=== PATIENT | female | born 1935 | race Caucasian/White ===

== ENCOUNTER 2017-08-10 22:37 | Inpatient (IN) | payer MEDICARE, SELFPAY ==
[2017-08-10 22:39] VITALS: BP 173/148; PULSE 69; RESP 14; TEMP 36.8; O2SAT 83; BMI 35.5
--- NOTE | 2017-08-10 22:48 | EKG12_ITS ---
Test Reason : Blood Pressure : / mmHG Vent. Rate : 069 BPM Atrial Rate : 077 BPM P-R Int : 000 ms QRS Dur : 122 ms QT Int : 424 ms P-R-T Axes : 000 -12 098 degrees QTc Int : 454 ms Atrial fibrillation Right bundle branch block Abnormal ECG Confirmed by LINDY STOVALL, JENNIFER ([id number]), editor publications STEFANIA WILDER ([id number]) on 08/12/2017 2:13:15 PM Referred By: NEIL Confirmed By:JENNIFER ISRAEL MD
--- NOTE | 2017-08-10 23:00 | RAD_ITS ---
STUDY: X-RAY CHEST REASON FOR EXAM: Female, 82 years old. Hypoxia TECHNIQUE: PA and lateral COMPARISON: None. FINDINGS: Moderate to severe pulmonary edema demonstrated with small bilateral effusions. Heart is enlarged. Normal mediastinum and damian. Normal visualized pulmonary arteries. Tortuous diffusely calcified aortic arch and descending thoracic aorta. Postop change status post median sternotomy and CABG. Spine demonstrates spondylosis and multilevel chronic compression deformities. Normal visualized ribs, clavicles, and shoulders. There is no demonstrated abnormality of the visualized soft tissue structures of the upper abdomen. RAD/Chest PA and Lateral IMPRESSION: Moderate to severe congestive failure with small bilateral effusions Electronically Signed: Curt Rowe MD at 23:23 EDT , Service support ,
[2017-08-10 23:05] LABS: Absolute Lymphocyte Count 1.39 X10^3/ul (0.83-4.51); Basophil# 0.02 X10^3/uL; Basophil% 0.2 % (0-1); Eosinophil# 0.08 X10^3/uL; Eosinophils% 0.8 % (0-5); Hematocrit 33.2 % (37-47); Hemoglobin 9.5 g/dl (12.0-15.0); Lymphocyte # 1.39 X10^3/ul (4.0); Lymphocyte % 13.5 % (19-41); Mean Corp Hgb Conc 28.6 g/gl (32-36); Mean Corpuscular Hgb 27.5 pg (27.0-32.0); Mean Platelet Vol. 11.2 fl (6.2-12.0); Monocyte# 0.75 X10^3/uL; Monocyte% 7.3 % (0-10); Neutrophil # 8.03 X10^3/uL (2.7-7.7); Platelet Count 229 K/mm3 (150-450); RBC Distribution Width CV 18.7 % (11.6-14.6); RBC Distribution Width SD 61.9 fl (35.1-43.9); Red Blood Count 3.46 M/mm3 (4.2-5.4); White Blood Count 10.3 K/mm3 (4.4-11.0)
[2017-08-10 23:07] LABS: POSITIVE COUNT NO; POSITIVE DIFFERENTIAL NO; POSITIVE MORPHOLOGY NO
[2017-08-10 23:12] LABS: International Normalized Ratio 1.8; Prothrombin Time (Protime)PT. 21.1 SECONDS (11.7-14.9)
[2017-08-10 23:16] LABS: Anion Gap 7 (5-15); BUN 26 mg/dL (7-18); BUN/Creat Ratio 17.1 RATIO (10-20); Calcium,Total 8.9 mg/dL (8.5-10.1); Chloride 116 mmol/L (98-107); Creatinine, Serum 1.52 mg/dL (0.55-1.02); EST Glomerular Filtration Rate 35 mL/min (>60); Est Glom Filt Rate - Afr Amer 42 mL/min (>60); Estimated Creatinine Clearance 25.07 ml/min; Glucose 170 mg/dL (74-106); Potassium 4.7 mmol/L (3.5-5.1); Sodium Level 148 mmol/L (136-145)
[2017-08-10 23:32] VITALS: BP 168/74; PULSE 66
[2017-08-10] MEDS: Nitroglycerin Infusion 250 ML 3 MG IV (23:32)
[2017-08-10] MEDS: Furosemide 100 MG/10 ML Vial 80 MG IV (23:32)
--- NOTE | 2017-08-10 23:32 | ED.DCSUM_ITS ---
- ER Visit Summary Date of Service: 08/10/17 Chief Complaint: Acute shortness of breath History of Present Illness: The patient is a 82 F who was brought to the ER because of shortness of breath started 6 hours ago. Steward/Stewardess Second was concerned because she was breathing rapidly and was labored. Patient is not a good informant. Her major complaint is shortness of breath. There is a history of coronary disease, CHF, COPD, hypertension hyperlipidemia. She does have history of peptic ulcer disease and atrial fibrillation. She is on Coumadin. She denies fever, chills night sweats. Denies weight gain or weight loss. Denies change in vision, blurred vision or double vision. She denies any ENT symptoms. She denies palpitations or chest discomfort. Respiratory is positive for dyspnea, dyspnea on exertion orthopnea. She also complains of edema of her lower extremities. She states her right leg is always slightly larger than left. She denies any abdominal pain, nausea vomiting diarrhea. She denies any urologic symptoms. Denies myalgias arthralgias. She denies bruising easily. She does have history of angioedema secondary to lisinopril. Physical Examination: Vital signs are marked for an elevated blood pressure. She is hypoxic with a pulse ox 83% on room air. Her breathing is labored. HEENT is remarkable poor dentition. Lungs reveal rales throughout. Heart is regular. Unable to appreciate murmur secondary to respiratory sounds. Abdomen soft nontender. She does have bilateral pitting edema 2-3+. There is hepatojugular reflux. She is alert and oriented. Test Results: EKG reveals a sinus rhythm with a right bundle branch block. Chest x-ray reveals a borderline cardiomegaly and pulmonary edema. Sternotomy wires noted. CBC is marked for H&H 9.5 and 33.2. Electro panels marked first sodium 148 chloride of 116. BUN is 26 with a 21.52. Glucose elevated 170. INR subtherapeutic 1.8. Troponin is 0.04. BNP is pending. Emergency Department Course and Treatment: Since patient hypoxic she was placed on oxygen. In light of chest x-ray findings BiPAP was ordered. She also was administered 80 mg of Lasix IV push and nitro glycerin drip for preload reduction. Workup was undertaken to rule out cardiac versus pulmonary etiology of her symptoms. Treatment Plan: BiPAP, diuresis and admission to stepdown unit for acute exacerbation of CHF/pulmonary edema Disposition: Admit PCU stepdown Impression: 1. Respiratory failure with hypoxia 2. Pulmonary edema 3. Anemia unknown etiology 4. Hypernatremia 5. End-stage renal disease 6. Subtherapeutic INR This note was generated with [employer] dictation software. It may contain incorrect words, spelling, and punctuation that were not noted in review of the chart prior to signing ED Disposition - Plan for ED Patient: Chief Complaint: Shortness of Breath Referrals: Eliot Loja MD [Primary Care Provider] -
--- NOTE | 2017-08-10 23:34 | ED.RN ---
son called and gave phone call if having questions [phone]
[2017-08-10 23:38] LABS: BNP,B-Type NATRIURETIC PEPTIDE 1166.1 pg/mL (0-100)
--- NOTE | 2017-08-10 23:46 | NURSING ---
SPOKE WITH CONCHITA AND UPDATED HER THAT PT WAS TO BE ADMITTED TO PCU ON BIPAP, CONCHITA STATED IF THERE WERE ANY QUESTIONS OR CONCERNS TO CALL HER AT [phone].
--- NOTE | 2017-08-10 23:51 | HP.PCM_ITS ---
Problem List (1) Acute on chronic combined systolic and diastolic heart failure Status: Acute (2) COPD exacerbation Status: Acute (3) Afib Status: Acute (4) Gastric ulcer Status: Chronic (5) Colon polyps Status: Chronic (6) CHF (congestive heart failure) Status: Acute (7) CAD (coronary artery disease) Status: Acute (8) Chest pain Status: Acute (9) Diabetes Status: Chronic (10) Dizziness Status: Chronic (11) Fall Status: Acute (12) SOB (shortness of breath) Status: Acute (13) Chronic coronary artery disease Status: Chronic History of Present Illness Date of Admission: 08/10/17 Chief Complaint: Shortness of breath for today, for about 6 hours prior to arrival The patient is a 82 year old F with history of chronic combined systolic and diastolic heart failure as per last echo in 08/2014, coronary artery status post CABG about 10 years ago came to ER with acute onset of shortness of breath for about 6 hours prior to arrival. Patient denies chest pain. Patient has history of COPD, hypertension and paroxysmal A. fib and on Coumadin. She denies fever, chills, sore throat or URI. In ED, she was put on BiPAP because of acute hypoxic respiratory failure along with tachypnea. Chest x-ray shows pulmonary edema. ER physician Dr. Lerner started on IV nitroglycerin drip. [] Past Medical History Past Medical History (Chronic Problems): Chronic Problems Gastric ulcer (Chronic) Colon polyps (Chronic) Diabetes (Chronic) Dizziness (Chronic) Chronic coronary artery disease (Chronic) Allergies LEANDER Inhibitors Allergy (Verified 07/17/16 16:14) Unknown Home Medications: Ambulatory Orders Medication Instructions Recorded Atorvastatin Calcium [Lipitor] 40 mg PO QHS 04/19/17 Calcium Carbonate/Vitamin D3 1 each PO BID 04/19/17 [Calcium 500-Vit D3 600 Tablet] Furosemide [Lasix] 40 mg PO DAILY 04/19/17 Hydralazine HCl 50 mg PO 4X/DAY 04/19/17 Insulin Detemir [Levemir] 30 unit SQ BID 04/19/17 Isosorbide Mononitrate [Imdur] 30 mg PO DAILY 04/19/17 Metformin HCl [Metformin HCl ER] 1,000 mg PO DAILY 04/19/17 Metoprolol Tartrate [Lopressor 50 mg PO BID 01/06/18 (Beta Rah)] Mirtazapine [Remeron] 15 mg PO QHS 04/19/17 Multivitamin [Daily Multiple 1 each PO DAILY 04/19/17 Vitamin] Omeprazole 40 mg PO DAILY 04/19/17 Warfarin [Coumadin ([facility])] 6 mg PO SUMOWEFRSA 04/19/17 Spironolactone 12.5 mg PO DAILY 08/10/17 Warfarin [Coumadin ([facility])] 3 mg PO TUTH 08/10/17 Surgical History: - - appendectemy, cholecystectemy, tonsil and adenoids, cabg - she cannot having any stents Smoking Status: Never smoker - *Family History Maternal History Items: No pertinent history Review of Systems Constitutional: Denies: Chills, Fever, Weight Change HEENT: Denies: Head Aches, Sinus Congestion, Sinus Drainage Cardiovascular: Reports: Edema. Denies: Chest Pain, Palpitations Respiratory: Reports: Shortness of Breath, Shortness of breath upon exertion. Denies: Cough, Shortness of breath at rest, Sputum production Gastrointestinal: Denies: Abdominal Pain, Nausea, Vomiting Genitourinary: Denies: Dysuria Musculoskeletal: Reports: Joint Pain. Denies: Joint Tenderness Skin: Denies: Rash, Wounds Neurological: Denies: Numbness, Tingling, Focal weakness Psychiatric: Denies: Anxiety, Depression, Homicidal Ideations, Suicidal Ideations Hematologic/ Lymphatic: Denies: Easy Bruising, Easy Bleeding VTE Information - Inpt Only VTE Present on Admission: No VTE Mechan Device Prophylaxis: Knee High DARLEEN Hose VTE Pharm Prophylaxis ordered?: Yes Patient Problems: Active and Suspected Problems Acute on chronic combined systolic and diastolic heart failure (Acute) COPD exacerbation (Acute) - Physical Exam General: Alert, Oriented x3, Cooperative HEENT: Atraumatic, PERRLA, EOMI, Normocephalic Neck: Supple, No JVD - Not able to assess adequately because of short neck and patient also on BiPAP, Negative Carotid Bruits Lungs: Diminished, Rhonchi, Tachypneic, Using Accessory Muscles, Wheezes, - - On BiPAP Cardiovascular: Normal S1, Normal S2, Irregular Rate, Murmur Abdomen: Bowel Sounds Present, Soft, Non Tender, Non-Distended Extremities: Capillary Refill Less than 3 Seconds, Edema Skin: No rashes, No breakdown Musculoskeletal: No Tenderness to Palpation of Joints or Extremities, Arthritic Changes Neurological: Cranial nerves II-XII grossly intact Psych/Mental Status: Normal Affect, Appropriate Vital Signs Temp Pulse Resp BP Pulse Ox 98.3 F 66 14 168/74 H 83 08/10/17 22:39 08/10/17 23:32 08/10/17 22:39 08/10/17 23:32 08/10/17 22:39 Oxygen Flow Rate (L/min) 2 Oxygen Delivery Method Nasal Cannula Weight: 207 lb 0.225 oz Body Mass Index (BMI) 35.5 Finger Stick Blood Glucose 65 Laboratory Tests Past 24 Hrs 08/10/17 08/10/17 08/10/17 22:44 22:44 22:44 WBC 10.3 RBC 3.46 L Hgb 9.5 L Hct 33.2 L MCV 96.0 MCH 27.5 MCHC 28.6 L RDW 18.7 H RDW Differential 61.9 H Plt Count 229 MPV 11.2 Immature Gran % (Auto) 0.200 Neut % (Auto) 78.0 H Lymph % (Auto) 13.5 L Roberts % (Auto) 7.3 Eos % (Auto) 0.8 Baso % (Auto) 0.2 Absolute Neuts (auto) 8.0 H Absolute Lymphs (auto) 1.39 Total Counted Not Reportable PT INR Sodium 148 H Potassium 4.7 Chloride 116 H Carbon Dioxide 25.0 Anion Gap 7 BUN 26 H Creatinine 1.52 H Estim Creat Clear Calc 25.07 Est GFR (MDRD) Af Amer 42 L Est GFR (MDRD) Non-Af 35 L BUN/Creatinine Ratio 17.1 Glucose 170 H Calcium 8.9 Troponin I 0.04 B-Natriuretic Peptide 1166.1 H 08/10/17 22:44 WBC RBC Hgb Hct MCV MCH MCHC RDW RDW Differential Plt Count MPV Immature Gran % (Auto) Neut % (Auto) Lymph % (Auto) Roberts % (Auto) Eos % (Auto) Baso % (Auto) Absolute Neuts (auto) Absolute Lymphs (auto) Total Counted PT 21.1 H INR 1.8 Sodium Potassium Chloride Carbon Dioxide Anion Gap BUN Creatinine Estim Creat Clear Calc Est GFR (MDRD) Af Amer Est GFR (MDRD) Non-Af BUN/Creatinine Ratio Glucose Calcium Troponin I B-Natriuretic Peptide Assessment/Plan Active and Suspected Problems Acute on chronic combined systolic and diastolic heart failure (Acute) COPD exacerbation (Acute) The patient is a 82 year old F with history of chronic combined systolic and diastolic heart failure as per last echo in 08/2014, coronary artery status post CABG about 10 years ago came to ER with acute onset of shortness of breath for about 6 hours prior to arrival. Patient denies chest pain. Patient has history of COPD, hypertension and paroxysmal A. fib and on Coumadin. She denies fever, chills, sore throat or URI. In ED, she was put on BiPAP because of acute hypoxic respiratory failure along with tachypnea. Chest x-ray shows pulmonary edema. ER physician Dr. Lerner started on IV nitroglycerin drip. ABG shows A. fib with RBBB at 69 bpm. Previous EKG in August 2015 was normal sinus rhythm and prior to that in 2014 was A. fib. 1. Acute hypoxic respiratory failure most probably secondary to pulmonary edema : Currently patient is on BiPAP. Patient is admitted on stepdown unit. ABG ordered. Titrate the BiPAP accordingly. 2. Acute on chronic systolic and diastolic combined heart failure with pulmonary edema with history of coronary artery disease history of ischemic cardiomyopathy: Patient started on IV Lasix. He got Lasix 80 mg in ER. Patient does not have any chest pain/pressure. First troponin negative. Discontinue nitro drip and started on nitroglycerin 2% ointment every 6 hourly. Patient on heart failure is in including metoprolol, hydralazine, nitrate, aspirin. Cardiology consult. 2D echo ordered. Cycle cardiac enzymes. 3. COPD with mild bronchitis: Started on bronchodilator [id number], IV Solu-Medrol, incentive spirometry, oxygen therapy and Mucinex. 4. Other chronic comorbidities include coronary artery disease post CABG, history of gastric ulcer, paroxysmal A. fib on Coumadin: DVT prophylaxis: INR is 1.8. Coumadin resumed. Watch INR. As the patient has history of gastric ulcer does not want to be aggressive anticoagulation. Code Visit Inpatient E&M: 76962 Init Hosp L3
[2017-08-10 23:55] VITALS: PULSE 62; RESP 12; RESP 26; O2SAT 98
[2017-08-10 23:56] VITALS: BP 183/73; PULSE 61; RESP 22; O2SAT 97
[2017-08-11] VITALS (25 sets, daily range): BP systolic 115–167; BP diastolic 38–88; PULSE 40–79; RESP 16–22; TEMP 36.6–37; O2SAT 92–98; BMI 33.7
[2017-08-11 02:36] LABS: Magnesium 1.8 mg/dL (1.6-2.6)
[2017-08-11] MEDS: Nitroglycerin Oint 1 INCH PACKET 2 INCH TRANSDERM. ×3 (03:40→17:16)
[2017-08-11] MEDS: 0.9% NaCl Peripheral Flush Adult/Peds IV (05:23)
--- NOTE | 2017-08-11 05:55 | ECHOD_ITS ---
Reason For Study: CHF Procedure This was a 2D Doppler, Color Flow transthoracic echocardiogram. Exam performed portable in patient room. Left Ventricle Normal LV size. Severe concentric left ventricular hypertrophy. Left ventricular systolic function is lower limits of normal. The estimated ejection fraction is 50 %. Mild segmental systolic dysfunction (see wall motion). Unable to assess diastolic dysfunction. [place] : Akinetic. Lateral [place] : Hypokinetic. Mid-anteroseptal : Hypokinetic. The rest of the wall segments are normal. Right Ventricle Normal RV size. Normal systolic function. Atria The left atrium is mildly enlarged. Normal right atrium. Mitral Valve Mild diffuse mitral valve thickening. Tricuspid Valve Normal tricuspid valve. Mild to moderate (1-2+) tricuspid valve insufficiency. Pulmonary artery systolic pressure is 46 mmHg. Mild pulmonary hypertension. Aortic Valve Trisinus/trileaflet aortic valve. Mild focal aortic valve calcification. Pulmonic Valve Normal pulmonic valve. Great Vessels Calcified aortic root. The pulmonary artery is normal size. Normal inferior vena cava. Pericardium/Pleural No pericardial effusion. MMode/2D Measurements & Calculations LVIDd: 5.3 cm IVSd: 1.8 cm Ao root diam: 3.1 cm LVIDs: 3.7 cm LVPWd: 1.7 cm RVDd: 3.6 cm FS: 30.3 % LAV(MOD-bp): 62.7 ml EDV(MOD-sp4): 100.4 ml SV(MOD-sp4): 50.9 ml LAV(MOD-bp) Indexed: 32.4 ml/m2 ESV(MOD-sp4): 49.4 ml LAV(MOD-sp2): 56.7 ml EF(MOD-sp4): 50.8 % LAV(MOD-sp4): 67.7 ml LA A4 area: 21.1 cm2 RA A4 area: 16.0 cm2 Doppler Measurements & Calculations MV E max luisa: 133.5 cm/sec Ao V2 max: 151.3 cm/sec LV V1 max: 78.5 cm/sec Ao max P.2 mmHg LV V1 max P.5 mmHg PA V2 max: 106.3 cm/sec TR max luisa: 310.1 cm/sec TR max P.6 mmHg Interpretation Summary Normal LV size. Severe concentric left ventricular hypertrophy. The estimated ejection fraction is 50 %. Mild segmental systolic dysfunction (see wall motion). Unable to assess diastolic dysfunction. Pulmonary artery systolic pressure is 46 mmHg. Mild pulmonary hypertension. Compared to prior study, there is no significant change. Ordering Physician: Ariel Mckeon Referring Physician: JAYCE TELLO Performed By: Luann Lunsford RDCS
[2017-08-11] MEDS: Ipratropium/Albuterol Sulfate 3 ML AMPUL.NEB INHALATION ×3 (06:38→18:58)
[2017-08-11 06:44] LABS: Absolute Lymphocyte Count 1.02 X10^3/ul (0.83-4.51); Absolute Neutrophil Count 6.9 X10^3/uL (2.0-7.7); Basophil# 0.02 X10^3/uL; Basophil% 0.2 % (0-1); Eosinophil# 0.09 X10^3/uL; Hematocrit 32.1 % (37-47); Hemoglobin 9.1 g/dl (12.0-15.0); Lymphocyte # 1.02 X10^3/ul (4.0); Lymphocyte % 11.8 % (19-41); Mean Corp Hgb Conc 28.3 g/gl (32-36); Mean Corpuscular Volume 95.3 fL (81-99); Mean Platelet Vol. 11.3 fl (6.2-12.0); Monocyte# 0.62 X10^3/uL; Monocyte% 7.2 % (0-10); Neutrophil # 6.86 X10^3/uL (2.7-7.7); Neutrophil % 79.6 % (47-70); POSITIVE COUNT NO; POSITIVE DIFFERENTIAL NO; POSITIVE MORPHOLOGY NO; Platelet Count 225 K/mm3 (150-450); RBC Distribution Width CV 18.4 % (11.6-14.6); RBC Distribution Width SD 61.1 fl (35.1-43.9); Red Blood Count 3.37 M/mm3 (4.2-5.4); White Blood Count 8.6 K/mm3 (4.4-11.0)
[2017-08-11 06:53] LABS: Anion Gap 5 (5-15); BUN 22 mg/dL (7-18); BUN/Creat Ratio 15.3 RATIO (10-20); Calcium,Total 8.6 mg/dL (8.5-10.1); Chloride 114 mmol/L (98-107); Cholesterol 70 mg/dL (200); Creatinine, Serum 1.44 mg/dL (0.55-1.02); EST Glomerular Filtration Rate 37 mL/min (>60); Est Glom Filt Rate - Afr Amer 45 mL/min (>60); Estimated Creatinine Clearance 26.46 ml/min; Glucose 72 mg/dL (74-106); High Density Lipoprotein 29 mg/dL; Potassium 4.1 mmol/L (3.5-5.1); Sodium Level 148 mmol/L (136-145); Thyroid Stim Hormone (TSH) 0.97 uIU/mL (0.358-3.74); Triglycerides 102 mg/dL; Very Low Density Lipoprotein 20 mg/dL (5-40)
--- NOTE | 2017-08-11 08:01 | CON.PCM_ITS ---
Reason for Consult Date of Consultation: 08/11/17 Reason for Consultation: Shortness of breath. History of Present Illness: The patient is a 82 year old F who presented to the emergency room complaining of shortness of breath as well as pedal edema. She does have a history of paroxysmal atrial fibrillation obstructive lung disease and coronary artery disease status post carotid bypass surgery. She has been following up with Dr. Bladimir Lemon in the office but says that her clinical condition has been getting worse and so she presented to the emergency room where she was evaluated and she was noted to be in clinical heart failure. In addition she was also noted to be in atrial fibrillation and she had an elevated natriuretic peptide level. Due to the above she was treated with intravenous Lasix and subsequently intravenous nitroglycerin and then she was admitted to the telemetry care unit. Cardiology was called for further evaluation and management. [] Past Medical History Allergies/Adverse Reactions: Allergies LEANDER Inhibitors Allergy (Verified 07/17/16 16:14) Unknown Home Medications: Ambulatory Orders Medication Instructions Recorded Atorvastatin Calcium [Lipitor] 40 mg PO QHS 04/19/17 Calcium Carbonate/Vitamin D3 1 each PO BID 04/19/17 [Calcium 500-Vit D3 600 Tablet] Furosemide [Lasix] 40 mg PO DAILY 04/19/17 Hydralazine HCl 50 mg PO 4X/DAY 04/19/17 Insulin Detemir [Levemir] 30 unit SQ BID 04/19/17 Isosorbide Mononitrate [Imdur] 30 mg PO DAILY 04/19/17 Metformin HCl [Metformin HCl ER] 1,000 mg PO DAILY 04/19/17 Metoprolol Tartrate [Lopressor 50 mg PO BID 04/19/17 (Beta Rah)] Mirtazapine [Remeron] 15 mg PO QHS 04/19/17 Multivitamin [Daily Multiple 1 each PO DAILY 04/19/17 Vitamin] Omeprazole 40 mg PO DAILY 04/19/17 Warfarin [Coumadin ([facility])] 6 mg PO SUMOWEFRSA 04/19/17 Spironolactone 12.5 mg PO DAILY 08/10/17 Warfarin [Coumadin ([facility])] 3 mg PO TUTH 08/10/17 Past Medical History (Chronic Problems): Chronic Problems Gastric ulcer (Chronic) Colon polyps (Chronic) Diabetes (Chronic) Dizziness (Chronic) Chronic coronary artery disease (Chronic) Surgical History: coronary bypass surgery, - - appendectemy, cholecystectemy, tonsil and adenoids, cabg - she cannot having any stents - *Family History Maternal History Items: No pertinent history Smoking Status: Never smoker Alcohol: None Drugs: None Review of Systems - Review of Systems General: Denies: Fever, Night Sweats, Fatigue Cardiovascular: Reports: Shortness of Breath, Shortness of Breath at Rest, Shortness of Breath with Exertion. Denies: Chest Discomfort, Orthopnea, PND, Peripheral Edema, Palpitations, Lightheadedness, Dizziness, Near Syncope, Syncope Respiratory: Denies: Cough, Sputum Production, Hemoptysis Gastrointestinal: Denies: Hematemesis, Hematochezia, Melena Genitourinary: Denies: Dysuria, Hematuria Skin: Denies: Rash Subjectve: Patient seen and evaluated. Appears to be breathing much better this morning. Objective: Vital Signs Temp Pulse Resp BP Pulse Ox 98.1 F 64 20 H 153/67 H 98 08/11/17 04:00 08/11/17 07:40 08/11/17 04:00 08/11/17 04:00 08/11/17 04:00 Oxygen Flow Rate (L/min) 2 Oxygen Delivery Method Nasal Cannula Weight: 196 lb 6.91 oz Body Mass Index (BMI) 33.7 Intake and Output for Last 24 Hours 08/09/17 08/10/17 08/11/17 23:59 23:59 23:59 Intake Total 13.7 / 13.7 Output Total 1800 / 1800 Balance -1786.3 / -1786.3 General: Awake, Alert, Oriented x 3 HEENT: PERRL, EOMI, Sclera Non Icteric Neck: Supple, Good ROM, No Lymph Node Enlargement Lungs: Clear to auscultation Cardiovascular: Irregular Rhythm, Normal S1, Normal S2, No Murmurs, No Rubs, No Gallops Vascular: No Carotid Bruits, Normal Femoral Pulses, Normal Radial Pulses, Normal Dorsalis Pedal Pulse, Normal Posterior Tibial Pulses Abdomen: Bowel Sounds Present, Soft, Non Tender, No HSM, No Organomegaly Extremities: No Cyanosis, No Clubbing, No edema, Trace LLE Edema Neurological: No Focal Motor or Sensory Deficit Psych/Mental Status: Appropriate 08/11/17 02:59: Troponin I 0.03 08/11/17 06:20: WBC 8.6, RBC 3.37 L, Hgb 9.1 L, Hct 32.1 L, MCV 95.3, MCH 27.0, MCHC 28.3 L, RDW 18.4 H, RDW Differential 61.1 H, Plt Count 225, MPV 11.3, Immature Gran % (Auto) 0.200, Neut % (Auto) 79.6 H, Lymph % (Auto) 11.8 L, [place] % (Auto) 7.2, Eos % (Auto) 1.0, Baso % (Auto) 0.2, Absolute Neuts (auto) 6.9, Total Counted Not Reportable 08/11/17 06:20: Sodium 148 H, Potassium 4.1, Chloride 114 H, Carbon Dioxide 29.0 , Anion Gap 5, BUN 22 H, Creatinine 1.44 H, Est GFR (MDRD) Af Amer 45 L, Est GFR (MDRD) Non-Af 37 L, BUN/Creatinine Ratio 15.3, Glucose 72 L, Calcium 8.6, Troponin I 0.04, Triglycerides 102, Cholesterol 70, LDL Cholesterol 21, VLDL Cholesterol 20, HDL Cholesterol 29 L Rhythm: EKG: Atrial fibrillation with a controlled ventricular response rate and right bundle branch block Assessment/Plan 1. Congestive heart failure-acute diastolic She presents with shortness of breath pedal edema and has x-ray findings suggestive of congestive heart failure the etiology of the above is unclear at this time but likely secondary to atrial fibrillation which appears to be paroxysmal and new at this time. My recommendation today will be to reevaluate her left ventricular ejection fraction with the echocardiogram and to continue her beta-rah as well as continue the diuretics which have been instituted. She appears to have diuresed quite a bit and is feeling much better. Depending on the findings further recommendations will be made. 2. Coronary artery disease. Patient has evidence of known coronary artery disease but has not had any angina at this time there are no EKG changes and troponin levels are not significantly abnormal . We will continue to monitor the above on the medical therapy and see how she does. 3. Hypertension. Patient has known history of hypertension and at this particular time her blood pressure is fairly well-controlled so we will continue medical therapy with no major changes. Depending on the findings further recommendations will then be made. 4. Paroxysmal atrial fibrillation. Patient has evidence of paroxysmal atrial fibrillation and will remain anticoagulated for now. An echocardiogram will be reevaluated to assess her left ventricular systolic function. Depending on the findings further recommendations will be made. She appears to be asymptomatic with regard to the above though however. Thank you for allowing me to participate in the care of your patient. Please don't hesitate to call if any issues arise
[2017-08-11] MEDS: hydrALAZINE 50 MG Tablet PO ×3 (10:25→21:48)
[2017-08-11] MEDS: Pantoprazole Sodium 40 MG Tablet PO (10:25)
[2017-08-11 10:26] LABS: Bedside Glucose 160 mg/dL (70-110)
[2017-08-11] MEDS: Metoprolol Tartrate 25 MG Tablet 12.5 MG PO ×2 (10:27→21:48)
[2017-08-11] MEDS: guaiFENesin 1,200 MG Tablet 1200 MG PO ×2 (10:28→21:48)
[2017-08-11] MEDS: Polyethylene Glycol 3350 17 GM PACKET PO (10:30)
[2017-08-11] MEDS: Azithromycin 250 MG Tablet 500 MG PO (10:34)
--- NOTE | 2017-08-11 11:09 | RAD_ITS ---
STUDY: X-RAY CHEST REASON FOR EXAM: Female, 82 years old. Fever and cough TECHNIQUE: PA and lateral views of the chest. COMPARISON: Yesterday FINDINGS: EKG leads overlie the chest Lungs are expanded with persistent superimposed interstitial edema and small bilateral pleural effusions. Findings are again consistent with CHF, and there has been little significant interval change since the previous study. Previous CABG with stable cardiomegaly. Normal mediastinum and damian. Normal visualized pulmonary arteries. Normal visualized aortic arch and descending thoracic aorta. There are diffuse degenerative changes of the visualized thoracic spine. There is degenerative osteoarthritis of the bilateral shoulders. There is no demonstrated abnormality of the visualized soft tissue structures of the upper abdomen. RAD/Chest PA and Lateral IMPRESSION: No interval change Electronically Signed: Marito Molina MD at 11:36 EDT , Service support ,
--- NOTE | 2017-08-11 11:26 | CASEMGMT ---
Face to Face with patient for initial transition planning/care coordination assessment. RN LOC introduced self and role at [facility], pt voices understanding and consents to assessment at this time. Pt is lying in bed in no distress at this time. Pt is A/O x3 at this time and answers most questions appropriately at this time. Care providers, pharmacy, and demographics verified. See attached link. Pt voices no further concerns/needs at this time. Advised pt to ask for CM if any further questions/concerns/needs arise, voices understanding. PLAN: Home w/ resumption of aides/day care. [place] JANETT MONTERROSO
--- NOTE | 2017-08-11 14:11 | PCM.PN.HOSP ---
Patient Problems: Active and Suspected Problems Acute on chronic combined systolic and diastolic heart failure (Acute) Acute respiratory failure with hypoxia (Acute) Subjective: Breathing better. No chest pain. Vitals/I&O's: Vital Signs Temp Pulse Resp BP Pulse Ox 36.7 C 71 20 H 115/38 L 96 08/11/17 12:00 08/11/17 12:00 08/11/17 12:00 08/11/17 13:11 08/11/17 12:00 Oxygen Flow Rate (L/min) 4 Oxygen Delivery Method Room Air Weight: 89.1 kg Body Mass Index (BMI) 33.7 Intake and Output for Last 24 Hours 08/09/17 08/10/17 08/11/17 23:59 23:59 23:59 Intake Total 618.8 / 618.8 Output Total 3100 / 3100 Balance -2481.2 / -2481.2 General: Alert, Cooperative, No apparent distress HEENT: Atraumatic, Normocephalic Neck: No JVD, Thyroid Normal Size and Texture Lungs: Clear to auscultation - anteriorly, Normal air movement, No rhonchi, No wheeze Cardiovascular: Regular rate, Regular Rhythm, Normal S1, Normal S2, No murmurs Abdomen: Bowel Sounds Present, Soft, Non Tender, Non-Distended, No Hepato-splenomegaly Extremities: No edema, No Calf Tenderness Skin: No rashes, No breakdown Musculoskeletal: No Tenderness to Palpation of Joints or Extremities, No Muscle Wasting Psych/Mental Status: Normal Affect, Appropriate Microbiology Past 72 Hours 08/11/17 03:25 Mucosa - Nose Influenza Types A,B Direct FA (SIXTO) - Final Laboratory Results 08/11/17 02:59: Troponin I 0.03 08/11/17 06:20: WBC 8.6, RBC 3.37 L, Hgb 9.1 L, Hct 32.1 L, MCV 95.3, MCH 27.0, MCHC 28.3 L, RDW 18.4 H, RDW Differential 61.1 H, Plt Count 225, MPV 11.3, Immature Gran % (Auto) 0.200, Neut % (Auto) 79.6 H, Lymph % (Auto) 11.8 L, [place] % (Auto) 7.2, Eos % (Auto) 1.0, Baso % (Auto) 0.2, Absolute Neuts (auto) 6.9, Absolute Lymphs (auto) 1.02, Total Counted Not Reportable 08/11/17 06:20: Sodium 148 H, Potassium 4.1, Chloride 114 H, Carbon Dioxide 29.0, Anion Gap 5, BUN 22 H, Creatinine 1.44 H, Estim Creat Clear Calc 26.46, Est GFR (MDRD) Af Amer 45 L, Est GFR (MDRD) Non-Af 37 L, BUN/Creatinine Ratio 15.3, Glucose 72 L, Calcium 8.6, Troponin I 0.04, Triglycerides 102, Cholesterol 70, LDL Cholesterol 21, VLDL Cholesterol 20, HDL Cholesterol 29 L, TSH 0.97 08/11/17 10:21: POC Glucose 160 H 08/11/17 12:30: Troponin I 0.03 Current Medications Acetaminophen (Tylenol) 650 mg PO Q6H PRN PRN PRN Reason: Mild Pain (scale 0-3)/T>100.7 Al Hydroxide/Mg Hydroxide (Mylanta Ii) 30 ml PO Q6H PRN PRN PRN Reason: Gastric Burning Albuterol Sulfate (Ventolin Aerosols) 2.5 mg INHALATION Q2H PRN PRN PRN Reason: SHORTNESS OF BREATH Albuterol/Ipratropium (Duoneb) 3 ml INHALATION Q4HWA.RT REPLACED BY [facility] Last Admin: 08/11/17 11:10 Dose: Not Given Atorvastatin Calcium (Lipitor) 40 mg PO QHS REPLACED BY [facility] Azithromycin (Zithromax) 500 mg PO DAILY REPLACED BY [facility] Stop: 08/13/17 10:01 Last Admin: 08/11/17 10:34 Dose: 500 mg Bisacodyl (Dulcolax) 10 mg RECTAL DAILY PRN PRN PRN Reason: Constipation Docusate Sodium (Colace) 200 mg PO BID PRN PRN PRN Reason: Constipation Guaifenesin (Mucinex) 1,200 mg PO BID REPLACED BY [facility] Last Admin: 08/11/17 10:28 Dose: 1,200 mg Hydralazine HCl (Apresoline) 50 mg PO 4X/DAY REPLACED BY [facility] Last Admin: 08/11/17 10:25 Dose: 50 mg Furosemide 500 mg/ (Miscellaneous Information) 50 mls @ 1 mls/hr CONT INF .Q50H REPLACED BY [facility] PRN Reason: 10 MG/HR Last Admin: 08/11/17 03:34 Dose: 1 mls/hr Insulin Detemir (Levemir (Bkc)) 30 units SC BID REPLACED BY [facility] Last Admin: 08/11/17 10:23 Dose: 30 u Methylprednisolone (Solu-Medrol) 40 mg IV Q8 REPLACED BY [facility] Last Admin: 08/11/17 05:23 Dose: 40 mg Metoprolol Tartrate (Lopressor (Beta Rah)) 12.5 mg PO BID REPLACED BY [facility] Last Admin: 08/11/17 10:27 Dose: 12.5 mg Mirtazapine (Remeron) 15 mg PO QHS REPLACED BY [facility] Morphine Sulfate () 1 - 2 mg IV Q4H PRN PRN PRN Reason: SEVERE PAIN (6-10/10) Nitroglycerin (Nitrobid) 2 inch TRANSDERM. Q6 REPLACED BY [facility] Last Admin: 08/11/17 13:11 Dose: 2 inch Nutritional Formula (Lactose Free) (Glucerna Shake) 120 ml PO TIDCM REPLACED BY [facility] Ondansetron HCl (Zofran) 4 mg IV Q8H PRN PRN PRN Reason: Nausea Oxycodone HCl (Oxyir) 5 mg PO Q4H PRN PRN PRN Reason: Moderate Pain (pain scale 4-5) Pantoprazole Sodium (Protonix) 40 mg PO DAILY REPLACED BY [facility] Last Admin: 08/11/17 10:25 Dose: 40 mg Polyethylene Glycol (Miralax) 17 gm PO DAILY REPLACED BY [facility] Last Admin: 08/11/17 10:30 Dose: 17 gm Sodium Chloride () 5 - 30 ml IV UD PRN PRN Reason: SALINE FLUSH Last Admin: 08/11/17 05:23 Dose: 30 ml Warfarin Sodium (Coumadin (Pbkc)) 3 mg PO TuTh@1700 REPLACED BY [facility] Warfarin Sodium (Coumadin (Pbkc)) 6 mg PO SuMoWeFrSa@1700 REPLACED BY [facility] Medical Necessity - Tobacco Use Smoking Status: Never smoker Assessment/Plan Active and Suspected Problems Acute on chronic combined systolic and diastolic heart failure (Acute) Acute respiratory failure with hypoxia (Acute) 1. acute HFpEF EF 50%. complicated by mild pulm HTN improved weight down to 89.1, from 93.9kg change lasix to bolus from gtt (40 BID) No ACEi nor ARB, given CKD. Instead, continue hydralazine and Imdur 2. acute hypoxic respiratory failure secondary to #1 doubt COPD exacerbation and pneumonia DC steroids and abx. 3. CKD 3 stable avoid nephrotoxic agents 4. pAfib on coumadin metoprolol tartrate 5. DVT proph: on coumadin 6. DM2 fair control continue levemir and SSI stop metformin in light of CHF Code Visit Inpatient E&M: 88990 Subs Hosp L2
--- NOTE | 2017-08-11 14:19 | PN_ITS ---
Patient Problems: Active and Suspected Problems Acute on chronic combined systolic and diastolic heart failure (Acute) Acute respiratory failure with hypoxia (Acute) Subjective: Breathing better. No chest pain. Vitals/I&O's: Vital Signs Temp Pulse Resp BP Pulse Ox 36.7 C 71 20 H 115/38 L 96 08/11/17 12:00 08/11/17 12:00 08/11/17 12:00 08/11/17 13:11 08/11/17 12:00 Oxygen Flow Rate (L/min) 4 Oxygen Delivery Method Room Air Weight: 89.1 kg Body Mass Index (BMI) 33.7 Intake and Output for Last 24 Hours 08/09/17 08/10/17 08/11/17 23:59 23:59 23:59 Intake Total 618.8 / 618.8 Output Total 3100 / 3100 Balance -2481.2 / -2481.2 General: Alert, Cooperative, No apparent distress HEENT: Atraumatic, Normocephalic Neck: No JVD, Thyroid Normal Size and Texture Lungs: Clear to auscultation - anteriorly, Normal air movement, No rhonchi, No wheeze Cardiovascular: Regular rate, Regular Rhythm, Normal S1, Normal S2, No murmurs Abdomen: Bowel Sounds Present, Soft, Non Tender, Non-Distended, No Hepato- splenomegaly Extremities: No edema, No Calf Tenderness Skin: No rashes, No breakdown Musculoskeletal: No Tenderness to Palpation of Joints or Extremities, No Muscle Wasting Psych/Mental Status: Normal Affect, Appropriate Microbiology Past 72 Hours 08/11/17 03:25 Mucosa - Nose Influenza Types A,B Direct FA (SIXTO) - Final Laboratory Results 08/11/17 02:59: Troponin I 0.03 08/11/17 06:20: WBC 8.6, RBC 3.37 L, Hgb 9.1 L, Hct 32.1 L, MCV 95.3, MCH 27.0, MCHC 28.3 L, RDW 18.4 H, RDW Differential 61.1 H, Plt Count 225, MPV 11.3, Immature Gran % (Auto) 0.200, Neut % (Auto) 79.6 H, Lymph % (Auto) 11.8 L, [place] % (Auto) 7.2, Eos % (Auto) 1.0, Baso % (Auto) 0.2, Absolute Neuts (auto) 6.9, Absolute Lymphs (auto) 1.02, Total Counted Not Reportable 08/11/17 06:20: Sodium 148 H, Potassium 4.1, Chloride 114 H, Carbon Dioxide 29.0 , Anion Gap 5, BUN 22 H, Creatinine 1.44 H, Estim Creat Clear Calc 26.46, Est GFR (MDRD) Af Amer 45 L, Est GFR (MDRD) Non-Af 37 L, BUN/Creatinine Ratio 15.3, Glucose 72 L, Calcium 8.6, Troponin I 0.04, Triglycerides 102, Cholesterol 70, LDL Cholesterol 21, VLDL Cholesterol 20, HDL Cholesterol 29 L, TSH 0.97 08/11/17 10:21: POC Glucose 160 H 08/11/17 12:30: Troponin I 0.03 Current Medications Acetaminophen (Tylenol) 650 mg PO Q6H PRN PRN PRN Reason: Mild Pain (scale 0-3)/T>100.7 Al Hydroxide/Mg Hydroxide (Mylanta Ii) 30 ml PO Q6H PRN PRN PRN Reason: Gastric Burning Albuterol Sulfate (Ventolin Aerosols) 2.5 mg INHALATION Q2H PRN PRN PRN Reason: SHORTNESS OF BREATH Albuterol/Ipratropium (Duoneb) 3 ml INHALATION Q4HWA.RT [facility] Last Admin: 08/11/17 11:10 Dose: Not Given Atorvastatin Calcium (Lipitor) 40 mg PO QHS [facility] Azithromycin (Zithromax) 500 mg PO DAILY [facility] Stop: 08/13/17 10:01 Last Admin: 08/11/17 10:34 Dose: 500 mg Bisacodyl (Dulcolax) 10 mg RECTAL DAILY PRN PRN PRN Reason: Constipation Docusate Sodium (Colace) 200 mg PO BID PRN PRN PRN Reason: Constipation Guaifenesin (Mucinex) 1,200 mg PO BID [facility] Last Admin: 08/11/17 10:28 Dose: 1,200 mg Hydralazine HCl (Apresoline) 50 mg PO 4X/DAY [facility] Last Admin: 08/11/17 10:25 Dose: 50 mg Furosemide 500 mg/ (Miscellaneous Information) 50 mls @ 1 mls/hr CONT INF .Q50H [facility] PRN Reason: 10 MG/HR Last Admin: 08/11/17 03:34 Dose: 1 mls/hr Insulin Detemir (Levemir (Bkc)) 30 units SC BID [facility] Last Admin: 08/11/17 10:23 Dose: 30 u Methylprednisolone (Solu-Medrol) 40 mg IV Q8 [facility] Last Admin: 08/11/17 05:23 Dose: 40 mg Metoprolol Tartrate (Lopressor (Beta Rah)) 12.5 mg PO BID [facility] Last Admin: 08/11/17 10:27 Dose: 12.5 mg Mirtazapine (Remeron) 15 mg PO QHS [facility] Morphine Sulfate () 1 - 2 mg IV Q4H PRN PRN PRN Reason: SEVERE PAIN (6-10/10) Nitroglycerin (Nitrobid) 2 inch TRANSDERM. Q6 [facility] Last Admin: 08/11/17 13:11 Dose: 2 inch Nutritional Formula (Lactose Free) (Glucerna Shake) 120 ml PO TIDCM [facility] Ondansetron HCl (Zofran) 4 mg IV Q8H PRN PRN PRN Reason: Nausea Oxycodone HCl (Oxyir) 5 mg PO Q4H PRN PRN PRN Reason: Moderate Pain (pain scale 4-5) Pantoprazole Sodium (Protonix) 40 mg PO DAILY [facility] Last Admin: 08/11/17 10:25 Dose: 40 mg Polyethylene Glycol (Miralax) 17 gm PO DAILY [facility] Last Admin: 08/11/17 10:30 Dose: 17 gm Sodium Chloride () 5 - 30 ml IV UD PRN PRN Reason: SALINE FLUSH Last Admin: 08/11/17 05:23 Dose: 30 ml Warfarin Sodium (Coumadin (Pbkc)) 3 mg PO TuTh@1700 [facility] Warfarin Sodium (Coumadin (Pbkc)) 6 mg PO SuMoWeFrSa@1700 [facility] Medical Necessity - Tobacco Use Smoking Status: Never smoker Assessment/Plan Active and Suspected Problems Acute on chronic combined systolic and diastolic heart failure (Acute) Acute respiratory failure with hypoxia (Acute) 1. acute HFpEF * EF 50%. * complicated by mild pulm HTN * improved * weight down to 89.1, from 93.9kg * change lasix to bolus from gtt (40 BID) * No ACEi nor ARB, given CKD. Instead, continue hydralazine and Imdur 2. acute hypoxic respiratory failure * secondary to #1 * doubt COPD exacerbation and pneumonia * DC steroids and abx. 3. CKD 3 * stable * avoid nephrotoxic agents 4. pAfib * on coumadin * metoprolol tartrate 5. DVT proph: on coumadin 6. DM2 * fair control * continue levemir and SSI * stop metformin in light of CHF Code Visit Inpatient E&M: 77433 Subs Hosp L2
--- NOTE | 2017-08-11 14:28 | CASEMGMT ---
Social Work Received referral from RN LOC that pt is currently receiving Passport services. Passport [employer]iller Hand is Samaria Phillips ([phone]). Phone call placed to Samaria and BROCK left informing of pt admission and plan to return home upon d/c. SEDA will continue to follow as needed. SAVANAH Lockwood
[2017-08-11 16:10] LABS: Bedside Glucose 286 mg/dL (70-110)
[2017-08-11] MEDS: Glucerna Shake 120 ML LIQUID PO (17:11)
[2017-08-11] MEDS: Furosemide 40 MG/4 ML Vial IV (17:16)
[2017-08-11] MEDS: Atorvastatin Calcium 40 MG Tablet PO (21:48)
[2017-08-11] MEDS: Mirtazapine 15 MG Tablet PO (21:49)
[2017-08-11 23:55] LABS: Bedside Glucose 188 mg/dL (70-110)
[2017-08-12] VITALS (28 sets, daily range): BP systolic 108–153; BP diastolic 45–60; PULSE 55–105; RESP 16–28; TEMP 36.3–36.9; O2SAT 92–99
[2017-08-12] MEDS: Nitroglycerin Oint 1 INCH PACKET 2 INCH TRANSDERM. ×2 (00:42→05:54)
[2017-08-12 05:57] LABS: International Normalized Ratio 2.6; Prothrombin Time (Protime)PT. 27.7 SECONDS (11.7-14.9)
[2017-08-12 06:13] LABS: Anion Gap 3 (5-15); BUN 30 mg/dL (7-18); BUN/Creat Ratio 18.3 RATIO (10-20); Calcium,Total 8.3 mg/dL (8.5-10.1); Chloride 112 mmol/L (98-107); Creatinine, Serum 1.64 mg/dL (0.55-1.02); EST Glomerular Filtration Rate 32 mL/min (>60); Est Glom Filt Rate - Afr Amer 39 mL/min (>60); Estimated Creatinine Clearance 23.23 ml/min; Glucose 152 mg/dL (74-106); Potassium 4.6 mmol/L (3.5-5.1); Sodium Level 148 mmol/L (136-145)
[2017-08-12] MEDS: Nystatin Powder 15gm Bottle 1 APPLIC TOPICAL ×3 (06:50→23:10)
--- NOTE | 2017-08-12 06:52 | PN.CARD_ITS ---
Subjectve: Patient seen and evaluated and appears to be breathing much better today Objective: Vital Signs Temp Pulse Resp BP Pulse Ox 98.5 F 74 18 108/60 94 08/12/17 05:53 08/12/17 05:54 08/12/17 05:53 08/12/17 05:54 08/12/17 05:53 Oxygen Flow Rate (L/min) 4 Oxygen Delivery Method Nasal Cannula Weight: 196 lb 6.91 oz Body Mass Index (BMI) 33.7 Intake and Output for Last 24 Hours 08/10/17 08/11/17 08/12/17 23:59 23:59 23:59 Intake Total 1198.8 / 1198.8 Output Total 4150 / 4150 200 / 200 Balance -2951.2 / -2951.2 -200 / -200 General: Awake, Alert, Oriented x 3 HEENT: PERRL, EOMI, Sclera Non Icteric Neck: Supple, Good ROM, No Lymph Node Enlargement Lungs: Clear to auscultation Cardiovascular: Irregular Rhythm, Normal S1, Normal S2, No Murmurs, No Rubs, No Gallops Vascular: No Carotid Bruits, Normal Femoral Pulses, Normal Radial Pulses, Normal Dorsalis Pedal Pulse, Normal Posterior Tibial Pulses Abdomen: Bowel Sounds Present, Soft, Non Tender, No HSM, No Organomegaly Extremities: No Cyanosis, No Clubbing, No edema Neurological: No Focal Motor or Sensory Deficit 08/11/17 06:20: Sodium 148 H, Potassium 4.1, Chloride 114 H, Carbon Dioxide 29.0 , Anion Gap 5, BUN 22 H, Creatinine 1.44 H, Est GFR (MDRD) Af Amer 45 L, Est GFR (MDRD) Non-Af 37 L, BUN/Creatinine Ratio 15.3, Glucose 72 L, Calcium 8.6, Troponin I 0.04, Triglycerides 102, Cholesterol 70, LDL Cholesterol 21, VLDL Cholesterol 20, HDL Cholesterol 29 L 08/11/17 12:30: Troponin I 0.03 08/12/17 05:05: Sodium 148 H, Potassium 4.6, Chloride 112 H, Carbon Dioxide 33.0 H, Anion Gap 3 L, BUN 30 H, Creatinine 1.64 H, Est GFR (MDRD) Af Amer 39 L , Est GFR (MDRD) Non-Af 32 L, BUN/Creatinine Ratio 18.3, Glucose 152 H, Calcium 8.3 L 08/12/17 05:05: PT 27.7 H, INR 2.6 Rhythm: EKG: ECHO: Stress Test: Cardiac Cath: PCI: CT Surgery: Holter monitor: EPS: PPM: CXR: Chest CT Scan: Medical Necessity - Tobacco Use Smoking Status: Never smoker Assessment/Plan 1. Congestive heart failure-acute diastolic She presents with shortness of breath pedal edema and has x-ray findings suggestive of congestive heart failure the etiology of the above is unclear at this time but likely secondary to atrial fibrillation which appears to be paroxysmal and new at this time. Ejection fraction by echocardiographic evaluation yesterday appeared to be low normal with segmental wall motion abnormalities. This appears to be unchanged from the previous echocardiogram.. My recommendation would be to continue her on the twice a day oral Lasix. At this time I do not think that we need to pursue further evaluation. 2. Coronary artery disease. Patient has evidence of known coronary artery disease but has not had any angina at this time there are no EKG changes and troponin levels are not significantly abnormal . We will continue to monitor the above on the medical therapy and see how she does. 3. Hypertension. Patient has known history of hypertension and at this particular time her blood pressure is fairly well-controlled so we will continue medical therapy with no major changes. Depending on the findings further recommendations will then be made. 4. Paroxysmal atrial fibrillation. Patient has evidence of paroxysmal atrial fibrillation and will remain anticoagulated for now. The cardiogram demonstrated overall low normal left ventricular systolic function. She appears to be asymptomatic with regard to the above though however. Thank you for allowing me to participate in the care of your patient. Please don't hesitate to call if any issues arise
[2017-08-12] MEDS: Ipratropium/Albuterol Sulfate 3 ML AMPUL.NEB INHALATION ×4 (06:56→18:52)
[2017-08-12 07:00] LABS: Bedside Glucose 167 mg/dL (70-110)
[2017-08-12] MEDS: Glucerna Shake 120 ML LIQUID PO ×3 (08:00→16:45)
[2017-08-12] MEDS: 0.9% NaCl Peripheral Flush Adult/Peds IV (10:24)
[2017-08-12] MEDS: Metoprolol Tartrate 25 MG Tablet 12.5 MG PO ×2 (10:25→23:09)
[2017-08-12] MEDS: Pantoprazole Sodium 40 MG Tablet PO (10:25)
[2017-08-12] MEDS: hydrALAZINE 50 MG Tablet PO ×4 (10:27→23:08)
[2017-08-12] MEDS: guaiFENesin 1,200 MG Tablet 1200 MG PO ×2 (10:27→23:10)
[2017-08-12] MEDS: Furosemide 40 MG/4 ML Vial IV (10:44)
[2017-08-12 11:21] LABS: Bedside Glucose 319 mg/dL (70-110)
--- NOTE | 2017-08-12 12:01 | PN_ITS ---
Patient Problems: Active and Suspected Problems Acute respiratory failure with hypoxia (Acute) Acute on chronic combined systolic and diastolic heart failure (Acute) Subjective: Breathing better. Weaned down to 1 liter/NC. Vitals/I&O's: Vital Signs Temp Pulse Resp BP Pulse Ox 36.3 C L 77 16 151/54 H 92 08/12/17 09:48 08/12/17 10:39 08/12/17 10:39 08/12/17 09:48 08/12/17 10:39 Oxygen Flow Rate (L/min) 2 Oxygen Delivery Method Nasal Cannula Weight: 89.1 kg Body Mass Index (BMI) 33.7 Intake and Output for Last 24 Hours 08/10/17 08/11/17 08/12/17 23:59 23:59 23:59 Intake Total 1198.8 / 1198.8 Output Total 4150 / 4150 200 / 200 Balance -2951.2 / -2951.2 -200 / -200 General: Alert, Cooperative, No apparent distress HEENT: Atraumatic, Normocephalic Neck: No JVD, Thyroid Normal Size and Texture Lungs: Clear to auscultation, Normal air movement, No rhonchi, No wheeze Cardiovascular: Regular rate, Regular Rhythm, Normal S1, Normal S2 Abdomen: Bowel Sounds Present, Soft, Non Tender, Non-Distended, No Hepato- splenomegaly Psych/Mental Status: Normal Affect, Appropriate Microbiology Past 72 Hours 08/11/17 03:25 Mucosa - Nose Influenza Types A,B Direct FA (SIXTO) - Final Laboratory Results 08/11/17 12:30: Troponin I 0.03 08/11/17 16:04: POC Glucose 286 H 08/11/17 21:43: POC Glucose 188 H 08/12/17 05:05: Sodium 148 H, Potassium 4.6, Chloride 112 H, Carbon Dioxide 33.0 H, Anion Gap 3 L, BUN 30 H, Creatinine 1.64 H, Estim Creat Clear Calc 23.23 , Est GFR (MDRD) Af Amer 39 L, Est GFR (MDRD) Non-Af 32 L, BUN/Creatinine Ratio 18.3, Glucose 152 H, Calcium 8.3 L 08/12/17 05:05: PT 27.7 H, INR 2.6 08/12/17 06:48: POC Glucose 167 H 08/12/17 11:08: POC Glucose 319 H Current Medications Acetaminophen (Tylenol) 650 mg PO Q6H PRN PRN PRN Reason: Mild Pain (scale 0-3)/T>100.7 Al Hydroxide/Mg Hydroxide (Mylanta Ii) 30 ml PO Q6H PRN PRN PRN Reason: Gastric Burning Albuterol Sulfate (Ventolin Aerosols) 2.5 mg INHALATION Q2H PRN PRN PRN Reason: SHORTNESS OF BREATH Albuterol/Ipratropium (Duoneb) 3 ml INHALATION Q4HWA.RT [facility] Last Admin: 08/12/17 10:39 Dose: 3 ml Atorvastatin Calcium (Lipitor) 40 mg PO QHS [facility] Last Admin: 08/11/17 21:48 Dose: 40 mg Bisacodyl (Dulcolax) 10 mg RECTAL DAILY PRN PRN PRN Reason: Constipation Dextrose (D50w Syringe) 0 gm IV X1 PRN; Protocol PRN Reason: Hypoglycemia Docusate Sodium (Colace) 200 mg PO BID PRN PRN PRN Reason: Constipation Furosemide (Lasix) 40 mg IV BID@1000,1800 [facility] Last Admin: 08/12/17 10:44 Dose: 40 mg Glucagon () 1 mg IM .X1 PRN PRN Reason: Hypoglycemia Guaifenesin (Mucinex) 1,200 mg PO BID [facility] Last Admin: 08/12/17 10:27 Dose: 1,200 mg Hydralazine HCl (Apresoline) 50 mg PO 4X/DAY [facility] Last Admin: 08/12/17 10:27 Dose: 50 mg Insulin Aspart (Novolog Flexpen (Bkc)) 0 units SC TIDAC [facility] PRN Reason: Protocol Last Admin: 08/12/17 11:13 Dose: 5 u Insulin Detemir (Levemir (Bkc)) 30 units SC BID [facility] Last Admin: 08/12/17 10:26 Dose: 30 u Metoprolol Tartrate (Lopressor (Beta Rah)) 12.5 mg PO BID [facility] Last Admin: 08/12/17 10:25 Dose: 12.5 mg Mirtazapine (Remeron) 15 mg PO QHS [facility] Last Admin: 08/11/17 21:49 Dose: 15 mg Morphine Sulfate () 1 - 2 mg IV Q4H PRN PRN PRN Reason: SEVERE PAIN (6-10/10) Nutritional Formula (Lactose Free) (Glucerna Shake) 120 ml PO TIDCM [facility] Last Admin: 08/12/17 11:16 Dose: 120 ml Nystatin (Mycostatin Powder) 1 applic TOPICAL BID [facility] PRN Reason: Protocol Last Admin: 08/12/17 10:29 Dose: 1 applic Ondansetron HCl (Zofran) 4 mg IV Q8H PRN PRN PRN Reason: Nausea Oxycodone HCl (Oxyir) 5 mg PO Q4H PRN PRN PRN Reason: Moderate Pain (pain scale 4-5) Pantoprazole Sodium (Protonix) 40 mg PO DAILY [facility] Last Admin: 08/12/17 10:25 Dose: 40 mg Polyethylene Glycol (Miralax) 17 gm PO DAILY [facility] Last Admin: 08/11/17 10:30 Dose: 17 gm Sodium Chloride () 5 - 30 ml IV UD PRN PRN Reason: SALINE FLUSH Last Admin: 08/12/17 10:24 Dose: 10 ml Warfarin Sodium (Coumadin (Pbkc)) 3 mg PO TuTh@1700 [facility] Warfarin Sodium (Coumadin (Pbkc)) 6 mg PO SuMoWeFrSa@1700 [facility] Last Admin: 08/11/17 17:18 Dose: 6 mg Medical Necessity - Tobacco Use Smoking Status: Never smoker Assessment/Plan Active and Suspected Problems Acute respiratory failure with hypoxia (Acute) Acute on chronic combined systolic and diastolic heart failure (Acute) 1. acute HFpEF * EF 50%. * complicated by mild pulm HTN * improved * weight down to 89.1, from 93.9kg * change lasix to oral (40 BID) * No ACEi nor ARB, given CKD. Instead, continue hydralazine and Imdur 2. acute hypoxic respiratory failure * secondary to #1 * doubt COPD exacerbation and pneumonia * DC steroids and abx. 3. CKD 3 * stable * avoid nephrotoxic agents 4. pAfib * on coumadin * metoprolol tartrate 5. DVT proph: on coumadin 6. DM2 * fair control * continue levemir and SSI * stop metformin in light of CHF Code Visit Inpatient E&M: 03867 Subs Hosp L2
--- NOTE | 2017-08-12 13:32 | CASEMGMT ---
SEDA spoke with patient and her granddaughter, Razia, and the plan is home with resumption of Passport services. Razia was a little upset and confused as she said she spoke with patient's RN and she told her patient is going to a [facility]. SEDA told her this is not accurate as that is a decision SEDA , LOC, patient and family make. She thanked SEDA for the clarification. Plan: Home with resumption of Passport services. Nikki LEDESMA MSW
[2017-08-12] MEDS: Polyethylene Glycol 3350 17 GM PACKET PO (13:50)
[2017-08-12 15:40] LABS: Bedside Glucose 158 mg/dL (70-110)
[2017-08-12] MEDS: Furosemide 40 MG Tablet PO (17:52)
[2017-08-12] MEDS: oxyCODONE 5 MG Tablet PO (19:55)
[2017-08-12] MEDS: Albuterol 2.5 MG/3 ML VIAL.NEB. INHALATION (20:57)
[2017-08-12 21:50] LABS: Magnesium 1.8 mg/dL (1.6-2.6)
[2017-08-12] MEDS: Atorvastatin Calcium 40 MG Tablet PO (23:09)
[2017-08-12] MEDS: Mirtazapine 15 MG Tablet PO (23:10)
[2017-08-12 23:26] LABS: Bedside Glucose 220 mg/dL (70-110)
[2017-08-13] VITALS (13 sets, daily range): BP systolic 138–143; BP diastolic 49–69; PULSE 66–94; RESP 17–20; TEMP 36.2–37.2; O2SAT 87–95
--- NOTE | 2017-08-13 00:42 | CPS ---
pt refused bipap
[2017-08-13 06:04] LABS: International Normalized Ratio 3.1
[2017-08-13 06:23] LABS: Anion Gap 6 (5-15); BUN 35 mg/dL (7-18); BUN/Creat Ratio 24.3 RATIO (10-20); Calcium,Total 8.5 mg/dL (8.5-10.1); Chloride 110 mmol/L (98-107); Creatinine, Serum 1.44 mg/dL (0.55-1.02); EST Glomerular Filtration Rate 37 mL/min (>60); Est Glom Filt Rate - Afr Amer 45 mL/min (>60); Estimated Creatinine Clearance 26.46 ml/min; Glucose 149 mg/dL (74-106); Potassium 4.9 mmol/L (3.5-5.1); Sodium Level 145 mmol/L (136-145)
[2017-08-13] MEDS: Ipratropium/Albuterol Sulfate 3 ML AMPUL.NEB INHALATION ×2 (06:50→10:51)
[2017-08-13 06:56] LABS: Bedside Glucose 139 mg/dL (70-110)
[2017-08-13] MEDS: Glucerna Shake 120 ML LIQUID PO ×3 (09:32→16:10)
[2017-08-13] MEDS: Pantoprazole Sodium 40 MG Tablet PO (09:33)
[2017-08-13] MEDS: hydrALAZINE 50 MG Tablet PO ×3 (09:33→16:10)
[2017-08-13] MEDS: Furosemide 40 MG Tablet PO ×2 (09:33→16:10)
[2017-08-13] MEDS: Nystatin Powder 15gm Bottle 1 APPLIC TOPICAL (09:34)
[2017-08-13] MEDS: Polyethylene Glycol 3350 17 GM PACKET PO (09:34)
[2017-08-13] MEDS: Metoprolol Tartrate 25 MG Tablet 12.5 MG PO (09:35)
[2017-08-13] MEDS: guaiFENesin 1,200 MG Tablet 1200 MG PO (09:35)
[2017-08-13] MEDS: Acetaminophen 325 MG Tablet 650 MG PO (09:53)
--- NOTE | 2017-08-13 11:29 | CASEMGMT ---
Addendum entered by Haritha Lassiter 08/13/17 13:13: SW asked RN to call granddaughter when pt is ready for discharge. ANNY Laguerre, RESISTOR TESTING MACHINE OPERATOR Original Note: Pt is ready for discharge today, SW called granddaughter Razia, she just asked that someone call her when pt is ready to be discharged so she can be home. SEDA called Samaria Phillips, pt's Passport worker, to let her know pt is going home today, she is on vacation, spoke to the covering special education case manager and let Jazmin know--she will restart pt's services. SW will call granddaughter or ask RN to call granddaughter once pt is fully ready for discharge. ANNY Laguerre, RESISTOR TESTING MACHINE OPERATOR
[2017-08-13 11:45] LABS: Bedside Glucose 273 mg/dL (70-110)
--- NOTE | 2017-08-13 12:38 | PCM.PN.HOSP ---
Patient Problems: Active and Suspected Problems Acute on chronic combined systolic and diastolic heart failure (Acute) Subjective: Feeling good. Breathing well, with oxygen. Vitals/I&O's: Vital Signs Temp Pulse Resp BP Pulse Ox 36.6 C 66 18 143/67 H 90 08/13/17 09:30 08/13/17 10:51 08/13/17 10:51 08/13/17 09:35 08/13/17 11:42 Oxygen Flow Rate (L/min) [ 2 AMBULATION with Oxygen] Oxygen Flow Rate (L/min) 2 Oxygen Delivery Method Nasal Cannula Weight: 87 kg Body Mass Index (BMI) 33.7 Intake and Output for Last 24 Hours 08/11/17 08/12/17 08/13/17 23:59 23:59 23:59 Intake Total 1198.8 / 1198.8 850 / 850 Output Total 4150 / 4150 1200 / 1200 Balance -2951.2 / -2951.2 -350 / -350 General: Alert, Cooperative, No apparent distress HEENT: Atraumatic, Normocephalic Neck: No Nodes, Thyroid Normal Size and Texture Lungs: Clear to auscultation, Normal air movement, No rhonchi, No wheeze Cardiovascular: Regular rate, Regular Rhythm, Normal S1, Normal S2, No murmurs Abdomen: Bowel Sounds Present, Soft, Non Tender, Non-Distended, No Hepato-splenomegaly Extremities: No edema, No Calf Tenderness Psych/Mental Status: Normal Affect, Appropriate Microbiology Past 72 Hours 08/11/17 03:25 Mucosa - Nose Influenza Types A,B Direct FA ([facility]) - Final Laboratory Results 08/12/17 05:05: Magnesium 1.8 08/12/17 15:36: POC Glucose 158 H 08/12/17 23:00: POC Glucose 220 H 08/13/17 05:10: PT 32.0 H, INR 3.1 08/13/17 05:10: Sodium 145, Potassium 4.9, Chloride 110 H, Carbon Dioxide 29.0, Anion Gap 6, BUN 35 H, Creatinine 1.44 H, Estim Creat Clear Calc 26.46, Est GFR (MDRD) Af Amer 45 L, Est GFR (MDRD) Non-Af 37 L, BUN/Creatinine Ratio 24.3 H, Glucose 149 H, Calcium 8.5 08/13/17 06:51: POC Glucose 139 H 08/13/17 11:35: POC Glucose 273 H Current Medications Acetaminophen (Tylenol) 650 mg PO Q6H PRN PRN PRN Reason: Mild Pain (scale 0-3)/T>100.7 Last Admin: 08/13/17 09:53 Dose: 650 mg Al Hydroxide/Mg Hydroxide (Mylanta Ii) 30 ml PO Q6H PRN PRN PRN Reason: Gastric Burning Albuterol Sulfate (Ventolin Aerosols) 2.5 mg INHALATION Q2H PRN PRN PRN Reason: SHORTNESS OF BREATH Last Admin: 08/12/17 20:57 Dose: 2.5 mg Albuterol/Ipratropium (Duoneb) 3 ml INHALATION Q4HWA.RT [facility] Last Admin: 08/13/17 10:51 Dose: 3 ml Atorvastatin Calcium (Lipitor) 40 mg PO QHS [facility] Last Admin: 08/12/17 23:09 Dose: 40 mg Bisacodyl (Dulcolax) 10 mg RECTAL DAILY PRN PRN PRN Reason: Constipation Dextrose (D50w Syringe) 0 gm IV X1 PRN; Protocol PRN Reason: Hypoglycemia Docusate Sodium (Colace) 200 mg PO BID PRN PRN PRN Reason: Constipation Furosemide (Lasix) 40 mg PO BID@1000,1800 [facility] Last Admin: 08/13/17 09:33 Dose: 40 mg Glucagon () 1 mg IM .X1 PRN PRN Reason: Hypoglycemia Guaifenesin (Mucinex) 1,200 mg PO BID [facility] Last Admin: 08/13/17 09:35 Dose: 1,200 mg Hydralazine HCl (Apresoline) 50 mg PO 4X/DAY [facility] Last Admin: 08/13/17 09:33 Dose: 50 mg Insulin Aspart (Novolog Flexpen (Bkc)) 0 units SC TIDAC [facility] PRN Reason: Protocol Last Admin: 08/13/17 11:38 Dose: 4 u Insulin Detemir (Levemir (Bkc)) 30 units SC BID [facility] Last Admin: 08/13/17 09:37 Dose: 30 u Metoprolol Tartrate (Lopressor (Beta Rah)) 12.5 mg PO BID [facility] Last Admin: 08/13/17 09:35 Dose: 12.5 mg Mirtazapine (Remeron) 15 mg PO QHS [facility] Last Admin: 08/12/17 23:10 Dose: 15 mg Morphine Sulfate () 1 - 2 mg IV Q4H PRN PRN PRN Reason: SEVERE PAIN (6-10/10) Nutritional Formula (Lactose Free) (Glucerna Shake) 120 ml PO TIDCM [facility] Last Admin: 08/13/17 11:41 Dose: 120 ml Nystatin (Mycostatin Powder) 1 applic TOPICAL BID K[facility] PRN Reason: Protocol Last Admin: 08/13/17 09:34 Dose: 1 applic Ondansetron HCl (Zofran) 4 mg IV Q8H PRN PRN PRN Reason: Nausea Oxycodone HCl (Oxyir) 5 mg PO Q4H PRN PRN PRN Reason: Moderate Pain (pain scale 4-5) Last Admin: 08/12/17 19:55 Dose: 5 mg Pantoprazole Sodium (Protonix) 40 mg PO DAILY [facility] Last Admin: 08/13/17 09:33 Dose: 40 mg Polyethylene Glycol (Miralax) 17 gm PO DAILY [facility] Last Admin: 08/13/17 09:34 Dose: 17 gm Sodium Chloride () 5 - 30 ml IV UD PRN PRN Reason: SALINE FLUSH Last Admin: 08/12/17 10:24 Dose: 10 ml Warfarin Sodium (Coumadin (Pbkc)) 3 mg PO TuTh@1700 [facility] Last Admin: 08/12/17 16:46 Dose: 3 mg Warfarin Sodium (Coumadin (Pbkc)) 6 mg PO SuMoWeFrSa@1700 [facility] Last Admin: 08/11/17 17:18 Dose: 6 mg Medical Necessity - Tobacco Use Smoking Status: Never smoker Assessment/Plan Active and Suspected Problems Acute on chronic combined systolic and diastolic heart failure (Acute) 1. acute HFpEF EF 50%. complicated by mild pulm HTN improved weight down to 89.1, from 93.9kg change lasix to oral (40 BID) No ACEi nor ARB, given CKD. Instead, continue hydralazine and Imdur 2. acute hypoxic respiratory failure secondary to #1 doubt COPD exacerbation and pneumonia DC steroids and abx. 3. CKD 3 stable avoid nephrotoxic agents 4. pAfib on coumadin metoprolol tartrate 5. DVT proph: on coumadin 6. DM2 fair control continue levemir and SSI stop metformin in light of CHF 7. Disposition: Home with HHC. Will require oxygen at home as pt dropped to 87% on room air with ambulation (90% at rest).
--- NOTE | 2017-08-13 12:41 | PN_ITS ---
Patient Problems: Active and Suspected Problems Acute on chronic combined systolic and diastolic heart failure (Acute) Subjective: Feeling good. Breathing well, with oxygen. Vitals/I&O's: Vital Signs Temp Pulse Resp BP Pulse Ox 36.6 C 66 18 143/67 H 90 08/13/17 09:30 08/13/17 10:51 08/13/17 10:51 08/13/17 09:35 08/13/17 11:42 Oxygen Flow Rate (L/min) [ 2 AMBULATION with Oxygen] Oxygen Flow Rate (L/min) 2 Oxygen Delivery Method Nasal Cannula Weight: 87 kg Body Mass Index (BMI) 33.7 Intake and Output for Last 24 Hours 08/11/17 08/12/17 08/13/17 23:59 23:59 23:59 Intake Total 1198.8 / 1198.8 850 / 850 Output Total 4150 / 4150 1200 / 1200 Balance -2951.2 / -2951.2 -350 / -350 General: Alert, Cooperative, No apparent distress HEENT: Atraumatic, Normocephalic Neck: No Nodes, Thyroid Normal Size and Texture Lungs: Clear to auscultation, Normal air movement, No rhonchi, No wheeze Cardiovascular: Regular rate, Regular Rhythm, Normal S1, Normal S2, No murmurs Abdomen: Bowel Sounds Present, Soft, Non Tender, Non-Distended, No Hepato- splenomegaly Extremities: No edema, No Calf Tenderness Psych/Mental Status: Normal Affect, Appropriate Microbiology Past 72 Hours 08/11/17 03:25 Mucosa - Nose Influenza Types A,B Direct FA ([facility]) - Final Laboratory Results 08/12/17 05:05: Magnesium 1.8 08/12/17 15:36: POC Glucose 158 H 08/12/17 23:00: POC Glucose 220 H 08/13/17 05:10: PT 32.0 H, INR 3.1 08/13/17 05:10: Sodium 145, Potassium 4.9, Chloride 110 H, Carbon Dioxide 29.0, Anion Gap 6, BUN 35 H, Creatinine 1.44 H, Estim Creat Clear Calc 26.46, Est GFR (MDRD) Af Amer 45 L, Est GFR (MDRD) Non-Af 37 L, BUN/Creatinine Ratio 24.3 H, Glucose 149 H, Calcium 8.5 08/13/17 06:51: POC Glucose 139 H 08/13/17 11:35: POC Glucose 273 H Current Medications Acetaminophen (Tylenol) 650 mg PO Q6H PRN PRN PRN Reason: Mild Pain (scale 0-3)/T>100.7 Last Admin: 08/13/17 09:53 Dose: 650 mg Al Hydroxide/Mg Hydroxide (Mylanta Ii) 30 ml PO Q6H PRN PRN PRN Reason: Gastric Burning Albuterol Sulfate (Ventolin Aerosols) 2.5 mg INHALATION Q2H PRN PRN PRN Reason: SHORTNESS OF BREATH Last Admin: 08/12/17 20:57 Dose: 2.5 mg Albuterol/Ipratropium (Duoneb) 3 ml INHALATION Q4HWA.RT [facility] Last Admin: 08/13/17 10:51 Dose: 3 ml Atorvastatin Calcium (Lipitor) 40 mg PO QHS [facility] Last Admin: 08/12/17 23:09 Dose: 40 mg Bisacodyl (Dulcolax) 10 mg RECTAL DAILY PRN PRN PRN Reason: Constipation Dextrose (D50w Syringe) 0 gm IV X1 PRN; Protocol PRN Reason: Hypoglycemia Docusate Sodium (Colace) 200 mg PO BID PRN PRN PRN Reason: Constipation Furosemide (Lasix) 40 mg PO BID@1000,1800 [facility] Last Admin: 08/13/17 09:33 Dose: 40 mg Glucagon () 1 mg IM .X1 PRN PRN Reason: Hypoglycemia Guaifenesin (Mucinex) 1,200 mg PO BID [facility] Last Admin: 08/13/17 09:35 Dose: 1,200 mg Hydralazine HCl (Apresoline) 50 mg PO 4X/DAY [facility] Last Admin: 08/13/17 09:33 Dose: 50 mg Insulin Aspart (Novolog Flexpen (Bkc)) 0 units SC TIDAC [facility] PRN Reason: Protocol Last Admin: 08/13/17 11:38 Dose: 4 u Insulin Detemir (Levemir (Bkc)) 30 units SC BID [facility] Last Admin: 08/13/17 09:37 Dose: 30 u Metoprolol Tartrate (Lopressor (Beta Rah)) 12.5 mg PO BID [facility] Last Admin: 08/13/17 09:35 Dose: 12.5 mg Mirtazapine (Remeron) 15 mg PO QHS [facility] Last Admin: 08/12/17 23:10 Dose: 15 mg Morphine Sulfate () 1 - 2 mg IV Q4H PRN PRN PRN Reason: SEVERE PAIN (6-10) Nutritional Formula (Lactose Free) (Glucerna Shake) 120 ml PO TIDCM [facility] Last Admin: 08/13/17 11:41 Dose: 120 ml Nystatin (Mycostatin Powder) 1 applic TOPICAL BID [facility] PRN Reason: Protocol Last Admin: 08/13/17 09:34 Dose: 1 applic Ondansetron HCl (Zofran) 4 mg IV Q8H PRN PRN PRN Reason: Nausea Oxycodone HCl (Oxyir) 5 mg PO Q4H PRN PRN PRN Reason: Moderate Pain (pain scale 4-5) Last Admin: 08/12/17 19:55 Dose: 5 mg Pantoprazole Sodium (Protonix) 40 mg PO DAILY [facility] Last Admin: 08/13/17 09:33 Dose: 40 mg Polyethylene Glycol (Miralax) 17 gm PO DAILY [facility] Last Admin: 08/13/17 09:34 Dose: 17 gm Sodium Chloride () 5 - 30 ml IV UD PRN PRN Reason: SALINE FLUSH Last Admin: 08/12/17 10:24 Dose: 10 ml Warfarin Sodium (Coumadin (Pbkc)) 3 mg PO TuTh@1700 [facility] Last Admin: 08/12/17 16:46 Dose: 3 mg Warfarin Sodium (Coumadin (Pbkc)) 6 mg PO SuMoWeFrSa@1700 [facility] Last Admin: 08/11/17 17:18 Dose: 6 mg Medical Necessity - Tobacco Use Smoking Status: Never smoker Assessment/Plan Active and Suspected Problems Acute on chronic combined systolic and diastolic heart failure (Acute) 1. acute HFpEF * EF 50%. * complicated by mild pulm HTN * improved * weight down to 89.1, from 93.9kg * change lasix to oral (40 BID) * No ACEi nor ARB, given CKD. Instead, continue hydralazine and Imdur 2. acute hypoxic respiratory failure * secondary to #1 * doubt COPD exacerbation and pneumonia * DC steroids and abx. 3. CKD 3 * stable * avoid nephrotoxic agents 4. pAfib * on coumadin * metoprolol tartrate 5. DVT proph: on coumadin 6. DM2 * fair control * continue levemir and SSI * stop metformin in light of CHF 7. Disposition: Home with HHC. Will require oxygen at home as pt dropped to 87% on room air with ambulation (90% at rest).
--- NOTE | 2017-08-13 12:50 | PCM.DC ---
- Discharge Diagnoses Current Active Problems: Current Active and Chronic Problems Acute on chronic combined systolic and diastolic heart failure (Acute) You will use the following diet at home:: Calorie/Carbohydrate Controlled (specify 1200, 1400, etc) - 1800, Cardiac Your food should be the consistency of: Regular Your liquids should be the consistency of: Regular/Thin Discharge Activity: Return to Normal Activity Weight Bearing Status: Weight bearing as tolerated Call your doctor if you observe: Fever of 101 or Higher, Shortness of breath, Chest pain Allergies/Adverse Reactions: Allergies LEANDER Inhibitors Allergy (Verified 07/17/16 16:14) Unknown Medications to take at Discharge Atorvastatin Calcium [Lipitor] 40 mg PO QHS 04/19/17 Calcium Carbonate/Vitamin D3 [Calcium 500-Vit D3 600 Tablet] 1 each PO BID 04/19/17 Hydralazine HCl 50 mg PO 4X/DAY 04/19/17 Insulin Detemir [Levemir] 30 unit SQ BID 04/19/17 Isosorbide Mononitrate [Imdur] 30 mg PO DAILY 04/19/17 Mirtazapine [Remeron] 15 mg PO QHS 04/19/17 Multivitamin [Daily Multiple Vitamin] 1 each PO DAILY 04/19/17 Omeprazole 40 mg PO DAILY 04/19/17 Warfarin [Coumadin] 6 mg PO SUMOWEFRSA 04/19/17 Warfarin [Coumadin] 3 mg PO TUTH 08/10/17 Acetaminophen [Tylenol Tablet] 650 mg PO Q6H PRN PRN tablet 08/13/17 Furosemide [Lasix] 40 mg PO BID@1000,1800 #60 tab 08/13/17 Metoprolol Tartrate [Lopressor (beta joan)] 12.5 mg PO BID #60 tab 08/13/17 The following prescriptions were given: Furosemide [Lasix] 40 mg PO BID@1000,1800 #60 tab Metoprolol Tartrate [Lopressor (beta joan)] 12.5 mg PO BID #60 tab Primary Care Physician: Eliot Loja MD [Primary Care Provider] - Within 2 Weeks Please Follow Up With: Ángel Michelle MD When: 2-4 weeks Proposed Discharge Date: 08/13/17
--- NOTE | 2017-08-13 12:54 | PCM.DC.SUM ---
Discharge Date and Diagnosis - Problem List Patient Problems: Active and Suspected Problems Acute on chronic combined systolic and diastolic heart failure (Acute) Date of Admission: 08/10/17 Date of Discharge: 08/13/17 - Primary Discharge Diagnosis Active and Suspected Problems Acute on chronic combined systolic and diastolic heart failure (Acute) - Secondary Discharge Diagnosis Chronic Problems Gastric ulcer (Chronic) Colon polyps (Chronic) Diabetes (Chronic) Dizziness (Chronic) Chronic coronary artery disease (Chronic) Hospital Course and Treatment Imaging Results: Clinical Impression(s) from Imaging Studies Chest X-Ray 08/10/17 23:00 IMPRESSION: Moderate to severe congestive failure with small bilateral effusions Electronically Signed: Curt Rowe MD at 23:23 EDT , Service support , Chest X-Ray 08/11/17 11:09 IMPRESSION: No interval change Electronically Signed: Marito Molina MD at 11:36 EDT , Service support , Operations: None Procedures: 2-D Echocardiogram Summary of Care Provided: The patient is a 82 year old F Polo with shortness of breath. Patient was found to be in CHF with x-ray consistent with CHF as well as an elevated BNP. Patient was started on strip and did improve diuresis. The following day, patient was transitioned over to bolus Lasix. Patient continued to improve. On the first is that the patient's creatinine was going up so the Lasix then changed over to oral Lasix and patient has continued to improve. Patient did have some hypoxic respiratory failure when she arrived due to the heart failure and was put temporarily on the BiPAP. Patient essentially improved. Patient was ambulating did drop to 87% on room air so therefore will require home oxygen upon discharge. 1. acute HFpEF EF 50%. complicated by mild pulm HTN improved weight down to 89.1, from 93.9kg change lasix to oral (40 BID) No ACEi nor ARB, given CKD. Instead, continue hydralazine and Imdur 2. acute hypoxic respiratory failure secondary to #1 doubt COPD exacerbation and pneumonia DC steroids and abx. 3. CKD 3 stable avoid nephrotoxic agents 4. pAfib on coumadin metoprolol tartrate 5. DVT proph: on coumadin 6. DM2 fair control continue levemir and SSI stop metformin in light of CHF 7. Disposition: Home with [facility]. Will require oxygen at home as pt dropped to 87% on room air with ambulation (90% at rest).[] Discharge Diet: Low fat/ Low Cholesterol - 1800 kcal/day, 6 Cup Fluid Restriction, 2000 mg Sodium Diet Discharge Activity: Return to Normal Activity Weight Bearing Status: Weight bearing as tolerated Call your doctor if you observe: Fever of 101 or Higher, Shortness of breath, Chest pain Home Medications: Medications to take at Discharge Atorvastatin Calcium [Lipitor] 40 mg PO QHS 04/19/17 Calcium Carbonate/Vitamin D3 [Calcium 500-Vit D3 600 Tablet] 1 each PO BID 04/19/17 Hydralazine HCl 50 mg PO 4X/DAY 04/19/17 Insulin Detemir [Levemir] 30 unit SQ BID 04/19/17 Isosorbide Mononitrate [Imdur] 30 mg PO DAILY 04/19/17 Mirtazapine [Remeron] 15 mg PO QHS 04/19/17 Multivitamin [Daily Multiple Vitamin] 1 each PO DAILY 04/19/17 Omeprazole 40 mg PO DAILY 04/19/17 Warfarin [Coumadin] 6 mg PO SUMOWEFRSA 04/19/17 Warfarin [Coumadin] 3 mg PO TUTH 08/10/17 Acetaminophen [Tylenol Tablet] 650 mg PO Q6H PRN PRN tablet 08/13/17 Furosemide [Lasix] 40 mg PO BID@1000,1800 #60 tab 08/13/17 Metoprolol Tartrate [Lopressor (beta joan)] 12.5 mg PO BID #60 tab 08/13/17 Following Prescrptions Were Given to Patient: Furosemide [Lasix] 40 mg PO BID@1000,1800 #60 tab Metoprolol Tartrate [Lopressor (beta joan)] 12.5 mg PO BID #60 tab Primary Care Physician: Eliot Loja MD [Primary Care Provider] - Within 2 Weeks Please Follow Up With: Ángel Michelle MD When: 2-4 weeks Disposition: Home with Home Health Minutes spent on discharge:: 32 Patient Condition:: Fair Medical Necessity - Tobacco Use Smoking Status: Never smoker Meaningful Use Info Meaningful Use Diagnoses (Choose all that apply): CHF - CHF LEANDER/ARB ordered at discharge?: No Reason LEANDER/ARB not ordered?: Worsening renal disease Documented LVEF (%): 50 Code Visit Inpatient E&M: [id number] Disch Hosp
--- NOTE | 2017-08-13 12:57 | DS.PCM_ITS ---
Discharge Date and Diagnosis - Problem List Patient Problems: Active and Suspected Problems Acute on chronic combined systolic and diastolic heart failure (Acute) Date of Admission: 08/10/17 Date of Discharge: 08/13/17 - Primary Discharge Diagnosis Active and Suspected Problems Acute on chronic combined systolic and diastolic heart failure (Acute) - Secondary Discharge Diagnosis Chronic Problems Gastric ulcer (Chronic) Colon polyps (Chronic) Diabetes (Chronic) Dizziness (Chronic) Chronic coronary artery disease (Chronic) Hospital Course and Treatment Imaging Results: Clinical Impression(s) from Imaging Studies Chest X-Ray 08/10/17 23:00 IMPRESSION: Moderate to severe congestive failure with small bilateral effusions Electronically Signed: Curt Rowe MD at 23:23 EDT , Service support , Chest X-Ray 08/11/17 11:09 IMPRESSION: No interval change Electronically Signed: Marito Molina MD at 11:36 EDT , Service support , Operations: None Procedures: 2-D Echocardiogram Summary of Care Provided: The patient is a 82 year old F [place] with shortness of breath. Patient was found to be in CHF with x-ray consistent with CHF as well as an elevated BNP. Patient was started on strip and did improve diuresis. The following day, patient was transitioned over to bolus Lasix. Patient continued to improve. On the first is that the patient's creatinine was going up so the Lasix then changed over to oral Lasix and patient has continued to improve. Patient did have some hypoxic respiratory failure when she arrived due to the heart failure and was put temporarily on the BiPAP. Patient essentially improved. Patient was ambulating did drop to 87% on room air so therefore will require home oxygen upon discharge. 1. acute HFpEF * EF 50%. * complicated by mild pulm HTN * improved * weight down to 89.1, from 93.9kg * change lasix to oral (40 BID) * No ACEi nor ARB, given CKD. Instead, continue hydralazine and Imdur 2. acute hypoxic respiratory failure * secondary to #1 * doubt COPD exacerbation and pneumonia * DC steroids and abx. 3. CKD 3 * stable * avoid nephrotoxic agents 4. pAfib * on coumadin * metoprolol tartrate 5. DVT proph: on coumadin 6. DM2 * fair control * continue levemir and SSI * stop metformin in light of CHF 7. Disposition: Home with [facility]. Will require oxygen at home as pt dropped to 87% on room air with ambulation (90% at rest).[] Discharge Diet: Low fat/ Low Cholesterol - 1800 kcal/day, 6 Cup Fluid Restriction, 2000 mg Sodium Diet Discharge Activity: Return to Normal Activity Weight Bearing Status: Weight bearing as tolerated Call your doctor if you observe: Fever of 101 or Higher, Shortness of breath, Chest pain Home Medications: Medications to take at Discharge Atorvastatin Calcium [Lipitor] 40 mg PO QHS 04/19/17 Calcium Carbonate/Vitamin D3 [Calcium 500-Vit D3 600 Tablet] 1 each PO BID 04/19 Hydralazine HCl 50 mg PO 4X/DAY 04/19/17 Insulin Detemir [Levemir] 30 unit SQ BID 04/19/17 Isosorbide Mononitrate [Imdur] 30 mg PO DAILY 04/19/17 Mirtazapine [Remeron] 15 mg PO QHS 04/19/17 Multivitamin [Daily Multiple Vitamin] 1 each PO DAILY 04/19/17 Omeprazole 40 mg PO DAILY 04/19/17 Warfarin [Coumadin] 6 mg PO SUMOWEFRSA 04/19/17 Warfarin [Coumadin] 3 mg PO TUTH 08/10/17 Acetaminophen [Tylenol Tablet] 650 mg PO Q6H PRN PRN tablet 08/13/17 Furosemide [Lasix] 40 mg PO BID@1000,1800 #60 tab 08/13/17 Metoprolol Tartrate [Lopressor (beta joan)] 12.5 mg PO BID #60 tab 08/13/17 Following Prescrptions Were Given to Patient: Furosemide [Lasix] 40 mg PO BID@1000,1800 #60 tab Metoprolol Tartrate [Lopressor (beta joan)] 12.5 mg PO BID #60 tab Primary Care Physician: Eliot Loja MD [Primary Care Provider] - Within 2 Weeks Please Follow Up With: Ángel Michelle MD When: 2-4 weeks Disposition: Home with Home Health Minutes spent on discharge:: 32 Patient Condition:: Fair Medical Necessity - Tobacco Use Smoking Status: Never smoker Meaningful Use Info Meaningful Use Diagnoses (Choose all that apply): CHF - CHF LEANDER/ARB ordered at discharge?: No Reason LEANDER/ARB not ordered?: Worsening renal disease Documented LVEF (%): 50 Code Visit Inpatient E&M: [id number] Disch Hosp
--- NOTE | 2017-08-13 14:12 | CASEMGMT ---
Addendum entered by Kay Montalvo 08/13/17 15:10: [facility] states they did receive fax at this time. Awaiting delivery of tank for pt to be discharged. Granddaughter did state to this RN CM that [facility] would pick pt up when ready for discharge. Evy ROWLAND aware at this time. Ronel ROWLAND CM Original Note: Per Evy RN, pt qualifies for home oxygen at this time. This RN CM placed call to pt's granddaughter, Razia, to see if she has a preference on DME. Per Razia, she would like [facility] at this time. Referral faxed to [facility] at this time. Call to [facility] to verify fax received at this time and per [facility], they have not received fax yet but will call this RN CM if not received momentarily. Ronel ROWLAND CM
--- NOTE | 2017-08-13 15:36 | CASEMGMT ---
[facility] called [facility] and they can transport patient home. They are available until 530. She said if it is after 530 staff can call [facility] and she will transport patient home. transport home if before 530 [facility] [phone] if after 530 call [facility]- [phone] Nikki LEDESMA MSW
--- NOTE | 2017-08-13 15:54 | NURSING ---
SPOKE WITH Uri [facility], CALLED [facility] [phone] WILL TRANSPORT AT [phone]
[2017-08-13 16:06] LABS: Bedside Glucose 124 mg/dL (70-110)
--- NOTE | 2017-08-13 17:13 | NURSING ---
TRANSPORT HERE TO TAKE PATIENT BELONGINGS SENT HOME O2 SENT [facility] WILL MMET HER AT HER HOME
--- NOTE | 2017-08-15 15:47 | CASEMGMT ---
JANETT MONTERROSO Discharge F/U Phone Call Pt's contact number is her granddaughter's who cares for her but her granddaughter is currently on vacation. This JANETT MONTERROSO will attempt to reach her on Friday, August 18 once she has returned to f/u regarding pt. [place] JANETT MONTERROSO
== END 2017-08-13 17:09 | disposition home health service (06) | DRG 291 ==
LOC: ED 23:18 → PCU 08-11 00:21
PROVIDERS: Hospitalist; Admitting Provider Internal Medicine; Emergency Provider Emergency Medicine; Family Provider Internal Medicine; PCP Internal Medicine
DX: I13.0 Hypertensive heart and chronic kidney disease with heart failure and stage 1 through stage 4 chronic kidney disease, or unspecified chronic kidney disease (principal); I50.43 Acute on chronic combined systolic (congestive) and diastolic (congestive) heart failure; J96.01 Acute respiratory failure with hypoxia; E87.0 Hyperosmolality and hypernatremia; E11.22 Type 2 diabetes mellitus with diabetic chronic kidney disease; N18.3 Chronic kidney disease, stage 3 (moderate); Z79.4 Long term (current) use of insulin; I48.0 Paroxysmal atrial fibrillation; D64.9 Anemia, unspecified; I25.10 Atherosclerotic heart disease of native coronary artery without angina pectoris; E78.5 Hyperlipidemia, unspecified; E66.9 Obesity, unspecified; Z68.35 Body mass index [BMI] 35.0-35.9, adult; J44.9 Chronic obstructive pulmonary disease, unspecified; Z95.1 Presence of aortocoronary bypass graft; I25.5 Ischemic cardiomyopathy; Z87.11 Personal history of peptic ulcer disease; Z79.899 Other long term (current) drug therapy; I27.20 Pulmonary hypertension, unspecified; Z79.01 Long term (current) use of anticoagulants
CPT/HCPCS: 36415; 71046; 80048; 80061; 82962; 83735; 83880; 84443; 84484; 85025; 85610; 87804; 93005; 93306; 94002; 94640; 94667; 94668; 94762; 97162; 97165; 97530; 97535; 97802; 99285; A4216; J1940

== ENCOUNTER 2017-09-22 23:22 | Inpatient (IN) | payer MEDICARE, SELFPAY ==
[2017-09-22 23:24] VITALS: BP 172/68; PULSE 68; RESP 12; TEMP 36.8; O2SAT 85; BMI 35.2
[2017-09-22 23:25] VITALS: O2SAT 96
[2017-09-22 23:28] VITALS: O2SAT 97
[2017-09-23] VITALS (23 sets, daily range): BP systolic 111–180; BP diastolic 37–75; PULSE 39–94; RESP 18–27; TEMP 36.3–37.3; O2SAT 92–98; BMI 34.2
--- NOTE | 2017-09-23 00:19 | RAD_ITS ---
STUDY: X-RAY CHEST REASON FOR EXAM: Female, 82 years old. SOB TECHNIQUE: Frontal and lateral views of the chest. COMPARISON: 08/11/2017 FINDINGS: Median sternotomy wires. Bibasilar and bilateral perihilar alveolar disease. There is no demonstrated pleural abnormality. Stable large cardiac silhouette. Normal mediastinum and damian. Normal visualized pulmonary arteries. There is atherosclerotic calcification of the aortic arch with tortuosity. There are diffuse degenerative changes of the visualized thoracic spine. Normal visualized ribs, clavicles, and shoulders. There is no demonstrated abnormality of the visualized soft tissue structures of the upper abdomen. RAD/Chest PA and Lateral IMPRESSION: Bibasilar and bilateral perihilar alveolar disease. Electronically Signed: Noah Pickens MD at 1:51 EDT Tel , Service support ,
--- NOTE | 2017-09-23 00:19 | EKG12_ITS ---
Test Reason : SOB Blood Pressure : / mmHG Vent. Rate : 071 BPM Atrial Rate : 059 BPM P-R Int : 000 ms QRS Dur : 124 ms QT Int : 418 ms P-R-T Axes : 000 -02 174 degrees QTc Int : 454 ms Atrial fibrillation Right bundle branch block Abnormal ECG Confirmed by LINDY STOVALL, JENNIFER ([id number]), manager editorial STEFANIA WILDER ([id number]) on 09/24/2017 5:19:23 PM Referred By: DR TREJO Confirmed By:JENNIFER ISRAEL MD
[2017-09-23 00:35] LABS: Absolute Lymphocyte Count 0.69 X10^3/ul (0.83-4.51); Absolute Neutrophil Count 7.8 X10^3/uL (2.0-7.7); Basophil# 0.02 X10^3/uL; Basophil% 0.2 % (0-1); Eosinophil# 0.07 X10^3/uL; Eosinophils% 0.8 % (0-5); Hematocrit 28.1 % (37-47); Hemoglobin 7.8 g/dl (12.0-15.0); Lymphocyte # 0.69 X10^3/ul (4.0); Lymphocyte % 7.5 % (19-41); Mean Corp Hgb Conc 27.8 g/gl (32-36); Mean Corpuscular Hgb 25.2 pg (27.0-32.0); Mean Corpuscular Volume 90.6 fL (81-99); Mean Platelet Vol. 10.4 fl (6.2-12.0); Monocyte# 0.54 X10^3/uL; Monocyte% 5.9 % (0-10); Neutrophil # 7.81 X10^3/uL (2.7-7.7); Neutrophil % 85.5 % (47-70); Platelet Count 212 K/mm3 (150-450); RBC Distribution Width CV 19.7 % (11.6-14.6); RBC Distribution Width SD 65.3 fl (35.1-43.9); White Blood Count 9.1 K/mm3 (4.4-11.0)
[2017-09-23 00:41] LABS: Differential Indicated SCAN CRITERIA MET; POSITIVE COUNT NO; POSITIVE DIFFERENTIAL NO; POSITIVE MORPHOLOGY YES
[2017-09-23 00:49] LABS: Anion Gap 3 (5-15); BUN 32 mg/dL (7-18); BUN/Creat Ratio 21.8 RATIO (10-20); Calcium,Total 8.6 mg/dL (8.5-10.1); Chloride 112 mmol/L (98-107); Creatinine, Serum 1.47 mg/dL (0.55-1.02); EST Glomerular Filtration Rate 36 mL/min (>60); Est Glom Filt Rate - Afr Amer 44 mL/min (>60); Glucose 193 mg/dL (74-106); Potassium 4.3 mmol/L (3.5-5.1); Sodium Level 146 mmol/L (136-145)
[2017-09-23 00:53] LABS: Anisocytosis 3+; Differential Comment SCANNED
--- NOTE | 2017-09-23 01:50 | ED.VISSUMM ---
- ER Visit Summary Date of Service: 09/23/17 Chief Complaint: Shortness of breath History of Present Illness: The patient is a 82 F who is not a good informant presents with shortness of breath. She denies chest pain. She does complain of orthopnea pedal edema. She denies PND. She denies any history of PE or DVT. She denies any GI symptoms. She denies black or maroon stool. She does report history of irregular heartbeat. Review of systems remarkable for dyspnea, nonproductive cough, orthopnea. She also complains of chronic back pain. She reports generalized weakness and bruising easily. Review of prior records indicate she is on Coumadin will obtain a PT/INR. Physical Examination: Patient is tachypnic. She is not hypoxic on 2 L of oxygen. Blood pressure elevated 157/75. HEENT exam is marked poor dentition. Heart is irregularly irregular. She has minimal air movement unable to determine she has rales wheezing. Abdomen soft nontender. There is evidence of pedal edema. He is alert oriented. She has a nonfocal neurologic exam. Test Results: EKG reveals atrial fibrillation with a right bundle branch block and rate of 71. Chest x-ray reveals cardiomegaly and significant CHF/pulmonary edema. Hemoglobin 7.8 and 28.1. Sodium is elevated 146 and chloride is 112. BUN and [place] are elevated. Creatinine is 1.47, which is baseline. Glucose elevated 193. Troponin is indeterminate, 0.098. Believe the elevated troponin secondary to CHF. Emergency Department Course and Treatment: IV was established. Workup was undertaken to determine etiology of her dyspnea IE pulmonary versus cardiac. Also need to consider anemia since she appears pale. Treatment Plan: Lasix IV push and hospitalist was called for admission Disposition: PCU Impression: 1. Acute dyspnea secondary to acute exacerbation CHF/pulmonary edema 2. Elevated troponin rule out cardiac ischemia 3. Anemia unknown cause 4. Chronic renal insufficiency 5. History of coronary disease 6. History of COPD 7. Hyperglycemia in diabetic patient 8. History of gastric ulcer This note was generated with buildabrand dictation software. It may contain incorrect words, spelling, and punctuation that were not noted in review of the chart prior to signing ED Disposition - Plan for ED Patient: Chief Complaint: Shortness of Breath Referrals: Eliot Loja MD [Primary Care Provider] -
--- NOTE | 2017-09-23 02:01 | PCM.HP.STD ---
Problem List (1) Acute respiratory failure with hypoxia Status: Acute (2) Afib Status: Chronic (3) CHF (congestive heart failure) Status: Chronic (4) CAD (coronary artery disease) Status: Chronic (5) Diabetes Status: Chronic History of Present Illness Date of Admission: 09/23/17 Chief Complaint: SHORTNESS OF BREATH The patient is a 82 year old female patient with a past medical history of CHF and COPD presents to the ER with acute shortness of breath. She was not exerting herself this evening yet had difficulty in breathing. She was admitted for 3 days in early August for a similar episode. Her CBC shows anemia but white blood cell count is within normal limits. Her Troponin is elevated and BNP is pending at this time. She has increased her respiratory rate to 27 and is requiring 5 liters of oxygen via nasal cannula to maintain her SPO2 above 90%. She does feel some relief since she has arrived. Chest x-ray shows bilateral alveolar disease. She will be admitted to PCU for further management including diuresis and respiratory management. Past Medical History Past Medical History (Chronic Problems): Chronic Problems (Last Updated 08/20/17 @ 16:19 by Kate Temple) Afib (Chronic) Gastric ulcer (Chronic) Colon polyps (Chronic) CHF (congestive heart failure) (Chronic) CAD (coronary artery disease) (Chronic) Diabetes (Chronic) Dizziness (Chronic) Chronic coronary artery disease (Chronic) Medical History: Medical History (Last Updated 08/20/17 @ 16:19 by Kate Temple) Colon polyps (Chronic) CHF (congestive heart failure) (Chronic) I50.9 CAD (coronary artery disease) (Chronic) I25.10 Chronic coronary artery disease (Chronic) I25.10 Allergies LEANDER Inhibitors Allergy (Verified 09/22/17 23:22) Unknown Home Medications: Ambulatory Orders Medication Instructions Recorded Atorvastatin Calcium [Lipitor] 40 mg PO QHS 04/19/17 Calcium Carbonate/Vitamin D3 1 each PO BID 04/19/17 [Calcium 500-Vit D3 600 Tablet] Hydralazine HCl 50 mg PO 4X/DAY 04/19/17 Insulin Detemir [Levemir] 30 unit SQ BID 04/19/17 Isosorbide Mononitrate [Imdur] 30 mg PO DAILY 04/19/17 Mirtazapine [Remeron] 15 mg PO QHS 04/19/17 Multivitamin [Daily Multiple 1 each PO DAILY 04/19/17 Vitamin] Omeprazole 40 mg PO DAILY 04/19/17 Warfarin [Coumadin] 6 mg PO SUMOWEFRSA 04/19/17 Warfarin [Coumadin] 3 mg PO TUTH 08/10/17 Acetaminophen [Tylenol Tablet] 650 mg PO Q6H PRN PRN tablet 08/13/17 Furosemide [Lasix] 40 mg PO BID@1000,1800 #60 tab 08/13/17 Metoprolol Tartrate [Lopressor 12.5 mg PO BID #60 tab 08/13/17 (beta joan)] Surgical History: coronary bypass surgery, - - appendectemy, cholecystectemy, tonsil and adenoids, cabg - she cannot having any stents Smoking Status: Never smoker - *Family History Maternal History Items: No pertinent history Review of Systems Constitutional: Reports: Weakness. Denies: Chills, Fever, Weight Change HEENT: Denies: Head Aches, Sinus Congestion, Sinus Drainage Cardiovascular: Denies: Chest Pain, Palpitations Respiratory: Reports: Shortness of breath at rest. Denies: Cough, Sputum production Gastrointestinal: Denies: Abdominal Pain, Nausea, Vomiting Genitourinary: Denies: Dysuria Musculoskeletal: Denies: Joint Pain, Joint Tenderness Skin: Denies: Rash, Wounds Neurological: Denies: Numbness, Tingling, Focal weakness Psychiatric: Denies: Anxiety, Depression, Homicidal Ideations, Suicidal Ideations Hematologic/ Lymphatic: Denies: Easy Bruising, Easy Bleeding VTE Information - Inpt Only VTE Present on Admission: No VTE Mechan Device Prophylaxis: None VTE Pharm Prophylaxis ordered?: Yes - Physical Exam General: Alert, Oriented x3, Cooperative HEENT: Atraumatic, Normocephalic Neck: Supple Lungs: No rhonchi, No wheeze, No rales, Diminished, Tachypneic Cardiovascular: Normal S1, Normal S2, No murmurs, Irregular Rate Abdomen: Bowel Sounds Present, Soft, Non Tender, Obese Extremities: Edema - 1+ bilat lower ext Skin: No rashes Musculoskeletal: No Tenderness to Palpation of Joints or Extremities Neurological: Neuro grossly intact Psych/Mental Status: Normal Affect, Appropriate Vital Signs Temp Pulse Resp BP Pulse Ox 98.2 F 64 27 H 157/75 H 97 09/22/17 23:24 09/23/17 01:42 09/23/17 01:42 09/23/17 01:42 09/23/17 01:42 Oxygen Flow Rate (L/min) 5 Oxygen Delivery Method Nasal Cannula Weight: 205 lb 4.006 oz Body Mass Index (BMI) 35.2 Finger Stick Blood Glucose 65 Laboratory Tests Past 24 Hrs 09/23/17 09/23/17 09/23/17 00:25 00:25 00:25 WBC 9.1 RBC 3.10 L Hgb 7.8 L Hct 28.1 L MCV 90.6 MCH 25.2 L MCHC 27.8 L RDW 19.7 H RDW Differential 65.3 H Plt Count 212 MPV 10.4 Immature Gran % (Auto) 0.100 Neut % (Auto) 85.5 H Lymph % (Auto) 7.5 L [place] % (Auto) 5.9 Eos % (Auto) 0.8 Baso % (Auto) 0.2 Absolute Neuts (auto) 7.8 H Absolute Lymphs (auto) 0.69 L Total Counted Not Reportable Differential Comment SCANNED Anisocytosis 3+ Sodium 146 H Potassium 4.3 Chloride 112 H Carbon Dioxide 31.0 Anion Gap 3 L BUN 32 H Creatinine 1.47 H Est GFR (MDRD) Af Amer 44 L Est GFR (MDRD) Non-Af 36 L BUN/Creatinine Ratio 21.8 H Glucose 193 H Calcium 8.6 Troponin I 0.098 H B-Natriuretic Peptide Pending Assessment/Plan All Active Problems (Last Updated 08/20/17 @ 16:19 by Kate Temple) Acute respiratory failure with hypoxia (Acute) Acute on chronic combined systolic and diastolic heart failure (Acute) COPD exacerbation (Acute) Chest pain (Acute) Fall (Acute) SOB (shortness of breath) (Acute) Chronic Problems (Last Updated 08/20/17 @ 16:19 by Kate Temple) Gastric ulcer (Chronic) Colon polyps (Chronic) CHF (congestive heart failure) (Chronic) CAD (coronary artery disease) (Chronic) Diabetes (Chronic) Dizziness (Chronic) Chronic coronary artery disease (Chronic) Plan - admit to PCU - cycle cardiac enzymes - solumedrol 40mg iv q 8hrs - levaquin 500mg IV q day - duoneb inh q 4hrs prn - continue oxygen per protocol - continue routine home medications for stable medical conditions - diuresis with lasix - consider BIPAp if respiratory status digresses - LMWH for DVT prophylaxis Code Visit Inpatient E&M: [id number] Init Hosp L3
--- NOTE | 2017-09-23 02:11 | DT_ITS ---
This patient was seen during an EMR downtime September 15, 2017 - September 22, 2017. This patient may have a combination of paper and electronic documentation or all paper documentation. All documentation is viewable within the e-chart portion of [facility] for each patient visit.
[2017-09-23] MEDS: Furosemide 40 MG/4 ML Vial IV ×2 (02:20→17:26)
[2017-09-23 04:01] LABS: International Normalized Ratio 2.3; Prothrombin Time (Protime)PT. 25.2 SECONDS (11.7-14.9)
[2017-09-23 04:29] LABS: BNP,B-Type NATRIURETIC PEPTIDE 1018.6 pg/mL (0-100)
[2017-09-23] MEDS: 0.9% NaCl Peripheral Flush Adult/Peds IV ×3 (06:23→17:26)
[2017-09-23 06:37] LABS: Absolute Lymphocyte Count 0.85 X10^3/ul (0.83-4.51); Absolute Neutrophil Count 5.8 X10^3/uL (2.0-7.7); Basophil# 0.02 X10^3/uL; Basophil% 0.3 % (0-1); Eosinophil# 0.09 X10^3/uL; Eosinophils% 1.2 % (0-5); Hematocrit 28.6 % (37-47); Hemoglobin 7.8 g/dl (12.0-15.0); Lymphocyte # 0.85 X10^3/ul (4.0); Lymphocyte % 11.6 % (19-41); Mean Corp Hgb Conc 27.3 g/gl (32-36); Mean Corpuscular Hgb 25.5 pg (27.0-32.0); Mean Corpuscular Volume 93.5 fL (81-99); Monocyte# 0.53 X10^3/uL; Monocyte% 7.2 % (0-10); Neutrophil # 5.84 X10^3/uL (2.7-7.7); Neutrophil % 79.4 % (47-70); Platelet Count 216 K/mm3 (150-450); RBC Distribution Width CV 19.6 % (11.6-14.6); RBC Distribution Width SD 64.8 fl (35.1-43.9); Red Blood Count 3.06 M/mm3 (4.2-5.4); White Blood Count 7.4 K/mm3 (4.4-11.0)
--- NOTE | 2017-09-23 06:49 | NURSING ---
spoke with granddaughter Razia who is the POA. gave her an update on patient.
[2017-09-23 06:54] LABS: POSITIVE COUNT NO; POSITIVE DIFFERENTIAL NO; POSITIVE MORPHOLOGY NO
[2017-09-23 07:00] LABS: Bedside Glucose 119 mg/dL (70-110)
[2017-09-23 07:00] LABS: ALB/GLOB Ratio 0.6 RATIO (0.9-2.4); AST(SGOT) 26 U/L (15-37); Alanine Aminotransfer ALT/SGPT 24 U/L (13-56); Albumin, Serum 2.8 g/dL (3.2-5.0); Alkaline Phosphatase 88 U/L (45-117); Anion Gap 4 (5-15); BUN 29 mg/dL (7-18); Calcium,Total 8.3 mg/dL (8.5-10.1); Chloride 112 mmol/L (98-107); Creatinine, Serum 1.38 mg/dL (0.55-1.02); EST Glomerular Filtration Rate 39 mL/min (>60); Est Glom Filt Rate - Afr Amer 47 mL/min (>60); Estimated Creatinine Clearance 27.61 ml/min; Globulin 4.5 g/dL (2.2-4.2); Glucose 112 mg/dL (74-106); Potassium 4.1 mmol/L (3.5-5.1); Protein, Total 7.3 g/dL (6.4-8.2); Sodium Level 147 mmol/L (136-145)
[2017-09-23 07:49] LABS: BNP,B-Type NATRIURETIC PEPTIDE 965.2 pg/mL (0-100)
--- NOTE | 2017-09-23 08:22 | RAD_ITS ---
STUDY: X-RAY CHEST REASON FOR EXAM: Female, 82 years old. Shortness of breath TECHNIQUE: AP and lateral views of the chest. COMPARISON: 09/23/2017 FINDINGS: Cardiac monitoring leads overlie the chest. There is continued bilateral alveolar opacities. Differential considerations include pulmonary edema and multifocal pneumonia. A small left pleural effusion cannot be excluded. There is moderate cardiac enlargement. Sternal wires are present. There is interruption of the superior most sternal wires. Normal mediastinum and damian. Normal visualized pulmonary arteries. Normal visualized aortic arch and descending thoracic aorta. Normal visualized thoracic spine. Normal visualized ribs, clavicles, and shoulders. There is no demonstrated abnormality of the visualized soft tissue structures of the upper abdomen. RAD/Chest PA and Lateral IMPRESSION: Findings are suggestive of pulmonary edema or multifocal pneumonia. Electronically Signed: Mateo Bledsoe DO at 9:16 EDT Tel , Service support ,
[2017-09-23] MEDS: Calcium Carb/Vitamin D 1 TABLET Tablet PO ×2 (09:11→17:27)
[2017-09-23] MEDS: Metoprolol Tartrate 25 MG Tablet 12.5 MG PO ×2 (09:11→21:08)
[2017-09-23] MEDS: hydrALAZINE 50 MG Tablet PO ×4 (09:11→21:09)
[2017-09-23] MEDS: Multivitamins,Therapeutic Tablet 1 TABLET PO (09:11)
[2017-09-23] MEDS: Pantoprazole Sodium 40 MG Tablet PO (09:11)
[2017-09-23] MEDS: Furosemide 40 MG Tablet PO (09:11)
[2017-09-23] MEDS: Enoxaparin 30 MG/0.3 ML Syringe SC (09:11)
[2017-09-23] MEDS: Isosorbide Mononitrate 30 MG Tablet PO (09:11)
[2017-09-23] MEDS: Nystatin Powder 15gm Bottle 1 APPLIC TOPICAL ×2 (09:13→21:09)
--- NOTE | 2017-09-23 10:38 | CASEMGMT ---
Patient familiar to this SW from past admission. SW spoke with patient and her granddaughter. Patient continues to go to [facility] M,W, and F. She has aides 2 hours a day 2 times a week from [facility]. Her Passport Yard Stocker is Samaria Phillips [phone]. Plan: Return home at d/c with resumption of Passport services. Nikki LEDESMA MSW
--- NOTE | 2017-09-23 16:07 | PCM.HOSP.N ---
Hospitalist Note The patient was seen and examined today. 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 On exam Lungs: Air entry diminished. Bilateral crepitations and rhonchi present Heart S1-S2 status post CABG. Extremities: Pedal edema present Patient is on Lasix, hydralazine, isosorbide mononitrate, metoprolol bronchodilator and Solu-Medrol. Patient feels improvement. Laboratory Results 09/23/17 00:25: WBC 9.1, RBC 3.10 L, Hgb 7.8 L, Hct 28.1 L, MCV 90.6, MCH 25.2 L, MCHC 27.8 L, RDW 19.7 H, RDW Differential 65.3 H, Plt Count 212, MPV 10.4, Immature Gran % (Auto) 0.100, Neut % (Auto) 85.5 H, Lymph % (Auto) 7.5 L, [place] % (Auto) 5.9, Eos % (Auto) 0.8, Baso % (Auto) 0.2, Absolute Neuts (auto) 7.8 H, Absolute Lymphs (auto) 0.69 L, Total Counted Not Reportable, Differential Comment SCANNED, Anisocytosis 3+ 09/23/17 00:25: Sodium 146 H, Potassium 4.3, Chloride 112 H, Carbon Dioxide 31.0, Anion Gap 3 L, BUN 32 H, Creatinine 1.47 H, Est GFR (MDRD) Af Amer 44 L, Est GFR (MDRD) Non-Af 36 L, BUN/Creatinine Ratio 21.8 H, Glucose 193 H, Calcium 8.6, Troponin I 0.098 H 09/23/17 00:25: B-Natriuretic Peptide 911.0 H 09/23/17 03:30: B-Natriuretic Peptide 1018.6 H 09/23/17 03:30: Troponin I 0.249 H 09/23/17 03:30: PT 25.2 H, INR 2.3, APTT 33.0 09/23/17 06:05: WBC 7.4, RBC 3.06 L, Hgb 7.8 L, Hct 28.6 L, MCV 93.5, MCH 25.5 L, MCHC 27.3 L, RDW 19.6 H, RDW Differential 64.8 H, Plt Count 216, MPV 11.0, Immature Gran % (Auto) 0.300, Neut % (Auto) 79.4 H, Lymph % (Auto) 11.6 L, [place] % (Auto) 7.2, Eos % (Auto) 1.2, Baso % (Auto) 0.3, Absolute Neuts (auto) 5.8, Absolute Lymphs (auto) 0.85, Total Counted Not Reportable 09/23/17 06:05: Sodium 147 H, Potassium 4.1, Chloride 112 H, Carbon Dioxide 31.0, Anion Gap 4 L, BUN 29 H, Creatinine 1.38 H, Estim Creat Clear Calc 27.61, Est GFR (MDRD) Af Amer 47 L, Est GFR (MDRD) Non-Af 39 L, BUN/Creatinine Ratio 21.0 H, Glucose 112 H, Calcium 8.3 L, Total Bilirubin 0.90, AST 26, ALT 24, Alkaline Phosphatase 88, Total Protein 7.3, Albumin 2.8 L, Globulin 4.5 H, Albumin/Globulin Ratio 0.6 L 09/23/17 06:05: B-Natriuretic Peptide 965.2 H 09/23/17 06:05: Troponin I 0.311 H 09/23/17 06:54: POC Glucose 119 H Clinical Impression(s) from Imaging Studies Chest X-Ray 09/23/17 00:19 IMPRESSION: Bibasilar and bilateral perihilar alveolar disease. Electronically Signed: Noah Pickens MD at 1:51 EDT Tel , Service support , Chest X-Ray 09/23/17 08:22 IMPRESSION: Findings are suggestive of pulmonary edema or multifocal pneumonia.
--- NOTE | 2017-09-23 16:17 | CCHN_ITS ---
Hospitalist Note The patient was seen and examined today. 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 On exam Lungs: Air entry diminished. Bilateral crepitations and rhonchi present Heart S1-S2 status post CABG. Extremities: Pedal edema present Patient is on Lasix, hydralazine, isosorbide mononitrate, metoprolol bronchodilator and Solu-Medrol. Patient feels improvement. Laboratory Results 09/23/17 00:25: WBC 9.1, RBC 3.10 L, Hgb 7.8 L, Hct 28.1 L, MCV 90.6, MCH 25.2 L , MCHC 27.8 L, RDW 19.7 H, RDW Differential 65.3 H, Plt Count 212, MPV 10.4, Immature Gran % (Auto) 0.100, Neut % (Auto) 85.5 H, Lymph % (Auto) 7.5 L, [place] % (Auto) 5.9, Eos % (Auto) 0.8, Baso % (Auto) 0.2, Absolute Neuts (auto) 7.8 H, Absolute Lymphs (auto) 0.69 L, Total Counted Not Reportable, Differential Comment SCANNED, Anisocytosis 3+ 09/23/17 00:25: Sodium 146 H, Potassium 4.3, Chloride 112 H, Carbon Dioxide 31.0 , Anion Gap 3 L, BUN 32 H, Creatinine 1.47 H, Est GFR (MDRD) Af Amer 44 L, Est GFR (MDRD) Non-Af 36 L, BUN/Creatinine Ratio 21.8 H, Glucose 193 H, Calcium 8.6 , Troponin I 0.098 H 09/23/17 00:25: B-Natriuretic Peptide 911.0 H 09/23/17 03:30: B-Natriuretic Peptide 1018.6 H 09/23/17 03:30: Troponin I 0.249 H 09/23/17 03:30: PT 25.2 H, INR 2.3, APTT 33.0 09/23/17 06:05: WBC 7.4, RBC 3.06 L, Hgb 7.8 L, Hct 28.6 L, MCV 93.5, MCH 25.5 L , MCHC 27.3 L, RDW 19.6 H, RDW Differential 64.8 H, Plt Count 216, MPV 11.0, Immature Gran % (Auto) 0.300, Neut % (Auto) 79.4 H, Lymph % (Auto) 11.6 L, [place] % (Auto) 7.2, Eos % (Auto) 1.2, Baso % (Auto) 0.3, Absolute Neuts (auto) 5.8, Absolute Lymphs (auto) 0.85, Total Counted Not Reportable 09/23/17 06:05: Sodium 147 H, Potassium 4.1, Chloride 112 H, Carbon Dioxide 31.0 , Anion Gap 4 L, BUN 29 H, Creatinine 1.38 H, Estim Creat Clear Calc 27.61, Est GFR (MDRD) Af Amer 47 L, Est GFR (MDRD) Non-Af 39 L, BUN/Creatinine Ratio 21.0 H , Glucose 112 H, Calcium 8.3 L, Total Bilirubin 0.90, AST 26, ALT 24, Alkaline Phosphatase 88, Total Protein 7.3, Albumin 2.8 L, Globulin 4.5 H, Albumin/ Globulin Ratio 0.6 L 09/23/17 06:05: B-Natriuretic Peptide 965.2 H 09/23/17 06:05: Troponin I 0.311 H 09/23/17 06:54: POC Glucose 119 H Clinical Impression(s) from Imaging Studies Chest X-Ray 09/23/17 00:19 IMPRESSION: Bibasilar and bilateral perihilar alveolar disease. Electronically Signed: Noah Pickens MD at 1:51 EDT Tel , Service support , Chest X-Ray 09/23/17 08:22 IMPRESSION: Findings are suggestive of pulmonary edema or multifocal pneumonia.
[2017-09-23] MEDS: Atorvastatin Calcium 40 MG Tablet PO (21:08)
[2017-09-23] MEDS: Mirtazapine 15 MG Tablet PO (21:09)
[2017-09-23 22:20] LABS: Bedside Glucose 364 mg/dL (70-110)
[2017-09-24] VITALS (19 sets, daily range): BP systolic 107–141; BP diastolic 33–76; PULSE 47–90; RESP 20–22; TEMP 36.1–36.9; O2SAT 93–98
[2017-09-24] MEDS: Acetaminophen 325 MG Tablet 650 MG PO (00:04)
[2017-09-24] MEDS: 0.9% NaCl Peripheral Flush Adult/Peds IV ×2 (05:56→17:12)
[2017-09-24 06:11] LABS: International Normalized Ratio 2.6; Prothrombin Time (Protime)PT. 27.7 SECONDS (11.7-14.9)
[2017-09-24 06:18] LABS: Absolute Lymphocyte Count 0.72 X10^3/ul (0.83-4.51); Absolute Neutrophil Count 6.8 X10^3/uL (2.0-7.7); Anion Gap 10 (5-15); BUN 58 mg/dL (7-18); BUN/Creat Ratio 24.9 RATIO (10-20); Calcium,Total 9.1 mg/dL (8.5-10.1); Chloride 109 mmol/L (98-107); Creatinine, Serum 2.33 mg/dL (0.55-1.02); EST Glomerular Filtration Rate 21 mL/min (>60); Est Glom Filt Rate - Afr Amer 26 mL/min (>60); Estimated Creatinine Clearance 16.35 ml/min; Glucose 294 mg/dL (74-106); Hematocrit 27.9 % (37-47); Hemoglobin 7.7 g/dl (12.0-15.0); Lymphocyte # 0.72 X10^3/ul (4.0); Lymphocyte % 9.4 % (19-41); Mean Corp Hgb Conc 27.6 g/gl (32-36); Mean Corpuscular Hgb 25.7 pg (27.0-32.0); Mean Platelet Vol. 12.1 fl (6.2-12.0); Monocyte# 0.19 X10^3/uL; Monocyte% 2.5 % (0-10); Neutrophil # 6.75 X10^3/uL (2.7-7.7); Neutrophil % 87.8 % (47-70); Platelet Count 202 K/mm3 (150-450); Potassium 5.6 mmol/L (3.5-5.1); RBC Distribution Width CV 19.3 % (11.6-14.6); Sodium Level 147 mmol/L (136-145); White Blood Count 7.7 K/mm3 (4.4-11.0)
[2017-09-24 06:19] LABS: POSITIVE COUNT NO; POSITIVE DIFFERENTIAL NO
[2017-09-24 06:20] LABS: Absolute Nucleated RBC Count 0.09 10^3/uL (0-5); NRBC Flagged by Analyzer 1.2 % (0-5)
[2017-09-24 06:21] LABS: POSITIVE MORPHOLOGY NO
[2017-09-24 06:56] LABS: Bedside Glucose 274 mg/dL (70-110)
--- NOTE | 2017-09-24 08:42 | EKG12_ITS ---
Test Reason : Blood Pressure : / mmHG Vent. Rate : 075 BPM Atrial Rate : 047 BPM P-R Int : 000 ms QRS Dur : 122 ms QT Int : 410 ms P-R-T Axes : 000 -19 197 degrees QTc Int : 457 ms Atrial fibrillation Right bundle branch block T wave abnormality, consider inferior ischemia Abnormal ECG When compared with ECG of 23-SEP-2017 00:26, MANUAL COMPARISON REQUIRED, DATA IS UNCONFIRMED Confirmed by LINDY STOVALL, JENNIFER ([id number]), editor continuity and script STEFANIA WILDER ([id number]) on 10/02/2017 9:38:47 AM Referred By: ROSEY Confirmed By:JENNIFER ISRAEL MD
--- NOTE | 2017-09-24 09:03 | US_ITS ---
STUDY: RENAL ULTRASOUND - COMPLETE REASON FOR EXAM: Female, 82 years old. Acute renal failure. TECHNIQUE: Ultrasound evaluation of the kidneys was performed with real-time and static cormier-scale imaging. COMPARISON: None. FINDINGS: RIGHT KIDNEY: Normal location of the right kidney, which is normal in size. The right kidney measures 9.8 x 4.6 x 4.7 cm. There is a normal cortex of the right kidney. The renal cortex measures 1.4 cm. There is no right renal mass or cyst. There are no right renal calculi. There is no right hydronephrosis. LEFT KIDNEY: Normal location of the left kidney, which is normal in size. The left kidney measures 11.3 x 4.4 x 4.9 cm. There is a normal cortex of the left kidney. The renal cortex measures 1.5 cm. There is no left renal mass or cyst. There are no left renal calculi. There is no left hydronephrosis. BLADDER: There is a Schuler catheter within an incompletely distended urinary bladder. There is free fluid within the right upper quadrant. US/Kidney and Bladder IMPRESSION: No hydronephrosis identified. Electronically Signed: Leanna Peralta MD at 10:25 EDT Tel , Service support ,
--- NOTE | 2017-09-24 09:08 | PCM.PN.HOSP ---
Subjective: Patient has improvement in breathing. Yesterday evening Schuler catheter was placed for accurate I and O's monitoring. Patient had a big jump in creatinine, creatinine 2.3 AND K5.6. H&H low but stable. No external GI bleed but patient is on Coumadin for A. fib Vitals/I&O's: Vital Signs Temp Pulse Resp BP Pulse Ox 98.4 F 74 20 H 107/51 L 94 09/24/17 08:34 09/24/17 08:34 09/24/17 08:34 09/24/17 08:34 09/24/17 08:34 Oxygen Flow Rate (L/min) 2 Oxygen Delivery Method Nasal Cannula Weight: 198 lb 6.656 oz Body Mass Index (BMI) 34.2 Intake and Output for Last 24 Hours 09/22/17 09/23/17 09/24/17 23:59 23:59 23:59 Intake Total 850 / 850 Output Total 725 / 725 150 / 150 Balance 125 / 125 -150 / -150 General: Alert, Oriented x3, Cooperative HEENT: Atraumatic, PERRLA, EOMI, Normocephalic Neck: Supple, No JVD, Negative Carotid Bruits Lungs: Clear to auscultation, No rhonchi, No wheeze, No rales, Diminished - In bilateral lung bases Cardiovascular: Regular rate, Normal S2, No murmurs, Irregular Rate Abdomen: Bowel Sounds Present, Soft, Non Tender, Non-Distended, - - Schuler catheter Extremities: No edema, Capillary Refill Less than 3 Seconds Skin: No rashes, No breakdown Musculoskeletal: No Tenderness to Palpation of Joints or Extremities, Arthritic Changes Neurological: Cranial nerves II-XII grossly intact Psych/Mental Status: Normal Affect, Appropriate Laboratory Results 09/23/17 21:04: POC Glucose 364 H 09/24/17 05:00: WBC 7.7, RBC 3.00 L, Hgb 7.7 L, Hct 27.9 L, MCV 93.0, MCH 25.7 L, MCHC 27.6 L, RDW 19.3 H, RDW Differential 63.0 H, Plt Count 202, MPV 12.1 H, Immature Gran % (Auto) 0.300, Neut % (Auto) 87.8 H, Lymph % (Auto) 9.4 L, Dodge % (Auto) 2.5, Eos % (Auto) 0.0, Baso % (Auto) 0.0, Absolute Neuts (auto) 6.8, Absolute Lymphs (auto) 0.72 L, Total Counted Not Reportable, Nucleated RBC % 1.2, Diff Path Review May foll, Absolute Retic 0.09 09/24/17 05:00: PT 27.7 H, INR 2.6 09/24/17 05:00: Sodium 147 H, Potassium 5.6 H, Chloride 109 H, Carbon Dioxide 28.0, Anion Gap 10, BUN 58 H, Creatinine 2.33 H, Estim Creat Clear Calc 16.35, Est GFR (MDRD) Af Amer 26 L, Est GFR (MDRD) Non-Af 21 L, BUN/Creatinine Ratio 24.9 H, Glucose 294 H, Calcium 9.1 09/24/17 06:43: POC Glucose 274 H Current Medications Acetaminophen (Tylenol) 650 mg PO Q6H PRN PRN PRN Reason: Mild Pain (scale 0-3)/T>100.7 Last Admin: 09/24/17 00:04 Dose: 650 mg Albuterol/Ipratropium (Duoneb) 3 ml INHALATION Q4H.RT PRN PRN Reason: DYSPNEA/WHEEZING/SOB Atorvastatin Calcium (Lipitor) 40 mg PO QHS [facility] Last Admin: 09/23/17 21:08 Dose: 40 mg Calcium/Vitamin D (Os-West 500mg + D[facility] Last Admin: 09/23/17 17:27 Dose: 1 tablet Furosemide (Lasix) 40 mg IV DAILY [facility] Hydralazine HCl (Apresoline) 50 mg PO 4X/DAY [facility] Last Admin: 09/23/17 21:09 Dose: 50 mg Insulin Detemir (Levemir (Bkc)) 30 units SC BID [facility] Last Admin: 09/23/17 21:07 Dose: 30 u Isosorbide Mononitrate (Imdur) 30 mg PO DAILY [facility] Last Admin: 09/23/17 09:11 Dose: 30 mg Magnesium Hydroxide (Milk Of Magnesia) 30 ml PO DAILY PRN PRN Reason: Constipation Methylprednisolone (Solu-Medrol) 40 mg IV Q8 [facility] Last Admin: 09/24/17 05:56 Dose: 40 mg Metoprolol Tartrate (Lopressor (Beta Rah)) 12.5 mg PO BID [facility] Last Admin: 09/23/17 21:08 Dose: 12.5 mg Mirtazapine (Remeron) 15 mg PO QHS [facility] Last Admin: 09/23/17 21:09 Dose: 15 mg Multivitamins (Multivitamin) 1 tablet PO DAILY@0800 [facility] Last Admin: 09/23/17 09:11 Dose: 1 tablet Nutritional Formula (Lactose Free) (Ensure Enlive) 120 ml PO 4X/DAY [facility] Last Admin: 09/23/17 21:08 Dose: 120 ml Nystatin (Mycostatin Powder) 1 applic TOPICAL BID [facility] PRN Reason: Protocol Last Admin: 09/23/17 21:09 Dose: 1 applicatio Pantoprazole Sodium (Protonix) 40 mg PO DAILY [facility] Last Admin: 09/23/17 09:11 Dose: 40 mg Sodium Chloride () 5 - 30 ml IV UD PRN PRN Reason: SALINE FLUSH Last Admin: 09/24/17 05:56 Dose: 20 ml Sodium Polystyrene Sulfonate (Kayexalate) 30 gm PO X1 ONE Stop: 09/24/17 08:43 Warfarin Sodium (Coumadin (Pbkc)) 3 mg PO TuTh@1700 [facility] Last Admin: 09/23/17 17:27 Dose: 3 mg Warfarin Sodium (Coumadin (Pbkc)) 6 mg PO SuMoWeFrSa@1700 [facility] Medical Necessity - Tobacco Use Smoking Status: Never smoker Assessment/Plan All Active Problems (Last Updated 08/20/17 @ 16:19 by Kate Temple) Acute respiratory failure with hypoxia (Acute) Acute on chronic combined systolic and diastolic heart failure (Acute) COPD exacerbation (Acute) Chest pain (Acute) Fall (Acute) SOB (shortness of breath) (Acute) The patient is a 82-year-old female who was admitted with acute shortness of breath no chest pressure/tightness consistent with acute hypoxic respiratory failure probably secondary to acute on chronic combined systolic congestive heart failure and COPD exacerbation. Patient is on Lasix, hydralazine, isosorbide mononitrate, metoprolol bronchodilator and Solu-Medrol. 1. Acute hypoxic respiratory failure secondary to combined systolic and diastolic heart failure COPD exacerbation: Patient is on oxygen. 2. Acute on chronic combined heart failure: As per echo in August 10, 2017, EF 50% with severe concentric LVH, segmental systolic dysfunction. Left atrium mildly enlarged. Mild to moderate TR, RVSP 46 mmHg suggestive of mild pulmonary hypertension with normal right ventricular size and systolic function. 3. Acute kidney injury on CKD stage III, exact etiology unclear but possible hemodynamic fluid shift from diuretics: Mild hyperkalemia K5.6. Kayexalate 30 g ordered. Will change the Lasix to 40 mg IV daily. UA with urine culture ordered. Denies lower urinary tract symptoms. Urine dark yellow but clear no pus flakes or blood. Nephrology consult. Fe Urea, kidney and bladder ultrasound ordered. 4. Mild elevation in troponin possible due to kidney failure, CHF exacerbation: Patient denies any chest pain. EKG done today shows sinus rhythm with frequent PVCs. No significant ST-T changes as compared to previous EKG of 09/23/2012. 5. COPD: Do not think patient is an exacerbation as no expiratory wheezing. Discontinue Solu-Medrol. 6. Paroxysmal A. fib on Coumadin: She goes frequently in and out of A. fib. INR is therapeutic. 7 multiple other comorbidities include coronary artery disease, gastric ulcer, diabetes mellitus type 2, fall and decreased functional capacity: Home medication reconciliation done. PT and OT. This note was generated with [employer] dictation software. Every effort was made to ensure accuracy, however computerized aircraft pneudraulic systems mechanic mistakes may persist. 09/23/17 00:25: WBC 9.1, RBC 3.10 L, Hgb 7.8 L, Hct 28.1 L, MCV 90.6, MCH 25.2 L, MCHC 27.8 L, RDW 19.7 H, RDW Differential 65.3 H, Plt Count 212, MPV 10.4, Immature Gran % (Auto) 0.100, Neut % (Auto) 85.5 H, Lymph % (Auto) 7.5 L, Dodge % (Auto) 5.9, Eos % (Auto) 0.8, Baso % (Auto) 0.2, Absolute Neuts (auto) 7.8 H, Absolute Lymphs (auto) 0.69 L, Total Counted Not Reportable, Differential Comment SCANNED, Anisocytosis 3+ 09/23/17 00:25: Sodium 146 H, Potassium 4.3, Chloride 112 H, Carbon Dioxide 31.0, Anion Gap 3 L, BUN 32 H, Creatinine 1.47 H, Est GFR (MDRD) Af Amer 44 L, Est GFR (MDRD) Non-Af 36 L, BUN/Creatinine Ratio 21.8 H, Glucose 193 H, Calcium 8.6, Troponin I 0.098 H 09/23/17 00:25: B-Natriuretic Peptide 911.0 H 09/23/17 03:30: B-Natriuretic Peptide 1018.6 H 09/23/17 03:30: Troponin I 0.249 H 09/23/17 03:30: PT 25.2 H, INR 2.3, APTT 33.0 09/23/17 06:05: WBC 7.4, RBC 3.06 L, Hgb 7.8 L, Hct 28.6 L, MCV 93.5, MCH 25.5 L, MCHC 27.3 L, RDW 19.6 H, RDW Differential 64.8 H, Plt Count 216, MPV 11.0, Immature Gran % (Auto) 0.300, Neut % (Auto) 79.4 H, Lymph % (Auto) 11.6 L, Dodge % (Auto) 7.2, Eos % (Auto) 1.2, Baso % (Auto) 0.3, Absolute Neuts (auto) 5.8, Absolute Lymphs (auto) 0.85, Total Counted Not Reportable 09/23/17 06:05: Sodium 147 H, Potassium 4.1, Chloride 112 H, Carbon Dioxide 31.0, Anion Gap 4 L, BUN 29 H, Creatinine 1.38 H, Estim Creat Clear Calc 27.61, Est GFR (MDRD) Af Amer 47 L, Est GFR (MDRD) Non-Af 39 L, BUN/Creatinine Ratio 21.0 H, Glucose 112 H, Calcium 8.3 L, Total Bilirubin 0.90, AST 26, ALT 24, Alkaline Phosphatase 88, Total Protein 7.3, Albumin 2.8 L, Globulin 4.5 H, Albumin/Globulin Ratio 0.6 L 09/23/17 06:05: B-Natriuretic Peptide 965.2 H 09/23/17 06:05: Troponin I 0.311 H 09/23/17 06:54: POC Glucose 119 H Laboratory Results 09/23/17 21:04: POC Glucose 364 H 09/24/17 05:00: WBC 7.7, RBC 3.00 L, Hgb 7.7 L, Hct 27.9 L, MCV 93.0, MCH 25.7 L, MCHC 27.6 L, RDW 19.3 H, RDW Differential 63.0 H, Plt Count 202, MPV 12.1 H, Immature Gran % (Auto) 0.300, Neut % (Auto) 87.8 H, Lymph % (Auto) 9.4 L, Dodge % (Auto) 2.5, Eos % (Auto) 0.0, Baso % (Auto) 0.0, Absolute Neuts (auto) 6.8, Absolute Lymphs (auto) 0.72 L, Total Counted Not Reportable, Nucleated RBC % 1.2, Diff Path Review August, Absolute Retic 0.09 09/24/17 05:00: PT 27.7 H, INR 2.6 09/24/17 05:00: Sodium 147 H, Potassium 5.6 H, Chloride 109 H, Carbon Dioxide 28.0, Anion Gap 10, BUN 58 H, Creatinine 2.33 H, Estim Creat Clear Calc 16.35, Est GFR (MDRD) Af Amer 26 L, Est GFR (MDRD) Non-Af 21 L, BUN/Creatinine Ratio 24.9 H, Glucose 294 H, Calcium 9.1 09/24/17 06:43: POC Glucose 274 H Code Visit Inpatient E&M: 67200 Subs Hosp L3
[2017-09-24] MEDS: Pantoprazole Sodium 40 MG Tablet PO (09:13)
[2017-09-24] MEDS: Calcium Carb/Vitamin D 1 TABLET Tablet PO ×2 (09:13→17:12)
[2017-09-24] MEDS: hydrALAZINE 50 MG Tablet PO (09:13)
[2017-09-24] MEDS: Metoprolol Tartrate 25 MG Tablet 12.5 MG PO ×2 (09:14→22:11)
[2017-09-24] MEDS: Isosorbide Mononitrate 30 MG Tablet PO (09:14)
[2017-09-24] MEDS: Multivitamins,Therapeutic Tablet 1 TABLET PO (09:14)
[2017-09-24] MEDS: Nystatin Powder 15gm Bottle 1 APPLIC TOPICAL ×2 (09:15→22:17)
--- NOTE | 2017-09-24 09:29 | PN_ITS ---
Subjective: Patient has improvement in breathing. Yesterday evening Schuler catheter was placed for accurate I and O's monitoring. Patient had a big jump in creatinine , creatinine 2.3 AND K5.6. H&H low but stable. No external GI bleed but patient is on Coumadin for A. fib Vitals/I&O's: Vital Signs Temp Pulse Resp BP Pulse Ox 98.4 F 74 20 H 107/51 L 94 09/24/17 08:34 09/24/17 08:34 09/24/17 08:34 09/24/17 08:34 09/24/17 08:34 Oxygen Flow Rate (L/min) 2 Oxygen Delivery Method Nasal Cannula Weight: 198 lb 6.656 oz Body Mass Index (BMI) 34.2 Intake and Output for Last 24 Hours 09/22/17 09/23/17 09/24/17 23:59 23:59 23:59 Intake Total 850 / 850 Output Total 725 / 725 150 / 150 Balance 125 / 125 -150 / -150 General: Alert, Oriented x3, Cooperative HEENT: Atraumatic, PERRLA, EOMI, Normocephalic Neck: Supple, No JVD, Negative Carotid Bruits Lungs: Clear to auscultation, No rhonchi, No wheeze, No rales, Diminished - In bilateral lung bases Cardiovascular: Regular rate, Normal S2, No murmurs, Irregular Rate Abdomen: Bowel Sounds Present, Soft, Non Tender, Non-Distended, - - Schuler catheter Extremities: No edema, Capillary Refill Less than 3 Seconds Skin: No rashes, No breakdown Musculoskeletal: No Tenderness to Palpation of Joints or Extremities, Arthritic Changes Neurological: Cranial nerves II-XII grossly intact Psych/Mental Status: Normal Affect, Appropriate Laboratory Results 09/23/17 21:04: POC Glucose 364 H 09/24/17 05:00: WBC 7.7, RBC 3.00 L, Hgb 7.7 L, Hct 27.9 L, MCV 93.0, MCH 25.7 L , MCHC 27.6 L, RDW 19.3 H, RDW Differential 63.0 H, Plt Count 202, MPV 12.1 H, Immature Gran % (Auto) 0.300, Neut % (Auto) 87.8 H, Lymph % (Auto) 9.4 L, Evangeline % (Auto) 2.5, Eos % (Auto) 0.0, Baso % (Auto) 0.0, Absolute Neuts (auto) 6.8, Absolute Lymphs (auto) 0.72 L, Total Counted Not Reportable, Nucleated RBC % 1.2 , Diff Path Review May foll, Absolute Retic 0.09 09/24/17 05:00: PT 27.7 H, INR 2.6 09/24/17 05:00: Sodium 147 H, Potassium 5.6 H, Chloride 109 H, Carbon Dioxide 28.0, Anion Gap 10, BUN 58 H, Creatinine 2.33 H, Estim Creat Clear Calc 16.35, Est GFR (MDRD) Af Amer 26 L, Est GFR (MDRD) Non-Af 21 L, BUN/Creatinine Ratio 24.9 H, Glucose 294 H, Calcium 9.1 09/24/17 06:43: POC Glucose 274 H Current Medications Acetaminophen (Tylenol) 650 mg PO Q6H PRN PRN PRN Reason: Mild Pain (scale 0-3)/T>100.7 Last Admin: 09/24/17 00:04 Dose: 650 mg Albuterol/Ipratropium (Duoneb) 3 ml INHALATION Q4H.RT PRN PRN Reason: DYSPNEA/WHEEZING/SOB Atorvastatin Calcium (Lipitor) 40 mg PO QHS [facility] Last Admin: 09/23/17 21:08 Dose: 40 mg Calcium/Vitamin D (Os-West 500mg + D) [facility] Last Admin: 09/23/17 17:27 Dose: 1 tablet Furosemide (Lasix) 40 mg IV DAILY [facility] Hydralazine HCl (Apresoline) 50 mg PO 4X/DAY [facility] Last Admin: 09/23/17 21:09 Dose: 50 mg Insulin Detemir (Levemir (Bkc)) 30 units SC BID [facility] Last Admin: 09/23/17 21:07 Dose: 30 u Isosorbide Mononitrate (Imdur) 30 mg PO DAILY [facility] Last Admin: 09/23/17 09:11 Dose: 30 mg Magnesium Hydroxide (Milk Of Magnesia) 30 ml PO DAILY PRN PRN Reason: Constipation Methylprednisolone (Solu-Medrol) 40 mg IV Q8 [facility] Last Admin: 09/24/17 05:56 Dose: 40 mg Metoprolol Tartrate (Lopressor (Beta Rah)) 12.5 mg PO BID [facility] Last Admin: 09/23/17 21:08 Dose: 12.5 mg Mirtazapine (Remeron) 15 mg PO QHS [facility] Last Admin: 09/23/17 21:09 Dose: 15 mg Multivitamins (Multivitamin) 1 tablet PO DAILY@0800 [facility] Last Admin: 09/23/17 09:11 Dose: 1 tablet Nutritional Formula (Lactose Free) (Ensure Enlive) 120 ml PO 4X/DAY [facility] Last Admin: 09/23/17 21:08 Dose: 120 ml Nystatin (Mycostatin Powder) 1 applic TOPICAL BID [facility] PRN Reason: Protocol Last Admin: 09/23/17 21:09 Dose: 1 applicatio Pantoprazole Sodium (Protonix) 40 mg PO DAILY [facility] Last Admin: 09/23/17 09:11 Dose: 40 mg Sodium Chloride () 5 - 30 ml IV UD PRN PRN Reason: SALINE FLUSH Last Admin: 09/24/17 05:56 Dose: 20 ml Sodium Polystyrene Sulfonate (Kayexalate) 30 gm PO X1 ONE Stop: 09/24/17 08:43 Warfarin Sodium (Coumadin (Pbkc)) 3 mg PO TuTh@1700 [facility] Last Admin: 09/23/17 17:27 Dose: 3 mg Warfarin Sodium (Coumadin (Pbkc)) 6 mg PO SuMoWeFrSa@1700 [facility] Medical Necessity - Tobacco Use Smoking Status: Never smoker Assessment/Plan All Active Problems (Last Updated 08/20/17 @ 16:19 by Kate Temple) Acute respiratory failure with hypoxia (Acute) Acute on chronic combined systolic and diastolic heart failure (Acute) COPD exacerbation (Acute) Chest pain (Acute) Fall (Acute) SOB (shortness of breath) (Acute) The patient is a 82-year-old female who was admitted with acute shortness of breath no chest pressure/tightness consistent with acute hypoxic respiratory failure probably secondary to acute on chronic combined systolic congestive heart failure and COPD exacerbation. Patient is on Lasix, hydralazine, isosorbide mononitrate, metoprolol bronchodilator and Solu-Medrol. 1. Acute hypoxic respiratory failure secondary to combined systolic and diastolic heart failure COPD exacerbation: Patient is on oxygen. 2. Acute on chronic combined heart failure: As per echo in August 10, 2017, EF 50% with severe concentric LVH, segmental systolic dysfunction. Left atrium mildly enlarged. Mild to moderate TR, RVSP 46 mmHg suggestive of mild pulmonary hypertension with normal right ventricular size and systolic function. 3. Acute kidney injury on CKD stage III, exact etiology unclear but possible hemodynamic fluid shift from diuretics: Mild hyperkalemia K5.6. Kayexalate 30 g ordered. Will change the Lasix to 40 mg IV daily. UA with urine culture ordered. Denies lower urinary tract symptoms. Urine dark yellow but clear no pus flakes or blood. Nephrology consult. Fe Urea, kidney and bladder ultrasound ordered. 4. Mild elevation in troponin possible due to kidney failure, CHF exacerbation : Patient denies any chest pain. EKG done today shows sinus rhythm with frequent PVCs. No significant ST-T changes as compared to previous EKG of 2012. 5. COPD: Do not think patient is an exacerbation as no expiratory wheezing. Discontinue Solu-Medrol. 6. Paroxysmal A. fib on Coumadin: She goes frequently in and out of A. fib. INR is therapeutic. 7 multiple other comorbidities include coronary artery disease, gastric ulcer, diabetes mellitus type 2, fall and decreased functional capacity: Home medication reconciliation done. PT and OT. This note was generated with [employer] dictation software. Every effort was made to ensure accuracy, however computerized automotive engineering teacher mistakes may persist. 09/23/17 00:25: WBC 9.1, RBC 3.10 L, Hgb 7.8 L, Hct 28.1 L, MCV 90.6, MCH 25.2 L , MCHC 27.8 L, RDW 19.7 H, RDW Differential 65.3 H, Plt Count 212, MPV 10.4, Immature Gran % (Auto) 0.100, Neut % (Auto) 85.5 H, Lymph % (Auto) 7.5 L, Evangeline % (Auto) 5.9, Eos % (Auto) 0.8, Baso % (Auto) 0.2, Absolute Neuts (auto) 7.8 H, Absolute Lymphs (auto) 0.69 L, Total Counted Not Reportable, Differential Comment SCANNED, Anisocytosis 3+ 09/23/17 00:25: Sodium 146 H, Potassium 4.3, Chloride 112 H, Carbon Dioxide 31.0 , Anion Gap 3 L, BUN 32 H, Creatinine 1.47 H, Est GFR (MDRD) Af Amer 44 L, Est GFR (MDRD) Non-Af 36 L, BUN/Creatinine Ratio 21.8 H, Glucose 193 H, Calcium 8.6 , Troponin I 0.098 H 09/23/17 00:25: B-Natriuretic Peptide 911.0 H 09/23/17 03:30: B-Natriuretic Peptide 1018.6 H 09/23/17 03:30: Troponin I 0.249 H 09/23/17 03:30: PT 25.2 H, INR 2.3, APTT 33.0 09/23/17 06:05: WBC 7.4, RBC 3.06 L, Hgb 7.8 L, Hct 28.6 L, MCV 93.5, MCH 25.5 L , MCHC 27.3 L, RDW 19.6 H, RDW Differential 64.8 H, Plt Count 216, MPV 11.0, Immature Gran % (Auto) 0.300, Neut % (Auto) 79.4 H, Lymph % (Auto) 11.6 L, Evangeline % (Auto) 7.2, Eos % (Auto) 1.2, Baso % (Auto) 0.3, Absolute Neuts (auto) 5.8, Absolute Lymphs (auto) 0.85, Total Counted Not Reportable 09/23/17 06:05: Sodium 147 H, Potassium 4.1, Chloride 112 H, Carbon Dioxide 31.0 , Anion Gap 4 L, BUN 29 H, Creatinine 1.38 H, Estim Creat Clear Calc 27.61, Est GFR (MDRD) Af Amer 47 L, Est GFR (MDRD) Non-Af 39 L, BUN/Creatinine Ratio 21.0 H , Glucose 112 H, Calcium 8.3 L, Total Bilirubin 0.90, AST 26, ALT 24, Alkaline Phosphatase 88, Total Protein 7.3, Albumin 2.8 L, Globulin 4.5 H, Albumin/ Globulin Ratio 0.6 L 09/23/17 06:05: B-Natriuretic Peptide 965.2 H 09/23/17 06:05: Troponin I 0.311 H 09/23/17 06:54: POC Glucose 119 H Laboratory Results 09/23/17 21:04: POC Glucose 364 H 09/24/17 05:00: WBC 7.7, RBC 3.00 L, Hgb 7.7 L, Hct 27.9 L, MCV 93.0, MCH 25.7 L , MCHC 27.6 L, RDW 19.3 H, RDW Differential 63.0 H, Plt Count 202, MPV 12.1 H, Immature Gran % (Auto) 0.300, Neut % (Auto) 87.8 H, Lymph % (Auto) 9.4 L, Evangeline % (Auto) 2.5, Eos % (Auto) 0.0, Baso % (Auto) 0.0, Absolute Neuts (auto) 6.8, Absolute Lymphs (auto) 0.72 L, Total Counted Not Reportable, Nucleated RBC % 1.2 , Diff Path Review August, Absolute Retic 0.09 09/24/17 05:00: PT 27.7 H, INR 2.6 09/24/17 05:00: Sodium 147 H, Potassium 5.6 H, Chloride 109 H, Carbon Dioxide 28.0, Anion Gap 10, BUN 58 H, Creatinine 2.33 H, Estim Creat Clear Calc 16.35, Est GFR (MDRD) Af Amer 26 L, Est GFR (MDRD) Non-Af 21 L, BUN/Creatinine Ratio 24.9 H, Glucose 294 H, Calcium 9.1 09/24/17 06:43: POC Glucose 274 H Code Visit Inpatient E&M: 29929 Subs Hosp L3
[2017-09-24] MEDS: Sodium Polystyrene Sulfonate 15 GM/60 ML UDC 30 GM PO (10:39)
[2017-09-24 11:00] LABS: Mucous, Urine 0 SEEN /hpf (<or=2+)
--- NOTE | 2017-09-24 11:02 | PCM.CONS.R ---
Problem List (1) Acute kidney injury superimposed on chronic kidney disease Status: Acute (2) Hyperkalemia Status: Acute Consultation - Renal PCP/ Referring MD: Requesting physician: [] Primary care physician: Eliot Loja - History of Present Illness History of Present Illness: The patient is a 82 year old F with past medical history of CHF,COPD. Patient presented to the hospital on September 23 with progressive shortness of breath. X-ray shows primary edema. patient was admitted with acute respiratory failure from pulmonary edema due to CHF .patient initially needed 5 L of nasal cannula to maintain oxygen saturation more than 90%. Patient was initially diuresed with Lasix 40 mg twice a day. Patient breathing is better.she is now at 2 L/m nasal cannula. Renal team was consulted for acute kidney injury on chronic kidney disease. Patient was admitted with the creatinine 1.3 mg/dL which seems her baseline. creatinine increased today to 2.3 mg/dL. Also BMP showed potassium 5.6. Patient's diastolic blood pressure is low. no NSAIDs use. No recent IV contrast exposure. No UTIs like picture. No UA available. Review of systems:12 systems review is negative except for some shortness of breath. No chest pain. No nausea no vomiting. Appetite is fair[] - Allergies Allergies: Allergies LEANDER Inhibitors Allergy (Verified 09/22/17 23:22) Unknown - Current Medications Current Medications: Current Medications Acetaminophen (Tylenol) 650 mg PO Q6H PRN PRN PRN Reason: Mild Pain (scale 0-3)/T>100.7 Last Admin: 09/24/17 00:04 Dose: 650 mg Albuterol/Ipratropium (Duoneb) 3 ml INHALATION Q4H.RT PRN PRN Reason: DYSPNEA/WHEEZING/SOB Atorvastatin Calcium (Lipitor) 40 mg PO QHS [facility] Last Admin: 09/23/17 21:08 Dose: 40 mg Calcium/Vitamin D (Os-West 500mg + D) [facility] Last Admin: 09/24/17 09:13 Dose: 1 tablet Furosemide (Lasix) 40 mg IV DAILY [facility] Hydralazine HCl (Apresoline) 50 mg PO 4X/DAY [facility] Last Admin: 09/24/17 09:13 Dose: 50 mg Insulin Detemir (Levemir (Bkc)) 30 units SC BID [facility] Last Admin: 09/24/17 09:14 Dose: 30 u Isosorbide Mononitrate (Imdur) 30 mg PO DAILY [facility] Last Admin: 09/24/17 09:14 Dose: 30 mg Magnesium Hydroxide (Milk Of Magnesia) 30 ml PO DAILY PRN PRN Reason: Constipation Metoprolol Tartrate (Lopressor (Beta Rah)) 12.5 mg PO BID [facility] Last Admin: 09/24/17 09:14 Dose: 12.5 mg Mirtazapine (Remeron) 15 mg PO QHS [facility] Last Admin: 09/23/17 21:09 Dose: 15 mg Multivitamins (Multivitamin) 1 tablet PO DAILY@0800 [facility] Last Admin: 09/24/17 09:14 Dose: 1 tablet Nutritional Formula (Lactose Free) (Ensure Enlive) 120 ml PO 4X/DAY [facility] Last Admin: 09/24/17 09:14 Dose: 120 ml Nystatin (Mycostatin Powder) 1 applic TOPICAL BID [facility] PRN Reason: Protocol Last Admin: 09/24/17 09:15 Dose: 1 applicatio Pantoprazole Sodium (Protonix) 40 mg PO DAILY [facility] Last Admin: 09/24/17 09:13 Dose: 40 mg Sodium Chloride () 5 - 30 ml IV UD PRN PRN Reason: SALINE FLUSH Last Admin: 09/24/17 05:56 Dose: 20 ml Warfarin Sodium (Coumadin (Pbkc)) 3 mg PO TuTh@1700 [facility] Last Admin: 09/23/17 17:27 Dose: 3 mg Warfarin Sodium (Coumadin (Pbkc)) 6 mg PO SuMoWeFrSa@1700 [facility] - Past Medical History Past Medical History (Chronic Problems): Chronic Problems (Last Updated 08/20/17 @ 16:19 by Kate Temple) Afib (Chronic) Gastric ulcer (Chronic) Colon polyps (Chronic) CHF (congestive heart failure) (Chronic) CAD (coronary artery disease) (Chronic) Diabetes (Chronic) Dizziness (Chronic) Chronic coronary artery disease (Chronic) - Past Surgical History Surgical History: coronary bypass surgery, - - appendectemy, cholecystectemy, tonsil and adenoids, cabg - she cannot having any stents - Social History Smoking Status: Never smoker - Family History Maternal History Items: No pertinent history Patient Problems: Active and Suspected Problems (Last Updated 08/20/17 @ 16:19 by Kate Temple) Acute kidney injury superimposed on chronic kidney disease (Acute) Hyperkalemia (Acute) - Physical Exam General: Alert, Oriented x3 HEENT: Atraumatic Oral: Moist Mucosa Neck: Supple, No JVD Lungs: - - decreased breathing soundsover the left lower lobe. No wheezing or crackles appreciated Cardiovascular: Regular rate, Regular Rhythm, Normal S1, Normal S2 Abdomen: Bowel Sounds Present, Soft, Non Tender Extremities: No clubbing, No cyanosis, - - trace edema of lower extremities Skin: No rashes Musculoskeletal: No Tenderness to Palpation of Joints or Extremities Lymphatic: No Cervical, Supraclavicular, or Inguinal Adenopathy Neurological: Cranial nerves II-XII grossly intact, Neuro grossly intact Psych/Mental Status: Normal Affect Vital Signs Temp Pulse Resp BP Pulse Ox 98.4 F 74 20 H 107/51 L 94 09/24/17 08:34 09/24/17 09:14 09/24/17 08:34 09/24/17 08:34 09/24/17 08:34 Oxygen Flow Rate (L/min) 2 Oxygen Delivery Method Nasal Cannula Weight: 90 kg Body Mass Index (BMI) 34.2 Intake and Output for Last 24 Hours 09/22/17 09/23/17 09/24/17 23:59 23:59 23:59 Intake Total 850 / 850 Output Total 725 / 725 150 / 150 Balance 125 / 125 -150 / -150 Laboratory Tests Past 24 Hrs 09/24/17 09/24/17 09/24/17 05:00 05:00 05:00 WBC 7.7 RBC 3.00 L Hgb 7.7 L Hct 27.9 L MCV 93.0 MCH 25.7 L MCHC 27.6 L RDW 19.3 H RDW Differential 63.0 H Plt Count 202 MPV 12.1 H Immature Gran % (Auto) 0.300 Neut % (Auto) 87.8 H Lymph % (Auto) 9.4 L [place] % (Auto) 2.5 Eos % (Auto) 0.0 Baso % (Auto) 0.0 Absolute Neuts (auto) 6.8 Absolute Lymphs (auto) 0.72 L Total Counted Not Reportable Nucleated RBC % 1.2 Diff Path Review May foll Absolute Retic 0.09 PT 27.7 H INR 2.6 Sodium 147 H Potassium 5.6 H Chloride 109 H Carbon Dioxide 28.0 Anion Gap 10 BUN 58 H Creatinine 2.33 H Estim Creat Clear Calc 16.35 Est GFR (MDRD) Af Amer 26 L Est GFR (MDRD) Non-Af 21 L BUN/Creatinine Ratio 24.9 H Glucose 294 H Calcium 9.1 Urine Color Urine Clarity Urine pH Ur Specific [place] Urine Protein Urine Glucose (UA) Urine Ketones Urine Occult Blood Urine Nitrite Urine Bilirubin Urine Urobilinogen Ur Leukocyte Esterase Urine RBC Urine WBC Ur Squamous Epith Cells Urine Bacteria Urine Mucus Urine Creatinine Urine Urea Nitrogen 09/24/17 09/24/17 09/24/17 10:45 10:45 10:45 WBC RBC Hgb Hct MCV MCH MCHC RDW RDW Differential Plt Count MPV Immature Gran % (Auto) Neut % (Auto) Lymph % (Auto) [place] % (Auto) Eos % (Auto) Baso % (Auto) Absolute Neuts (auto) Absolute Lymphs (auto) Total Counted Nucleated RBC % Diff Path Review Absolute Retic PT INR Sodium Potassium Pending Chloride Carbon Dioxide Anion Gap BUN Creatinine Estim Creat Clear Calc Est GFR (MDRD) Af Amer Est GFR (MDRD) Non-Af BUN/Creatinine Ratio Glucose Calcium Urine Color Urine Clarity Urine pH Ur Specific [place] Urine Protein Urine Glucose (UA) Urine Ketones Urine Occult Blood Urine Nitrite Urine Bilirubin Urine Urobilinogen Ur Leukocyte Esterase Urine RBC Urine WBC Ur Squamous Epith Cells Urine Bacteria Urine Mucus Urine Creatinine Pending Urine Urea Nitrogen Pending 09/24/17 10:45 WBC RBC Hgb Hct MCV MCH MCHC RDW RDW Differential Plt Count MPV Immature Gran % (Auto) Neut % (Auto) Lymph % (Auto) [place] % (Auto) Eos % (Auto) Baso % (Auto) Absolute Neuts (auto) Absolute Lymphs (auto) Total Counted Nucleated RBC % Diff Path Review Absolute Retic PT INR Sodium Potassium Chloride Carbon Dioxide Anion Gap BUN Creatinine Estim Creat Clear Calc Est GFR (MDRD) Af Amer Est GFR (MDRD) Non-Af BUN/Creatinine Ratio Glucose Calcium Urine Color Pending Urine Clarity Pending Urine pH Pending Ur Specific [place] Pending Urine Protein Pending Urine Glucose (UA) Pending Urine Ketones Pending Urine Occult Blood Pending Urine Nitrite Pending Urine Bilirubin Pending Urine Urobilinogen Pending Ur Leukocyte Esterase Pending Urine RBC Pending Urine WBC Pending Ur Squamous Epith Cells Pending Urine Bacteria Pending Urine Mucus Pending Urine Creatinine Urine Urea Nitrogen POC Glucose 09/24/17 09/23/17 06:43 21:04 POC Glucose 274 H 364 H Assessment/Plan All Active Problems (Last Updated 08/20/17 @ 16:19 by Kate Temple) Acute kidney injury superimposed on chronic kidney disease (Acute) Hyperkalemia (Acute) Acute respiratory failure with hypoxia (Acute) Acute on chronic combined systolic and diastolic heart failure (Acute) COPD exacerbation (Acute) Chest pain (Acute) Fall (Acute) SOB (shortness of breath) (Acute) 1-acute kidney injury on chronic kidney disease. Baseline creatinine seems around 1.3milligrams per deciliter. Acute kidney injury is most probably prerenal from hepatorenal syndrome due to primary hypertension and diuresis. I agree with decreasing the dose of Lasix to 40 mg once a day. I will order bladder scan to rule out any postrenal etiology. we will do renal ultrasound.. we will do Fr Urea. I will decrease hydralazine dose to 25 3 times a day due to low diastolic blood pressure No need for renal replacement therapy. i'll continue to monitor the kidney function test along with urine output. Avoid NSAIDs and ARB and all nephrotoxic so now. 2-hyperkalemia: most probably related to acute kidney injury. I agree with Kayexalate 30 g 1 time. please repeat potassium level around noon 3-acute hypoxic respiratory failure due to pulmonary edema from CHF. Improved with diuresis. Patient back to a BaselineO2 demand. decrease Lasix dose as above-. 4-CHF decompensation: improved with diuresis. BNP is decreasing .Heart rate is well-controlled. Continue O2 support to keep oxygen saturation more than 92%. 5-anemia: hemoglobin around 7.7. Please do iron profile study. RBCs transfusion when hemoglobin A1c that than 7. I'll defer that to the primary service. Thank you for the consult.renal team will continue to follow. Plan of care was discussed with Dr. Mckeon. Ruben Quiroga MD [phone]
--- NOTE | 2017-09-24 11:13 | CON.PCM_ITS ---
Problem List (1) Acute kidney injury superimposed on chronic kidney disease Status: Acute (2) Hyperkalemia Status: Acute Consultation - Renal PCP/ Referring MD: Requesting physician: [] Primary care physician: Eliot Loja - History of Present Illness History of Present Illness: The patient is a 82 year old F with past medical history of CHF,COPD. Patient presented to the hospital on September 23 with progressive shortness of breath. X- ray shows primary edema. patient was admitted with acute respiratory failure from pulmonary edema due to CHF .patient initially needed 5 L of nasal cannula to maintain oxygen saturation more than 90%. Patient was initially diuresed with Lasix 40 mg twice a day. Patient breathing is better.she is now at 2 L/m nasal cannula. Renal team was consulted for acute kidney injury on chronic kidney disease. Patient was admitted with the creatinine 1.3 mg/dL which seems her baseline. creatinine increased today to 2.3 mg/dL. Also BMP showed potassium 5.6. Patient' s diastolic blood pressure is low. no NSAIDs use. No recent IV contrast exposure. No UTIs like picture. No UA available. Review of systems:12 systems review is negative except for some shortness of breath. No chest pain. No nausea no vomiting. Appetite is fair[] - Allergies Allergies: Allergies LEANDER Inhibitors Allergy (Verified 09/22/17 23:22) Unknown - Current Medications Current Medications: Current Medications Acetaminophen (Tylenol) 650 mg PO Q6H PRN PRN PRN Reason: Mild Pain (scale 0-3)/T>100.7 Last Admin: 09/24/17 00:04 Dose: 650 mg Albuterol/Ipratropium (Duoneb) 3 ml INHALATION Q4H.RT PRN PRN Reason: DYSPNEA/WHEEZING/SOB Atorvastatin Calcium (Lipitor) 40 mg PO QHS [facility] Last Admin: 09/23/17 21:08 Dose: 40 mg Calcium/Vitamin D (Os-West 500mg + D) [facility] Last Admin: 09/24/17 09:13 Dose: 1 tablet Furosemide (Lasix) 40 mg IV DAILY [facility] Hydralazine HCl (Apresoline) 50 mg PO 4X/DAY [facility] Last Admin: 09/24/17 09:13 Dose: 50 mg Insulin Detemir (Levemir (Bkc)) 30 units SC BID [facility] Last Admin: 09/24/17 09:14 Dose: 30 u Isosorbide Mononitrate (Imdur) 30 mg PO DAILY [facility] Last Admin: 09/24/17 09:14 Dose: 30 mg Magnesium Hydroxide (Milk Of Magnesia) 30 ml PO DAILY PRN PRN Reason: Constipation Metoprolol Tartrate (Lopressor (Beta Rah)) 12.5 mg PO BID [facility] Last Admin: 09/24/17 09:14 Dose: 12.5 mg Mirtazapine (Remeron) 15 mg PO QHS [facility] Last Admin: 09/23/17 21:09 Dose: 15 mg Multivitamins (Multivitamin) 1 tablet PO DAILY@0800 [facility] Last Admin: 09/24/17 09:14 Dose: 1 tablet Nutritional Formula (Lactose Free) (Ensure Enlive) 120 ml PO 4X/DAY [facility] Last Admin: 09/24/17 09:14 Dose: 120 ml Nystatin (Mycostatin Powder) 1 applic TOPICAL BID [facility] PRN Reason: Protocol Last Admin: 09/24/17 09:15 Dose: 1 applicatio Pantoprazole Sodium (Protonix) 40 mg PO DAILY [facility] Last Admin: 09/24/17 09:13 Dose: 40 mg Sodium Chloride () 5 - 30 ml IV UD PRN PRN Reason: SALINE FLUSH Last Admin: 09/24/17 05:56 Dose: 20 ml Warfarin Sodium (Coumadin (Pbkc)) 3 mg PO TuTh@1700 [facility] Last Admin: 09/23/17 17:27 Dose: 3 mg Warfarin Sodium (Coumadin (Pbkc)) 6 mg PO SuMoWeFrSa@1700 [facility] - Past Medical History Past Medical History (Chronic Problems): Chronic Problems (Last Updated 08/20/17 @ 16:19 by Kate Temple) Afib (Chronic) Gastric ulcer (Chronic) Colon polyps (Chronic) CHF (congestive heart failure) (Chronic) CAD (coronary artery disease) (Chronic) Diabetes (Chronic) Dizziness (Chronic) Chronic coronary artery disease (Chronic) - Past Surgical History Surgical History: coronary bypass surgery, - - appendectemy, cholecystectemy, tonsil and adenoids, cabg - she cannot having any stents - Social History Smoking Status: Never smoker - Family History Maternal History Items: No pertinent history Patient Problems: Active and Suspected Problems (Last Updated 08/20/17 @ 16:19 by Kate Temple) Acute kidney injury superimposed on chronic kidney disease (Acute) Hyperkalemia (Acute) - Physical Exam General: Alert, Oriented x3 HEENT: Atraumatic Oral: Moist Mucosa Neck: Supple, No JVD Lungs: - - decreased breathing soundsover the left lower lobe. No wheezing or crackles appreciated Cardiovascular: Regular rate, Regular Rhythm, Normal S1, Normal S2 Abdomen: Bowel Sounds Present, Soft, Non Tender Extremities: No clubbing, No cyanosis, - - trace edema of lower extremities Skin: No rashes Musculoskeletal: No Tenderness to Palpation of Joints or Extremities Lymphatic: No Cervical, Supraclavicular, or Inguinal Adenopathy Neurological: Cranial nerves II-XII grossly intact, Neuro grossly intact Psych/Mental Status: Normal Affect Vital Signs Temp Pulse Resp BP Pulse Ox 98.4 F 74 20 H 107/51 L 94 09/24/17 08:34 09/24/17 09:14 09/24/17 08:34 09/24/17 08:34 09/24/17 08:34 Oxygen Flow Rate (L/min) 2 Oxygen Delivery Method Nasal Cannula Weight: 90 kg Body Mass Index (BMI) 34.2 Intake and Output for Last 24 Hours 09/22/17 09/23/17 09/24/17 23:59 23:59 23:59 Intake Total 850 / 850 Output Total 725 / 725 150 / 150 Balance 125 / 125 -150 / -150 Laboratory Tests Past 24 Hrs 09/24/17 09/24/17 09/24/17 05:00 05:00 05:00 WBC 7.7 RBC 3.00 L Hgb 7.7 L Hct 27.9 L MCV 93.0 MCH 25.7 L MCHC 27.6 L RDW 19.3 H RDW Differential 63.0 H Plt Count 202 MPV 12.1 H Immature Gran % (Auto) 0.300 Neut % (Auto) 87.8 H Lymph % (Auto) 9.4 L [place] % (Auto) 2.5 Eos % (Auto) 0.0 Baso % (Auto) 0.0 Absolute Neuts (auto) 6.8 Absolute Lymphs (auto) 0.72 L Total Counted Not Reportable Nucleated RBC % 1.2 Diff Path Review May foll Absolute Retic 0.09 PT 27.7 H INR 2.6 Sodium 147 H Potassium 5.6 H Chloride 109 H Carbon Dioxide 28.0 Anion Gap 10 BUN 58 H Creatinine 2.33 H Estim Creat Clear Calc 16.35 Est GFR (MDRD) Af Amer 26 L Est GFR (MDRD) Non-Af 21 L BUN/Creatinine Ratio 24.9 H Glucose 294 H Calcium 9.1 Urine Color Urine Clarity Urine pH Ur Specific [place] Urine Protein Urine Glucose (UA) Urine Ketones Urine Occult Blood Urine Nitrite Urine Bilirubin Urine Urobilinogen Ur Leukocyte Esterase Urine RBC Urine WBC Ur Squamous Epith Cells Urine Bacteria Urine Mucus Urine Creatinine Urine Urea Nitrogen 09/24/17 09/24/17 09/24/17 10:45 10:45 10:45 WBC RBC Hgb Hct MCV MCH MCHC RDW RDW Differential Plt Count MPV Immature Gran % (Auto) Neut % (Auto) Lymph % (Auto) [place] % (Auto) Eos % (Auto) Baso % (Auto) Absolute Neuts (auto) Absolute Lymphs (auto) Total Counted Nucleated RBC % Diff Path Review Absolute Retic PT INR Sodium Potassium Pending Chloride Carbon Dioxide Anion Gap BUN Creatinine Estim Creat Clear Calc Est GFR (MDRD) Af Amer Est GFR (MDRD) Non-Af BUN/Creatinine Ratio Glucose Calcium Urine Color Urine Clarity Urine pH Ur Specific [place] Urine Protein Urine Glucose (UA) Urine Ketones Urine Occult Blood Urine Nitrite Urine Bilirubin Urine Urobilinogen Ur Leukocyte Esterase Urine RBC Urine WBC Ur Squamous Epith Cells Urine Bacteria Urine Mucus Urine Creatinine Pending Urine Urea Nitrogen Pending 09/24/17 10:45 WBC RBC Hgb Hct MCV MCH MCHC RDW RDW Differential Plt Count MPV Immature Gran % (Auto) Neut % (Auto) Lymph % (Auto) [place] % (Auto) Eos % (Auto) Baso % (Auto) Absolute Neuts (auto) Absolute Lymphs (auto) Total Counted Nucleated RBC % Diff Path Review Absolute Retic PT INR Sodium Potassium Chloride Carbon Dioxide Anion Gap BUN Creatinine Estim Creat Clear Calc Est GFR (MDRD) Af Amer Est GFR (MDRD) Non-Af BUN/Creatinine Ratio Glucose Calcium Urine Color Pending Urine Clarity Pending Urine pH Pending Ur Specific [place] Pending Urine Protein Pending Urine Glucose (UA) Pending Urine Ketones Pending Urine Occult Blood Pending Urine Nitrite Pending Urine Bilirubin Pending Urine Urobilinogen Pending Ur Leukocyte Esterase Pending Urine RBC Pending Urine WBC Pending Ur Squamous Epith Cells Pending Urine Bacteria Pending Urine Mucus Pending Urine Creatinine Urine Urea Nitrogen POC Glucose 09/24/17 09/23/17 06:43 21:04 POC Glucose 274 H 364 H Assessment/Plan All Active Problems (Last Updated 08/20/17 @ 16:19 by Kate Temple) Acute kidney injury superimposed on chronic kidney disease (Acute) Hyperkalemia (Acute) Acute respiratory failure with hypoxia (Acute) Acute on chronic combined systolic and diastolic heart failure (Acute) COPD exacerbation (Acute) Chest pain (Acute) Fall (Acute) SOB (shortness of breath) (Acute) 1-acute kidney injury on chronic kidney disease. Baseline creatinine seems around 1.3milligrams per deciliter. Acute kidney injury is most probably prerenal from hepatorenal syndrome due to primary hypertension and diuresis. I agree with decreasing the dose of Lasix to 40 mg once a day. I will order bladder scan to rule out any postrenal etiology. we will do renal ultrasound.. we will do Fr Urea. I will decrease hydralazine dose to 25 3 times a day due to low diastolic blood pressure No need for renal replacement therapy. i'll continue to monitor the kidney function test along with urine output. Avoid NSAIDs and ARB and all nephrotoxic so now. 2-hyperkalemia: most probably related to acute kidney injury. I agree with Kayexalate 30 g 1 time. please repeat potassium level around noon 3-acute hypoxic respiratory failure due to pulmonary edema from CHF. Improved with diuresis. Patient back to a BaselineO2 demand. decrease Lasix dose as above-. 4-CHF decompensation: improved with diuresis. BNP is decreasing .Heart rate is well-controlled. Continue O2 support to keep oxygen saturation more than 92%. 5-anemia: hemoglobin around 7.7. Please do iron profile study. RBCs transfusion when hemoglobin A1c that than 7. I'll defer that to the primary service. Thank you for the consult.renal team will continue to follow. Plan of care was discussed with Dr. Mckeon. Ruben Quiroga MD [phone]
[2017-09-24 11:17] LABS: Potassium 5.6 mmol/L (3.5-5.1)
[2017-09-24 11:21] LABS: Urea Nitrogen, Urine 572 mg/dL (NO RANGE EST.)
[2017-09-24 12:27] LABS: Color, Urine Yellow (Yellow); Glucose, Dipstick Normal (Normal); Ketone-Dipstick 5 mg/dl (Negative); Leukocyte Esterase-Dipstick 500 /ul (Negative); Nitrite-Dipstick Negative (Negative); Occult Blood-Urine 50 /ul (Negative); Protein-Dipstick 100 mg/dl (Negative); Urine Bilirubin Dipstick Negative (Negative); Urine Clarity Sl. Cloudy (Clear); Urine Urobilinogen 1 mg/dl (Normal)
[2017-09-24 12:32] LABS: Bacteria 1+ /hpf (None Seen); Red Blood Cells-Urine 0-5 SEEN /hpf (0-5); Squamous Epithelial Cells - UA 0-5 SEEN /hpf (5-10); White Blood Cells 25-50 SEEN /hpf (0-5)
[2017-09-24] MEDS: hydrALAZINE 25 MG Tablet PO ×2 (13:44→22:12)
[2017-09-24 13:55] LABS: Pathologist Review Reviewed
[2017-09-24] MEDS: Furosemide 40 MG/4 ML Vial IV (17:12)
[2017-09-24] MEDS: Atorvastatin Calcium 40 MG Tablet PO (22:11)
[2017-09-24] MEDS: Mirtazapine 15 MG Tablet PO (22:12)
[2017-09-24 22:41] LABS: Bedside Glucose 349 mg/dL (70-110)
[2017-09-25] VITALS (16 sets, daily range): BP systolic 126–156; BP diastolic 56–83; PULSE 62–70; RESP 18–20; TEMP 36.6–36.9; O2SAT 94–96
[2017-09-25 06:37] LABS: International Normalized Ratio 2.7; Prothrombin Time (Protime)PT. 28.7 SECONDS (11.7-14.9)
[2017-09-25 06:40] LABS: Anion Gap 6 (5-15); BUN 70 mg/dL (7-18); Calcium,Total 8.5 mg/dL (8.5-10.1); Chloride 109 mmol/L (98-107); EST Glomerular Filtration Rate 20 mL/min (>60); Est Glom Filt Rate - Afr Amer 24 mL/min (>60); Estimated Creatinine Clearance 15.24 ml/min; Glucose 167 mg/dL (74-106); Potassium 4.2 mmol/L (3.5-5.1); Sodium Level 146 mmol/L (136-145)
[2017-09-25] MEDS: hydrALAZINE 25 MG Tablet PO ×3 (06:46→22:03)
[2017-09-25 07:20] LABS: Bedside Glucose 174 mg/dL (70-110)
[2017-09-25 07:34] LABS: Hematocrit 27.6 % (37-47); Hemoglobin 7.6 g/dl (12.0-15.0); Mean Corp Hgb Conc 27.5 g/gl (32-36); Mean Corpuscular Hgb 24.8 pg (27.0-32.0); Mean Corpuscular Volume 90.2 fL (81-99); RBC Distribution Width CV 19.4 % (11.6-14.6); Red Blood Count 3.06 M/mm3 (4.2-5.4); White Blood Count 12.4 K/mm3 (4.4-11.0)
[2017-09-25 07:35] LABS: Absolute Lymphocyte Count 1.16 X10^3/ul (0.83-4.51); Absolute Neutrophil Count 10.2 X10^3/uL (2.0-7.7); Absolute Nucleated RBC Count 0.12 10^3/uL (0-5); Basophil# 0.01 X10^3/uL; Basophil% 0.1 % (0-1); Eosinophil# 0.01 X10^3/uL; Eosinophils% 0.1 % (0-5); Lymphocyte # 1.16 X10^3/ul (4.0); Lymphocyte % 9.3 % (19-41); Mean Platelet Vol. 11.6 fl (6.2-12.0); Monocyte# 1.02 X10^3/uL; Monocyte% 8.2 % (0-10); Neutrophil % 82.2 % (47-70); POSITIVE COUNT NO; POSITIVE DIFFERENTIAL NO; POSITIVE MORPHOLOGY NO; Platelet Count 215 K/mm3 (150-450); RBC Distribution Width SD 63.5 fl (35.1-43.9)
[2017-09-25] MEDS: Multivitamins,Therapeutic Tablet 1 TABLET PO (09:39)
[2017-09-25] MEDS: Isosorbide Mononitrate 30 MG Tablet PO (09:39)
[2017-09-25] MEDS: Furosemide 40 MG/4 ML Vial IV (09:39)
[2017-09-25] MEDS: Calcium Carb/Vitamin D 1 TABLET Tablet PO ×2 (09:39→16:31)
[2017-09-25] MEDS: Nystatin Powder 15gm Bottle 1 APPLIC TOPICAL ×2 (09:40→22:03)
[2017-09-25] MEDS: Metoprolol Tartrate 25 MG Tablet 12.5 MG PO ×2 (09:40→22:04)
[2017-09-25] MEDS: Pantoprazole Sodium 40 MG Tablet PO (09:41)
[2017-09-25] MEDS: 0.9% NaCl Peripheral Flush Adult/Peds IV (09:48)
--- NOTE | 2017-09-25 10:03 | PCM.PN.HOSP ---
Patient Problems: Active and Suspected Problems (Last Updated 08/20/17 @ 16:19 by Kate Temple) Acute kidney injury superimposed on chronic kidney disease (Acute) Hyperkalemia (Acute) Subjective: Patient is still short of breath but better than yesterday; although she does not feel shortness of breath. She had good urine output with Lasix. Pulse ox 94% on 2 L of oxygen. Patient sitting on the recliner. Objective: Nonoliguric LANDRY on CKD. About 625 ML Urine today Vitals/I&O's: Vital Signs Temp Pulse Resp BP Pulse Ox 98.0 F 63 20 H 136/61 H 94 09/25/17 04:05 09/25/17 09:40 09/25/17 04:05 09/25/17 04:05 09/25/17 07:38 Oxygen Flow Rate (L/min) 2 Oxygen Delivery Method Nasal Cannula Weight: 197 lb 1.492 oz Body Mass Index (BMI) 34.2 Intake and Output for Last 24 Hours 09/23/17 09/24/17 09/25/17 23:59 23:59 23:59 Intake Total 850 / 850 1170 / 1170 220 / 220 Output Total 725 / 725 425 / 425 625 / 625 Balance 125 / 125 745 / 745 -405 / -405 General: Alert, Oriented x3, Cooperative HEENT: Atraumatic, PERRLA, EOMI, Normocephalic Neck: Supple, No JVD, Negative Carotid Bruits Lungs: Diminished, Rhonchi, Short of Breath Cardiovascular: Normal S1, Normal S2, Irregular Rate Abdomen: Bowel Sounds Present, Soft, Non Tender, Non-Distended Extremities: Capillary Refill Less than 3 Seconds, Edema Skin: No rashes, No breakdown Musculoskeletal: No Tenderness to Palpation of Joints or Extremities Neurological: Cranial nerves II-XII grossly intact Psych/Mental Status: Normal Affect, Appropriate Laboratory Results 09/24/17 05:00: Diff Path Review Reviewed 09/24/17 10:45: Potassium 5.6 H 09/24/17 10:45: Urine Creatinine 141.00 09/24/17 10:45: Urine Urea Nitrogen 572 09/24/17 10:45: Urine Color Yellow, Urine Clarity Sl. Cloudy, Urine pH 5.0, Ur Specific [place] 1.020, Urine Protein 100 H, Urine Glucose (UA) Normal, Urine Ketones 5 H, Urine Occult Blood 50 H, Urine Nitrite Negative, Urine Bilirubin Negative, Urine Urobilinogen 1 H, Ur Leukocyte Esterase 500 H, Urine RBC 0-5 SEEN, Urine WBC 25-50 SEEN, Ur Squamous Epith Cells 0-5 SEEN, Urine Bacteria 1+, Urine Mucus 0 SEEN 09/24/17 22:01: POC Glucose 349 H 09/25/17 06:00: WBC 12.4 H, RBC 3.06 L, Hgb 7.6 L, Hct 27.6 L, MCV 90.2, MCH 24.8 L, MCHC 27.5 L, RDW 19.4 H, RDW Differential 63.5 H, Plt Count 215, MPV 11.6, Immature Gran % (Auto) 0.100, Neut % (Auto) 82.2 H, Lymph % (Auto) 9.3 L, [place] % (Auto) 8.2, Eos % (Auto) 0.1, Baso % (Auto) 0.1, Absolute Neuts (auto) 10.2 H, Absolute Lymphs (auto) 1.16, Total Counted Not Reportable, Nucleated RBC % 1.0, Diff Path Review August, Absolute Retic 0.12 09/25/17 06:00: PT 28.7 H, INR 2.7 09/25/17 06:00: Sodium 146 H, Potassium 4.2, Chloride 109 H, Carbon Dioxide 31.0, Anion Gap 6, BUN 70 H, Creatinine 2.50 H, Estim Creat Clear Calc 15.24, Est GFR (MDRD) Af Amer 24 L, Est GFR (MDRD) Non-Af 20 L, BUN/Creatinine Ratio 28.0 H, Glucose 167 H, Calcium 8.5 09/25/17 06:41: POC Glucose 174 H Current Medications Acetaminophen (Tylenol) 650 mg PO Q6H PRN PRN PRN Reason: Mild Pain (scale 0-3)/T>100.7 Last Admin: 09/24/17 00:04 Dose: 650 mg Albuterol/Ipratropium (Duoneb) 3 ml INHALATION Q4H.RT PRN PRN Reason: DYSPNEA/WHEEZING/SOB Atorvastatin Calcium (Lipitor) 40 mg PO QHS [facility] Last Admin: 09/24/17 22:11 Dose: 40 mg Calcium/Vitamin D (Os-West 500mg + D) 1 tablet PO BIDCM [facility] Last Admin: 09/25/17 09:39 Dose: 1 tablet Furosemide (Lasix) 40 mg IV DAILY [facility] Last Admin: 09/25/17 09:39 Dose: 40 mg Hydralazine HCl (Apresoline) 25 mg PO TID [facility] Last Admin: 09/25/17 06:46 Dose: 25 mg Insulin Detemir (Levemir (Bkc)) 30 units SC BID [facility] Last Admin: 09/25/17 09:45 Dose: 30 u Isosorbide Mononitrate (Imdur) 30 mg PO DAILY [facility] Last Admin: 09/25/17 09:39 Dose: 30 mg Magnesium Hydroxide (Milk Of Magnesia) 30 ml PO DAILY PRN PRN Reason: Constipation Metoprolol Tartrate (Lopressor (Beta Rah)) 12.5 mg PO BID [facility] Last Admin: 09/25/17 09:40 Dose: 12.5 mg Mirtazapine (Remeron) 15 mg PO QHS [facility] Last Admin: 09/24/17 22:12 Dose: 15 mg Multivitamins (Multivitamin) 1 tablet PO DAILY@0800 [facility] Last Admin: 09/25/17 09:39 Dose: 1 tablet Nystatin (Mycostatin Powder) 1 applic TOPICAL BID [facility] PRN Reason: Protocol Last Admin: 09/25/17 09:40 Dose: 1 applicatio Pantoprazole Sodium (Protonix) 40 mg PO DAILY [facility] Last Admin: 09/25/17 09:41 Dose: 40 mg Sodium Chloride () 5 - 30 ml IV UD PRN PRN Reason: SALINE FLUSH Last Admin: 09/25/17 09:48 Dose: 10 ml Warfarin Sodium (Coumadin (Pbkc)) 3 mg PO TuTh@1700 [facility] Last Admin: 09/23/17 17:27 Dose: 3 mg Warfarin Sodium (Coumadin (Pbkc)) 6 mg PO SuMoWeFrSa@1700 [facility] Medical Necessity - Tobacco Use Smoking Status: Never smoker Assessment/Plan All Active Problems (Last Updated 08/20/17 @ 16:19 by Kate Temple) Acute kidney injury superimposed on chronic kidney disease (Acute) Hyperkalemia (Acute) Acute respiratory failure with hypoxia (Acute) Acute on chronic combined systolic and diastolic heart failure (Acute) COPD exacerbation (Acute) Chest pain (Acute) Fall (Acute) SOB (shortness of breath) (Acute) The patient is a 82-year-old female who was admitted with acute shortness of breath no chest pressure/tightness consistent with acute hypoxic respiratory failure probably secondary to acute on chronic combined systolic congestive heart failure and COPD exacerbation. Patient is on Lasix, hydralazine, isosorbide mononitrate, metoprolol bronchodilator and Solu-Medrol. 1. Acute hypoxic respiratory failure secondary to combined systolic and diastolic heart failure COPD exacerbation: Patient is on 2 L of oxygen. 2. Acute on chronic combined systolic and diastolic heart failure: As per echo in August 10, 2017, EF 50% with severe concentric LVH, segmental systolic dysfunction. Left atrium mildly enlarged. Mild to moderate TR, RVSP 46 mmHg suggestive of mild pulmonary hypertension with normal right ventricular size and systolic function. 3. Acute kidney injury on CKD stage III, exact etiology unclear but possible hemodynamic fluid shift from diuretics: Mild hyperkalemia K5.6. Kayexalate 30 g ordered. Will change the Lasix to 40 mg IV daily. Urine culture does not show growth. Denies lower urinary tract symptoms. UTI ruled out. Urine dark yellow but clear no pus flakes or blood. Nephrology consult viewed and appreciated. Discussed with the proof reader. Fe Urea 16%, kidneys ultrasound unremarkable with no hydronephrosis or obstructive uropathy. Bladder is reported as incompletely distended with Schuler catheter present 4. Mild elevation in troponin possible due to kidney failure, CHF exacerbation: Patient denies any chest pain. EKG done today shows sinus rhythm with frequent PVCs. No significant ST-T changes as compared to previous EKG of 09/23/2012. 5. COPD: Do not think patient is an exacerbation as no expiratory wheezing. Discontinue Solu-Medrol. 6. Paroxysmal A. fib on Coumadin: She goes frequently in and out of A. fib. INR is therapeutic. 7 multiple other comorbidities include coronary artery disease, gastric ulcer, diabetes mellitus type 2, fall and decreased functional capacity: Home medication reconciliation done. PT and OT. This note was generated with [employer] dictation software. Every effort was made to ensure accuracy, however computerized test automation architect mistakes may persist. Microbiology Past 72 Hours 09/24/17 10:45 Urine Catheter - Schuler Urine Culture - Preliminary Culture exhibits no growth. Laboratory Results 09/24/17 05:00: Diff Path Review Reviewed 09/24/17 22:01: POC Glucose 349 H 09/25/17 06:00: WBC 12.4 H, RBC 3.06 L, Hgb 7.6 L, Hct 27.6 L, MCV 90.2, MCH 24.8 L, MCHC 27.5 L, RDW 19.4 H, RDW Differential 63.5 H, Plt Count 215, MPV 11.6, Immature Gran % (Auto) 0.100, Neut % (Auto) 82.2 H, Lymph % (Auto) 9.3 L, [place] % (Auto) 8.2, Eos % (Auto) 0.1, Baso % (Auto) 0.1, Absolute Neuts (auto) 10.2 H, Absolute Lymphs (auto) 1.16, Total Counted Not Reportable, Nucleated RBC % 1.0, Diff Path Review Reviewed, Absolute Retic 0.12 09/25/17 06:00: PT 28.7 H, INR 2.7 09/25/17 06:00: Sodium 146 H, Potassium 4.2, Chloride 109 H, Carbon Dioxide 31.0, Anion Gap 6, BUN 70 H, Creatinine 2.50 H, Estim Creat Clear Calc 15.24, Est GFR (MDRD) Af Amer 24 L, Est GFR (MDRD) Non-Af 20 L, BUN/Creatinine Ratio 28.0 H, Glucose 167 H, Calcium 8.5 09/25/17 06:41: POC Glucose 174 H 09/25/17 11:15: POC Glucose 201 H Clinical Impression(s) from Imaging Studies Chest X-Ray 09/23/17 00:19 IMPRESSION: Bibasilar and bilateral perihilar alveolar disease. Chest X-Ray 09/23/17 08:22 IMPRESSION: Findings are suggestive of pulmonary edema or multifocal pneumonia. Renal Ultrasound 09/24/17 09:03 IMPRESSION: No hydronephrosis identified. Active Medications Acetaminophen (Tylenol) 650 mg PO Q6H PRN PRN PRN Reason: Mild Pain (scale 0-3)/T>100.7 Last Admin: 09/24/17 00:04 Dose: 650 mg Albuterol/Ipratropium (Duoneb) 3 ml INHALATION Q4H.RT PRN PRN Reason: DYSPNEA/WHEEZING/SOB Atorvastatin Calcium (Lipitor) 40 mg PO QHS [facility] Last Admin: 09/24/17 22:11 Dose: 40 mg Calcium/Vitamin D (Os-West 500mg + D) [facility] Last Admin: 09/25/17 09:39 Dose: 1 tablet Furosemide (Lasix) 40 mg IV DAILY [facility] Last Admin: 09/25/17 09:39 Dose: 40 mg Hydralazine HCl (Apresoline) 25 mg PO TID [facility] Last Admin: 09/25/17 06:46 Dose: 25 mg Insulin Detemir (Levemir (Bkc)) 30 units SC BID [facility] Last Admin: 09/25/17 09:45 Dose: 30 u Isosorbide Mononitrate (Imdur) 30 mg PO DAILY [facility] Last Admin: 09/25/17 09:39 Dose: 30 mg Magnesium Hydroxide (Milk Of Magnesia) 30 ml PO DAILY PRN PRN Reason: Constipation Metoprolol Tartrate (Lopressor (Beta Rah)) 12.5 mg PO BID [facility] Last Admin: 09/25/17 09:40 Dose: 12.5 mg Mirtazapine (Remeron) 15 mg PO QHS [facility] Last Admin: 09/24/17 22:12 Dose: 15 mg Multivitamins (Multivitamin) 1 tablet PO DAILY@0800 [facility] Last Admin: 09/25/17 09:39 Dose: 1 tablet Nystatin (Mycostatin Powder) 1 applic TOPICAL BID [facility] PRN Reason: Protocol Last Admin: 09/25/17 09:40 Dose: 1 applicatio Pantoprazole Sodium (Protonix) 40 mg PO DAILY [facility] Last Admin: 09/25/17 09:41 Dose: 40 mg Sodium Chloride () 5 - 30 ml IV UD PRN PRN Reason: SALINE FLUSH Last Admin: 09/25/17 09:48 Dose: 10 ml Warfarin Sodium (Coumadin (Pbkc)) 3 mg PO TuTh@1700 [facility] Last Admin: 09/23/17 17:27 Dose: 3 mg Warfarin Sodium (Coumadin (Pbkc)) 6 mg PO SuMoWeFrSa@1700 [facility] Code Visit Inpatient E&M: 00178 [facility] Hosp L3
--- NOTE | 2017-09-25 10:07 | PN_ITS ---
Patient Problems: Active and Suspected Problems (Last Updated 08/20/17 @ 16:19 by Kate Temple) Acute kidney injury superimposed on chronic kidney disease (Acute) Hyperkalemia (Acute) Subjective: Patient is still short of breath but better than yesterday; although she does not feel shortness of breath. She had good urine output with Lasix. Pulse ox 94% on 2 L of oxygen. Patient sitting on the recliner. Objective: Nonoliguric LANDRY on CKD. About 625 ML Urine today Vitals/I&O's: Vital Signs Temp Pulse Resp BP Pulse Ox 98.0 F 63 20 H 136/61 H 94 09/25/17 04:05 09/25/17 09:40 09/25/17 04:05 09/25/17 04:05 09/25/17 07:38 Oxygen Flow Rate (L/min) 2 Oxygen Delivery Method Nasal Cannula Weight: 197 lb 1.492 oz Body Mass Index (BMI) 34.2 Intake and Output for Last 24 Hours 09/23/17 09/24/17 09/25/17 23:59 23:59 23:59 Intake Total 850 / 850 1170 / 1170 220 / 220 Output Total 725 / 725 425 / 425 625 / 625 Balance 125 / 125 745 / 745 -405 / -405 General: Alert, Oriented x3, Cooperative HEENT: Atraumatic, PERRLA, EOMI, Normocephalic Neck: Supple, No JVD, Negative Carotid Bruits Lungs: Diminished, Rhonchi, Short of Breath Cardiovascular: Normal S1, Normal S2, Irregular Rate Abdomen: Bowel Sounds Present, Soft, Non Tender, Non-Distended Extremities: Capillary Refill Less than 3 Seconds, Edema Skin: No rashes, No breakdown Musculoskeletal: No Tenderness to Palpation of Joints or Extremities Neurological: Cranial nerves II-XII grossly intact Psych/Mental Status: Normal Affect, Appropriate Laboratory Results 09/24/17 05:00: Diff Path Review Reviewed 09/24/17 10:45: Potassium 5.6 H 09/24/17 10:45: Urine Creatinine 141.00 09/24/17 10:45: Urine Urea Nitrogen 572 09/24/17 10:45: Urine Color Yellow, Urine Clarity Sl. Cloudy, Urine pH 5.0, Ur Specific [place] 1.020, Urine Protein 100 H, Urine Glucose (UA) Normal, Urine Ketones 5 H, Urine Occult Blood 50 H, Urine Nitrite Negative, Urine Bilirubin Negative, Urine Urobilinogen 1 H, Ur Leukocyte Esterase 500 H, Urine RBC 0-5 SEEN, Urine WBC 25-50 SEEN, Ur Squamous Epith Cells 0-5 SEEN, Urine Bacteria 1+ , Urine Mucus 0 SEEN 09/24/17 22:01: POC Glucose 349 H 09/25/17 06:00: WBC 12.4 H, RBC 3.06 L, Hgb 7.6 L, Hct 27.6 L, MCV 90.2, MCH 24.8 L, MCHC 27.5 L, RDW 19.4 H, RDW Differential 63.5 H, Plt Count 215, MPV 11.6, Immature Gran % (Auto) 0.100, Neut % (Auto) 82.2 H, Lymph % (Auto) 9.3 L, [place] % (Auto) 8.2, Eos % (Auto) 0.1, Baso % (Auto) 0.1, Absolute Neuts (auto) 10.2 H, Absolute Lymphs (auto) 1.16, Total Counted Not Reportable, Nucleated RBC % 1.0, Diff Path Review August, Absolute Retic 0.12 09/25/17 06:00: PT 28.7 H, INR 2.7 09/25/17 06:00: Sodium 146 H, Potassium 4.2, Chloride 109 H, Carbon Dioxide 31.0 , Anion Gap 6, BUN 70 H, Creatinine 2.50 H, Estim Creat Clear Calc 15.24, Est GFR (MDRD) Af Amer 24 L, Est GFR (MDRD) Non-Af 20 L, BUN/Creatinine Ratio 28.0 H , Glucose 167 H, Calcium 8.5 09/25/17 06:41: POC Glucose 174 H Current Medications Acetaminophen (Tylenol) 650 mg PO Q6H PRN PRN PRN Reason: Mild Pain (scale 0-3)/T>100.7 Last Admin: 09/24/17 00:04 Dose: 650 mg Albuterol/Ipratropium (Duoneb) 3 ml INHALATION Q4H.RT PRN PRN Reason: DYSPNEA/WHEEZING/SOB Atorvastatin Calcium (Lipitor) 40 mg PO QHS [facility] Last Admin: 09/24/17 22:11 Dose: 40 mg Calcium/Vitamin D (Os-West 500mg + D) 1 tablet PO BIDCM [facility] Last Admin: 09/25/17 09:39 Dose: 1 tablet Furosemide (Lasix) 40 mg IV DAILY [facility] Last Admin: 09/25/17 09:39 Dose: 40 mg Hydralazine HCl (Apresoline) 25 mg PO TID [facility] Last Admin: 09/25/17 06:46 Dose: 25 mg Insulin Detemir (Levemir (Bkc)) 30 units SC BID [facility] Last Admin: 09/25/17 09:45 Dose: 30 u Isosorbide Mononitrate (Imdur) 30 mg PO DAILY [facility] Last Admin: 09/25/17 09:39 Dose: 30 mg Magnesium Hydroxide (Milk Of Magnesia) 30 ml PO DAILY PRN PRN Reason: Constipation Metoprolol Tartrate (Lopressor (Beta Rah)) 12.5 mg PO BID [facility] Last Admin: 09/25/17 09:40 Dose: 12.5 mg Mirtazapine (Remeron) 15 mg PO QHS [facility] Last Admin: 09/24/17 22:12 Dose: 15 mg Multivitamins (Multivitamin) 1 tablet PO DAILY@0800 [facility] Last Admin: 09/25/17 09:39 Dose: 1 tablet Nystatin (Mycostatin Powder) 1 applic TOPICAL BID [facility] PRN Reason: Protocol Last Admin: 09/25/17 09:40 Dose: 1 applicatio Pantoprazole Sodium (Protonix) 40 mg PO DAILY [facility] Last Admin: 09/25/17 09:41 Dose: 40 mg Sodium Chloride () 5 - 30 ml IV UD PRN PRN Reason: SALINE FLUSH Last Admin: 09/25/17 09:48 Dose: 10 ml Warfarin Sodium (Coumadin (Pbkc)) 3 mg PO TuTh@1700 [facility] Last Admin: 09/23/17 17:27 Dose: 3 mg Warfarin Sodium (Coumadin (Pbkc)) 6 mg PO SuMoWeFrSa@1700 [facility] Medical Necessity - Tobacco Use Smoking Status: Never smoker Assessment/Plan All Active Problems (Last Updated 08/20/17 @ 16:19 by Kate Temple) Acute kidney injury superimposed on chronic kidney disease (Acute) Hyperkalemia (Acute) Acute respiratory failure with hypoxia (Acute) Acute on chronic combined systolic and diastolic heart failure (Acute) COPD exacerbation (Acute) Chest pain (Acute) Fall (Acute) SOB (shortness of breath) (Acute) The patient is a 82-year-old female who was admitted with acute shortness of breath no chest pressure/tightness consistent with acute hypoxic respiratory failure probably secondary to acute on chronic combined systolic congestive heart failure and COPD exacerbation. Patient is on Lasix, hydralazine, isosorbide mononitrate, metoprolol bronchodilator and Solu-Medrol. 1. Acute hypoxic respiratory failure secondary to combined systolic and diastolic heart failure COPD exacerbation: Patient is on 2 L of oxygen. 2. Acute on chronic combined systolic and diastolic heart failure: As per echo in August 10, 2017, EF 50% with severe concentric LVH, segmental systolic dysfunction. Left atrium mildly enlarged. Mild to moderate TR, RVSP 46 mmHg suggestive of mild pulmonary hypertension with normal right ventricular size and systolic function. 3. Acute kidney injury on CKD stage III, exact etiology unclear but possible hemodynamic fluid shift from diuretics: Mild hyperkalemia K5.6. Kayexalate 30 g ordered. Will change the Lasix to 40 mg IV daily. Urine culture does not show growth. Denies lower urinary tract symptoms. UTI ruled out. Urine dark yellow but clear no pus flakes or blood. Nephrology consult viewed and appreciated. Discussed with the software development manager. Fe Urea 16%, kidneys ultrasound unremarkable with no hydronephrosis or obstructive uropathy. Bladder is reported as incompletely distended with Schuler catheter present 4. Mild elevation in troponin possible due to kidney failure, CHF exacerbation : Patient denies any chest pain. EKG done today shows sinus rhythm with frequent PVCs. No significant ST-T changes as compared to previous EKG of 2012. 5. COPD: Do not think patient is an exacerbation as no expiratory wheezing. Discontinue Solu-Medrol. 6. Paroxysmal A. fib on Coumadin: She goes frequently in and out of A. fib. INR is therapeutic. 7 multiple other comorbidities include coronary artery disease, gastric ulcer, diabetes mellitus type 2, fall and decreased functional capacity: Home medication reconciliation done. PT and OT. This note was generated with [employer] dictation software. Every effort was made to ensure accuracy, however computerized remediation technician mistakes may persist. Microbiology Past 72 Hours 09/24/17 10:45 Urine Catheter - Schuler Urine Culture - Preliminary Culture exhibits no growth. Laboratory Results 09/24/17 05:00: Diff Path Review Reviewed 09/24/17 22:01: POC Glucose 349 H 09/25/17 06:00: WBC 12.4 H, RBC 3.06 L, Hgb 7.6 L, Hct 27.6 L, MCV 90.2, MCH 24.8 L, MCHC 27.5 L, RDW 19.4 H, RDW Differential 63.5 H, Plt Count 215, MPV 11.6, Immature Gran % (Auto) 0.100, Neut % (Auto) 82.2 H, Lymph % (Auto) 9.3 L, [place] % (Auto) 8.2, Eos % (Auto) 0.1, Baso % (Auto) 0.1, Absolute Neuts (auto) 10.2 H, Absolute Lymphs (auto) 1.16, Total Counted Not Reportable, Nucleated RBC % 1.0, Diff Path Review Reviewed, Absolute Retic 0.12 09/25/17 06:00: PT 28.7 H, INR 2.7 09/25/17 06:00: Sodium 146 H, Potassium 4.2, Chloride 109 H, Carbon Dioxide 31.0 , Anion Gap 6, BUN 70 H, Creatinine 2.50 H, Estim Creat Clear Calc 15.24, Est GFR (MDRD) Af Amer 24 L, Est GFR (MDRD) Non-Af 20 L, BUN/Creatinine Ratio 28.0 H , Glucose 167 H, Calcium 8.5 09/25/17 06:41: POC Glucose 174 H 09/25/17 11:15: POC Glucose 201 H Clinical Impression(s) from Imaging Studies Chest X-Ray 09/23/17 00:19 IMPRESSION: Bibasilar and bilateral perihilar alveolar disease. Chest X-Ray 09/23/17 08:22 IMPRESSION: Findings are suggestive of pulmonary edema or multifocal pneumonia. Renal Ultrasound 09/24/17 09:03 IMPRESSION: No hydronephrosis identified. Active Medications Acetaminophen (Tylenol) 650 mg PO Q6H PRN PRN PRN Reason: Mild Pain (scale 0-3)/T>100.7 Last Admin: 09/24/17 00:04 Dose: 650 mg Albuterol/Ipratropium (Duoneb) 3 ml INHALATION Q4H.RT PRN PRN Reason: DYSPNEA/WHEEZING/SOB Atorvastatin Calcium (Lipitor) 40 mg PO QHS [facility] Last Admin: 09/24/17 22:11 Dose: 40 mg Calcium/Vitamin D (Os-West 500mg + D) [facility] Last Admin: 09/25/17 09:39 Dose: 1 tablet Furosemide (Lasix) 40 mg IV DAILY [facility] Last Admin: 09/25/17 09:39 Dose: 40 mg Hydralazine HCl (Apresoline) 25 mg PO TID [facility] Last Admin: 09/25/17 06:46 Dose: 25 mg Insulin Detemir (Levemir (Bkc)) 30 units SC BID [facility] Last Admin: 09/25/17 09:45 Dose: 30 u Isosorbide Mononitrate (Imdur) 30 mg PO DAILY [facility] Last Admin: 09/25/17 09:39 Dose: 30 mg Magnesium Hydroxide (Milk Of Magnesia) 30 ml PO DAILY PRN PRN Reason: Constipation Metoprolol Tartrate (Lopressor (Beta Rah)) 12.5 mg PO BID [facility] Last Admin: 09/25/17 09:40 Dose: 12.5 mg Mirtazapine (Remeron) 15 mg PO QHS [facility] Last Admin: 09/24/17 22:12 Dose: 15 mg Multivitamins (Multivitamin) 1 tablet PO DAILY@0800 [facility] Last Admin: 09/25/17 09:39 Dose: 1 tablet Nystatin (Mycostatin Powder) 1 applic TOPICAL BID [facility] PRN Reason: Protocol Last Admin: 09/25/17 09:40 Dose: 1 applicatio Pantoprazole Sodium (Protonix) 40 mg PO DAILY [facility] Last Admin: 09/25/17 09:41 Dose: 40 mg Sodium Chloride () 5 - 30 ml IV UD PRN PRN Reason: SALINE FLUSH Last Admin: 09/25/17 09:48 Dose: 10 ml Warfarin Sodium (Coumadin (Pbkc)) 3 mg PO TuTh@1700 [facility] Last Admin: 09/23/17 17:27 Dose: 3 mg Warfarin Sodium (Coumadin (Pbkc)) 6 mg PO SuMoWeFrSa@1700 [facility] Code Visit Inpatient E&M: [id number] [facility] Hosp L3
[2017-09-25 11:51] LABS: Bedside Glucose 201 mg/dL (70-110)
[2017-09-25 12:17] LABS: Pathologist Review Reviewed
--- NOTE | 2017-09-25 12:45 | PCM.PN.REN ---
Patient Problems: Active and Suspected Problems (Last Updated 08/20/17 @ 16:19 by Kate Temple) Acute kidney injury superimposed on chronic kidney disease (Acute) Hyperkalemia (Acute) Subjective: Patient still SOB but better. On NC at 3l/m No nausea No vomiting. No CP - Physical Exam General: Oriented x3 HEENT: Atraumatic Oral: Moist Mucosa Neck: Supple, No JVD Lungs: Rhonchi, Short of Breath, Wheezes Cardiovascular: Regular rate, Regular Rhythm, Normal S1, Normal S2 Abdomen: Bowel Sounds Present, Soft, Non Tender Extremities: - - +1 EDEMA OF LE Skin: No rashes Neurological: Cranial nerves II-XII grossly intact, Neuro grossly intact Psych/Mental Status: Normal Affect Vital Signs Temp Pulse Resp BP Pulse Ox 98 F 64 20 H 126/69 H 94 09/25/17 09:45 09/25/17 11:05 09/25/17 09:45 09/25/17 09:45 09/25/17 09:45 Oxygen Flow Rate (L/min) 3 Oxygen Delivery Method Nasal Cannula Weight: 89.4 kg Body Mass Index (BMI) 34.2 Intake and Output for Last 24 Hours 09/23/17 09/24/17 09/25/17 23:59 23:59 23:59 Intake Total 850 / 850 1170 / 1170 640 / 640 Output Total 725 / 725 425 / 425 1075 / 1075 Balance 125 / 125 745 / 745 -435 / -435 Microbiology Past 72 Hours 09/24/17 10:45 Urine Culture - Preliminary Urine Catheter - Schuler Culture exhibits no growth. Laboratory Tests Past 24 Hrs 09/24/17 09/25/17 09/25/17 05:00 06:00 06:00 WBC 12.4 H RBC 3.06 L Hgb 7.6 L Hct 27.6 L MCV 90.2 MCH 24.8 L MCHC 27.5 L RDW 19.4 H RDW Differential 63.5 H Plt Count 215 MPV 11.6 Immature Gran % (Auto) 0.100 Neut % (Auto) 82.2 H Lymph % (Auto) 9.3 L [place] % (Auto) 8.2 Eos % (Auto) 0.1 Baso % (Auto) 0.1 Absolute Neuts (auto) 10.2 H Absolute Lymphs (auto) 1.16 Total Counted Not Reportable Nucleated RBC % 1.0 Diff Path Review Reviewed Reviewed Absolute Retic 0.12 PT 28.7 H INR 2.7 Sodium Potassium Chloride Carbon Dioxide Anion Gap BUN Creatinine Estim Creat Clear Calc Est GFR (MDRD) Af Amer Est GFR (MDRD) Non-Af BUN/Creatinine Ratio Glucose Calcium 09/25/17 06:00 WBC RBC Hgb Hct MCV MCH MCHC RDW RDW Differential Plt Count MPV Immature Gran % (Auto) Neut % (Auto) Lymph % (Auto) [place] % (Auto) Eos % (Auto) Baso % (Auto) Absolute Neuts (auto) Absolute Lymphs (auto) Total Counted Nucleated RBC % Diff Path Review Absolute Retic PT INR Sodium 146 H Potassium 4.2 Chloride 109 H Carbon Dioxide 31.0 Anion Gap 6 BUN 70 H Creatinine 2.50 H Estim Creat Clear Calc 15.24 Est GFR (MDRD) Af Amer 24 L Est GFR (MDRD) Non-Af 20 L BUN/Creatinine Ratio 28.0 H Glucose 167 H Calcium 8.5 POC Glucose 09/25/17 09/25/17 09/24/17 11:15 06:41 22:01 POC Glucose 201 H 174 H 349 H Medical Necessity - Tobacco Use Smoking Status: Never smoker Assessment/Plan All Active Problems (Last Updated 08/20/17 @ 16:19 by Kate Temple) Acute kidney injury superimposed on chronic kidney disease (Acute) Hyperkalemia (Acute) Acute respiratory failure with hypoxia (Acute) Acute on chronic combined systolic and diastolic heart failure (Acute) COPD exacerbation (Acute) Chest pain (Acute) Fall (Acute) SOB (shortness of breath) (Acute) 1-Acute kidney injury on chronic kidney disease. Baseline creatinine seems around 1.3milligrams per deciliter. Acute kidney injury is most probably prerenal ( FeUrea is 16%)from cardiorenal syndrome due to pulmonary hypertension and diuresis. Cr is slightly worse today . last Cr trend 2.3>2.5 mg/dL Good UOP with lasix 40 IV once daily. I will continue the same Kidney US did not show obstruction BP is well controlled. Please continue the same meds. No need for renal replacement therapy. I'll continue to monitor the kidney function test along with urine output. Avoid NSAIDs and ARB and all nephrotoxic so now. 2-hyperkalemia: most probably related to acute kidney injury. resolved with Kayexalate K is 4.2 this am 3-acute hypoxic respiratory failure due to pulmonary edema from CHF/COPD. Improved with diuresis. continue COPD tx as per the primary service Continue the same dose of lasix 4-CHF decompensation: improved with diuresis. BNP is decreasing .Heart rate is well-controlled. Continue O2 support to keep oxygen saturation more than 92%. 5-Anemia: hemoglobin around 7.7. Please do iron profile study. RBCs transfusion when hemoglobin that than 7. I'll defer that to the primary service. Thank you for the consult.renal team will continue to follow. Plan of care was discussed with Dr. Mckeon. Ruben Quiroga MD [phone]
[2017-09-25] MEDS: Mirtazapine 15 MG Tablet PO (22:04)
[2017-09-25] MEDS: Atorvastatin Calcium 40 MG Tablet PO (22:04)
[2017-09-25 22:40] LABS: Bedside Glucose 259 mg/dL (70-110)
[2017-09-26] VITALS (21 sets, daily range): BP systolic 142–181; BP diastolic 49–75; PULSE 59–98; RESP 18–20; TEMP 36.4–37.1; O2SAT 92–96
[2017-09-26 06:07] LABS: Absolute Lymphocyte Count 0.89 X10^3/ul (0.83-4.51); Absolute Neutrophil Count 5.4 X10^3/uL (2.0-7.7); Basophil# 0.01 X10^3/uL; Basophil% 0.1 % (0-1); Eosinophil# 0.15 X10^3/uL; Eosinophils% 2.1 % (0-5); Hematocrit 27.1 % (37-47); Hemoglobin 7.2 g/dl (12.0-15.0); Lymphocyte # 0.89 X10^3/ul (4.0); Lymphocyte % 12.6 % (19-41); Mean Corp Hgb Conc 26.6 g/gl (32-36); Mean Corpuscular Hgb 24.9 pg (27.0-32.0); Mean Corpuscular Volume 93.8 fL (81-99); Mean Platelet Vol. 11.6 fl (6.2-12.0); Monocyte# 0.64 X10^3/uL; Monocyte% 9.1 % (0-10); Neutrophil # 5.35 X10^3/uL (2.7-7.7); Neutrophil % 75.8 % (47-70); Platelet Count 189 K/mm3 (150-450); RBC Distribution Width CV 18.8 % (11.6-14.6); RBC Distribution Width SD 62.4 fl (35.1-43.9); Red Blood Count 2.89 M/mm3 (4.2-5.4); White Blood Count 7.1 K/mm3 (4.4-11.0)
[2017-09-26 06:09] LABS: POSITIVE COUNT NO; POSITIVE DIFFERENTIAL NO; POSITIVE MORPHOLOGY NO
[2017-09-26 06:22] LABS: Albumin, Serum 2.6 g/dL (3.2-5.0); BUN 54 mg/dL (7-18); BUN/Creat Ratio 31.6 RATIO (10-20); Calcium,Total 8.2 mg/dL (8.5-10.1); Chloride 113 mmol/L (98-107); Creatinine, Serum 1.71 mg/dL (0.55-1.02); EST Glomerular Filtration Rate 30 mL/min (>60); Est Glom Filt Rate - Afr Amer 37 mL/min (>60); Estimated Creatinine Clearance 22.28 ml/min; Glucose 85 mg/dL (74-106); International Normalized Ratio 2.2; Phosphorus 2.8 mg/dL (2.5-4.9); Potassium 4.2 mmol/L (3.5-5.1); Prothrombin Time (Protime)PT. 24.2 SECONDS (11.7-14.9); Sodium Level 148 mmol/L (136-145)
[2017-09-26] MEDS: hydrALAZINE 25 MG Tablet PO (06:56)
[2017-09-26 07:01] LABS: Bedside Glucose 88 mg/dL (70-110)
[2017-09-26] MEDS: Multivitamins,Therapeutic Tablet 1 TABLET PO (08:27)
[2017-09-26] MEDS: Calcium Carb/Vitamin D 1 TABLET Tablet PO ×2 (08:27→17:39)
[2017-09-26] MEDS: Isosorbide Mononitrate 30 MG Tablet PO (10:06)
[2017-09-26] MEDS: Furosemide 40 MG/4 ML Vial IV ×2 (10:06→14:33)
[2017-09-26] MEDS: 0.9% NaCl Peripheral Flush Adult/Peds IV ×2 (10:07→14:33)
[2017-09-26] MEDS: Nystatin Powder 15gm Bottle 1 APPLIC TOPICAL ×2 (10:07→21:54)
[2017-09-26] MEDS: Pantoprazole Sodium 40 MG Tablet PO (10:07)
[2017-09-26] MEDS: Metoprolol Tartrate 25 MG Tablet 12.5 MG PO ×2 (10:20→21:54)
[2017-09-26 10:21] LABS: Bedside Glucose 248 mg/dL (70-110)
[2017-09-26 12:21] LABS: Bedside Glucose 288 mg/dL (70-110)
--- NOTE | 2017-09-26 12:56 | PCM.PN.REN ---
Patient Problems: Active and Suspected Problems (Last Updated 08/20/17 @ 16:19 by Ktae Temple) Acute kidney injury superimposed on chronic kidney disease (Acute) Hyperkalemia (Acute) Subjective: Patient said her breathing is better On NC at 2.5 l/m . No nausea No vomiting No CP - Physical Exam General: Alert, Oriented x3 HEENT: Atraumatic Oral: Moist Mucosa Neck: Supple, No JVD Lungs: Normal air movement, No wheeze, Rhonchi Cardiovascular: Regular rate, Regular Rhythm, Normal S1, Normal S2 Abdomen: Bowel Sounds Present, Non Tender Extremities: No clubbing, No cyanosis, No edema Skin: No rashes Musculoskeletal: No Tenderness to Palpation of Joints or Extremities Lymphatic: No Cervical, Supraclavicular, or Inguinal Adenopathy Neurological: Cranial nerves II-XII grossly intact, Neuro grossly intact Psych/Mental Status: Normal Affect Vital Signs Temp Pulse Resp BP Pulse Ox 98.7 F 68 18 155/49 H 93 09/26/17 12:35 09/26/17 12:35 09/26/17 12:35 09/26/17 12:35 09/26/17 12:35 Oxygen Flow Rate (L/min) 2.5 Oxygen Delivery Method Nasal Cannula Weight: 89 kg Body Mass Index (BMI) 34.2 Intake and Output for Last 24 Hours 09/24/17 09/25/17 09/26/17 23:59 23:59 23:59 Intake Total 1170 / 1170 940 / 940 1110 / 1110 Output Total 425 / 425 1425 / 1425 1000 / 1000 Balance 745 / 745 -485 / -485 110 / 110 Microbiology Past 72 Hours 09/24/17 10:45 Urine Culture - Final Urine Catheter - Schuler Culture exhibits no growth. Laboratory Tests Past 24 Hrs 09/26/17 09/26/17 09/26/17 05:50 05:50 05:50 WBC 7.1 RBC 2.89 L Hgb 7.2 L Hct 27.1 L MCV 93.8 MCH 24.9 L MCHC 26.6 L RDW 18.8 H RDW Differential 62.4 H Plt Count 189 MPV 11.6 Immature Gran % (Auto) 0.300 Neut % (Auto) 75.8 H Lymph % (Auto) 12.6 L [place] % (Auto) 9.1 Eos % (Auto) 2.1 Baso % (Auto) 0.1 Absolute Neuts (auto) 5.4 Absolute Lymphs (auto) 0.89 Total Counted Not Reportable PT 24.2 H INR 2.2 Sodium 148 H Potassium 4.2 Chloride 113 H Carbon Dioxide 32.0 BUN 54 H Creatinine 1.71 H Estim Creat Clear Calc 22.28 Est GFR (MDRD) Af Amer 37 L Est GFR (MDRD) Non-Af 30 L BUN/Creatinine Ratio 31.6 H Glucose 85 Calcium 8.2 L Phosphorus 2.8 Iron TIBC Iron Saturation Ferritin Albumin 2.6 L Blood Type Antibody Screen Crossmatch 09/26/17 09/26/17 05:50 08:15 WBC RBC Hgb Hct MCV MCH MCHC RDW RDW Differential Plt Count MPV Immature Gran % (Auto) Neut % (Auto) Lymph % (Auto) [place] % (Auto) Eos % (Auto) Baso % (Auto) Absolute Neuts (auto) Absolute Lymphs (auto) Total Counted PT INR Sodium Potassium Chloride Carbon Dioxide BUN Creatinine Estim Creat Clear Calc Est GFR (MDRD) Af Amer Est GFR (MDRD) Non-Af BUN/Creatinine Ratio Glucose Calcium Phosphorus Iron Pending TIBC Pending Iron Saturation Pending Ferritin Pending Albumin Blood Type O NEGATIVE Antibody Screen NEGATIVE Crossmatch See Detail POC Glucose 09/26/17 09/26/17 09/26/17 12:08 10:13 06:55 POC Glucose 288 H 248 H 88 09/25/17 21:56 POC Glucose 259 H Medical Necessity - Tobacco Use Smoking Status: Never smoker Assessment/Plan All Active Problems (Last Updated 08/20/17 @ 16:19 by Kate Temple) Acute kidney injury superimposed on chronic kidney disease (Acute) Hyperkalemia (Acute) Acute respiratory failure with hypoxia (Acute) Acute on chronic combined systolic and diastolic heart failure (Acute) COPD exacerbation (Acute) Chest pain (Acute) Fall (Acute) SOB (shortness of breath) (Acute) 1-Acute kidney injury on chronic kidney disease. Baseline creatinine seems around 1.3milligrams per deciliter. Acute kidney injury is most probably prerenal ( FeUrea is 16%)from cardiorenal syndrome due to pulmonary hypertension and diuresis. Cr is improving. Last Cr trend 2.5 > 1.7 mg/dL . Good UOP with lasix 40 IV once daily. I will continue the same Kidney US did not show obstruction No need for renal replacement therapy. I'll continue to monitor the kidney function test along with urine output. Avoid NSAIDs and ARB and all nephrotoxic so now. 2-hyperkalemia: most probably related to acute kidney injury. resolved with Kayexalate K is 4.2 this am 3-acute hypoxic respiratory failure due to pulmonary edema from CHF/COPD. Improved with diuresis. continue COPD tx as per the primary service Continue the same dose of lasix 4-CHF decompensation: improved with diuresis. BNP is decreasing .Heart rate is well-controlled. Continue O2 support to keep oxygen saturation more than 92%. 5-Anemia: hemoglobin around 7.7. O ordered iron profile study. RBCs transfusion when hemoglobin that than 7. I'll defer that to the primary service. 6- HTN: BP is elevated. Will increase hydralazine to 50 TID Continue lasix and other BP meds Thank you for the consult.renal team will continue to follow. Ruben Quiroga MD [phone]
[2017-09-26 13:12] LABS: Ferritin 94 ng/mL (8-252); Iron 19 ug/dL (50-170); Iron Binding Capacity,Total 286 ug/dL (250-450); PERCENT IRON SATURATION 6.6 % (15.0-55.0)
--- NOTE | 2017-09-26 14:16 | PN_ITS ---
Patient Problems: Active and Suspected Problems (Last Updated 08/20/17 @ 16:19 by Kate Temple) Acute kidney injury superimposed on chronic kidney disease (Acute) Hyperkalemia (Acute) Subjective: Patient hemoglobin 10 to be low and dropped to 7.2 today. Heart rate in 50s-60s , A. fib. Patient is on Coumadin but I think she is not a candidate as she is dropping hemoglobin and has happened in the past. Vitals/I&O's: Vital Signs Temp Pulse Resp BP Pulse Ox 98.7 F 68 18 155/49 H 93 09/26/17 12:35 09/26/17 12:35 09/26/17 12:35 09/26/17 12:35 09/26/17 12:35 Oxygen Flow Rate (L/min) 2.5 Oxygen Delivery Method Nasal Cannula Weight: 196 lb 3.382 oz Body Mass Index (BMI) 34.2 Intake and Output for Last 24 Hours 09/24/17 09/25/17 09/26/17 23:59 23:59 23:59 Intake Total 1170 / 1170 940 / 940 1110 / 1110 Output Total 425 / 425 1425 / 1425 1000 / 1000 Balance 745 / 745 -485 / -485 110 / 110 General: Alert, Oriented x3, Cooperative HEENT: Atraumatic, PERRLA, EOMI, Normocephalic Neck: Supple, No JVD, Negative Carotid Bruits Lungs: Diminished, Rales - Coarse rales present Cardiovascular: Normal S1, Normal S2, No murmurs, Irregular Rate Abdomen: Bowel Sounds Present, Soft, Non Tender, Non-Distended Extremities: No edema, Capillary Refill Less than 3 Seconds Skin: No rashes, No breakdown Musculoskeletal: No Tenderness to Palpation of Joints or Extremities Neurological: Cranial nerves II-XII grossly intact Psych/Mental Status: Normal Affect, Appropriate Microbiology Past 72 Hours 09/24/17 10:45 Urine Catheter - Schuler Urine Culture - Final Culture exhibits no growth. Laboratory Results 09/25/17 21:56: POC Glucose 259 H 09/26/17 05:50: WBC 7.1, RBC 2.89 L, Hgb 7.2 L, Hct 27.1 L, MCV 93.8, MCH 24.9 L , MCHC 26.6 L, RDW 18.8 H, RDW Differential 62.4 H, Plt Count 189, MPV 11.6, Immature Gran % (Auto) 0.300, Neut % (Auto) 75.8 H, Lymph % (Auto) 12.6 L, [place] % (Auto) 9.1, Eos % (Auto) 2.1, Baso % (Auto) 0.1, Absolute Neuts (auto) 5.4, Absolute Lymphs (auto) 0.89, Total Counted Not Reportable 09/26/17 05:50: PT 24.2 H, INR 2.2 09/26/17 05:50: Sodium 148 H, Potassium 4.2, Chloride 113 H, Carbon Dioxide 32.0 , BUN 54 H, Creatinine 1.71 H, Estim Creat Clear Calc 22.28, Est GFR (MDRD) Af Amer 37 L, Est GFR (MDRD) Non-Af 30 L, BUN/Creatinine Ratio 31.6 H, Glucose 85, Calcium 8.2 L, Phosphorus 2.8, Albumin 2.6 L 09/26/17 05:50: Iron 19 L, TIBC 286, Iron Saturation 6.6 L, Ferritin 94 09/26/17 06:55: POC Glucose 88 09/26/17 08:15: Blood Type O NEGATIVE, Antibody Screen NEGATIVE, Crossmatch See Detail 09/26/17 10:13: POC Glucose 248 H 09/26/17 12:08: POC Glucose 288 H Current Medications Acetaminophen (Tylenol) 650 mg PO Q6H PRN PRN PRN Reason: Mild Pain (scale 0-3)/T>100.7 Last Admin: 09/24/17 00:04 Dose: 650 mg Albuterol/Ipratropium (Duoneb) 3 ml INHALATION Q4H.RT PRN PRN Reason: DYSPNEA/WHEEZING/SOB Atorvastatin Calcium (Lipitor) 40 mg PO QHS [facility] Last Admin: 09/25/17 22:04 Dose: 40 mg Calcium/Vitamin D (Os-West 500mg + D) 1 tablet PO BIDCM [facility] Last Admin: 09/26/17 08:27 Dose: 1 tablet Furosemide (Lasix) 40 mg IV DAILY [facility] Last Admin: 09/26/17 10:06 Dose: 40 mg Furosemide (Lasix) 40 mg IV X1 ONE Stop: 09/26/17 14:40 Hydralazine HCl (Apresoline) 50 mg PO TID [facility] Insulin Detemir (Levemir (Bkc)) 30 units SC BID [facility] Last Admin: 09/26/17 10:14 Dose: 30 u Isosorbide Mononitrate (Imdur) 30 mg PO DAILY [facility] Last Admin: 09/26/17 10:06 Dose: 30 mg Magnesium Hydroxide (Milk Of Magnesia) 30 ml PO DAILY PRN PRN Reason: Constipation Metoprolol Tartrate (Lopressor (Beta Rah)) 12.5 mg PO BID [facility] Last Admin: 09/26/17 10:20 Dose: 12.5 mg Mirtazapine (Remeron) 15 mg PO QHS [facility] Last Admin: 09/25/17 22:04 Dose: 15 mg Multivitamins (Multivitamin) 1 tablet PO DAILY@0800 [facility] Last Admin: 09/26/17 08:27 Dose: 1 tablet Nystatin (Mycostatin Powder) 1 applic TOPICAL BID [facility] PRN Reason: Protocol Last Admin: 09/26/17 10:07 Dose: 1 applicatio Pantoprazole Sodium (Protonix) 40 mg PO DAILY [facility] Last Admin: 09/26/17 10:07 Dose: 40 mg Sodium Chloride () 5 - 30 ml IV UD PRN PRN Reason: SALINE FLUSH Last Admin: 09/26/17 10:07 Dose: 10 ml Medical Necessity - Tobacco Use Smoking Status: Never smoker Assessment/Plan All Active Problems (Last Updated 08/20/17 @ 16:19 by Kate Temple) Acute kidney injury superimposed on chronic kidney disease (Acute) Hyperkalemia (Acute) Acute respiratory failure with hypoxia (Acute) Acute on chronic combined systolic and diastolic heart failure (Acute) COPD exacerbation (Acute) Chest pain (Acute) Fall (Acute) SOB (shortness of breath) (Acute) The patient is a 82-year-old female who was admitted with acute shortness of breath no chest pressure/tightness consistent with acute hypoxic respiratory failure probably secondary to acute on chronic combined systolic congestive heart failure and COPD exacerbation. Patient is on Lasix, hydralazine, isosorbide mononitrate, metoprolol bronchodilator and Solu-Medrol. 1. Acute hypoxic respiratory failure secondary to combined systolic and diastolic heart failure COPD exacerbation: Patient is on 2-3 L of oxygen. 2. Acute on chronic combined systolic and diastolic heart failure: As per echo in August 10, 2017, EF 50% with severe concentric LVH, segmental systolic dysfunction. Left atrium mildly enlarged. Mild to moderate TR, RVSP 46 mmHg suggestive of mild pulmonary hypertension with normal right ventricular size and systolic function. Patient had mild fluid overload and shortness of breath after 1 unit of transfusion. Lasix extra 40 mg IV given. Acute on chronic anemia; normocytic normochromic anemia mixed from anemia of chronic disease, exacerbated by Coumadin: Hemoglobin dropped to 7.2 although her baseline runs about 8. It did not improve in last few days. 1 unit of PRBC transfused. H&H improved to 9.0/32.5. Coumadin discontinued. 3. Acute kidney injury on CKD stage III, exact etiology unclear but possible hemodynamic fluid shift from diuretics: Mild hyperkalemia K5.6. Kayexalate 30 g given. Hyperkalemia resolved. Creatinine improved to 1.7. Lasix 40 mg IV daily. Urine culture does not show growth. Denies lower urinary tract symptoms. UTI ruled out. Urine dark yellow but clear no pus flakes or blood. Nephrology consult viewed and appreciated. Discussed with the rigger up. Fe Urea 16%, kidneys ultrasound unremarkable with no hydronephrosis or obstructive uropathy. Bladder is reported as incompletely distended with Schuler catheter present 4. Mild elevation in troponin possible due to kidney failure, CHF exacerbation : Patient denies any chest pain. EKG done today shows sinus rhythm with frequent PVCs. No significant ST-T changes as compared to previous EKG of 2012. 5. COPD: Do not think patient is an exacerbation as no expiratory wheezing. Discontinue Solu-Medrol. 6. Paroxysmal A. fib on Coumadin: She goes frequently in and out of A. fib. INR is therapeutic. 7 multiple other comorbidities include coronary artery disease, gastric ulcer, diabetes mellitus type 2, fall and decreased functional capacity: Home medication reconciliation done. PT and OT. Patient's daughter want to take her to home. PT recommended home health. Anticipate discharge tomorrow. This note was generated with [employer] software. Every effort was made to ensure accuracy, however computerized senior editor mistakes may persist. Microbiology Past 72 Hours 09/24/17 10:45 Urine Catheter - Schuler Urine Culture - Preliminary Culture exhibits no growth. Laboratory Results 09/24/17 05:00: Diff Path Review Reviewed 09/24/17 22:01: POC Glucose 349 H 09/25/17 06:00: WBC 12.4 H, RBC 3.06 L, Hgb 7.6 L, Hct 27.6 L, MCV 90.2, MCH 24.8 L, MCHC 27.5 L, RDW 19.4 H, RDW Differential 63.5 H, Plt Count 215, MPV 11.6, Immature Gran % (Auto) 0.100, Neut % (Auto) 82.2 H, Lymph % (Auto) 9.3 L, [place] % (Auto) 8.2, Eos % (Auto) 0.1, Baso % (Auto) 0.1, Absolute Neuts (auto) 10.2 H, Absolute Lymphs (auto) 1.16, Total Counted Not Reportable, Nucleated RBC % 1.0, Diff Path Review Reviewed, Absolute Retic 0.12 09/25/17 06:00: PT 28.7 H, INR 2.7 09/25/17 06:00: Sodium 146 H, Potassium 4.2, Chloride 109 H, Carbon Dioxide 31.0 , Anion Gap 6, BUN 70 H, Creatinine 2.50 H, Estim Creat Clear Calc 15.24, Est GFR (MDRD) Af Amer 24 L, Est GFR (MDRD) Non-Af 20 L, BUN/Creatinine Ratio 28.0 H , Glucose 167 H, Calcium 8.5 09/25/17 06:41: POC Glucose 174 H 09/25/17 11:15: POC Glucose 201 H Clinical Impression(s) from Imaging Studies Chest X-Ray 09/23/17 00:19 IMPRESSION: Bibasilar and bilateral perihilar alveolar disease. Chest X-Ray 09/23/17 08:22 IMPRESSION: Findings are suggestive of pulmonary edema or multifocal pneumonia. Renal Ultrasound 09/24/17 09:03 IMPRESSION: No hydronephrosis identified. Active Medications Acetaminophen (Tylenol) 650 mg PO Q6H PRN PRN PRN Reason: Mild Pain (scale 0-3)/T>100.7 Last Admin: 09/24/17 00:04 Dose: 650 mg Albuterol/Ipratropium (Duoneb) 3 ml INHALATION Q4H.RT PRN PRN Reason: DYSPNEA/WHEEZING/SOB Atorvastatin Calcium (Lipitor) 40 mg PO QHS [facility] Last Admin: 09/24/17 22:11 Dose: 40 mg Calcium/Vitamin D (Os-[place] 500mg + D) [facility] Last Admin: 09/25/17 09:39 Dose: 1 tablet Furosemide (Lasix) 40 mg IV DAILY [facility] Last Admin: 09/25/17 09:39 Dose: 40 mg Hydralazine HCl (Apresoline) 25 mg PO TID [facility] Last Admin: 09/25/17 06:46 Dose: 25 mg Insulin Detemir (Levemir (Bkc)) 30 units SC BID [facility] Last Admin: 09/25/17 09:45 Dose: 30 u Isosorbide Mononitrate (Imdur) 30 mg PO DAILY [facility] Last Admin: 09/25/17 09:39 Dose: 30 mg Magnesium Hydroxide (Milk Of Magnesia) 30 ml PO DAILY PRN PRN Reason: Constipation Metoprolol Tartrate (Lopressor (Beta Rah)) 12.5 mg PO BID [facility] Last Admin: 09/25/17 09:40 Dose: 12.5 mg Mirtazapine (Remeron) 15 mg PO QHS [facility] Last Admin: 09/24/17 22:12 Dose: 15 mg Multivitamins (Multivitamin) 1 tablet PO DAILY@0800 [facility] Last Admin: 09/25/17 09:39 Dose: 1 tablet Nystatin (Mycostatin Powder) 1 applic TOPICAL BID [facility] PRN Reason: Protocol Last Admin: 09/25/17 09:40 Dose: 1 applicatio Pantoprazole Sodium (Protonix) 40 mg PO DAILY [facility] Last Admin: 09/25/17 09:41 Dose: 40 mg Sodium Chloride () 5 - 30 ml IV UD PRN PRN Reason: SALINE FLUSH Last Admin: 09/25/17 09:48 Dose: 10 ml Warfarin Sodium (Coumadin (Pbkc)) 3 mg PO TuTh@1700 [facility] Last Admin: 09/23/17 17:27 Dose: 3 mg Warfarin Sodium (Coumadin (Pbkc)) 6 mg PO SuMoWeFrSa@1700 [facility] Code Visit Inpatient E&M: 33687 [facility] L3
--- NOTE | 2017-09-26 14:17 | CASEMGMT ---
[facility] called patient's granddaughter and she said if patient were to come home today she would need transport set up. However, if she is discharged tomorrow they can transport her. She was in agreement with home PT/Ot. [facility] told her SW will see if [facility] can do it since they are already coming out to her home. [facility] called [facility] and made a referral as well as let them know patient may be d/c Friday. They will check with corporate to make sure they can do skilled services. [facility] faxed referral to [facility]. Plan: d/c home with resumption of [employer] services. Possibly PT/OT with [facility]. 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
[2017-09-26] MEDS: hydrALAZINE 50 MG Tablet PO ×2 (14:34→21:48)
[2017-09-26 15:06] LABS: Hematocrit 32.5 % (37-47)
[2017-09-26 17:01] LABS: Bedside Glucose 211 mg/dL (70-110)
[2017-09-26] MEDS: Mirtazapine 15 MG Tablet PO (21:49)
[2017-09-26] MEDS: Atorvastatin Calcium 40 MG Tablet PO (21:54)
[2017-09-26 22:01] LABS: Bedside Glucose 167 mg/dL (70-110)
[2017-09-27] VITALS (9 sets, daily range): BP systolic 136–155; BP diastolic 52–61; PULSE 56–84; RESP 18–20; TEMP 36.9; O2SAT 94–96
[2017-09-27] MEDS: Acetaminophen 325 MG Tablet 650 MG PO (03:38)
[2017-09-27] MEDS: hydrALAZINE 50 MG Tablet PO (06:49)
[2017-09-27 07:15] LABS: International Normalized Ratio 2.2; Prothrombin Time (Protime)PT. 24.2 SECONDS (11.7-14.9)
[2017-09-27 07:24] LABS: Absolute Neutrophil Count 5.2 X10^3/uL (2.0-7.7); Basophil# 0.02 X10^3/uL; Basophil% 0.3 % (0-1); Eosinophil# 0.16 X10^3/uL; Eosinophils% 2.3 % (0-5); Hematocrit 30.4 % (37-47); Hemoglobin 8.5 g/dl (12.0-15.0); Lymphocyte % 13.2 % (19-41); Mean Corpuscular Hgb 25.8 pg (27.0-32.0); Mean Corpuscular Volume 92.4 fL (81-99); Mean Platelet Vol. 11.6 fl (6.2-12.0); Monocyte# 0.57 X10^3/uL; Monocyte% 8.4 % (0-10); Neutrophil # 5.15 X10^3/uL (2.7-7.7); Neutrophil % 75.7 % (47-70); Platelet Count 179 K/mm3 (150-450); RBC Distribution Width CV 18.5 % (11.6-14.6); RBC Distribution Width SD 62.3 fl (35.1-43.9); Red Blood Count 3.29 M/mm3 (4.2-5.4); White Blood Count 6.8 K/mm3 (4.4-11.0)
[2017-09-27 07:26] LABS: NRBC Flagged by Analyzer 0.8 % (0-5); POSITIVE COUNT NO; POSITIVE DIFFERENTIAL NO; POSITIVE MORPHOLOGY NO
[2017-09-27 07:27] LABS: Absolute Nucleated RBC Count 0.06 10^3/uL (0-5)
[2017-09-27 07:29] LABS: Albumin, Serum 2.7 g/dL (3.2-5.0); BUN 44 mg/dL (7-18); BUN/Creat Ratio 30.8 RATIO (10-20); Calcium,Total 8.4 mg/dL (8.5-10.1); Chloride 112 mmol/L (98-107); Creatinine, Serum 1.43 mg/dL (0.55-1.02); EST Glomerular Filtration Rate 37 mL/min (>60); Est Glom Filt Rate - Afr Amer 45 mL/min (>60); Estimated Creatinine Clearance 26.64 ml/min; Glucose 66 mg/dL (74-106); Phosphorus 2.4 mg/dL (2.5-4.9); Potassium 4.1 mmol/L (3.5-5.1); Sodium Level 148 mmol/L (136-145)
[2017-09-27 07:41] LABS: Bedside Glucose 72 mg/dL (70-110)
[2017-09-27] MEDS: Calcium Carb/Vitamin D 1 TABLET Tablet PO (08:49)
[2017-09-27] MEDS: Multivitamins,Therapeutic Tablet 1 TABLET PO (08:49)
[2017-09-27] MEDS: Furosemide 40 MG/4 ML Vial IV (09:43)
[2017-09-27] MEDS: Metoprolol Tartrate 25 MG Tablet 12.5 MG PO (09:43)
[2017-09-27] MEDS: 0.9% NaCl Peripheral Flush Adult/Peds IV (09:43)
[2017-09-27] MEDS: Nystatin Powder 15gm Bottle 1 APPLIC TOPICAL (09:44)
[2017-09-27] MEDS: Pantoprazole Sodium 40 MG Tablet PO (09:44)
[2017-09-27] MEDS: Isosorbide Mononitrate 30 MG Tablet PO (09:44)
[2017-09-27 10:11] LABS: Bedside Glucose 174 mg/dL (70-110)
--- NOTE | 2017-09-27 10:40 | PCM.DC ---
- Discharge Diagnoses Current Active Problems: Current Active and Chronic Problems (Last Updated 08/20/17 @ 16:19 by Kate Temple) Acute kidney injury superimposed on chronic kidney disease (Acute) Hyperkalemia (Acute) You will use the following diet at home:: Calorie/Carbohydrate Controlled (specify 1200, 1400, etc) - 1800 ADA diet, Cardiac Discharge Activity: May Not Drive Call your doctor if you observe: Shortness of breath Allergies/Adverse Reactions: Allergies LEANDER Inhibitors Allergy (Verified 09/22/17 23:22) Unknown Medications to take at Discharge Atorvastatin Calcium [Lipitor] 40 mg PO QHS 04/19/17 Calcium Carbonate/Vitamin D3 [Calcium 500-Vit D3 600 Tablet] 1 each PO BID 04/19/17 Insulin Detemir [Levemir] 30 unit SQ BID 04/19/17 Isosorbide Mononitrate [Imdur] 30 mg PO DAILY 04/19/17 Mirtazapine [Remeron] 15 mg PO QHS 04/19/17 Multivitamin [Daily Multiple Vitamin] 1 each PO DAILY 04/19/17 Omeprazole 40 mg PO DAILY 04/19/17 Acetaminophen [Tylenol Tablet] 650 mg PO Q6H PRN PRN tablet 08/13/17 Metoprolol Tartrate [Lopressor (beta joan)] 12.5 mg PO BID #60 tab 08/13/17 Furosemide [Lasix] 40 mg PO DAILY #60 tab 09/27/17 Hydralazine HCl 50 mg PO 4X/DAY #90 tab 09/27/17 Nystatin Powder [Mycostatin Powder] 1 applic TOPICAL BID bottle 09/27/17 The following prescriptions were given: Hydralazine HCl 50 mg PO 4X/DAY #90 tab Primary Care Physician: Eliot Loja MD [Primary Care Provider] -
--- NOTE | 2017-09-27 10:41 | PCM.DC.SUM ---
Discharge Date and Diagnosis - Problem List Patient Problems: Active and Suspected Problems (Last Updated 08/20/17 @ 16:19 by Kate Temple) Acute kidney injury superimposed on chronic kidney disease (Acute) Hyperkalemia (Acute) Date of Admission: 09/23/17 Date of Discharge: 09/27/17 - Primary Discharge Diagnosis Active and Suspected Problems (Last Updated 08/20/17 @ 16:19 by Kate Temple) 1. Acute on chronic hypoxic respiratory failure secondary to combined systolic and diastolic heart failure COPD exacerbation: 2. Acute on chronic combined systolic and diastolic heart failure: Patient had mild fluid overload/pulmonary congestion and shortness of breath after 1 unit of transfusion. Acute on chronic anemia; normocytic normochromic anemia mixed from anemia of chronic disease, exacerbated by Coumadin: 3. Acute kidney injury on CKD stage III, exact etiology unclear but possible hemodynamic fluid shift from diuretics: 4. Mild elevation in troponin possible due to kidney failure, CHF exacerbation: - Secondary Discharge Diagnosis Chronic Problems (Last Updated 08/20/17 @ 16:19 by Kate Temple) Afib (Chronic) Gastric ulcer (Chronic) Colon polyps (Chronic) CHF (congestive heart failure) (Chronic) CAD (coronary artery disease) (Chronic) Diabetes (Chronic) Dizziness (Chronic) Chronic coronary artery disease (Chronic) Hospital Course and Treatment Operations: None Summary of Care Provided: [] The patient is a 82-year-old female who was admitted with acute shortness of breath no chest pressure/tightness consistent with acute hypoxic respiratory failure probably secondary to acute on chronic combined systolic congestive heart failure and COPD exacerbation. Patient is on Lasix, hydralazine, isosorbide mononitrate, metoprolol bronchodilator and Solu-Medrol. 1. Acute on chronic hypoxic respiratory failure secondary to combined systolic and diastolic heart failure COPD exacerbation: Patient is on 2 L of oxygen. She has been admitted for acute on chronic hypoxic respiratory failure multiple times in the past 2. Acute on chronic combined systolic and diastolic heart failure: As per echo in August 10, 2017, EF 50% with severe concentric LVH, segmental systolic dysfunction. Left atrium mildly enlarged. Mild to moderate TR, RVSP 46 mmHg suggestive of mild pulmonary hypertension with normal right ventricular size and systolic function. Patient Lasix decreased to 40 mg daily. K4.1. Patient had mild fluid overload and shortness of breath after 1 unit of transfusion. Lasix extra 40 mg IV given. Acute on chronic anemia; normocytic normochromic anemia mixed from anemia of chronic disease, exacerbated by Coumadin: Hemoglobin dropped to 7.2 although her baseline runs about 8. It did not improve in last few days. 1 unit of PRBC transfused. H&H improved to 9.0/32.5. Coumadin discontinued. 3. Acute kidney injury on CKD stage III, exact etiology unclear but possible hemodynamic fluid shift from diuretics: Mild hyperkalemia K5.6. Kayexalate 30 g given. Hyperkalemia resolved. Creatinine improved to 1 4, BUN 44. Lasix 40 mg IV daily. Urine culture does not show growth. Denies lower urinary tract symptoms. UTI ruled out. Urine dark yellow but clear no pus flakes or blood. Nephrology consult viewed and appreciated. Discussed with the shopper marketing manager. Fe Urea 16%, kidneys ultrasound unremarkable with no hydronephrosis or obstructive uropathy. Bladder is reported as incompletely distended with Schuler catheter present 4. Mild elevation in troponin possible due to kidney failure, CHF exacerbation: Patient denies any chest pain. EKG done today shows sinus rhythm with frequent PVCs. No significant ST-T changes as compared to previous EKG of 09/23/2012. 5. COPD: Do not think patient is an exacerbation as no expiratory wheezing. Discontinue Solu-Medrol. 6. Paroxysmal A. fib on Coumadin: She goes frequently in and out of A. fib. INR is therapeutic. Coumadin discontinued as patient has drop in hemoglobin required transfusion. Earlier also. Coumadin was discontinued because of severe anemia and gastric ulcer. I think was resumed as an outpatient later on. I feel patient is not a candidate for anticoagulation. 7 multiple other comorbidities include coronary artery disease, gastric ulcer, diabetes mellitus type 2, fall and decreased functional capacity: Home medication reconciliation done. PT and OT. Patient's daughter want to take her to home. PT recommended home health. Patient is being discharged home. Discharge medication reconciliation done. discharge follow-up instructions completed. Total time spent, exact 35 minutes on discharge meds reconciliation, examination, review of imaging and blood test and discussion with the patient on follow-up instructions. This note was generated with [employer] dictation software. Every effort was made to ensure accuracy, however computerized software application tester mistakes may persist. Discharge Activity: May Not Drive Call your doctor if you observe: Shortness of breath Home Medications: Medications to take at Discharge Atorvastatin Calcium [Lipitor] 40 mg PO QHS 04/19/17 Calcium Carbonate/Vitamin D3 [Calcium 500-Vit D3 600 Tablet] 1 each PO BID 04/19/17 Insulin Detemir [Levemir] 30 unit SQ BID 04/19/17 Isosorbide Mononitrate [Imdur] 30 mg PO DAILY 04/19/17 Mirtazapine [Remeron] 15 mg PO QHS 04/19/17 Multivitamin [Daily Multiple Vitamin] 1 each PO DAILY 04/19/17 Omeprazole 40 mg PO DAILY 04/19/17 Acetaminophen [Tylenol Tablet] 650 mg PO Q6H PRN PRN tablet 08/13/17 Metoprolol Tartrate [Lopressor (beta joan)] 12.5 mg PO BID #60 tab 08/13/17 Furosemide [Lasix] 40 mg PO DAILY #60 tab 09/27/17 Hydralazine HCl 50 mg PO 4X/DAY #90 tab 09/27/17 Nystatin Powder [Mycostatin Powder] 1 applic TOPICAL BID bottle 09/27/17 Following Prescrptions Were Given to Patient: Hydralazine HCl 50 mg PO 4X/DAY #90 tab Primary Care Physician: Eliot Loja MD [Primary Care Provider] - Medical Necessity - Tobacco Use Smoking Status: Never smoker Meaningful Use Info Meaningful Use Diagnoses (Choose all that apply): None applicable Code Visit Inpatient E&M: 45121 Disch Hosp
[2017-09-27 12:10] LABS: Bedside Glucose 239 mg/dL (70-110)
== END 2017-09-27 14:30 | disposition home or self-care (01) | DRG 291 ==
LOC: ED 23:54 → PCU 09-23 02:23
PROVIDERS: Internal Medicine Nephrology; Admitting Provider Family Medicine; Emergency Provider Emergency Medicine; Family Provider Internal Medicine; PCP Internal Medicine; Visit Provider Internal Medicine
DX: I50.43 Acute on chronic combined systolic (congestive) and diastolic (congestive) heart failure (principal); J96.21 Acute and chronic respiratory failure with hypoxia; N17.9 Acute kidney failure, unspecified; J44.1 Chronic obstructive pulmonary disease with (acute) exacerbation; I25.10 Atherosclerotic heart disease of native coronary artery without angina pectoris; E87.5 Hyperkalemia; N18.3 Chronic kidney disease, stage 3 (moderate); E11.22 Type 2 diabetes mellitus with diabetic chronic kidney disease; D63.8 Anemia in other chronic diseases classified elsewhere; I48.0 Paroxysmal atrial fibrillation; Z79.01 Long term (current) use of anticoagulants; Z87.11 Personal history of peptic ulcer disease; Z95.1 Presence of aortocoronary bypass graft; Z79.4 Long term (current) use of insulin
CPT/HCPCS: 36415; 71046; 76770; 80048; 80053; 80069; 81001; 82274; 82570; 82728; 82962; 83540; 83550; 83880; 84132; 84484; 84540; 85014; 85018; 85025; 85610; 85730; 86850; 86900; 86920; 86922; 87086; 87088; 93005; 97110; 97162; 97166; 97530; 99285; J7040; P9016; A4216; J1940

== ENCOUNTER 2017-10-16 22:39 | Inpatient (IN) | payer MEDICARE, SELFPAY ==
[2017-10-16 22:40] VITALS: BP 183/75; PULSE 83; RESP 30; TEMP 36.6; O2SAT 85; BMI 37.4
[2017-10-16 22:44] VITALS: RESP 25; O2SAT 94
--- NOTE | 2017-10-16 22:59 | EKG12_ITS ---
Test Reason : SOB Blood Pressure : / mmHG Vent. Rate : 083 BPM Atrial Rate : 083 BPM P-R Int : 000 ms QRS Dur : 120 ms QT Int : 420 ms P-R-T Axes : 000 -34 035 degrees QTc Int : 493 ms Atrial fibrillation Left axis deviation Right bundle branch block Inferior infarct , age undetermined Anterolateral infarct , age undetermined Abnormal ECG Confirmed by LINDY STOVALL, JENNIFER ([id number]), supervising editor news reel STEFANIA WILDER ([id number]) on 10/20/2017 3:01:50 PM Referred By: KATHY Confirmed By:JENNIFER ISRAEL MD
--- NOTE | 2017-10-16 23:00 | ED.VISSUMM ---
- ER Visit Summary Date of Service: 10/16/17 Chief Complaint: Shortness of breath History of Present Illness: The patient is a 82 F with history of congestive heart failure who presents for shortness of breath onset tonight. Patient states she was sleeping when she began feeling short of breath. She notes that her lower extremities are also more swollen. She denies any chest pain, fever, cough, abdominal pain, nausea or vomiting, back pain or any other complaints other than the shortness of breath and leg swelling. She is on home oxygen at 2 L at baseline. She uses a walker. She sleeps on 2 pillows and is not been sleeping on more. Denies increased dyspnea on exertion. Is not on any blood thinners. Physical Examination: Vital signs: afebrile, hypertensive, hypoxic to 84% on 2lpm, in mid 90's% on 5 lpm NC General: well nourished, well developed, in mild distress Skin: warm, dry, no rash, no pallor HEENT: normocephalic and atraumatic; PERRL, EOMI, moist mucous membranes Cardiovascular: regular rate and rhythm without murmurs, 2+ pitting peripheral edema, 2+ pulses all distal extremities Respiratory: Mild increased work of breathing with tachypnea, lungs are globally diminished with bibasilar rales Abdominal: Abdomen is soft, nontender with normoactive bowel sounds, no guarding or rebound, no masses MSK: Moves all extremities, no deformities, normal strength Neuro: Awake and alert, oriented ?4. No facial droop, sensation and motor function intact and symmetric Test Results: Abnormal Lab Results 10/16/17 10/16/17 10/16/17 22:50 22:50 22:50 WBC 9.1 RBC 3.52 L Hgb 8.9 L Hct 32.9 L MCV 93.5 MCH 25.3 L MCHC 27.1 L RDW 18.5 H RDW Differential 60.5 H Plt Count 232 MPV 10.7 Immature Gran % (Auto) 0.200 Neut % (Auto) 79.0 H Lymph % (Auto) 12.8 L [place] % (Auto) 6.5 Eos % (Auto) 1.2 Baso % (Auto) 0.3 Absolute Neuts (auto) 7.2 Absolute Lymphs (auto) 1.16 Total Counted Not Reportable PT INR APTT Specimen Type Sample Site pH Bicarbonate Actual POC Total CO2 Base Excess O2 Saturation ABG pCO2 ABG pO2 Skyler Test O2 Delivery Device Liter Flow Blood Gas Notified Whom Blood Gas Notified Time Sodium Potassium Chloride Carbon Dioxide Anion Gap BUN Creatinine Estim Creat Clear Calc Est GFR (MDRD) Af Amer Est GFR (MDRD) Non-Af BUN/Creatinine Ratio Glucose Calcium Magnesium Troponin I 0.036 B-Natriuretic Peptide 723.9 H POC Glucose 10/16/17 10/16/17 10/16/17 22:50 22:50 22:50 WBC RBC Hgb Hct MCV MCH MCHC RDW RDW Differential Plt Count MPV Immature Gran % (Auto) Neut % (Auto) Lymph % (Auto) [place] % (Auto) Eos % (Auto) Baso % (Auto) Absolute Neuts (auto) Absolute Lymphs (auto) Total Counted PT 14.8 INR 1.2 APTT 30.3 Specimen Type Sample Site pH Bicarbonate Actual POC Total CO2 Base Excess O2 Saturation ABG pCO2 ABG pO2 Skyler Test O2 Delivery Device Liter Flow Blood Gas Notified Whom Blood Gas Notified Time Sodium 147 H Potassium 4.2 Chloride 109 H Carbon Dioxide 32.0 Anion Gap 6 BUN 23 H Creatinine 1.44 H Estim Creat Clear Calc 24.23 Est GFR (MDRD) Af Amer 45 L Est GFR (MDRD) Non-Af 37 L BUN/Creatinine Ratio 16.0 Glucose 256 H Calcium 8.4 L Magnesium 1.8 Troponin I B-Natriuretic Peptide POC Glucose Clinical Impression(s) from Imaging Studies Chest X-Ray 10/16/17 23:20 IMPRESSION: There is moderate enlargement of the cardiac silhouette with mild edema and small bilateral pleural effusions. Bibasilar opacities can be seen with atelectasis or consolidations. Electronically Signed: Raya Celis MD at 0:03 EDT Tel Direct: [phone], Service support , Emergency Department Course and Treatment: Patient's increased SOB and O2 requirement combined with exam is concerning for acute CHF exacerbation. Pt does not require BiPAP at this time, as she is breathing well with improved oxygenation on increased O2 flow. Pt given SL NTG followed by NTG paste and IV lasix. Patient had EKG with A flutter at normal rate and no ischemic changes. Trop indeterminant and elevated BNP. No leukocytosis or significant lab derangements. Some improvement in pt's resp effort with tx but pt will require further treatment for her increased SOB, O2 requirement and fluid retention 2/2 worsening CHF. Pt admitted for further management of acute CHF exacerbation. Treatment Plan: [] Disposition: [] Impression: Acute CHF exacerbation This note was generated with [employer] dictation software. It may contain incorrect words, spelling, and punctuation that were not noted in review of the chart prior to signing ED Disposition - Plan for ED Patient: Disposition: Acute Care Hospital [facility] Chief Complaint: Shortness of Breath
[2017-10-16 23:15] LABS: Absolute Lymphocyte Count 1.16 X10^3/ul (0.83-4.51); Absolute Neutrophil Count 7.2 X10^3/uL (2.0-7.7); Basophil# 0.03 X10^3/uL; Basophil% 0.3 % (0-1); Eosinophil# 0.11 X10^3/uL; Eosinophils% 1.2 % (0-5); Hematocrit 32.9 % (37-47); Hemoglobin 8.9 g/dl (12.0-15.0); Lymphocyte # 1.16 X10^3/ul (4.0); Lymphocyte % 12.8 % (19-41); Mean Corp Hgb Conc 27.1 g/gl (32-36); Mean Corpuscular Hgb 25.3 pg (27.0-32.0); Mean Corpuscular Volume 93.5 fL (81-99); Mean Platelet Vol. 10.7 fl (6.2-12.0); Monocyte# 0.59 X10^3/uL; Monocyte% 6.5 % (0-10); Neutrophil # 7.16 X10^3/uL (2.7-7.7); Platelet Count 232 K/mm3 (150-450); RBC Distribution Width CV 18.5 % (11.6-14.6); RBC Distribution Width SD 60.5 fl (35.1-43.9); Red Blood Count 3.52 M/mm3 (4.2-5.4); White Blood Count 9.1 K/mm3 (4.4-11.0)
[2017-10-16 23:16] VITALS: BP 180/63; PULSE 83
[2017-10-16] MEDS: Nitroglycerin Oint 1 INCH PACKET TRANSDERM. (23:16)
--- NOTE | 2017-10-16 23:17 | NURSING ---
GAVE NITRO AND WILL WAIT TO GIVE THE PT LASIX, DO NOT WANT TO LOWER HER PRESSURE TOO QUICKLY
[2017-10-16 23:19] LABS: POSITIVE COUNT NO; POSITIVE DIFFERENTIAL NO; POSITIVE MORPHOLOGY NO
--- NOTE | 2017-10-16 23:20 | RAD_ITS ---
STUDY: X-RAY CHEST REASON FOR EXAM: Female, 82 years old. Shortness of breath TECHNIQUE: A single frontal view of the chest was obtained. COMPARISON: September 23, 2017 FINDINGS: The lungs are underaerated. There are patchy opacities in both lung bases. There is minimal blunting of both costophrenic angles. There is moderate enlargement of the cardiac silhouette. Sternotomy wires are present. The mediastinum and hilar regions are unremarkable. The central vessels are prominent. There is atherosclerotic calcification of the thoracic aorta. There are diffuse degenerative changes of the visualized spine. There are degenerative changes in both shoulders. There is no demonstrated abnormality of the visualized upper abdomen. RAD/Chest 1 View (Portable) IMPRESSION: There is moderate enlargement of the cardiac silhouette with mild edema and small bilateral pleural effusions. Bibasilar opacities can be seen with atelectasis or consolidations. Electronically Signed: Raya Celis MD at 0:03 EDT Tel Direct: [phone], Service support ,
[2017-10-17] VITALS (25 sets, daily range): BP systolic 120–182; BP diastolic 38–72; PULSE 64–77; RESP 18–28; TEMP 36.6–37.2; O2SAT 89–98; BMI 34.3; BMI 34.4
[2017-10-17 00:05] LABS: BNP,B-Type NATRIURETIC PEPTIDE 723.9 pg/mL (0-100)
[2017-10-17] MEDS: Furosemide 40 MG/4 ML Vial IV ×3 (00:21→22:02)
[2017-10-17 00:45] LABS: International Normalized Ratio 1.2; Prothrombin Time (Protime)PT. 14.8 SECONDS (11.7-14.9)
[2017-10-17 00:46] LABS: Partial Thromboplast Time 30.3 Seconds (24.1-36.2)
[2017-10-17 00:50] LABS: Anion Gap 6 (5-15); BUN 23 mg/dL (7-18); Calcium,Total 8.4 mg/dL (8.5-10.1); Chloride 109 mmol/L (98-107); Creatinine, Serum 1.44 mg/dL (0.55-1.02); EST Glomerular Filtration Rate 37 mL/min (>60); Est Glom Filt Rate - Afr Amer 45 mL/min (>60); Estimated Creatinine Clearance 24.23 ml/min; Glucose 256 mg/dL (74-106); Potassium 4.2 mmol/L (3.5-5.1); Sodium Level 147 mmol/L (136-145)
--- NOTE | 2017-10-17 01:32 | HP.PCM_ITS ---
Problem List (1) Acute kidney injury superimposed on chronic kidney disease Status: Resolved (2) Hyperkalemia Status: Resolved (3) Acute respiratory failure with hypoxia Status: Resolved (4) Acute on chronic combined systolic and diastolic heart failure Status: Acute (5) COPD exacerbation Status: Resolved (6) Afib Status: Chronic Qualifiers: Atrial fibrillation type: chronic Qualified Code(s): I48.2 - Chronic atrial fibrillation (7) Gastric ulcer Status: Chronic Qualifiers: Gastric ulcer chronicity: unspecified ulcer chronicity (8) Colon polyps Status: Chronic (9) CAD (coronary artery disease) Status: Chronic (10) Chest pain Status: Resolved (11) Fall Status: Resolved (12) Anemia Status: Chronic (13) Chronic renal failure, stage 3 (moderate) Status: Chronic (14) Type 2 diabetes mellitus Status: Acute (15) Poor dental hygiene Status: Chronic (16) History of coronary artery bypass graft Status: Chronic (17) Chronic hypoxemic respiratory failure Status: Chronic History of Present Illness Date of Admission: 10/17/17 Chief Complaint: SOB and increased leg edema The patient is a 82 year old F with a past medical history of systolic and diastolic congestive heart failure, chronic atrial fibrillation, coronary artery disease, history of CABG, diabetes mellitus type 2, hypertension, depression, hyperlipidemia, or dental hygiene, chronic renal failure stage III, colon polyps, history of a gastric ulcer, severe concentric left ventricular hypertrophy, pulmonary hypertension and chronic respiratory failure with hypoxemia who presented to the ED at [facility] on 10/16/17 c.o increasing SOB and increased leg swelling. She was recently admitted to the hospital on 09/23/2017 and discharged on 09/27/2017 with acute on chronic hypoxic respiratory failure, acute on chronic combined systolic and diastolic heart failure and acute kidney injury superimposed on chronic renal failure stage III. Her weight at MS was 196 pounds and 10 ounces and her weight today is 204 pounds and 13 ounces. She c /o orthopnea and BRANCH. She denies CP. She tells me that she sleeps in bed propped on pillows. Denies cough, fever, chills, dysuria. Vital signs at presentation to the emergency room were temperature 97.8, pulse rate 83, blood pressure 183/75, respiratory rate 30 and she was 85% saturated on a 2 L nasal cannula and 94-95% saturated on a 5 L nasal cannula. She normally wears 2-3 LPM. CXR shows pulmonary edema. White blood cell count was within normal limits at 9.1. Hemoglobin was 8.9 and the platelets were normal. Sodium is increased at 147 and the potassium is 4.2. Serum bicarb is 32. The BUN is 23 with a creatinine of 1.44 which is within her baseline. Random blood sugar was 256, troponin was 0.036 and the BNP was 724. She is being admitted to the hospital with acute on chronic systolic and diastolic CHF. Blood pressure is not adequately controlled and this is contributing greatly to diastolic failure at this time. Past Medical History Past Medical History (Chronic Problems): Chronic Problems (Last Updated 08/20/17 @ 16:19 by Kate Temple) Anemia (Chronic) Chronic renal failure, stage 3 (moderate) (Chronic) Poor dental hygiene (Chronic) History of coronary artery bypass graft (Chronic) Chronic hypoxemic respiratory failure (Chronic) Afib (Chronic) Gastric ulcer (Chronic) Colon polyps (Chronic) CAD (coronary artery disease) (Chronic) Medical History: Medical History (Last Reviewed 10/17/17 @ 01:46 by Campos Aquino DO) Colon polyps (Chronic) CAD (coronary artery disease) (Chronic) I25.10 Allergies LEANDER Inhibitors Allergy (Verified 10/16/17 22:39) Unknown Home Medications: Ambulatory Orders Medication Instructions Recorded Atorvastatin Calcium [Lipitor] 40 mg PO QHS 04/19/17 Calcium Carbonate/Vitamin D3 1 each PO BID 04/19/17 [Calcium 500-Vit D3 600 Tablet] Insulin Detemir [Levemir] 30 unit SQ BID 04/19/17 Isosorbide Mononitrate [Imdur] 30 mg PO DAILY 04/19/17 Mirtazapine [Remeron] 15 mg PO QHS 04/19/17 Multivitamin [Daily Multiple 1 each PO DAILY 04/19/17 Vitamin] Omeprazole 40 mg PO DAILY 04/19/17 Acetaminophen [Tylenol Tablet] 650 mg PO Q6H PRN PRN tablet 08/13/17 Metoprolol Tartrate [Lopressor 12.5 mg PO BID #60 tab 08/13/17 (beta joan)] Furosemide [Lasix] 40 mg PO DAILY #60 tab 09/27/17 Hydralazine HCl 50 mg PO 4X/DAY #90 tab 09/27/17 Nystatin Powder [Mycostatin Powder] 1 applic TOPICAL BID bottle 09/27/17 Surgical History: coronary bypass surgery, - - appendectemy, cholecystectemy, tonsil and adenoids, cabg - she cannot having any stents Psychiatric History: Depression 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 Denies: Chills, Fever, Weight Change Eyes: Denies: Vision Change HEENT: Denies: Head Aches, Sinus Congestion, Sinus Drainage Cardiovascular: Reports: Edema, Orthopnea, Paroxysmal Noc. Dyspnea. Denies: Chest Pain, Light Headedness, Palpitations Respiratory: Denies: Cough, Shortness of breath at rest, Sputum production Gastrointestinal: Denies: Abdominal Pain, Diarrhea, Nausea, Vomiting Genitourinary: Denies: Dysuria Musculoskeletal: Reports: Joint stiffness Skin: Denies: Rash, Wounds Neurological: Reports: Balance problems. Denies: Change in Speech, Focal weakness, Seizures Psychiatric: Reports: Depression Endocrine: Denies: Change in Body Habitus Hematologic/ Lymphatic: Denies: Hx of blood clot VTE Information - Inpt Only VTE Present on Admission: No VTE Mechan Device Prophylaxis: SCD's, Knee High DARLEEN Hose VTE Pharm Prophylaxis ordered?: No Reason prophylaxis not ordered:: Treatment Not Indicated - recent GI bleed requiring transfusion. LT aticoagulants were discontinued at the September admission Patient Problems: Active and Suspected Problems (Last Updated 08/20/17 @ 16:19 by Kate Temple) Type 2 diabetes mellitus (Acute) - Physical Exam General: Alert, Oriented x3, Cooperative, - - she is tachypneic and has conversational dyspnea. She appears older than her stated age HEENT: Atraumatic, PERRLA, EOMI, Normocephalic Oral: Dry Mucosa Neck: No Nodes, No Nuchal Rigidity, Trachea Midline, JVD, Bilateral Lungs: Diminished, Tachypneic, - - poor inspiratory effort, + tachypnea and conversational dyspnea with no accessory muscle use Cardiovascular: Normal S1, Normal S2, Irregular Rate - with controlled VR Abdomen: Bowel Sounds Present, Soft, Non Tender, Non-Distended Extremities: No clubbing, No cyanosis, No Calf Tenderness, Edema Skin: No rashes Musculoskeletal: Arthritic Changes Neurological: Cranial nerves II-XII grossly intact, Neuro grossly intact, - - no focal weakness but she does have generalized weakness Psych/Mental Status: Appropriate Vital Signs Temp Pulse Resp BP Pulse Ox 98.5 F 77 26 H 182/72 H 95 10/17/17 01:21 10/17/17 01:21 10/17/17 01:21 10/17/17 01:21 10/17/17 01:21 Oxygen Flow Rate (L/min) 5 Oxygen Delivery Method Room Air Weight: 204 lb 12.951 oz Body Mass Index (BMI) 37.4 Finger Stick Blood Glucose 65 Laboratory Tests Past 24 Hrs 10/16/17 10/16/17 10/16/17 22:50 22:50 22:50 WBC 9.1 RBC 3.52 L Hgb 8.9 L Hct 32.9 L MCV 93.5 MCH 25.3 L MCHC 27.1 L RDW 18.5 H RDW Differential 60.5 H Plt Count 232 MPV 10.7 Immature Gran % (Auto) 0.200 Neut % (Auto) 79.0 H Lymph % (Auto) 12.8 L [place] % (Auto) 6.5 Eos % (Auto) 1.2 Baso % (Auto) 0.3 Absolute Neuts (auto) 7.2 Absolute Lymphs (auto) 1.16 Total Counted Not Reportable PT INR APTT Sodium Potassium Chloride Carbon Dioxide Anion Gap BUN Creatinine Estim Creat Clear Calc Est GFR (MDRD) Af Amer Est GFR (MDRD) Non-Af BUN/Creatinine Ratio Glucose Calcium Troponin I 0.036 B-Natriuretic Peptide 723.9 H 10/16/17 10/16/17 22:50 22:50 WBC RBC Hgb Hct MCV MCH MCHC RDW RDW Differential Plt Count MPV Immature Gran % (Auto) Neut % (Auto) Lymph % (Auto) [place] % (Auto) Eos % (Auto) Baso % (Auto) Absolute Neuts (auto) Absolute Lymphs (auto) Total Counted PT 14.8 INR 1.2 APTT 30.3 Sodium 147 H Potassium 4.2 Chloride 109 H Carbon Dioxide 32.0 Anion Gap 6 BUN 23 H Creatinine 1.44 H Estim Creat Clear Calc 24.23 Est GFR (MDRD) Af Amer 45 L Est GFR (MDRD) Non-Af 37 L BUN/Creatinine Ratio 16.0 Glucose 256 H Calcium 8.4 L Troponin I B-Natriuretic Peptide Assessment/Plan All Active Problems (Last Updated 08/20/17 @ 16:19 by Kate Temple) Type 2 diabetes mellitus (Acute) Acute on chronic combined systolic and diastolic heart failure (Acute) Acute kidney injury superimposed on chronic kidney disease (Resolved) Acute respiratory failure with hypoxia (Resolved) COPD exacerbation (Resolved) Chest pain (Resolved) Fall (Resolved) Hyperkalemia (Resolved) Impressions 1. acute on chronic diastolic and systolic CHF - favor predominantly diastolic at this time due to uncontrolled HTN 2. severe LVH with a 50% EF 3. chronic respiratory failure with hypoxemia 4. pulmonary HTN 5. HTN 6. DM II 7. HLD 8. CAD with a hx of CABG 9. CRF stage 3 10. Recent GI bleeding requiring transfusion of blood products. Anticoagulation discontinued during the September 2007 admission 11. History of gastric ulcer 12. History of colon polyps 13. Chronic atrial fibrillation 14. Depression Admit to a monitored bed on PCU Weigh at admission to the floor and then daily Acccurate I&O's Chest XRAY when she has diuresed to check for improvement Diurese with Lasix 40 mg IV twice daily. She had ARF at the last admission and thought to be related to overdiuresis by nephrology No need to repeat echocardiogram since this was done within the past 4 months. Recheck lab in the AM Fluid restrict to 1500 cc daily Elevate lower extremities Schuler catheter insertion for accurate intake and output and because the patient is markedly short of breath and not able to move around well without severe SOB Will need to teach her and her grand daughter how to adjust Lasix according to daily weights as an OP PT/OT Code Visit Inpatient E&M: 36596 Init Hosp L3
--- NOTE | 2017-10-17 01:35 | NURSING ---
CALLED ER INDUSTRIAL INSULATOR, ROSI, TO LET HIM KNOW WE RECEIVED THE REPORT ON THIS PATIENT AND SHE CAN COME TO THE FLOOR.
[2017-10-17 02:38] LABS: Magnesium 1.8 mg/dL (1.6-2.6)
--- NOTE | 2017-10-17 05:55 | EKG12_ITS ---
Test Reason : AM EKG Blood Pressure : / mmHG Vent. Rate : 077 BPM Atrial Rate : 056 BPM P-R Int : 000 ms QRS Dur : 122 ms QT Int : 408 ms P-R-T Axes : 000 009 048 degrees QTc Int : 461 ms Atrial fibrillation Right bundle branch block Anterior infarct , age undetermined Abnormal ECG Confirmed by YIMI STOVALL, NICOLE ([id number]), sports editor STEFANIA WILDER ([id number]) on 10/23/2017 2:14:42 PM Referred By: DR BRIGGS Confirmed By:NICOLE GELLER MD
[2017-10-17 07:01] LABS: Bedside Glucose 177 mg/dL (70-110)
[2017-10-17 08:02] LABS: Absolute Lymphocyte Count 1.12 X10^3/ul (0.83-4.51); Basophil# 0.03 X10^3/uL; Basophil% 0.3 % (0-1); Eosinophil# 0.13 X10^3/uL; Eosinophils% 1.4 % (0-5); Hematocrit 32.4 % (37-47); Hemoglobin 8.7 g/dl (12.0-15.0); Lymphocyte # 1.12 X10^3/ul (4.0); Lymphocyte % 12.5 % (19-41); Mean Corp Hgb Conc 26.9 g/gl (32-36); Mean Corpuscular Hgb 25.2 pg (27.0-32.0); Mean Corpuscular Volume 93.9 fL (81-99); Mean Platelet Vol. 10.9 fl (6.2-12.0); Monocyte# 0.63 X10^3/uL; Neutrophil # 7.03 X10^3/uL (2.7-7.7); Neutrophil % 78.5 % (47-70); Platelet Count 230 K/mm3 (150-450); RBC Distribution Width CV 18.5 % (11.6-14.6); RBC Distribution Width SD 59.9 fl (35.1-43.9); Red Blood Count 3.45 M/mm3 (4.2-5.4)
[2017-10-17 08:03] LABS: POSITIVE COUNT NO; POSITIVE DIFFERENTIAL NO; POSITIVE MORPHOLOGY NO
[2017-10-17 08:38] LABS: Anion Gap 5 (5-15); BUN 24 mg/dL (7-18); BUN/Creat Ratio 17.4 RATIO (10-20); Calcium,Total 8.6 mg/dL (8.5-10.1); Chloride 111 mmol/L (98-107); Creatinine, Serum 1.38 mg/dL (0.55-1.02); EST Glomerular Filtration Rate 39 mL/min (>60); Est Glom Filt Rate - Afr Amer 47 mL/min (>60); Estimated Creatinine Clearance 27.61 ml/min; Glucose 170 mg/dL (74-106); Potassium 4.8 mmol/L (3.5-5.1); Sodium Level 151 mmol/L (136-145)
[2017-10-17] MEDS: Multivitamins,Therapeutic Tablet 1 TABLET PO (08:39)
[2017-10-17] MEDS: hydrALAZINE 50 MG Tablet PO ×4 (08:39→22:01)
[2017-10-17] MEDS: Isosorbide Mononitrate 30 MG Tablet PO (08:40)
[2017-10-17] MEDS: Metoprolol Tartrate 25 MG Tablet 12.5 MG PO ×2 (08:42→22:02)
[2017-10-17] MEDS: Nystatin Powder 15gm Bottle 1 APPLIC TOPICAL ×2 (08:44→22:03)
[2017-10-17] MEDS: Calcium Carb/Vitamin D 1 TABLET Tablet PO ×2 (08:45→22:03)
[2017-10-17] MEDS: Pantoprazole Sodium 40 MG Tablet PO (08:45)
[2017-10-17] MEDS: 0.9% NaCl Peripheral Flush Adult/Peds IV ×2 (08:47→22:10)
[2017-10-17 11:30] LABS: Bedside Glucose 263 mg/dL (70-110)
--- NOTE | 2017-10-17 11:42 | PCM.PN.HOSP ---
Patient Problems: Active and Suspected Problems (Last Reviewed 10/17/17 @ 01:46 by Campos Aquino DO) Type 2 diabetes mellitus (Acute) Subjective: Patient is an 82-year-old female past medical history of systolic and diastolic congestive heart failure, chronic atrial fibrillation, CAD status post CABG, diabetes mellitus, hypertension, depression, hyperlipidemia, CKD 3, pulmonary hypertension and chronic respiratory failure on home oxygen. She is admitted by the ED on 10/16/2017 with complaint of worsening shortness of breath and lower extremity edema. Chest x-ray on admission showed pulmonary edema. Respiratory rate was 30 and she was saturating at 85% on 2 L of oxygen which increased to 94-95% on 5 L of oxygen. Troponin was 0.036 on admission and BNP was 724. She has been managed for acute CHF exacerbation. She has been actively diuresed with IV Lasix. Patient seen and examined this morning. She was obviously short of breath and could not finish sentences very well. She was on 5 L of oxygen via nasal cannula. She denied any cough or chest pain, any abdominal pain, any fever or chills, any diarrhea vomiting. Swelling in her lower extremities is improving slightly. She says shortness of breath is just like at her baseline even though I commented that he looked much worse. Review of systems otherwise negative. Of note patient states she is usually on 2 L of oxygen at home she was currently on 5 L. Vitals/I&O's: Vital Signs Temp Pulse Resp BP Pulse Ox 98.2 F 71 22 H 154/47 H 96 10/17/17 08:52 10/17/17 08:52 10/17/17 08:52 10/17/17 08:52 10/17/17 08:52 Oxygen Flow Rate (L/min) 5 Oxygen Delivery Method Nasal Cannula Weight: 195 lb 12.328 oz Body Mass Index (BMI) 34.3 Intake and Output for Last 24 Hours 10/15/17 10/16/17 10/17/17 23:59 23:59 23:59 Output Total 950 / 950 Balance -950 / -950 General: Alert, Oriented x3, Cooperative, - - Moderate respiratory distress. HEENT: Atraumatic, PERRLA, EOMI, Normocephalic Oral: Moist Mucosa Neck: Supple, No JVD, Negative Carotid Bruits Lungs: Clear to auscultation, Diminished, Short of Breath, - - Has decreased breath sounds bibasilarly with fine crackles in mid and lower lung johnson. Cardiovascular: Normal S1, Normal S2, No murmurs, - - Irregularly irregular heart rhythm Abdomen: Bowel Sounds Present, Soft, Non Tender, Non-Distended, No Hepato-splenomegaly Extremities: Capillary Refill Less than 3 Seconds, - - Has 1+ bipedal pitting edema. Skin: No rashes, No breakdown Musculoskeletal: No Tenderness to Palpation of Joints or Extremities Lymphatic: No Cervical, Supraclavicular, or Inguinal Adenopathy Neurological: Cranial nerves II-XII grossly intact Psych/Mental Status: Normal Affect, Appropriate, Alert and oriented to time, place, person, mood and affect Laboratory Results 10/17/17 06:42: POC Glucose 177 H 10/17/17 07:45: WBC 9.0, RBC 3.45 L, Hgb 8.7 L, Hct 32.4 L, MCV 93.9, MCH 25.2 L, MCHC 26.9 L, RDW 18.5 H, RDW Differential 59.9 H, Plt Count 230, MPV 10.9, Immature Gran % (Auto) 0.300, Neut % (Auto) 78.5 H, Lymph % (Auto) 12.5 L, [place] % (Auto) 7.0, Eos % (Auto) 1.4, Baso % (Auto) 0.3, Absolute Neuts (auto) 7.0, Absolute Lymphs (auto) 1.12, Total Counted Not Reportable 10/17/17 07:45: Sodium 151 H, Potassium 4.8, Chloride 111 H, Carbon Dioxide 35.0 H, Anion Gap 5, BUN 24 H, Creatinine 1.38 H, Estim Creat Clear Calc 27.61, Est GFR (MDRD) Af Amer 47 L, Est GFR (MDRD) Non-Af 39 L, BUN/Creatinine Ratio 17.4, Glucose 170 H, Calcium 8.6 10/17/17 11:26: POC Glucose 263 H Current Medications Acetaminophen (Tylenol) 650 mg PO Q6H PRN PRN PRN Reason: Mild Pain (scale 0-3)/T>100.7 Atorvastatin Calcium (Lipitor) 40 mg PO QHS [facility] Calcium/Vitamin D (Os-West 500mg + D) 1 tablet PO BID [facility] Last Admin: 10/17/17 08:45 Dose: 1 tablet Furosemide (Lasix) 40 mg IV Q12 [facility] Last Admin: 10/17/17 08:42 Dose: 40 mg Hydralazine HCl (Apresoline) 50 mg PO 4X/DAY [facility] Last Admin: 10/17/17 08:39 Dose: 50 mg Insulin Glargine (Lantus (Bkc)) 30 units SC BID [facility] Last Admin: 10/17/17 08:40 Dose: 30 u Insulin Human Lispro (Humalog Kwikpen (Bkc)) 0 unit SC ACHS [facility] PRN Reason: Protocol Stop: 10/21/17 12:00 Isosorbide Mononitrate (Imdur) 30 mg PO DAILY [facility] Last Admin: 10/17/17 08:40 Dose: 30 mg Magnesium Hydroxide (Milk Of Magnesia) 30 ml PO DAILY PRN PRN Reason: Constipation Metoprolol Tartrate (Lopressor (Beta Rah)) 12.5 mg PO BID [facility] Last Admin: 10/17/17 08:42 Dose: 12.5 mg Mirtazapine (Remeron) 15 mg PO QHS [facility] Multivitamins (Multivitamin) 1 tablet PO DAILY@0800 [facility] Last Admin: 10/17/17 08:39 Dose: 1 tablet Nystatin (Mycostatin Powder) 1 applic TOPICAL BID [facility] PRN Reason: Protocol Last Admin: 10/17/17 08:44 Dose: 1 applicatio Ondansetron HCl (Zofran) 4 mg IV Q8H PRN PRN PRN Reason: Nausea Pantoprazole Sodium (Protonix) 40 mg PO DAILY [facility] Last Admin: 10/17/17 08:45 Dose: 40 mg Sodium Chloride () 5 - 30 ml IV UD PRN PRN Reason: SALINE FLUSH Last Admin: 10/17/17 08:47 Dose: 10 ml Medical Necessity - Tobacco Use Smoking Status: Never smoker Tobacco Use: Non-smoker Assessment/Plan All Active Problems (Last Reviewed 10/17/17 @ 01:46 by Campos Aquino DO) Type 2 diabetes mellitus (Acute) Acute on chronic combined systolic and diastolic heart failure (Acute) Acute kidney injury superimposed on chronic kidney disease (Resolved) Acute respiratory failure with hypoxia (Resolved) COPD exacerbation (Resolved) Chest pain (Resolved) Fall (Resolved) Hyperkalemia (Resolved) 1. Acute CHF excerbation Still short of breath even on 5 L of oxygen. Baseline is usually on 2 L of oxygen. . Tachypneic this morning with respiratory rate of 22 even on 5 L of oxygen was saturating at 96%. Input and output showed negative balance of 950 mils though I doubt this is very accurate as patient does not have Schuler catheter in place. CXR showed moderate enlargement of cardiac silhouette with mild edema and small bilateral pleural effusions. Basilar opacities seen with atelectasis or consolidations Patient has been tachypneic all night with respiratory rate in the high 20s and low 30s. Labs show bicarb going up to 35 which might be compensatory for her retaining CO2 though I doubt this is likely as she has high respiratory rate. Patient has been actively diuresed with IV Lasix 40 twice daily Concern the patient was tired out from breathing so fast, going to respiratory arrest. I will therefore start patient on CPAP and get stat ABG. continue IV lasix 40mg bid; strict input and output charting. 2D echo(08/11/17): severe concentric LVH, with EF of 50% and mild systolic segmental dysfunction. Hypokinesia of the lateral apex, mid anterosepta and apex. PA systolic pressure is 46mmHg. also on hydralazine and Imdur. Was on metoprolol prior to admission, so will continue restrict fluids to 1500mls daily 2. Acute on chronic hypoxic respiratory failure due to CHF exacerbation RR is in high 20s and 30s, and is on 5L of oxygen. Usually on 2L of oxygen at home CXR as documented above ABG done showed pH of 7.41, with pCO2 of 51 and pO2 of ~82. patient reviewed again, and breathing much better and looking more comfortable. will try to wean off and titrate oxygen to maintain saturation >92% 3. CAD s/p CABG: stable. On aspirin, statin, metoprolol. Will continue 4. CKD 3 Cr is 1.38 today. Baseline ~ 1.4 will monitor 5. HTN: poor control. On hydralazine, metoprolol. Not on LEANDER-I due to allergy. Will continue to monitor 6. DM2: on insulin lantus 30IU bid and ISS. Accuchecks ACHS. Will monitor 7. Chronic atrial fibrillation: stable. On metoprolol. Not on blood thinner o/a of history of GI bled. Not on anticoagulation since September 2017. 8.Depression: on remeron 9. DVT prophylaxis: SCDs PT/OT consulted This note was generated with [employer] software. It may contain incorrect words, spelling, and punctuation that were not noted in checking the note before signing. Code Visit Inpatient E&M: 47716 Subs Hosp L3
--- NOTE | 2017-10-17 11:59 | PN_ITS ---
Patient Problems: Active and Suspected Problems (Last Reviewed 10/17/17 @ 01:46 by Campos Aquino DO) Type 2 diabetes mellitus (Acute) Subjective: Patient is an 82-year-old female past medical history of systolic and diastolic congestive heart failure, chronic atrial fibrillation, CAD status post CABG, diabetes mellitus, hypertension, depression, hyperlipidemia, CKD 3, pulmonary hypertension and chronic respiratory failure on home oxygen. She is admitted by the ED on 10/16/2017 with complaint of worsening shortness of breath and lower extremity edema. Chest x-ray on admission showed pulmonary edema. Respiratory rate was 30 and she was saturating at 85% on 2 L of oxygen which increased to 94 -95% on 5 L of oxygen. Troponin was 0.036 on admission and BNP was 724. She has been managed for acute CHF exacerbation. She has been actively diuresed with IV Lasix. Patient seen and examined this morning. She was obviously short of breath and could not finish sentences very well. She was on 5 L of oxygen via nasal cannula. She denied any cough or chest pain, any abdominal pain, any fever or chills, any diarrhea vomiting. Swelling in her lower extremities is improving slightly. She says shortness of breath is just like at her baseline even though I commented that he looked much worse. Review of systems otherwise negative. Of note patient states she is usually on 2 L of oxygen at home she was currently on 5 L. Vitals/I&O's: Vital Signs Temp Pulse Resp BP Pulse Ox 98.2 F 71 22 H 154/47 H 96 10/17/17 08:52 10/17/17 08:52 10/17/17 08:52 10/17/17 08:52 10/17/17 08:52 Oxygen Flow Rate (L/min) 5 Oxygen Delivery Method Nasal Cannula Weight: 195 lb 12.328 oz Body Mass Index (BMI) 34.3 Intake and Output for Last 24 Hours 10/15/17 10/16/17 10/17/17 23:59 23:59 23:59 Output Total 950 / 950 Balance -950 / -950 General: Alert, Oriented x3, Cooperative, - - Moderate respiratory distress. HEENT: Atraumatic, PERRLA, EOMI, Normocephalic Oral: Moist Mucosa Neck: Supple, No JVD, Negative Carotid Bruits Lungs: Clear to auscultation, Diminished, Short of Breath, - - Has decreased breath sounds bibasilarly with fine crackles in mid and lower lung johnson. Cardiovascular: Normal S1, Normal S2, No murmurs, - - Irregularly irregular heart rhythm Abdomen: Bowel Sounds Present, Soft, Non Tender, Non-Distended, No Hepato- splenomegaly Extremities: Capillary Refill Less than 3 Seconds, - - Has 1+ bipedal pitting edema. Skin: No rashes, No breakdown Musculoskeletal: No Tenderness to Palpation of Joints or Extremities Lymphatic: No Cervical, Supraclavicular, or Inguinal Adenopathy Neurological: Cranial nerves II-XII grossly intact Psych/Mental Status: Normal Affect, Appropriate, Alert and oriented to time, place, person, mood and affect Laboratory Results 10/17/17 06:42: POC Glucose 177 H 10/17/17 07:45: WBC 9.0, RBC 3.45 L, Hgb 8.7 L, Hct 32.4 L, MCV 93.9, MCH 25.2 L , MCHC 26.9 L, RDW 18.5 H, RDW Differential 59.9 H, Plt Count 230, MPV 10.9, Immature Gran % (Auto) 0.300, Neut % (Auto) 78.5 H, Lymph % (Auto) 12.5 L, [place] % (Auto) 7.0, Eos % (Auto) 1.4, Baso % (Auto) 0.3, Absolute Neuts (auto) 7.0, Absolute Lymphs (auto) 1.12, Total Counted Not Reportable 10/17/17 07:45: Sodium 151 H, Potassium 4.8, Chloride 111 H, Carbon Dioxide 35.0 H, Anion Gap 5, BUN 24 H, Creatinine 1.38 H, Estim Creat Clear Calc 27.61, Est GFR (MDRD) Af Amer 47 L, Est GFR (MDRD) Non-Af 39 L, BUN/Creatinine Ratio 17.4, Glucose 170 H, Calcium 8.6 10/17/17 11:26: POC Glucose 263 H Current Medications Acetaminophen (Tylenol) 650 mg PO Q6H PRN PRN PRN Reason: Mild Pain (scale 0-3)/T>100.7 Atorvastatin Calcium (Lipitor) 40 mg PO QHS [facility] Calcium/Vitamin D (Os-West 500mg + D) 1 tablet PO BID [facility] Last Admin: 10/17/17 08:45 Dose: 1 tablet Furosemide (Lasix) 40 mg IV Q12 [facility] Last Admin: 10/17/17 08:42 Dose: 40 mg Hydralazine HCl (Apresoline) 50 mg PO 4X/DAY [facility] Last Admin: 10/17/17 08:39 Dose: 50 mg Insulin Glargine (Lantus (Bkc)) 30 units SC BID [facility] Last Admin: 10/17/17 08:40 Dose: 30 u Insulin Human Lispro (Humalog Kwikpen (Bkc)) 0 unit SC ACHS [facility] PRN Reason: Protocol Stop: 10/21/17 12:00 Isosorbide Mononitrate (Imdur) 30 mg PO DAILY [facility] Last Admin: 10/17/17 08:40 Dose: 30 mg Magnesium Hydroxide (Milk Of Magnesia) 30 ml PO DAILY PRN PRN Reason: Constipation Metoprolol Tartrate (Lopressor (Beta Rah)) 12.5 mg PO BID [facility] Last Admin: 10/17/17 08:42 Dose: 12.5 mg Mirtazapine (Remeron) 15 mg PO QHS [facility] Multivitamins (Multivitamin) 1 tablet PO DAILY@0800 [facility] Last Admin: 10/17/17 08:39 Dose: 1 tablet Nystatin (Mycostatin Powder) 1 applic TOPICAL BID [facility] PRN Reason: Protocol Last Admin: 10/17/17 08:44 Dose: 1 applicatio Ondansetron HCl (Zofran) 4 mg IV Q8H PRN PRN PRN Reason: Nausea Pantoprazole Sodium (Protonix) 40 mg PO DAILY [facility] Last Admin: 10/17/17 08:45 Dose: 40 mg Sodium Chloride () 5 - 30 ml IV UD PRN PRN Reason: SALINE FLUSH Last Admin: 10/17/17 08:47 Dose: 10 ml Medical Necessity - Tobacco Use Smoking Status: Never smoker Tobacco Use: Non-smoker Assessment/Plan All Active Problems (Last Reviewed 10/17/17 @ 01:46 by Campos Aquino DO) Type 2 diabetes mellitus (Acute) Acute on chronic combined systolic and diastolic heart failure (Acute) Acute kidney injury superimposed on chronic kidney disease (Resolved) Acute respiratory failure with hypoxia (Resolved) COPD exacerbation (Resolved) Chest pain (Resolved) Fall (Resolved) Hyperkalemia (Resolved) 1. Acute CHF excerbation * Still short of breath even on 5 L of oxygen. Baseline is usually on 2 L of oxygen. * . Tachypneic this morning with respiratory rate of 22 even on 5 L of oxygen was saturating at 96%. * Input and output showed negative balance of 950 mils though I doubt this is very accurate as patient does not have Schuler catheter in place. * CXR showed moderate enlargement of cardiac silhouette with mild edema and small bilateral pleural effusions. Basilar opacities seen with atelectasis or consolidations * Patient has been tachypneic all night with respiratory rate in the high 20s and low 30s. * Labs show bicarb going up to 35 which might be compensatory for her retaining CO2 though I doubt this is likely as she has high respiratory rate. * Patient has been actively diuresed with IV Lasix 40 twice daily * Concern the patient was tired out from breathing so fast, going to respiratory arrest. I will therefore start patient on CPAP and get stat ABG. * continue IV lasix 40mg bid; strict input and output charting. * 2D echo(08/11/17): severe concentric LVH, with EF of 50% and mild systolic segmental dysfunction. Hypokinesia of the lateral apex, mid anterosepta and apex. PA systolic pressure is 46mmHg. * also on hydralazine and Imdur. Was on metoprolol prior to admission, so will continue * restrict fluids to 1500mls daily * 2. Acute on chronic hypoxic respiratory failure due to CHF exacerbation * RR is in high 20s and 30s, and is on 5L of oxygen. Usually on 2L of oxygen at home * CXR as documented above * ABG done showed pH of 7.41, with pCO2 of 51 and pO2 of ~82. * patient reviewed again, and breathing much better and looking more comfortable. * will try to wean off and titrate oxygen to maintain saturation >92% * 3. CAD s/p CABG: stable. On aspirin, statin, metoprolol. Will continue 4. CKD 3 * Cr is 1.38 today. Baseline ~ 1.4 * will monitor * 5. HTN: poor control. On hydralazine, metoprolol. Not on LEANDER-I due to allergy. Will continue to monitor 6. DM2: on insulin lantus 30IU bid and ISS. Accuchecks ACHS. Will monitor 7. Chronic atrial fibrillation: stable. On metoprolol. Not on blood thinner o/a of history of GI bled. Not on anticoagulation since September 2017. 8.Depression: on remeron 9. DVT prophylaxis: SCDs PT/OT consulted This note was generated with [employer] software. It may contain incorrect words, spelling, and punctuation that were not noted in checking the note before signing. Code Visit Inpatient E&M: 78891 Subs Hosp L3
[2017-10-17 12:21] LABS: Allen Test POS; Base Excess 8 mmol/L (-2 to +2); Bicarbonate 32.8 mmol/L (22-26); Blood Gas Specimen Type ART; O2 Delivery Device Nasal Can; PO2 82 mmHG (75-100); SITE L Radial; SO2 96 % (95-99); Time Given 1205; Total Carbon Dioxide 34 mmol/L; pCO2 51.6 mmHg (35-45); pH 7.41 (7.35-7.45)
[2017-10-17] MEDS: Insulin Lispro 100 UNIT/ML INSULN.PEN SC ×3 (13:19→22:01)
--- NOTE | 2017-10-17 15:32 | CASEMGMT ---
Readmission chart review-See SW assessment from 09/23/17, pt states no changes at this time. Pt has an aide 5 hours on friday and through [facility] [phone] and also has a CM through [facility], Samaria Phillips. Message left for Samaria at this time of pt admission. Call to [facility] to notify them of pt admission at this time. Per [facility], they may be able to add RN, PT/OT, if needed at discharge. Pt would like to go home at discharge. CM to follow therapy and pt for any further d/c planning/needs. Green sheet left on chart at this time. [facility] RN CM
[2017-10-17 16:31] LABS: Bedside Glucose 243 mg/dL (70-110)
[2017-10-17] MEDS: Atorvastatin Calcium 40 MG Tablet PO (22:02)
[2017-10-17] MEDS: Mirtazapine 15 MG Tablet PO (22:04)
[2017-10-17 22:20] LABS: Bedside Glucose 233 mg/dL (70-110)
[2017-10-18] VITALS (13 sets, daily range): BP systolic 140–155; BP diastolic 62–72; PULSE 66–73; RESP 18–20; TEMP 36.3–36.9; O2SAT 80–95
[2017-10-18 06:55] LABS: Bedside Glucose 183 mg/dL (70-110)
[2017-10-18 08:23] LABS: Absolute Lymphocyte Count 1.07 X10^3/ul (0.83-4.51); Basophil# 0.01 X10^3/uL; Basophil% 0.1 % (0-1); Eosinophil# 0.09 X10^3/uL; Hematocrit 33.8 % (37-47); Lymphocyte # 1.07 X10^3/ul (4.0); Lymphocyte % 12.3 % (19-41); Mean Corp Hgb Conc 26.6 g/gl (32-36); Mean Corpuscular Hgb 24.5 pg (27.0-32.0); Mean Corpuscular Volume 91.8 fL (81-99); Mean Platelet Vol. 10.8 fl (6.2-12.0); Monocyte# 0.56 X10^3/uL; Monocyte% 6.4 % (0-10); Neutrophil # 6.99 X10^3/uL (2.7-7.7); Neutrophil % 80.1 % (47-70); Platelet Count 224 K/mm3 (150-450); RBC Distribution Width CV 18.4 % (11.6-14.6); RBC Distribution Width SD 61.9 fl (35.1-43.9); Red Blood Count 3.68 M/mm3 (4.2-5.4); White Blood Count 8.7 K/mm3 (4.4-11.0)
[2017-10-18 08:25] LABS: POSITIVE COUNT NO; POSITIVE DIFFERENTIAL NO; POSITIVE MORPHOLOGY NO
[2017-10-18 08:35] LABS: Anion Gap 3 (5-15); BUN 24 mg/dL (7-18); BUN/Creat Ratio 19.8 RATIO (10-20); Calcium,Total 8.8 mg/dL (8.5-10.1); Chloride 107 mmol/L (98-107); Creatinine, Serum 1.21 mg/dL (0.55-1.02); EST Glomerular Filtration Rate 45 mL/min (>60); Est Glom Filt Rate - Afr Amer 55 mL/min (>60); Estimated Creatinine Clearance 31.49 ml/min; Glucose 182 mg/dL (74-106); Potassium 4.3 mmol/L (3.5-5.1); Sodium Level 147 mmol/L (136-145)
[2017-10-18] MEDS: Isosorbide Mononitrate 30 MG Tablet PO (08:50)
[2017-10-18] MEDS: Insulin Lispro 100 UNIT/ML INSULN.PEN SC ×2 (08:50→11:55)
[2017-10-18] MEDS: Multivitamins,Therapeutic Tablet 1 TABLET PO (08:50)
[2017-10-18] MEDS: hydrALAZINE 50 MG Tablet PO ×2 (08:50→13:49)
[2017-10-18] MEDS: Furosemide 40 MG/4 ML Vial IV (08:51)
[2017-10-18] MEDS: Metoprolol Tartrate 25 MG Tablet 12.5 MG PO (08:51)
[2017-10-18] MEDS: Calcium Carb/Vitamin D 1 TABLET Tablet PO (08:52)
[2017-10-18] MEDS: Pantoprazole Sodium 40 MG Tablet PO (08:52)
[2017-10-18] MEDS: Nystatin Powder 15gm Bottle 1 APPLIC TOPICAL (08:52)
--- NOTE | 2017-10-18 11:21 | PCM.PN.HOSP ---
Patient Problems: Active and Suspected Problems (Last Reviewed 10/17/17 @ 01:46 by Campos Aquino DO) Type 2 diabetes mellitus (Acute) Subjective: Patient is an 82-year-old female past medical history of systolic and diastolic congestive heart failure, chronic atrial fibrillation, CAD status post CABG, diabetes mellitus, hypertension, depression, hyperlipidemia, CKD 3, pulmonary hypertension and chronic respiratory failure on home oxygen. She is admitted by the ED on 10/16/2017 with complaint of worsening shortness of breath and lower extremity edema. Chest x-ray on admission showed pulmonary edema. Respiratory rate was 30 and she was saturating at 85% on 2 L of oxygen which increased to 94-95% on 5 L of oxygen. Troponin was 0.036 on admission and BNP was 724. She has been managed for acute CHF exacerbation. She has been actively diuresed with IV Lasix. She has remained stable. Seen and examined. She feels very well and has no complaints this morning. Oxygen level was 4 L and she felt very comfortable. She is usually on around 2 L at home. When oxygen level was 22 L, patient still very felt very comfortable. She denied any cough shortness of breath, any chest pain, any abdominal pain, any diarrhea vomiting. Review of systems otherwise negative, labs and vitals reviewed. Vitals/I&O's: Vital Signs Temp Pulse Resp BP Pulse Ox 97.9 F 67 20 H 155/66 H 95 10/18/17 10:02 10/18/17 10:59 10/18/17 10:02 10/18/17 10:02 10/18/17 11:09 Oxygen Flow Rate (L/min) [ 2 AMBULATION with Oxygen] Oxygen Flow Rate (L/min) [ 0 AMBULATING on Room Air] Oxygen Flow Rate (L/min) [At 0 REST on Room Air] Oxygen Flow Rate (L/min) 4 Oxygen Delivery Method Nasal Cannula Weight: 197 lb 1.492 oz Body Mass Index (BMI) 34.3 Intake and Output for Last 24 Hours 10/16/17 10/17/17 10/18/17 23:59 23:59 23:59 Intake Total 740 / 740 0 / 0 Output Total 2700 / 2700 450 / 450 Balance -1960 / -1960 -450 / -450 General: Alert, Oriented x3, Cooperative, No apparent distress HEENT: Atraumatic, PERRLA, EOMI, Normocephalic Oral: Moist Mucosa Neck: Supple, No JVD, Negative Carotid Bruits Lungs: - - Has very few crackles in mid and lower lung johnson bilaterally. Normal air movement bilaterally. Cardiovascular: Regular rate, Regular Rhythm, Normal S1, Normal S2, No murmurs Abdomen: Bowel Sounds Present, Soft, Non Tender, Non-Distended, No Hepato-splenomegaly Extremities: No clubbing, No cyanosis, No edema, Capillary Refill Less than 3 Seconds Skin: No rashes, No breakdown Musculoskeletal: No Tenderness to Palpation of Joints or Extremities Lymphatic: No Cervical, Supraclavicular, or Inguinal Adenopathy Neurological: Cranial nerves II-XII grossly intact Psych/Mental Status: Normal Affect, Appropriate, Alert and oriented to time, place, person, mood and affect Laboratory Results 10/17/17 11:26: POC Glucose 263 H 10/17/17 12:15: Specimen Type ART, Sample Site L Radial, pH 7.41, Bicarbonate Actual 32.8 H, POC Total CO2 34, Base Excess 8 H, O2 Saturation 96, ABG pCO2 51.6 H, ABG pO2 82, Skyler Test POS, O2 Delivery Device Nasal Can, Liter Flow 5.0, Blood Gas Notified Whom ABHI STOVALL, Blood Gas Notified Time 1205 10/17/17 16:20: POC Glucose 243 H 10/17/17 21:59: POC Glucose 233 H 10/18/17 06:50: POC Glucose 183 H 10/18/17 08:00: WBC 8.7, RBC 3.68 L, Hgb 9.0 L, Hct 33.8 L, MCV 91.8, MCH 24.5 L, MCHC 26.6 L, RDW 18.4 H, RDW Differential 61.9 H, Plt Count 224, MPV 10.8, Immature Gran % (Auto) 0.100, Neut % (Auto) 80.1 H, Lymph % (Auto) 12.3 L, [place] % (Auto) 6.4, Eos % (Auto) 1.0, Baso % (Auto) 0.1, Absolute Neuts (auto) 7.0, Absolute Lymphs (auto) 1.07, Total Counted Not Reportable 10/18/17 08:00: Sodium 147 H, Potassium 4.3, Chloride 107, Carbon Dioxide 37.0 H, Anion Gap 3 L, BUN 24 H, Creatinine 1.21 H, Estim Creat Clear Calc 31.49, Est GFR (MDRD) Af Amer 55 L, Est GFR (MDRD) Non-Af 45 L, BUN/Creatinine Ratio 19.8, Glucose 182 H, Calcium 8.8 Current Medications Acetaminophen (Tylenol) 650 mg PO Q6H PRN PRN PRN Reason: Mild Pain (scale 0-3)/T>100.7 Atorvastatin Calcium (Lipitor) 40 mg PO QHS [facility] Last Admin: 10/17/17 22:02 Dose: 40 mg Calcium/Vitamin D (Os-West 500mg + D) 1 tablet PO BID [facility] Last Admin: 10/18/17 08:52 Dose: 1 tablet Furosemide (Lasix) 40 mg IV Q12 [facility] Last Admin: 10/18/17 08:51 Dose: 40 mg Hydralazine HCl (Apresoline) 50 mg PO 4X/DAY [facility] Last Admin: 10/18/17 08:50 Dose: 50 mg Insulin Glargine (Lantus (Bkc)) 30 units SC BID [facility] Last Admin: 10/18/17 08:51 Dose: 30 u Insulin Human Lispro (Humalog Kwikpen (Bkc)) 0 unit SC ACHS [facility] PRN Reason: Protocol Stop: 10/21/17 16:01 Last Admin: 10/18/17 08:50 Dose: 1 u Isosorbide Mononitrate (Imdur) 30 mg PO DAILY [facility] Last Admin: 10/18/17 08:50 Dose: 30 mg Magnesium Hydroxide (Milk Of Magnesia) 30 ml PO DAILY PRN PRN Reason: Constipation Metoprolol Tartrate (Lopressor (Beta Rah)) 12.5 mg PO BID [facility] Last Admin: 10/18/17 08:51 Dose: 12.5 mg Mirtazapine (Remeron) 15 mg PO QHS [facility] Last Admin: 10/17/17 22:04 Dose: 15 mg Multivitamins (Multivitamin) 1 tablet PO DAILY@0800 [facility] Last Admin: 10/18/17 08:50 Dose: 1 tablet Nystatin (Mycostatin Powder) 1 applic TOPICAL BID [facility] PRN Reason: Protocol Last Admin: 10/18/17 08:52 Dose: 1 applicatio Ondansetron HCl (Zofran) 4 mg IV Q8H PRN PRN PRN Reason: Nausea Pantoprazole Sodium (Protonix) 40 mg PO DAILY [facility] Last Admin: 10/18/17 08:52 Dose: 40 mg Sodium Chloride () 5 - 30 ml IV UD PRN PRN Reason: SALINE FLUSH Last Admin: 10/17/17 22:10 Dose: 10 ml Medical Necessity - Tobacco Use Smoking Status: Never smoker Tobacco Use: Non-smoker Assessment/Plan All Active Problems (Last Reviewed 10/17/17 @ 01:46 by Campos Aquino DO) Type 2 diabetes mellitus (Acute) Acute on chronic combined systolic and diastolic heart failure (Acute) Acute kidney injury superimposed on chronic kidney disease (Resolved) Acute respiratory failure with hypoxia (Resolved) COPD exacerbation (Resolved) Chest pain (Resolved) Fall (Resolved) Hyperkalemia (Resolved) 1. Acute CHF excerbation Resolving. Was on 4 L of oxygen and breathing very well; during review oxygen level 10 down to 2 L and patient was still very comfortable. In negative balance of 1.9 L over last 24 hours patient ambulated on 2L of oxygen; saturation dropped to 88%, and increased to 91-92% whilst ambulating on 3L of oxygen 2D echo(08/11/17): severe concentric LVH, with EF of 50% and mild systolic segmental dysfunction. Hypokinesia of the lateral apex, mid anteroseptal and apex. PA systolic pressure is 46mmHg. also on hydralazine and Imdur as well as metoprolol. restrict fluids to 1500mls daily 2. Acute on chronic hypoxic respiratory failure due to CHF exacerbation Resolving. Patient on 4 L of oxygen which was reduced to 2 L of oxygen and patient still saturated well. Saturation on ambulation with oxygen ABG done (10/17/17): pH of 7.41, wih maintain on home oxygen, to increase to 3L as needed. 3. MEtabolic alkalosis, due to contraction alkalosis bicarb is 37; this is probably due to IV lasix administration will monitor 4. CAD s/p CABG: stable. On aspirin, statin, metoprolol. 5. CKD 3 Cr is 1.21 today. Baseline ~ 1.4 resolving will monitor 6. HTN: control has improved. On hydralazine, metoprolol. Not on LEANDER-I due to allergy. 7. DM2: on insulin lantus 30IU bid and ISS. Accuchecks ACHS. Will monitor 8. Chronic atrial fibrillation: stable. On metoprolol. Not on blood thinner o/a of history of GI bled. Not on anticoagulation since September 2017. 9.Depression: on remeron 10. DVT prophylaxis: SCDs Disposition: DC home today with cardiac rehab referral. Counseled extensively on adherent to her diuretics and also adhering to a low-salt diet. To follow-up with her telephone service adviser in 1 week and with PCP in 1 week. This note was generated with [employer] software. It may contain incorrect words, spelling, and punctuation that were not noted in checking the note before signing. Code Visit Inpatient E&M: 91947 Subs Hosp L3
--- NOTE | 2017-10-18 11:32 | PN_ITS ---
Patient Problems: Active and Suspected Problems (Last Reviewed 10/17/17 @ 01:46 by Campos Aquino DO) Type 2 diabetes mellitus (Acute) Subjective: Patient is an 82-year-old female past medical history of systolic and diastolic congestive heart failure, chronic atrial fibrillation, CAD status post CABG, diabetes mellitus, hypertension, depression, hyperlipidemia, CKD 3, pulmonary hypertension and chronic respiratory failure on home oxygen. She is admitted by the ED on 10/16/2017 with complaint of worsening shortness of breath and lower extremity edema. Chest x-ray on admission showed pulmonary edema. Respiratory rate was 30 and she was saturating at 85% on 2 L of oxygen which increased to 94 -95% on 5 L of oxygen. Troponin was 0.036 on admission and BNP was 724. She has been managed for acute CHF exacerbation. She has been actively diuresed with IV Lasix. She has remained stable. Seen and examined. She feels very well and has no complaints this morning. Oxygen level was 4 L and she felt very comfortable. She is usually on around 2 L at home. When oxygen level was 22 L, patient still very felt very comfortable. She denied any cough shortness of breath, any chest pain, any abdominal pain, any diarrhea vomiting. Review of systems otherwise negative, labs and vitals reviewed. Vitals/I&O's: Vital Signs Temp Pulse Resp BP Pulse Ox 97.9 F 67 20 H 155/66 H 95 10/18/17 10:02 10/18/17 10:59 10/18/17 10:02 10/18/17 10:02 10/18/17 11:09 Oxygen Flow Rate (L/min) [ 2 AMBULATION with Oxygen] Oxygen Flow Rate (L/min) [ 0 AMBULATING on Room Air] Oxygen Flow Rate (L/min) [At 0 REST on Room Air] Oxygen Flow Rate (L/min) 4 Oxygen Delivery Method Nasal Cannula Weight: 197 lb 1.492 oz Body Mass Index (BMI) 34.3 Intake and Output for Last 24 Hours 10/16/17 10/17/17 10/18/17 23:59 23:59 23:59 Intake Total 740 / 740 0 / 0 Output Total 2700 / 2700 450 / 450 Balance -1960 / -1960 -450 / -450 General: Alert, Oriented x3, Cooperative, No apparent distress HEENT: Atraumatic, PERRLA, EOMI, Normocephalic Oral: Moist Mucosa Neck: Supple, No JVD, Negative Carotid Bruits Lungs: - - Has very few crackles in mid and lower lung johnson bilaterally. Normal air movement bilaterally. Cardiovascular: Regular rate, Regular Rhythm, Normal S1, Normal S2, No murmurs Abdomen: Bowel Sounds Present, Soft, Non Tender, Non-Distended, No Hepato- splenomegaly Extremities: No clubbing, No cyanosis, No edema, Capillary Refill Less than 3 Seconds Skin: No rashes, No breakdown Musculoskeletal: No Tenderness to Palpation of Joints or Extremities Lymphatic: No Cervical, Supraclavicular, or Inguinal Adenopathy Neurological: Cranial nerves II-XII grossly intact Psych/Mental Status: Normal Affect, Appropriate, Alert and oriented to time, place, person, mood and affect Laboratory Results 10/17/17 11:26: POC Glucose 263 H 10/17/17 12:15: Specimen Type ART, Sample Site L Radial, pH 7.41, Bicarbonate Actual 32.8 H, POC Total CO2 34, Base Excess 8 H, O2 Saturation 96, ABG pCO2 51.6 H, ABG pO2 82, Skyler Test POS, O2 Delivery Device Nasal Can, Liter Flow 5.0 , Blood Gas Notified Whom ABHI STOVALL, Blood Gas Notified Time 1205 10/17/17 16:20: POC Glucose 243 H 10/17/17 21:59: POC Glucose 233 H 10/18/17 06:50: POC Glucose 183 H 10/18/17 08:00: WBC 8.7, RBC 3.68 L, Hgb 9.0 L, Hct 33.8 L, MCV 91.8, MCH 24.5 L , MCHC 26.6 L, RDW 18.4 H, RDW Differential 61.9 H, Plt Count 224, MPV 10.8, Immature Gran % (Auto) 0.100, Neut % (Auto) 80.1 H, Lymph % (Auto) 12.3 L, [place] % (Auto) 6.4, Eos % (Auto) 1.0, Baso % (Auto) 0.1, Absolute Neuts (auto) 7.0, Absolute Lymphs (auto) 1.07, Total Counted Not Reportable 10/18/17 08:00: Sodium 147 H, Potassium 4.3, Chloride 107, Carbon Dioxide 37.0 H , Anion Gap 3 L, BUN 24 H, Creatinine 1.21 H, Estim Creat Clear Calc 31.49, Est GFR (MDRD) Af Amer 55 L, Est GFR (MDRD) Non-Af 45 L, BUN/Creatinine Ratio 19.8, Glucose 182 H, Calcium 8.8 Current Medications Acetaminophen (Tylenol) 650 mg PO Q6H PRN PRN PRN Reason: Mild Pain (scale 0-3)/T>100.7 Atorvastatin Calcium (Lipitor) 40 mg PO QHS [facility] Last Admin: 10/17/17 22:02 Dose: 40 mg Calcium/Vitamin D (Os-West 500mg + D) 1 tablet PO BID [facility] Last Admin: 10/18/17 08:52 Dose: 1 tablet Furosemide (Lasix) 40 mg IV Q12 [facility] Last Admin: 10/18/17 08:51 Dose: 40 mg Hydralazine HCl (Apresoline) 50 mg PO 4X/DAY [facility] Last Admin: 10/18/17 08:50 Dose: 50 mg Insulin Glargine (Lantus (Bkc)) 30 units SC BID [facility] Last Admin: 10/18/17 08:51 Dose: 30 u Insulin Human Lispro (Humalog Kwikpen (Bkc)) 0 unit SC ACHS [facility] PRN Reason: Protocol Stop: 10/21/17 16:01 Last Admin: 10/18/17 08:50 Dose: 1 u Isosorbide Mononitrate (Imdur) 30 mg PO DAILY [facility] Last Admin: 10/18/17 08:50 Dose: 30 mg Magnesium Hydroxide (Milk Of Magnesia) 30 ml PO DAILY PRN PRN Reason: Constipation Metoprolol Tartrate (Lopressor (Beta Rah)) 12.5 mg PO BID [facility] Last Admin: 10/18/17 08:51 Dose: 12.5 mg Mirtazapine (Remeron) 15 mg PO QHS [facility] Last Admin: 10/17/17 22:04 Dose: 15 mg Multivitamins (Multivitamin) 1 tablet PO DAILY@0800 [facility] Last Admin: 10/18/17 08:50 Dose: 1 tablet Nystatin (Mycostatin Powder) 1 applic TOPICAL BID [facility] PRN Reason: Protocol Last Admin: 10/18/17 08:52 Dose: 1 applicatio Ondansetron HCl (Zofran) 4 mg IV Q8H PRN PRN PRN Reason: Nausea Pantoprazole Sodium (Protonix) 40 mg PO DAILY [facility] Last Admin: 10/18/17 08:52 Dose: 40 mg Sodium Chloride () 5 - 30 ml IV UD PRN PRN Reason: SALINE FLUSH Last Admin: 10/17/17 22:10 Dose: 10 ml Medical Necessity - Tobacco Use Smoking Status: Never smoker Tobacco Use: Non-smoker Assessment/Plan All Active Problems (Last Reviewed 10/17/17 @ 01:46 by Campos Aquino DO) Type 2 diabetes mellitus (Acute) Acute on chronic combined systolic and diastolic heart failure (Acute) Acute kidney injury superimposed on chronic kidney disease (Resolved) Acute respiratory failure with hypoxia (Resolved) COPD exacerbation (Resolved) Chest pain (Resolved) Fall (Resolved) Hyperkalemia (Resolved) 1. Acute CHF excerbation * Resolving. Was on 4 L of oxygen and breathing very well; during review oxygen level 10 down to 2 L and patient was still very comfortable. * In negative balance of 1.9 L over last 24 hours * patient ambulated on 2L of oxygen; saturation dropped to 88%, and increased to 91-92% whilst ambulating on 3L of oxygen * 2D echo(08/11/17): severe concentric LVH, with EF of 50% and mild systolic segmental dysfunction. Hypokinesia of the lateral apex, mid anteroseptal and apex. PA systolic pressure is 46mmHg. * also on hydralazine and Imdur as well as metoprolol. * restrict fluids to 1500mls daily * 2. Acute on chronic hypoxic respiratory failure due to CHF exacerbation * Resolving. Patient on 4 L of oxygen which was reduced to 2 L of oxygen and patient still saturated well. * Saturation on ambulation with oxygen * ABG done (10/17/17): pH of 7.41, wih * maintain on home oxygen, to increase to 3L as needed. * 3. MEtabolic alkalosis, due to contraction alkalosis * bicarb is 37; this is probably due to IV lasix administration * will monitor * 4. CAD s/p CABG: stable. On aspirin, statin, metoprolol. 5. CKD 3 * Cr is 1.21 today. Baseline ~ 1.4 * resolving * will monitor * 6. HTN: control has improved. On hydralazine, metoprolol. Not on LEANDER-I due to allergy. 7. DM2: on insulin lantus 30IU bid and ISS. Accuchecks ACHS. Will monitor 8. Chronic atrial fibrillation: stable. On metoprolol. Not on blood thinner o/a of history of GI bled. Not on anticoagulation since September 2017. 9.Depression: on remeron 10. DVT prophylaxis: SCDs Disposition: DC home today with cardiac rehab referral. Counseled extensively on adherent to her diuretics and also adhering to a low-salt diet. To follow- up with her agricultural education teacher in 1 week and with PCP in 1 week. This note was generated with [employer] dictation software. It may contain incorrect words, spelling, and punctuation that were not noted in checking the note before signing. Code Visit Inpatient E&M: 00313 Subs Hosp L3
--- NOTE | 2017-10-18 11:37 | PCM.DC ---
- Discharge Diagnoses Current Active Problems: Current Active and Chronic Problems (Last Reviewed 10/17/17 @ 01:46 by Campos Aquino DO) Anemia (Chronic) Chronic renal failure, stage 3 (moderate) (Chronic) Type 2 diabetes mellitus (Acute) Poor dental hygiene (Chronic) History of coronary artery bypass graft (Chronic) Chronic hypoxemic respiratory failure (Chronic) Reason(s) for Visit for Discharge Instructions: CHF exacerbation. Acute on chronic hypoxic respiratory failure You will use the following diet at home:: Other - 2gram low sodium diet Your food should be the consistency of: Regular Your liquids should be the consistency of: Regular/Thin Discharge Activity: Return to Normal Activity Weight Bearing Status: Weight bearing as tolerated Call your doctor if you observe: Shortness of breath, Swelling in the ankles, Increased palpitations (irregular heartbeat) Instructions: Heart Failure: Procedures That May Help, Heart Failure: Making Changes to Your Diet, Heart Failure: Medications to Help Your Heart, Discharge Instructions: Limiting Fluids, Discharge Instructions for Heart Failure Additional Instructions: Increase home oxygen to 3L as needed when short of breath Allergies/Adverse Reactions: Allergies LEANDER Inhibitors Allergy (Verified 10/16/17 22:39) Unknown Medications to take at Discharge Atorvastatin Calcium [Lipitor] 40 mg PO QHS 04/19/17 Calcium Carbonate/Vitamin D3 [Calcium 500-Vit D3 600 Tablet] 1 each PO BID 04/19/17 Insulin Detemir [Levemir] 30 unit SQ BID 04/19/17 Isosorbide Mononitrate [Imdur] 30 mg PO DAILY 04/19/17 Mirtazapine [Remeron] 15 mg PO QHS 04/19/17 Multivitamin [Daily Multiple Vitamin] 1 each PO DAILY 04/19/17 Omeprazole 40 mg PO DAILY 04/19/17 Acetaminophen [Tylenol Tablet] 650 mg PO Q6H PRN PRN tablet 08/13/17 Metoprolol Tartrate [Lopressor (beta joan)] 12.5 mg PO BID #60 tab 08/13/17 Hydralazine HCl 50 mg PO 4X/DAY #90 tab 09/27/17 Nystatin Powder [Mycostatin Powder] 1 applic TOPICAL BID bottle 09/27/17 Furosemide 40 mg PO BID #60 tab 10/18/17 The following prescriptions were given: Furosemide 40 mg PO BID #60 tab Primary Care Physician: Eliot Loja MD [Primary Care Provider] - Please follow up with your Primary Care Physician in: one week Test Results: Test results from this visit will be discussed in further detail at your follow-up appointment, if applicable. Please Follow Up With: Gavin Strong MD When: one week Proposed Discharge Date: 10/18/17 Cardiac Rehab Referral Please Follow Up with Cardiac Rehabilitation:: 2 Weeks Cardiac Rehabilitation was informed of this Referral:: Yes - Notifies Card Rehab
--- NOTE | 2017-10-18 11:41 | DS.PCM_ITS ---
Discharge Date and Diagnosis Date of Admission: 10/17/17 Date of Discharge: 10/18/17 - Primary Discharge Diagnosis Active and Suspected Problems (Last Reviewed 10/17/17 @ 01:46 by Campos Aquino DO) Type 2 diabetes mellitus (Acute) acute CHF exacerbation - Secondary Discharge Diagnosis Chronic Problems (Last Reviewed 10/17/17 @ 01:46 by Campos Aquino DO) Anemia (Chronic) Chronic renal failure, stage 3 (moderate) (Chronic) Poor dental hygiene (Chronic) History of coronary artery bypass graft (Chronic) Chronic hypoxemic respiratory failure (Chronic) Afib (Chronic) Gastric ulcer (Chronic) Colon polyps (Chronic) CAD (coronary artery disease) (Chronic) Hospital Course and Treatment Imaging Results: Diagnostic Data Chest X-Ray 10/16/17 23:20 IMPRESSION: There is moderate enlargement of the cardiac silhouette with mild edema and small bilateral pleural effusions. Bibasilar opacities can be seen with atelectasis or consolidations. Electronically Signed: Raya Celis MD at 0:03 EDT Tel Direct: [phone], Service support , Laboratory Tests 10/16/17 10/16/17 10/16/17 22:50 22:50 22:50 WBC 9.1 RBC 3.52 L Hgb 8.9 L Hct 32.9 L MCV 93.5 MCH 25.3 L MCHC 27.1 L RDW 18.5 H RDW Differential 60.5 H Plt Count 232 MPV 10.7 Immature Gran % (Auto) 0.200 Neut % (Auto) 79.0 H Lymph % (Auto) 12.8 L [place] % (Auto) 6.5 Eos % (Auto) 1.2 Baso % (Auto) 0.3 Absolute Neuts (auto) 7.2 Absolute Lymphs (auto) 1.16 Total Counted Not Reportable PT INR APTT Specimen Type Sample Site pH Bicarbonate Actual POC Total CO2 Base Excess O2 Saturation ABG pCO2 ABG pO2 Skyler Test O2 Delivery Device Liter Flow Blood Gas Notified Whom Blood Gas Notified Time Sodium Potassium Chloride Carbon Dioxide Anion Gap BUN Creatinine Estim Creat Clear Calc Est GFR (MDRD) Af Amer Est GFR (MDRD) Non-Af BUN/Creatinine Ratio Glucose Calcium Magnesium Troponin I 0.036 B-Natriuretic Peptide 723.9 H POC Glucose 10/16/17 10/16/17 10/16/17 22:50 22:50 22:50 WBC RBC Hgb Hct MCV MCH MCHC RDW RDW Differential Plt Count MPV Immature Gran % (Auto) Neut % (Auto) Lymph % (Auto) [place] % (Auto) Eos % (Auto) Baso % (Auto) Absolute Neuts (auto) Absolute Lymphs (auto) Total Counted PT 14.8 INR 1.2 APTT 30.3 Specimen Type Sample Site pH Bicarbonate Actual POC Total CO2 Base Excess O2 Saturation ABG pCO2 ABG pO2 Skyler Test O2 Delivery Device Liter Flow Blood Gas Notified Whom Blood Gas Notified Time Sodium 147 H Potassium 4.2 Chloride 109 H Carbon Dioxide 32.0 Anion Gap 6 BUN 23 H Creatinine 1.44 H Estim Creat Clear Calc 24.23 Est GFR (MDRD) Af Amer 45 L Est GFR (MDRD) Non-Af 37 L BUN/Creatinine Ratio 16.0 Glucose 256 H Calcium 8.4 L Magnesium 1.8 Troponin I B-Natriuretic Peptide POC Glucose 10/17/17 10/17/17 10/17/17 06:42 07:45 07:45 WBC 9.0 RBC 3.45 L Hgb 8.7 L Hct 32.4 L MCV 93.9 MCH 25.2 L MCHC 26.9 L RDW 18.5 H RDW Differential 59.9 H Plt Count 230 MPV 10.9 Immature Gran % (Auto) 0.300 Neut % (Auto) 78.5 H Lymph % (Auto) 12.5 L [place] % (Auto) 7.0 Eos % (Auto) 1.4 Baso % (Auto) 0.3 Absolute Neuts (auto) 7.0 Absolute Lymphs (auto) 1.12 Total Counted Not Reportable PT INR APTT Specimen Type Sample Site pH Bicarbonate Actual POC Total CO2 Base Excess O2 Saturation ABG pCO2 ABG pO2 Skyler Test O2 Delivery Device Liter Flow Blood Gas Notified Whom Blood Gas Notified Time Sodium 151 H Potassium 4.8 Chloride 111 H Carbon Dioxide 35.0 H Anion Gap 5 BUN 24 H Creatinine 1.38 H Estim Creat Clear Calc 27.61 Est GFR (MDRD) Af Amer 47 L Est GFR (MDRD) Non-Af 39 L BUN/Creatinine Ratio 17.4 Glucose 170 H Calcium 8.6 Magnesium Troponin I B-Natriuretic Peptide POC Glucose 177 H 10/17/17 10/17/17 10/17/17 11:26 12:15 16:20 WBC RBC Hgb Hct MCV MCH MCHC RDW RDW Differential Plt Count MPV Immature Gran % (Auto) Neut % (Auto) Lymph % (Auto) [place] % (Auto) Eos % (Auto) Baso % (Auto) Absolute Neuts (auto) Absolute Lymphs (auto) Total Counted PT INR APTT Specimen Type ART Sample Site L Radial pH 7.41 Bicarbonate Actual 32.8 H POC Total CO2 34 Base Excess 8 H O2 Saturation 96 ABG pCO2 51.6 H ABG pO2 82 Skyler Test POS O2 Delivery Device Nasal Can Liter Flow 5.0 Blood Gas Notified Whom [facility] Blood Gas Notified Time 1205 Sodium Potassium Chloride Carbon Dioxide Anion Gap BUN Creatinine Estim Creat Clear Calc Est GFR (MDRD) Af Amer Est GFR (MDRD) Non-Af BUN/Creatinine Ratio Glucose Calcium Magnesium Troponin I B-Natriuretic Peptide POC Glucose 263 H 243 H 10/17/17 10/18/17 10/18/17 21:59 06:50 08:00 WBC 8.7 RBC 3.68 L Hgb 9.0 L Hct 33.8 L MCV 91.8 MCH 24.5 L MCHC 26.6 L RDW 18.4 H RDW Differential 61.9 H Plt Count 224 MPV 10.8 Immature Gran % (Auto) 0.100 Neut % (Auto) 80.1 H Lymph % (Auto) 12.3 L [place] % (Auto) 6.4 Eos % (Auto) 1.0 Baso % (Auto) 0.1 Absolute Neuts (auto) 7.0 Absolute Lymphs (auto) 1.07 Total Counted Not Reportable PT INR APTT Specimen Type Sample Site pH Bicarbonate Actual POC Total CO2 Base Excess O2 Saturation ABG pCO2 ABG pO2 Skyler Test O2 Delivery Device Liter Flow Blood Gas Notified Whom Blood Gas Notified Time Sodium Potassium Chloride Carbon Dioxide Anion Gap BUN Creatinine Estim Creat Clear Calc Est GFR (MDRD) Af Amer Est GFR (MDRD) Non-Af BUN/Creatinine Ratio Glucose Calcium Magnesium Troponin I B-Natriuretic Peptide POC Glucose 233 H 183 H 10/18/17 10/18/17 08:00 11:42 WBC RBC Hgb Hct MCV MCH MCHC RDW RDW Differential Plt Count MPV Immature Gran % (Auto) Neut % (Auto) Lymph % (Auto) [place] % (Auto) Eos % (Auto) Baso % (Auto) Absolute Neuts (auto) Absolute Lymphs (auto) Total Counted PT INR APTT Specimen Type Sample Site pH Bicarbonate Actual POC Total CO2 Base Excess O2 Saturation ABG pCO2 ABG pO2 Skyler Test O2 Delivery Device Liter Flow Blood Gas Notified Whom Blood Gas Notified Time Sodium 147 H Potassium 4.3 Chloride 107 Carbon Dioxide 37.0 H Anion Gap 3 L BUN 24 H Creatinine 1.21 H Estim Creat Clear Calc 31.49 Est GFR (MDRD) Af Amer 55 L Est GFR (MDRD) Non-Af 45 L BUN/Creatinine Ratio 19.8 Glucose 182 H Calcium 8.8 Magnesium Troponin I B-Natriuretic Peptide POC Glucose 206 H Operations: None Procedures: None Summary of Care Provided: Patient is an 82-year-old female with a past medical history of systolic and diastolic congestive heart failure, chronic atrial fibrillation, CAD status post CABG, diabetes mellitus, hypertension, depression, hyperlipidemia, CKD 3, pulmonary hypertension and chronic respiratory failure on home oxygen. She is admitted via the ED on 10/16/2017 with complaint of worsening shortness of breath and lower extremity edema. Chest x-ray on admission showed pulmonary edema. Respiratory rate was 30 and she was saturating at 85% on 2 L of oxygen which increased to 94-95% on 5 L of oxygen. Troponin was 0.036 on admission and BNP was 724. Is managed for acute CHF exacerbation and [id number] hypoxic respiratory failure due to CHF.. She was actively diuresed with Lasix and subsequently felt much better. On discharge, her Lasix dose was increased from 40 mg daily to 40 mg twice daily to help with diuresis. Patient with ambulation maintain saturation at 88% on 2 L of oxygen which went up to 92% when oxygen was increased to 3. Patient was counseled to increase oxygen at home to 3 L with ambulation to help with saturation. She was also referred to cardiac rehab on discharge. She is follow-up with her primary education professor in 1 week and a primary care doctor in 1 week. Discharge Diet: 2000 mg Sodium Diet Discharge Activity: Return to Normal Activity Weight Bearing Status: Weight bearing as tolerated Call your doctor if you observe: Shortness of breath, Swelling in the ankles, Increased palpitations (irregular heartbeat) Home Medications: Medications to take at Discharge Atorvastatin Calcium [Lipitor] 40 mg PO QHS 04/19/17 Calcium Carbonate/Vitamin D3 [Calcium 500-Vit D3 600 Tablet] 1 each PO BID 04/19 Insulin Detemir [Levemir] 30 unit SQ BID 04/19/17 Isosorbide Mononitrate [Imdur] 30 mg PO DAILY 04/19/17 Mirtazapine [Remeron] 15 mg PO QHS 04/19/17 Multivitamin [Daily Multiple Vitamin] 1 each PO DAILY 04/19/17 Omeprazole 40 mg PO DAILY 04/19/17 Acetaminophen [Tylenol Tablet] 650 mg PO Q6H PRN PRN tablet 08/13/17 Metoprolol Tartrate [Lopressor (beta joan)] 12.5 mg PO BID #60 tab 08/13/17 Hydralazine HCl 50 mg PO 4X/DAY #90 tab 09/27/17 Nystatin Powder [Mycostatin Powder] 1 applic TOPICAL BID bottle 09/27/17 Furosemide 40 mg PO BID #60 tab 10/18/17 Following Prescrptions Were Given to Patient: Furosemide 40 mg PO BID #60 tab Primary Care Physician: Eliot Loja MD [Primary Care Provider] - Please follow up with your Primary Care Physician in: one week Please Follow Up With: Gavin Strong MD When: one week Patient Instructions: Heart Failure: Procedures That May Help, Heart Failure: Making Changes to Your Diet, Heart Failure: Medications to Help Your Heart, Discharge Instructions for Heart Failure, Discharge Instructions: Limiting Fluids Disposition: Home with Home Health Minutes spent on discharge:: 40 Patient Condition:: Good Medical Necessity - Tobacco Use Smoking Status: Never smoker Tobacco Use: Non-smoker Meaningful Use Info Meaningful Use Diagnoses (Choose all that apply): CHF - CHF LEANDER/ARB ordered at discharge?: No Reason LEANDER/ARB not ordered?: Allergy Documented LVEF (%): 50 Code Visit Inpatient E&M: 72485 Disch Hosp
--- NOTE | 2017-10-18 11:41 | DCINST_ITS ---
- Discharge Diagnoses Current Active Problems: Current Active and Chronic Problems (Last Reviewed 10/17/17 @ 01:46 by Campos Aquino DO) Anemia (Chronic) Chronic renal failure, stage 3 (moderate) (Chronic) Type 2 diabetes mellitus (Acute) Poor dental hygiene (Chronic) History of coronary artery bypass graft (Chronic) Chronic hypoxemic respiratory failure (Chronic) Reason(s) for Visit for Discharge Instructions: CHF exacerbation. Acute on chronic hypoxic respiratory failure You will use the following diet at home:: Other - 2gram low sodium diet Your food should be the consistency of: Regular Your liquids should be the consistency of: Regular/Thin Discharge Activity: Return to Normal Activity Weight Bearing Status: Weight bearing as tolerated Call your doctor if you observe: Shortness of breath, Swelling in the ankles, Increased palpitations (irregular heartbeat) Instructions: Heart Failure: Procedures That May Help, Heart Failure: Making Changes to Your Diet, Heart Failure: Medications to Help Your Heart, Discharge Instructions: Limiting Fluids, Discharge Instructions for Heart Failure Additional Instructions: Increase home oxygen to 3L as needed when short of breath Allergies/Adverse Reactions: Allergies LEANDER Inhibitors Allergy (Verified 10/16/17 22:39) Unknown Medications to take at Discharge Atorvastatin Calcium [Lipitor] 40 mg PO QHS 04/19/17 Calcium Carbonate/Vitamin D3 [Calcium 500-Vit D3 600 Tablet] 1 each PO BID 04/19 Insulin Detemir [Levemir] 30 unit SQ BID 04/19/17 Isosorbide Mononitrate [Imdur] 30 mg PO DAILY 04/19/17 Mirtazapine [Remeron] 15 mg PO QHS 04/19/17 Multivitamin [Daily Multiple Vitamin] 1 each PO DAILY 04/19/17 Omeprazole 40 mg PO DAILY 04/19/17 Acetaminophen [Tylenol Tablet] 650 mg PO Q6H PRN PRN tablet 08/13/17 Metoprolol Tartrate [Lopressor (beta joan)] 12.5 mg PO BID #60 tab 08/13/17 Hydralazine HCl 50 mg PO 4X/DAY #90 tab 09/27/17 Nystatin Powder [Mycostatin Powder] 1 applic TOPICAL BID bottle 09/27/17 Furosemide 40 mg PO BID #60 tab 10/18/17 The following prescriptions were given: Furosemide 40 mg PO BID #60 tab Primary Care Physician: Elito Loja MD [Primary Care Provider] - Please follow up with your Primary Care Physician in: one week Test Results: Test results from this visit will be discussed in further detail at your follow- up appointment, if applicable. Please Follow Up With: Gavin Strong MD When: one week Proposed Discharge Date: 10/18/17 Cardiac Rehab Referral Please Follow Up with Cardiac Rehabilitation:: 2 Weeks Cardiac Rehabilitation was informed of this Referral:: Yes - Notifies Card Rehab
[2017-10-18 11:45] LABS: Bedside Glucose 206 mg/dL (70-110)
== END 2017-10-18 14:08 | disposition home or self-care (01) | DRG 291 ==
LOC: ED 23:05 → PCU 10-17 01:34
PROVIDERS: Admitting Provider Internal Medicine; Emergency Provider Emergency Medicine; Family Provider Internal Medicine; PCP Internal Medicine; Visit Provider Student in an Organized Health Care Education/Training Program
DX: I13.0 Hypertensive heart and chronic kidney disease with heart failure and stage 1 through stage 4 chronic kidney disease, or unspecified chronic kidney disease (principal); I50.43 Acute on chronic combined systolic (congestive) and diastolic (congestive) heart failure; J96.21 Acute and chronic respiratory failure with hypoxia; N18.3 Chronic kidney disease, stage 3 (moderate); I27.20 Pulmonary hypertension, unspecified; E11.22 Type 2 diabetes mellitus with diabetic chronic kidney disease; Z95.1 Presence of aortocoronary bypass graft; I48.2 Chronic atrial fibrillation; I25.10 Atherosclerotic heart disease of native coronary artery without angina pectoris; E78.5 Hyperlipidemia, unspecified; Z79.4 Long term (current) use of insulin; Z99.81 Dependence on supplemental oxygen; F32.9 Major depressive disorder, single episode, unspecified; Z79.899 Other long term (current) drug therapy
CPT/HCPCS: 36415; 36600; 71045; 80048; 82803; 82962; 83735; 83880; 84484; 85025; 85610; 85730; 93005; 97110; 97162; 97166; 97802; 99285; A4216; J1940

== ENCOUNTER 2017-10-19 18:25 | Inpatient (IN) | payer MEDICARE, SELFPAY ==
[2017-10-19] VITALS (15 sets, daily range): BP systolic 117–136; BP diastolic 53–73; PULSE 76–106; RESP 15–98; TEMP 36.7–37.8; O2SAT 90–100; BMI 33.9
--- NOTE | 2017-10-19 18:40 | EKG12_ITS ---
Test Reason : SOB Blood Pressure : / mmHG Vent. Rate : 085 BPM Atrial Rate : 050 BPM P-R Int : 000 ms QRS Dur : 116 ms QT Int : 406 ms P-R-T Axes : 000 000 052 degrees QTc Int : 483 ms Atrial fibrillation with premature ventricular or aberrantly conducted complexes Anterior infarct , age undetermined Abnormal ECG Confirmed by YIMI STOVALL, NICOLE ([id number]), communications editor STEFANIA WILDER ([id number]) on 10/23/2017 1:06:02 PM Referred By: CHAD Confirmed By:NICOLE GELLER MD
--- NOTE | 2017-10-19 18:45 | RAD_ITS ---
STUDY: X-RAY CHEST REASON FOR EXAM: Female, 82 years old. Shortness of breath TECHNIQUE: Frontal view of the chest COMPARISON: 10/16/2017 FINDINGS: There are stable patchy opacities in both lungs which may be due to edema or infection. There are stable small bilateral pleural effusions. The heart is enlarged, but stable The patient is status post sternotomy. RAD/Chest 1 View (Portable) IMPRESSION: Stable exam. Electronically Signed: Guanako Beltran, at 19:09 EDT Tel , Service support ,
[2017-10-19] MEDS: Albuterol 2.5 MG/3 ML VIAL.NEB. INHALATION (18:56)
[2017-10-19 19:36] LABS: Absolute Lymphocyte Count 0.79 X10^3/ul (0.83-4.51); Absolute Neutrophil Count 7.6 X10^3/uL (2.0-7.7); Basophil# 0.02 X10^3/uL; Basophil% 0.2 % (0-1); Hematocrit 32.8 % (37-47); Hemoglobin 8.8 g/dl (12.0-15.0); Lymphocyte # 0.79 X10^3/ul (4.0); Lymphocyte % 8.9 % (19-41); Mean Corp Hgb Conc 26.8 g/gl (32-36); Mean Corpuscular Hgb 24.4 pg (27.0-32.0); Mean Corpuscular Volume 90.9 fL (81-99); Mean Platelet Vol. 10.5 fl (6.2-12.0); Monocyte# 0.46 X10^3/uL; Monocyte% 5.2 % (0-10); Neutrophil # 7.55 X10^3/uL (2.7-7.7); Neutrophil % 85.6 % (47-70); Platelet Count 279 K/mm3 (150-450); RBC Distribution Width CV 18.6 % (11.6-14.6); Red Blood Count 3.61 M/mm3 (4.2-5.4); White Blood Count 8.8 K/mm3 (4.4-11.0)
[2017-10-19 19:38] LABS: POSITIVE COUNT NO; POSITIVE DIFFERENTIAL NO; POSITIVE MORPHOLOGY NO
[2017-10-19 19:45] LABS: Red Blood Cells-Urine 0 SEEN /hpf (0-5)
[2017-10-19 19:46] LABS: International Normalized Ratio 1.3; Prothrombin Time (Protime)PT. 16.3 SECONDS (11.7-14.9)
[2017-10-19 19:47] LABS: Partial Thromboplast Time 28.9 Seconds (24.1-36.2)
[2017-10-19 19:48] LABS: ALB/GLOB Ratio 0.5 RATIO (0.9-2.4); AST(SGOT) 52 U/L (15-37); Alanine Aminotransfer ALT/SGPT 21 U/L (13-56); Albumin, Serum 2.6 g/dL (3.2-5.0); Alkaline Phosphatase 85 U/L (45-117); Anion Gap 6 (5-15); BUN 32 mg/dL (7-18); BUN/Creat Ratio 21.3 RATIO (10-20); Calcium,Total 8.7 mg/dL (8.5-10.1); Chloride 108 mmol/L (98-107); EST Glomerular Filtration Rate 35 mL/min (>60); Est Glom Filt Rate - Afr Amer 43 mL/min (>60); Globulin 4.9 g/dL (2.2-4.2); Glucose 92 mg/dL (74-106); Potassium 4.5 mmol/L (3.5-5.1); Protein, Total 7.5 g/dL (6.4-8.2); Sodium Level 149 mmol/L (136-145)
[2017-10-19 19:55] LABS: Color, Urine Yellow (Yellow); Glucose, Dipstick Normal (Normal); Ketone-Dipstick Negative (Negative); Leukocyte Esterase-Dipstick 25 /ul (Negative); Nitrite-Dipstick Negative (Negative); Occult Blood-Urine Negative /ul (Negative); Protein-Dipstick 30 mg/dl (Negative); Urine Bilirubin Dipstick Negative (Negative); Urine Clarity Clear (Clear); Urine Urobilinogen 4 mg/dl (Normal)
[2017-10-19 20:05] LABS: Amorphous Sediment 1+; Bacteria 1+ /hpf (None Seen); Hyaline Cast 0-5 SEEN /lpf (0-5); Mucous, Urine 2+ /hpf (<or=2+); Squamous Epithelial Cells - UA 5-10 SEEN /hpf (5-10); White Blood Cells 0-5 SEEN /hpf (0-5)
[2017-10-19 20:15] LABS: Lactic Acid 1.5 mmol/L (0.4-2.0)
--- NOTE | 2017-10-19 21:36 | NURSING ---
Test walk done while patient was on 3 liters O2 and the use of a non wheeled walker. Patient was a little unsteady, and tachypnea was noted. Her o2 sat dropped to 89, but would go up to 91-92% at times. Once she was back in bed she was really sob, and resps were in the 30's. and I bumped O2 up to 3 liters and she is sating 93%.
--- NOTE | 2017-10-19 21:58 | ED.VISSUMM ---
- ER Visit Summary Date of Service: 10/19/17 Chief Complaint: Shortness of breath and confusion History of Present Illness: The patient is a 82 F presenting secondary to shortness of breath confusion. Patient has a underlying history of coronary artery disease CHF diabetes chronic kidney disease and acute on chronic respiratory failure. She was just recently admitted to the hospital, and was discharged yesterday. Daughter apparently stated that the patient was increasingly confused today and was having increasing oxygen requirements. Patient is typically on 2 L l at home, but had to be increased to 3 L on discharge, and actually upon arrival to the emergency department was requiring nonrebreather. Patient denies any chest pain. She has a low-grade fever. Physical Examination: Ill-appearing elderly female. Vital signs notable for a pulse ox in the low 90s on 6 L. Dry mucous membranes, neck was supple, heart was irregular with a regular rate. Lung sounds are very diminished and somewhat tight throughout the lung johnson. Abdomen soft nontender. Bilateral +1 lower extremity edema. Skin was normal color with no rash. Patient was alert and oriented on my exam to person place and time Test Results: Chest x-ray shows stable markings. EKG shows ventricular rate of [address] segments normal T waves occasional PVCs and atrial fibrillation. CBC shows chronic anemia of 8 with a neutrophilic predominance, chemistry shows mild increased creatinine 1.5, INR 1.3, urinalysis negative Emergency Department Course and Treatment: Patient presented secondary to increased oxygen requirement. Her evaluation as noted above did not show significant evidence of infectious etiology or CHF, but the patient does have a low-grade fever. She was able to be weaned down to nasal cannula but only 6 L and no lower. On ambulation she has a extremely increased respiratory rate as well as heart rate and desaturation in the 80s. I believe she still requires admission. Patient will be treated with antibiotics as she did have a fever, she may require custodial placement as this is her second admission. Disposition: Admission Impression: 1. Hypoxic respiratory failure 2. Possible pneumonia This note was generated with [employer] dictation software. It may contain incorrect words, spelling, and punctuation that were not noted in review of the chart prior to signing ED Disposition - Plan for ED Patient: Chief Complaint: Shortness of Breath Referrals: Eliot Loja MD [Primary Care Provider] -
--- NOTE | 2017-10-19 22:01 | ED.DCSUM_ITS ---
- ER Visit Summary Date of Service: 10/19/17 Chief Complaint: Shortness of breath and confusion History of Present Illness: The patient is a 82 F presenting secondary to shortness of breath confusion. Patient has a underlying history of coronary artery disease CHF diabetes chronic kidney disease and acute on chronic respiratory failure. She was just recently admitted to the hospital, and was discharged yesterday. Daughter apparently stated that the patient was increasingly confused today and was having increasing oxygen requirements. Patient is typically on 2 L l at home, but had to be increased to 3 L on discharge, and actually upon arrival to the emergency department was requiring nonrebreather. Patient denies any chest pain. She has a low-grade fever. Physical Examination: Ill-appearing elderly female. Vital signs notable for a pulse ox in the low 90s on 6 L. Dry mucous membranes, neck was supple, heart was irregular with a regular rate. Lung sounds are very diminished and somewhat tight throughout the lung johnson. Abdomen soft nontender. Bilateral + 1 lower extremity edema. Skin was normal color with no rash. Patient was alert and oriented on my exam to person place and time Test Results: Chest x-ray shows stable markings. EKG shows ventricular rate of [address] segments normal T waves occasional PVCs and atrial fibrillation. CBC shows chronic anemia of 8 with a neutrophilic predominance, chemistry shows mild increased creatinine 1.5, INR 1.3, urinalysis negative Emergency Department Course and Treatment: Patient presented secondary to increased oxygen requirement. Her evaluation as noted above did not show significant evidence of infectious etiology or CHF, but the patient does have a low-grade fever. She was able to be weaned down to nasal cannula but only 6 L and no lower. On ambulation she has a extremely increased respiratory rate as well as heart rate and desaturation in the 80s. I believe she still requires admission. Patient will be treated with antibiotics as she did have a fever, she may require correction placement as this is her second admission. Disposition: Admission Impression: 1. Hypoxic respiratory failure 2. Possible pneumonia This note was generated with [employer] dictation software. It may contain incorrect words, spelling, and punctuation that were not noted in review of the chart prior to signing ED Disposition - Plan for ED Patient: Chief Complaint: Shortness of Breath Referrals: Eliot Loja MD [Primary Care Provider] -
[2017-10-19] MEDS: Piperacil/Tazobactam 3.375 GM/50 ML ML IV (22:17)
--- NOTE | 2017-10-19 22:26 | ED.RN ---
CHANA BOO [facility] WAS NOTIFIED OF PATIENT'S ADMISSION. SHE IS PLANNING ON COMING IN IN THE AM. 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
--- NOTE | 2017-10-19 23:46 | PCM.HP.STD ---
Problem List (1) CAP (community acquired pneumonia) Status: Acute (2) NSTEMI (non-ST elevated myocardial infarction) Status: Acute (3) Chronic renal failure, stage 3 (moderate) Status: Chronic (4) Type 2 diabetes mellitus Status: Acute (5) Poor dental hygiene Status: Chronic (6) History of coronary artery bypass graft Status: Chronic (7) Chronic hypoxemic respiratory failure Status: Chronic History of Present Illness Date of Admission: 10/19/17 Chief Complaint: Hypoxic respiratory failure The patient is a 82 year old female w/ h/o coronary artery disease, CHF, diabetes, chronic kidney disease, and HTN admitted for acute on chronic respiratory failure. She was recently discharged from the hospital but was brought back secondary to worsening SOB. She is a poor historian. History is taken from staff. She has no chest pain. She has a mild cough. She has no other complaint. Past Medical History Past Medical History (Chronic Problems): Chronic Problems (Last Reviewed 10/17/17 @ 01:46 by Campos Aquino DO) Anemia (Chronic) Chronic renal failure, stage 3 (moderate) (Chronic) Poor dental hygiene (Chronic) History of coronary artery bypass graft (Chronic) Chronic hypoxemic respiratory failure (Chronic) Afib (Chronic) Gastric ulcer (Chronic) Colon polyps (Chronic) CAD (coronary artery disease) (Chronic) Medical History: Medical History (Last Reviewed 10/17/17 @ 01:46 by Campos Aquino DO) Colon polyps (Chronic) CAD (coronary artery disease) (Chronic) I25.10 Allergies LEANDER Inhibitors Allergy (Verified 10/16/17 22:39) Unknown Home Medications: Ambulatory Orders Medication Instructions Recorded Atorvastatin Calcium [Lipitor] 40 mg PO QHS 04/19/17 Calcium Carbonate/Vitamin D3 1 each PO BID 04/19/17 [Calcium 500-Vit D3 600 Tablet] Insulin Detemir [Levemir] 30 unit SQ BID 04/19/17 Isosorbide Mononitrate [Imdur] 30 mg PO DAILY 04/19/17 Mirtazapine [Remeron] 15 mg PO QHS 04/19/17 Multivitamin [Daily Multiple 1 each PO DAILY 04/19/17 Vitamin] Omeprazole 40 mg PO DAILY 04/19/17 Acetaminophen [Tylenol Tablet] 650 mg PO Q6H PRN PRN tablet 08/13/17 Metoprolol Tartrate [Lopressor 12.5 mg PO BID #60 tab 08/13/17 (beta joan)] Hydralazine HCl 50 mg PO 4X/DAY #90 tab 09/27/17 Nystatin Powder [Mycostatin Powder] 1 applic TOPICAL BID bottle 09/27/17 Furosemide 40 mg PO BID #60 tab 10/18/17 Surgical History: coronary bypass surgery, - - appendectemy, cholecystectemy, tonsil and adenoids, cabg - she cannot having any stents Psychiatric History: Depression 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: No pertinent 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 history Smoking Status: Never smoker - *Family History Maternal History Items: No pertinent history VTE Information - Inpt Only VTE Present on Admission: No VTE Mechan Device Prophylaxis: SCD's VTE Pharm Prophylaxis ordered?: Yes Patient Problems: Active and Suspected Problems (Last Reviewed 10/17/17 @ 01:46 by Campos Aquino DO) CAP (community acquired pneumonia) (Acute) NSTEMI (non-ST elevated myocardial infarction) (Acute) - Physical Exam General: Confused, Disoriented, Lethargic HEENT: Atraumatic, PERRLA, EOMI, Normocephalic Neck: Supple, No JVD, Negative Carotid Bruits Lungs: Clear to auscultation, Normal air movement Cardiovascular: Regular rate, No murmurs Abdomen: Bowel Sounds Present, Soft, Non Tender Extremities: No edema, Capillary Refill Less than 3 Seconds Skin: No rashes, No breakdown Musculoskeletal: No Tenderness to Palpation of Joints or Extremities Neurological: Cranial nerves II-XII grossly intact Psych/Mental Status: Normal Affect, Appropriate Vital Signs Temp Pulse Resp BP Pulse Ox 98.4 F 76 32 H 131/59 H 94 10/19/17 23:04 10/19/17 23:03 10/19/17 23:03 10/19/17 23:03 10/19/17 23:03 Oxygen Flow Rate (L/min) 5 Oxygen Delivery Method Nasal Cannula Weight: 89.584 kg Body Mass Index (BMI) 33.9 Finger Stick Blood Glucose 65 Laboratory Tests Past 24 Hrs 10/19/17 10/19/17 10/19/17 18:30 19:20 19:20 WBC 8.8 RBC 3.61 L Hgb 8.8 L Hct 32.8 L MCV 90.9 MCH 24.4 L MCHC 26.8 L RDW 18.6 H RDW Differential 61.0 H Plt Count 279 MPV 10.5 Immature Gran % (Auto) 0.100 Neut % (Auto) 85.6 H Lymph % (Auto) 8.9 L [place] % (Auto) 5.2 Eos % (Auto) 0.0 Baso % (Auto) 0.2 Absolute Neuts (auto) 7.6 Absolute Lymphs (auto) 0.79 L Total Counted Not Reportable PT 16.3 H INR 1.3 APTT 28.9 Sodium Potassium Chloride Carbon Dioxide Anion Gap BUN Creatinine Estim Creat Clear Calc Est GFR (MDRD) Af Amer Est GFR (MDRD) Non-Af BUN/Creatinine Ratio Glucose Lactic Acid Calcium Total Bilirubin AST ALT Alkaline Phosphatase Total Protein Albumin Globulin Albumin/Globulin Ratio Urine Color Yellow Urine Clarity Clear Urine pH 5.0 Ur Specific Campbell 1.010 Urine Protein 30 H Urine Glucose (UA) Normal Urine Ketones Negative Urine Occult Blood Negative Urine Nitrite Negative Urine Bilirubin Negative Urine Urobilinogen 4 H Ur Leukocyte Esterase 25 H Urine RBC 0 SEEN Urine WBC 0-5 SEEN Ur Squamous Epith Cells 5-10 SEEN Amorphous Sediment 1+ Urine Bacteria 1+ Hyaline Casts 0-5 SEEN Urine Mucus 2+ 10/19/17 10/19/17 19:20 19:20 WBC RBC Hgb Hct MCV MCH MCHC RDW RDW Differential Plt Count MPV Immature Gran % (Auto) Neut % (Auto) Lymph % (Auto) [place] % (Auto) Eos % (Auto) Baso % (Auto) Absolute Neuts (auto) Absolute Lymphs (auto) Total Counted PT INR APTT Sodium 149 H Potassium 4.5 Chloride 108 H Carbon Dioxide 35.0 H Anion Gap 6 BUN 32 H Creatinine 1.50 H Estim Creat Clear Calc 25.40 Est GFR (MDRD) Af Amer 43 L Est GFR (MDRD) Non-Af 35 L BUN/Creatinine Ratio 21.3 H Glucose 92 Lactic Acid 1.5 Calcium 8.7 Total Bilirubin 0.70 AST 52 H ALT 21 Alkaline Phosphatase 85 Total Protein 7.5 Albumin 2.6 L Globulin 4.9 H Albumin/Globulin Ratio 0.5 L Urine Color Urine Clarity Urine pH Ur Specific Campbell Urine Protein Urine Glucose (UA) Urine Ketones Urine Occult Blood Urine Nitrite Urine Bilirubin Urine Urobilinogen Ur Leukocyte Esterase Urine RBC Urine WBC Ur Squamous Epith Cells Amorphous Sediment Urine Bacteria Hyaline Casts Urine Mucus Assessment/Plan All Active Problems (Last Reviewed 10/17/17 @ 01:46 by Campos Aquino DO) Type 2 diabetes mellitus (Acute) CAP (community acquired pneumonia) (Acute) NSTEMI (non-ST elevated myocardial infarction) (Acute) Acute on chronic combined systolic and diastolic heart failure (Acute) Acute kidney injury superimposed on chronic kidney disease (Resolved) Acute respiratory failure with hypoxia (Resolved) COPD exacerbation (Resolved) Chest pain (Resolved) Fall (Resolved) Hyperkalemia (Resolved) 82 year old female w/ h/o coronary artery disease, CHF, diabetes, chronic kidney disease, and HTN admitted for acute on chronic respiratory failure. 1) NSTEMI: Trop 4.79 EKG disclosed afib. Will start heparin gtt. C/w ASA and statin. Consulted for cards. Discussed with cards. 2) Acute hypoxic respiratory failure probably secondary to NSTEMI. Possible HCAP. No clear e/o infection. Chest xray disclosed no infiltrate. No leukocytosis. No fever. C/w empiric antibiotic treatment, ie ceftriaxone and azithromycin. Cultures pending. 3) HTN: REsume home meds. Monitor. 4) Prophylaxis: SCD / heparin.
[2017-10-20] VITALS (20 sets, daily range): BP systolic 93–136; BP diastolic 46–66; PULSE 56–92; RESP 12–28; TEMP 36.6–37.4; O2SAT 91–99; BMI 32.9
[2017-10-20 01:01] LABS: Bedside Glucose 103 mg/dL (70-110)
--- NOTE | 2017-10-20 03:10 | NURSING ---
Dr. Wells notified of elevated troponin. Vitals stable and pt denies chest pain. Will transfer pt to PCU 108.
[2017-10-20] MEDS: Aspirin 81 MG TAB.CHEW 324 MG PO (03:36)
[2017-10-20] MEDS: HEPARIN/D5w 25,000 UNITS 25,000 UNITS/250 ML IV.SOLN. 12 UNITS IV (03:40)
--- NOTE | 2017-10-20 03:43 | NURSING ---
Razia, pt's POA called about transfer and elevated Troponin's. No answer, left message.
[2017-10-20] MEDS: Heparin Injection (Vial) 5,000 UNIT/ML VIAL 6000 UNIT IV (03:45)
--- NOTE | 2017-10-20 05:55 | RAD_ITS ---
STUDY: X-RAY CHEST REASON FOR EXAM: Female, 82 years old. Dyspnea. TECHNIQUE: AP and lateral views of the chest. COMPARISON: Comparison is made with prior study dated October 19, 2017. FINDINGS: EKG electrodes are seen. Since prior study, the CHF has progressed. Blunting of both costophrenic angles. Sternal cerclage wires and vascular clips are present from a prior sternotomy and coronary artery bypass graft procedure (CABG). Cardiomegaly. Normal mediastinum and damian. Normal visualized pulmonary arteries. Normal visualized aortic arch and descending thoracic aorta. Normal visualized thoracic spine. Normal visualized ribs, clavicles, and shoulders. There is no demonstrated abnormality of the visualized soft tissue structures of the upper abdomen. RAD/Chest PA and Lateral IMPRESSION: Progressive CHF as compared to prior study. Electronically Signed: Sergio Leon MD at 9:50 EDT Tel [phone], Service support ,
[2017-10-20 06:13] LABS: Absolute Lymphocyte Count 0.91 X10^3/ul (0.83-4.51); Basophil# 0.03 X10^3/uL; Basophil% 0.3 % (0-1); Eosinophil# 0.07 X10^3/uL; Eosinophils% 0.7 % (0-5); Hematocrit 30.1 % (37-47); Hemoglobin 8.1 g/dl (12.0-15.0); Lymphocyte # 0.91 X10^3/ul (4.0); Lymphocyte % 8.6 % (19-41); Mean Corp Hgb Conc 26.9 g/gl (32-36); Mean Corpuscular Hgb 24.9 pg (27.0-32.0); Mean Corpuscular Volume 92.6 fL (81-99); Mean Platelet Vol. 11.2 fl (6.2-12.0); Monocyte# 0.65 X10^3/uL; Monocyte% 6.1 % (0-10); Neutrophil # 8.96 X10^3/uL (2.7-7.7); Neutrophil % 84.2 % (47-70); Platelet Count 248 K/mm3 (150-450); RBC Distribution Width CV 18.8 % (11.6-14.6); RBC Distribution Width SD 61.1 fl (35.1-43.9); Red Blood Count 3.25 M/mm3 (4.2-5.4); White Blood Count 10.6 K/mm3 (4.4-11.0)
[2017-10-20 06:31] LABS: Anion Gap 6 (5-15); BUN 37 mg/dL (7-18); BUN/Creat Ratio 24.2 RATIO (10-20); Calcium,Total 8.4 mg/dL (8.5-10.1); Chloride 111 mmol/L (98-107); Creatinine, Serum 1.53 mg/dL (0.55-1.02); EST Glomerular Filtration Rate 35 mL/min (>60); Est Glom Filt Rate - Afr Amer 42 mL/min (>60); Glucose 129 mg/dL (74-106); Potassium 4.3 mmol/L (3.5-5.1); Sodium Level 152 mmol/L (136-145)
[2017-10-20 06:34] LABS: POSITIVE COUNT NO; POSITIVE DIFFERENTIAL NO; POSITIVE MORPHOLOGY NO
--- NOTE | 2017-10-20 07:29 | PCM.CONS.C ---
Reason for Consult Date of Consultation: 10/20/17 Reason for Consultation: Shortness of breath. History of Present Illness: The patient is a 82 year old F who is being admitted for at least the third time this year with shortness of breath. She was admitted in July of this year and was diagnosed with having congestive heart failure. She was admitted again in October of this year with an exacerbation of congestive heart failure was recently discharged and had her Lasix dose adjusted. She presented back to the emergency room yesterday complaining of shortness of breath but no chest pain. She denied any palpitations or paroxysmal nocturnal dyspnea she said that she had been compliant with her medications. In the emergency room she was noted to be in atrial fibrillation with a controlled ventricular response rate. Her troponin was abnormal and she was admitted to the telemetry care unit. She does have a history of hypertension mild left ventricular systolic dysfunction with an estimated ejection fraction of 50% with an akinetic apex and pulmonary to systolic pressure of 46 mmHg. She also has a history of coronary artery bypass surgery. During her previous admissions she has been noted to have paroxysms of atrial fibrillation but with a controlled ventricular response rate and no previous ischemia was noted on her stress testing. [] Past Medical History Allergies/Adverse Reactions: Allergies LEANDER Inhibitors Allergy (Verified 10/16/17 22:39) Unknown Home Medications: Ambulatory Orders Medication Instructions Recorded Atorvastatin Calcium [Lipitor] 40 mg PO QHS 04/19/17 Calcium Carbonate/Vitamin D3 1 each PO BID 04/19/17 [Calcium 500-Vit D3 600 Tablet] Insulin Detemir [Levemir] 30 unit SQ BID 04/19/17 Isosorbide Mononitrate [Imdur] 30 mg PO DAILY 04/19/17 Mirtazapine [Remeron] 15 mg PO QHS 04/19/17 Multivitamin [Daily Multiple 1 each PO DAILY 04/19/17 Vitamin] Omeprazole 40 mg PO DAILY 04/19/17 Acetaminophen [Tylenol Tablet] 650 mg PO Q6H PRN PRN tablet 08/13/17 Metoprolol Tartrate [Lopressor 12.5 mg PO BID #60 tab 08/13/17 (beta joan)] Hydralazine HCl 50 mg PO 4X/DAY #90 tab 09/27/17 Nystatin Powder [Mycostatin Powder] 1 applic TOPICAL BID bottle 09/27/17 Furosemide 40 mg PO BID #60 tab 10/18/17 Past Medical History (Chronic Problems): Chronic Problems (Last Reviewed 10/17/17 @ 01:46 by Campos Aquino DO) Anemia (Chronic) Chronic renal failure, stage 3 (moderate) (Chronic) Poor dental hygiene (Chronic) History of coronary artery bypass graft (Chronic) Chronic hypoxemic respiratory failure (Chronic) Afib (Chronic) Gastric ulcer (Chronic) Colon polyps (Chronic) CAD (coronary artery disease) (Chronic) Surgical History: coronary bypass surgery, - - appendectemy, cholecystectemy, tonsil and adenoids, cabg - she cannot having any stents Psychiatric History: Depression SPORT PSYCHOLOGIST History: No pertinent SPORT PSYCHOLOGIST history - *Family History Maternal History Items: No pertinent history Smoking Status: Never smoker Alcohol: None Drugs: None Review of Systems - Review of Systems General: Denies: Fever, Night Sweats, Fatigue Cardiovascular: Reports: Shortness of Breath, Shortness of Breath at Rest, Shortness of Breath with Exertion. Denies: Chest Discomfort, Orthopnea, PND, Peripheral Edema, Palpitations, Lightheadedness, Dizziness, Near Syncope, Syncope Respiratory: Denies: Cough, Sputum Production, Hemoptysis Gastrointestinal: Denies: Hematemesis, Hematochezia, Melena Genitourinary: Denies: Dysuria, Hematuria Skin: Denies: Rash Psychiatric: Reports: Anxiety Subjectve: Elderly lady in mild respiratory distress Objective: Vital Signs Temp Pulse Resp BP Pulse Ox 98.6 F 77 20 H 132/50 H 97 10/20/17 04:35 10/20/17 04:35 10/20/17 04:35 10/20/17 04:35 10/20/17 04:35 Oxygen Flow Rate (L/min) 5 Oxygen Delivery Method Nasal Cannula Weight: 191 lb 12.835 oz Body Mass Index (BMI) 32.9 General: Awake, Alert, Oriented x 3 HEENT: PERRL, EOMI, Sclera Non Icteric Neck: Supple, Good ROM, No Lymph Node Enlargement Lungs: Diminished Will Bases Cardiovascular: Irregular Rhythm, Normal S1, Normal S2, No Murmurs, No Rubs, No Gallops Vascular: No Carotid Bruits, Normal Femoral Pulses, Normal Radial Pulses, Normal Dorsalis Pedal Pulse, Normal Posterior Tibial Pulses Abdomen: Bowel Sounds Present, Soft, Non Tender, No HSM, No Organomegaly Extremities: No Cyanosis, No Clubbing, No edema Neurological: No Focal Motor or Sensory Deficit Psych/Mental Status: Appropriate 10/20/17 01:02: Troponin I 4.580 H* 10/20/17 02:30: Troponin I 4.790 H* 10/20/17 05:25: Sodium 152 H, Potassium 4.3, Chloride 111 H, Carbon Dioxide 35.0 H, Anion Gap 6, BUN 37 H, Creatinine 1.53 H, Est GFR (MDRD) Af Amer 42 L, Est GFR (MDRD) Non-Af 35 L, BUN/Creatinine Ratio 24.2 H, Glucose 129 H, Calcium 8.4 L, Troponin I 4.390 H* 10/20/17 05:25: WBC 10.6, RBC 3.25 L, Hgb 8.1 L, Hct 30.1 L, MCV 92.6, MCH 24.9 L, MCHC 26.9 L, RDW 18.8 H, RDW Differential 61.1 H, Plt Count 248, MPV 11.2, Immature Gran % (Auto) 0.100, Neut % (Auto) 84.2 H, Lymph % (Auto) 8.6 L, Dunn % (Auto) 6.1, Eos % (Auto) 0.7, Baso % (Auto) 0.3, Absolute Neuts (auto) 9.0 H, Total Counted Not Reportable Rhythm: EKG: Atrial fibrillation with a rate of 85 bpm and occasional premature ventricular complexes Assessment/Plan 1. Non-ST elevation myocardial infarction She presents with shortness of breath and now has a non-ST elevation myocardial infarction. At this point especially with her recurrent admissions it is felt that her coronary anatomy needs to be evaluated with a possible view to revascularization. We will attempt to perform the above within the next 24-48 hours. 2. Acute congestive heart failure-diastolic She presents with shortness of breath and appears to be in congestive heart failure. She improves with diuresis. The above is likely secondary to a combination of coronary artery disease as well as her atrial fibrillation. Her echocardiogram will be repeated especially as she has some evidence of renal dysfunction. This would obviate the need for a left ventriculogram after her heart catheterization. 3. Hypertension High blood pressure appears to be mildly elevated. This needs to be optimized further. I would recommend increase in her beta-joan. 4. Paroxysmal atrial fibrillation. She does appear to have the above with a controlled ventricular response rate. At this time she will remain anticoagulated with the heparin or Lovenox and this will be discontinued at the appropriate time for her to undergo any invasive procedure. 5. Hyperlipidemia She will continue with aggressive risk factor modification.
--- NOTE | 2017-10-20 07:38 | CON.PCM_ITS ---
Reason for Consult Date of Consultation: 10/20/17 Reason for Consultation: Shortness of breath. History of Present Illness: The patient is a 82 year old F who is being admitted for at least the third time this year with shortness of breath. She was admitted in July of this year and was diagnosed with having congestive heart failure. She was admitted again in October of this year with an exacerbation of congestive heart failure was recently discharged and had her Lasix dose adjusted. She presented back to the emergency room yesterday complaining of shortness of breath but no chest pain. She denied any palpitations or paroxysmal nocturnal dyspnea she said that she had been compliant with her medications. In the emergency room she was noted to be in atrial fibrillation with a controlled ventricular response rate. Her troponin was abnormal and she was admitted to the telemetry care unit. She does have a history of hypertension mild left ventricular systolic dysfunction with an estimated ejection fraction of 50% with an akinetic apex and pulmonary to systolic pressure of 46 mmHg. She also has a history of coronary artery bypass surgery. During her previous admissions she has been noted to have paroxysms of atrial fibrillation but with a controlled ventricular response rate and no previous ischemia was noted on her stress testing. [] Past Medical History Allergies/Adverse Reactions: Allergies LEANDER Inhibitors Allergy (Verified 10/16/17 22:39) Unknown Home Medications: Ambulatory Orders Medication Instructions Recorded Atorvastatin Calcium [Lipitor] 40 mg PO QHS 04/19/17 Calcium Carbonate/Vitamin D3 1 each PO BID 04/19/17 [Calcium 500-Vit D3 600 Tablet] Insulin Detemir [Levemir] 30 unit SQ BID 04/19/17 Isosorbide Mononitrate [Imdur] 30 mg PO DAILY 04/19/17 Mirtazapine [Remeron] 15 mg PO QHS 04/19/17 Multivitamin [Daily Multiple 1 each PO DAILY 04/19/17 Vitamin] Omeprazole 40 mg PO DAILY 04/19/17 Acetaminophen [Tylenol Tablet] 650 mg PO Q6H PRN PRN tablet 08/13/17 Metoprolol Tartrate [Lopressor 12.5 mg PO BID #60 tab 08/13/17 (beta joan)] Hydralazine HCl 50 mg PO 4X/DAY #90 tab 09/27/17 Nystatin Powder [Mycostatin Powder] 1 applic TOPICAL BID bottle 09/27/17 Furosemide 40 mg PO BID #60 tab 10/18/17 Past Medical History (Chronic Problems): Chronic Problems (Last Reviewed 10/17/17 @ 01:46 by Campos Aquino DO) Anemia (Chronic) Chronic renal failure, stage 3 (moderate) (Chronic) Poor dental hygiene (Chronic) History of coronary artery bypass graft (Chronic) Chronic hypoxemic respiratory failure (Chronic) Afib (Chronic) Gastric ulcer (Chronic) Colon polyps (Chronic) CAD (coronary artery disease) (Chronic) Surgical History: coronary bypass surgery, - - appendectemy, cholecystectemy, tonsil and adenoids, cabg - she cannot having any stents Psychiatric History: Depression 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 Denies: Chest Discomfort, Orthopnea, PND, Peripheral Edema, Palpitations, Lightheadedness, Dizziness, Near Syncope, Syncope Respiratory: Denies: Cough, Sputum Production, Hemoptysis Gastrointestinal: Denies: Hematemesis, Hematochezia, Melena Genitourinary: Denies: Dysuria, Hematuria Skin: Denies: Rash Psychiatric: Reports: Anxiety Subjectve: Elderly lady in mild respiratory distress Objective: Vital Signs Temp Pulse Resp BP Pulse Ox 98.6 F 77 20 H 132/50 H 97 10/20/17 04:35 10/20/17 04:35 10/20/17 04:35 10/20/17 04:35 10/20/17 04:35 Oxygen Flow Rate (L/min) 5 Oxygen Delivery Method Nasal Cannula Weight: 191 lb 12.835 oz Body Mass Index (BMI) 32.9 General: Awake, Alert, Oriented x 3 HEENT: PERRL, EOMI, Sclera Non Icteric Neck: Supple, Good ROM, No Lymph Node Enlargement Lungs: Diminished Will Bases Cardiovascular: Irregular Rhythm, Normal S1, Normal S2, No Murmurs, No Rubs, No Gallops Vascular: No Carotid Bruits, Normal Femoral Pulses, Normal Radial Pulses, Normal Dorsalis Pedal Pulse, Normal Posterior Tibial Pulses Abdomen: Bowel Sounds Present, Soft, Non Tender, No HSM, No Organomegaly Extremities: No Cyanosis, No Clubbing, No edema Neurological: No Focal Motor or Sensory Deficit Psych/Mental Status: Appropriate 10/20/17 01:02: Troponin I 4.580 H* 10/20/17 02:30: Troponin I 4.790 H* 10/20/17 05:25: Sodium 152 H, Potassium 4.3, Chloride 111 H, Carbon Dioxide 35.0 H, Anion Gap 6, BUN 37 H, Creatinine 1.53 H, Est GFR (MDRD) Af Amer 42 L, Est GFR (MDRD) Non-Af 35 L, BUN/Creatinine Ratio 24.2 H, Glucose 129 H, Calcium 8.4 L, Troponin I 4.390 H* 10/20/17 05:25: WBC 10.6, RBC 3.25 L, Hgb 8.1 L, Hct 30.1 L, MCV 92.6, MCH 24.9 L, MCHC 26.9 L, RDW 18.8 H, RDW Differential 61.1 H, Plt Count 248, MPV 11.2, Immature Gran % (Auto) 0.100, Neut % (Auto) 84.2 H, Lymph % (Auto) 8.6 L, [place] % (Auto) 6.1, Eos % (Auto) 0.7, Baso % (Auto) 0.3, Absolute Neuts (auto) 9.0 H, Total Counted Not Reportable Rhythm: EKG: Atrial fibrillation with a rate of 85 bpm and occasional premature ventricular complexes Assessment/Plan 1. Non-ST elevation myocardial infarction * She presents with shortness of breath and now has a non-ST elevation myocardial infarction. At this point especially with her recurrent admissions it is felt that her coronary anatomy needs to be evaluated with a possible view to revascularization. * We will attempt to perform the above within the next 24-48 hours. * 2. Acute congestive heart failure-diastolic * She presents with shortness of breath and appears to be in congestive heart failure. She improves with diuresis. The above is likely secondary to a combination of coronary artery disease as well as her atrial fibrillation. * Her echocardiogram will be repeated especially as she has some evidence of renal dysfunction. This would obviate the need for a left ventriculogram after her heart catheterization. * 3. Hypertension * High blood pressure appears to be mildly elevated. This needs to be optimized further. I would recommend increase in her beta-joan. * 4. Paroxysmal atrial fibrillation. * She does appear to have the above with a controlled ventricular response rate. At this time she will remain anticoagulated with the heparin or Lovenox and this will be discontinued at the appropriate time for her to undergo any invasive procedure. * 5. Hyperlipidemia * She will continue with aggressive risk factor modification.
--- NOTE | 2017-10-20 07:44 | ECHOD_ITS ---
Version 2 Reason For Study: s/p CABG, NSTEMI Procedure This was a 2D Doppler, Color Flow transthoracic echocardiogram. Exam performed portable in patient room. Left Ventricle Mildly dilated left ventricle. Moderate concentric left ventricular hypertrophy. The estimated ejection fraction is 45 %. Mild to moderate segmental systolic dysfunction (see wall motion). [place] : Severely Hypokinetic. Infero-Basal: Hypokinetic. Septal [place] : Hypokinetic. The rest of the wall segments are normal. Anterior [place] : Hypokinetic. Right Ventricle Normal RV size. Normal systolic function. Atria The left atrium is moderately enlarged. Normal right atrium. Mitral Valve Normal mitral valve. Moderate (2+) eccentric mitral valve insufficiency. Tricuspid Valve Normal tricuspid valve. Moderate (2+) tricuspid valve insufficiency. Pulmonary artery systolic pressure is 59 mmHg. Moderate pulmonary hypertension. Aortic Valve Trisinus/trileaflet aortic valve. Mild focal aortic valve calcification. Mild (1+) eccentric aortic valve insufficiency. Pulmonic Valve Normal pulmonic valve. Mild (1+) pulmonic valve insufficiency. Great Vessels Normal aortic root. The pulmonary artery is normal size. Normal inferior vena cava. Pericardium/Pleural No pericardial effusion. MMode/2D Measurements & Calculations LVIDd: 6.2 cm IVSd: 1.9 cm Ao root diam: 3.3 cm LVIDs: 4.8 cm LVPWd: 1.3 cm RVDd: 4.2 cm FS: 22.5 % LAV(MOD-bp): 98.1 ml LA A4 area: 26.4 cm2 RA A4 area: 15.3 cm2 LAV(MOD-bp) Indexed: 50.6 ml/m2 LAV(MOD-sp2): 90.8 ml LAV(MOD-sp4): 90.3 ml Doppler Measurements & Calculations MV E max luisa: 125.9 cm/sec Ao V2 max: 130.7 cm/sec AI max luisa: 352.3 cm/sec Ao max P.8 mmHg AI max P.6 mmHg Ao V2 mean: 96.0 cm/sec AI dec slope: 184.0 cm/sec2 Ao mean P.1 mmHg AI P1/2t: 560.8 msec Ao V2 VTI: 26.2 cm LV V1 max: 89.6 cm/sec PA V2 max: 96.5 cm/sec PI end-d luisa: 154.3 cm/sec LV V1 max P.2 mmHg TR max luisa: 373.0 cm/sec TR max P.7 mmHg Interpretation Summary Mildly dilated left ventricle. Moderate concentric left ventricular hypertrophy. The estimated ejection fraction is 45 %. Mild to moderate segmental systolic dysfunction (see wall motion). The left atrium is moderately enlarged. Moderate (2+) eccentric mitral valve insufficiency. Moderate pulmonary hypertension. Compared to the previous the findings are not completely changed. Ordering Physician: Ángel Micehlle Referring Physician: Eliot Loja Performed By: Felicia Espinoza, RDCS, RVT
[2017-10-20] MEDS: Aspirin E.C. 81 MG Tablet PO (08:53)
[2017-10-20] MEDS: Metoprolol Tartrate 25 MG Tablet PO ×2 (08:53→22:18)
[2017-10-20] MEDS: Clopidogrel Bisulfate 300 MG Tablet PO (08:53)
[2017-10-20] MEDS: amLODIPine 5 MG Tablet PO (08:53)
[2017-10-20] MEDS: Isosorbide Mononitrate 30 MG Tablet PO (08:54)
[2017-10-20] MEDS: Multivitamins,Therapeutic Tablet 1 TABLET PO (08:54)
[2017-10-20] MEDS: Pantoprazole Sodium 40 MG Tablet PO (08:54)
[2017-10-20] MEDS: Calcium Carb/Vitamin D 1 TABLET Tablet PO ×2 (08:54→22:18)
[2017-10-20] MEDS: Ceftriaxone 1 GM/50 ML BAG IV (09:03)
[2017-10-20 09:35] LABS: Bedside Glucose 125 mg/dL (70-110)
[2017-10-20] MEDS: Furosemide 40 MG/4 ML Vial IV ×3 (09:47→18:39)
--- NOTE | 2017-10-20 11:14 | PCM.PN.HOSP ---
Patient Problems: Active and Suspected Problems (Last Reviewed 10/17/17 @ 01:46 by Campos Aquino DO) CAP (community acquired pneumonia) (Acute) NSTEMI (non-ST elevated myocardial infarction) (Acute) Subjective: The patient is a 82 year old female w/ h/o coronary artery disease, chronic respiratory failure due to CHF on home oxygen 2 L, CHF, diabetes, chronic kidney disease, and HTN was admitted on 10/19/2017 with a complaint of shortness of breath. She was discharged just 2 days ago after being admitted for acute CHF exacerbation and she had presented then with shortness of breath 2. She had had another admission in late September for similar presentation and also managed for CHF exacerbation. She claims compliance with her medications. She denied any chest pain. However on admission, troponin was noted to be elevated at 4.[address] changes. She was admitted and is being managed for acute CHF exacerbation and an STEMI. She is on heparin drip. Cardiology is on board. She had no complaints but was visibly short of breath. She is on 5 L by nasal cannula at time of review with her baseline oxygen level being at 2. She denied any fever or chills, any chest pain, any abdominal pain, any diarrhea vomiting. Review of systems otherwise negative. Vitals/I&O's: Vital Signs Temp Pulse Resp BP Pulse Ox 98.6 F 62 19 H 93/46 L 99 10/20/17 10:50 10/20/17 10:50 10/20/17 10:50 10/20/17 10:50 10/20/17 10:50 Oxygen Flow Rate (L/min) 5 Oxygen Delivery Method Nasal Cannula Weight: 191 lb 12.835 oz Body Mass Index (BMI) 32.9 General: Alert, Oriented x3, Cooperative, - - moderate respiratory distress HEENT: Atraumatic, PERRLA, EOMI, Normocephalic Oral: Moist Mucosa Neck: Supple, No JVD, Negative Carotid Bruits Lungs: - - Coarse crackles in mid and lower lung johnson bilaterally. on 5L of oxygen Cardiovascular: Regular rate, Regular Rhythm, Normal S1, Normal S2, No murmurs Abdomen: Bowel Sounds Present, Soft, Non Tender Extremities: No clubbing, No cyanosis, No edema, Capillary Refill Less than 3 Seconds Skin: No rashes, No breakdown Musculoskeletal: No Tenderness to Palpation of Joints or Extremities Lymphatic: No Cervical, Supraclavicular, or Inguinal Adenopathy Neurological: Cranial nerves II-XII grossly intact Psych/Mental Status: Normal Affect, Appropriate, Alert and oriented to time, place, person, mood and affect Microbiology Past 72 Hours 10/20/17 01:28 Mucosa - Nasopharyngeal Influenza Types A,B Direct FA (SIXTO) - Final Laboratory Results 10/20/17 00:56: POC Glucose 103 10/20/17 01:02: Troponin I 4.580 H* 10/20/17 02:30: Troponin I 4.790 H* 10/20/17 05:25: Sodium 152 H, Potassium 4.3, Chloride 111 H, Carbon Dioxide 35.0 H, Anion Gap 6, BUN 37 H, Creatinine 1.53 H, Estim Creat Clear Calc 24.90, Est GFR (MDRD) Af Amer 42 L, Est GFR (MDRD) Non-Af 35 L, BUN/Creatinine Ratio 24.2 H, Glucose 129 H, Calcium 8.4 L, Troponin I 4.390 H* 10/20/17 05:25: WBC 10.6, RBC 3.25 L, Hgb 8.1 L, Hct 30.1 L, MCV 92.6, MCH 24.9 L, MCHC 26.9 L, RDW 18.8 H, RDW Differential 61.1 H, Plt Count 248, MPV 11.2, Immature Gran % (Auto) 0.100, Neut % (Auto) 84.2 H, Lymph % (Auto) 8.6 L, [place] % (Auto) 6.1, Eos % (Auto) 0.7, Baso % (Auto) 0.3, Absolute Neuts (auto) 9.0 H, Absolute Lymphs (auto) 0.91, Total Counted Not Reportable 10/20/17 09:01: POC Glucose 125 H Current Medications Acetaminophen (Tylenol) 650 mg PO Q6H PRN PRN PRN Reason: Mild Pain (scale 0-3)/T>100.7 Albuterol/Ipratropium (Duoneb) 3 ml INHALATION Q4H.RT PRN PRN Reason: Wheezing Amlodipine Besylate (Norvasc) 5 mg PO DAILY [facility] Last Admin: 10/20/17 08:53 Dose: 5 mg Aspirin (Ecotrin) 81 mg PO DAILY@0800 [facility] Last Admin: 10/20/17 08:53 Dose: 81 mg Atorvastatin Calcium (Lipitor) 40 mg PO QHS [facility] Calcium/Vitamin D (Os-West 500mg + D) 1 tablet PO BID [facility] Last Admin: 10/20/17 08:54 Dose: 1 tablet Clopidogrel Bisulfate (Plavix) 75 mg PO DAILY [facility] Enoxaparin Sodium (Lovenox) 100 mg SC X1 ONE Stop: 10/20/17 14:01 Furosemide (Lasix) 40 mg IV BID@1000,1800 [facility] Last Admin: 10/20/17 09:47 Dose: 40 mg Azithromycin 500 mg/ Dextrose 255 mls @ 250 mls/hr IV Q24 [facility] Stop: 10/22/17 11:02 Last Admin: 10/20/17 09:48 Dose: 250 mls/hr Ceftriaxone Sodium (Rocephin) 1 gm in 50 mls @ 100 mls/hr IV Q24 [facility] Last Admin: 10/20/17 09:03 Dose: 100 mls/hr Insulin Glargine (Lantus (Bkc)) 30 units SC BID [facility] Isosorbide Mononitrate (Imdur) 30 mg PO DAILY [facility] Last Admin: 10/20/17 08:54 Dose: 30 mg Magnesium Hydroxide (Milk Of Magnesia) 30 ml PO DAILY PRN PRN PRN Reason: Constipation Metoprolol Tartrate (Lopressor (Beta Rah)) 25 mg PO BID [facility] Last Admin: 10/20/17 08:53 Dose: 25 mg Mirtazapine (Remeron) 15 mg PO QHS [facility] Multivitamins (Multivitamin) 1 tablet PO DAILY@0800 [facility] Last Admin: 10/20/17 08:54 Dose: 1 tablet Pantoprazole Sodium (Protonix) 40 mg PO DAILY [facility] Last Admin: 10/20/17 08:54 Dose: 40 mg Sodium Chloride () 5 - 30 ml IV UD PRN PRN Reason: SALINE FLUSH Medical Necessity - Tobacco Use Smoking Status: Never smoker Assessment/Plan All Active Problems (Last Reviewed 10/17/17 @ 01:46 by Campos Aquino DO) Type 2 diabetes mellitus (Acute) CAP (community acquired pneumonia) (Acute) NSTEMI (non-ST elevated myocardial infarction) (Acute) Acute on chronic combined systolic and diastolic heart failure (Acute) Acute kidney injury superimposed on chronic kidney disease (Resolved) Acute respiratory failure with hypoxia (Resolved) COPD exacerbation (Resolved) Chest pain (Resolved) Fall (Resolved) Hyperkalemia (Resolved) 82-year-old female admitted with a complaint of shortness of breath. Been managed for CHF exacerbation and NSTEMI. 1. Acute exacerbation of CHF This is the third admission patient has had about 2 weeks for CHF exacerbation. She was just discharged 2 days ago after being admitted and managed for CHF exacerbation. Claims compliance with her medications. Her home dose of Lasix was actually increased at time of discharge 2 days ago from 40 mg daily to 40 mg twice daily. Came in with acute onset shortness of breath requiring increasing amounts of oxygen. Usually on 2 L of oxygen at home and is not requiring 5 L of oxygen. EKG and admission showed only A. fib with no acute ST changes. Troponin was elevated at 4.79. BN pep on 1945 this time Chest x-ray showed progressive worsening of CHF.. Will get echo during this admission per cardiology. being diuresed with IV Lasix 40 mg twice daily. strict input output charting. fluid restriction to 1500cc over 24 hours 2. NSTEMI Troponin was 4.58 on admission and went up to 4.79 and trended slightly down to 4.39 EKG showed no acute ST changes. Started on heparin drip. On aspirin and Plavix. Cardiology on board. On beta-blockers well. Per cardiology, will do a cath 3. AFib: rate controlled. Currently on heparin drip 4. Acute on chronic hypoxic respiratory failure due to CHF exacerbation is on 2L of oxygen baseline at home; at time of discharge 2 days ago, was saturating ~ 88-89% on 2L of oxygen, which increased to 92% on 3L of oxygen patient now requiring 5 L of oxygen by nasal canula For cath to investigate if coronary disease is responsible for frequent CHF exacerbations and acute on chronic respiratory failure. Breathing treatments. On IV ceftriaxone and azithromycin for possible H. However chest x-ray showed no infiltrate patient has no leukocytosis and no fever. I really do not think patient has any pneumonia as all his symptoms can be explained by the CHF exacerbation. Will therefore DC antibiotics. 5. Hypertension: patient was hypotensive overnight, with BP going down to 93/46. This may be due to aggressive diuresis. Will hold BP meds and monitor for possible cardiogenic shock. 6. Hypernatremia: this is chronic. Na is 152 today. This may be because of hypervolemic hypernatremia. Will monitor with diuresis 7. CKD 3: Cr is 1.53, which is around her baseline of 1.4-1.6. will monitor 8. Diabetes mellitus: on lantus 30IU bid. Accuchecks ACHS. ISS 9. DVT prophylaxis: on heparin drip This note was generated with eInstruction by [employer] software. It may contain incorrect words, spelling, and punctuation that were not noted in checking the note before signing. Code Visit Inpatient E&M: 87963 Subs Hosp L3
--- NOTE | 2017-10-20 11:52 | CASEMGMT ---
JANETT CM Readmission Note. DC date 09/27/17 Treatment for CHF exacerbation, resp failure. Diuresis w/Lasix and 2-3L NC. Pt has home oxygen through Pt was dc'd 09/27/17 to home with resumption of Pass[facility]. 10/19/17- Admitted to PCU for evaluation of R facial droop, R leg weakness, slurred speech and expressive aphasia. CT neg, MRI ordered. PT/OT evaluations pending. -Pt is receiving home health aides 2x week for 2 hours/day. Will follow PT/OT evaluations for dc planning. Radha HERMAN RN ACM
[2017-10-20 12:16] LABS: Bedside Glucose 164 mg/dL (70-110)
--- NOTE | 2017-10-20 12:33 | CASEMGMT ---
JANETT CM Readmission Note. DC date 09/27/17 Treatment for CHF exacerbation, resp failure. Diuresis w/Lasix and 2-3L NC. Pt has home oxygen through [facility] 2-3L NC. Pt was dc'd 09/27/17 to home with resumption of Passport services through [employer] /[employer]. 10/19/17- Admitted to PCU for evaluation of R facial droop, R leg weakness, slurred speech and expressive aphasia. CT neg, MRI ordered. PT/OT evaluations pending. -Pt is receiving home health aides 2x week for 2 hours/day. Call to [employer] [facility] @ . Message left that pt is @ [facility]. -Call to [facility] [employer] Work Program Director to notify of admission, message left requesting call back to verify services. -Will follow PT/OT evaluations for dc planning. Radha HERMAN RN AC
[2017-10-20] MEDS: Enoxaparin 100 MG/ML Syringe SC (16:06)
[2017-10-20 16:50] LABS: Bedside Glucose 207 mg/dL (70-110)
[2017-10-20] MEDS: 0.9% NaCl Peripheral Flush Adult/Peds IV ×2 (17:44→18:39)
[2017-10-20] MEDS: Mirtazapine 15 MG Tablet PO (22:18)
[2017-10-20] MEDS: Atorvastatin Calcium 40 MG Tablet PO (22:18)
[2017-10-20 23:21] LABS: Bedside Glucose 241 mg/dL (70-110)
[2017-10-21] VITALS (22 sets, daily range): BP systolic 114–141; BP diastolic 42–71; PULSE 54–84; RESP 12–26; TEMP 36.6–37.1; O2SAT 91–98
--- NOTE | 2017-10-21 05:00 | EKG12_ITS ---
Test Reason : AM EKG Blood Pressure : / mmHG Vent. Rate : 067 BPM Atrial Rate : 375 BPM P-R Int : 000 ms QRS Dur : 124 ms QT Int : 446 ms P-R-T Axes : 000 004 167 degrees QTc Int : 471 ms Atrial fibrillation Right bundle branch block Anterior Lateral infarct , age undetermined Abnormal ECG Confirmed by YIMI STOVALL, NICOLE ([id number]), magazine editor STEFANIA WILDER ([id number]) on 10/23/2017 2:02:58 PM Referred By: KARLA Confirmed By:NICOLE GELLER MD
[2017-10-21 05:03] LABS: International Normalized Ratio 1.3; Prothrombin Time (Protime)PT. 16.2 SECONDS (11.7-14.9)
[2017-10-21 05:04] LABS: Absolute Lymphocyte Count 0.98 X10^3/ul (0.83-4.51); Absolute Neutrophil Count 6.6 X10^3/uL (2.0-7.7); Basophil# 0.03 X10^3/uL; Basophil% 0.4 % (0-1); Eosinophil# 0.16 X10^3/uL; Eosinophils% 1.9 % (0-5); Hematocrit 31.3 % (37-47); Hemoglobin 8.2 g/dl (12.0-15.0); Lymphocyte # 0.98 X10^3/ul (4.0); Lymphocyte % 11.6 % (19-41); Mean Corp Hgb Conc 26.2 g/gl (32-36); Mean Corpuscular Hgb 24.4 pg (27.0-32.0); Mean Corpuscular Volume 93.2 fL (81-99); Mean Platelet Vol. 10.5 fl (6.2-12.0); Monocyte# 0.71 X10^3/uL; Monocyte% 8.4 % (0-10); Neutrophil # 6.56 X10^3/uL (2.7-7.7); Neutrophil % 77.6 % (47-70); Partial Thromboplast Time 34.8 Seconds (24.1-36.2); Platelet Count 249 K/mm3 (150-450); RBC Distribution Width CV 18.9 % (11.6-14.6); RBC Distribution Width SD 64.3 fl (35.1-43.9); Red Blood Count 3.36 M/mm3 (4.2-5.4); White Blood Count 8.5 K/mm3 (4.4-11.0)
[2017-10-21 05:06] LABS: POSITIVE COUNT NO; POSITIVE DIFFERENTIAL NO; POSITIVE MORPHOLOGY NO
[2017-10-21 05:18] LABS: Anion Gap 7 (5-15); BUN 50 mg/dL (7-18); BUN/Creat Ratio 28.9 RATIO (10-20); Calcium,Total 8.2 mg/dL (8.5-10.1); Chloride 112 mmol/L (98-107); Creatinine, Serum 1.73 mg/dL (0.55-1.02); EST Glomerular Filtration Rate 30 mL/min (>60); Est Glom Filt Rate - Afr Amer 36 mL/min (>60); Estimated Creatinine Clearance 22.02 ml/min; Glucose 166 mg/dL (74-106); Potassium 4.4 mmol/L (3.5-5.1); Sodium Level 155 mmol/L (136-145)
[2017-10-21] MEDS: 0.9% Normal Saline 1,000 ML 15 ML IV (06:29)
[2017-10-21] MEDS: Aspirin E.C. 81 MG Tablet PO (06:29)
[2017-10-21] MEDS: Clopidogrel Bisulfate 75 MG Tablet PO (06:29)
[2017-10-21] MEDS: amLODIPine 5 MG Tablet PO (06:29)
[2017-10-21] MEDS: Isosorbide Mononitrate 30 MG Tablet PO (06:30)
[2017-10-21 06:40] LABS: Bedside Glucose 148 mg/dL (70-110)
--- NOTE | 2017-10-21 06:46 | NURSING ---
This nurse contacted equipment operator/laborer/supervisor to see if pt. going for heart cath today. slab conditioner supervisor stated pt. will not have heart cath today. No reason given.
[2017-10-21] MEDS: Calcium Carb/Vitamin D 1 TABLET Tablet PO ×2 (08:46→22:36)
[2017-10-21] MEDS: Furosemide 40 MG/4 ML Vial IV ×2 (08:46→17:23)
[2017-10-21] MEDS: Multivitamins,Therapeutic Tablet 1 TABLET PO (08:46)
[2017-10-21] MEDS: Metoprolol Tartrate 25 MG Tablet PO ×2 (08:46→22:36)
[2017-10-21] MEDS: Pantoprazole Sodium 40 MG Tablet PO (08:46)
[2017-10-21] MEDS: 0.9% NaCl Peripheral Flush Adult/Peds IV ×2 (08:53→16:22)
--- NOTE | 2017-10-21 09:36 | CASEMGMT ---
JANETT CM NOTE: Insurance Review for In-Network facilities for [employer]: [facility] NAIDA Riki AMARON RN CM
[2017-10-21 12:00] LABS: Bedside Glucose 204 mg/dL (70-110)
[2017-10-21 12:16] LABS: Allen Test POS; Base Excess 12 mmol/L (-2 to +2); Bicarbonate 35.9 mmol/L (22-26); Blood Gas Specimen Type ART; O2 Delivery Device Nasal Can; PO2 81 mmHG (75-100); SITE R Brachial; SO2 96 % (95-99); Time Given 1200; Total Carbon Dioxide 38 mmol/L; pH 7.44 (7.35-7.45)
--- NOTE | 2017-10-21 12:18 | PCM.PN.HOSP ---
Patient Problems: Active and Suspected Problems (Last Reviewed 10/17/17 @ 01:46 by Campos Aquino DO) CAP (community acquired pneumonia) (Acute) NSTEMI (non-ST elevated myocardial infarction) (Acute) Subjective: Patient seen and examined. She remains short of breath and looks like it is actually worsened, with oxygen level not been up to 6 L. Patient is still unable to complete sentences due to shortness of breath. She denies any fever or chills, any cough, any chest pain, abdominal pain, any diarrhea vomiting. Review of systems otherwise negative. Vitals/I&O's: Vital Signs Temp Pulse Resp BP Pulse Ox 97.8 F 70 20 H 131/55 H 96 10/21/17 10:35 10/21/17 11:00 10/21/17 10:35 10/21/17 10:35 10/21/17 10:35 Oxygen Flow Rate (L/min) 6 Oxygen Delivery Method Nasal Cannula Weight: 191 lb 12.835 oz Body Mass Index (BMI) 32.9 Intake and Output for Last 24 Hours 10/19/17 10/20/17 10/21/17 23:59 23:59 23:59 Intake Total 646 / 646 360 / 360 Output Total 775 / 775 900 / 900 Balance -129 / -129 -540 / -540 General: Alert, Oriented x3, Cooperative, - - moderate respiratory distress HEENT: Atraumatic, PERRLA, EOMI, Normocephalic Oral: Moist Mucosa Neck: Supple, No JVD, Negative Carotid Bruits Lungs: - - has coarse crackles in all lung johnson bilaterally Cardiovascular: Regular rate, Regular Rhythm, Normal S1, Normal S2, No murmurs Abdomen: Bowel Sounds Present, Soft, Non Tender, Non-Distended, No Hepato-splenomegaly Extremities: No clubbing, No cyanosis, No edema, Capillary Refill Less than 3 Seconds Skin: No rashes, No breakdown Musculoskeletal: No Tenderness to Palpation of Joints or Extremities Lymphatic: No Cervical, Supraclavicular, or Inguinal Adenopathy Neurological: Cranial nerves II-XII grossly intact Psych/Mental Status: Normal Affect, Appropriate, Alert and oriented to time, place, person, mood and affect Microbiology Past 72 Hours 10/20/17 01:28 Mucosa - Nasopharyngeal Influenza Types A,B Direct FA (SIXTO) - Final Laboratory Results 10/20/17 16:45: POC Glucose 207 H 10/20/17 22:21: POC Glucose 241 H 10/21/17 04:47: WBC 8.5, RBC 3.36 L, Hgb 8.2 L, Hct 31.3 L, MCV 93.2, MCH 24.4 L, MCHC 26.2 L, RDW 18.9 H, RDW Differential 64.3 H, Plt Count 249, MPV 10.5, Immature Gran % (Auto) 0.100, Neut % (Auto) 77.6 H, Lymph % (Auto) 11.6 L, [place] % (Auto) 8.4, Eos % (Auto) 1.9, Baso % (Auto) 0.4, Absolute Neuts (auto) 6.6, Absolute Lymphs (auto) 0.98, Total Counted Not Reportable 10/21/17 04:47: Sodium 155 H, Potassium 4.4, Chloride 112 H, Carbon Dioxide 36.0 H, Anion Gap 7, BUN 50 H, Creatinine 1.73 H, Estim Creat Clear Calc 22.02, Est GFR (MDRD) Af Amer 36 L, Est GFR (MDRD) Non-Af 30 L, BUN/Creatinine Ratio 28.9 H, Glucose 166 H, Calcium 8.2 L 10/21/17 04:47: PT 16.2 H, INR 1.3, APTT 34.8 10/21/17 06:36: POC Glucose 148 H 10/21/17 11:52: POC Glucose 204 H 10/21/17 12:10: Specimen Type ART, Sample Site R Brachial, pH 7.44, Bicarbonate Actual 35.9 H, POC Total CO2 38, Base Excess 12 H, O2 Saturation 96, ABG pCO2 53.0 H, ABG pO2 81, Skyler Test POS, O2 Delivery Device Nasal Can, Liter Flow 6.0, Blood Gas Notified Whom HOSP , Blood Gas Notified Time 1200 Current Medications Acetaminophen (Tylenol) 650 mg PO Q6H PRN PRN PRN Reason: Mild Pain (scale 0-3)/T>100.7 Albuterol/Ipratropium (Duoneb) 3 ml INHALATION Q4H.RT PRN PRN Reason: Wheezing Amlodipine Besylate (Norvasc) 5 mg PO DAILY [facility] Last Admin: 10/21/17 06:29 Dose: 5 mg Aspirin (Ecotrin) 81 mg PO DAILY@0800 [facility] Last Admin: 10/21/17 06:29 Dose: 81 mg Atorvastatin Calcium (Lipitor) 40 mg PO QHS [facility] Last Admin: 10/20/17 22:18 Dose: 40 mg Calcium/Vitamin D (Os-West 500mg + D) 1 tablet PO BID [facility] Last Admin: 10/21/17 08:46 Dose: 1 tablet Clopidogrel Bisulfate (Plavix) 75 mg PO DAILY [facility] Last Admin: 10/21/17 06:29 Dose: 75 mg Furosemide (Lasix) 40 mg IV BID@1000,1800 [facility] Last Admin: 10/21/17 08:46 Dose: 40 mg Sodium Chloride () 1,000 mls @ 15 mls/hr IV .Q48H [facility] PRN Reason: KVO Last Admin: 10/21/17 06:29 Dose: 15 mls/hr Insulin Glargine (Lantus (Bkc)) 30 units SC BID [facility] Last Admin: 10/21/17 08:47 Dose: 30 units Isosorbide Mononitrate (Imdur) 30 mg PO DAILY [facility] Last Admin: 10/21/17 06:30 Dose: 30 mg Magnesium Hydroxide (Milk Of Magnesia) 30 ml PO DAILY PRN PRN PRN Reason: Constipation Metoprolol Tartrate (Lopressor (Beta Rah)) 25 mg PO BID [facility] Last Admin: 10/21/17 08:46 Dose: 25 mg Mirtazapine (Remeron) 15 mg PO QHS [facility] Last Admin: 10/20/17 22:18 Dose: 15 mg Multivitamins (Multivitamin) 1 tablet PO DAILY@0800 [facility] Last Admin: 10/21/17 08:46 Dose: 1 tablet Pantoprazole Sodium (Protonix) 40 mg PO DAILY [facility] Last Admin: 10/21/17 08:46 Dose: 40 mg Sodium Chloride () 5 - 30 ml IV UD PRN PRN Reason: SALINE FLUSH Last Admin: 10/21/17 08:53 Dose: 10 ml Medical Necessity - Tobacco Use Smoking Status: Never smoker Assessment/Plan All Active Problems (Last Reviewed 10/17/17 @ 01:46 by Campos Aquino DO) Type 2 diabetes mellitus (Acute) CAP (community acquired pneumonia) (Acute) NSTEMI (non-ST elevated myocardial infarction) (Acute) Acute on chronic combined systolic and diastolic heart failure (Acute) Acute kidney injury superimposed on chronic kidney disease (Resolved) Acute respiratory failure with hypoxia (Resolved) COPD exacerbation (Resolved) Chest pain (Resolved) Fall (Resolved) Hyperkalemia (Resolved) 82-year-old female admitted with a complaint of shortness of breath. Been managed for CHF exacerbation and NSTEMI. 1. Acute exacerbation of CHF SOB is worsening, and she is now on 6L of oxygen by nasal canula made 775mls of urine over last 24 hours,a nd has made 900mls so far today. In negative balance by 129mls over last 24 hours. on IV lasix 40mg bid Echo done (10/20/17): cardiology on board fluid restriction to 1500cc daily Echo showed mildly dilated left ventricle with moderate concentric left ventricular hypertrophy and estimated EF of 45%. Severely hypokinetic apex with hypokinetic inferobasal wall and hypokinetic septal apex. Rest of wall segments are normal. Anterior apex is also hypokinetic. Moderately enlarged left atrium. Pulmonary artery systolic pressure is 59 mmHg indicating moderate pulmonary hypertension. Compared to previous the findings are not completely changed. Patient was due to have cardiac cath today but this was deferred due to concern that she will be able to lie down flat during procedure. 2. NSTEMI Troponin was 4.58 on admission and went up to 4.79 and trended slightly down to 4.39 EKG showed no acute ST changes. remains on heparin drip; on aspirin, plavix and beta blockers cardiac cath deferred today, as explained above in 1. 3. AFib: rate controlled. Currently on heparin drip 4. Acute on chronic hypoxic and hypercapnic respiratory failure due to CHF exacerbation /Requirement is 2 L of oxygen. Now up to 6 L of oxygen in the hospital. Lungs are full of crackles bilaterally. ABG done today showed pH of 7.44 with PO2 of 81, PCO2 of 53. Will benefit from BiPAP due to CO2 retention will also help with CHF. pulmo consult placed 5. Hypertension: stable. 6. Hypernatremia: worsening. Na is now 155; has chronic hypernatremia, but it is worsening. WIll get nephrology consult. I think this is likely due to fluid and salt retention with the inadequate diuresis. 7. CKD 3: Cr is 1.7 today. baseline is 1.4-1.6. Will monitor. Nephro consult placed. 8. Diabetes mellitus: on lantus 30IU bid. Accuchecks ACHS. ISS 9. DVT prophylaxis: on heparin drip This note was generated with [employer] dictation software. It may contain incorrect words, spelling, and punctuation that were not noted in checking the note before signing. Code Visit Inpatient E&M: 34079 Subs Hosp L3
--- NOTE | 2017-10-21 12:20 | CON.PCM_ITS ---
Problem List (1) Acute on chronic respiratory failure with hypoxia and hypercapnia Status: Acute (2) Acute on chronic combined systolic and diastolic heart failure Status: Acute (3) NSTEMI (non-ST elevated myocardial infarction) Status: Acute (4) Anemia Status: Chronic (5) Chronic renal failure, stage 3 (moderate) Status: Chronic (6) Type 2 diabetes mellitus Status: Chronic (7) Poor dental hygiene Status: Chronic (8) History of coronary artery bypass graft Status: Chronic (9) Chronic hypoxemic respiratory failure Status: Chronic (10) Afib Status: Chronic Qualifiers: Atrial fibrillation type: chronic Qualified Code(s): I48.2 - Chronic atrial fibrillation (11) CAD (coronary artery disease) Status: Chronic Reason for Consult Date of Consultation: 10/21/17 Reason for Consultation: hypoxia, dyspnea History of Present Illness: The patient is a 82 year old F with past medical history as below, just discharged 2 days prior from the hospital for CHF exacerbation, presented to the ED with complaints of increased shortness of breath. Her home health aide is present at the time of consultation and is providing majority of information as patient is somewhat of a poor historian. Home health aide reports increased lower extremity edema and shortness of breath at rest. Patient denied any fevers, chills, cough, sputum production, palpitations, dizziness, or syncope. She had some orthopnea. No urinary symptoms. No nausea, vomiting, or diarrhea. No chest pain. The patient is currently being treated with IV Lasix and scheduled DuoNeb aerosols. She has a cumulative fluid balance of -670 mL. She was discharged last admission on 4 L. The patient is still requiring 6 L of oxygen supplementation and has been compliant with BiPAP at night. Nursing staff reports she complains of shortness of breath with minimal exertion. She has been seen in consultation by cardiology who is recommending cardiac catheterization. Pulmonology was consulted for assistance with dyspnea and increased oxygen requirements. Initial vitals BP 134/73, pulse 106, RR 30, 100.1 ?F, and 99% on nonrebreather. Chest x-ray 10/19 showed patchy stable opacities in both lungs, questionable edema versus infection. There are stable small bilateral pleural effusions. Cardiomegaly. ABG revealed PCO2 of 53, PO2 81, base excess of 12 on 6 L of oxygen. Initial blood work showed no leukocytosis, hemoglobin stable at 8.8 with chronic anemia. INR was 1.3. Chemistry remarkable for sodium of 149 which is also chronically elevated. Chloride was 108, serum bicarb 35, BUN 32, and creatinine 1.50. BNP was elevated at 1946. Troponin peaked at 4.790. Albumin low at 2.6. Urinalysis was positive for protein and 25 leukocytes, nitrates were negative but had 1+ bacteria. Urine culture showed no growth. Urine strep/Legionella antigens were negative. Blood cultures from 10/19 are pending. Influenza screening negative. Repeat chest x-ray on 10/20 showed worsening probable CHF, blunting of both costophrenic angles. Repeat echocardiogram showed mildly dilated left ventricle, moderate concentric LVH, estimated EF of 45%, mild to moderate segmental systolic dysfunction, moderately enlarged left atrium, moderate eccentric MVI, moderate pulmonary hypertension with an RVSP estimated at 59 mmHg (July 2017 was 46 mmHg). Patient does not follow with a senior infrastructure architect. She has never had any pulmonary function tests. She states she had a prior polysomnogram at [facility], however these records are not available. She does report compliance with her CPAP with nasal pillow at home. Her primary care physician manages her sleep apnea. Patient denies any hemoptysis, weight loss, night sweats. She does have shortness of breath with exertion at baseline. Her mobility has been declining over the last year or 2. Past Medical History Past Medical History (Chronic Problems): Chronic Problems (Last Reviewed 10/17/17 @ 01:46 by Campos Aquino DO) Anemia (Chronic) Chronic renal failure, stage 3 (moderate) (Chronic) Type 2 diabetes mellitus (Chronic) Poor dental hygiene (Chronic) History of coronary artery bypass graft (Chronic) Chronic hypoxemic respiratory failure (Chronic) Afib (Chronic) Gastric ulcer (Chronic) Colon polyps (Chronic) CAD (coronary artery disease) (Chronic) Medical History: Medical History (Last Reviewed 10/17/17 @ 01:46 by Campos Aquino DO) Colon polyps (Chronic) CAD (coronary artery disease) (Chronic) I25.10 Allergies LEANDER Inhibitors Allergy (Verified 10/16/17 22:39) Unknown Home Medications: Ambulatory Orders Medication Instructions Recorded Atorvastatin Calcium [Lipitor] 40 mg PO QHS 04/19/17 Calcium Carbonate/Vitamin D3 1 each PO BID 04/19/17 [Calcium 500-Vit D3 600 Tablet] Insulin Detemir [Levemir] 30 unit SQ BID 04/19/17 Isosorbide Mononitrate [Imdur] 30 mg PO DAILY 04/19/17 Mirtazapine [Remeron] 15 mg PO QHS 04/19/17 Multivitamin [Daily Multiple 1 each PO DAILY 04/19/17 Vitamin] Omeprazole 40 mg PO DAILY 04/19/17 Acetaminophen [Tylenol Tablet] 650 mg PO Q6H PRN PRN tablet 08/13/17 Metoprolol Tartrate [Lopressor 12.5 mg PO BID #60 tab 08/13/17 (beta joan)] Hydralazine HCl 50 mg PO 4X/DAY #90 tab 09/27/17 Nystatin Powder [Mycostatin Powder] 1 applic TOPICAL BID bottle 09/27/17 Furosemide 40 mg PO BID #60 tab 10/18/17 Surgical History: coronary bypass surgery, - - appendectemy, cholecystectemy, tonsil and adenoids, cabg - she cannot having any stents Psychiatric History: Depression SENIOR BEHAVIORAL SCIENTIST History: No pertinent SENIOR BEHAVIORAL SCIENTIST history Lives: With Family Smoking Status: Never smoker Alcohol: None Drugs: None - *Family History Maternal History Items: No pertinent history Review of Systems Constitutional: Reports: Weakness, Weight Change, Fatigue. Denies: Anorexia, Chills, Fever, Night Sweats, Malaise Eyes: Denies: Vision Change HEENT: Reports: Hard of Hearing. Denies: Difficulty Swallowing, Nasal bleeding , Nasal Congestion, Post Nasal Drip, Sinus Congestion, Sinus Drainage, Sore Throat Cardiovascular: Reports: Edema, Orthopnea. Denies: Chest Pain, Chest Pressure, Chest Tightness, Light Headedness, Palpitations, Paroxysmal Noc. Dyspnea, Syncope Respiratory: Reports: Shortness of breath upon exertion. Denies: Cough, Hemoptysis, Shortness of breath at rest, Sputum production, Wheezing Gastrointestinal: Denies: Abdominal Pain, Constipation, Diarrhea, Dyspepsia, Hematemesis, Hematochezia, Nausea, Melena, Vomiting Genitourinary: Reports: Nocturia. Denies: Dysuria, Frequency, Hematuria, Retention Musculoskeletal: Denies: Muscle pain, Neck Pain, Shoulder Pain Skin: Denies: Rash, Wounds Neurological: Reports: Numbness, Tingling. Denies: Balance problems, Change in Speech, Confusion, Difficulty swallowing, Focal weakness, Tremor, Seizures Psychiatric: Denies: Anxiety, Depression Endocrine: Denies: Change in Body Habitus, Polydipsia, Polyuria Hematologic/ Lymphatic: Reports: Anemia, Easy Bruising, Easy Bleeding. Denies: Adenopathy, Hx of blood clot Patient Problems: Active and Suspected Problems (Last Reviewed 10/17/17 @ 01:46 by Campos Aquino DO) CAP (community acquired pneumonia) (Acute) NSTEMI (non-ST elevated myocardial infarction) (Acute) Acute on chronic respiratory failure with hypoxia and hypercapnia (Acute) Subjective: Patient was seen and examined. She denies any current shortness of breath, cough, or sputum production. Denies any chest pain. She does report she feels much better when wearing the BiPAP. She is somewhat dyspneic with conversation. Objective: Clinical Impression(s) from Imaging Studies Chest X-Ray 10/19/17 18:45 IMPRESSION: Stable exam. Electronically Signed: Guanako Beltran at 19:09 EDT Tel , Service support , Chest X-Ray 10/20/17 05:55 IMPRESSION: Progressive CHF as compared to prior study. Electronically Signed: Sergio Leon MD at 9:50 EDT Tel [phone], Service support , - Physical Exam General: Alert, Oriented x3, Cooperative, - - Mild conversational dyspnea. Poor hygiene HEENT: Atraumatic, PERRLA, Normocephalic Oral: No Gingival or Mucosal Lesions/ Ulcerations, Dry Mucosa, - - Poor dental hygiene Neck: Supple, No Nodes, Trachea Midline Lungs: No wheeze, Diminished, Rales, Rhonchi, - - Symmetric expansion, no dullness to percussion Cardiovascular: Normal S1, Normal S2, No murmurs, Irregular Rate, No rub noted, No Gallop Abdomen: Bowel Sounds Present, Soft, Non Tender, Obese Extremities: No clubbing, No cyanosis, No edema, No Calf Tenderness Skin: No rashes, No breakdown Musculoskeletal: No Tenderness to Palpation of Joints or Extremities Lymphatic: No Cervical, Supraclavicular, or Inguinal Adenopathy Neurological: Cranial nerves II-XII grossly intact, Neuro grossly intact, Motor Exam 5/5 strength throughout Psych/Mental Status: Appropriate Vital Signs Temp Pulse Resp BP Pulse Ox 97.8 F 70 20 H 131/55 H 96 10/21/17 10:35 10/21/17 11:00 10/21/17 10:35 10/21/17 10:35 10/21/17 10:35 Oxygen Flow Rate (L/min) 6 Oxygen Delivery Method Nasal Cannula Weight: 191 lb 12.835 oz Body Mass Index (BMI) 32.9 Intake and Output for Last 24 Hours 10/19/17 10/20/17 10/21/17 23:59 23:59 23:59 Intake Total 646 / 646 360 / 360 Output Total 775 / 775 900 / 900 Balance -129 / -129 -540 / -540 Microbiology Past 72 Hours 10/20/17 01:28 Influenza Types A,B Direct FA (SIXTO) - Final Mucosa - Nasopharyngeal Laboratory Tests Past 24 Hrs 10/21/17 10/21/17 10/21/17 04:47 04:47 04:47 WBC 8.5 RBC 3.36 L Hgb 8.2 L Hct 31.3 L MCV 93.2 MCH 24.4 L MCHC 26.2 L RDW 18.9 H RDW Differential 64.3 H Plt Count 249 MPV 10.5 Immature Gran % (Auto) 0.100 Neut % (Auto) 77.6 H Lymph % (Auto) 11.6 L [place] % (Auto) 8.4 Eos % (Auto) 1.9 Baso % (Auto) 0.4 Absolute Neuts (auto) 6.6 Absolute Lymphs (auto) 0.98 Total Counted Not Reportable PT 16.2 H INR 1.3 APTT 34.8 Specimen Type Sample Site pH Bicarbonate Actual POC Total CO2 Base Excess O2 Saturation ABG pCO2 ABG pO2 Skyler Test O2 Delivery Device Liter Flow Blood Gas Notified Whom Blood Gas Notified Time Sodium 155 H Potassium 4.4 Chloride 112 H Carbon Dioxide 36.0 H Anion Gap 7 BUN 50 H Creatinine 1.73 H Estim Creat Clear Calc 22.02 Est GFR (MDRD) Af Amer 36 L Est GFR (MDRD) Non-Af 30 L BUN/Creatinine Ratio 28.9 H Glucose 166 H Calcium 8.2 L 10/21/17 12:10 WBC RBC Hgb Hct MCV MCH MCHC RDW RDW Differential Plt Count MPV Immature Gran % (Auto) Neut % (Auto) Lymph % (Auto) [place] % (Auto) Eos % (Auto) Baso % (Auto) Absolute Neuts (auto) Absolute Lymphs (auto) Total Counted PT INR APTT Specimen Type ART Sample Site R Brachial pH 7.44 Bicarbonate Actual 35.9 H POC Total CO2 38 Base Excess 12 H O2 Saturation 96 ABG pCO2 53.0 H ABG pO2 81 Skyler Test POS O2 Delivery Device Nasal Can Liter Flow 6.0 Blood Gas Notified Whom HOSP Blood Gas Notified Time 1200 Sodium Potassium Chloride Carbon Dioxide Anion Gap BUN Creatinine Estim Creat Clear Calc Est GFR (MDRD) Af Amer Est GFR (MDRD) Non-Af BUN/Creatinine Ratio Glucose Calcium POC Glucose 10/21/17 10/21/17 10/20/17 11:52 06:36 22:21 POC Glucose 204 H 148 H 241 H 10/20/17 16:45 POC Glucose 207 H Assessment/Plan All Active Problems (Last Reviewed 10/17/17 @ 01:46 by Campos Aquino DO) CAP (community acquired pneumonia) (Acute) NSTEMI (non-ST elevated myocardial infarction) (Acute) Acute on chronic respiratory failure with hypoxia and hypercapnia (Acute) Acute on chronic combined systolic and diastolic heart failure (Acute) Acute kidney injury superimposed on chronic kidney disease (Resolved) Acute respiratory failure with hypoxia (Resolved) COPD exacerbation (Resolved) Chest pain (Resolved) Fall (Resolved) Hyperkalemia (Resolved) RECOMMENDATIONS 1. Wean oxygen supplementation to keep saturations 88-92%. 2. Encourage incentive spirometer 3. Increase activity as tolerated 4. Continue aerosols 5. Continue diuresis, monitor renal function- may need to decrease dose 6. Utilize BiPAP throughout the day with breaks as tolerated 7. Ambulatory pulse ox prior to discharge 8. Unclear when last sleep study was, patient would benefit from repeat polysomnogram as an outpatient 9. Patient can follow-up in the pulmonary clinic in 2 weeks at which time testing can be arranged IMPRESSIONS 1. Acute on chronic hypoxic and hypercarbic respiratory failure secondary to CHF exacerbation in the setting of elevated troponins Presented 10/19 with hypoxia requiring nonrebreather, elevated troponins, significant shortness of breath. Currently on 6 L of oxygen. BNP elevated at 1946. Responding well to diuresis. Remains on IV Lasix, which can be continued. Not suspicious for infectious etiology, patient remains afebrile with no leukocytosis. Lower extremity edema has improved, however patient remains on 6 L of oxygen. ABG showed CO2 retention with a base excess of 12. For now, would utilize BiPAP with breaks as tolerated. This may assist with fluid accumulation in the lungs and her shortness of breath. She does feel better when wearing BiPAP. Encourage incentive spirometer and increase activity as tolerated. Continue bronchodilators. Steroids and antibiotics likely not necessary, do not suspect COPD exacerbation but shortness of breath and respiratory failure more likely related to CHF. Cardiology following, plans for heart catheterization in the next day or 2. Given overall improvement in clinical picture, would likely be okay to decrease diuretics in setting of worsening renal function. 2. Non-STEMI As above. 3. History of A. fib/CAD/type 2 diabetes mellitus/CKD stage III/anemia Complicates care, management, recovery, and prognosis. Continue home medications as indicated. Thank you for the opportunity to participate in this patient's care, please do not hesitate contact us with any further questions or concerns. This note was generated with [employer] dictation software. It may contain incorrect words, spelling, and punctuation that were not noted in checking the note before signing.
--- NOTE | 2017-10-21 12:31 | PN_ITS ---
Patient Problems: Active and Suspected Problems (Last Reviewed 10/17/17 @ 01:46 by Campos Aquino DO) CAP (community acquired pneumonia) (Acute) NSTEMI (non-ST elevated myocardial infarction) (Acute) Subjective: Patient seen and examined. She remains short of breath and looks like it is actually worsened, with oxygen level not been up to 6 L. Patient is still unable to complete sentences due to shortness of breath. She denies any fever or chills, any cough, any chest pain, abdominal pain, any diarrhea vomiting. Review of systems otherwise negative. Vitals/I&O's: Vital Signs Temp Pulse Resp BP Pulse Ox 97.8 F 70 20 H 131/55 H 96 10/21/17 10:35 10/21/17 11:00 10/21/17 10:35 10/21/17 10:35 10/21/17 10:35 Oxygen Flow Rate (L/min) 6 Oxygen Delivery Method Nasal Cannula Weight: 191 lb 12.835 oz Body Mass Index (BMI) 32.9 Intake and Output for Last 24 Hours 10/19/17 10/20/17 10/21/17 23:59 23:59 23:59 Intake Total 646 / 646 360 / 360 Output Total 775 / 775 900 / 900 Balance -129 / -129 -540 / -540 General: Alert, Oriented x3, Cooperative, - - moderate respiratory distress HEENT: Atraumatic, PERRLA, EOMI, Normocephalic Oral: Moist Mucosa Neck: Supple, No JVD, Negative Carotid Bruits Lungs: - - has coarse crackles in all lung johnson bilaterally Cardiovascular: Regular rate, Regular Rhythm, Normal S1, Normal S2, No murmurs Abdomen: Bowel Sounds Present, Soft, Non Tender, Non-Distended, No Hepato- splenomegaly Extremities: No clubbing, No cyanosis, No edema, Capillary Refill Less than 3 Seconds Skin: No rashes, No breakdown Musculoskeletal: No Tenderness to Palpation of Joints or Extremities Lymphatic: No Cervical, Supraclavicular, or Inguinal Adenopathy Neurological: Cranial nerves II-XII grossly intact Psych/Mental Status: Normal Affect, Appropriate, Alert and oriented to time, place, person, mood and affect Microbiology Past 72 Hours 10/20/17 01:28 Mucosa - Nasopharyngeal Influenza Types A,B Direct FA (SIXTO) - Final Laboratory Results 10/20/17 16:45: POC Glucose 207 H 10/20/17 22:21: POC Glucose 241 H 10/21/17 04:47: WBC 8.5, RBC 3.36 L, Hgb 8.2 L, Hct 31.3 L, MCV 93.2, MCH 24.4 L , MCHC 26.2 L, RDW 18.9 H, RDW Differential 64.3 H, Plt Count 249, MPV 10.5, Immature Gran % (Auto) 0.100, Neut % (Auto) 77.6 H, Lymph % (Auto) 11.6 L, [place] % (Auto) 8.4, Eos % (Auto) 1.9, Baso % (Auto) 0.4, Absolute Neuts (auto) 6.6, Absolute Lymphs (auto) 0.98, Total Counted Not Reportable 10/21/17 04:47: Sodium 155 H, Potassium 4.4, Chloride 112 H, Carbon Dioxide 36.0 H, Anion Gap 7, BUN 50 H, Creatinine 1.73 H, Estim Creat Clear Calc 22.02, Est GFR (MDRD) Af Amer 36 L, Est GFR (MDRD) Non-Af 30 L, BUN/Creatinine Ratio 28.9 H, Glucose 166 H, Calcium 8.2 L 10/21/17 04:47: PT 16.2 H, INR 1.3, APTT 34.8 10/21/17 06:36: POC Glucose 148 H 10/21/17 11:52: POC Glucose 204 H 10/21/17 12:10: Specimen Type ART, Sample Site R Brachial, pH 7.44, Bicarbonate Actual 35.9 H, POC Total CO2 38, Base Excess 12 H, O2 Saturation 96, ABG pCO2 53.0 H, ABG pO2 81, Skyler Test POS, O2 Delivery Device Nasal Can, Liter Flow 6.0 , Blood Gas Notified Whom HOSP , Blood Gas Notified Time 1200 Current Medications Acetaminophen (Tylenol) 650 mg PO Q6H PRN PRN PRN Reason: Mild Pain (scale 0-3)/T>100.7 Albuterol/Ipratropium (Duoneb) 3 ml INHALATION Q4H.RT PRN PRN Reason: Wheezing Amlodipine Besylate (Norvasc) 5 mg PO DAILY KAITLYNN Last Admin: 10/21/17 06:29 Dose: 5 mg Aspirin (Ecotrin) 81 mg PO DAILY@0800 [facility] Last Admin: 10/21/17 06:29 Dose: 81 mg Atorvastatin Calcium (Lipitor) 40 mg PO QHS [facility] Last Admin: 10/20/17 22:18 Dose: 40 mg Calcium/Vitamin D ([place] 500mg + D) 1 tablet PO BID [facility] Last Admin: 10/21/17 08:46 Dose: 1 tablet Clopidogrel Bisulfate (Plavix) 75 mg PO DAILY [facility] Last Admin: 10/21/17 06:29 Dose: 75 mg Furosemide (Lasix) 40 mg IV BID@1000,1800 [facility] Last Admin: 10/21/17 08:46 Dose: 40 mg Sodium Chloride () 1,000 mls @ 15 mls/hr IV .Q48H [facility] PRN Reason: KVO Last Admin: 10/21/17 06:29 Dose: 15 mls/hr Insulin Glargine (Lantus (Bkc)) 30 units SC BID [facility] Last Admin: 10/21/17 08:47 Dose: 30 units Isosorbide Mononitrate (Imdur) 30 mg PO DAILY [facility] Last Admin: 10/21/17 06:30 Dose: 30 mg Magnesium Hydroxide (Milk Of Magnesia) 30 ml PO DAILY PRN PRN PRN Reason: Constipation Metoprolol Tartrate (Lopressor (Beta Rah)) 25 mg PO BID [facility] Last Admin: 10/21/17 08:46 Dose: 25 mg Mirtazapine (Remeron) 15 mg PO QHS [facility] Last Admin: 10/20/17 22:18 Dose: 15 mg Multivitamins (Multivitamin) 1 tablet PO DAILY@0800 [facility] Last Admin: 10/21/17 08:46 Dose: 1 tablet Pantoprazole Sodium (Protonix) 40 mg PO DAILY [facility] Last Admin: 10/21/17 08:46 Dose: 40 mg Sodium Chloride () 5 - 30 ml IV UD PRN PRN Reason: SALINE FLUSH Last Admin: 10/21/17 08:53 Dose: 10 ml Medical Necessity - Tobacco Use Smoking Status: Never smoker Assessment/Plan All Active Problems (Last Reviewed 10/17/17 @ 01:46 by Campos Aquino DO) Type 2 diabetes mellitus (Acute) CAP (community acquired pneumonia) (Acute) NSTEMI (non-ST elevated myocardial infarction) (Acute) Acute on chronic combined systolic and diastolic heart failure (Acute) Acute kidney injury superimposed on chronic kidney disease (Resolved) Acute respiratory failure with hypoxia (Resolved) COPD exacerbation (Resolved) Chest pain (Resolved) Fall (Resolved) Hyperkalemia (Resolved) 82-year-old female admitted with a complaint of shortness of breath. Been managed for CHF exacerbation and NSTEMI. 1. Acute exacerbation of CHF * SOB is worsening, and she is now on 6L of oxygen by nasal canula * made 775mls of urine over last 24 hours,a nd has made 900mls so far today. In negative balance by 129mls over last 24 hours. * on IV lasix 40mg bid * Echo done (10/20/17): * cardiology on board * fluid restriction to 1500cc daily * Echo showed mildly dilated left ventricle with moderate concentric left ventricular hypertrophy and estimated EF of 45%. Severely hypokinetic apex with hypokinetic inferobasal wall and hypokinetic septal apex. Rest of wall segments are normal. Anterior apex is also hypokinetic. Moderately enlarged left atrium. Pulmonary artery systolic pressure is 59 mmHg indicating moderate pulmonary hypertension. Compared to previous the findings are not completely changed. * Patient was due to have cardiac cath today but this was deferred due to concern that she will be able to lie down flat during procedure. * 2. NSTEMI * Troponin was 4.58 on admission and went up to 4.79 and trended slightly down to 4.39 * EKG showed no acute ST changes. * remains on heparin drip; on aspirin, plavix and beta blockers * cardiac cath deferred today, as explained above in 1. * 3. AFib: rate controlled. Currently on heparin drip 4. Acute on chronic hypoxic and hypercapnic respiratory failure due to CHF exacerbation * /Requirement is 2 L of oxygen. Now up to 6 L of oxygen in the hospital. Lungs are full of crackles bilaterally. * ABG done today showed pH of 7.44 with PO2 of 81, PCO2 of 53. * Will benefit from BiPAP due to CO2 retention will also help with CHF. * pulmo consult placed * * 5. Hypertension: * stable. 6. Hypernatremia: worsening. Na is now 155; has chronic hypernatremia, but it is worsening. WIll get nephrology consult. I think this is likely due to fluid and salt retention with the inadequate diuresis. 7. CKD 3: Cr is 1.7 today. baseline is 1.4-1.6. Will monitor. Nephro consult placed. 8. Diabetes mellitus: on lantus 30IU bid. Accuchecks ACHS. ISS 9. DVT prophylaxis: on heparin drip This note was generated with [employer] dictation software. It may contain incorrect words, spelling, and punctuation that were not noted in checking the note before signing. Code Visit Inpatient E&M: 18182 Subs Hosp L3
--- NOTE | 2017-10-21 14:49 | CASEMGMT ---
Physician feels patient may need placement. SW is familiar with patient and her granddaughter. Patient's granddaughter is her caregiver. She is usually against patient going to SNF. Patient does have aides twice a week through [employer] and she goes to [facility] SW did attempt to call patient's granddaughter, but her voice mail was full. SW to attempt to reach granddaughter again. Nikki LEDESMA MSW
--- NOTE | 2017-10-21 15:29 | CON.PCM_ITS ---
Consultation - Renal 10/21/17 PCP/ Referring MD: Requesting physician: Dr Taveras Primary care physician: Eliot Loja Reason for Consultation:: LANDRY, hypernatremia - History of Present Illness History of Present Illness: The patient is a 82 year old female with PMH for coronary artery disease, chronic respiratory failure due to CHF on home oxygen 2 L, CHF, DM2, chronic kidney disease, and HTN was admitted on 10/19/2017 with a complaints of shortness of breath. She was discharged to home on 10/18 after treated for same complaints with acute CHF/COPD exacerbation. She had another admission in September. Currently she remains dyspneic up to chair. She has been steadily declining in health past several months with dyspnea with minimal exertion. She requires a walker for ambulation device. She denied recent falls. She denies chest pain, dizziness , or syncope. She has no nausea, vomiting or diarrhea but appetite is poor. She is treated for NSTEMI with positive troponin levels with possible heart cath and cardiology consult. Pulmonary on consult. Her baseline creatinine appears to be at 1.2 from 10/18/17. Creatinine has been as high as 2.5 during September admission. Creatinine on admit was 1.5 progressed to 1.73 on lasix for CHF. BNP was 1946 but she has pulmonary hypertension. She had no recent iv contrast studies. Sodium level elevated at 149 to 155 today. No iv fluids given due to dyspnea, CHF found on CXR. She has severely dry mucus membranes on exam. She has a moist cough but nonproductive. Echo from 10/20 showed LVEF 45% with LVH. She has moderate pulmonary hypertension PAP 59 with LAE, moderate 2+ MR and TR and dilated RV. CTA in 2015 was negative for PE. - Allergies Allergies: Allergies LEANDER Inhibitors Allergy (Verified 10/16/17 22:39) Unknown - Current Medications Current Medications: Current Medications Acetaminophen (Tylenol) 650 mg PO Q6H PRN PRN PRN Reason: Mild Pain (scale 0-3)/T>100.7 Albuterol/Ipratropium (Duoneb) 3 ml INHALATION Q4H.RT PRN PRN Reason: Wheezing Amlodipine Besylate (Norvasc) 5 mg PO DAILY [facility] Last Admin: 10/21/17 06:29 Dose: 5 mg Aspirin (Ecotrin) 81 mg PO DAILY@0800 [facility] Last Admin: 10/21/17 06:29 Dose: 81 mg Atorvastatin Calcium (Lipitor) 40 mg PO QHS [facility] Last Admin: 10/20/17 22:18 Dose: 40 mg Calcium/Vitamin D (Os-West 500mg + D) 1 tablet PO BID [facility] Last Admin: 10/21/17 08:46 Dose: 1 tablet Clopidogrel Bisulfate (Plavix) 75 mg PO DAILY [facility] Last Admin: 10/21/17 06:29 Dose: 75 mg Furosemide (Lasix) 40 mg IV BID@1000,1800 [facility] Last Admin: 10/21/17 08:46 Dose: 40 mg Sodium Chloride () 1,000 mls @ 15 mls/hr IV .Q48H [facility] PRN Reason: KVO Last Admin: 10/21/17 06:29 Dose: 15 mls/hr Insulin Glargine (Lantus (Bkc)) 30 units SC BID [facility] Last Admin: 10/21/17 08:47 Dose: 30 units Isosorbide Mononitrate (Imdur) 30 mg PO DAILY [facility] Last Admin: 10/21/17 06:30 Dose: 30 mg Magnesium Hydroxide (Milk Of Magnesia) 30 ml PO DAILY PRN PRN PRN Reason: Constipation Metoprolol Tartrate (Lopressor (Beta Rah)) 25 mg PO BID [facility] Last Admin: 10/21/17 08:46 Dose: 25 mg Mirtazapine (Remeron) 15 mg PO QHS [facility] Last Admin: 10/20/17 22:18 Dose: 15 mg Multivitamins (Multivitamin) 1 tablet PO DAILY@0800 [facility] Last Admin: 10/21/17 08:46 Dose: 1 tablet Pantoprazole Sodium (Protonix) 40 mg PO DAILY [facility] Last Admin: 10/21/17 08:46 Dose: 40 mg Sodium Chloride () 5 - 30 ml IV UD PRN PRN Reason: SALINE FLUSH Last Admin: 10/21/17 08:53 Dose: 10 ml - Past Medical History Past Medical History (Chronic Problems): Chronic Problems (Last Reviewed 10/17/17 @ 01:46 by Campos Aquino DO) Anemia (Chronic) Chronic renal failure, stage 3 (moderate) (Chronic) Type 2 diabetes mellitus (Chronic) Poor dental hygiene (Chronic) History of coronary artery bypass graft (Chronic) Chronic hypoxemic respiratory failure (Chronic) Afib (Chronic) Gastric ulcer (Chronic) Colon polyps (Chronic) CAD (coronary artery disease) (Chronic) - Past Surgical History Surgical History: coronary bypass surgery, - - appendectemy, cholecystectemy, tonsil and adenoids, cabg - she cannot having any stents - Social History Smoking Status: Never smoker Alcohol: None Drugs: None - Family History Maternal History Items: No pertinent history Review of Systems Constitutional: Reports: Anorexia, Weakness, Fatigue. Denies: Chills, Fever HEENT: Denies: Head Aches Cardiovascular: Denies: Chest Pain, Edema, Palpitations, Syncope Respiratory: Reports: Cough, Shortness of Breath, Shortness of breath upon exertion Gastrointestinal: Denies: Abdominal Pain, Diarrhea, Nausea, Vomiting Genitourinary: Denies: Dysuria, Frequency, Hesitancy Skin: Denies: Rash Neurological: Reports: Balance problems, - - generalized weakness, requires walker for assistive device Psychiatric: Denies: Anxiety, Depression Hematologic/ Lymphatic: Reports: Anemia. Denies: Hx of blood clot Patient Problems: Active and Suspected Problems (Last Reviewed 10/17/17 @ 01:46 by Campos Aquino DO) CAP (community acquired pneumonia) (Acute) NSTEMI (non-ST elevated myocardial infarction) (Acute) Acute on chronic respiratory failure with hypoxia and hypercapnia (Acute) - Physical Exam General: Alert, Oriented x3, Cooperative, - - mild dyspnea at rest, limited historian Oral: Dry Mucosa, - - parched lips, mouth Neck: Supple, No JVD Lungs: Rales Cardiovascular: Irregular Rate, Murmur Abdomen: Bowel Sounds Present, Soft, Non Tender, Non-Distended Extremities: No edema Skin: - - hyperpigmentation Musculoskeletal: Cachexia, Muscle Wasting Psych/Mental Status: Normal Affect, - - limited historian Vital Signs Temp Pulse Resp BP Pulse Ox 97.8 F 77 20 H 131/55 H 96 10/21/17 10:35 10/21/17 14:07 10/21/17 10:35 10/21/17 10:35 10/21/17 10:35 Oxygen Flow Rate (L/min) 6 Oxygen Delivery Method Nasal Cannula Weight: 87 kg Body Mass Index (BMI) 32.9 Intake and Output for Last 24 Hours 10/19/17 10/20/17 10/21/17 23:59 23:59 23:59 Intake Total 646 / 646 360 / 360 Output Total 775 / 775 900 / 900 Balance -129 / -129 -540 / -540 Microbiology Past 72 Hours 10/20/17 01:28 Influenza Types A,B Direct FA (SIXTO) - Final Mucosa - Nasopharyngeal Laboratory Tests Past 24 Hrs 10/21/17 10/21/17 10/21/17 04:47 04:47 04:47 WBC 8.5 RBC 3.36 L Hgb 8.2 L Hct 31.3 L MCV 93.2 MCH 24.4 L MCHC 26.2 L RDW 18.9 H RDW Differential 64.3 H Plt Count 249 MPV 10.5 Immature Gran % (Auto) 0.100 Neut % (Auto) 77.6 H Lymph % (Auto) 11.6 L [place] % (Auto) 8.4 Eos % (Auto) 1.9 Baso % (Auto) 0.4 Absolute Neuts (auto) 6.6 Absolute Lymphs (auto) 0.98 Total Counted Not Reportable PT 16.2 H INR 1.3 APTT 34.8 Specimen Type Sample Site pH Bicarbonate Actual POC Total CO2 Base Excess O2 Saturation ABG pCO2 ABG pO2 Skyler Test O2 Delivery Device Liter Flow Blood Gas Notified Whom Blood Gas Notified Time Sodium 155 H Potassium 4.4 Chloride 112 H Carbon Dioxide 36.0 H Anion Gap 7 BUN 50 H Creatinine 1.73 H Estim Creat Clear Calc 22.02 Est GFR (MDRD) Af Amer 36 L Est GFR (MDRD) Non-Af 30 L BUN/Creatinine Ratio 28.9 H Glucose 166 H Calcium 8.2 L 10/21/17 12:10 WBC RBC Hgb Hct MCV MCH MCHC RDW RDW Differential Plt Count MPV Immature Gran % (Auto) Neut % (Auto) Lymph % (Auto) [place] % (Auto) Eos % (Auto) Baso % (Auto) Absolute Neuts (auto) Absolute Lymphs (auto) Total Counted PT INR APTT Specimen Type ART Sample Site R Brachial pH 7.44 Bicarbonate Actual 35.9 H POC Total CO2 38 Base Excess 12 H O2 Saturation 96 ABG pCO2 53.0 H ABG pO2 81 Skyler Test POS O2 Delivery Device Nasal Can Liter Flow 6.0 Blood Gas Notified Whom HOSP Blood Gas Notified Time 1200 Sodium Potassium Chloride Carbon Dioxide Anion Gap BUN Creatinine Estim Creat Clear Calc Est GFR (MDRD) Af Amer Est GFR (MDRD) Non-Af BUN/Creatinine Ratio Glucose Calcium POC Glucose 10/21/17 10/21/17 10/20/17 11:52 06:36 22:21 POC Glucose 204 H 148 H 241 H 10/20/17 16:45 POC Glucose 207 H Clinical Impression(s) from Imaging Studies Chest X-Ray 10/20/17 05:55 IMPRESSION: Progressive CHF as compared to prior study. Electronically Signed: Sergio Leon MD at 9:50 EDT Tel [phone], Service support , Assessment/Plan All Active Problems (Last Reviewed 10/17/17 @ 01:46 by Campos Aquino DO) CAP (community acquired pneumonia) (Acute) NSTEMI (non-ST elevated myocardial infarction) (Acute) Acute on chronic respiratory failure with hypoxia and hypercapnia (Acute) Acute on chronic combined systolic and diastolic heart failure (Acute) Acute kidney injury superimposed on chronic kidney disease (Resolved) Acute respiratory failure with hypoxia (Resolved) COPD exacerbation (Resolved) Chest pain (Resolved) Fall (Resolved) Hyperkalemia (Resolved) 1. LANDRY on CKD stage 3. baseline creatinine 1.2 eGFR 45cc/min on 10/18 now at 1.73 on lasix iv likely contributing to rise in creatinine. No recent iv contrast exposure. Suggest decrease dose of lasix to daily. Plans for heart cath to evaluate for cardiac ischemia. Pt at risk for contrast nephropathy with decline in renal fxn, appears dry clinically despite CXR findings and Exam with bibasilar crackles which may be from her COPD. Pulmonary hypertension may be contributing to edema and shortness of breath with moderate TR and MR. 2. Hypernatremia due to free water deficit. Would recommend D5W gentle hydration. 3. COPD pulmonary following. 4. CAD with NSTEMI +troponins. Cardiology following. 5. DM2 primary mgmt, stable
[2017-10-21] MEDS: Atorvastatin Calcium 40 MG Tablet PO (22:36)
[2017-10-21] MEDS: Mirtazapine 15 MG Tablet PO (22:36)
[2017-10-21 23:00] LABS: Bedside Glucose 95 mg/dL (70-110)
[2017-10-22] VITALS (24 sets, daily range): BP systolic 109–142; BP diastolic 46–59; PULSE 55–75; RESP 12–24; TEMP 36.4–37.1; O2SAT 58–98
--- NOTE | 2017-10-22 05:55 | EKG12_ITS ---
Test Reason : AM EKG Blood Pressure : / mmHG Vent. Rate : 064 BPM Atrial Rate : 241 BPM P-R Int : 000 ms QRS Dur : 124 ms QT Int : 454 ms P-R-T Axes : 000 012 150 degrees QTc Int : 468 ms Atrial fibrillation Right bundle branch block T wave abnormality, consider lateral ischemia Abnormal ECG When compared with ECG of 21-OCT-2017 05:26, MANUAL COMPARISON REQUIRED, DATA IS UNCONFIRMED Confirmed by LINDY STOVALL, JENNIFER ([id number]), development editor STEFANIA WILDER ([id number]) on 10/27/2017 2:13:16 PM Referred By: ORLAIA Confirmed By:JENNIFER ISRAEL MD
[2017-10-22 06:04] LABS: Absolute Lymphocyte Count 0.92 X10^3/ul (0.83-4.51); Absolute Neutrophil Count 6.1 X10^3/uL (2.0-7.7); Basophil# 0.04 X10^3/uL; Basophil% 0.5 % (0-1); Eosinophil# 0.23 X10^3/uL; Eosinophils% 2.9 % (0-5); Hematocrit 31.2 % (37-47); Hemoglobin 8.1 g/dl (12.0-15.0); Lymphocyte # 0.92 X10^3/ul (4.0); Lymphocyte % 11.8 % (19-41); Mean Corpuscular Hgb 24.6 pg (27.0-32.0); Mean Corpuscular Volume 94.8 fL (81-99); Mean Platelet Vol. 10.9 fl (6.2-12.0); Monocyte# 0.56 X10^3/uL; Monocyte% 7.2 % (0-10); Neutrophil # 6.06 X10^3/uL (2.7-7.7); Neutrophil % 77.5 % (47-70); Platelet Count 218 K/mm3 (150-450); RBC Distribution Width CV 18.3 % (11.6-14.6); RBC Distribution Width SD 60.3 fl (35.1-43.9); Red Blood Count 3.29 M/mm3 (4.2-5.4); White Blood Count 7.8 K/mm3 (4.4-11.0)
[2017-10-22 06:09] LABS: International Normalized Ratio 1.3; POSITIVE COUNT NO; POSITIVE DIFFERENTIAL NO; POSITIVE MORPHOLOGY NO; Prothrombin Time (Protime)PT. 16.2 SECONDS (11.7-14.9)
[2017-10-22 06:28] LABS: Partial Thromboplast Time 29.9 Seconds (24.1-36.2)
[2017-10-22] MEDS: Metoprolol Tartrate 25 MG Tablet PO ×2 (06:29→22:47)
[2017-10-22] MEDS: Clopidogrel Bisulfate 75 MG Tablet PO (06:29)
[2017-10-22] MEDS: Aspirin E.C. 81 MG Tablet PO (06:29)
[2017-10-22] MEDS: Isosorbide Mononitrate 30 MG Tablet PO (06:32)
[2017-10-22] MEDS: amLODIPine 5 MG Tablet PO (06:32)
[2017-10-22 06:47] LABS: Anion Gap 3 (5-15); BUN 36 mg/dL (7-18); BUN/Creat Ratio 25.5 RATIO (10-20); Chloride 111 mmol/L (98-107); Creatinine, Serum 1.41 mg/dL (0.55-1.02); EST Glomerular Filtration Rate 38 mL/min (>60); Est Glom Filt Rate - Afr Amer 46 mL/min (>60); Estimated Creatinine Clearance 27.02 ml/min; Glucose 109 mg/dL (74-106); Potassium 3.9 mmol/L (3.5-5.1); Sodium Level 149 mmol/L (136-145)
[2017-10-22 07:00] LABS: Bedside Glucose 119 mg/dL (70-110)
--- NOTE | 2017-10-22 08:27 | PCM.PN.CARD ---
Subjectve: Patient seen and evaluated. Objective: Vital Signs Temp Pulse Resp BP Pulse Ox 98.0 F 64 20 H 142/49 H 94 10/22/17 06:25 10/22/17 07:10 10/22/17 06:25 10/22/17 06:29 10/22/17 06:25 Oxygen Flow Rate (L/min) 6 Oxygen Delivery Method Bi-pap Weight: 195 lb 15.855 oz Body Mass Index (BMI) 32.9 Intake and Output for Last 24 Hours 10/20/17 10/21/17 10/22/17 23:59 23:59 23:59 Intake Total 646 / 646 1361.3 / 1361.3 315 / 315 Output Total 775 / 775 1900 / 1900 200 / 200 Balance -129 / -129 -538.7 / -538.7 115 / 115 General: Awake, Alert, Oriented x 3, Ill Appearing HEENT: PERRL, EOMI, Sclera Non Icteric Neck: Supple, Good ROM, No Lymph Node Enlargement Lungs: Clear to auscultation Cardiovascular: Regular Rhythm, Normal S1, Normal S2, No Murmurs, No Rubs, No Gallops Vascular: No Carotid Bruits, Normal Femoral Pulses, Normal Radial Pulses, Normal Dorsalis Pedal Pulse, Normal Posterior Tibial Pulses Abdomen: Bowel Sounds Present, Soft, Non Tender, No HSM, No Organomegaly Extremities: No Cyanosis, No Clubbing, No edema Neurological: No Focal Motor or Sensory Deficit 10/21/17 12:10: pH 7.44, Bicarbonate Actual 35.9 H, POC Total CO2 38, Base Excess 12 H, O2 Saturation 96, ABG pCO2 53.0 H, ABG pO2 81, Skyler Test POS 10/22/17 05:30: WBC 7.8, RBC 3.29 L, Hgb 8.1 L, Hct 31.2 L, MCV 94.8, MCH 24.6 L, MCHC 26.0 L, RDW 18.3 H, RDW Differential 60.3 H, Plt Count 218, MPV 10.9, Immature Gran % (Auto) 0.100, Neut % (Auto) 77.5 H, Lymph % (Auto) 11.8 L, [place] % (Auto) 7.2, Eos % (Auto) 2.9, Baso % (Auto) 0.5, Absolute Neuts (auto) 6.1, Total Counted Not Reportable 10/22/17 05:30: PT 16.2 H, INR 1.3, APTT 29.9 10/22/17 05:30: Sodium 149 H, Potassium 3.9, Chloride 111 H, Carbon Dioxide 35.0 H, Anion Gap 3 L, BUN 36 H, Creatinine 1.41 H, Est GFR (MDRD) Af Amer 46 L, Est GFR (MDRD) Non-Af 38 L, BUN/Creatinine Ratio 25.5 H, Glucose 109 H, Calcium 8.0 L Rhythm: EKG: ECHO: Stress Test: Cardiac Cath: PCI: CT Surgery: Holter monitor: EPS: PPM: CXR: Chest CT Scan: Medical Necessity - Tobacco Use Smoking Status: Never smoker Assessment/Plan 1. Non-ST elevation myocardial infarction She presents with shortness of breath and now has a non-ST elevation myocardial infarction. At this point especially with her recurrent admissions it is felt that her coronary anatomy needs to be evaluated with a possible view to revascularization. We will attempt to perform the above within the next 24-48 hours depending in her status. 2. Acute congestive heart failure-diastolic She presents with shortness of breath and appears to be in congestive heart failure. She improves with diuresis. The above is likely secondary to a combination of coronary artery disease as well as her atrial fibrillation. Her echocardiogram demonstrates EF 45%-50%. This would obviate the need for a left ventriculogram after her heart catheterization. 3. Hypertension High blood pressure appears to be normal. 4. Paroxysmal atrial fibrillation. She does appear to have the above with a controlled ventricular response rate. At this time she will remain anticoagulated with the heparin or Lovenox and this will be discontinued at the appropriate time for her to undergo any invasive procedure. 5. Hyperlipidemia She will continue with aggressive risk factor modification. Thank you for allowing me to participate in the care of your patient. Please don't hesitate to call if any issues arise
--- NOTE | 2017-10-22 08:38 | PN.CARD_ITS ---
Subjectve: Patient seen and evaluated. Objective: Vital Signs Temp Pulse Resp BP Pulse Ox 98.0 F 64 20 H 142/49 H 94 10/22/17 06:25 10/22/17 07:10 10/22/17 06:25 10/22/17 06:29 10/22/17 06:25 Oxygen Flow Rate (L/min) 6 Oxygen Delivery Method Bi-pap Weight: 195 lb 15.855 oz Body Mass Index (BMI) 32.9 Intake and Output for Last 24 Hours 10/20/17 10/21/17 10/22/17 23:59 23:59 23:59 Intake Total 646 / 646 1361.3 / 1361.3 315 / 315 Output Total 775 / 775 1900 / 1900 200 / 200 Balance -129 / -129 -538.7 / -538.7 115 / 115 General: Awake, Alert, Oriented x 3, Ill Appearing HEENT: PERRL, EOMI, Sclera Non Icteric Neck: Supple, Good ROM, No Lymph Node Enlargement Lungs: Clear to auscultation Cardiovascular: Regular Rhythm, Normal S1, Normal S2, No Murmurs, No Rubs, No Gallops Vascular: No Carotid Bruits, Normal Femoral Pulses, Normal Radial Pulses, Normal Dorsalis Pedal Pulse, Normal Posterior Tibial Pulses Abdomen: Bowel Sounds Present, Soft, Non Tender, No HSM, No Organomegaly Extremities: No Cyanosis, No Clubbing, No edema Neurological: No Focal Motor or Sensory Deficit 10/21/17 12:10: pH 7.44, Bicarbonate Actual 35.9 H, POC Total CO2 38, Base Excess 12 H, O2 Saturation 96, ABG pCO2 53.0 H, ABG pO2 81, Skyler Test POS 10/22/17 05:30: WBC 7.8, RBC 3.29 L, Hgb 8.1 L, Hct 31.2 L, MCV 94.8, MCH 24.6 L , MCHC 26.0 L, RDW 18.3 H, RDW Differential 60.3 H, Plt Count 218, MPV 10.9, Immature Gran % (Auto) 0.100, Neut % (Auto) 77.5 H, Lymph % (Auto) 11.8 L, [place] % (Auto) 7.2, Eos % (Auto) 2.9, Baso % (Auto) 0.5, Absolute Neuts (auto) 6.1, Total Counted Not Reportable 10/22/17 05:30: PT 16.2 H, INR 1.3, APTT 29.9 10/22/17 05:30: Sodium 149 H, Potassium 3.9, Chloride 111 H, Carbon Dioxide 35.0 H, Anion Gap 3 L, BUN 36 H, Creatinine 1.41 H, Est GFR (MDRD) Af Amer 46 L , Est GFR (MDRD) Non-Af 38 L, BUN/Creatinine Ratio 25.5 H, Glucose 109 H, Calcium 8.0 L Rhythm: EKG: ECHO: Stress Test: Cardiac Cath: PCI: CT Surgery: Holter monitor: EPS: PPM: CXR: Chest CT Scan: Medical Necessity - Tobacco Use Smoking Status: Never smoker Assessment/Plan 1. Non-ST elevation myocardial infarction * She presents with shortness of breath and now has a non-ST elevation myocardial infarction. At this point especially with her recurrent admissions it is felt that her coronary anatomy needs to be evaluated with a possible view to revascularization. * We will attempt to perform the above within the next 24-48 hours depending in her status. * 2. Acute congestive heart failure-diastolic * She presents with shortness of breath and appears to be in congestive heart failure. She improves with diuresis. The above is likely secondary to a combination of coronary artery disease as well as her atrial fibrillation. * Her echocardiogram demonstrates EF 45%-50%. This would obviate the need for a left ventriculogram after her heart catheterization. * 3. Hypertension * High blood pressure appears to be normal. * 4. Paroxysmal atrial fibrillation. * She does appear to have the above with a controlled ventricular response rate. At this time she will remain anticoagulated with the heparin or Lovenox and this will be discontinued at the appropriate time for her to undergo any invasive procedure. * 5. Hyperlipidemia * She will continue with aggressive risk factor modification. * * Thank you for allowing me to participate in the care of your patient. Please don't hesitate to call if any issues arise
[2017-10-22] MEDS: Furosemide 40 MG/4 ML Vial IV ×2 (08:48→18:20)
[2017-10-22] MEDS: Calcium Carb/Vitamin D 1 TABLET Tablet PO ×2 (08:48→22:47)
[2017-10-22] MEDS: Multivitamins,Therapeutic Tablet 1 TABLET PO (08:48)
[2017-10-22] MEDS: Pantoprazole Sodium 40 MG Tablet PO (08:49)
[2017-10-22] MEDS: Metolazone 2.5 MG Tablet PO (08:49)
--- NOTE | 2017-10-22 11:15 | PN_ITS ---
Patient Problems: Active and Suspected Problems (Last Reviewed 10/17/17 @ 01:46 by Campos Aquino DO) CAP (community acquired pneumonia) (Acute) NSTEMI (non-ST elevated myocardial infarction) (Acute) Acute on chronic respiratory failure with hypoxia and hypercapnia (Acute) Subjective: Patient was seen and examined. She is lying in bed, does not appear to be in any acute distress. She is wearing her BiPAP and resting with her eyes closed. Nursing staff reports her FiO2 was increased from 45% to 55% last evening for hypoxia in the low 80s. She is able to lie flat while wearing BiPAP. Denies any shortness of breath or cough, however when took off BiPAP, she did have a coarse nonproductive cough. She had a lot of debris in her mouth which looked dry. She remains afebrile and hemodynamically stable. Objective: Recent lab and culture data reviewed. Urine culture with no growth. Strep/ Legionella antigens were negative. Blood cultures are pending from 10/19. Viral respiratory panel is negative. - Physical Exam General: Cooperative, No apparent distress, - - Awakened to voice, wearing BiPAP HEENT: Atraumatic, Normocephalic Oral: No Gingival or Mucosal Lesions/ Ulcerations, Dry Mucosa, - - Debris caked in mouth and on teeth Neck: Supple, Trachea Midline Lungs: No wheeze, Diminished, Rales, Rhonchi, - - Symmetric expansion. No tachypnea or accessory muscle use Cardiovascular: Normal S1, Normal S2, Irregular Rate, Murmur, No rub noted, No Gallop Abdomen: Bowel Sounds Present, Soft, Non Tender, Obese Extremities: No cyanosis, No edema Skin: - - No changes from previous Musculoskeletal: No Tenderness to Palpation of Joints or Extremities Lymphatic: No Cervical, Supraclavicular, or Inguinal Adenopathy Neurological: Neuro grossly intact Psych/Mental Status: - - Jose, awakens to voice. No distress, Cooperative Vital Signs Temp Pulse Resp BP Pulse Ox 98.0 F 64 20 H 142/49 H 94 10/22/17 06:25 10/22/17 07:10 10/22/17 06:25 10/22/17 06:29 10/22/17 06:25 Oxygen Flow Rate (L/min) 6 Oxygen Delivery Method Bi-pap Weight: 195 lb 15.855 oz Body Mass Index (BMI) 32.9 Intake and Output for Last 24 Hours 10/20/17 10/21/17 10/22/17 23:59 23:59 23:59 Intake Total 646 / 646 1361.3 / 1361.3 315 / 315 Output Total 775 / 775 1900 / 1900 200 / 200 Balance -129 / -129 -538.7 / -538.7 115 / 115 Microbiology Past 72 Hours 10/20/17 01:28 Influenza Types A,B Direct FA (SIXTO) - Final Mucosa - Nasopharyngeal Laboratory Tests Past 24 Hrs 10/21/17 10/22/17 10/22/17 12:10 05:30 05:30 WBC 7.8 RBC 3.29 L Hgb 8.1 L Hct 31.2 L MCV 94.8 MCH 24.6 L MCHC 26.0 L RDW 18.3 H RDW Differential 60.3 H Plt Count 218 MPV 10.9 Immature Gran % (Auto) 0.100 Neut % (Auto) 77.5 H Lymph % (Auto) 11.8 L [place] % (Auto) 7.2 Eos % (Auto) 2.9 Baso % (Auto) 0.5 Absolute Neuts (auto) 6.1 Absolute Lymphs (auto) 0.92 Total Counted Not Reportable PT 16.2 H INR 1.3 APTT 29.9 Specimen Type ART Sample Site R Brachial pH 7.44 Bicarbonate Actual 35.9 H POC Total CO2 38 Base Excess 12 H O2 Saturation 96 ABG pCO2 53.0 H ABG pO2 81 Skyler Test POS O2 Delivery Device Nasal Can Liter Flow 6.0 Blood Gas Notified Whom [facility] Blood Gas Notified Time 1200 Sodium Potassium Chloride Carbon Dioxide Anion Gap BUN Creatinine Estim Creat Clear Calc Est GFR (MDRD) Af Amer Est GFR (MDRD) Non-Af BUN/Creatinine Ratio Glucose Calcium 10/22/17 05:30 WBC RBC Hgb Hct MCV MCH MCHC RDW RDW Differential Plt Count MPV Immature Gran % (Auto) Neut % (Auto) Lymph % (Auto) [place] % (Auto) Eos % (Auto) Baso % (Auto) Absolute Neuts (auto) Absolute Lymphs (auto) Total Counted PT INR APTT Specimen Type Sample Site pH Bicarbonate Actual POC Total CO2 Base Excess O2 Saturation ABG pCO2 ABG pO2 Skyler Test O2 Delivery Device Liter Flow Blood Gas Notified Whom Blood Gas Notified Time Sodium 149 H Potassium 3.9 Chloride 111 H Carbon Dioxide 35.0 H Anion Gap 3 L BUN 36 H Creatinine 1.41 H Estim Creat Clear Calc 27.02 Est GFR (MDRD) Af Amer 46 L Est GFR (MDRD) Non-Af 38 L BUN/Creatinine Ratio 25.5 H Glucose 109 H Calcium 8.0 L POC Glucose 10/22/17 10/21/17 10/21/17 06:50 22:25 11:52 POC Glucose 119 H 95 204 H Medical Necessity - Tobacco Use Smoking Status: Never smoker Assessment/Plan All Active Problems (Last Reviewed 10/17/17 @ 01:46 by Campos Aquino DO) CAP (community acquired pneumonia) (Acute) NSTEMI (non-ST elevated myocardial infarction) (Acute) Acute on chronic respiratory failure with hypoxia and hypercapnia (Acute) Acute on chronic combined systolic and diastolic heart failure (Acute) Acute kidney injury superimposed on chronic kidney disease (Resolved) Acute respiratory failure with hypoxia (Resolved) COPD exacerbation (Resolved) Chest pain (Resolved) Fall (Resolved) Hyperkalemia (Resolved) RECOMMENDATIONS 1. Wean oxygen supplementation to keep saturations 88-92%. 2. Encourage incentive spirometer and increased activity as tolerated 3. Continue aerosols 5. Continue diuresis, monitor renal function- may need to decrease dose, especially with upcoming heart cath and dye load 6. Utilize BiPAP with breaks as tolerated 7. Ambulatory pulse ox prior to discharge 8. Unclear when last sleep study was, patient would benefit from repeat polysomnogram as an outpatient 9. Patient can follow-up in the pulmonary clinic in 2 weeks at which time testing can be arranged IMPRESSIONS 1. Acute on chronic hypoxic and hypercarbic respiratory failure secondary to CHF exacerbation in the setting of elevated troponins Presented 10/19 with hypoxia requiring NRB, elevated troponins, significant shortness of breath. BNP elevated at 1946. Responding well to diuresis. Not suspicious for infectious etiology, patient remains afebrile with no leukocytosis. Lower extremity edema has improved, however patient remains on 6 L of oxygen. ABG showed CO2 retention with a base excess of 12. For now, would utilize BiPAP with breaks as tolerated. This may assist with fluid accumulation in the lungs and her shortness of breath. She does feel better when wearing BiPAP and does not have orthopnea. Encourage incentive spirometer and increase activity as tolerated. Continue bronchodilators. Suspect shortness of breath and respiratory failure more likely related to CHF. Cardiology following, plans for heart catheterization in the next day or 2. Concern with kidneys over dye load with heart cath. Nephrology following. Again, would likely be okay to decrease diuretics in setting of worsening renal function and upcoming cath. 2. Non-STEMI As above. 3. History of A. fib/CAD/type 2 diabetes mellitus/CKD stage III/anemia Complicates care, management, recovery, and prognosis. Continue home medications as indicated. Thank you for the opportunity to participate in this patient's care, please do not hesitate contact us with any further questions or concerns. This note was generated with imgix dictation software. It may contain incorrect words, spelling, and punctuation that were not noted in checking the note before signing.
[2017-10-22 11:26] LABS: Bedside Glucose 120 mg/dL (70-110)
--- NOTE | 2017-10-22 12:17 | PCM.PN.HOSP ---
Patient Problems: Active and Suspected Problems (Last Reviewed 10/17/17 @ 01:46 by Campos Aquino DO) CAP (community acquired pneumonia) (Acute) NSTEMI (non-ST elevated myocardial infarction) (Acute) Acute on chronic respiratory failure with hypoxia and hypercapnia (Acute) Subjective: Patient seen and examined. She had no complaints and says her shortness of breath was better. However according to nurse, patient desaturated to the 80s also on the BiPAP overnight and FiO2 was increased from 45% to 55% as a result. She denied any chest pain or cough, any abdominal pain, any diarrhea vomiting. Review of systems otherwise negative. Vitals/I&O's: Vital Signs Temp Pulse Resp BP Pulse Ox 98.1 F 56 L 18 119/50 L 95 10/22/17 11:21 10/22/17 11:22 10/22/17 11:21 10/22/17 11:21 10/22/17 11:21 Oxygen Flow Rate (L/min) 6 Oxygen Delivery Method Bi-pap Weight: 195 lb 15.855 oz Body Mass Index (BMI) 32.9 Intake and Output for Last 24 Hours 10/20/17 10/21/17 10/22/17 23:59 23:59 23:59 Intake Total 646 / 646 1361.3 / 1361.3 355 / 355 Output Total 775 / 775 1900 / 1900 650 / 650 Balance -129 / -129 -538.7 / -538.7 -295 / -295 General: Alert, Oriented x3, Cooperative, - - Moderate respiratory distress HEENT: Atraumatic, PERRLA, EOMI, Normocephalic Oral: Moist Mucosa Neck: Supple, No JVD, Negative Carotid Bruits Lungs: - - Has coarse crackles in mid and lower lungs bilaterally. Cardiovascular: Regular rate, Regular Rhythm, Normal S1, Normal S2, No murmurs Abdomen: Bowel Sounds Present, Soft, Non Tender, Non-Distended, No Hepato-splenomegaly Extremities: No clubbing, No cyanosis, No edema, Capillary Refill Less than 3 Seconds Skin: No rashes, No breakdown Musculoskeletal: No Tenderness to Palpation of Joints or Extremities Lymphatic: No Cervical, Supraclavicular, or Inguinal Adenopathy Neurological: Cranial nerves II-XII grossly intact Psych/Mental Status: Normal Affect, Appropriate, Alert and oriented to time, place, person, mood and affect Microbiology Past 72 Hours 10/20/17 01:28 Mucosa - Nasopharyngeal Influenza Types A,B Direct FA (SIXTO) - Final Laboratory Results 10/21/17 22:25: POC Glucose 95 10/22/17 05:30: WBC 7.8, RBC 3.29 L, Hgb 8.1 L, Hct 31.2 L, MCV 94.8, MCH 24.6 L, MCHC 26.0 L, RDW 18.3 H, RDW Differential 60.3 H, Plt Count 218, MPV 10.9, Immature Gran % (Auto) 0.100, Neut % (Auto) 77.5 H, Lymph % (Auto) 11.8 L, Josephine % (Auto) 7.2, Eos % (Auto) 2.9, Baso % (Auto) 0.5, Absolute Neuts (auto) 6.1, Absolute Lymphs (auto) 0.92, Total Counted Not Reportable 10/22/17 05:30: PT 16.2 H, INR 1.3, APTT 29.9 10/22/17 05:30: Sodium 149 H, Potassium 3.9, Chloride 111 H, Carbon Dioxide 35.0 H, Anion Gap 3 L, BUN 36 H, Creatinine 1.41 H, Estim Creat Clear Calc 27.02, Est GFR (MDRD) Af Amer 46 L, Est GFR (MDRD) Non-Af 38 L, BUN/Creatinine Ratio 25.5 H, Glucose 109 H, Calcium 8.0 L 10/22/17 06:50: POC Glucose 119 H 10/22/17 11:19: POC Glucose 120 H Current Medications Acetaminophen (Tylenol) 650 mg PO Q6H PRN PRN PRN Reason: Mild Pain (scale 0-3)/T>100.7 Albuterol/Ipratropium (Duoneb) 3 ml INHALATION Q4H.RT PRN PRN Reason: Wheezing Amlodipine Besylate (Norvasc) 5 mg PO DAILY [facility] Last Admin: 10/22/17 06:32 Dose: 5 mg Aspirin (Ecotrin) 81 mg PO DAILY@0800 [facility] Last Admin: 10/22/17 06:29 Dose: 81 mg Atorvastatin Calcium (Lipitor) 40 mg PO QHS [facility] Last Admin: 10/21/17 22:36 Dose: 40 mg Calcium/Vitamin D (Os-West 500mg + D) 1 tablet PO BID [facility] Last Admin: 10/22/17 08:48 Dose: 1 tablet Clopidogrel Bisulfate (Plavix) 75 mg PO DAILY [facility] Last Admin: 10/22/17 06:29 Dose: 75 mg Furosemide (Lasix) 40 mg IV BID@1000,1800 [facility] Last Admin: 10/22/17 08:48 Dose: 40 mg Sodium Chloride () 1,000 mls @ 15 mls/hr IV .Q48H [facility] PRN Reason: KVO Last Admin: 10/21/17 06:29 Dose: 15 mls/hr Dextrose () 1,000 mls @ 60 mls/hr IV .[id number] [facility] Last Admin: 10/22/17 08:47 Dose: 60 mls/hr Insulin Glargine (Lantus (Bkc)) 30 units SC BID [facility] Last Admin: 10/22/17 10:52 Dose: Not Given Isosorbide Mononitrate (Imdur) 30 mg PO DAILY [facility] Last Admin: 10/22/17 06:32 Dose: 30 mg Magnesium Hydroxide (Milk Of Magnesia) 30 ml PO DAILY PRN PRN PRN Reason: Constipation Metolazone (Zaroxolyn) 2.5 mg PO DAILY [facility] Last Admin: 10/22/17 08:49 Dose: 2.5 mg Metoprolol Tartrate (Lopressor (Beta Rah)) 25 mg PO BID [facility] Last Admin: 10/22/17 06:29 Dose: 25 mg Mirtazapine (Remeron) 15 mg PO QHS [facility] Last Admin: 10/21/17 22:36 Dose: 15 mg Multivitamins (Multivitamin) 1 tablet PO DAILY@0800 [facility] Last Admin: 10/22/17 08:48 Dose: 1 tablet Pantoprazole Sodium (Protonix) 40 mg PO DAILY [facility] Last Admin: 10/22/17 08:49 Dose: 40 mg Sodium Chloride () 5 - 30 ml IV UD PRN PRN Reason: SALINE FLUSH Last Admin: 10/21/17 16:22 Dose: 10 ml Medical Necessity - Tobacco Use Smoking Status: Never smoker Assessment/Plan All Active Problems (Last Reviewed 10/17/17 @ 01:46 by M Marielle Sementi, DO) CAP (community acquired pneumonia) (Acute) NSTEMI (non-ST elevated myocardial infarction) (Acute) Acute on chronic respiratory failure with hypoxia and hypercapnia (Acute) Acute on chronic combined systolic and diastolic heart failure (Acute) Acute kidney injury superimposed on chronic kidney disease (Resolved) Acute respiratory failure with hypoxia (Resolved) COPD exacerbation (Resolved) Chest pain (Resolved) Fall (Resolved) Hyperkalemia (Resolved) 82-year-old female admitted with a complaint of shortness of breath. Been managed for CHF exacerbation and NSTEMI. 1. Acute exacerbation of CHF Patient remains short of breath. Now on BiPAP and desaturated to the 80s overnight and so FiO2 on BiPAP was increased from 45% to 55%. Patient however states her shortness of breath has remained the same. Urine output:1900mls over last 24 hours; in negative balance by 538mls. fluid restriction to 1500cc daily Echo showed mildly dilated left ventricle with moderate concentric left ventricular hypertrophy and estimated EF of 45%. Severely hypokinetic apex with hypokinetic inferobasal wall and hypokinetic septal apex. Rest of wall segments are normal. Anterior apex is also hypokinetic. Moderately enlarged left atrium. Pulmonary artery systolic pressure is 59 mmHg indicating moderate pulmonary hypertension. Compared to previous the findings are not completely changed. Will consider getting a CAT scan to further delineate the lung parenchyma as patient's shortness of breath is just not improving and she may have underlying interstitial lung disease which is contributing to current symptoms. cardiology on board; waiting to optimise patient respiratory-blanchard before doing cath started on metolazone 2.5mg daily yesterdy 2. NSTEMI Troponin was 4.58 on admission and went up to 4.79 and trended slightly down to 4.39 EKG showed no acute ST changes. remains on heparin drip; on aspirin, plavix and beta blockers cardiology to decide when to do cardiac cath 3. AFib: rate controlled. Currently on heparin drip 4. Acute on chronic hypoxic and hypercapnic respiratory failure due to CHF exacerbation now on BiPAP with 55% oxygen. To try to wean off BiPAP as tolerated. pulmo on board 5. Hypertension: BP down to 119/50 today. BP has been well controlled otherwise. On amlodipine and metoprolol. Allergic to LEANDER-I, so not on LEANDER-I or ARB 6. Hypernatremia: resolving. NA is 149. Nephro on board. Was started on 60mls of D5W. will monitor 7. CKD 3: Cr down to 1.41 today. Nephro on board. Will monitor 8. Diabetes mellitus: on lantus 30IU bid. Accuchecks ACHS. ISS 9. DVT prophylaxis: on heparin drip This note was generated with [employer] software. It may contain incorrect words, spelling, and punctuation that were not noted in checking the note before signing. Code Visit Inpatient E&M: 77439 Subs Hosp L3
--- NOTE | 2017-10-22 12:29 | PN_ITS ---
Patient Problems: Active and Suspected Problems (Last Reviewed 10/17/17 @ 01:46 by Campos Aquino DO) CAP (community acquired pneumonia) (Acute) NSTEMI (non-ST elevated myocardial infarction) (Acute) Acute on chronic respiratory failure with hypoxia and hypercapnia (Acute) Subjective: Patient seen and examined. She had no complaints and says her shortness of breath was better. However according to nurse, patient desaturated to the 80s also on the BiPAP overnight and FiO2 was increased from 45% to 55% as a result. She denied any chest pain or cough, any abdominal pain, any diarrhea vomiting. Review of systems otherwise negative. Vitals/I&O's: Vital Signs Temp Pulse Resp BP Pulse Ox 98.1 F 56 L 18 119/50 L 95 10/22/17 11:21 10/22/17 11:22 10/22/17 11:21 10/22/17 11:21 10/22/17 11:21 Oxygen Flow Rate (L/min) 6 Oxygen Delivery Method Bi-pap Weight: 195 lb 15.855 oz Body Mass Index (BMI) 32.9 Intake and Output for Last 24 Hours 10/20/17 10/21/17 10/22/17 23:59 23:59 23:59 Intake Total 646 / 646 1361.3 / 1361.3 355 / 355 Output Total 775 / 775 1900 / 1900 650 / 650 Balance -129 / -129 -538.7 / -538.7 -295 / -295 General: Alert, Oriented x3, Cooperative, - - Moderate respiratory distress HEENT: Atraumatic, PERRLA, EOMI, Normocephalic Oral: Moist Mucosa Neck: Supple, No JVD, Negative Carotid Bruits Lungs: - - Has coarse crackles in mid and lower lungs bilaterally. Cardiovascular: Regular rate, Regular Rhythm, Normal S1, Normal S2, No murmurs Abdomen: Bowel Sounds Present, Soft, Non Tender, Non-Distended, No Hepato- splenomegaly Extremities: No clubbing, No cyanosis, No edema, Capillary Refill Less than 3 Seconds Skin: No rashes, No breakdown Musculoskeletal: No Tenderness to Palpation of Joints or Extremities Lymphatic: No Cervical, Supraclavicular, or Inguinal Adenopathy Neurological: Cranial nerves II-XII grossly intact Psych/Mental Status: Normal Affect, Appropriate, Alert and oriented to time, place, person, mood and affect Microbiology Past 72 Hours 10/20/17 01:28 Mucosa - Nasopharyngeal Influenza Types A,B Direct FA (SIXTO) - Final Laboratory Results 10/21/17 22:25: POC Glucose 95 10/22/17 05:30: WBC 7.8, RBC 3.29 L, Hgb 8.1 L, Hct 31.2 L, MCV 94.8, MCH 24.6 L , MCHC 26.0 L, RDW 18.3 H, RDW Differential 60.3 H, Plt Count 218, MPV 10.9, Immature Gran % (Auto) 0.100, Neut % (Auto) 77.5 H, Lymph % (Auto) 11.8 L, Turner % (Auto) 7.2, Eos % (Auto) 2.9, Baso % (Auto) 0.5, Absolute Neuts (auto) 6.1, Absolute Lymphs (auto) 0.92, Total Counted Not Reportable 10/22/17 05:30: PT 16.2 H, INR 1.3, APTT 29.9 10/22/17 05:30: Sodium 149 H, Potassium 3.9, Chloride 111 H, Carbon Dioxide 35.0 H, Anion Gap 3 L, BUN 36 H, Creatinine 1.41 H, Estim Creat Clear Calc 27.02 , Est GFR (MDRD) Af Amer 46 L, Est GFR (MDRD) Non-Af 38 L, BUN/Creatinine Ratio 25.5 H, Glucose 109 H, Calcium 8.0 L 10/22/17 06:50: POC Glucose 119 H 10/22/17 11:19: POC Glucose 120 H Current Medications Acetaminophen (Tylenol) 650 mg PO Q6H PRN PRN PRN Reason: Mild Pain (scale 0-3)/T>100.7 Albuterol/Ipratropium (Duoneb) 3 ml INHALATION Q4H.RT PRN PRN Reason: Wheezing Amlodipine Besylate (Norvasc) 5 mg PO DAILY [facility] Last Admin: 10/22/17 06:32 Dose: 5 mg Aspirin (Ecotrin) 81 mg PO DAILY@0800 [facility] Last Admin: 10/22/17 06:29 Dose: 81 mg Atorvastatin Calcium (Lipitor) 40 mg PO QHS [facility] Last Admin: 10/21/17 22:36 Dose: 40 mg Calcium/Vitamin D (Os-West 500mg + D) 1 tablet PO BID [facility] Last Admin: 10/22/17 08:48 Dose: 1 tablet Clopidogrel Bisulfate (Plavix) 75 mg PO DAILY [facility] Last Admin: 10/22/17 06:29 Dose: 75 mg Furosemide (Lasix) 40 mg IV BID@1000,1800 [facility] Last Admin: 10/22/17 08:48 Dose: 40 mg Sodium Chloride () 1,000 mls @ 15 mls/hr IV .Q48H [facility] PRN Reason: KVO Last Admin: 10/21/17 06:29 Dose: 15 mls/hr Dextrose () 1,000 mls @ 60 mls/hr IV .[id number] [facility] Last Admin: 10/22/17 08:47 Dose: 60 mls/hr Insulin Glargine (Lantus (Bkc)) 30 units SC BID [facility] Last Admin: 10/22/17 10:52 Dose: Not Given Isosorbide Mononitrate (Imdur) 30 mg PO DAILY [facility] Last Admin: 10/22/17 06:32 Dose: 30 mg Magnesium Hydroxide (Milk Of Magnesia) 30 ml PO DAILY PRN PRN PRN Reason: Constipation Metolazone (Zaroxolyn) 2.5 mg PO DAILY [facility] Last Admin: 10/22/17 08:49 Dose: 2.5 mg Metoprolol Tartrate (Lopressor (Beta Rah)) 25 mg PO BID [facility] Last Admin: 10/22/17 06:29 Dose: 25 mg Mirtazapine (Remeron) 15 mg PO QHS [facility] Last Admin: 10/21/17 22:36 Dose: 15 mg Multivitamins (Multivitamin) 1 tablet PO DAILY@0800 [facility] Last Admin: 10/22/17 08:48 Dose: 1 tablet Pantoprazole Sodium (Protonix) 40 mg PO DAILY [facility] Last Admin: 10/22/17 08:49 Dose: 40 mg Sodium Chloride () 5 - 30 ml IV UD PRN PRN Reason: SALINE FLUSH Last Admin: 10/21/17 16:22 Dose: 10 ml Medical Necessity - Tobacco Use Smoking Status: Never smoker Assessment/Plan All Active Problems (Last Reviewed 10/17/17 @ 01:46 by M Marielle Sementi, DO) CAP (community acquired pneumonia) (Acute) NSTEMI (non-ST elevated myocardial infarction) (Acute) Acute on chronic respiratory failure with hypoxia and hypercapnia (Acute) Acute on chronic combined systolic and diastolic heart failure (Acute) Acute kidney injury superimposed on chronic kidney disease (Resolved) Acute respiratory failure with hypoxia (Resolved) COPD exacerbation (Resolved) Chest pain (Resolved) Fall (Resolved) Hyperkalemia (Resolved) 82-year-old female admitted with a complaint of shortness of breath. Been managed for CHF exacerbation and NSTEMI. 1. Acute exacerbation of CHF * Patient remains short of breath. Now on BiPAP and desaturated to the 80s overnight and so FiO2 on BiPAP was increased from 45% to 55%. * Patient however states her shortness of breath has remained the same. * Urine output:1900mls over last 24 hours; in negative balance by 538mls. * fluid restriction to 1500cc daily * Echo showed mildly dilated left ventricle with moderate concentric left ventricular hypertrophy and estimated EF of 45%. Severely hypokinetic apex with hypokinetic inferobasal wall and hypokinetic septal apex. Rest of wall segments are normal. Anterior apex is also hypokinetic. Moderately enlarged left atrium. Pulmonary artery systolic pressure is 59 mmHg indicating moderate pulmonary hypertension. Compared to previous the findings are not completely changed. * Will consider getting a CAT scan to further delineate the lung parenchyma as patient's shortness of breath is just not improving and she may have underlying interstitial lung disease which is contributing to current symptoms. * cardiology on board; waiting to optimise patient respiratory-blanchard before doing cath * started on metolazone 2.5mg daily yesterdy * 2. NSTEMI * Troponin was 4.58 on admission and went up to 4.79 and trended slightly down to 4.39 * EKG showed no acute ST changes. * remains on heparin drip; on aspirin, plavix and beta blockers * cardiology to decide when to do cardiac cath * 3. AFib: rate controlled. Currently on heparin drip 4. Acute on chronic hypoxic and hypercapnic respiratory failure due to CHF exacerbation * now on BiPAP with 55% oxygen. To try to wean off BiPAP as tolerated. * pulmo on board * 5. Hypertension: * BP down to 119/50 today. * BP has been well controlled otherwise. * On amlodipine and metoprolol. * Allergic to LEANDER-I, so not on LEANDER-I or ARB 6. Hypernatremia: * resolving. NA is 149. Nephro on board. * Was started on 60mls of D5W. will monitor * 7. CKD 3: Cr down to 1.41 today. Nephro on board. Will monitor 8. Diabetes mellitus: on lantus 30IU bid. Accuchecks ACHS. ISS 9. DVT prophylaxis: on heparin drip This note was generated with [employer] dictation software. It may contain incorrect words, spelling, and punctuation that were not noted in checking the note before signing. Code Visit Inpatient E&M: 49376 Subs Hosp L3
[2017-10-22 16:15] LABS: Bedside Glucose 114 mg/dL (70-110)
--- NOTE | 2017-10-22 18:30 | PN.RENAL_ITS ---
Patient Problems: Active and Suspected Problems (Last Reviewed 10/17/17 @ 01:46 by Campos Aquino DO) CAP (community acquired pneumonia) (Acute) NSTEMI (non-ST elevated myocardial infarction) (Acute) Acute on chronic respiratory failure with hypoxia and hypercapnia (Acute) Subjective: on BIPAP. Breathing stable. Received metolazone, renal fxn improved. Appetite still poor. Continues to have orthopnea. - Physical Exam General: Alert, Oriented x3, Cooperative, No apparent distress, - - on BIPAP Oral: Dry Mucosa Neck: Supple, JVD, Bilateral Lungs: Rales, Rhonchi Cardiovascular: Irregular Rate Abdomen: Bowel Sounds Present, Soft, Non Tender, Non-Distended, Obese Extremities: No edema Skin: No rashes Vital Signs Temp Pulse Resp BP Pulse Ox 98.7 F 57 L 18 121/59 H 95 10/22/17 17:00 10/22/17 17:00 10/22/17 17:00 10/22/17 17:00 10/22/17 17:00 Oxygen Flow Rate (L/min) 6 Oxygen Delivery Method Bi-pap Weight: 88.9 kg Body Mass Index (BMI) 32.9 Intake and Output for Last 24 Hours 10/20/17 10/21/17 10/22/17 23:59 23:59 23:59 Intake Total 646 / 646 1361.3 / 1361.3 355 / 355 Output Total 775 / 775 1900 / 1900 650 / 650 Balance -129 / -129 -538.7 / -538.7 -295 / -295 Microbiology Past 72 Hours 10/20/17 01:28 Influenza Types A,B Direct FA (SIXTO) - Final Mucosa - Nasopharyngeal Laboratory Tests Past 24 Hrs 10/22/17 10/22/17 10/22/17 05:30 05:30 05:30 WBC 7.8 RBC 3.29 L Hgb 8.1 L Hct 31.2 L MCV 94.8 MCH 24.6 L MCHC 26.0 L RDW 18.3 H RDW Differential 60.3 H Plt Count 218 MPV 10.9 Immature Gran % (Auto) 0.100 Neut % (Auto) 77.5 H Lymph % (Auto) 11.8 L [place] % (Auto) 7.2 Eos % (Auto) 2.9 Baso % (Auto) 0.5 Absolute Neuts (auto) 6.1 Absolute Lymphs (auto) 0.92 Total Counted Not Reportable PT 16.2 H INR 1.3 APTT 29.9 Sodium 149 H Potassium 3.9 Chloride 111 H Carbon Dioxide 35.0 H Anion Gap 3 L BUN 36 H Creatinine 1.41 H Estim Creat Clear Calc 27.02 Est GFR (MDRD) Af Amer 46 L Est GFR (MDRD) Non-Af 38 L BUN/Creatinine Ratio 25.5 H Glucose 109 H Calcium 8.0 L POC Glucose 10/22/17 10/22/17 10/21/17 11:19 06:50 22:25 POC Glucose 120 H 119 H 95 Medical Necessity - Tobacco Use Smoking Status: Never smoker Assessment/Plan All Active Problems (Last Reviewed 10/17/17 @ 01:46 by Campos Aquino DO) CAP (community acquired pneumonia) (Acute) NSTEMI (non-ST elevated myocardial infarction) (Acute) Acute on chronic respiratory failure with hypoxia and hypercapnia (Acute) Acute on chronic combined systolic and diastolic heart failure (Acute) Acute kidney injury superimposed on chronic kidney disease (Resolved) Acute respiratory failure with hypoxia (Resolved) COPD exacerbation (Resolved) Chest pain (Resolved) Fall (Resolved) Hyperkalemia (Resolved) 1. LANDRY on CKD stage 3. baseline creatinine 1.2 eGFR 45cc/min on 10/18 now at 1.4 from 1.73 yesterday. Remains on lasix iv and metolazone. Likely hemodynamically mediated with recent NSTEMI. 2. Hypernatremia due to free water deficit improved with D5W. 3. Acute respiratory distress/COPD exacerbation pulmonary following. 4. CAD with NSTEMI +troponins. Cardiology following. 5. DM2 primary mgmt, stable 6. CHF diuresis improved.
[2017-10-22] MEDS: Mirtazapine 15 MG Tablet PO (22:47)
[2017-10-22] MEDS: Atorvastatin Calcium 40 MG Tablet PO (22:47)
[2017-10-22 23:26] LABS: Bedside Glucose 120 mg/dL (70-110)
[2017-10-23] VITALS (17 sets, daily range): BP systolic 103–140; BP diastolic 42–82; PULSE 54–92; RESP 12–23; TEMP 36.4–37; O2SAT 94–98
[2017-10-23 04:45] LABS: Bedside Glucose 179 mg/dL (70-110)
[2017-10-23 05:21] LABS: Absolute Lymphocyte Count 1.01 X10^3/ul (0.83-4.51); Absolute Neutrophil Count 6.3 X10^3/uL (2.0-7.7); Basophil# 0.03 X10^3/uL; Basophil% 0.4 % (0-1); Eosinophil# 0.14 X10^3/uL; Eosinophils% 1.8 % (0-5); Hematocrit 30.1 % (37-47); Hemoglobin 8.2 g/dl (12.0-15.0); Lymphocyte # 1.01 X10^3/ul (4.0); Lymphocyte % 12.7 % (19-41); Mean Corp Hgb Conc 27.2 g/gl (32-36); Mean Corpuscular Hgb 25.2 pg (27.0-32.0); Mean Corpuscular Volume 92.6 fL (81-99); Mean Platelet Vol. 10.9 fl (6.2-12.0); Monocyte# 0.53 X10^3/uL; Monocyte% 6.6 % (0-10); Neutrophil # 6.25 X10^3/uL (2.7-7.7); Neutrophil % 78.4 % (47-70); Platelet Count 219 K/mm3 (150-450); RBC Distribution Width SD 58.5 fl (35.1-43.9); Red Blood Count 3.25 M/mm3 (4.2-5.4)
[2017-10-23 05:27] LABS: POSITIVE COUNT NO; POSITIVE DIFFERENTIAL NO; POSITIVE MORPHOLOGY NO; Partial Thromboplast Time 30.1 Seconds (24.1-36.2)
[2017-10-23 05:33] LABS: International Normalized Ratio 1.2; Prothrombin Time (Protime)PT. 15.6 SECONDS (11.7-14.9)
[2017-10-23 05:34] LABS: Anion Gap 2 (5-15); BUN 35 mg/dL (7-18); BUN/Creat Ratio 25.2 RATIO (10-20); Calcium,Total 8.5 mg/dL (8.5-10.1); Chloride 105 mmol/L (98-107); Creatinine, Serum 1.39 mg/dL (0.55-1.02); EST Glomerular Filtration Rate 39 mL/min (>60); Est Glom Filt Rate - Afr Amer 47 mL/min (>60); Estimated Creatinine Clearance 27.41 ml/min; Glucose 170 mg/dL (74-106); Potassium 3.9 mmol/L (3.5-5.1); Sodium Level 146 mmol/L (136-145)
[2017-10-23] MEDS: Isosorbide Mononitrate 30 MG Tablet PO (06:27)
[2017-10-23] MEDS: Aspirin E.C. 81 MG Tablet PO (06:27)
[2017-10-23] MEDS: Metoprolol Tartrate 25 MG Tablet PO ×2 (06:27→21:36)
[2017-10-23] MEDS: Clopidogrel Bisulfate 75 MG Tablet PO (06:28)
[2017-10-23] MEDS: amLODIPine 5 MG Tablet PO (06:28)
[2017-10-23 07:36] LABS: Bedside Glucose 166 mg/dL (70-110)
--- NOTE | 2017-10-23 08:27 | PN_ITS ---
Patient Problems: Active and Suspected Problems (Last Reviewed 10/17/17 @ 01:46 by Campos Aquino DO) CAP (community acquired pneumonia) (Acute) NSTEMI (non-ST elevated myocardial infarction) (Acute) Acute on chronic respiratory failure with hypoxia and hypercapnia (Acute) Subjective: Patient did okay overnight. No desaturation episodes were reported. Patient with no complaints this morning. Nursing does report patient was incontinent, so inputs and outputs are inaccurate. Patient is reportedly planned for a heart catheterization later today. Nursing continues to report the patient can lie flat with the assistance of BiPAP therapy. Patient comes off of BiPAP therapy to eat, but tends to keep BiPAP therapy during the day out of comfort. - Physical Exam General: Alert, Cooperative, No apparent distress, - - Obese. Interacting appropriately. Good BiPAP synchrony noted. HEENT: Atraumatic, PERRLA, EOMI, Normocephalic, - - No scleral icterus or injection noted. Oral: No Gingival or Mucosal Lesions/ Ulcerations, Dry Mucosa Neck: Supple, No Nodes, Trachea Midline, JVD, Right Lungs: No rhonchi, No wheeze, Diminished, Rales, - - Symmetric expansion. No dullness to percussion. Cardiovascular: Normal S1, Normal S2, Irregular Rate, Murmur, No rub noted, No Gallop Abdomen: Bowel Sounds Present, Soft, Non Tender, Non-Distended, Obese Extremities: No clubbing, No cyanosis, No edema, Capillary Refill Less than 3 Seconds Skin: - - No significant change compared to previous Musculoskeletal: No Tenderness to Palpation of Joints or Extremities Lymphatic: No Cervical, Supraclavicular, or Inguinal Adenopathy Neurological: Cranial nerves II-XII grossly intact, Neuro grossly intact, Motor Exam 5/5 strength throughout Psych/Mental Status: Normal Affect, Appropriate Vital Signs Temp Pulse Resp BP Pulse Ox 36.4 C L 62 23 H 140/65 H 96 10/23/17 04:30 10/23/17 07:16 10/23/17 05:15 10/23/17 04:30 10/23/17 05:15 Oxygen Flow Rate (L/min) 6 Oxygen Delivery Method Bi-pap Weight: 88.8 kg Body Mass Index (BMI) 32.9 Intake and Output for Last 24 Hours 10/21/17 10/22/17 10/23/17 23:59 23:59 23:59 Intake Total 1361.3 / 1361.3 1068 / 1068 890 / 890 Output Total 1900 / 1900 850 / 850 Balance -538.7 / -538.7 218 / 218 890 / 890 Laboratory Tests Past 24 Hrs 10/23/17 10/23/17 10/23/17 05:11 05:11 05:11 WBC 8.0 RBC 3.25 L Hgb 8.2 L Hct 30.1 L MCV 92.6 MCH 25.2 L MCHC 27.2 L RDW 18.0 H RDW Differential 58.5 H Plt Count 219 MPV 10.9 Immature Gran % (Auto) 0.100 Neut % (Auto) 78.4 H Lymph % (Auto) 12.7 L Sanders % (Auto) 6.6 Eos % (Auto) 1.8 Baso % (Auto) 0.4 Absolute Neuts (auto) 6.3 Absolute Lymphs (auto) 1.01 Total Counted Not Reportable PT Cancelled 15.6 H INR Cancelled 1.2 APTT 30.1 Sodium Potassium Chloride Carbon Dioxide Anion Gap BUN Creatinine Estim Creat Clear Calc Est GFR (MDRD) Af Amer Est GFR (MDRD) Non-Af BUN/Creatinine Ratio Glucose Calcium 10/23/17 05:11 WBC RBC Hgb Hct MCV MCH MCHC RDW RDW Differential Plt Count MPV Immature Gran % (Auto) Neut % (Auto) Lymph % (Auto) Sanders % (Auto) Eos % (Auto) Baso % (Auto) Absolute Neuts (auto) Absolute Lymphs (auto) Total Counted PT INR APTT Sodium 146 H Potassium 3.9 Chloride 105 Carbon Dioxide 39.0 H Anion Gap 2 L BUN 35 H Creatinine 1.39 H Estim Creat Clear Calc 27.41 Est GFR (MDRD) Af Amer 47 L Est GFR (MDRD) Non-Af 39 L BUN/Creatinine Ratio 25.2 H Glucose 170 H Calcium 8.5 POC Glucose 10/23/17 10/23/17 10/22/17 06:35 04:27 21:08 POC Glucose 166 H 179 H 120 H 10/22/17 11:19 POC Glucose 120 H Medical Necessity - Tobacco Use Smoking Status: Never smoker Assessment/Plan All Active Problems (Last Reviewed 10/17/17 @ 01:46 by Campos Aquino DO) CAP (community acquired pneumonia) (Acute) NSTEMI (non-ST elevated myocardial infarction) (Acute) Acute on chronic respiratory failure with hypoxia and hypercapnia (Acute) Acute on chronic combined systolic and diastolic heart failure (Acute) Acute kidney injury superimposed on chronic kidney disease (Resolved) Acute respiratory failure with hypoxia (Resolved) COPD exacerbation (Resolved) Chest pain (Resolved) Fall (Resolved) Hyperkalemia (Resolved) RECOMMENDATIONS 1. Wean oxygen supplementation to keep saturations 88-92%. 2. Encourage incentive spirometer and increased activity as tolerated 3. Continue aerosols 5. Continue diuresis, monitor renal function daily may need to decrease dose , especially with upcoming heart cath and dye load 6. Encourage BiPAP with breaks as tolerated during the day, continue at night 7. Ambulatory pulse ox prior to discharge 8. Unclear when last sleep study was, patient would benefit from repeat polysomnogram as an outpatient 9. Patient can follow-up in the pulmonary clinic in 2 weeks at which time testing can be arranged IMPRESSIONS 1. Acute on chronic hypoxic and hypercarbic respiratory failure secondary to CHF exacerbation in the setting of elevated troponins Patient appears to be responding well to BiPAP therapy. Unfortunately, patient is not taking breaks during the day and it is unclear on if she is improving. Patient is incontinent of urine, so inputs and outputs are inaccurate. Will follow with daily weights. Patient should have supplemental oxygen weaned as tolerated. Hope is that heart catheterization with optimization of heart function could lead to improved delivery to the kidneys. Will need to monitor her kidneys closely given dye load with active diuresis. No indication for superinfection with fever or chills at this time. Patient does have poor dentition noted. 2. Non-STEMI Heart catheterization reportedly planned for today. Cardiology is following. 3. History of A. fib/CAD/type 2 diabetes mellitus/CKD stage III/anemia Complicates care, management, recovery, and prognosis. Continue home medications as indicated. Renal is following. Thank you for the opportunity to participate in this patient's care, please do not hesitate contact us with any further questions or concerns. This note was generated with [employer] software. It may contain incorrect words, spelling, and punctuation that were not noted in checking the note before signing. Code Visit Inpatient E&M: 38758 Subs Hosp L2
[2017-10-23] MEDS: 0.9% Normal Saline 1,000 ML 100 ML IV (08:52)
--- NOTE | 2017-10-23 08:52 | PN.RENAL_ITS ---
Patient Problems: Active and Suspected Problems (Last Reviewed 10/17/17 @ 01:46 by Campos Aquino DO) CAP (community acquired pneumonia) (Acute) NSTEMI (non-ST elevated myocardial infarction) (Acute) Acute on chronic respiratory failure with hypoxia and hypercapnia (Acute) Subjective: breathing better, on Nasal cannula. Renal fxn improved, hypernatremia improving. Going for heart cath today. Denies CP. - Physical Exam General: Alert, Oriented x3, Cooperative, No apparent distress Neck: Supple, JVD, Bilateral Lungs: Diminished, Rales, Rhonchi, - - moist cough Cardiovascular: Irregular Rate Abdomen: Bowel Sounds Present, Soft, Non Tender, Non-Distended Extremities: No edema Psych/Mental Status: Alert and oriented to time, place, person, mood and affect Vital Signs Temp Pulse Resp BP Pulse Ox 97.6 F L 62 23 H 140/65 H 96 10/23/17 04:30 10/23/17 07:16 10/23/17 05:15 10/23/17 04:30 10/23/17 05:15 Oxygen Flow Rate (L/min) 6 Oxygen Delivery Method Bi-pap Weight: 88.8 kg Body Mass Index (BMI) 32.9 Intake and Output for Last 24 Hours 10/21/17 10/22/17 10/23/17 23:59 23:59 23:59 Intake Total 1361.3 / 1361.3 1068 / 1068 890 / 890 Output Total 1900 / 1900 850 / 850 Balance -538.7 / -538.7 218 / 218 890 / 890 Laboratory Tests Past 24 Hrs 10/23/17 10/23/17 10/23/17 05:11 05:11 05:11 WBC 8.0 RBC 3.25 L Hgb 8.2 L Hct 30.1 L MCV 92.6 MCH 25.2 L MCHC 27.2 L RDW 18.0 H RDW Differential 58.5 H Plt Count 219 MPV 10.9 Immature Gran % (Auto) 0.100 Neut % (Auto) 78.4 H Lymph % (Auto) 12.7 L Russell % (Auto) 6.6 Eos % (Auto) 1.8 Baso % (Auto) 0.4 Absolute Neuts (auto) 6.3 Absolute Lymphs (auto) 1.01 Total Counted Not Reportable PT Cancelled 15.6 H INR Cancelled 1.2 APTT 30.1 Sodium Potassium Chloride Carbon Dioxide Anion Gap BUN Creatinine Estim Creat Clear Calc Est GFR (MDRD) Af Amer Est GFR (MDRD) Non-Af BUN/Creatinine Ratio Glucose Calcium 10/23/17 05:11 WBC RBC Hgb Hct MCV MCH MCHC RDW RDW Differential Plt Count MPV Immature Gran % (Auto) Neut % (Auto) Lymph % (Auto) Russell % (Auto) Eos % (Auto) Baso % (Auto) Absolute Neuts (auto) Absolute Lymphs (auto) Total Counted PT INR APTT Sodium 146 H Potassium 3.9 Chloride 105 Carbon Dioxide 39.0 H Anion Gap 2 L BUN 35 H Creatinine 1.39 H Estim Creat Clear Calc 27.41 Est GFR (MDRD) Af Amer 47 L Est GFR (MDRD) Non-Af 39 L BUN/Creatinine Ratio 25.2 H Glucose 170 H Calcium 8.5 POC Glucose 10/23/17 10/23/17 10/22/17 06:35 04:27 21:08 POC Glucose 166 H 179 H 120 H 10/22/17 11:19 POC Glucose 120 H Medical Necessity - Tobacco Use Smoking Status: Never smoker Assessment/Plan All Active Problems (Last Reviewed 10/17/17 @ 01:46 by Campos Aquino DO) CAP (community acquired pneumonia) (Acute) NSTEMI (non-ST elevated myocardial infarction) (Acute) Acute on chronic respiratory failure with hypoxia and hypercapnia (Acute) Acute on chronic combined systolic and diastolic heart failure (Acute) Acute kidney injury superimposed on chronic kidney disease (Resolved) Acute respiratory failure with hypoxia (Resolved) COPD exacerbation (Resolved) Chest pain (Resolved) Fall (Resolved) Hyperkalemia (Resolved) 1. LANDRY on CKD stage 3. baseline creatinine 1.2 eGFR 45cc/min on 10/18 now at 1.4. Remains on lasix iv and metolazone. Likely hemodynamically mediated with recent NSTEMI. Cath today, normal saline at 1cc/kg/hr. Watch for CAN. 2. Hypernatremia due to free water deficit improved with D5W. 3. Acute respiratory distress/COPD exacerbation pulmonary following. 4. CAD with NSTEMI +troponins. Cardiology following. 5. DM2 primary mgmt, stable 6. CHF stable
--- NOTE | 2017-10-23 09:49 | CASEMGMT ---
SW called patient's granddaughter to discuss discharge plan. She is okay with patient going somewhere for rehab, but not staying assisted at a SNF. She did not have a preference for SNF. She would like her to be in [facility] so she can keep track of patient. She was okay with SW making a referral to [facility] since this is really close to their home. She asked if she could talk to or meet with the physician. SEDA told her when SEDA rounds with physician SEDA will check with her on this. [facility] and left a voice mail for her. Plan: Possibly [facility] pending their acceptance and insurance approval. Nikki LEDESMA MSW
--- NOTE | 2017-10-23 11:52 | CASEMGMT ---
Addendum entered by Nikki Zarate 10/23/17 12:39: SEDA received a return call from Razia and SEDA told her that the physician said when she comes to visit to request staff page physician. She thanked SW. Nikki HECTOR Original Note: SW spoke with physician about talking with patient's granddaughter. She said the best way for her to meet with her would be when she comes to visit to have staff page her. SEDA attempted to call Razia, but her voice mail was full. SEDA will try again later. Nikki HECTOR
--- NOTE | 2017-10-23 12:28 | PCM.PN.HOSP ---
Patient Problems: Active and Suspected Problems (Last Reviewed 10/17/17 @ 01:46 by Campos Aquino DO) CAP (community acquired pneumonia) (Acute) NSTEMI (non-ST elevated myocardial infarction) (Acute) Acute on chronic respiratory failure with hypoxia and hypercapnia (Acute) Subjective: Patient seen and examined. She says her SOB is much better. She had just been taken off the BiPAP onto 6l of oxygen by nasal canula. She denies cough, chest pain, abdominal pain, diarrhea or vomiting. Review of systems is otherwise negative. Medications reviewed and reconciled. Vitals/I&O's: Vital Signs Temp Pulse Resp BP Pulse Ox 98.6 F 54 L 16 103/82 H 96 10/23/17 10:30 10/23/17 11:32 10/23/17 10:30 10/23/17 10:30 10/23/17 10:30 Oxygen Flow Rate (L/min) 8 Oxygen Delivery Method Nasal Cannula Weight: 195 lb 12.328 oz Body Mass Index (BMI) 32.9 Intake and Output for Last 24 Hours 10/21/17 10/22/17 10/23/17 23:59 23:59 23:59 Intake Total 1361.3 / 1361.3 1068 / 1068 890 / 890 Output Total 1900 / 1900 850 / 850 Balance -538.7 / -538.7 218 / 218 890 / 890 General: Alert, Oriented x3, Cooperative, No apparent distress HEENT: Atraumatic, PERRLA, EOMI, Normocephalic Oral: Moist Mucosa Neck: Supple, No JVD, Negative Carotid Bruits, No Nodes Lungs: - - still has coarse crackles bilaterally in mid and lower lung johnson Cardiovascular: Regular rate, Regular Rhythm, Normal S1, Normal S2, No murmurs Abdomen: Bowel Sounds Present, Soft, Non Tender, Non-Distended, No Hepato-splenomegaly Extremities: No clubbing, No cyanosis, No edema, Capillary Refill Less than 3 Seconds Skin: No rashes, No breakdown Musculoskeletal: No Tenderness to Palpation of Joints or Extremities Lymphatic: No Cervical, Supraclavicular, or Inguinal Adenopathy Neurological: Cranial nerves II-XII grossly intact, Motor Exam 5/5 strength throughout Psych/Mental Status: Normal Affect, Appropriate, Alert and oriented to time, place, person, mood and affect Laboratory Results 10/22/17 16:12: POC Glucose Pending 10/22/17 21:08: POC Glucose 120 H 10/23/17 04:27: POC Glucose 179 H 10/23/17 05:11: PT Cancelled, INR Cancelled 10/23/17 05:11: WBC 8.0, RBC 3.25 L, Hgb 8.2 L, Hct 30.1 L, MCV 92.6, MCH 25.2 L, MCHC 27.2 L, RDW 18.0 H, RDW Differential 58.5 H, Plt Count 219, MPV 10.9, Immature Gran % (Auto) 0.100, Neut % (Auto) 78.4 H, Lymph % (Auto) 12.7 L, [place] % (Auto) 6.6, Eos % (Auto) 1.8, Baso % (Auto) 0.4, Absolute Neuts (auto) 6.3, Absolute Lymphs (auto) 1.01, Total Counted Not Reportable 10/23/17 05:11: PT 15.6 H, INR 1.2, APTT 30.1 10/23/17 05:11: Sodium 146 H, Potassium 3.9, Chloride 105, Carbon Dioxide 39.0 H, Anion Gap 2 L, BUN 35 H, Creatinine 1.39 H, Estim Creat Clear Calc 27.41, Est GFR (MDRD) Af Amer 47 L, Est GFR (MDRD) Non-Af 39 L, BUN/Creatinine Ratio 25.2 H, Glucose 170 H, Calcium 8.5 10/23/17 06:35: POC Glucose 166 H Diagnostic Data Chest X-Ray 10/20/17 05:55 IMPRESSION: Progressive CHF as compared to prior study. Electronically Signed: Sergio Leon MD at 9:50 EDT Tel [phone], Service support , Current Medications Acetaminophen (Tylenol) 650 mg PO Q6H PRN PRN PRN Reason: Mild Pain (scale 0-3)/T>100.7 Albuterol/Ipratropium (Duoneb) 3 ml INHALATION Q4H.RT PRN PRN Reason: Wheezing Amlodipine Besylate (Norvasc) 5 mg PO DAILY [facility] Last Admin: 10/23/17 06:28 Dose: 5 mg Aspirin (Ecotrin) 81 mg PO DAILY@0800 [facility] Last Admin: 10/23/17 06:27 Dose: 81 mg Atorvastatin Calcium (Lipitor) 40 mg PO QHS [facility] Last Admin: 10/22/17 22:47 Dose: 40 mg Calcium/Vitamin D (Os-West 500mg + D) 1 tablet PO BID [facility] Last Admin: 10/22/17 22:47 Dose: 1 tablet Clopidogrel Bisulfate (Plavix) 75 mg PO DAILY [facility] Last Admin: 10/23/17 06:28 Dose: 75 mg Furosemide (Lasix) 40 mg IV BID@1000,1800 [facility] Last Admin: 10/22/17 18:20 Dose: 40 mg Sodium Chloride () 1,000 mls @ 15 mls/hr IV .Q48H [facility] PRN Reason: KVO Last Admin: 10/23/17 08:52 Dose: Not Given Dextrose () 1,000 mls @ 60 mls/hr IV .[id number] [facility] Last Admin: 10/23/17 01:18 Dose: 60 mls/hr Sodium Chloride () 1,000 mls @ 100 mls/hr IV .Q10H [facility] Last Admin: 10/23/17 08:52 Dose: 100 mls/hr Insulin Glargine (Lantus (Bkc)) 30 units SC BID [facility] Last Admin: 10/22/17 22:47 Dose: 30 units Isosorbide Mononitrate (Imdur) 30 mg PO DAILY [facility] Last Admin: 10/23/17 06:27 Dose: 30 mg Magnesium Hydroxide (Milk Of Magnesia) 30 ml PO DAILY PRN PRN PRN Reason: Constipation Metolazone (Zaroxolyn) 2.5 mg PO DAILY [facility] Last Admin: 10/22/17 08:49 Dose: 2.5 mg Metoprolol Tartrate (Lopressor (Beta Rah)) 25 mg PO BID [facility] Last Admin: 10/23/17 06:27 Dose: 25 mg Mirtazapine (Remeron) 15 mg PO QHS [facility] Last Admin: 10/22/17 22:47 Dose: 15 mg Multivitamins (Multivitamin) 1 tablet PO DAILY@0800 [facility] Last Admin: 10/22/17 08:48 Dose: 1 tablet Pantoprazole Sodium (Protonix) 40 mg PO DAILY [facility] Last Admin: 10/22/17 08:49 Dose: 40 mg Sodium Chloride () 5 - 30 ml IV UD PRN PRN Reason: SALINE FLUSH Last Admin: 10/21/17 16:22 Dose: 10 ml Medical Necessity - Tobacco Use Smoking Status: Never smoker Assessment/Plan All Active Problems (Last Reviewed 10/17/17 @ 01:46 by Campos Aquino DO) CAP (community acquired pneumonia) (Acute) NSTEMI (non-ST elevated myocardial infarction) (Acute) Acute on chronic respiratory failure with hypoxia and hypercapnia (Acute) Acute on chronic combined systolic and diastolic heart failure (Acute) Acute kidney injury superimposed on chronic kidney disease (Resolved) Acute respiratory failure with hypoxia (Resolved) COPD exacerbation (Resolved) Chest pain (Resolved) Fall (Resolved) Hyperkalemia (Resolved) 82-year-old female admitted with a complaint of shortness of breath. Been managed for CHF exacerbation and NSTEMI. 1. Acute exacerbation of HFpEF still SOB and on BIPAP at night; on 6l of oxygen by nasal canula. says her SOB is getting better. urine output is 850mls over last 24 hours. fluid restricted to 1500cc daily. Echo showed mildly dilated left ventricle with moderate concentric left ventricular hypertrophy and estimated EF of 45%. Severely hypokinetic apex with hypokinetic inferobasal wall and hypokinetic septal apex. Rest of wall segments are normal. Anterior apex is also hypokinetic. Moderately enlarged left atrium. Pulmonary artery systolic pressure is 59 mmHg indicating moderate pulmonary hypertension. Compared to previous the findings are not completely changed. cardiology on board. Per dicussion with cardiology, for cardiac cath tomorrow. started on metolazone 2.5mg daily yesterday; on IV lasix 40mg bid. 2. NSTEMI Troponin was 4.58 on admission and went up to 4.79 and trended slightly down to 4.39 EKG showed no acute ST changes. remains on heparin drip; on aspirin, plavix and beta blockers per cardiology, for cardiac cath tomorrow. will keep NPO past midnight. on Imdur 3. AFib: rate controlled. Currently on heparin drip 4. Acute on chronic hypoxic and hypercapnic respiratory failure due to CHF exacerbation on BIPAP qhs and oxygen by nasal canula during the day. pulmo on board 5. Hypertension On amlodipine and metoprolol. Allergic to LEANDER-I, so not on LEANDER-I or ARB 6. Hypernatremia: resolving. NA is 146. Nephro on board. Was started on 60mls of D5W. will monitor 7. CKD 3: Cr trended down slowly; now down to 1.39 today. Will monitor. Nephro on board. 8. Diabetes mellitus: on lantus 30IU bid. Accuchecks ACHS. ISS 9. DVT prophylaxis: on heparin drip This note was generated with [employer] dictation software. It may contain incorrect words, spelling, and punctuation that were not noted in checking the note before signing. Code Visit Inpatient E&M: 87236 Subs Hosp L3
--- NOTE | 2017-10-23 12:40 | PN_ITS ---
Patient Problems: Active and Suspected Problems (Last Reviewed 10/17/17 @ 01:46 by Campos Aquino DO) CAP (community acquired pneumonia) (Acute) NSTEMI (non-ST elevated myocardial infarction) (Acute) Acute on chronic respiratory failure with hypoxia and hypercapnia (Acute) Subjective: Patient seen and examined. She says her SOB is much better. She had just been taken off the BiPAP onto 6l of oxygen by nasal canula. She denies cough, chest pain, abdominal pain, diarrhea or vomiting. Review of systems is otherwise negative. Medications reviewed and reconciled. Vitals/I&O's: Vital Signs Temp Pulse Resp BP Pulse Ox 98.6 F 54 L 16 103/82 H 96 10/23/17 10:30 10/23/17 11:32 10/23/17 10:30 10/23/17 10:30 10/23/17 10:30 Oxygen Flow Rate (L/min) 8 Oxygen Delivery Method Nasal Cannula Weight: 195 lb 12.328 oz Body Mass Index (BMI) 32.9 Intake and Output for Last 24 Hours 10/21/17 10/22/17 10/23/17 23:59 23:59 23:59 Intake Total 1361.3 / 1361.3 1068 / 1068 890 / 890 Output Total 1900 / 1900 850 / 850 Balance -538.7 / -538.7 218 / 218 890 / 890 General: Alert, Oriented x3, Cooperative, No apparent distress HEENT: Atraumatic, PERRLA, EOMI, Normocephalic Oral: Moist Mucosa Neck: Supple, No JVD, Negative Carotid Bruits, No Nodes Lungs: - - still has coarse crackles bilaterally in mid and lower lung johnson Cardiovascular: Regular rate, Regular Rhythm, Normal S1, Normal S2, No murmurs Abdomen: Bowel Sounds Present, Soft, Non Tender, Non-Distended, No Hepato- splenomegaly Extremities: No clubbing, No cyanosis, No edema, Capillary Refill Less than 3 Seconds Skin: No rashes, No breakdown Musculoskeletal: No Tenderness to Palpation of Joints or Extremities Lymphatic: No Cervical, Supraclavicular, or Inguinal Adenopathy Neurological: Cranial nerves II-XII grossly intact, Motor Exam 5/5 strength throughout Psych/Mental Status: Normal Affect, Appropriate, Alert and oriented to time, place, person, mood and affect Laboratory Results 10/22/17 16:12: POC Glucose Pending 10/22/17 21:08: POC Glucose 120 H 10/23/17 04:27: POC Glucose 179 H 10/23/17 05:11: PT Cancelled, INR Cancelled 10/23/17 05:11: WBC 8.0, RBC 3.25 L, Hgb 8.2 L, Hct 30.1 L, MCV 92.6, MCH 25.2 L , MCHC 27.2 L, RDW 18.0 H, RDW Differential 58.5 H, Plt Count 219, MPV 10.9, Immature Gran % (Auto) 0.100, Neut % (Auto) 78.4 H, Lymph % (Auto) 12.7 L, [place] % (Auto) 6.6, Eos % (Auto) 1.8, Baso % (Auto) 0.4, Absolute Neuts (auto) 6.3, Absolute Lymphs (auto) 1.01, Total Counted Not Reportable 10/23/17 05:11: PT 15.6 H, INR 1.2, APTT 30.1 10/23/17 05:11: Sodium 146 H, Potassium 3.9, Chloride 105, Carbon Dioxide 39.0 H , Anion Gap 2 L, BUN 35 H, Creatinine 1.39 H, Estim Creat Clear Calc 27.41, Est GFR (MDRD) Af Amer 47 L, Est GFR (MDRD) Non-Af 39 L, BUN/Creatinine Ratio 25.2 H , Glucose 170 H, Calcium 8.5 10/23/17 06:35: POC Glucose 166 H Diagnostic Data Chest X-Ray 10/20/17 05:55 IMPRESSION: Progressive CHF as compared to prior study. Electronically Signed: Sergio Leon MD at 9:50 EDT Tel [phone], Service support , Current Medications Acetaminophen (Tylenol) 650 mg PO Q6H PRN PRN PRN Reason: Mild Pain (scale 0-3)/T>100.7 Albuterol/Ipratropium (Duoneb) 3 ml INHALATION Q4H.RT PRN PRN Reason: Wheezing Amlodipine Besylate (Norvasc) 5 mg PO DAILY [facility] Last Admin: 10/23/17 06:28 Dose: 5 mg Aspirin (Ecotrin) 81 mg PO DAILY@0800 [facility] Last Admin: 10/23/17 06:27 Dose: 81 mg Atorvastatin Calcium (Lipitor) 40 mg PO QHS [facility] Last Admin: 10/22/17 22:47 Dose: 40 mg Calcium/Vitamin D (Os-West 500mg + D) 1 tablet PO BID [facility] Last Admin: 10/22/17 22:47 Dose: 1 tablet Clopidogrel Bisulfate (Plavix) 75 mg PO DAILY [facility] Last Admin: 10/23/17 06:28 Dose: 75 mg Furosemide (Lasix) 40 mg IV BID@1000,1800 [facility] Last Admin: 10/22/17 18:20 Dose: 40 mg Sodium Chloride () 1,000 mls @ 15 mls/hr IV .Q48H [facility] PRN Reason: KVO Last Admin: 10/23/17 08:52 Dose: Not Given Dextrose () 1,000 mls @ 60 mls/hr IV .[id number] [facility] Last Admin: 10/23/17 01:18 Dose: 60 mls/hr Sodium Chloride () 1,000 mls @ 100 mls/hr IV .Q10H [facility] Last Admin: 10/23/17 08:52 Dose: 100 mls/hr Insulin Glargine (Lantus (Bkc)) 30 units SC BID [facility] Last Admin: 10/22/17 22:47 Dose: 30 units Isosorbide Mononitrate (Imdur) 30 mg PO DAILY [facility] Last Admin: 10/23/17 06:27 Dose: 30 mg Magnesium Hydroxide (Milk Of Magnesia) 30 ml PO DAILY PRN PRN PRN Reason: Constipation Metolazone (Zaroxolyn) 2.5 mg PO DAILY [facility] Last Admin: 10/22/17 08:49 Dose: 2.5 mg Metoprolol Tartrate (Lopressor (Beta Rah)) 25 mg PO BID [facility] Last Admin: 10/23/17 06:27 Dose: 25 mg Mirtazapine (Remeron) 15 mg PO QHS [facility] Last Admin: 10/22/17 22:47 Dose: 15 mg Multivitamins (Multivitamin) 1 tablet PO DAILY@0800 [facility] Last Admin: 10/22/17 08:48 Dose: 1 tablet Pantoprazole Sodium (Protonix) 40 mg PO DAILY [facility] Last Admin: 10/22/17 08:49 Dose: 40 mg Sodium Chloride () 5 - 30 ml IV UD PRN PRN Reason: SALINE FLUSH Last Admin: 10/21/17 16:22 Dose: 10 ml Medical Necessity - Tobacco Use Smoking Status: Never smoker Assessment/Plan All Active Problems (Last Reviewed 10/17/17 @ 01:46 by Campos Aquino DO) CAP (community acquired pneumonia) (Acute) NSTEMI (non-ST elevated myocardial infarction) (Acute) Acute on chronic respiratory failure with hypoxia and hypercapnia (Acute) Acute on chronic combined systolic and diastolic heart failure (Acute) Acute kidney injury superimposed on chronic kidney disease (Resolved) Acute respiratory failure with hypoxia (Resolved) COPD exacerbation (Resolved) Chest pain (Resolved) Fall (Resolved) Hyperkalemia (Resolved) 82-year-old female admitted with a complaint of shortness of breath. Been managed for CHF exacerbation and NSTEMI. 1. Acute exacerbation of HFpEF * still SOB and on BIPAP at night; on 6l of oxygen by nasal canula. * says her SOB is getting better. * urine output is 850mls over last 24 hours. * fluid restricted to 1500cc daily. * Echo showed mildly dilated left ventricle with moderate concentric left ventricular hypertrophy and estimated EF of 45%. Severely hypokinetic apex with hypokinetic inferobasal wall and hypokinetic septal apex. Rest of wall segments are normal. Anterior apex is also hypokinetic. Moderately enlarged left atrium. Pulmonary artery systolic pressure is 59 mmHg indicating moderate pulmonary hypertension. Compared to previous the findings are not completely changed. * cardiology on board. Per dicussion with cardiology, for cardiac cath tomorrow. * started on metolazone 2.5mg daily yesterday; on IV lasix 40mg bid. * 2. NSTEMI * Troponin was 4.58 on admission and went up to 4.79 and trended slightly down to 4.39 * EKG showed no acute ST changes. * remains on heparin drip; on aspirin, plavix and beta blockers * per cardiology, for cardiac cath tomorrow. will keep NPO past midnight. * on Imdur 3. AFib: rate controlled. Currently on heparin drip 4. Acute on chronic hypoxic and hypercapnic respiratory failure due to CHF exacerbation * on BIPAP qhs and oxygen by nasal canula during the day. * pulmo on board * 5. Hypertension * On amlodipine and metoprolol. * Allergic to LEANDER-I, so not on LEANDER-I or ARB 6. Hypernatremia: * resolving. NA is 146. Nephro on board. * Was started on 60mls of D5W. will monitor * 7. CKD 3: Cr trended down slowly; now down to 1.39 today. Will monitor. Nephro on board. 8. Diabetes mellitus: on lantus 30IU bid. Accuchecks ACHS. ISS 9. DVT prophylaxis: on heparin drip This note was generated with [employer] dictation software. It may contain incorrect words, spelling, and punctuation that were not noted in checking the note before signing. Code Visit Inpatient E&M: 64612 Subs Hosp L3
[2017-10-23] MEDS: Calcium Carb/Vitamin D 1 TABLET Tablet PO ×2 (13:00→21:36)
[2017-10-23] MEDS: Furosemide 40 MG/4 ML Vial IV ×2 (13:00→17:20)
[2017-10-23] MEDS: Multivitamins,Therapeutic Tablet 1 TABLET PO (13:00)
[2017-10-23] MEDS: Pantoprazole Sodium 40 MG Tablet PO (13:01)
[2017-10-23] MEDS: Metolazone 2.5 MG Tablet PO (13:01)
[2017-10-23 13:16] LABS: Bedside Glucose 116 mg/dL (70-110)
--- NOTE | 2017-10-23 14:28 | CASEMGMT ---
SW received a voice mail from Ayleen at [facility]. They are currently reluctant to accept patient due to her oxygenation requirements. They would like to wait until after her heart cath to see if that helps. SEDA will follow up with [facility] tomorrow. Nikki LEDESMA MSW
[2017-10-23] MEDS: 0.9% Normal Saline 1,000 ML 50 ML IV (17:22)
[2017-10-23 18:11] LABS: Bedside Glucose 206 mg/dL (70-110)
[2017-10-23] MEDS: Insulin Lispro 100 UNIT/ML INSULN.PEN SC (21:34)
[2017-10-23] MEDS: Atorvastatin Calcium 40 MG Tablet PO (21:36)
[2017-10-23] MEDS: Mirtazapine 15 MG Tablet PO (21:36)
[2017-10-23 23:00] LABS: Bedside Glucose 196 mg/dL (70-110)
[2017-10-24] VITALS (27 sets, daily range): BP systolic 120–167; BP diastolic 44–80; PULSE 50–72; RESP 12–22; TEMP 36.7–37.4; O2SAT 90–95
[2017-10-24 05:01] LABS: Absolute Lymphocyte Count 1.19 X10^3/ul (0.83-4.51); Absolute Neutrophil Count 7.7 X10^3/uL (2.0-7.7); Basophil# 0.04 X10^3/uL; Basophil% 0.4 % (0-1); Eosinophil# 0.29 X10^3/uL; Hematocrit 33.6 % (37-47); Lymphocyte # 1.19 X10^3/ul (4.0); Lymphocyte % 12.2 % (19-41); Mean Corp Hgb Conc 26.8 g/gl (32-36); Mean Corpuscular Hgb 24.3 pg (27.0-32.0); Mean Corpuscular Volume 90.6 fL (81-99); Mean Platelet Vol. 10.9 fl (6.2-12.0); Monocyte# 0.52 X10^3/uL; Monocyte% 5.3 % (0-10); Neutrophil # 7.69 X10^3/uL (2.7-7.7); Platelet Count 236 K/mm3 (150-450); RBC Distribution Width CV 17.9 % (11.6-14.6); RBC Distribution Width SD 59.3 fl (35.1-43.9); Red Blood Count 3.71 M/mm3 (4.2-5.4); White Blood Count 9.7 K/mm3 (4.4-11.0)
[2017-10-24 05:07] LABS: POSITIVE COUNT NO; POSITIVE DIFFERENTIAL NO
[2017-10-24 05:08] LABS: International Normalized Ratio 1.2; POSITIVE MORPHOLOGY NO; Partial Thromboplast Time 28.7 Seconds (24.1-36.2); Prothrombin Time (Protime)PT. 14.8 SECONDS (11.7-14.9)
[2017-10-24 05:26] LABS: Anion Gap 5 (5-15); BUN 35 mg/dL (7-18); BUN/Creat Ratio 25.4 RATIO (10-20); Calcium,Total 8.7 mg/dL (8.5-10.1); Chloride 101 mmol/L (98-107); Creatinine, Serum 1.38 mg/dL (0.55-1.02); EST Glomerular Filtration Rate 39 mL/min (>60); Est Glom Filt Rate - Afr Amer 47 mL/min (>60); Estimated Creatinine Clearance 27.61 ml/min; Glucose 137 mg/dL (74-106); Potassium 3.7 mmol/L (3.5-5.1); Sodium Level 145 mmol/L (136-145)
[2017-10-24] MEDS: Aspirin E.C. 81 MG Tablet PO (05:54)
[2017-10-24] MEDS: amLODIPine 5 MG Tablet PO (05:55)
[2017-10-24] MEDS: Clopidogrel Bisulfate 75 MG Tablet PO (05:55)
[2017-10-24] MEDS: Isosorbide Mononitrate 30 MG Tablet PO (05:55)
[2017-10-24] MEDS: Metoprolol Tartrate 25 MG Tablet PO ×2 (05:55→22:45)
--- NOTE | 2017-10-24 05:55 | EKG12_ITS ---
Test Reason : AM EKG Blood Pressure : / mmHG Vent. Rate : 058 BPM Atrial Rate : 375 BPM P-R Int : 000 ms QRS Dur : 132 ms QT Int : 470 ms P-R-T Axes : 000 -08 143 degrees QTc Int : 461 ms Atrial fibrillation Right bundle branch block Anterior infarct , age undetermined Abnormal ECG When compared with ECG of 22-OCT-2017 04:55, MANUAL COMPARISON REQUIRED, DATA IS UNCONFIRMED Confirmed by LINDY STOVALL, JENNIFER ([id number]), proposal editor STEFANIA WILDER ([id number]) on 10/28/2017 3:06:02 PM Referred By: KARLA Confirmed By:JENNIFER ISRAEL MD
[2017-10-24 06:51] LABS: Bedside Glucose 127 mg/dL (70-110)
--- NOTE | 2017-10-24 06:56 | NURSING ---
Report called to [facility]. Patient headed down at this time
--- NOTE | 2017-10-24 08:46 | CL.D_ITS ---
Patient Name: SABRINA GONZALEZ Study Date: 10/24/2017 Performing: Ángel Michelle MD Ht: 64 inches 163 cm : 1935 Wt: 196.5 lbs 89 kg Age: 82 Gender: female BSA: 1.94 PROCEDURE(S) PERFORMED BN98-ENI/COR/LV/CABG CLINICAL PROFILE AND INDICATIONS Indications: Suspected CAD Heart Failure: NYHA Class: 3, Newly Diagnosed: No, Heart Failure Type: Systolic Stress/Imaging Stress/Image Study Performed: No CONCLUSIONS Severe diffuse disease involving the [place] right coronary artery, circumflex artery, and with severe hypokinesis to akinesis of the anterior wall and apex and mild hypokinesis of the basal inferior wal l RECOMMENDATIONS Would recommend viability/stress test study as outpatient to see whether patient would benefit from t argeted revascularization.. DESCRIPTION OF PROCEDURE The patient arrived to the procedure lab. The risks and benefits of the procedure as well as a full d escription of our services here and current unavailability of surgical backup were fully explained to the patient and/or their significant other prior to the catheterization. The Timeout was completed, verifying the correct patient and procedure. The patient's procedural site was prepped and draped in the usual fashion. Local anesthetic was given subcutaneously to right groin region with Lidocaine 2%. Using a modified Seldinger technique, arterial access was obtained via the right femoral artery, a 5 Fr sheath was inserted. Left Coronary Artery selective angiography was performed in multiple views u sing a 5 Fr. JL4 catheter. Right Coronary Artery selective angiography was then performed in multiple views using a 5 Fr. 3DRC (Rudi) catheter. Saphenous Vein graft to the Circumflex selective angio graphy was performed in multiple views using a 5 Fr. 3DRC (Rudi) catheter. Saphenous Vein graft t o the unknown artery (occluded graft) selective angiography was performed in single view using a 5 Fr . 3DRC (Rudi) catheter. Left internal mammary artery graft to the LAD selective angiography was p erformed in multiple views using a 5 Fr. 3DRC (Rudi) catheter. Left Ventriculography was performe d in STRICK[place] projection using a 5 Fr. Pigtail catheter. LV to AO pullback pressures were then recorded.Co ntrast was injected through the sheath and the Right Iliac and Femoral artery were assessed for possi ble closure device.The arterial sheath was pulled and a Mynx closure device was deployed for hemostas is CORONARY ANGIOGRAPHY DOMINANCE: Right Dominant LEFT HEART ASSESSMENT Left Ventricular Ejection Fraction: by LV Gram 40 % Abnormal LV wall motion. Anterior Hypokinesis - Moderate. Apical Akinesis Depressed Left Ventricular systolic function LEFT MAIN: 60 % Stenosis, Moderate calcification LEFT ANTERIOR DECENDING ARTERY: PROX LAD: is occluded DIAGONAL 1: Proximal - Moderate luminal irregularities up to 50% CIRCUMFLEX ARTERY: MID CIRC: 70-80 % Stenosis DISTAL CIRC: Mild luminal irregularities less than 30% RIGHT CORONARY ARTERY: PROX RCA: Mild luminal irregularities MID RCA: Diffusely diseased up to 70 % DISTAL RCA: Mild luminal irregularities less than 30% GRAFTS: Saphenous Vein graft to the 2nd OM is patent Saphenous Vein graft to the 2nd Diagonal is totally occluded POSADAS graft to the Mid LAD is patent COMPLICATIONS No Complications PROCEDURE MEDICATIONS Oxygen: 6 L/min via nasal cannula SUMMARY OF HEMODYNAMIC DATA Time AIR REST ECG 07:13:55 AO 147/55 (84) SA 07:51:58 LV 125/6, 20 08:09:45 LV 154/8, 16 08:09:52 LVp 166/12, 20 08:12:05 LV 165/11, 22 08:12:07 AOp 161/60 (95) 08:12:10 Signed By Ángel Michelle MD On 10/24/2017 08:45:09 Ángel Michelle MD
[2017-10-24] MEDS: Multivitamins,Therapeutic Tablet 1 TABLET PO (08:58)
[2017-10-24] MEDS: Pantoprazole Sodium 40 MG Tablet PO (08:59)
[2017-10-24] MEDS: Calcium Carb/Vitamin D 1 TABLET Tablet PO ×2 (08:59→22:45)
[2017-10-24] MEDS: Metolazone 2.5 MG Tablet PO (08:59)
[2017-10-24] MEDS: Furosemide 40 MG Tablet PO (09:02)
--- NOTE | 2017-10-24 09:14 | CASEMGMT ---
Addendum entered by Nikki Zarate 10/24/17 10:45: SW received a call from Kristin at [facility] and they do not have any beds available. SW called [facility] and they do not have any beds available. SW called [facility] and left a message with referral as well as faxed referral. Await response from [facility]. Nikki HECTOR Original Note: SEDA spoke with physician and she would like to d/c patient. [facility]A is working on placement for patient. SEDA left a message for [facility] letting them know patient had her heart cath and medical management. SW faxed updates. Nikki LEDESMA [employer]
[2017-10-24] MEDS: 0.9% Normal Saline 1,000 ML 75 ML IV (09:18)
--- NOTE | 2017-10-24 10:48 | PCM.PROGNOTE ---
Patient Problems: Active and Suspected Problems (Last Reviewed 10/17/17 @ 01:46 by Campos Aquino DO) CAP (community acquired pneumonia) (Acute) NSTEMI (non-ST elevated myocardial infarction) (Acute) Acute on chronic respiratory failure with hypoxia and hypercapnia (Acute) Subjective: Patient did okay overnight. No acute issues were reported. Patient reportedly did tolerate heart catheterization this morning on 6 L nasal cannula alone. No BiPAP was required. Patient denies any complaints at this time other than being sleepy. Patient continues to have large incontinence, so inputs and outputs are not accurate. - Physical Exam General: - - Sleeping comfortably on arrival. Awakens easily. Speaking in full sentences. Obese. HEENT: Atraumatic, PERRLA, EOMI, Normocephalic, - - No scleral icterus or injection noted. Oral: Moist Mucosa, No Gingival or Mucosal Lesions/ Ulcerations Neck: Supple, No JVD, No Nodes, Trachea Midline Lungs: No rhonchi, No wheeze, Diminished, Rales, - - Symmetric expansion. No dullness to percussion. Cardiovascular: Normal S1, Normal S2, Irregular Rate, Murmur, No rub noted, No Gallop Abdomen: Bowel Sounds Present, Soft, Non Tender, Non-Distended, Obese Extremities: No cyanosis, No edema, Capillary Refill Less than 3 Seconds, Edema Skin: - - No significant change compared to previous Musculoskeletal: No Tenderness to Palpation of Joints or Extremities Lymphatic: No Cervical, Supraclavicular, or Inguinal Adenopathy Neurological: Cranial nerves II-XII grossly intact, Neuro grossly intact, Motor Exam 5/5 strength throughout Psych/Mental Status: Appropriate, Flat Affect Vital Signs Temp Pulse Resp BP Pulse Ox 37.1 C 52 L 18 134/65 H 94 10/24/17 09:15 10/24/17 09:15 10/24/17 09:15 10/24/17 09:15 10/24/17 09:15 Oxygen Flow Rate (L/min) 6 Oxygen Delivery Method Nasal Cannula Weight: 87.3 kg Body Mass Index (BMI) 32.9 Intake and Output for Last 24 Hours 10/22/17 10/23/17 10/24/17 23:59 23:59 23:59 Intake Total 1068 / 1068 2099 / 2099 625 / 625 Output Total 850 / 850 Balance 218 / 218 2099 / 2099 625 / 625 Laboratory Tests Past 24 Hrs 10/24/17 10/24/17 10/24/17 04:52 04:52 04:52 WBC 9.7 RBC 3.71 L Hgb 9.0 L Hct 33.6 L MCV 90.6 MCH 24.3 L MCHC 26.8 L RDW 17.9 H RDW Differential 59.3 H Plt Count 236 MPV 10.9 Immature Gran % (Auto) 0.100 Neut % (Auto) 79.0 H Lymph % (Auto) 12.2 L [place] % (Auto) 5.3 Eos % (Auto) 3.0 Baso % (Auto) 0.4 Absolute Neuts (auto) 7.7 Absolute Lymphs (auto) 1.19 Total Counted Not Reportable PT 14.8 INR 1.2 APTT 28.7 Sodium 145 Potassium 3.7 Chloride 101 Carbon Dioxide 39.0 H Anion Gap 5 BUN 35 H Creatinine 1.38 H Estim Creat Clear Calc 27.61 Est GFR (MDRD) Af Amer 47 L Est GFR (MDRD) Non-Af 39 L BUN/Creatinine Ratio 25.4 H Glucose 137 H Calcium 8.7 POC Glucose 10/24/17 10/23/17 10/23/17 05:51 21:23 18:04 POC Glucose 127 H 196 H 206 H 10/23/17 12:57 POC Glucose 116 H Medical Necessity - Tobacco Use Smoking Status: Never smoker Assessment/Plan All Active Problems (Last Reviewed 10/17/17 @ 01:46 by Campos Aquino DO) CAP (community acquired pneumonia) (Acute) NSTEMI (non-ST elevated myocardial infarction) (Acute) Acute on chronic respiratory failure with hypoxia and hypercapnia (Acute) Acute on chronic combined systolic and diastolic heart failure (Acute) Acute kidney injury superimposed on chronic kidney disease (Resolved) Acute respiratory failure with hypoxia (Resolved) COPD exacerbation (Resolved) Chest pain (Resolved) Fall (Resolved) Hyperkalemia (Resolved) RECOMMENDATIONS 1. Wean oxygen supplementation to keep saturations 88-92%. 2. Encourage incentive spirometer and increased activity as tolerated 3. Continue aerosols 5. Continue diuresis, monitor renal function daily may need to decrease dose 6. Encourage BiPAP with breaks as tolerated during the day, continue at night and with sleep 7. Ambulatory pulse ox prior to discharge 8. Unclear when last sleep study was, patient would benefit from polysomnogram as an outpatient 9. Patient can follow-up in the pulmonary clinic in 2 weeks at which time testing can be arranged IMPRESSIONS 1. Acute on chronic hypoxic and hypercarbic respiratory failure secondary to CHF exacerbation in the setting of elevated troponins Patient appears to be responding well to BiPAP therapy. Continue to encourage patient to take breaks during the day while awake. Would continue with BiPAP with sleep as patient has a high clinical likelihood of having obstructive sleep apnea. Patient appears to be tolerating aggressive diuresis well with stable creatinine. Continue to wean oxygen as tolerated. Patient should have a walking oximetry prior to discharge. 2. Non-STEMI Heart catheterization reportedly planned for today. Cardiology is following. 3. History of A. fib/CAD/type 2 diabetes mellitus/CKD stage III/anemia Complicates care, management, recovery, and prognosis. Continue home medications as indicated. Renal is following. Addendum 1351: Patient with respiratory concerns throughout the day. An ABG was obtained showing hypoxemia. Discussed with respiratory therapy. Will change patient to BiPAP 16/10 cm of water. Can increase FiO2 if necessary. Continue with diuresis. Thank you for the opportunity to participate in this patient's care, please do not hesitate contact us with any further questions or concerns. This note was generated with [employer] dictation software. It may contain incorrect words, spelling, and punctuation that were not noted in checking the note before signing. Code Visit Inpatient E&M: 21347 [facility] Hosp L3
--- NOTE | 2017-10-24 11:40 | PCM.PN.HOSP ---
Patient Problems: Active and Suspected Problems (Last Reviewed 10/17/17 @ 01:46 by Campos Aquino DO) CAP (community acquired pneumonia) (Acute) NSTEMI (non-ST elevated myocardial infarction) (Acute) Acute on chronic respiratory failure with hypoxia and hypercapnia (Acute) Subjective: The patient is a 82 year old female w/ h/o coronary artery disease, chronic respiratory failure due to CHF on home oxygen 2 L, CHF, diabetes, chronic kidney disease, and HTN was admitted on 10/19/2017 with a complaint of shortness of breath. She was discharged just 2 days ago after being admitted for acute CHF exacerbation and she had presented then with shortness of breath 2. She had had another admission in late September for similar presentation and also managed for CHF exacerbation. She claims compliance with her medications. She denied any chest pain. However on admission, troponin was noted to be elevated at 4.[address] changes. She was admitted and is being managed for acute CHF exacerbation and NSTEMI. She is on heparin drip. Cardiology is on board. Patient was diuresed with IV Lasix. Nephrology was concerned on account of worsening hyponatremia with sodium going up to 155 and also CKD stage III. Patient's respiratory status did not improve and she needed increasing requirements of oxygen up to 6 L with BiPAP at night and as needed during the day. Pulmonology was also consulted and advocated continuing BiPAP at night and oxygen during the day. She had an echocardiogram which showed mildly dilated left ventricle with moderate concentric left ventricular hypertrophy and estimated EF of 45% severely hypokinetic apex, hypokinetic inferior basal wall and hypokinetic septal apex. Rest of wall segments were normal and she had a moderately enlarged left atrium. Pulmonary artery systolic pressure was 59 mmHg. Cardiology is on board and she was also started on metolazone 2.5 mg daily in addition to IV Lasix. She was given D5 Water for hypernatremia which helped it resolve. Cardiac cath(10/24/17) showed severe diffuse disease of the [place] right coronary artery, circumflex artery and with severe hypokinesis to akinesis of the anterior wall and apex and mild hypokinesis of the inferior basal wall. Recommendation was to do viability/stress test study as outpatient C with the patient would benefit from targeted revascularization. Seen and examined today. She had no complaints and says shortness of breath was The same. He denied any cough, chest pain, abdominal pain, diarrhea vomiting. Review of systems otherwise negative. Patient was on 6 L at time of review. Vitals/I&O's: Vital Signs Temp Pulse Resp BP Pulse Ox 98.1 F 59 L 18 123/59 H 94 10/24/17 11:18 10/24/17 11:18 10/24/17 11:18 10/24/17 11:18 10/24/17 11:18 Oxygen Flow Rate (L/min) 6 Oxygen Delivery Method Nasal Cannula Weight: 192 lb 7.417 oz Body Mass Index (BMI) 32.9 Intake and Output for Last 24 Hours 10/22/17 10/23/17 10/24/17 23:59 23:59 23:59 Intake Total 1068 / 1068 2098 / 9 797 / 797 Output Total 850 / 850 Balance 218 / 218 2098 / 2098 797 / 797 General: Alert, Oriented x3, Cooperative, - - Moderate respiratory distress. HEENT: Atraumatic, PERRLA, EOMI, Normocephalic Oral: Moist Mucosa Neck: Supple, No JVD, Negative Carotid Bruits Lungs: Normal air movement, - - still has coarse crackles in mid and lower lung johnson bilaterally Cardiovascular: Regular rate, Regular Rhythm, Normal S1, Normal S2, No murmurs Abdomen: Bowel Sounds Present, Soft, Non Tender, Non-Distended, No Hepato-splenomegaly Extremities: No clubbing, No cyanosis, No edema, Capillary Refill Less than 3 Seconds Skin: No rashes, No breakdown Musculoskeletal: No Tenderness to Palpation of Joints or Extremities Lymphatic: No Cervical, Supraclavicular, or Inguinal Adenopathy Neurological: Cranial nerves II-XII grossly intact Psych/Mental Status: Normal Affect, Appropriate, Alert and oriented to time, place, person, mood and affect Laboratory Results 10/23/17 12:57: POC Glucose 116 H 10/23/17 18:04: POC Glucose 206 H 10/23/17 21:23: POC Glucose 196 H 10/24/17 04:52: WBC 9.7, RBC 3.71 L, Hgb 9.0 L, Hct 33.6 L, MCV 90.6, MCH 24.3 L, MCHC 26.8 L, RDW 17.9 H, RDW Differential 59.3 H, Plt Count 236, MPV 10.9, Immature Gran % (Auto) 0.100, Neut % (Auto) 79.0 H, Lymph % (Auto) 12.2 L, [place] % (Auto) 5.3, Eos % (Auto) 3.0, Baso % (Auto) 0.4, Absolute Neuts (auto) 7.7, Absolute Lymphs (auto) 1.19, Total Counted Not Reportable 10/24/17 04:52: PT 14.8, INR 1.2, APTT 28.7 10/24/17 04:52: Sodium 145, Potassium 3.7, Chloride 101, Carbon Dioxide 39.0 H, Anion Gap 5, BUN 35 H, Creatinine 1.38 H, Estim Creat Clear Calc 27.61, Est GFR (MDRD) Af Amer 47 L, Est GFR (MDRD) Non-Af 39 L, BUN/Creatinine Ratio 25.4 H, Glucose 137 H, Calcium 8.7 10/24/17 05:51: POC Glucose 127 H Current Medications Acetaminophen (Tylenol) 650 mg PO Q6H PRN PRN PRN Reason: Mild Pain (scale 0-3)/T>100.7 Albuterol/Ipratropium (Duoneb) 3 ml INHALATION Q4H.RT PRN PRN Reason: Wheezing Amlodipine Besylate (Norvasc) 5 mg PO DAILY [facility] Last Admin: 10/24/17 05:55 Dose: 5 mg Apixaban (Eliquis) 2.5 mg PO BID [facility] Aspirin (Ecotrin) 81 mg PO DAILY@0800 [facility] Last Admin: 10/24/17 05:54 Dose: 81 mg Atorvastatin Calcium (Lipitor) 40 mg PO QHS [facility] Last Admin: 10/23/17 21:36 Dose: 40 mg Calcium/Vitamin D (Os-West 500mg + D) 1 tablet PO BID [facility] Last Admin: 10/24/17 08:59 Dose: 1 tablet Furosemide (Lasix) 40 mg PO BID@1000,1800 [facility] Last Admin: 10/24/17 09:02 Dose: 40 mg Heparin Sodium (Beef Lung) (Heparin 500 Unit/5 Ml (100/Ml)) 500 unit IV UD PRN PRN Reason: HEPARIN FLUSH Sodium Chloride () 1,000 mls @ 75 mls/hr IV .[id number] [facility] Last Admin: 10/24/17 09:18 Dose: 75 mls/hr Insulin Glargine (Lantus (Bk)) 30 units SC BID [facility] Last Admin: 10/24/17 08:58 Dose: 30 units Insulin Human Lispro (Humalog Kwikpen ([facility])) 0 unit SC ACHS KAITLYNN PRN Reason: Protocol Last Admin: 10/24/17 08:57 Dose: Not Given Isosorbide Mononitrate (Imdur) 30 mg PO DAILY [facility] Last Admin: 10/24/17 05:55 Dose: 30 mg Labetalol HCl (Trandate) 5 mg IV X1 PRN PRN Reason: SBP > 160 prior to sheath pull Magnesium Hydroxide (Milk Of Magnesia) 30 ml PO DAILY PRN PRN PRN Reason: Constipation Metolazone (Zaroxolyn) 2.5 mg PO DAILY [facility] Last Admin: 10/24/17 08:59 Dose: 2.5 mg Metoprolol Tartrate (Lopressor (Beta Rah)) 25 mg PO BID [facility] Last Admin: 10/24/17 05:55 Dose: 25 mg Mirtazapine (Remeron) 15 mg PO QHS [facility] Last Admin: 10/23/17 21:36 Dose: 15 mg Multivitamins (Multivitamin) 1 tablet PO DAILY@0800 [facility] Last Admin: 10/24/17 08:58 Dose: 1 tablet Pantoprazole Sodium (Protonix) 40 mg PO DAILY [facility] Last Admin: 10/24/17 08:59 Dose: 40 mg Sodium Chloride () 5 - 30 ml IV UD PRN PRN Reason: SALINE FLUSH Last Admin: 10/21/17 16:22 Dose: 10 ml Medical Necessity - Tobacco Use Smoking Status: Never smoker Assessment/Plan All Active Problems (Last Reviewed 10/17/17 @ 01:46 by Campos Aquino DO) CAP (community acquired pneumonia) (Acute) NSTEMI (non-ST elevated myocardial infarction) (Acute) Acute on chronic respiratory failure with hypoxia and hypercapnia (Acute) Acute on chronic combined systolic and diastolic heart failure (Acute) Acute kidney injury superimposed on chronic kidney disease (Resolved) Acute respiratory failure with hypoxia (Resolved) COPD exacerbation (Resolved) Chest pain (Resolved) Fall (Resolved) Hyperkalemia (Resolved) 82-year-old female admitted with a complaint of shortness of breath. Been managed for CHF exacerbation and NSTEMI. 1. Acute exacerbation of HFpEF due to ischemic cardiomyopathy still SOB; didnt require BIPAP overnight. on 6L of oxygen by nasal canula input nad output not very accurate due to incontinence Echo showed mildly dilated left ventricle with moderate concentric left ventricular hypertrophy and estimated EF of 45%. Severely hypokinetic apex with hypokinetic inferobasal wall and hypokinetic septal apex. Rest of wall segments are normal. Anterior apex is also hypokinetic. Moderately enlarged left atrium. Pulmonary artery systolic pressure is 59 mmHg indicating moderate pulmonary hypertension. Compared to previous the findings are not completely changed. Cardiac cath showed severe disease of the [place] right coronary artery, circumflex artery and severe hypokinesis to akinesis of anterior wall and apex and mild hypokinesis of the inferior basal wall Accommodation is for outpatient viability/stress test to see with the patient will benefit from targeted revascularization cardiology on board. Per dicussion with cardiology, for cardiac cath tomorrow. on metolazone 2.5mg daily; on IV lasix 40mg bid. Called on Lasix 40 mg daily due to suspicion for metabolic alkalosis. will benefit from cardiac rehab 2. Ischemic cardiomyopathy Troponin was 4.58 on admission and went up to 4.79 and trended slightly down to 4.39 EKG showed no acute ST changes. remains on heparin drip; on aspirin, plavix and beta blockers cardiac cath findings and recommendations as documented above in 1. on Imdur 3. AFib: rate controlled. heparin drip dced. Now on eliquis 2.5mg bid. 4. Acute on chronic hypoxic and hypercapnic respiratory failure due to CHF exacerbation on BIPAP qhs and oxygen by nasal canula during the day. pulmo on board 5. Hypertension On amlodipine and metoprolol. Allergic to LEANDER-I, so not on LEANDER-I or ARB 6. Hypernatremia: resolving Na is 145 today Was started on 60mls of D5W. will monitor 7 Metabolic alkalosis bicarb has increased to 39 and plateaued. I think it is likely due to contraction alkalosis from diuresis; I cannot rule out is atraumatic metabolic alkalosis from CO2 retention due to the shortness of breath she has had. ABG showed metabolic alkalosis, with pH of 7.48. Will stop IV lasix and PO metolazone. Will start PO lasix 40mg daily and PO acetazolamide 250mg bid (4 doses of acetazolamide) and monitor bicarb 8. Pulmonary HTN PA pressure from 2D echo was 59; this is likely due to HFpEF to optimise acute heart failure management to treat. 9. CKD 3: Cr trended down slowly; now 1.38. Nephro on boardnow down to 1.39 today. Will monitor. Nephro on board. 10. Diabetes mellitus: on lantus 30IU bid. Accuchecks ACHS. ISS 11. DVT prophylaxis: on eliqus 2.5mg bid for Afib. This note was generated with [employer] dictation software. It may contain incorrect words, spelling, and punctuation that were not noted in checking the note before signing. Code Visit Inpatient E&M: 19501 Subs Hosp L3
--- NOTE | 2017-10-24 11:52 | PN_ITS ---
Patient Problems: Active and Suspected Problems (Last Reviewed 10/17/17 @ 01:46 by Campos Aquino DO) CAP (community acquired pneumonia) (Acute) NSTEMI (non-ST elevated myocardial infarction) (Acute) Acute on chronic respiratory failure with hypoxia and hypercapnia (Acute) Subjective: The patient is a 82 year old female w/ h/o coronary artery disease, chronic respiratory failure due to CHF on home oxygen 2 L, CHF, diabetes, chronic kidney disease, and HTN was admitted on 10/19/2017 with a complaint of shortness of breath. She was discharged just 2 days ago after being admitted for acute CHF exacerbation and she had presented then with shortness of breath 2. She had had another admission in late September for similar presentation and also managed for CHF exacerbation. She claims compliance with her medications. She denied any chest pain. However on admission, troponin was noted to be elevated at 4.[address] changes. She was admitted and is being managed for acute CHF exacerbation and NSTEMI. She is on heparin drip. Cardiology is on board. Patient was diuresed with IV Lasix. Nephrology was concerned on account of worsening hyponatremia with sodium going up to 155 and also CKD stage III. Patient's respiratory status did not improve and she needed increasing requirements of oxygen up to 6 L with BiPAP at night and as needed during the day. Pulmonology was also consulted and advocated continuing BiPAP at night and oxygen during the day. She had an echocardiogram which showed mildly dilated left ventricle with moderate concentric left ventricular hypertrophy and estimated EF of 45% severely hypokinetic apex, hypokinetic inferior basal wall and hypokinetic septal apex. Rest of wall segments were normal and she had a moderately enlarged left atrium. Pulmonary artery systolic pressure was 59 mmHg. Cardiology is on board and she was also started on metolazone 2.5 mg daily in addition to IV Lasix. She was given D5 Water for hypernatremia which helped it resolve. Cardiac cath(10/24/17) showed severe diffuse disease of the [place] right coronary artery, circumflex artery and with severe hypokinesis to akinesis of the anterior wall and apex and mild hypokinesis of the inferior basal wall. Recommendation was to do viability/stress test study as outpatient C with the patient would benefit from targeted revascularization. Seen and examined today. She had no complaints and says shortness of breath was The same. He denied any cough, chest pain, abdominal pain, diarrhea vomiting. Review of systems otherwise negative. Patient was on 6 L at time of review. Vitals/I&O's: Vital Signs Temp Pulse Resp BP Pulse Ox 98.1 F 59 L 18 123/59 H 94 10/24/17 11:18 10/24/17 11:18 10/24/17 11:18 10/24/17 11:18 10/24/17 11:18 Oxygen Flow Rate (L/min) 6 Oxygen Delivery Method Nasal Cannula Weight: 192 lb 7.417 oz Body Mass Index (BMI) 32.9 Intake and Output for Last 24 Hours 10/22/17 10/23/17 10/24/17 23:59 23:59 23:59 Intake Total 1068 / 1068 2098 / 9 797 / 797 Output Total 850 / 850 Balance 218 / 218 2098 / 2098 797 / 797 General: Alert, Oriented x3, Cooperative, - - Moderate respiratory distress. HEENT: Atraumatic, PERRLA, EOMI, Normocephalic Oral: Moist Mucosa Neck: Supple, No JVD, Negative Carotid Bruits Lungs: Normal air movement, - - still has coarse crackles in mid and lower lung johnson bilaterally Cardiovascular: Regular rate, Regular Rhythm, Normal S1, Normal S2, No murmurs Abdomen: Bowel Sounds Present, Soft, Non Tender, Non-Distended, No Hepato- splenomegaly Extremities: No clubbing, No cyanosis, No edema, Capillary Refill Less than 3 Seconds Skin: No rashes, No breakdown Musculoskeletal: No Tenderness to Palpation of Joints or Extremities Lymphatic: No Cervical, Supraclavicular, or Inguinal Adenopathy Neurological: Cranial nerves II-XII grossly intact Psych/Mental Status: Normal Affect, Appropriate, Alert and oriented to time, place, person, mood and affect Laboratory Results 10/23/17 12:57: POC Glucose 116 H 10/23/17 18:04: POC Glucose 206 H 10/23/17 21:23: POC Glucose 196 H 10/24/17 04:52: WBC 9.7, RBC 3.71 L, Hgb 9.0 L, Hct 33.6 L, MCV 90.6, MCH 24.3 L , MCHC 26.8 L, RDW 17.9 H, RDW Differential 59.3 H, Plt Count 236, MPV 10.9, Immature Gran % (Auto) 0.100, Neut % (Auto) 79.0 H, Lymph % (Auto) 12.2 L, [place] % (Auto) 5.3, Eos % (Auto) 3.0, Baso % (Auto) 0.4, Absolute Neuts (auto) 7.7, Absolute Lymphs (auto) 1.19, Total Counted Not Reportable 10/24/17 04:52: PT 14.8, INR 1.2, APTT 28.7 10/24/17 04:52: Sodium 145, Potassium 3.7, Chloride 101, Carbon Dioxide 39.0 H, Anion Gap 5, BUN 35 H, Creatinine 1.38 H, Estim Creat Clear Calc 27.61, Est GFR (MDRD) Af Amer 47 L, Est GFR (MDRD) Non-Af 39 L, BUN/Creatinine Ratio 25.4 H, Glucose 137 H, Calcium 8.7 10/24/17 05:51: POC Glucose 127 H Current Medications Acetaminophen (Tylenol) 650 mg PO Q6H PRN PRN PRN Reason: Mild Pain (scale 0-3)/T>100.7 Albuterol/Ipratropium (Duoneb) 3 ml INHALATION Q4H.RT PRN PRN Reason: Wheezing Amlodipine Besylate (Norvasc) 5 mg PO DAILY [facility] Last Admin: 10/24/17 05:55 Dose: 5 mg Apixaban (Eliquis) 2.5 mg PO BID [facility] Aspirin (Ecotrin) 81 mg PO DAILY@0800 [facility] Last Admin: 10/24/17 05:54 Dose: 81 mg Atorvastatin Calcium (Lipitor) 40 mg PO QHS [facility] Last Admin: 10/23/17 21:36 Dose: 40 mg Calcium/Vitamin D (Os-West 500mg + D) 1 tablet PO BID [facility] Last Admin: 10/24/17 08:59 Dose: 1 tablet Furosemide (Lasix) 40 mg PO BID@1000,1800 [facility] Last Admin: 10/24/17 09:02 Dose: 40 mg Heparin Sodium (Beef Lung) (Heparin 500 Unit/5 Ml (100/Ml)) 500 unit IV UD PRN PRN Reason: HEPARIN FLUSH Sodium Chloride () 1,000 mls @ 75 mls/hr IV .[id number] [facility] Last Admin: 10/24/17 09:18 Dose: 75 mls/hr Insulin Glargine (Lantus (Bk)) 30 units SC BID [facility] Last Admin: 10/24/17 08:58 Dose: 30 units Insulin Human Lispro (Humalog Kwikpen ([facility])) 0 unit SC ACHS KAITLYNN PRN Reason: Protocol Last Admin: 10/24/17 08:57 Dose: Not Given Isosorbide Mononitrate (Imdur) 30 mg PO DAILY [facility] Last Admin: 10/24/17 05:55 Dose: 30 mg Labetalol HCl (Trandate) 5 mg IV X1 PRN PRN Reason: SBP > 160 prior to sheath pull Magnesium Hydroxide (Milk Of Magnesia) 30 ml PO DAILY PRN PRN PRN Reason: Constipation Metolazone (Zaroxolyn) 2.5 mg PO DAILY [facility] Last Admin: 10/24/17 08:59 Dose: 2.5 mg Metoprolol Tartrate (Lopressor (Beta Rah)) 25 mg PO BID [facility] Last Admin: 10/24/17 05:55 Dose: 25 mg Mirtazapine (Remeron) 15 mg PO QHS [facility] Last Admin: 10/23/17 21:36 Dose: 15 mg Multivitamins (Multivitamin) 1 tablet PO DAILY@0800 [facility] Last Admin: 10/24/17 08:58 Dose: 1 tablet Pantoprazole Sodium (Protonix) 40 mg PO DAILY [facility] Last Admin: 10/24/17 08:59 Dose: 40 mg Sodium Chloride () 5 - 30 ml IV UD PRN PRN Reason: SALINE FLUSH Last Admin: 10/21/17 16:22 Dose: 10 ml Medical Necessity - Tobacco Use Smoking Status: Never smoker Assessment/Plan All Active Problems (Last Reviewed 10/17/17 @ 01:46 by Campos Aquino DO) CAP (community acquired pneumonia) (Acute) NSTEMI (non-ST elevated myocardial infarction) (Acute) Acute on chronic respiratory failure with hypoxia and hypercapnia (Acute) Acute on chronic combined systolic and diastolic heart failure (Acute) Acute kidney injury superimposed on chronic kidney disease (Resolved) Acute respiratory failure with hypoxia (Resolved) COPD exacerbation (Resolved) Chest pain (Resolved) Fall (Resolved) Hyperkalemia (Resolved) 82-year-old female admitted with a complaint of shortness of breath. Been managed for CHF exacerbation and NSTEMI. 1. Acute exacerbation of HFpEF due to ischemic cardiomyopathy * still SOB; didnt require BIPAP overnight. on 6L of oxygen by nasal canula * input nad output not very accurate due to incontinence * Echo showed mildly dilated left ventricle with moderate concentric left ventricular hypertrophy and estimated EF of 45%. Severely hypokinetic apex with hypokinetic inferobasal wall and hypokinetic septal apex. Rest of wall segments are normal. Anterior apex is also hypokinetic. Moderately enlarged left atrium. Pulmonary artery systolic pressure is 59 mmHg indicating moderate pulmonary hypertension. Compared to previous the findings are not completely changed. * Cardiac cath showed severe disease of the [place] right coronary artery, circumflex artery and severe hypokinesis to akinesis of anterior wall and apex and mild hypokinesis of the inferior basal wall * Accommodation is for outpatient viability/stress test to see with the patient will benefit from targeted revascularization * cardiology on board. Per dicussion with cardiology, for cardiac cath tomorrow. * on metolazone 2.5mg daily; on IV lasix 40mg bid. Called on Lasix 40 mg daily due to suspicion for metabolic alkalosis. * will benefit from cardiac rehab * 2. Ischemic cardiomyopathy * Troponin was 4.58 on admission and went up to 4.79 and trended slightly down to 4.39 * EKG showed no acute ST changes. * remains on heparin drip; on aspirin, plavix and beta blockers * cardiac cath findings and recommendations as documented above in 1. * on Imdur 3. AFib: rate controlled. heparin drip dced. Now on eliquis 2.5mg bid. 4. Acute on chronic hypoxic and hypercapnic respiratory failure due to CHF exacerbation * on BIPAP qhs and oxygen by nasal canula during the day. * pulmo on board * 5. Hypertension * On amlodipine and metoprolol. * Allergic to LEANDER-I, so not on LEANDER-I or ARB 6. Hypernatremia: * resolving Na is 145 today * Was started on 60mls of D5W. will monitor * 7 Metabolic alkalosis * bicarb has increased to 39 and plateaued. I think it is likely due to contraction alkalosis from diuresis; I cannot rule out is atraumatic metabolic alkalosis from CO2 retention due to the shortness of breath she has had. * ABG showed metabolic alkalosis, with pH of 7.48. Will stop IV lasix and PO metolazone. Will start PO lasix 40mg daily and PO acetazolamide 250mg bid (4 doses of acetazolamide) and monitor bicarb * 8. Pulmonary HTN * PA pressure from 2D echo was 59; this is likely due to HFpEF * to optimise acute heart failure management to treat. * 9. CKD 3: Cr trended down slowly; now 1.38. Nephro on boardnow down to 1.39 today. Will monitor. Nephro on board. 10. Diabetes mellitus: on lantus 30IU bid. Accuchecks ACHS. ISS 11. DVT prophylaxis: on eliqus 2.5mg bid for Afib. This note was generated with [employer] dictation software. It may contain incorrect words, spelling, and punctuation that were not noted in checking the note before signing. Code Visit Inpatient E&M: 23949 [facility] Hosp L3
--- NOTE | 2017-10-24 12:16 | CASEMGMT ---
Addendum entered by Nikki Zarate 10/24/17 15:27: SEDA spoke with Samaria Phillips letting her know the plan. Nikki HECTOR Original Note: Addendum entered by Nikki Zarate 10/24/17 12:23: SEDA called patient's granddaughter and let her know [facility] can take patient, but it will likely not happen until Friday. She thanked for the update. Plan: [facility] pending insurance approval. Nikki HECTOR Original Note: Received call from Nani at [facility] and they can take patient. She will start the process to obtain insurance authorization. SEDA will talk with patient's granddaughter to let her know this information. Nikki HECTOR
[2017-10-24 12:36] LABS: Bedside Glucose 86 mg/dL (70-110)
[2017-10-24 12:40] LABS: Allen Test POS; Base Excess 17 mmol/L (-2 to +2); Bicarbonate 40.4 mmol/L (22-26); Blood Gas Specimen Type ART; O2 Delivery Device Nasal Can; PO2 52 mmHG (75-100); SITE R Radial; SO2 88 % (95-99); Time Given 1227; Total Carbon Dioxide 42 mmol/L; pCO2 54.4 mmHg (35-45); pH 7.48 (7.35-7.45)
--- NOTE | 2017-10-24 13:23 | PN.RENAL_ITS ---
Patient Problems: Active and Suspected Problems (Last Reviewed 10/17/17 @ 01:46 by Campos Aquino DO) CAP (community acquired pneumonia) (Acute) NSTEMI (non-ST elevated myocardial infarction) (Acute) Acute on chronic respiratory failure with hypoxia and hypercapnia (Acute) Subjective: breathing stable. renal fxn stable s/p heart cath - Physical Exam General: Alert, Oriented x3, Cooperative, No apparent distress Lungs: Diminished Cardiovascular: Irregular Rate Abdomen: Bowel Sounds Present, Soft, Non Tender, Non-Distended Extremities: No edema Musculoskeletal: Muscle Wasting Psych/Mental Status: Normal Affect, Appropriate, Alert and oriented to time, place, person, mood and affect Vital Signs Temp Pulse Resp BP Pulse Ox 98.1 F 56 L 16 148/67 H 93 10/24/17 11:18 10/24/17 11:45 10/24/17 11:45 10/24/17 11:45 10/24/17 11:45 Oxygen Flow Rate (L/min) 4 Oxygen Delivery Method Nasal Cannula Weight: 87.3 kg Body Mass Index (BMI) 32.9 Intake and Output for Last 24 Hours 10/22/17 10/23/17 10/24/17 23:59 23:59 23:59 Intake Total 1068 / 1068 2099 / 2099 797 / 797 Output Total 850 / 850 Balance 218 / 218 2099 / 2099 797 / 797 Laboratory Tests Past 24 Hrs 10/24/17 10/24/17 10/24/17 04:52 04:52 04:52 WBC 9.7 RBC 3.71 L Hgb 9.0 L Hct 33.6 L MCV 90.6 MCH 24.3 L MCHC 26.8 L RDW 17.9 H RDW Differential 59.3 H Plt Count 236 MPV 10.9 Immature Gran % (Auto) 0.100 Neut % (Auto) 79.0 H Lymph % (Auto) 12.2 L Foster % (Auto) 5.3 Eos % (Auto) 3.0 Baso % (Auto) 0.4 Absolute Neuts (auto) 7.7 Absolute Lymphs (auto) 1.19 Total Counted Not Reportable PT 14.8 INR 1.2 APTT 28.7 Specimen Type Sample Site pH Bicarbonate Actual POC Total CO2 Base Excess O2 Saturation ABG pCO2 ABG pO2 Skyler Test O2 Delivery Device Liter Flow Blood Gas Notified Whom Blood Gas Notified Time Sodium 145 Potassium 3.7 Chloride 101 Carbon Dioxide 39.0 H Anion Gap 5 BUN 35 H Creatinine 1.38 H Estim Creat Clear Calc 27.61 Est GFR (MDRD) Af Amer 47 L Est GFR (MDRD) Non-Af 39 L BUN/Creatinine Ratio 25.4 H Glucose 137 H Calcium 8.7 10/24/17 12:38 WBC RBC Hgb Hct MCV MCH MCHC RDW RDW Differential Plt Count MPV Immature Gran % (Auto) Neut % (Auto) Lymph % (Auto) Foster % (Auto) Eos % (Auto) Baso % (Auto) Absolute Neuts (auto) Absolute Lymphs (auto) Total Counted PT INR APTT Specimen Type ART Sample Site R Radial pH 7.48 H Bicarbonate Actual 40.4 H POC Total CO2 42 Base Excess 17 H O2 Saturation 88 L ABG pCO2 54.4 H ABG pO2 52 L Skyler Test POS O2 Delivery Device Nasal Can Liter Flow 6.0 Blood Gas Notified Whom HOSP MD Blood Gas Notified Time 1227 Sodium Potassium Chloride Carbon Dioxide Anion Gap BUN Creatinine Estim Creat Clear Calc Est GFR (MDRD) Af Amer Est GFR (MDRD) Non-Af BUN/Creatinine Ratio Glucose Calcium POC Glucose 10/24/17 10/24/17 10/23/17 11:53 05:51 21:23 POC Glucose 86 127 H 196 H 10/23/17 18:04 POC Glucose 206 H Medical Necessity - Tobacco Use Smoking Status: Never smoker Assessment/Plan All Active Problems (Last Reviewed 10/17/17 @ 01:46 by Campos Aquino DO) CAP (community acquired pneumonia) (Acute) NSTEMI (non-ST elevated myocardial infarction) (Acute) Acute on chronic respiratory failure with hypoxia and hypercapnia (Acute) Acute on chronic combined systolic and diastolic heart failure (Acute) Acute kidney injury superimposed on chronic kidney disease (Resolved) Acute respiratory failure with hypoxia (Resolved) COPD exacerbation (Resolved) Chest pain (Resolved) Fall (Resolved) Hyperkalemia (Resolved) 1. LANDRY on CKD stage 3. baseline creatinine 1.2 eGFR 45cc/min on 10/18 stable at 1.38 s/p heart cath. Remains on lasix and metolazone po. 2. Hypernatremia improved w 3. Acute respiratory distress/COPD 4. CAD with NSTEMI +troponins with abnormal cath. Cardiology following. 5. DM2 primary mgmt, stable 6. CHF stable 7. Contraction metabolic alkalosis. Remains on iv fluids. TRISHA hospitalist.
--- NOTE | 2017-10-24 13:46 | NURSING ---
O2 weaned to 4L NC and sats were 82-86%. Placed back on 6L NC sats 86-88%. Placed back on Bipap and sats 88% and notified RT. RT currently adjusting settings on bipap.
[2017-10-24] MEDS: AcetaZOLAMIDE 250 MG Tablet PO ×2 (16:06→22:44)
[2017-10-24 18:06] LABS: Bedside Glucose 149 mg/dL (70-110)
[2017-10-24] MEDS: Atorvastatin Calcium 40 MG Tablet PO (22:44)
[2017-10-24] MEDS: Mirtazapine 15 MG Tablet PO (22:46)
[2017-10-24] MEDS: Insulin Lispro 100 UNIT/ML INSULN.PEN SC (22:48)
[2017-10-24 23:01] LABS: Bedside Glucose 250 mg/dL (70-110)
[2017-10-25] VITALS (15 sets, daily range): BP systolic 116–147; BP diastolic 48–63; PULSE 55–78; RESP 12–20; TEMP 36.1–36.9; O2SAT 88–96
[2017-10-25] MEDS: 0.9% Normal Saline 1,000 ML 75 ML IV (01:45)
[2017-10-25 07:19] LABS: Absolute Lymphocyte Count 1.38 X10^3/ul (0.83-4.51); Absolute Neutrophil Count 7.7 X10^3/uL (2.0-7.7); Basophil# 0.02 X10^3/uL; Basophil% 0.2 % (0-1); Hemoglobin 8.7 g/dl (12.0-15.0); Lymphocyte # 1.38 X10^3/ul (4.0); Lymphocyte % 13.8 % (19-41); Mean Corp Hgb Conc 26.4 g/gl (32-36); Mean Corpuscular Hgb 24.2 pg (27.0-32.0); Mean Corpuscular Volume 91.7 fL (81-99); Mean Platelet Vol. 11.1 fl (6.2-12.0); Monocyte# 0.62 X10^3/uL; Monocyte% 6.2 % (0-10); Neutrophil # 7.65 X10^3/uL (2.7-7.7); Neutrophil % 76.7 % (47-70); Platelet Count 240 K/mm3 (150-450); RBC Distribution Width CV 18.1 % (11.6-14.6); RBC Distribution Width SD 61.1 fl (35.1-43.9)
[2017-10-25 07:21] LABS: POSITIVE COUNT NO; POSITIVE DIFFERENTIAL NO; POSITIVE MORPHOLOGY NO
[2017-10-25 07:24] LABS: Anion Gap 5 (5-15); BUN 31 mg/dL (7-18); BUN/Creat Ratio 24.8 RATIO (10-20); Calcium,Total 8.5 mg/dL (8.5-10.1); Chloride 103 mmol/L (98-107); Creatinine, Serum 1.25 mg/dL (0.55-1.02); EST Glomerular Filtration Rate 44 mL/min (>60); Est Glom Filt Rate - Afr Amer 53 mL/min (>60); Estimated Creatinine Clearance 30.48 ml/min; Glucose 39 mg/dL (74-106); Potassium 3.5 mmol/L (3.5-5.1); Sodium Level 147 mmol/L (136-145)
--- NOTE | 2017-10-25 07:28 | PCM.PROGNOTE ---
Patient Problems: Active and Suspected Problems (Last Reviewed 10/17/17 @ 01:46 by Campos Aquino DO) CAP (community acquired pneumonia) (Acute) NSTEMI (non-ST elevated myocardial infarction) (Acute) Acute on chronic respiratory failure with hypoxia and hypercapnia (Acute) Subjective: The patient did okay overnight. Nursing reports patient tolerated BiPAP therapy without complication with good saturations. This morning, patient was noted to be hypoglycemic. Patient was attempted on p.o. supplementation, but sugar remains around 50. Patient will be given a half amp of D50. Patient denies any pain at this time. Patient feels subjectively improved from a breathing standpoint. Patient was on nasal cannula oxygen on my arrival. - Physical Exam General: Alert, Cooperative, No apparent distress, - - Speaking in full sentences. No accessory muscle use is noted. HEENT: Atraumatic, PERRLA, EOMI, Normocephalic, - - No scleral icterus or injection noted. Oral: No Gingival or Mucosal Lesions/ Ulcerations, Dry Mucosa, - - Poor dentition Neck: Supple, No JVD, No Nodes, Trachea Midline Lungs: No rhonchi, No wheeze, Diminished, Rales, - - Symmetric expansion. Cardiovascular: Regular rate, Regular Rhythm, Normal S1, Normal S2, Murmur, No rub noted, No Gallop Abdomen: Bowel Sounds Present, Soft, Non Tender, Non-Distended, Obese Extremities: No clubbing, No cyanosis, Capillary Refill Less than 3 Seconds, Edema Skin: - - No significant change compared to previous Musculoskeletal: No Tenderness to Palpation of Joints or Extremities Lymphatic: No Cervical, Supraclavicular, or Inguinal Adenopathy Neurological: Cranial nerves II-XII grossly intact, Neuro grossly intact Psych/Mental Status: Appropriate, Flat Affect Vital Signs Temp Pulse Resp BP Pulse Ox 36.5 C L 55 L 17 116/48 L 96 10/25/17 05:02 10/25/17 05:02 10/25/17 05:02 10/25/17 05:02 10/25/17 05:02 Oxygen Flow Rate (L/min) 6 Oxygen Delivery Method Bi-pap Weight: 86.1 kg Body Mass Index (BMI) 32.9 Intake and Output for Last 24 Hours 07/12/18 07/13/18 07/14/18 23:59 23:59 23:59 Intake Total 2098 399 / 399 Balance 2098 399 / 399 Laboratory Tests Past 24 Hrs 10/24/17 10/25/17 10/25/17 12:38 05:30 05:30 WBC 10.0 RBC 3.60 L Hgb 8.7 L Hct 33.0 L MCV 91.7 MCH 24.2 L MCHC 26.4 L RDW 18.1 H RDW Differential 61.1 H Plt Count 240 MPV 11.1 Immature Gran % (Auto) 0.100 Neut % (Auto) 76.7 H Lymph % (Auto) 13.8 L [place] % (Auto) 6.2 Eos % (Auto) 3.0 Baso % (Auto) 0.2 Absolute Neuts (auto) 7.7 Absolute Lymphs (auto) 1.38 Total Counted Not Reportable Specimen Type ART Sample Site R Radial pH 7.48 H Bicarbonate Actual 40.4 H POC Total CO2 42 Base Excess 17 H O2 Saturation 88 L ABG pCO2 54.4 H ABG pO2 52 L Skyler Test POS O2 Delivery Device Nasal Can Liter Flow 6.0 Blood Gas Notified Whom HOSP Blood Gas Notified Time 1227 Sodium 147 H Potassium 3.5 Chloride 103 Carbon Dioxide 39.0 H Anion Gap 5 BUN 31 H Creatinine 1.25 H Estim Creat Clear Calc 30.48 Est GFR (MDRD) Af Amer 53 L Est GFR (MDRD) Non-Af 44 L BUN/Creatinine Ratio 24.8 H Glucose 39 L* Calcium 8.5 POC Glucose 10/24/17 10/24/17 10/24/17 22:37 16:38 11:53 POC Glucose 250 H 149 H 86 Medical Necessity - Tobacco Use Smoking Status: Never smoker Assessment/Plan All Active Problems (Last Reviewed 10/17/17 @ 01:46 by Campos Aquino DO) CAP (community acquired pneumonia) (Acute) NSTEMI (non-ST elevated myocardial infarction) (Acute) Acute on chronic respiratory failure with hypoxia and hypercapnia (Acute) Acute on chronic combined systolic and diastolic heart failure (Acute) Acute kidney injury superimposed on chronic kidney disease (Resolved) Acute respiratory failure with hypoxia (Resolved) COPD exacerbation (Resolved) Chest pain (Resolved) Fall (Resolved) Hyperkalemia (Resolved) RECOMMENDATIONS 1. Wean oxygen supplementation to keep saturations 88-92%. 2. Encourage incentive spirometer and increased activity as tolerated 3. Decrease Lantus therapy 5. Continue diuresis, monitor renal function daily may need to decrease dose 6. Encourage BiPAP with breaks as tolerated during the day, continue at night and with sleep 7. Ambulatory pulse ox prior to discharge 8. Unclear when last sleep study was, patient would benefit from polysomnogram as an outpatient 9. Patient can follow-up in the pulmonary clinic in 2 weeks at which time testing can be arranged IMPRESSIONS 1. Acute on chronic hypoxic and hypercarbic respiratory failure secondary to CHF exacerbation in the setting of elevated troponins Patient appears to be responding well to BiPAP therapy. Continue to encourage patient to take breaks during the day while awake. Would continue with BiPAP with sleep as patient has a high clinical likelihood of having obstructive sleep apnea. Patient appears to be tolerating aggressive diuresis well with stable creatinine. Continue to wean oxygen as tolerated. Patient should have a walking oximetry prior to discharge. Do anticipate supplemental oxygen will be required on discharge. 2. Non-STEMI Heart catheterization reportedly planned for today. Cardiology is following. 3. History of A. fib/CAD/type 2 diabetes mellitus/CKD stage III/anemia Complicates care, management, recovery, and prognosis. Continue home medications as indicated. Renal is following. Patient's Lantus therapy will be decreased given hypoglycemia this morning. Thank you for the opportunity to participate in this patient's care, please do not hesitate contact us with any further questions or concerns. This note was generated with [email or web address] dictation software. It may contain incorrect words, spelling, and punctuation that were not noted in checking the note before signing. Code Visit Inpatient E&M: 05[facility]
[2017-10-25] MEDS: Dextrose 50%-Water 25 GM/50 ML DISP.SYRIN IV (07:38)
--- NOTE | 2017-10-25 07:46 | NURSING ---
Pt blood sugar checked this AM and was 43. Pt was given 120 mL of thickened OJ, some jello, and some milk. Pt blood sugar was rechecked approx. 13 minutes later and was only 50. Dr. Ny was notified. He said to give the pt 1/2 amp of D50. He also said to decrease pt's Lantus to 25 units instead of 30 units. Pt was given 1/2 amp of D50 by this RN. The dayshift RN to recheck pt's blood sugar around 0800.
[2017-10-25] MEDS: APIXABAN 2.5 MG TABLET PO ×2 (07:56→21:37)
[2017-10-25] MEDS: Calcium Carb/Vitamin D 1 TABLET Tablet PO ×2 (07:56→21:37)
[2017-10-25] MEDS: Furosemide 40 MG Tablet PO (07:56)
[2017-10-25] MEDS: AcetaZOLAMIDE 250 MG Tablet PO ×2 (07:57→21:36)
[2017-10-25] MEDS: Aspirin E.C. 81 MG Tablet PO (07:57)
[2017-10-25] MEDS: Multivitamins,Therapeutic Tablet 1 TABLET PO (07:57)
[2017-10-25] MEDS: Pantoprazole Sodium 40 MG Tablet PO (07:57)
[2017-10-25] MEDS: Metoprolol Tartrate 25 MG Tablet PO ×2 (08:01→21:38)
[2017-10-25] MEDS: amLODIPine 5 MG Tablet PO (08:01)
[2017-10-25] MEDS: Isosorbide Mononitrate 30 MG Tablet PO (08:01)
--- NOTE | 2017-10-25 08:18 | CPS ---
pt decreased to 4 lpm....sat 94%
[2017-10-25 08:31] LABS: Bedside Glucose 147 mg/dL (70-110)
--- NOTE | 2017-10-25 08:42 | PN.CARD_ITS ---
Subjectve: Patient seen and evaluated. Appears to be doing better this morning. She is eating ravenously. Objective: Vital Signs Temp Pulse Resp BP Pulse Ox 96.9 F L 63 18 147/61 H 94 10/25/17 08:02 10/25/17 08:02 10/25/17 08:02 10/25/17 08:02 10/25/17 08:02 Oxygen Flow Rate (L/min) 2 Oxygen Delivery Method Nasal Cannula Weight: 189 lb 13.088 oz Body Mass Index (BMI) 32.9 Intake and Output for Last 24 Hours 10/23/17 10/24/17 10/25/17 23:59 23:59 23:59 Intake Total 2098 399 / 399 Balance 2098 399 / 399 General: Awake, Alert, Oriented x 3 HEENT: PERRL, EOMI, Sclera Non Icteric Neck: Supple, Good ROM, No Lymph Node Enlargement Lungs: Clear to auscultation Cardiovascular: Regular Rhythm, Normal S1, Normal S2, No Murmurs, No Rubs, No Gallops Vascular: No Carotid Bruits, Normal Femoral Pulses, Normal Radial Pulses, Normal Dorsalis Pedal Pulse, Normal Posterior Tibial Pulses Abdomen: Bowel Sounds Present, Soft, Non Tender, No HSM, No Organomegaly Extremities: No Cyanosis, No Clubbing, No edema Neurological: No Focal Motor or Sensory Deficit 10/24/17 12:38: pH 7.48 H, Bicarbonate Actual 40.4 H, POC Total CO2 42, Base Excess 17 H, O2 Saturation 88 L, ABG pCO2 54.4 H, ABG pO2 52 L, Skyler Test POS 10/25/17 05:30: WBC 10.0, RBC 3.60 L, Hgb 8.7 L, Hct 33.0 L, MCV 91.7, MCH 24.2 L, MCHC 26.4 L, RDW 18.1 H, RDW Differential 61.1 H, Plt Count 240, MPV 11.1, Immature Gran % (Auto) 0.100, Neut % (Auto) 76.7 H, Lymph % (Auto) 13.8 L, Garrett % (Auto) 6.2, Eos % (Auto) 3.0, Baso % (Auto) 0.2, Absolute Neuts (auto) 7.7, Total Counted Not Reportable 10/25/17 05:30: Sodium 147 H, Potassium 3.5, Chloride 103, Carbon Dioxide 39.0 H , Anion Gap 5, BUN 31 H, Creatinine 1.25 H, Est GFR (MDRD) Af Amer 53 L, Est GFR (MDRD) Non-Af 44 L, BUN/Creatinine Ratio 24.8 H, Glucose 39 L*, Calcium 8.5 Rhythm: EKG: ECHO: Stress Test: Cardiac Cath: PCI: CT Surgery: Holter monitor: EPS: PPM: CXR: Chest CT Scan: Medical Necessity - Tobacco Use Smoking Status: Never smoker Assessment/Plan 1. Non-ST elevation myocardial infarction * She presents with shortness of breath and now has a non-ST elevation myocardial infarction. * She underwent a cardiac catheterization which demonstrated significant triple- vessel disease. 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 Her left main coronary artery disease left internal mammary artery to the left anterior descending artery is patent and the saphenous vein graft to the circumflex artery is patent. The saphenous vein graft to diagonal branch is occluded and she has mashpee right coronary artery disease. Please see report for full details. * Would recommend outpatient stress and viability study to help us determine which areas revascularization would be beneficial * 2. Acute congestive heart failure-diastolic * She presents with shortness of breath and appears to be in congestive heart failure. She improves with diuresis. The above is likely secondary to a combination of coronary artery disease as well as her atrial fibrillation. * Her echocardiogram demonstrates EF 45%-50%. * 3. Hypertension * High blood pressure appears to be normal. * 4. Paroxysmal atrial fibrillation. * She does appear to have the above with a controlled ventricular response rate. * She will be restarted on her Eliquis. 5. Hyperlipidemia * She will continue with aggressive risk factor modification. * * Thank you for allowing me to participate in the care of your patient. Please don't hesitate to call if any issues arise. From my standpoint she can be discharged for outpatient follow-up.
[2017-10-25 12:31] LABS: Bedside Glucose 138 mg/dL (70-110)
--- NOTE | 2017-10-25 13:01 | PCM.PROGNOTE ---
<Flaco Minor - Last Filed: 10/25/17 13:01> Patient Problems: Active and Suspected Problems (Last Reviewed 10/17/17 @ 01:46 by Campos Aquino DO) CAP (community acquired pneumonia) (Acute) NSTEMI (non-ST elevated myocardial infarction) (Acute) Acute on chronic respiratory failure with hypoxia and hypercapnia (Acute) Subjective: Pt is resting comfortably in chair at bedside with no acute issues, just finished speech therapy who is planning on advancing her diet to thin liquids. She complains of no difficulty swallowing at this time. She has no chest pain, no shortness of breath, no tightness or pressure on her chest. No dizziness or lightheadedness, no palpitations. She has no nausea or vomiting. She is waiting for placement. - Physical Exam General: Alert, Oriented x3, Cooperative HEENT: Atraumatic, PERRLA, EOMI, Normocephalic Neck: Supple, No JVD, Negative Carotid Bruits Lungs: Clear to auscultation, Normal air movement Cardiovascular: Regular rate, No murmurs Abdomen: Bowel Sounds Present, Soft, Non Tender Extremities: No edema, Capillary Refill Less than 3 Seconds Skin: No rashes, No breakdown Musculoskeletal: No Tenderness to Palpation of Joints or Extremities Neurological: Cranial nerves II-XII grossly intact Psych/Mental Status: Normal Affect, Appropriate, Alert and oriented to time, place, person, mood and affect Vital Signs Temp Pulse Resp BP Pulse Ox 96.9 F L 63 18 147/61 H 94 10/25/17 08:02 10/25/17 08:02 10/25/17 08:02 10/25/17 08:02 10/25/17 08:02 Oxygen Flow Rate (L/min) 2 Oxygen Delivery Method Nasal Cannula Weight: 86.1 kg Body Mass Index (BMI) 32.9 Intake and Output for Last 24 Hours 10/23/17 10/24/17 10/25/17 23:59 23:59 23:59 Intake Total 2098 1191 / 1191 Balance 2098 1191 / 1191 Laboratory Tests Past 24 Hrs 10/25/17 10/25/17 05:30 05:30 WBC 10.0 RBC 3.60 L Hgb 8.7 L Hct 33.0 L MCV 91.7 MCH 24.2 L MCHC 26.4 L RDW 18.1 H RDW Differential 61.1 H Plt Count 240 MPV 11.1 Immature Gran % (Auto) 0.100 Neut % (Auto) 76.7 H Lymph % (Auto) 13.8 L [place] % (Auto) 6.2 Eos % (Auto) 3.0 Baso % (Auto) 0.2 Absolute Neuts (auto) 7.7 Absolute Lymphs (auto) 1.38 Total Counted Not Reportable Sodium 147 H Potassium 3.5 Chloride 103 Carbon Dioxide 39.0 H Anion Gap 5 BUN 31 H Creatinine 1.25 H Estim Creat Clear Calc 30.48 Est GFR (MDRD) Af Amer 53 L Est GFR (MDRD) Non-Af 44 L BUN/Creatinine Ratio 24.8 H Glucose 39 L* Calcium 8.5 POC Glucose 10/25/17 10/25/17 10/24/17 12:17 08:12 22:37 POC Glucose 138 H 147 H 250 H 10/24/17 16:38 POC Glucose 149 H Medical Necessity - Tobacco Use Smoking Status: Never smoker Assessment/Plan All Active Problems (Last Reviewed 10/17/17 @ 01:46 by Campos Aquino DO) CAP (community acquired pneumonia) (Acute) NSTEMI (non-ST elevated myocardial infarction) (Acute) Acute on chronic respiratory failure with hypoxia and hypercapnia (Acute) Acute on chronic combined systolic and diastolic heart failure (Acute) Acute kidney injury superimposed on chronic kidney disease (Resolved) Acute respiratory failure with hypoxia (Resolved) COPD exacerbation (Resolved) Chest pain (Resolved) Fall (Resolved) Hyperkalemia (Resolved) 1. Acute CHF exacerbation , intermediate EF, ischemic cardiomyopathy - Improved. No SOB. No significant edema. Echo EF 45%. PASP 59 mmHg, mod pulm htn. Ppost contraction alkalosis. 2. NSTEMI - stable. No CP. On norvasc, statin, Asa, BB, imdur. Allergic to LEANDER. s/p cath, no intervention. Outpatient Stress test. 3. HTN - stable. per cardiology high is normal. 4. PAF - eliquis, rate controlled 5. CKD III - stable. 6. DMt2 - long acting + SSI, was low this AM. Stable now. Goal 130. DVT ppx: sofia RYAN planning: waiting for SNF precert. This patient was seen by Flaco Minor PA-C under the supervision of Doctor Constanza. <Richa Apodaca - Last Filed: 10/25/17 13:47> - Physical Exam Vital Signs Temp Pulse Resp BP Pulse Ox 96.9 F L 63 18 147/61 H 94 10/25/17 08:02 10/25/17 08:02 10/25/17 08:02 10/25/17 08:02 10/25/17 08:02 Oxygen Flow Rate (L/min) 2 Oxygen Delivery Method Nasal Cannula Weight: 86.1 kg Body Mass Index (BMI) 32.9 Intake and Output for Last 24 Hours 10/23/17 10/24/17 10/25/17 23:59 23:59 23:59 Intake Total 2098 1191 / 1191 Balance 2098 1191 / 1191 Laboratory Tests Past 24 Hrs 10/25/17 10/25/17 05:30 05:30 WBC 10.0 RBC 3.60 L Hgb 8.7 L Hct 33.0 L MCV 91.7 MCH 24.2 L MCHC 26.4 L RDW 18.1 H RDW Differential 61.1 H Plt Count 240 MPV 11.1 Immature Gran % (Auto) 0.100 Neut % (Auto) 76.7 H Lymph % (Auto) 13.8 L [place] % (Auto) 6.2 Eos % (Auto) 3.0 Baso % (Auto) 0.2 Absolute Neuts (auto) 7.7 Absolute Lymphs (auto) 1.38 Total Counted Not Reportable Sodium 147 H Potassium 3.5 Chloride 103 Carbon Dioxide 39.0 H Anion Gap 5 BUN 31 H Creatinine 1.25 H Estim Creat Clear Calc 30.48 Est GFR (MDRD) Af Amer 53 L Est GFR (MDRD) Non-Af 44 L BUN/Creatinine Ratio 24.8 H Glucose 39 L* Calcium 8.5 POC Glucose 10/25/17 10/25/17 10/24/17 12:17 08:12 22:37 POC Glucose 138 H 147 H 250 H 10/24/17 16:38 POC Glucose 149 H Assessment/Plan Patient seen and examined. I agree with the interval history and physical exam as documented by IRENE Kay. Patient feels well, denies any chest pain or worsening shortness of breath. Appears comfortable in the chair and on 2 L of oxygen. No acute events according to nurses. Vitals appear stable. Physical exam is significant for diminished air entry generally but worse in the bases. No leg edema. Labs show chronic anemia with hemoglobin of 8.7, hyponatremia his sodium 147, improved creatinine to 1.25. Hypoglycemia this am with BS 39. Will decrease Lantus to 20 units BID Will stop normal saline Repeat BMP at 5p.m. to trend hypernatremia Labs in am Code Visit Inpatient E&M: 86021 Subs Hosp L2
[2017-10-25 17:28] LABS: Anion Gap 6 (5-15); BUN 30 mg/dL (7-18); BUN/Creat Ratio 18.2 RATIO (10-20); Calcium,Total 8.6 mg/dL (8.5-10.1); Chloride 103 mmol/L (98-107); Creatinine, Serum 1.65 mg/dL (0.55-1.02); EST Glomerular Filtration Rate 32 mL/min (>60); Est Glom Filt Rate - Afr Amer 38 mL/min (>60); Estimated Creatinine Clearance 23.09 ml/min; Glucose 136 mg/dL (74-106); Potassium 3.7 mmol/L (3.5-5.1); Sodium Level 142 mmol/L (136-145)
[2017-10-25 17:46] LABS: Bedside Glucose 143 mg/dL (70-110)
[2017-10-25] MEDS: Atorvastatin Calcium 40 MG Tablet PO (21:37)
[2017-10-25] MEDS: Mirtazapine 15 MG Tablet PO (21:37)
[2017-10-25] MEDS: Insulin Lispro 100 UNIT/ML INSULN.PEN SC (21:38)
[2017-10-25 22:06] LABS: Bedside Glucose 180 mg/dL (70-110)
[2017-10-26] VITALS (17 sets, daily range): BP systolic 125–155; BP diastolic 52–70; PULSE 54–71; RESP 12–23; TEMP 36.4–37.2; O2SAT 89–100
[2017-10-26 05:53] LABS: Basophil# 0.03 X10^3/uL; Basophil% 0.3 % (0-1); Eosinophil# 0.17 X10^3/uL; Eosinophils% 1.7 % (0-5); Hematocrit 34.4 % (37-47); Hemoglobin 9.1 g/dl (12.0-15.0); Lymphocyte % 12.1 % (19-41); Mean Corp Hgb Conc 26.5 g/gl (32-36); Mean Corpuscular Hgb 24.1 pg (27.0-32.0); Mean Platelet Vol. 11.4 fl (6.2-12.0); Monocyte# 0.56 X10^3/uL; Monocyte% 5.6 % (0-10); Neutrophil # 7.96 X10^3/uL (2.7-7.7); Neutrophil % 80.2 % (47-70); Platelet Count 286 K/mm3 (150-450); RBC Distribution Width CV 18.2 % (11.6-14.6); RBC Distribution Width SD 60.2 fl (35.1-43.9); Red Blood Count 3.78 M/mm3 (4.2-5.4); White Blood Count 9.9 K/mm3 (4.4-11.0)
[2017-10-26 05:57] LABS: POSITIVE COUNT NO; POSITIVE DIFFERENTIAL NO; POSITIVE MORPHOLOGY NO
[2017-10-26 06:24] LABS: Anion Gap 6 (5-15); BUN 32 mg/dL (7-18); BUN/Creat Ratio 21.5 RATIO (10-20); Calcium,Total 8.9 mg/dL (8.5-10.1); Chloride 103 mmol/L (98-107); Creatinine, Serum 1.49 mg/dL (0.55-1.02); EST Glomerular Filtration Rate 36 mL/min (>60); Est Glom Filt Rate - Afr Amer 43 mL/min (>60); Estimated Creatinine Clearance 25.57 ml/min; Glucose 157 mg/dL (74-106); Sodium Level 141 mmol/L (136-145)
[2017-10-26 07:00] LABS: Bedside Glucose 157 mg/dL (70-110)
--- NOTE | 2017-10-26 08:12 | PCM.PROGNOTE ---
Patient Problems: Active and Suspected Problems (Last Reviewed 10/17/17 @ 01:46 by Campos Aquino DO) CAP (community acquired pneumonia) (Acute) NSTEMI (non-ST elevated myocardial infarction) (Acute) Acute on chronic respiratory failure with hypoxia and hypercapnia (Acute) Subjective: Patient did well overnight. No acute issues were reported. Patient supplemental oxygen demands continue to improve during the day. Patient is compliant with BiPAP therapy overnight. No complaints from patient this morning. - Physical Exam General: Alert, Cooperative, No apparent distress, - - Obese. Speaking in full sentences. HEENT: Atraumatic, PERRLA, EOMI, Normocephalic, - - No scleral icterus or injection noted. Oral: Moist Mucosa, No Gingival or Mucosal Lesions/ Ulcerations, - - Poor dentition Neck: Supple, No JVD, No Nodes, Trachea Midline Lungs: No rhonchi, No wheeze, No rales, Diminished, - - Symmetric expansion. Cardiovascular: Regular rate, Regular Rhythm, Normal S1, Normal S2, No murmurs, No rub noted, No Gallop Abdomen: Bowel Sounds Present, Soft, Non Tender, Non-Distended, Obese Extremities: No clubbing, No cyanosis, No edema, Capillary Refill Less than 3 Seconds Skin: - - No significant change compared to previous Musculoskeletal: No Tenderness to Palpation of Joints or Extremities Lymphatic: No Cervical, Supraclavicular, or Inguinal Adenopathy Neurological: Cranial nerves II-XII grossly intact, Neuro grossly intact, Motor Exam 5/5 strength throughout Psych/Mental Status: Normal Affect, Appropriate Vital Signs Temp Pulse Resp BP Pulse Ox 36.6 C 69 16 140/64 H 98 10/26/17 04:53 10/26/17 06:59 10/26/17 04:53 10/26/17 04:53 10/26/17 04:53 Oxygen Flow Rate (L/min) 3 Oxygen Delivery Method Bi-pap Weight: 85.5 kg Body Mass Index (BMI) 32.9 Intake and Output for Last 24 Hours 10/24/17 10/25/17 10/26/17 23:59 23:59 23:59 Intake Total 2018 0 / 0 Balance 2018 0 / 0 Laboratory Tests Past 24 Hrs 10/25/17 10/26/17 10/26/17 16:55 05:21 05:21 WBC 9.9 RBC 3.78 L Hgb 9.1 L Hct 34.4 L MCV 91.0 MCH 24.1 L MCHC 26.5 L RDW 18.2 H RDW Differential 60.2 H Plt Count 286 MPV 11.4 Immature Gran % (Auto) 0.100 Neut % (Auto) 80.2 H Lymph % (Auto) 12.1 L [place] % (Auto) 5.6 Eos % (Auto) 1.7 Baso % (Auto) 0.3 Absolute Neuts (auto) 8.0 H Absolute Lymphs (auto) 1.20 Total Counted Not Reportable Sodium 142 141 Potassium 3.7 4.0 Chloride 103 103 Carbon Dioxide 33.0 H 32.0 Anion Gap 6 6 BUN 30 H 32 H Creatinine 1.65 H 1.49 H Estim Creat Clear Calc 23.09 25.57 Est GFR (MDRD) Af Amer 38 L 43 L Est GFR (MDRD) Non-Af 32 L 36 L BUN/Creatinine Ratio 18.2 21.5 H Glucose 136 H 157 H Calcium 8.6 8.9 POC Glucose 10/26/17 10/25/17 10/25/17 06:48 21:12 17:10 POC Glucose 157 H 180 H 143 H 10/25/17 10/25/17 12:17 08:12 POC Glucose 138 H 147 H Medical Necessity - Tobacco Use Smoking Status: Never smoker Assessment/Plan All Active Problems (Last Reviewed 10/17/17 @ 01:46 by Campos Aquino DO) CAP (community acquired pneumonia) (Acute) NSTEMI (non-ST elevated myocardial infarction) (Acute) Acute on chronic respiratory failure with hypoxia and hypercapnia (Acute) Acute on chronic combined systolic and diastolic heart failure (Acute) Acute kidney injury superimposed on chronic kidney disease (Resolved) Acute respiratory failure with hypoxia (Resolved) COPD exacerbation (Resolved) Chest pain (Resolved) Fall (Resolved) Hyperkalemia (Resolved) RECOMMENDATIONS 1. Wean oxygen supplementation to keep saturations 88-92%. 2. Encourage incentive spirometer and increased activity as tolerated 3. Continue Lantus therapy at current dosing 5. Continue diuresis, monitor renal function daily 6. Encourage BiPAP at night and with sleep 7. Ambulatory pulse ox prior to discharge 8. Unclear when last sleep study was, patient would benefit from polysomnogram as an outpatient 9. Patient can follow-up in the pulmonary clinic in 2 weeks at which time testing can be arranged IMPRESSIONS 1. Acute on chronic hypoxic and hypercarbic respiratory failure secondary to CHF exacerbation in the setting of elevated troponins Patient appears to be responding well to BiPAP therapy with sleeping. She has not been requiring this during the day. Would continue with BiPAP with sleep as patient has a high clinical likelihood of having obstructive sleep apnea. Patient appears to be tolerating aggressive diuresis well with stable creatinine. Continue to wean oxygen as tolerated. Patient should have a walking oximetry prior to discharge. Do anticipate supplemental oxygen will be required on discharge, at least with exertion. 2. Non-STEMI No intervention with heart catheterization during this hospitalization. Cardiology is following. 3. History of A. fib/CAD/type 2 diabetes mellitus/CKD stage III/anemia Complicates care, management, recovery, and prognosis. Continue home medications as indicated. Renal is following. Patient's blood sugars are more appropriate this morning following decrease in Lantus dosing. Thank you for the opportunity to participate in this patient's care, please do not hesitate contact us with any further questions or concerns. This note was generated with [facility] [employer] dictation software. It may contain incorrect words, spelling, and punctuation that were not noted in checking the note before signing. Code Visit Inpatient E&M: 86010 Subs Hosp L2
[2017-10-26] MEDS: Insulin Lispro 100 UNIT/ML INSULN.PEN SC (08:16)
--- NOTE | 2017-10-26 08:36 | PN.CARD_ITS ---
Subjectve: Patient seen and evaluated. Appears to be stable. Objective: Vital Signs Temp Pulse Resp BP Pulse Ox 97.9 F 69 16 140/64 H 98 10/26/17 04:53 10/26/17 06:59 10/26/17 04:53 10/26/17 04:53 10/26/17 04:53 Oxygen Flow Rate (L/min) 3 Oxygen Delivery Method Bi-pap Weight: 188 lb 7.924 oz Body Mass Index (BMI) 32.9 Intake and Output for Last 24 Hours 10/24/17 10/25/17 10/26/17 23:59 23:59 23:59 Intake Total 2018 0 / 0 Balance 2018 0 / 0 General: Awake, Alert, Oriented x 3 HEENT: PERRL, EOMI, Sclera Non Icteric Neck: Supple, Good ROM, No Lymph Node Enlargement Lungs: Clear to auscultation Cardiovascular: Regular Rhythm, Normal S1, Normal S2, No Murmurs, No Rubs, No Gallops Vascular: No Carotid Bruits, Normal Femoral Pulses, Normal Radial Pulses, Normal Dorsalis Pedal Pulse, Normal Posterior Tibial Pulses Abdomen: Bowel Sounds Present, Soft, Non Tender, No HSM, No Organomegaly Extremities: No Cyanosis, No Clubbing, No edema Neurological: No Focal Motor or Sensory Deficit 10/25/17 16:55: Sodium 142, Potassium 3.7, Chloride 103, Carbon Dioxide 33.0 H, Anion Gap 6, BUN 30 H, Creatinine 1.65 H, Est GFR (MDRD) Af Amer 38 L, Est GFR ( MDRD) Non-Af 32 L, BUN/Creatinine Ratio 18.2, Glucose 136 H, Calcium 8.6 10/26/17 05:21: WBC 9.9, RBC 3.78 L, Hgb 9.1 L, Hct 34.4 L, MCV 91.0, MCH 24.1 L , MCHC 26.5 L, RDW 18.2 H, RDW Differential 60.2 H, Plt Count 286, MPV 11.4, Immature Gran % (Auto) 0.100, Neut % (Auto) 80.2 H, Lymph % (Auto) 12.1 L, [place] % (Auto) 5.6, Eos % (Auto) 1.7, Baso % (Auto) 0.3, Absolute Neuts (auto) 8.0 H, Total Counted Not Reportable 10/26/17 05:21: Sodium 141, Potassium 4.0, Chloride 103, Carbon Dioxide 32.0, Anion Gap 6, BUN 32 H, Creatinine 1.49 H, Est GFR (MDRD) Af Amer 43 L, Est GFR ( MDRD) Non-Af 36 L, BUN/Creatinine Ratio 21.5 H, Glucose 157 H, Calcium 8.9 Rhythm: EKG: ECHO: Stress Test: Cardiac Cath: PCI: CT Surgery: Holter monitor: EPS: PPM: CXR: Chest CT Scan: Medical Necessity - Tobacco Use Smoking Status: Never smoker Assessment/Plan 1. Non-ST elevation myocardial infarction * She presents with shortness of breath and now has a non-ST elevation myocardial infarction. * She underwent a cardiac catheterization which demonstrated significant triple- vessel disease. 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 Her left main coronary artery disease left internal mammary artery to the left anterior descending artery is patent and the saphenous vein graft to the circumflex artery is patent. The saphenous vein graft to diagonal branch is occluded and she has cowlitz right coronary artery disease. Please see report for full details. * Would recommend outpatient stress and viability study to help us determine which areas revascularization would be beneficial * 2. Acute congestive heart failure-diastolic * She presents with shortness of breath and appears to be in congestive heart failure. She improves with diuresis. The above is likely secondary to a combination of coronary artery disease as well as her atrial fibrillation. * Her echocardiogram demonstrates EF 45%-50%. * 3. Hypertension * High blood pressure appears to be normal. * 4. Paroxysmal atrial fibrillation. * She does appear to have the above with a controlled ventricular response rate. * She will be restarted on her Eliquis. 5. Hyperlipidemia * She will continue with aggressive risk factor modification. * * Thank you for allowing me to participate in the care of your patient. Please don't hesitate to call if any issues arise. No changes noted since she was last evaluated .
[2017-10-26] MEDS: Calcium Carb/Vitamin D 1 TABLET Tablet PO ×2 (10:25→21:59)
[2017-10-26] MEDS: Pantoprazole Sodium 40 MG Tablet PO (10:25)
[2017-10-26] MEDS: Metoprolol Tartrate 25 MG Tablet PO ×2 (10:25→21:58)
[2017-10-26] MEDS: amLODIPine 5 MG Tablet PO (10:25)
[2017-10-26] MEDS: Multivitamins,Therapeutic Tablet 1 TABLET PO (10:26)
[2017-10-26] MEDS: APIXABAN 2.5 MG TABLET PO ×2 (10:26→21:58)
[2017-10-26] MEDS: Isosorbide Mononitrate 30 MG Tablet PO (10:26)
[2017-10-26] MEDS: Aspirin E.C. 81 MG Tablet PO (10:26)
[2017-10-26 11:31] LABS: Bedside Glucose 108 mg/dL (70-110)
--- NOTE | 2017-10-26 11:55 | CPS ---
pt increased to 3 lpm....sat to 90%
--- NOTE | 2017-10-26 13:56 | PN_ITS ---
<Flaco Minor - Last Filed: 10/26/17 13:54> Patient Problems: Active and Suspected Problems (Last Reviewed 10/17/17 @ 01:46 by Campos Aquino DO) CAP (community acquired pneumonia) (Acute) NSTEMI (non-ST elevated myocardial infarction) (Acute) Acute on chronic respiratory failure with hypoxia and hypercapnia (Acute) Subjective: No complaints. Resting comfortably in bed. Did well overnight with BiPAP. No chest pain, shortness of breath, tightness, heaviness, swelling of her legs. Tolerating advance diet to clear liquids. - Physical Exam General: Alert, Oriented x3, Cooperative HEENT: Atraumatic, PERRLA, EOMI, Normocephalic Neck: Supple, No JVD, Negative Carotid Bruits Lungs: Diminished Cardiovascular: Regular rate, No murmurs Abdomen: Bowel Sounds Present, Soft, Non Tender Extremities: No edema, Capillary Refill Less than 3 Seconds Skin: No rashes, No breakdown Musculoskeletal: No Tenderness to Palpation of Joints or Extremities Neurological: Cranial nerves II-XII grossly intact Psych/Mental Status: Normal Affect, Appropriate Vital Signs Temp Pulse Resp BP Pulse Ox 97.6 F L 61 18 155/70 H 89 10/26/17 10:25 10/26/17 10:59 10/26/17 10:25 10/26/17 10:25 10/26/17 11:00 Oxygen Flow Rate (L/min) 3 Oxygen Delivery Method Nasal Cannula Weight: 85.5 kg Body Mass Index (BMI) 32.9 Intake and Output for Last 24 Hours 10/24/17 10/25/17 10/26/17 23:59 23:59 23:59 Intake Total 2018 178 60 / 60 Balance 2018 60 / 60 Laboratory Tests Past 24 Hrs 10/25/17 10/26/17 10/26/17 16:55 05:21 05:21 WBC 9.9 RBC 3.78 L Hgb 9.1 L Hct 34.4 L MCV 91.0 MCH 24.1 L MCHC 26.5 L RDW 18.2 H RDW Differential 60.2 H Plt Count 286 MPV 11.4 Immature Gran % (Auto) 0.100 Neut % (Auto) 80.2 H Lymph % (Auto) 12.1 L [place] % (Auto) 5.6 Eos % (Auto) 1.7 Baso % (Auto) 0.3 Absolute Neuts (auto) 8.0 H Absolute Lymphs (auto) 1.20 Total Counted Not Reportable Sodium 142 141 Potassium 3.7 4.0 Chloride 103 103 Carbon Dioxide 33.0 H 32.0 Anion Gap 6 6 BUN 30 H 32 H Creatinine 1.65 H 1.49 H Estim Creat Clear Calc 23.09 25.57 Est GFR (MDRD) Af Amer 38 L 43 L Est GFR (MDRD) Non-Af 32 L 36 L BUN/Creatinine Ratio 18.2 21.5 H Glucose 136 H 157 H Calcium 8.6 8.9 POC Glucose 10/26/17 10/26/17 10/25/17 11:26 06:48 21:12 POC Glucose 108 157 H 180 H 10/25/17 17:10 POC Glucose 143 H Medical Necessity - Tobacco Use Smoking Status: Never smoker Assessment/Plan All Active Problems (Last Reviewed 10/17/17 @ 01:46 by Campos Aquino DO) CAP (community acquired pneumonia) (Acute) NSTEMI (non-ST elevated myocardial infarction) (Acute) Acute on chronic respiratory failure with hypoxia and hypercapnia (Acute) Acute on chronic combined systolic and diastolic heart failure (Acute) Acute kidney injury superimposed on chronic kidney disease (Resolved) Acute respiratory failure with hypoxia (Resolved) COPD exacerbation (Resolved) Chest pain (Resolved) Fall (Resolved) Hyperkalemia (Resolved) 1. Acute CHF exacerbation , intermediate EF, ischemic cardiomyopathy - Improved. No SOB. No significant edema. Echo EF 45%. PASP 59 mmHg, mod pulm htn. contraction alkalosis. 2. NSTEMI - stable. No CP. On norvasc, statin, Asa, BB, imdur. Allergic to LEANDER. s/p cath, no intervention. Outpatient Stress test. 3. HTN - stable. per cardiology high is normal. 4. PAF - eliquis, rate controlled. Is mildly tachycardic in the morning before receiving her metoprolol. Appears to be well-controlled otherwise. 5. CKD III - stable. 6. DMt2 - long acting + SSI, was low this AM. Stable now. Goal 130. DVT ppx: sofia RYAN planning: waiting for SNF precert. This patient was seen by Flaco Minor PA-C under the supervision of Doctor Constanza. <Richa Apodaca - Last Filed: 10/26/17 16:38> - Physical Exam Vital Signs Temp Pulse Resp BP Pulse Ox 97.6 F L 68 18 155/70 H 89 10/26/17 10:25 10/26/17 14:59 10/26/17 10:25 10/26/17 10:25 10/26/17 11:00 Oxygen Flow Rate (L/min) 3 Oxygen Delivery Method Nasal Cannula Weight: 85.5 kg Body Mass Index (BMI) 32.9 Intake and Output for Last 24 Hours 10/24/17 10/25/17 10/26/17 23:59 23:59 23:59 Intake Total 2018 60 60 Balance 2018 60 60 Laboratory Tests Past 24 Hrs 10/25/17 10/26/17 10/26/17 16:55 05:21 05:21 WBC 9.9 RBC 3.78 L Hgb 9.1 L Hct 34.4 L MCV 91.0 MCH 24.1 L MCHC 26.5 L RDW 18.2 H RDW Differential 60.2 H Plt Count 286 MPV 11.4 Immature Gran % (Auto) 0.100 Neut % (Auto) 80.2 H Lymph % (Auto) 12.1 L [place] % (Auto) 5.6 Eos % (Auto) 1.7 Baso % (Auto) 0.3 Absolute Neuts (auto) 8.0 H Absolute Lymphs (auto) 1.20 Total Counted Not Reportable Sodium 142 141 Potassium 3.7 4.0 Chloride 103 103 Carbon Dioxide 33.0 H 32.0 Anion Gap 6 6 BUN 30 H 32 H Creatinine 1.65 H 1.49 H Estim Creat Clear Calc 23.09 25.57 Est GFR (MDRD) Af Amer 38 L 43 L Est GFR (MDRD) Non-Af 32 L 36 L BUN/Creatinine Ratio 18.2 21.5 H Glucose 136 H 157 H Calcium 8.6 8.9 POC Glucose 10/26/17 10/26/17 10/25/17 11:26 06:48 21:12 POC Glucose 108 157 H 180 H 10/25/17 17:10 POC Glucose 143 H Assessment/Plan Patient was seen and examined independently. I agree with interval history and physical exam and assessment and plan as documented by physician assistant womens volleyball coach Flaco Minor. No acute events overnight. Patient denies any complaints. Been sleeping for the most part of the morning. Denied any chest pain no dizziness or palpitations. Vitals appears stable with slightly elevated blood pressure. Laboratory investigation shows improvement in her BMP and also creatinine, down to 1.49 from 1.65. Medications reviewed. We will wait on insurance precertification for discharge Code Visit Inpatient E&M: 98995 Subs Hosp L2
[2017-10-26 16:41] LABS: Bedside Glucose 138 mg/dL (70-110)
--- NOTE | 2017-10-26 17:29 | PN.RENAL_ITS ---
Patient Problems: Active and Suspected Problems (Last Reviewed 10/17/17 @ 01:46 by Campos Aquino DO) CAP (community acquired pneumonia) (Acute) NSTEMI (non-ST elevated myocardial infarction) (Acute) Acute on chronic respiratory failure with hypoxia and hypercapnia (Acute) Subjective: denies chest pain, shortness of breath. Resting comfortably with nasal cannula. - Physical Exam General: - - awake, responsive Oral: Dry Mucosa Neck: Supple Lungs: Diminished Cardiovascular: Irregular Rate Abdomen: Bowel Sounds Present, Soft, Non Tender, Non-Distended Extremities: No edema Vital Signs Temp Pulse Resp BP Pulse Ox 98.7 F 67 18 125/64 H 95 10/26/17 16:25 10/26/17 16:25 10/26/17 16:25 10/26/17 16:25 10/26/17 16:25 Oxygen Flow Rate (L/min) 3 Oxygen Delivery Method Nasal Cannula Weight: 85.5 kg Body Mass Index (BMI) 32.9 Intake and Output for Last 24 Hours 10/24/17 10/25/17 10/26/17 23:59 23:59 23:59 Intake Total 2018 60 / 60 Balance 2018 60 / 60 Laboratory Tests Past 24 Hrs 10/25/17 10/26/17 10/26/17 16:55 05:21 05:21 WBC 9.9 RBC 3.78 L Hgb 9.1 L Hct 34.4 L MCV 91.0 MCH 24.1 L MCHC 26.5 L RDW 18.2 H RDW Differential 60.2 H Plt Count 286 MPV 11.4 Immature Gran % (Auto) 0.100 Neut % (Auto) 80.2 H Lymph % (Auto) 12.1 L [place] % (Auto) 5.6 Eos % (Auto) 1.7 Baso % (Auto) 0.3 Absolute Neuts (auto) 8.0 H Absolute Lymphs (auto) 1.20 Total Counted Not Reportable Sodium 142 141 Potassium 3.7 4.0 Chloride 103 103 Carbon Dioxide 33.0 H 32.0 Anion Gap 6 6 BUN 30 H 32 H Creatinine 1.65 H 1.49 H Estim Creat Clear Calc 23.09 25.57 Est GFR (MDRD) Af Amer 38 L 43 L Est GFR (MDRD) Non-Af 32 L 36 L BUN/Creatinine Ratio 18.2 21.5 H Glucose 136 H 157 H Calcium 8.6 8.9 POC Glucose 10/26/17 10/26/17 10/26/17 16:34 11:26 06:48 POC Glucose 138 H 108 157 H 10/25/17 10/25/17 21:12 17:10 POC Glucose 180 H 143 H Medical Necessity - Tobacco Use Smoking Status: Never smoker Assessment/Plan All Active Problems (Last Reviewed 10/17/17 @ 01:46 by Campos Aquino DO) CAP (community acquired pneumonia) (Acute) NSTEMI (non-ST elevated myocardial infarction) (Acute) Acute on chronic respiratory failure with hypoxia and hypercapnia (Acute) Acute on chronic combined systolic and diastolic heart failure (Acute) Acute kidney injury superimposed on chronic kidney disease (Resolved) Acute respiratory failure with hypoxia (Resolved) COPD exacerbation (Resolved) Chest pain (Resolved) Fall (Resolved) Hyperkalemia (Resolved) 1. LANDRY on CKD stage 3. baseline creatinine 1.2 eGFR 45cc/min on 10/18 stable s/p heart cath. Renal fxn improved. Monitor off iv fluids and diuretics 2. Hypernatremia improved 3. Acute respiratory distress/COPD 4. CAD with NSTEMI +troponins with abnormal cath. Cardiology following. 5. DM2 primary mgmt, stable 6. CHF stable oxygenation 7. Contraction metabolic alkalosis s/p acetazolamide, off fluids, diuretics
[2017-10-26] MEDS: Atorvastatin Calcium 40 MG Tablet PO (21:58)
[2017-10-26] MEDS: Mirtazapine 15 MG Tablet PO (21:59)
[2017-10-26 22:15] LABS: Bedside Glucose 110 mg/dL (70-110)
[2017-10-27] VITALS (16 sets, daily range): BP systolic 129–145; BP diastolic 60–74; PULSE 56–78; RESP 12–20; TEMP 37–37.7; O2SAT 94–99
[2017-10-27 06:50] LABS: Bedside Glucose 131 mg/dL (70-110)
[2017-10-27 07:40] LABS: Magnesium 2.3 mg/dL (1.6-2.6); Potassium 4.1 mmol/L (3.5-5.1)
[2017-10-27 07:40] LABS: Bedside Glucose 45 mg/dL (70-110)
[2017-10-27 07:40] LABS: Bedside Glucose 50 mg/dL (70-110)
[2017-10-27] MEDS: Multivitamins,Therapeutic Tablet 1 TABLET PO (08:47)
[2017-10-27] MEDS: amLODIPine 5 MG Tablet PO (08:47)
[2017-10-27] MEDS: Isosorbide Mononitrate 30 MG Tablet PO (08:47)
[2017-10-27] MEDS: Pantoprazole Sodium 40 MG Tablet PO (08:48)
[2017-10-27] MEDS: Metoprolol Tartrate 25 MG Tablet PO (08:48)
[2017-10-27] MEDS: Aspirin E.C. 81 MG Tablet PO (08:48)
[2017-10-27] MEDS: Calcium Carb/Vitamin D 1 TABLET Tablet PO (08:48)
[2017-10-27] MEDS: APIXABAN 2.5 MG TABLET PO (08:48)
--- NOTE | 2017-10-27 09:59 | PCM.PN.REN ---
Patient Problems: Active and Suspected Problems (Last Reviewed 10/17/17 @ 01:46 by Campos Aquino DO) CAP (community acquired pneumonia) (Acute) NSTEMI (non-ST elevated myocardial infarction) (Acute) Acute on chronic respiratory failure with hypoxia and hypercapnia (Acute) Subjective: up to chair eating breakfast. Denies SOB, CP. No edema. - Physical Exam General: Alert, Oriented x3, Cooperative, No apparent distress Oral: Moist Mucosa Neck: Supple Lungs: Rales Cardiovascular: Irregular Rate, Murmur Abdomen: Bowel Sounds Present, Soft, Non Tender, Non-Distended Extremities: No edema Vital Signs Temp Pulse Resp BP Pulse Ox 98.6 F 63 18 131/70 H 99 10/27/17 08:40 10/27/17 08:48 10/27/17 08:43 10/27/17 08:40 10/27/17 08:40 Oxygen Flow Rate (L/min) 2 Oxygen Delivery Method Nasal Cannula Weight: 85.9 kg Body Mass Index (BMI) 32.9 Intake and Output for Last 24 Hours 10/25/17 10/26/17 10/27/17 23:59 23:59 23:59 Intake Total 1781 / 1781 580 / 580 Balance 1781 / 1781 580 / 580 Laboratory Tests Past 24 Hrs 10/27/17 07:20 Potassium 4.1 Magnesium 2.3 POC Glucose 10/27/17 10/26/17 10/26/17 06:43 21:57 16:34 POC Glucose 131 H 110 138 H 10/26/17 10/25/17 10/25/17 11:26 07:08 06:53 POC Glucose 108 50 L 45 L Medical Necessity - Tobacco Use Smoking Status: Never smoker Assessment/Plan All Active Problems (Last Reviewed 10/17/17 @ 01:46 by Campos Aquino DO) CAP (community acquired pneumonia) (Acute) NSTEMI (non-ST elevated myocardial infarction) (Acute) Acute on chronic respiratory failure with hypoxia and hypercapnia (Acute) Acute on chronic combined systolic and diastolic heart failure (Acute) Acute kidney injury superimposed on chronic kidney disease (Resolved) Acute respiratory failure with hypoxia (Resolved) COPD exacerbation (Resolved) Chest pain (Resolved) Fall (Resolved) Hyperkalemia (Resolved) 1. LANDRY on CKD stage 3. baseline creatinine 1.2 eGFR 45cc/min on 10/18 stable s/p heart cath. Renal fxn improved. Monitor off iv fluids and diuretics 2. Hypernatremia improved 3. Acute respiratory distress/COPD stable 4. CAD with NSTEMI +troponins s/p abnormal cath. AsymptomaticCardiology following. 5. DM2 primary mgmt, stable 6. CHF stable oxygenation 7. Contraction metabolic alkalosis s/p acetazolamide, off fluids, diuretics. Await lab results
--- NOTE | 2017-10-27 10:22 | PCM.PROGNOTE ---
Patient Problems: Active and Suspected Problems (Last Reviewed 10/17/17 @ 01:46 by Campos Aquino DO) CAP (community acquired pneumonia) (Acute) NSTEMI (non-ST elevated myocardial infarction) (Acute) Acute on chronic respiratory failure with hypoxia and hypercapnia (Acute) Subjective: The patient was seen and examined at the bedside this morning. Events from the last 24 hours have been reviewed. The patient is currently afebrile, hemodynamically stable and maintaining appropriate oxygen saturations on 2 L/min via nasal cannula. She denies the presence of shortness of breath. Objective: The patient's most recent lab work, culture data and imaging studies have all been personally reviewed. Infectious workup has been negative to date. - Physical Exam General: Alert, Cooperative, No apparent distress HEENT: Atraumatic, PERRLA, Normocephalic Oral: No Gingival or Mucosal Lesions/ Ulcerations Neck: Supple, No Nodes, Trachea Midline Lungs: No rhonchi, No wheeze, No rales, Diminished Cardiovascular: Regular rate, Regular Rhythm, Normal S1, Normal S2, No murmurs Abdomen: Bowel Sounds Present, Soft, Non Tender, Obese Extremities: No clubbing, No cyanosis, No edema Skin: - - No significant change from previous. Musculoskeletal: No Tenderness to Palpation of Joints or Extremities Lymphatic: No Cervical, Supraclavicular, or Inguinal Adenopathy Neurological: Neuro grossly intact Psych/Mental Status: Normal Affect, Appropriate Vital Signs Temp Pulse Resp BP Pulse Ox 98.6 F 63 18 131/70 H 99 10/27/17 08:40 10/27/17 08:48 10/27/17 08:43 10/27/17 08:40 10/27/17 08:40 Oxygen Flow Rate (L/min) 2 Oxygen Delivery Method Nasal Cannula Weight: 189 lb 6.033 oz Body Mass Index (BMI) 32.9 Intake and Output for Last 24 Hours 10/25/17 10/26/17 10/27/17 23:59 23:59 23:59 Intake Total 1781 / 1781 580 / 580 Balance 178 / 178 580 / 580 Laboratory Tests Past 24 Hrs 10/27/17 07:20 Potassium 4.1 Magnesium 2.3 POC Glucose 10/27/17 10/26/17 10/26/17 06:43 21:57 16:34 POC Glucose 131 H 110 138 H 07/15/18 07/14/18 07/14/18 11:26 07:08 06:53 POC Glucose 108 50 L 45 L Labs (Last 48 Hours) 10/25/17 10/25/17 10/25/17 06:53 07:08 12:17 WBC RBC Hgb Hct MCV MCH MCHC RDW RDW Differential Plt Count MPV Immature Gran % (Auto) Neut % (Auto) Lymph % (Auto) [place] % (Auto) Eos % (Auto) Baso % (Auto) Absolute Neuts (auto) Absolute Lymphs (auto) Total Counted Sodium Potassium Chloride Carbon Dioxide Anion Gap BUN Creatinine Estim Creat Clear Calc Est GFR (MDRD) Af Amer Est GFR (MDRD) Non-Af BUN/Creatinine Ratio Glucose Calcium Magnesium POC Glucose 45 L 50 L 138 H 10/25/17 10/25/17 10/25/17 16:55 17:10 21:12 WBC RBC Hgb Hct MCV MCH MCHC RDW RDW Differential Plt Count MPV Immature Gran % (Auto) Neut % (Auto) Lymph % (Auto) [place] % (Auto) Eos % (Auto) Baso % (Auto) Absolute Neuts (auto) Absolute Lymphs (auto) Total Counted Sodium 142 Potassium 3.7 Chloride 103 Carbon Dioxide 33.0 H Anion Gap 6 BUN 30 H Creatinine 1.65 H Estim Creat Clear Calc 23.09 Est GFR (MDRD) Af Amer 38 L Est GFR (MDRD) Non-Af 32 L BUN/Creatinine Ratio 18.2 Glucose 136 H Calcium 8.6 Magnesium POC Glucose 143 H 180 H 10/26/17 10/26/17 10/26/17 05:21 05:21 06:48 WBC 9.9 RBC 3.78 L Hgb 9.1 L Hct 34.4 L MCV 91.0 MCH 24.1 L MCHC 26.5 L RDW 18.2 H RDW Differential 60.2 H Plt Count 286 MPV 11.4 Immature Gran % (Auto) 0.100 Neut % (Auto) 80.2 H Lymph % (Auto) 12.1 L [place] % (Auto) 5.6 Eos % (Auto) 1.7 Baso % (Auto) 0.3 Absolute Neuts (auto) 8.0 H Absolute Lymphs (auto) 1.20 Total Counted Not Reportable Sodium 141 Potassium 4.0 Chloride 103 Carbon Dioxide 32.0 Anion Gap 6 BUN 32 H Creatinine 1.49 H Estim Creat Clear Calc 25.57 Est GFR (MDRD) Af Amer 43 L Est GFR (MDRD) Non-Af 36 L BUN/Creatinine Ratio 21.5 H Glucose 157 H Calcium 8.9 Magnesium POC Glucose 157 H 10/26/17 10/26/17 10/26/17 11:26 16:34 21:57 WBC RBC Hgb Hct MCV MCH MCHC RDW RDW Differential Plt Count MPV Immature Gran % (Auto) Neut % (Auto) Lymph % (Auto) [place] % (Auto) Eos % (Auto) Baso % (Auto) Absolute Neuts (auto) Absolute Lymphs (auto) Total Counted Sodium Potassium Chloride Carbon Dioxide Anion Gap BUN Creatinine Estim Creat Clear Calc Est GFR (MDRD) Af Amer Est GFR (MDRD) Non-Af BUN/Creatinine Ratio Glucose Calcium Magnesium POC Glucose 108 138 H 110 10/27/17 10/27/17 06:43 07:20 WBC RBC Hgb Hct MCV MCH MCHC RDW RDW Differential Plt Count MPV Immature Gran % (Auto) Neut % (Auto) Lymph % (Auto) [place] % (Auto) Eos % (Auto) Baso % (Auto) Absolute Neuts (auto) Absolute Lymphs (auto) Total Counted Sodium Potassium 4.1 Chloride Carbon Dioxide Anion Gap BUN Creatinine Estim Creat Clear Calc Est GFR (MDRD) Af Amer Est GFR (MDRD) Non-Af BUN/Creatinine Ratio Glucose Calcium Magnesium 2.3 POC Glucose 131 H Microbiology 10/19/17 19:20 Blood Culture (Wb) - Left Forearm Blood Culture - Final No growth in 5 days. 10/19/17 19:20 Blood Culture (Wb) - Right Wrist Blood Culture - Final No growth in 5 days. Clinical Impression(s) from Imaging Studies Chest X-Ray 10/19/17 18:45 IMPRESSION: Stable exam. Electronically Signed: Guanako Beltran, at 19:09 EDT Tel , Service support , Chest X-Ray 10/20/17 05:55 IMPRESSION: Progressive CHF as compared to prior study. Electronically Signed: Sergio Leon MD at 9:50 EDT Tel [phone], Service support , Medical Necessity - Tobacco Use Smoking Status: Never smoker Assessment/Plan All Active Problems (Last Reviewed 10/17/17 @ 01:46 by Campos Aquino DO) CAP (community acquired pneumonia) (Acute) NSTEMI (non-ST elevated myocardial infarction) (Acute) Acute on chronic respiratory failure with hypoxia and hypercapnia (Acute) Acute on chronic combined systolic and diastolic heart failure (Acute) Acute kidney injury superimposed on chronic kidney disease (Resolved) Acute respiratory failure with hypoxia (Resolved) COPD exacerbation (Resolved) Chest pain (Resolved) Fall (Resolved) Hyperkalemia (Resolved) RECOMMENDATIONS: 1. Continue to wean supplemental oxygen as tolerated. 2. Encourage incentive spirometer use and mobilize patient as tolerated. 3. Diuretics and fluids currently on hold per nephrology. 4. Continue empiric BiPAP therapy with naps and nightly. 5. Perform walking oximetry study prior to consideration for discharge from the hospital. 6. Recommend outpatient follow-up polysomnogram 7. The patient should ideally be seen in the pulmonary medicine clinic within 2 weeks of her discharge from the hospital. IMPRESSIONS: 1. Acute on chronic hypoxic and hypercarbic respiratory failure secondary to CHF exacerbation in the setting of elevated troponins Patient appears to be responding well to BiPAP therapy with sleeping. Would continue with BiPAP with sleep as patient has a high clinical likelihood of having obstructive sleep apnea. Continue to wean oxygen as tolerated. Patient should have a walking oximetry prior to discharge. Do anticipate supplemental oxygen will be required on discharge, at least with exertion. 2. Non-STEMI No intervention with heart catheterization during this hospitalization. Cardiology is following. 3. History of A. fib/CAD/type 2 diabetes mellitus/CKD stage III/anemia Complicates care, management, recovery, and prognosis. Continue home medications as indicated. Renal is following. Patient's blood sugars are more appropriate following decrease in Lantus dosing. This note was generated with rumration software. It may contain incorrect words, spelling, and punctuation that were not noted in checking the note before signing. Code Visit Inpatient E&M: 57369 Subs Hosp L2
--- NOTE | 2017-10-27 10:27 | CCN.REFER ---
DANGELO @ [facility] AWARE TO CONTACT [facility] UPON DC OF SNF.
--- NOTE | 2017-10-27 10:28 | PN_ITS ---
Patient Problems: Active and Suspected Problems (Last Reviewed 10/17/17 @ 01:46 by Campos Aquino DO) CAP (community acquired pneumonia) (Acute) NSTEMI (non-ST elevated myocardial infarction) (Acute) Acute on chronic respiratory failure with hypoxia and hypercapnia (Acute) Subjective: The patient was seen and examined at the bedside this morning. Events from the last 24 hours have been reviewed. The patient is currently afebrile, hemodynamically stable and maintaining appropriate oxygen saturations on 2 L/ min via nasal cannula. She denies the presence of shortness of breath. Objective: The patient's most recent lab work, culture data and imaging studies have all been personally reviewed. Infectious workup has been negative to date. - Physical Exam General: Alert, Cooperative, No apparent distress HEENT: Atraumatic, PERRLA, Normocephalic Oral: No Gingival or Mucosal Lesions/ Ulcerations Neck: Supple, No Nodes, Trachea Midline Lungs: No rhonchi, No wheeze, No rales, Diminished Cardiovascular: Regular rate, Regular Rhythm, Normal S1, Normal S2, No murmurs Abdomen: Bowel Sounds Present, Soft, Non Tender, Obese Extremities: No clubbing, No cyanosis, No edema Skin: - - No significant change from previous. Musculoskeletal: No Tenderness to Palpation of Joints or Extremities Lymphatic: No Cervical, Supraclavicular, or Inguinal Adenopathy Neurological: Neuro grossly intact Psych/Mental Status: Normal Affect, Appropriate Vital Signs Temp Pulse Resp BP Pulse Ox 98.6 F 63 18 131/70 H 99 10/27/17 08:40 10/27/17 08:48 10/27/17 08:43 10/27/17 08:40 10/27/17 08:40 Oxygen Flow Rate (L/min) 2 Oxygen Delivery Method Nasal Cannula Weight: 189 lb 6.033 oz Body Mass Index (BMI) 32.9 Intake and Output for Last 24 Hours 10/25/17 10/26/17 10/27/17 23:59 23:59 23:59 Intake Total 1781 / 1781 580 / 580 Balance 178 / 178 580 / 580 Laboratory Tests Past 24 Hrs 10/27/17 07:20 Potassium 4.1 Magnesium 2.3 POC Glucose 10/27/17 10/26/17 10/26/17 06:43 21:57 16:34 POC Glucose 131 H 110 138 H 07/15/18 07/14/18 07/14/18 11:26 07:08 06:53 POC Glucose 108 50 L 45 L Labs (Last 48 Hours) 10/25/17 10/25/17 10/25/17 06:53 07:08 12:17 WBC RBC Hgb Hct MCV MCH MCHC RDW RDW Differential Plt Count MPV Immature Gran % (Auto) Neut % (Auto) Lymph % (Auto) [place] % (Auto) Eos % (Auto) Baso % (Auto) Absolute Neuts (auto) Absolute Lymphs (auto) Total Counted Sodium Potassium Chloride Carbon Dioxide Anion Gap BUN Creatinine Estim Creat Clear Calc Est GFR (MDRD) Af Amer Est GFR (MDRD) Non-Af BUN/Creatinine Ratio Glucose Calcium Magnesium POC Glucose 45 L 50 L 138 H 10/25/17 10/25/17 10/25/17 16:55 17:10 21:12 WBC RBC Hgb Hct MCV MCH MCHC RDW RDW Differential Plt Count MPV Immature Gran % (Auto) Neut % (Auto) Lymph % (Auto) [place] % (Auto) Eos % (Auto) Baso % (Auto) Absolute Neuts (auto) Absolute Lymphs (auto) Total Counted Sodium 142 Potassium 3.7 Chloride 103 Carbon Dioxide 33.0 H Anion Gap 6 BUN 30 H Creatinine 1.65 H Estim Creat Clear Calc 23.09 Est GFR (MDRD) Af Amer 38 L Est GFR (MDRD) Non-Af 32 L BUN/Creatinine Ratio 18.2 Glucose 136 H Calcium 8.6 Magnesium POC Glucose 143 H 180 H 10/26/17 10/26/17 10/26/17 05:21 05:21 06:48 WBC 9.9 RBC 3.78 L Hgb 9.1 L Hct 34.4 L MCV 91.0 MCH 24.1 L MCHC 26.5 L RDW 18.2 H RDW Differential 60.2 H Plt Count 286 MPV 11.4 Immature Gran % (Auto) 0.100 Neut % (Auto) 80.2 H Lymph % (Auto) 12.1 L [place] % (Auto) 5.6 Eos % (Auto) 1.7 Baso % (Auto) 0.3 Absolute Neuts (auto) 8.0 H Absolute Lymphs (auto) 1.20 Total Counted Not Reportable Sodium 141 Potassium 4.0 Chloride 103 Carbon Dioxide 32.0 Anion Gap 6 BUN 32 H Creatinine 1.49 H Estim Creat Clear Calc 25.57 Est GFR (MDRD) Af Amer 43 L Est GFR (MDRD) Non-Af 36 L BUN/Creatinine Ratio 21.5 H Glucose 157 H Calcium 8.9 Magnesium POC Glucose 157 H 10/26/17 10/26/17 10/26/17 11:26 16:34 21:57 WBC RBC Hgb Hct MCV MCH MCHC RDW RDW Differential Plt Count MPV Immature Gran % (Auto) Neut % (Auto) Lymph % (Auto) [place] % (Auto) Eos % (Auto) Baso % (Auto) Absolute Neuts (auto) Absolute Lymphs (auto) Total Counted Sodium Potassium Chloride Carbon Dioxide Anion Gap BUN Creatinine Estim Creat Clear Calc Est GFR (MDRD) Af Amer Est GFR (MDRD) Non-Af BUN/Creatinine Ratio Glucose Calcium Magnesium POC Glucose 108 138 H 110 10/27/17 10/27/17 06:43 07:20 WBC RBC Hgb Hct MCV MCH MCHC RDW RDW Differential Plt Count MPV Immature Gran % (Auto) Neut % (Auto) Lymph % (Auto) [place] % (Auto) Eos % (Auto) Baso % (Auto) Absolute Neuts (auto) Absolute Lymphs (auto) Total Counted Sodium Potassium 4.1 Chloride Carbon Dioxide Anion Gap BUN Creatinine Estim Creat Clear Calc Est GFR (MDRD) Af Amer Est GFR (MDRD) Non-Af BUN/Creatinine Ratio Glucose Calcium Magnesium 2.3 POC Glucose 131 H Microbiology 10/19/17 19:20 Blood Culture (Wb) - Left Forearm Blood Culture - Final No growth in 5 days. 10/19/17 19:20 Blood Culture (Wb) - Right Wrist Blood Culture - Final No growth in 5 days. Clinical Impression(s) from Imaging Studies Chest X-Ray 10/19/17 18:45 IMPRESSION: Stable exam. Electronically Signed: Guanako Beltran, at 19:09 EDT Tel , Service support , Chest X-Ray 10/20/17 05:55 IMPRESSION: Progressive CHF as compared to prior study. Electronically Signed: Sergio Leon MD at 9:50 EDT Tel [phone], Service support , Medical Necessity - Tobacco Use Smoking Status: Never smoker Assessment/Plan All Active Problems (Last Reviewed 10/17/17 @ 01:46 by Campos Aquino DO) CAP (community acquired pneumonia) (Acute) NSTEMI (non-ST elevated myocardial infarction) (Acute) Acute on chronic respiratory failure with hypoxia and hypercapnia (Acute) Acute on chronic combined systolic and diastolic heart failure (Acute) Acute kidney injury superimposed on chronic kidney disease (Resolved) Acute respiratory failure with hypoxia (Resolved) COPD exacerbation (Resolved) Chest pain (Resolved) Fall (Resolved) Hyperkalemia (Resolved) RECOMMENDATIONS: 1. Continue to wean supplemental oxygen as tolerated. 2. Encourage incentive spirometer use and mobilize patient as tolerated. 3. Diuretics and fluids currently on hold per nephrology. 4. Continue empiric BiPAP therapy with naps and nightly. 5. Perform walking oximetry study prior to consideration for discharge from the hospital. 6. Recommend outpatient follow-up polysomnogram 7. The patient should ideally be seen in the pulmonary medicine clinic within 2 weeks of her discharge from the hospital. IMPRESSIONS: 1. Acute on chronic hypoxic and hypercarbic respiratory failure secondary to CHF exacerbation in the setting of elevated troponins Patient appears to be responding well to BiPAP therapy with sleeping. Would continue with BiPAP with sleep as patient has a high clinical likelihood of having obstructive sleep apnea. Continue to wean oxygen as tolerated. Patient should have a walking oximetry prior to discharge. Do anticipate supplemental oxygen will be required on discharge, at least with exertion. 2. Non-STEMI No intervention with heart catheterization during this hospitalization. Cardiology is following. 3. History of A. fib/CAD/type 2 diabetes mellitus/CKD stage III/anemia Complicates care, management, recovery, and prognosis. Continue home medications as indicated. Renal is following. Patient's blood sugars are more appropriate following decrease in Lantus dosing. This note was generated with Comfywareation software. It may contain incorrect words, spelling, and punctuation that were not noted in checking the note before signing. Code Visit Inpatient E&M: 07474 Subs Hosp L2
[2017-10-27 11:40] LABS: Bedside Glucose 170 mg/dL (70-110)
[2017-10-27] MEDS: Insulin Lispro 100 UNIT/ML INSULN.PEN SC (12:24)
--- NOTE | 2017-10-27 14:43 | PCM.PROGNOTE ---
<Flaco Minor - Last Filed: 10/27/17 14:43> Patient Problems: Active and Suspected Problems (Last Reviewed 10/17/17 @ 01:46 by Campos Aquino DO) CAP (community acquired pneumonia) (Acute) NSTEMI (non-ST elevated myocardial infarction) (Acute) Acute on chronic respiratory failure with hypoxia and hypercapnia (Acute) Subjective: No acute issues. Waiting for placement. No CP. No SOB. No cough. No leg swelling. - Physical Exam General: Alert, Oriented x3, Cooperative HEENT: Atraumatic, PERRLA, EOMI, Normocephalic Neck: Supple, No JVD, Negative Carotid Bruits Lungs: Clear to auscultation, Normal air movement Cardiovascular: Regular rate, No murmurs Abdomen: Bowel Sounds Present, Soft, Non Tender Extremities: No edema, Capillary Refill Less than 3 Seconds Skin: No rashes, No breakdown Musculoskeletal: No Tenderness to Palpation of Joints or Extremities Neurological: Cranial nerves II-XII grossly intact Psych/Mental Status: Normal Affect, Appropriate, Alert and oriented to time, place, person, mood and affect Vital Signs Temp Pulse Resp BP Pulse Ox 98.6 F 57 L 18 131/70 H 99 10/27/17 08:40 10/27/17 11:14 10/27/17 08:43 10/27/17 08:40 10/27/17 08:40 Oxygen Flow Rate (L/min) 2 Oxygen Delivery Method Nasal Cannula Weight: 189 lb 6.033 oz Body Mass Index (BMI) 32.9 Intake and Output for Last 24 Hours 10/25/17 10/26/17 10/27/17 23:59 23:59 23:59 Intake Total 1781 / 1781 580 / 580 120 / 120 Balance 1781 / 1781 580 / 580 120 / 120 Laboratory Tests Past 24 Hrs 10/27/17 07:20 Potassium 4.1 Magnesium 2.3 POC Glucose 10/27/17 10/27/17 10/26/17 11:37 06:43 21:57 POC Glucose 170 H 131 H 110 10/26/17 10/25/17 10/25/17 16:34 07:08 06:53 POC Glucose 138 H 50 L 45 L Medical Necessity - Tobacco Use Smoking Status: Never smoker Assessment/Plan All Active Problems (Last Reviewed 10/17/17 @ 01:46 by Campos Aquino DO) CAP (community acquired pneumonia) (Acute) NSTEMI (non-ST elevated myocardial infarction) (Acute) Acute on chronic respiratory failure with hypoxia and hypercapnia (Acute) Acute on chronic combined systolic and diastolic heart failure (Acute) Acute kidney injury superimposed on chronic kidney disease (Resolved) Acute respiratory failure with hypoxia (Resolved) COPD exacerbation (Resolved) Chest pain (Resolved) Fall (Resolved) Hyperkalemia (Resolved) 1. Acute CHF exacerbation , intermediate EF, ischemic cardiomyopathy - Improved. No SOB. No significant edema. Echo EF 45%. PASP 59 mmHg, mod pulm htn. contraction alkalosis. 2. NSTEMI - stable. No CP. On norvasc, statin, Asa, BB, imdur. Allergic to LEANDER. s/p cath, no intervention. Outpatient Stress test. 3. HTN - stable. per cardiology high is normal. 4. PAF - eliquis, rate controlled. Is mildly tachycardic in the morning before receiving her metoprolol. Appears to be well-controlled otherwise. 5. CKD III - stable. 6. DMt2 - long acting + SSI, was low this AM. Stable now. Goal 130. DVT ppx: eliquis DC planning: waiting for SNF precert. This patient was seen by Flaco Minor PA-C under the supervision of Doctor Emmie. <Abdullahi Olea - Last Filed: 10/27/17 15:23> - Physical Exam Vital Signs Temp Pulse Resp BP Pulse Ox 98.6 F 57 L 18 131/70 H 99 10/27/17 08:40 10/27/17 11:14 10/27/17 14:46 10/27/17 08:40 10/27/17 08:40 Oxygen Flow Rate (L/min) 2 Oxygen Delivery Method Nasal Cannula Weight: 85.9 kg Body Mass Index (BMI) 32.9 Intake and Output for Last 24 Hours 10/25/17 10/26/17 10/27/17 23:59 23:59 23:59 Intake Total 1780 / 178 580 / 580 120 / 120 Balance 1780 / 178 580 / 580 120 / 120 Laboratory Tests Past 24 Hrs 10/27/17 07:20 Potassium 4.1 Magnesium 2.3 POC Glucose 10/27/17 10/27/17 10/26/17 11:37 06:43 21:57 POC Glucose 170 H 131 H 110 10/26/17 10/25/17 10/25/17 16:34 07:08 06:53 POC Glucose 138 H 50 L 45 L Assessment/Plan This patient was seen in conjunction with Flaco Minor PA-C . I have independently interviewed and examined the patient and reviewed pertinent historical, laboratory, and other data. Please refer to Flaco Minor PA-C note for details of this patient's presentation, findings, and recommendations. I have reviewed Flaco Minor PA-C note and concur with documented findings. In brief, patient is an 82-year-old female admitted with progressive shortness of breath patient admitting diagnoses include acute congestive heart failure, non-ST segment elevation [place] Physical Examination: GENERAL: Comfortable at rest HEENT: Clear conjunctiva, NECK; supple, normal thyroid, CHEST: Diminished to auscultation bilaterally, HEART: Regular S1 S2, systolic murmur ABDOMEN: soft, non-tender, normoactive bowel sounds, RECTAL: deferred HOSPITAL INTERN: Awake; no lateralizing signs. SKIN: Described above Assessment: 1. Acute systolic congestive heart failure 2. Acute non-STEMI 3. Hypertension 4. Diabetes mellitus type 2 5. Chronic kidney disease stage III 6. Paroxysmal A. fib 7. Physical deconditioning 8. DysLipidemia 9. DVT prophylaxis on Eliquis Recommendations: 1. I have discussed the results of my overview and impressions with the patient 2. Options for management were reviewed Clinical Impression(s) from Imaging Studies Chest X-Ray 10/19/17 18:45 IMPRESSION: Stable exam. Electronically Signed: Guanako Beltran at 19:09 EDT Tel , Service support , Chest X-Ray 10/20/17 05:55 IMPRESSION: Progressive CHF as compared to prior study. Electronically Signed: Sergio Leon MD at 9:50 EDT Tel [phone], Service support , Active Medications Acetaminophen (Tylenol) 650 mg PO Q6H PRN PRN PRN Reason: Mild Pain (scale 0-3)/T>100.7 Albuterol/Ipratropium (Duoneb) 3 ml INHALATION Q4H.RT PRN PRN Reason: Wheezing Amlodipine Besylate (Norvasc) 5 mg PO DAILY [facility] Last Admin: 10/27/17 08:47 Dose: 5 mg Apixaban (Eliquis) 2.5 mg PO BID [facility] Last Admin: 10/27/17 08:48 Dose: 2.5 mg Aspirin (Ecotrin) 81 mg PO DAILY@0800 [facility] Last Admin: 10/27/17 08:48 Dose: 81 mg Atorvastatin Calcium (Lipitor) 40 mg PO QHS [facility] Last Admin: 10/26/17 21:58 Dose: 40 mg Calcium/Vitamin D (Os-[place] 500mg + D) 1 tablet PO BID [facility] Last Admin: 10/27/17 08:48 Dose: 1 tablet Heparin Sodium (Beef Lung) (Heparin 500 Unit/5 Ml (100/Ml)) 500 unit IV UD PRN PRN Reason: HEPARIN FLUSH Insulin Glargine (Lantus (Bkc)) 20 units SC BID [facility] Last Admin: 10/27/17 08:48 Dose: 20 u Insulin Human Lispro (Humalog Kwikpen (Bkc)) 0 unit SC ACHS [facility] PRN Reason: Protocol Last Admin: 10/27/17 12:24 Dose: 1 units Isosorbide Mononitrate (Imdur) 30 mg PO DAILY [facility] Last Admin: 10/27/17 08:47 Dose: 30 mg Labetalol HCl (Trandate) 5 mg IV X1 PRN PRN Reason: SBP > 160 prior to sheath pull Magnesium Hydroxide (Milk Of Magnesia) 30 ml PO DAILY PRN PRN PRN Reason: Constipation Metoprolol Tartrate (Lopressor (Beta Rah)) 25 mg PO BID [facility] Last Admin: 10/27/17 08:48 Dose: 25 mg Mirtazapine (Remeron) 15 mg PO QHS [facility] Last Admin: 10/26/17 21:59 Dose: 15 mg Multivitamins (Multivitamin) 1 tablet PO DAILY@0800 [facility] Last Admin: 10/27/17 08:47 Dose: 1 tablet Nutritional Formula (Lactose Free) (Glucerna Shake) 120 ml PO 4X/DAY [facility] Last Admin: 10/27/17 14:48 Dose: Not Given Pantoprazole Sodium (Protonix) 40 mg PO DAILY [facility] Last Admin: 10/27/17 08:48 Dose: 40 mg Sodium Chloride () 5 - 30 ml IV UD PRN PRN Reason: SALINE FLUSH Last Admin: 10/21/17 16:22 Dose: 10 ml Code Visit Inpatient E&M: 19797 Subs Hosp L2
--- NOTE | 2017-10-27 16:13 | CASEMGMT ---
SEDA received a call from Maria Fernanda at [facility] and they received insurance approval for patient. SEDA notified physician. SEDA attempted to call patient's granddaughter, but her voice mail was full. Nikki HECTOR
--- NOTE | 2017-10-27 16:31 | PCM.DC ---
- Discharge Diagnoses Current Active Problems: Current Active and Chronic Problems (Last Reviewed 10/17/17 @ 01:46 by Campos Aquino DO) CAP (community acquired pneumonia) (Acute) NSTEMI (non-ST elevated myocardial infarction) (Acute) Acute on chronic respiratory failure with hypoxia and hypercapnia (Acute) You will use the following diet at home:: Calorie/Carbohydrate Controlled (specify 1200, 1400, etc) - 1800 bev / day, Cardiac Your food should be the consistency of: Regular Your liquids should be the consistency of: Regular/Thin Discharge Activity: Return to Normal Activity Allergies/Adverse Reactions: Allergies LEANDER Inhibitors Allergy (Verified 10/16/17 22:39) Unknown Medications to take at Discharge Atorvastatin Calcium [Lipitor] 40 mg PO QHS 04/19/17 Calcium Carbonate/Vitamin D3 [Calcium 500-Vit D3 600 Tablet] 1 each PO BID 04/19/17 Isosorbide Mononitrate [Imdur] 30 mg PO DAILY 04/19/17 Mirtazapine [Remeron] 15 mg PO QHS 04/19/17 Multivitamin [Daily Multiple Vitamin] 1 each PO DAILY 04/19/17 Omeprazole 40 mg PO DAILY 04/19/17 Acetaminophen [Tylenol Tablet] 650 mg PO Q6H PRN PRN tablet 08/13/17 Amlodipine [Norvasc] 5 mg PO DAILY tablet 10/27/17 Apixaban [Eliquis] 2.5 mg PO BID tablet 10/27/17 Aspirin E.C. [Ecotrin] 81 mg PO DAILY@0800 tablet 10/27/17 Furosemide [Lasix] 40 mg PO DAILY #30 tablet 10/27/17 Glucerna Shake 120 ml PO 4X/DAY liquid 10/27/17 Insulin Glargine [Lantus SoloStar Pen] 20 units SC BID pen 10/27/17 Ipratropium/Albuterol Sulfate [Duoneb] 3 ml INHALATION Q4H.RT PRN ampul.neb 10/27/17 Magnesium Hydroxide [Milk Of Magnesia] 30 ml PO DAILY PRN PRN udc 10/27/17 Metoprolol Tartrate [Lopressor (beta joan)] 25 mg PO BID tablet 10/27/17 The following prescriptions were given: Furosemide [Lasix] 40 mg PO DAILY #30 tablet Primary Care Physician: Eliot Loja MD [Primary Care Provider] - Please follow up with your Primary Care Physician in: 1-2 weeks Test Results: Test results from this visit will be discussed in further detail at your follow-up appointment, if applicable. Please Follow Up With: Ángel Michelle MD When: 2 weeks Please Follow Up With: Shelby Solomon DO When: 2 weeks Proposed Discharge Date: 10/27/17
--- NOTE | 2017-10-27 16:34 | DCINST_ITS ---
- Discharge Diagnoses Current Active Problems: Current Active and Chronic Problems (Last Reviewed 10/17/17 @ 01:46 by Campos Aquino DO) CAP (community acquired pneumonia) (Acute) NSTEMI (non-ST elevated myocardial infarction) (Acute) Acute on chronic respiratory failure with hypoxia and hypercapnia (Acute) You will use the following diet at home:: Calorie/Carbohydrate Controlled ( specify 1200, 1400, etc) - 1800 bev / day, Cardiac Your food should be the consistency of: Regular Your liquids should be the consistency of: Regular/Thin Discharge Activity: Return to Normal Activity Allergies/Adverse Reactions: Allergies LEANDER Inhibitors Allergy (Verified 10/16/17 22:39) Unknown Medications to take at Discharge Atorvastatin Calcium [Lipitor] 40 mg PO QHS 04/19/17 Calcium Carbonate/Vitamin D3 [Calcium 500-Vit D3 600 Tablet] 1 each PO BID 04/19 Isosorbide Mononitrate [Imdur] 30 mg PO DAILY 04/19/17 Mirtazapine [Remeron] 15 mg PO QHS 04/19/17 Multivitamin [Daily Multiple Vitamin] 1 each PO DAILY 04/19/17 Omeprazole 40 mg PO DAILY 04/19/17 Acetaminophen [Tylenol Tablet] 650 mg PO Q6H PRN PRN tablet 08/13/17 Amlodipine [Norvasc] 5 mg PO DAILY tablet 10/27/17 Apixaban [Eliquis] 2.5 mg PO BID tablet 10/27/17 Aspirin E.C. [Ecotrin] 81 mg PO DAILY@0800 tablet 10/27/17 Furosemide [Lasix] 40 mg PO DAILY #30 tablet 10/27/17 Glucerna Shake 120 ml PO 4X/DAY liquid 10/27/17 Insulin Glargine [Lantus SoloStar Pen] 20 units SC BID pen 10/27/17 Ipratropium/Albuterol Sulfate [Duoneb] 3 ml INHALATION Q4H.RT PRN ampul.neb Magnesium Hydroxide [Milk Of Magnesia] 30 ml PO DAILY PRN PRN udc 10/27/17 Metoprolol Tartrate [Lopressor (beta joan)] 25 mg PO BID tablet 10/27/17 The following prescriptions were given: Furosemide [Lasix] 40 mg PO DAILY #30 tablet Primary Care Physician: Eliot Loja MD [Primary Care Provider] - Please follow up with your Primary Care Physician in: 1-2 weeks Test Results: Test results from this visit will be discussed in further detail at your follow- up appointment, if applicable. Please Follow Up With: Ángel Michelle MD When: 2 weeks Please Follow Up With: Shelby Solomon DO When: 2 weeks Proposed Discharge Date: 10/27/17
--- NOTE | 2017-10-27 16:34 | PCM.DC.SUM ---
<Flaco Minor - Last Filed: 10/27/17 16:47> Discharge Date and Diagnosis - Problem List Patient Problems: Active and Suspected Problems (Last Reviewed 10/17/17 @ 01:46 by Campos Aquino DO) CAP (community acquired pneumonia) (Acute) NSTEMI (non-ST elevated myocardial infarction) (Acute) Acute on chronic respiratory failure with hypoxia and hypercapnia (Acute) CHF (congestive heart failure) (Acute) LANDRY (acute kidney injury) (Acute) Date of Admission: 10/19/17 Date of Discharge: 10/27/17 - Primary Discharge Diagnosis Active and Suspected Problems (Last Reviewed 10/17/17 @ 01:46 by Campos Aquino DO) NSTEMI (non-ST elevated myocardial infarction) (Acute) Acute on chronic respiratory failure with hypoxia and hypercapnia (Acute) Acute exacerbation of congestive heart failure with intermediate ejection fraction AK I on CKD 3 Hypernatremia Moderate pulmonary hypertension Pneumonia ruled out Hypertension Paroxysmal atrial fibrillation Type 2 diabetes mellitus Contraction alkalosis - Secondary Discharge Diagnosis Chronic Problems (Last Reviewed 10/17/17 @ 01:46 by Campos Aquino DO) Anemia (Chronic) Chronic renal failure, stage 3 (moderate) (Chronic) Type 2 diabetes mellitus (Chronic) Poor dental hygiene (Chronic) History of coronary artery bypass graft (Chronic) Chronic hypoxemic respiratory failure (Chronic) Afib (Chronic) Gastric ulcer (Chronic) Colon polyps (Chronic) CAD (coronary artery disease) (Chronic) Hospital Course and Treatment Imaging Results: RAD/Chest 1 View (Portable) IMPRESSION: Stable exam. RAD/Chest PA and Lateral IMPRESSION: Progressive CHF as compared to prior study. Echo: TR max luisa: 373.0 cm/sec TR max P.7 mmHg Interpretation Summary Mildly dilated left ventricle. Moderate concentric left ventricular hypertrophy. The estimated ejection fraction is 45 %. Mild to moderate segmental systolic dysfunction (see wall motion). The left atrium is moderately enlarged. Moderate (2+) eccentric mitral valve insufficiency. Moderate pulmonary hypertension. Compared to the previous the findings are not completely changed. Cardiac catheterization report: CONCLUSIONS Severe diffuse disease involving the [place] right coronary artery, circumflex artery, and with severe hypokinesis to akinesis of the anterior wall and apex and mild hypokinesis of the basal inferior wall RECOMMENDATIONS Would recommend viability/stress test study as outpatient to see whether patient would benefit from targeted revascularization.. Consults: Juanito- nephrology [facility] - Cardiology Anant - pulmonary Operations: None Procedures: 2-D Echocardiogram, Cardiac catheterization Summary of Care Provided: Physical exam on day of discharge: General: Resting comfortably NAD Psych: A/Ox3 normal affect HEENT: PEARRLA AT NC Neck: Supple NT CV: RRR no m/t/r/g/h Resp: CTA Abd: [id number] Soft NT no guarding or rigidity Ext: DP2+= no edema Skin: W/D normal turgor Lymph/Heme: No active bleeding or adenopathy Neuro: CN2-12 intact Hospital course: The patient is a 82 year old F with history as above who presented to the emergency room with increased dyspnea, found to have elevated troponins and a severely elevated BNP on presentation. Admitted to the cardiac care unit with non-ST segment elevation myocardial infarction and acute intermediate ejection fraction heart failure started on IV Lasix. Developed hypernatremia and LANDRY and contraction alkalosis. Cardiology, pulmonology, and nephrology were consulted. Diuretics were held. The patient underwent a cardiac catheterization which revealed changes as described above. No intervention was provided at this time and it was recommended that the patient undergo viability studies with a stress test as an outpatient. Her medications were adjusted, she is on Norvasc, Eliquis for A. fib, aspirin, statin, metoprolol, indoor, MIGUEL deferred given acute kidney injury. She was maintained on BiPAP at night and will require oxygen going forward. She was also treated by our speech therapist while here for dysphagia, she was able to be advanced to thin liquids diet but will need T need to maintain a mechanical soft diet and supervised feeding with continued speech therapy going forward. After discontinuation of her Lasix her renal function, sodium, alkalosis improved. As she had positive fluid balance over the last few days we will restart her at a lower dose of Lasix at this time-please monitor BMP closely. She will need to follow-up with cardiology for viability study, follow-up nephrology given her acute renal changes over this admission, and follow-up with pulmonology as she has had worsening of her respiratory status. She is discharged to longterm in stable condition. This patient was seen by Flaco Minor PA-C under the supervision of Doctor Kittoe. [] Discharge Diet: Low fat/ Low Cholesterol, 1800 Calorie Control Diet, 2000 mg Sodium Diet Discharge Activity: Return to Normal Activity Home Medications: Medications to take at Discharge Atorvastatin Calcium [Lipitor] 40 mg PO QHS 04/19/17 Calcium Carbonate/Vitamin D3 [Calcium 500-Vit D3 600 Tablet] 1 each PO BID 04/19/17 Isosorbide Mononitrate [Imdur] 30 mg PO DAILY 04/19/17 Mirtazapine [Remeron] 15 mg PO QHS 04/19/17 Multivitamin [Daily Multiple Vitamin] 1 each PO DAILY 04/19/17 Omeprazole 40 mg PO DAILY 04/19/17 Acetaminophen [Tylenol Tablet] 650 mg PO Q6H PRN PRN tablet 08/13/17 Amlodipine [Norvasc] 5 mg PO DAILY tablet 10/27/17 Apixaban [Eliquis] 2.5 mg PO BID tablet 10/27/17 Aspirin E.C. [Ecotrin] 81 mg PO DAILY@0800 tablet 10/27/17 Furosemide [Lasix] 40 mg PO DAILY #30 tablet 10/27/17 Glucerna Shake 120 ml PO 4X/DAY liquid 10/27/17 Insulin Glargine [Lantus SoloStar Pen] 20 units SC BID pen 10/27/17 Ipratropium/Albuterol Sulfate [Duoneb] 3 ml INHALATION Q4H.RT PRN ampul.neb 10/27/17 Magnesium Hydroxide [Milk Of Magnesia] 30 ml PO DAILY PRN PRN udc 10/27/17 Metoprolol Tartrate [Lopressor (beta rah)] 25 mg PO BID tablet 10/27/17 Following Prescrptions Were Given to Patient: Furosemide [Lasix] 40 mg PO DAILY #30 tablet Primary Care Physician: Eliot Loja MD [Primary Care Provider] - Please follow up with your Primary Care Physician in: 1-2 weeks Please Follow Up With: Ángel Michelle MD When: 2 weeks Please Follow Up With: Shelby Solomon DO When: 2 weeks [facility]position: Jail facility Minutes spent on discharge:: 40 Patient Condition:: Stable Medical Necessity - Tobacco Use Smoking Status: Never smoker Meaningful Use Info Meaningful Use Diagnoses (Choose all that apply): AMI - AMI Aspirin given w/in 24hrs of arrival?: Yes ASA at discharge?: Yes Statins at discharge?: Yes Miguel/ARB at discharge?: No Reason Miguel/ARB not ordered:: Allergy, Worsening renal disease Beta Rah at discharge?: Yes Done w/ Acute [place] measure.: Yes <Abdullahi Olea - Last Filed: 10/27/17 17:27> Discharge Date and Diagnosis - Primary Discharge Diagnosis Active and Suspected Problems (Last Reviewed 10/17/17 @ 01:46 by aCmpos Aquino DO) CAP (community acquired pneumonia) (Acute) NSTEMI (non-ST elevated myocardial infarction) (Acute) Acute on chronic respiratory failure with hypoxia and hypercapnia (Acute) CHF (congestive heart failure) (Acute) LANDRY (acute kidney injury) (Acute) - Secondary Discharge Diagnosis Chronic Problems (Last Reviewed 10/17/17 @ 01:46 by Campos Aquino DO) Anemia (Chronic) Chronic renal failure, stage 3 (moderate) (Chronic) Type 2 diabetes mellitus (Chronic) Poor dental hygiene (Chronic) History of coronary artery bypass graft (Chronic) Chronic hypoxemic respiratory failure (Chronic) Afib (Chronic) Gastric ulcer (Chronic) Colon polyps (Chronic) CAD (coronary artery disease) (Chronic) Hospital Course and Treatment Summary of Care Provided: his patient was seen in conjunction with Flaco Minor PA-C . I have independently interviewed and examined the patient and reviewed pertinent historical, laboratory, and other data. Please refer to Flaco Minor PA-C note for details of this patient's presentation, findings, and recommendations. I have reviewed Flaco Mnior PA-C note and concur with documented findings. In brief, patient is an 82-year-old female admitted with progressive shortness of breath patient admitting diagnoses include acute congestive heart failure, non-ST segment elevation [place] Assessment: 1. Acute systolic congestive heart failure 2. Acute non-STEMI 3. Hypertension 4. Diabetes mellitus type 2 5. Chronic kidney disease stage III 6. Paroxysmal A. fib 7. Physical deconditioning 8. DysLipidemia 9. DVT prophylaxis on [place] [facility] course: As elicited above Total time spent on discharge 45 minutes Code Visit Inpatient E&M: 15163 Disch Hosp
--- NOTE | 2017-10-27 16:42 | DS.PCM_ITS ---
<Flaco Minor - Last Filed: 10/27/17 16:47> Discharge Date and Diagnosis - Problem List Patient Problems: Active and Suspected Problems (Last Reviewed 10/17/17 @ 01:46 by Campos Aquino DO) CAP (community acquired pneumonia) (Acute) NSTEMI (non-ST elevated myocardial infarction) (Acute) Acute on chronic respiratory failure with hypoxia and hypercapnia (Acute) CHF (congestive heart failure) (Acute) LANDRY (acute kidney injury) (Acute) Date of Admission: 10/19/17 Date of Discharge: 10/27/17 - Primary Discharge Diagnosis Active and Suspected Problems (Last Reviewed 10/17/17 @ 01:46 by Campos Aquino DO) NSTEMI (non-ST elevated myocardial infarction) (Acute) Acute on chronic respiratory failure with hypoxia and hypercapnia (Acute) Acute exacerbation of congestive heart failure with intermediate ejection fraction AK I on CKD 3 Hypernatremia Moderate pulmonary hypertension Pneumonia ruled out Hypertension Paroxysmal atrial fibrillation Type 2 diabetes mellitus Contraction alkalosis - Secondary Discharge Diagnosis Chronic Problems (Last Reviewed 10/17/17 @ 01:46 by Campos Aquino DO) Anemia (Chronic) Chronic renal failure, stage 3 (moderate) (Chronic) Type 2 diabetes mellitus (Chronic) Poor dental hygiene (Chronic) History of coronary artery bypass graft (Chronic) Chronic hypoxemic respiratory failure (Chronic) Afib (Chronic) Gastric ulcer (Chronic) Colon polyps (Chronic) CAD (coronary artery disease) (Chronic) Hospital Course and Treatment Imaging Results: RAD/Chest 1 View (Portable) IMPRESSION: Stable exam. RAD/Chest PA and Lateral IMPRESSION: Progressive CHF as compared to prior study. Echo: TR max luisa: 373.0 cm/sec TR max P.7 mmHg Interpretation Summary Mildly dilated left ventricle. Moderate concentric left ventricular hypertrophy. The estimated ejection fraction is 45 %. Mild to moderate segmental systolic dysfunction (see wall motion). The left atrium is moderately enlarged. Moderate (2+) eccentric mitral valve insufficiency. Moderate pulmonary hypertension. Compared to the previous the findings are not completely changed. Cardiac catheterization report: CONCLUSIONS Severe diffuse disease involving the [place] right coronary artery, circumflex artery, and with severe hypokinesis to akinesis of the anterior wall and apex and mild hypokinesis of the basal inferior wall RECOMMENDATIONS Would recommend viability/stress test study as outpatient to see whether patient would benefit from targeted revascularization.. Consults: Juanito- nephrology [facility] - Cardiology Anant - pulmonary Operations: None Procedures: 2-D Echocardiogram, Cardiac catheterization Summary of Care Provided: Physical exam on day of discharge: General: Resting comfortably NAD Psych: A/Ox3 normal affect HEENT: PEARRLA AT NC Neck: Supple NT CV: RRR no m/t/r/g/h Resp: CTA Abd: [id number] Soft NT no guarding or rigidity Ext: DP2+= no edema Skin: W/D normal turgor Lymph/Heme: No active bleeding or adenopathy Neuro: CN2-12 intact Hospital course: The patient is a 82 year old F with history as above who presented to the emergency room with increased dyspnea, found to have elevated troponins and a severely elevated BNP on presentation. Admitted to the cardiac care unit with non-ST segment elevation myocardial infarction and acute intermediate ejection fraction heart failure started on IV Lasix. Developed hypernatremia and LANDRY and contraction alkalosis. Cardiology, pulmonology, and nephrology were consulted. Diuretics were held. The patient underwent a cardiac catheterization which revealed changes as described above. No intervention was provided at this time and it was recommended that the patient undergo viability studies with a stress test as an outpatient. Her medications were adjusted, she is on Norvasc, Eliquis for A. fib, aspirin, statin, metoprolol, indoor, MIGUEL deferred given acute kidney injury. She was maintained on BiPAP at night and will require oxygen going forward. She was also treated by our speech therapist while here for dysphagia, she was able to be advanced to thin liquids diet but will need T need to maintain a mechanical soft diet and supervised feeding with continued speech therapy going forward. After discontinuation of her Lasix her renal function, sodium, alkalosis improved. As she had positive fluid balance over the last few days we will restart her at a lower dose of Lasix at this time-please monitor BMP closely. She will need to follow-up with cardiology for viability study, follow-up nephrology given her acute renal changes over this admission, and follow-up with pulmonology as she has had worsening of her respiratory status. [facility] This patient was seen by Flaco Minor PA-C under the supervision of Doctor Kittoe. [] Discharge Diet: Low fat/ Low Cholesterol, 1800 Calorie Control Diet, 2000 mg Sodium Diet Discharge Activity: Return to Normal Activity Home Medications: Medications to take at Discharge Atorvastatin Calcium [Lipitor] 40 mg PO QHS 04/19/17 Calcium Carbonate/Vitamin D3 [Calcium 500-Vit D3 600 Tablet] 1 each PO BID 04/19 Isosorbide Mononitrate [Imdur] 30 mg PO DAILY 04/19/17 Mirtazapine [Remeron] 15 mg PO QHS 04/19/17 Multivitamin [Daily Multiple Vitamin] 1 each PO DAILY 04/19/17 Omeprazole 40 mg PO DAILY 04/19/17 Acetaminophen [Tylenol Tablet] 650 mg PO Q6H PRN PRN tablet 08/13/17 Amlodipine [Norvasc] 5 mg PO DAILY tablet 10/27/17 Apixaban [Eliquis] 2.5 mg PO BID tablet 10/27/17 Aspirin E.C. [Ecotrin] 81 mg PO DAILY@0800 tablet 10/27/17 Furosemide [Lasix] 40 mg PO DAILY #30 tablet 10/27/17 Glucerna Shake 120 ml PO 4X/DAY liquid 10/27/17 Insulin Glargine [Lantus SoloStar Pen] 20 units SC BID pen 10/27/17 Ipratropium/Albuterol Sulfate [Duoneb] 3 ml INHALATION Q4H.RT PRN ampul.neb Magnesium Hydroxide [Milk Of Magnesia] 30 ml PO DAILY PRN PRN udc 10/27/17 Metoprolol Tartrate [Lopressor (beta rah)] 25 mg PO BID tablet 10/27/17 Following Prescrptions Were Given to Patient: Furosemide [Lasix] 40 mg PO DAILY #30 tablet Primary Care Physician: Eliot Loja MD [Primary Care Provider] - Please follow up with your Primary Care Physician in: 1-2 weeks Please Follow Up With: Ángel Michelle MD When: 2 weeks Please Follow Up With: Shelby Solomon DO When: 2 weeks Disposition: Alf facility Minutes spent on discharge:: 40 Patient Condition:: Stable Medical Necessity - Tobacco Use Smoking Status: Never smoker Meaningful Use Info Meaningful Use Diagnoses (Choose all that apply): AMI - AMI Aspirin given w/in 24hrs of arrival?: Yes ASA at discharge?: Yes Statins at discharge?: Yes Miguel/ARB at discharge?: No Reason Miguel/ARB not ordered:: Allergy, Worsening renal disease Beta Rah at discharge?: Yes Done w/ Acute [place] measure.: Yes <Abdullahi Olea - Last Filed: 10/27/17 17:27> Discharge Date and Diagnosis - Primary Discharge Diagnosis Active and Suspected Problems (Last Reviewed 10/17/17 @ 01:46 by Campos Aquino DO) CAP (community acquired pneumonia) (Acute) NSTEMI (non-ST elevated myocardial infarction) (Acute) Acute on chronic respiratory failure with hypoxia and hypercapnia (Acute) CHF (congestive heart failure) (Acute) LANDRY (acute kidney injury) (Acute) - Secondary Discharge Diagnosis Chronic Problems (Last Reviewed 10/17/17 @ 01:46 by Campos Aquino DO) Anemia (Chronic) Chronic renal failure, stage 3 (moderate) (Chronic) Type 2 diabetes mellitus (Chronic) Poor dental hygiene (Chronic) History of coronary artery bypass graft (Chronic) Chronic hypoxemic respiratory failure (Chronic) Afib (Chronic) Gastric ulcer (Chronic) Colon polyps (Chronic) CAD (coronary artery disease) (Chronic) Hospital Course and Treatment Summary of Care Provided: his patient was seen in conjunction with Flaco Minor PA-C . I have independently interviewed and examined the patient and reviewed pertinent historical, laboratory, and other data. Please refer to Flaco Minor PA-C note for details of this patient's presentation, findings, and recommendations. I have reviewed Flaco Minor PA-C note and concur with documented findings. In brief, patient is an 82-year-old female admitted with progressive shortness of breath patient admitting diagnoses include acute congestive heart failure, non-ST segment elevation [place] Assessment: 1. Acute systolic congestive heart failure 2. Acute non-STEMI 3. Hypertension 4. Diabetes mellitus type 2 5. Chronic kidney disease stage III 6. Paroxysmal A. fib 7. Physical deconditioning 8. DysLipidemia 9. DVT prophylaxis on [facility] course: As elicited above Total time spent on discharge 45 minutes Code Visit Inpatient E&M: 47321 Disch Hosp
--- NOTE | 2017-10-27 16:46 | TREXTCAR_ITS ---
- Diet 10/24/17 09:03 Diet: Cardiac/Low Cholesterol Dietary Modifications:: Mechanical Soft Diet Is pt able to select menu?: Yes Diet Comments: small bites/sips, direct supervision with liquids - Routine Orders/Code Status Suppository Type: Dulcolax 10mg Suppository Frequency: Daily PRN O2 Frequency: PRN Keep PO Greater than or Equal to (%): 90 Routine Lab Work: CBC - 3 days, BMP - 3 days Code Status: Full Code - Wound(s) Right Groin S/P Heart Cath 10/24/17 Wound Type: Puncture - Therapies Physical Therapy: Eval and Treat Occupational Therapy: Eval and Treat Speech Therapy: Eval and Treat - Problem/Diagnosis (1) Acute on chronic respiratory failure with hypoxia and hypercapnia Status: Acute Current Visit: Yes (2) NSTEMI (non-ST elevated myocardial infarction) Status: Acute Current Visit: Yes (3) CHF (congestive heart failure) Status: Acute Current Visit: Yes (4) Chronic renal failure, stage 3 (moderate) Status: Chronic Current Visit: No (5) Type 2 diabetes mellitus Status: Chronic Current Visit: No (6) History of coronary artery bypass graft Status: Chronic Current Visit: No (7) Afib Status: Chronic Current Visit: No (8) CAD (coronary artery disease) Status: Chronic Current Visit: No (9) LANDRY (acute kidney injury) Status: Acute Current Visit: Yes - Allergies/Procedures Done in Hospital Allergies/Adverse Reactions: Allergies LEANDER Inhibitors Allergy (Verified 10/16/17 22:39) Unknown Procedures: 2-D Echocardiogram, Cardiac catheterization - Type of Care/Length of Stay Estimated LOS: Convalescent Care Less Than 30 days Type of Care Needed: Skilled Rehab Potential: Fair Prognosis: Fair - Additional Orders/Day of Discharge Additional Orders: Continue BiPAP at night on current settings. Day of Discharge: 10/27/17 - Dietary and Speech Recommendations Dietitian Recommendations/Changes: Recommend change to low sodium, cardiac, carbohydrate controlled diet- consistency per ADMINISTRATIVE SUPPORT SPECIALIST. Fluid restriction as medically appropriate. Will d/c ensure pudding TID with meals and switch to glucerna 120 ml 4 x / day on medpass d/t elevated BG. - Follow Up Care Primary Care Physician: Eliot Loja MD [Primary Care Provider] - Please follow up with your Primary Care Physician in: 1-2 weeks Please Follow Up With: Ángel Michelle MD When: 2 weeks Please Follow Up With: Shelby Solomon DO When: 2 weeks Please Follow Up With: Wai Padilla DO When: 2 weeks
--- NOTE | 2017-10-27 16:50 | CASEMGMT ---
SEDA spoke with patient's granddaughter and let her know that we received insurance approval today. SEDA told her she will be leaving today probably around 6p. She was okay with this. SEDA called [facility] and arranged for patient to get picked up at 6p via cot. SEDA faxed orders. Convalescent was completed on HENS. Plan: d/c to [facility] under skilled level on a convalescent stay. [facility] transported via cot. Nikki LEDESMA MSW
[2017-10-27 16:51] LABS: Bedside Glucose 109 mg/dL (70-110)
--- NOTE | 2017-10-27 17:37 | NURSING ---
CALLED REPORT TO COLTON ROWLAND AT [facility]. NO QUESTIONS.
--- NOTE | 2017-10-30 10:20 | CCN.REFER ---
PATIENT CURRENTLY AT THE MEDICAL CENTER. WILL PLACE ON HOLD FOR CCN UNTIL PATIENT IS HOME. FAMILY MADE AWARE TO CONTACT CCN WHEN DC THE MEDICAL [facility]ENTER.
== END 2017-10-27 18:30 | disposition skilled nursing facility (03) | DRG 280 ==
LOC: ED 21:16 → MS3 23:55 → PCU 10-20 04:17
PROVIDERS: Internal Medicine; Internal Medicine Cardiovascular Disease; Student in an Organized Health Care Education/Training Program; Admitting Provider Internal Medicine; Emergency Provider Emergency Medicine; Family Provider Internal Medicine; PCP Internal Medicine; Visit Provider Internal Medicine
DX: I21.4 Non-ST elevation (NSTEMI) myocardial infarction (principal); J96.21 Acute and chronic respiratory failure with hypoxia; J96.22 Acute and chronic respiratory failure with hypercapnia; J44.0 Chronic obstructive pulmonary disease with (acute) lower respiratory infection; N17.9 Acute kidney failure, unspecified; E87.0 Hyperosmolality and hypernatremia; I13.0 Hypertensive heart and chronic kidney disease with heart failure and stage 1 through stage 4 chronic kidney disease, or unspecified chronic kidney disease; E87.4 Mixed disorder of acid-base balance; N18.3 Chronic kidney disease, stage 3 (moderate); I48.0 Paroxysmal atrial fibrillation; I27.20 Pulmonary hypertension, unspecified; Z95.1 Presence of aortocoronary bypass graft; I25.10 Atherosclerotic heart disease of native coronary artery without angina pectoris; D64.9 Anemia, unspecified; E11.22 Type 2 diabetes mellitus with diabetic chronic kidney disease; E78.5 Hyperlipidemia, unspecified; Z79.4 Long term (current) use of insulin; I50.9 Heart failure, unspecified; Z99.81 Dependence on supplemental oxygen
CPT/HCPCS: 36415; 36600; 71045; 71046; 80048; 80053; 81001; 82803; 82962; 83605; 83735; 83880; 84132; 84484; 85025; 85610; 85730; 87040; 87086; 87449; 87804; 92507; 92526; 93005; 93306; 93459; 94002; 94003; 94640; 97110; 97116; 97162; 97165; 97530; 97802; 99284; C1760; J7030; J7050; Q9967; A4216; C1769; J1940

== ENCOUNTER → 2017-11-06 16:38 | Outpatient (CLI) | payer MEDICARE, SELFPAY ==
[2017-11-06 17:29] LABS: Hematocrit 35.9 % (37-47); Hemoglobin 9.5 g/dl (12.0-15.0); Mean Corp Hgb Conc 26.5 g/gl (32-36); Mean Corpuscular Hgb 24.4 pg (27.0-32.0); Mean Corpuscular Volume 92.3 fL (81-99); Mean Platelet Vol. 11.5 fl (6.2-12.0); Platelet Count 302 K/mm3 (150-450); RBC Distribution Width CV 18.1 % (11.6-14.6); RBC Distribution Width SD 58.5 fl (35.1-43.9); Red Blood Count 3.89 M/mm3 (4.2-5.4); White Blood Count 7.5 K/mm3 (4.4-11.0)
[2017-11-06 17:34] LABS: Scan Indicated on CBC? Y/N NO
[2017-11-06 17:44] LABS: Albumin, Serum 2.7 g/dL (3.2-5.0); BUN 36 mg/dL (7-18); BUN/Creat Ratio 26.9 RATIO (10-20); Calcium,Total 8.9 mg/dL (8.5-10.1); Chloride 104 mmol/L (98-107); Creatinine, Serum 1.34 mg/dL (0.55-1.02); EST Glomerular Filtration Rate 40 mL/min (>60); Est Glom Filt Rate - Afr Amer 49 mL/min (>60); Glucose 231 mg/dL (74-106); Phosphorus 3.1 mg/dL (2.5-4.9); Potassium 5.5 mmol/L (3.5-5.1); Sodium Level 141 mmol/L (136-145)
== END ==
PROVIDERS: Family Provider Internal Medicine; PCP Internal Medicine; Visit Provider Internal Medicine Nephrology
DX: N18.3 Chronic kidney disease, stage 3 (moderate) (principal)
CPT/HCPCS: 36415; 80069; 85027

== ENCOUNTER → 2017-12-08 11:07 | Outpatient (CLI) | payer MEDICARE, SELFPAY ==
--- NOTE | 2017-12-08 14:54 | STRESSREP ---
Stress Test Report Pharmacologic myocardial perfusion stress test. 82-year-old lady with a history of coronary artery disease. Medications Lipitor calcium isosorbide metoprolol. Stress protocol: Resting EKG demonstrates atrial for ablation with rate of 63 bpm right bundle branch block is noted. Resting blood pressure is 140/72 mmHg. 0.4 mg of regadenoson was infused per usual protocol followed by rapid intravenous saline flush injection continuous EKG monitoring was performed. The patient maintained atrial fibrillation throughout the recording. At rest there were no ST or T-wave changes noted suggest abnormal flow reserve at peak infusion no ST or T-wave changes were noted suggest abnormal flow reserve. The resting blood pressure is 140/72 with a final blood pressure 120/62. Myocardial perfusion protocol. 13.9 mCi of technetium 99m sestamibi was injected at rest 0.4 mg of regadenoson was infused per usual protocol. Peak infusion 41.9 mCi of technetium 99m sestamibi was injected stress images were obtained stress and rest images were reconstructed and compared in the short axis vertical long horizontal long axis. Gated images were also obtained Perfusion SPECT analysis: Review of the stress images demonstrate a normal cardiac silhouette size. There is a medium-sized defect involving the distal anterior wall apex and inferior apical wall. This is present on the stress and rest images to a similar extent. No areas of reversibility are noted suggest ischemia. Gated SPECT analysis: The gated ejection fraction is noted to be 46%. There is apical dyskinesis noted. Conclusion: Pharmacologic myocardial perfusion stress test with evidence of previous anterior apical infarct. Mild LV systolic dysfunction.
== END ==
PROVIDERS: Family Provider Internal Medicine; PCP Internal Medicine; Visit Provider Internal Medicine Cardiovascular Disease
DX: Z95.1 Presence of aortocoronary bypass graft (principal)
CPT/HCPCS: 78452; 93017; A9500; A4216; J2785

== ENCOUNTER → 2018-09-21 09:34 | Outpatient (CLI) | payer MEDICARE, SELFPAY ==
[2018-09-21 09:04] VITALS: BMI 34.8
[2018-09-21 10:24] LABS: Anion Gap 3 (5-15); BUN 27 mg/dL (7-18); BUN/Creat Ratio 19.6 RATIO (10-20); Calcium,Total 8.7 mg/dL (8.5-10.1); Chloride 103 mmol/L (98-107); Creatinine, Serum 1.38 mg/dL (0.55-1.02); EST Glomerular Filtration Rate 39 mL/min (>60); Est Glom Filt Rate - Afr Amer 47 mL/min (>60); Glucose 313 mg/dL (74-106); Potassium 4.8 mmol/L (3.5-5.1); Sodium Level 137 mmol/L (136-145)
[2018-09-21 10:34] LABS: BNP,B-Type NATRIURETIC PEPTIDE 195.9 pg/mL (0-100)
== END ==
PROVIDERS: Family Provider Internal Medicine; PCP Internal Medicine; Referring Provider Nurse Practitioner Acute Care; Visit Provider Nurse Practitioner Acute Care
DX: I21.4 Non-ST elevation (NSTEMI) myocardial infarction (principal); R06.01 Orthopnea
CPT/HCPCS: 36415; 80048; 83880

== ENCOUNTER → 2018-09-21 | Outpatient (CLI) | payer MEDICARE, SELFPAY ==
[2018-09-21 09:04] VITALS: BMI 34.8
== END | disposition home or self-care (01) ==
PROVIDERS: Family Provider Internal Medicine; PCP Internal Medicine; Referring Provider Nurse Practitioner Acute Care; Visit Provider Nurse Practitioner Acute Care
DX: I21.4 Non-ST elevation (NSTEMI) myocardial infarction (principal); R06.01 Orthopnea; Z76.89 Persons encountering health services in other specified circumstances; G47.33 Obstructive sleep apnea (adult) (pediatric)
CPT/HCPCS: 36415; 80048; 83880; 95811

== ENCOUNTER → 2019-09-13 | Outpatient (CLI) | payer MEDICARE, MEDICAID, SELFPAY ==
[2019-02-25 09:54] VITALS: BMI 33.1
== END | disposition home or self-care (01) ==
PROVIDERS: PCP Internal Medicine; Referring Provider Internal Medicine; Visit Provider Internal Medicine
DX: U07.1 COVID-19 (principal)
CPT/HCPCS: 87635; U0003

== ENCOUNTER → 2019-09-21 | Outpatient (CLI) | payer MEDICARE, MEDICAID, SELFPAY ==
[2019-02-25 09:54] VITALS: BMI 33.1
== END | disposition home or self-care (01) ==
LOC: LABSPEC 14:40
PROVIDERS: PCP Internal Medicine; Visit Provider Nurse Practitioner Adult Health
DX: Z51.89 Encounter for other specified aftercare (principal)
CPT/HCPCS: 87635; U0003

== ENCOUNTER → 2019-09-21 | Outpatient (CLI) | payer MEDICARE, MEDICAID, SELFPAY ==
[2019-02-25 09:54] VITALS: BMI 33.1
== END | disposition home or self-care (01) ==
PROVIDERS: PCP Internal Medicine; Visit Provider Nurse Practitioner
DX: Z51.89 Encounter for other specified aftercare (principal)

== ENCOUNTER 2019-10-11 00:28 | Inpatient (IN) | payer MEDICARE, MEDICAID, SELFPAY ==
[2019-10-05 14:24] VITALS: BMI 33.3
[2019-10-11] VITALS (27 sets, daily range): BP systolic 152–197; BP diastolic 60–82; PULSE 64–95; RESP 16–24; TEMP 36.2–36.9; O2SAT 89–98; BMI 37.7; BMI 33.7; BMI 33.8
--- NOTE | 2019-10-11 00:43 | EKG12_ITS ---
Test Reason : SOB Blood Pressure : / mmHG Vent. Rate : 069 BPM Atrial Rate : 069 BPM P-R Int : 190 ms QRS Dur : 124 ms QT Int : 434 ms P-R-T Axes : 091 -20 077 degrees QTc Int : 465 ms Normal sinus rhythm Right bundle branch block Abnormal ECG Confirmed by ISIDRA ALAS ([id number]), mapping editor LEVON MCCALL ([id number]) on 10/14/2019 11:56:20 AM Referred By: Koby Cunha Confirmed By:ISIDRA ALAS
--- NOTE | 2019-10-11 00:43 | RAD_ITS ---
HISTORY: CHEST PAIN, SHORTNESS OF BREATH, COUGH. EXAM: XR Chest 1 View: COMPARISON: Comparison study is October 20, 2017 FINDINGS: # of images incl. paperwork: 1 Sternal wires persists. The top 3 sternal wires, likely in the manubrium, remain broken. Shoulder arthritis, right greater than left is similar Bilateral airspace disease persists. The severity of the disease is less than that of the previous study Heart is enlarged. Scoliosis with multilevel degenerative disc disease persists Pulmonary vascularity is indistinct. Likely small bilateral pleural effusions. RAD/Chest 1 View (Portable) IMPRESSION: Persistent bilateral lower lung airspace disease to a lesser degree of severity than the previous study of October 20, 2017. at 0212 Reported and signed by: Jimenez Pretty MD Electronically Signed: Jimenez Pretty MD at 2:11 EDT Tel , Service support ,
--- NOTE | 2019-10-11 00:45 | ED.DCSUM_ITS ---
- ER Visit Summary Date of Service: 10/11/19 Chief Complaint: Shortness of breath with hypoxia History of Present Illness: The patient is a 84 F from a [place] [facility] that is very hard of hearing. She has an extensive past medical history of CAD with a prior CABG, A. fib on Eliquis, CHF, ischemic cardiomyopathy, COPD on 4 L of oxygen, recently COVID positive about 4 weeks ago. History also diabetes, hypertension, high cholesterol, anemia and valvular insufficiency. Reportedly has been short of breath since she was COVID positive and has been on oxygen for several weeks. More short of breath today with periods of hypoxia with a pulse ox in the 80s. She denies any chest pain or fever. No hemoptysis. Physical Examination: Elderly female vital signs stable except she is hypoxic at 89 on 4 L. H EENT exam unremarkable. Neck nontender. No JVD. No lymphadenopathy. Lungs coarse breath sounds. Expiratory wheezes. No rales or rhonchi. Equal symmetrical. Heart regular rhythm rate about 76. Abdomen soft nontender normal bowel sounds no peritoneal signs. Patient is moving all 4 extremities. Calves are nontender without edema or cords. Neurologically she is awake and alert. She is very hard of hearing. She seems to follow commands and answer questions however. Test Results: Chest x-ray shows bilateral lower lobe airspace disease with both lumens of the radiologist. Seen on prior x-ray. EKG normal sinus rhythm rate of 69 no acute signs of CO or ischemia. With a right bundle branch block. CBC white count 9. Hemoglobin 12. No bands. Chemistries unremarkable BUN 26 creatinine 1.1 normal gap. Troponin normal. BNP elevated at 585. Emergency Department Course and Treatment: Only female with known CHF, COPD has been requiring O2 after being COVID positive approximately 4 weeks ago. Treated with IV Solu-Medrol. Aerosols. Worked up for differential diagnosis of shortness of breath. Treatment Plan: Repeat exam patient is resting comfortably at oh 2:30 AM. She seems to be improved after the treatments. Wheezing is resolved. I did speak to the [place] [facility] [place]. They state that she is requiring more oxygen and having increased episodes of hypoxia. For that reason she will be admitted. This could be all secondary to COVID versus pneumonia versus COPD flare versus CHF or combination of the above. I discussed all this with the hospitalist. She will be started on IV Levaquin. Disposition: Admission Impression: Acute dyspnea with hypoxia History of recent COVID positive History of COPD flare CHF Rule out pneumonia History of CHF and ischemic cardiomyopathy History of diabetes This note was generated with [employer] dictation software. It may contain incorrect words, spelling, and punctuation that were not noted in review of the chart prior to signing ED Disposition - Plan for ED Patient: Referrals: Eliot Loja MD [Primary Care Provider] -
--- NOTE | 2019-10-11 00:51 | ED.RN ---
Spoke with RN from [facility] who told this RN that pt was screaming and in a panic due to shortness of breath. pt was 88% on 3L nasal cannula. Also informed this RN that pt tested negative for covid on 08.24.19.
[2019-10-11] MEDS: MethylPREDNISolone 125 MG/2 ML Vial IV (00:57)
[2019-10-11 00:58] LABS: Absolute Lymphocyte Count 1.44 X10^3/uL (0.83-4.51); Absolute Neutrophil Count 7.2 X10^3/uL (2.0-7.7); Basophil# 0.03 X10^3/uL; Basophil% 0.3 % (0-1); Eosinophil# 0.28 X10^3/uL; Eosinophils% 2.9 % (0-5); Hematocrit 38.7 % (37-47); Hemoglobin 12.2 g/dL (12.0-15.0); Lymphocyte # 1.44 X10^3/ul (4.0); Lymphocyte % 14.8 % (19-41); Mean Corp Hgb Conc 31.5 g/dL (32-36); Mean Corpuscular Hgb 31.4 pg (27.0-32.0); Mean Corpuscular Volume 99.7 fL (81-99); Mean Platelet Vol. 11.1 fl (6.2-12.0); Monocyte# 0.76 X10^3/uL; Monocyte% 7.8 % (0-10); NRBC Flagged by Analyzer 0 % (0-5); Neutrophil # 7.19 X10^3/uL (2.7-7.7); Neutrophil % 73.9 % (47-70); Platelet Count 168 K/mm3 (150-450); RBC Distribution Width CV 14.1 % (11.6-14.6); RBC Distribution Width SD 51.2 fl (35.1-43.9); Red Blood Count 3.88 M/mm3 (4.2-5.4); White Blood Count 9.7 K/mm3 (4.4-11.0)
[2019-10-11] MEDS: Ipratropium/Albuterol Sulfate 3 ML AMPUL.NEB INHALATION ×5 (01:11→18:49)
[2019-10-11] MEDS: Albuterol 2.5 MG/3 ML VIAL.NEB. INHALATION (01:11)
[2019-10-11 01:18] LABS: Anion Gap 5 (5-15); BUN 26 mg/dL (7-18); Calcium,Total 8.8 mg/dL (8.5-10.1); Chloride 111 mmol/L (98-107); Creatinine, Serum 1.13 mg/dL (0.55-1.02); EST Glomerular Filtration Rate 49 mL/min (>60); Est Glom Filt Rate - Afr Amer 59 mL/min (>60); Estimated Creatinine Clearance 29.83 ml/min; Glucose 149 mg/dL (74-106); Sodium Level 143 mmol/L (136-145)
[2019-10-11 01:39] LABS: BNP,B-Type NATRIURETIC PEPTIDE 585.6 pg/mL (0-100)
--- NOTE | 2019-10-11 02:29 | PCM.HP.STD ---
Problem List (1) Atherosclerosis of coronary artery of [place] heart without angina pectoris Status: Chronic Qualifiers: Coronary Disease-Associated Artery/Lesion type: [place] artery Qualified Code(s): I25.10 - Atherosclerotic heart disease of [place] coronary artery without angina pectoris (2) Atherosclerosis of coronary artery bypass graft without angina pectoris Status: Chronic Qualifiers: [place] vs. transplanted heart: [place] heart Qualified Code(s): I25.810 - Atherosclerosis of coronary artery bypass graft(s) without angina pectoris (3) Old anterior wall myocardial infarction Status: Chronic (4) Ischemic cardiomyopathy Status: Chronic (5) Acute on chronic combined systolic and diastolic heart failure Status: Chronic (6) Paroxysmal atrial fibrillation Status: Chronic (7) Nonrheumatic mitral (valve) insufficiency Status: Chronic (8) Non-rheumatic tricuspid valve insufficiency Status: Chronic (9) Secondary pulmonary arterial hypertension Status: Chronic (10) COPD exacerbation Status: Acute History of Present Illness Date of Admission: 10/11/19 Chief Complaint: SOB The patient is a 84 year old F with a significant history of systolic and diastolic heart failure; paroxysmal A. fib; diabetes mellitus; and COVID 19 infection who presented to the emergency department with shortness of breath. Patient is very hard of hearing so history was written and patient verbally answered it. Upon repeated questioning she stated that she does not know when her symptoms started. She reports paroxysmal nocturnal dyspnea and orthopnea. She denies any weight gain. She reports some weight loss. She denies any swelling in extremities. Patient lives at [facility]. She contracted covid19 infection about 4 weeks ago. Indeed in our hospital system; on 09/13/2019 she tested positive for COVID-19 ELISE test. She had a negative COVID-19 test on 09/21/2019. She was previously not on oxygen but after her covid-19 infection she has required oxygen 2 L to 4 L per nasal cannula. However on the day of presentation even on 4 L of nasal cannula she was hypoxic. Emergency department doctor reported wheezing on examination. Past Medical History Past Medical History (Chronic Problems): Chronic Problems (Last Reviewed 10/11/19 @ 04:[address] Koby Cunha MD) Atherosclerosis of coronary artery of [place] heart without angina pectoris (Chronic) Atherosclerosis of coronary artery bypass graft without angina pectoris (Chronic) Old anterior wall myocardial infarction (Chronic) Ischemic cardiomyopathy (Chronic) Acute on chronic combined systolic and diastolic heart failure (Chronic) Paroxysmal atrial fibrillation (Chronic) Nonrheumatic mitral (valve) insufficiency (Chronic) Non-rheumatic tricuspid valve insufficiency (Chronic) Secondary pulmonary arterial hypertension (Chronic) Medical History: Medical History (Last Reviewed 10/11/19 @ 05:[address] Koby Cunha MD) Atherosclerosis of coronary artery of [place] heart without angina pectoris (Chronic) I25.10 Atherosclerosis of coronary artery bypass graft without angina pectoris (Chronic) I25.810 Old anterior wall myocardial infarction (Chronic) I25.2 NSTEMI (non-ST elevated myocardial infarction) (Resolved) Onset Date: 10/20/17 I21.4 Ischemic cardiomyopathy (Chronic) I25.5 Acute on chronic combined systolic and diastolic heart failure (Chronic) I50.43 Paroxysmal atrial fibrillation (Chronic) I48.0 Nonrheumatic mitral (valve) insufficiency (Chronic) I34.0 Non-rheumatic tricuspid valve insufficiency (Chronic) I36.1 Secondary pulmonary arterial hypertension (Chronic) I27.21 Anemia D64.9 Chronic hypoxemic respiratory failure J96.11 Chronic renal failure, stage 3 (moderate) N18.3 Colon polyp K63.5 Gastric ulcer K25.9 Obesity E66.9 Type 2 diabetes mellitus E11.9 ANA (obstructive sleep apnea) (Inactive) G47.33 Allergies LEANDER Inhibitors Allergy (Verified 02/25/19 09:54) Unknown Home Medications: Ambulatory Orders Medication Instructions Recorded Calcium Carbonate/Vitamin D3 1 ea PO BID 04/19/17 [Calcium 500-Vit D3 600 Tablet] Omeprazole 40 mg PO DAILY 04/19/17 Apixaban [Eliquis] 2.5 mg PO BID tab 10/27/17 Aspirin E.C. [Ecotrin] 81 mg PO DAILY@0800 tab 10/27/17 Magnesium Hydroxide [Milk Of 30 ml PO DAILY PRN PRN udc 10/27/17 Magnesia] Metoprolol Tartrate [Lopressor 25 mg PO BID tab 10/27/17 (beta joan)] nystatin 100,000 unit/gram topical 1 applic TOPICAL BID 02/24/18 powder amlodipine 10 mg tablet 10 mg PO DAILY 09/08/18 atorvastatin 40 mg tablet 40 mg PO DAILY 02/25/19 bisacodyl 10 mg rectal suppository 10 mg RC DAILY PRN PRN 02/25/19 clonidine 0.1 mg/24 hr weekly 1 patch TRANSDERMAL QWEEK 02/25/19 transdermal patch furosemide 40 mg tablet 40 mg PO DAILY tab 10/05/19 isosorbide mononitrate 60 mg 60 mg PO DAILY 10/05/19 tablet,extended release 24 hr Acetaminophen [Tylenol Tablet] 650 mg PO Q4H PRN PRN 10/11/19 Docusate Sodium [Colace] 100 mg PO BID 10/11/19 Insulin Aspart [Novolog Flexpen 10 units SUBCUT TIDCM 10/11/19 ([facility])] Insulin Aspart [Novolog Flexpen See Protocol SUBCUT TIDCM 10/11/19 ([facility])] Insulin Glargine [Lantus SoloStar 60 units SUBCUT QHS 10/11/19 Pen] Ipratropium [place] [Atrovent Hfa] 2 puff IH Q4H PRN PRN 10/11/19 Surgical History: Surgical History (Last Reviewed 10/11/19 @ 05:[address] Koby uCnha MD) H/O coronary artery bypass surgery (Resolved) Z95.1 CABG x 3 POSADAS-LAD, SVG-OM2, SVG-D2 History of appendectomy Z90.49 History of left heart catheterization Onset Date: 10/24/17 Z98.890 Severe diffuse disease involving the [place] right coronary artery, circumflex artery, and with severe hypokinesis to akinesis of the anterior wall and apex and mild hypokinesis of the basal inferior wall Saphenous Vein graft to the 2nd OM is patent Saphenous Vein graft to the 2nd Diagonal is totally occluded POSADAS graft to the Mid LAD is patent EF 40 % History of tonsillectomy and adenoidectomy Z98.890 Hx of cholecystectomy Z90.49 Surgical History: coronary bypass surgery, - - appendectemy, cholecystectemy, tonsil and adenoids, cabg - she cannot having any stents Psychiatric History: Depression 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 Denies: Cough, Shortness of breath at rest, Sputum production Gastrointestinal: Denies: Abdominal Pain, Nausea, Vomiting Genitourinary: Denies: Dysuria Musculoskeletal: Denies: Joint Pain, Joint Tenderness Skin: Denies: Rash, Wounds Neurological: Denies: Numbness, Tingling, Focal weakness Psychiatric: Denies: Anxiety, Depression, Homicidal Ideations, Suicidal Ideations Hematologic/ Lymphatic: Denies: Easy Bruising, Easy Bleeding VTE Information - Inpt Only VTE Present on Admission: No VTE Mechan Device Prophylaxis: None VTE Pharm Prophylaxis ordered?: No Reason prophylaxis not ordered:: Treatment Not Indicated - Eliquis for A. fib continued Patient Problems: Active and Suspected Problems (Last Reviewed 10/11/19 @ 04:[address] Koby Cunha MD) COPD exacerbation (Acute) - Physical Exam Vitals/I&O's: Vital Signs Temp Pulse Resp BP Pulse Ox 98.4 F 71 17 184/60 H 92 10/11/19 01:33 10/11/19 01:33 10/11/19 01:33 10/11/19 01:33 10/11/19 01:33 Oxygen Flow Rate (L/min) 5 Oxygen Delivery Method Nasal Cannula Weight: 93.5 kg Body Mass Index (BMI) 37.7 Finger Stick Blood Glucose 65 General: Alert, Oriented x3, Cooperative HEENT: Atraumatic, PERRLA, EOMI, Normocephalic Neck: Supple, Trachea Midline Lungs: Diminished, Rhonchi - Mild, Tachypneic, Using Accessory Muscles Cardiovascular: Regular rate, Normal S1, Normal S2, No murmurs Abdomen: Bowel Sounds Present, Soft, Non Tender Extremities: No edema, Capillary Refill Less than 3 Seconds Skin: No rashes, No breakdown Musculoskeletal: No Tenderness to Palpation of Joints or Extremities Neurological: Cranial nerves II-XII grossly intact Psych/Mental Status: Normal Affect, Appropriate Laboratory Results 10/11/19 00:40: WBC 9.7, RBC 3.88 L, Hgb 12.2, Hct 38.7, MCV 99.7 H, MCH 31.4, MCHC 31.5 L, RDW Std Deviation 51.2 H, RDW Coeff of Deepali 14.1, Plt Count 168, MPV 11.1, Immature Gran % (Auto) 0.300, Neut % (Auto) 73.9 H, Lymph % (Auto) 14.8 L, [place] % (Auto) 7.8, Eos % (Auto) 2.9, Baso % (Auto) 0.3, Absolute Neuts (auto) 7.2, Absolute Lymphs (auto) 1.44, Nucleated RBC % 0 10/11/19 00:40: Sodium 143, Potassium 5.0, Chloride 111 H, Carbon Dioxide 27.0, Anion Gap 5, BUN 26 H, Creatinine 1.13 H, Estim Creat Clear Calc 29.83, Est GFR (MDRD) Af Amer 59 L, Est GFR (MDRD) Non-Af 49 L, BUN/Creatinine Ratio 23.0 H, Glucose 149 H, Calcium 8.8, Troponin I < 0.015 10/11/19 00:40: B-Natriuretic Peptide 585.6 H Assessment/Plan All Active Problems (Last Reviewed 10/11/19 @ 04:[address] Koby Cunha MD) COPD exacerbation (Acute) NSTEMI (non-ST elevated myocardial infarction) (Resolved 10/20/17) H/O coronary artery bypass surgery (Resolved) LANDRY (acute kidney injury) (Resolved) Acute kidney injury superimposed on chronic kidney disease (Resolved) Acute on chronic respiratory failure with hypoxia and hypercapnia (Resolved) Acute respiratory failure with hypoxia (Resolved) CAP (community acquired pneumonia) (Resolved) COPD exacerbation (Resolved) Chest pain (Resolved) Fall (Resolved) Hyperkalemia (Resolved) Orthopnea (Resolved) The patient is a 84 year old F with a significant history of systolic and diastolic heart failure; paroxysmal A. fib; diabetes mellitus; and COVID 19 infection who presented to the emergency department with shortness of breath; paroxysmal nocturnal dyspnea; orthopnea and with reported wheezing on examination. Acute COPD exacerbation Actual CXR imaging independently reviewed: Bilateral infiltrates with blunting of right side costophrenic angle.. Review of old records shows improvement in bilateral infiltrates. EKG independently reviewed confirms right bundle branch block. Old records reviewed showed right bundle surjit block. Scheduled DuoNeb Albuterol as needed Received Solu-Medrol 125 mg IV at emergency department. Solu-Medrol 40 mg every 8 hours ordered. Placed on Levaquin 750 mg every 48 hours; adjusted for creatinine clearance. Oxygen as needed. Monitor BMP and CBC Chronic combined systolic and diastolic heart failure. Echocardiogram on 10/20/2017 showed left ventricular ejection fraction of 45% with multiple areas of hypokinesis. Moderate eccentric mitral valve insufficiency. Moderate tricuspid valve insufficiency. Pulmonary artery systolic pressure was 59 mmHg indicating moderate pulmonary hypertension. Mild eccentric aortic valve insufficiency. Mild pulmonary valve insufficiency. Her many checks x-rays on file shows bilateral infiltrates. Current chest x-ray appears improved from previous. Her BNP on presentation was 585.6. Review of old records shows a persistent elevation of BNP. She denies weight increase. She has orthopnea and proximal nocturnal dyspnea that could also be from COPD exacerbation. There is no convincing indication that she is having a flare of heart failure. We will continue home Lasix for now. Check daily weights. Fluid restriction Strict intake and outputs. Metoprolol continued. Patient is allergic to lisinopril. Diabetes mellitus Patient with hyperglycemia on presentation. Blood glucose is 149 which is within hospital goal of 140-80. De-escalate home basal and home prandial insulin. Continue correction scale insulin. Hypertensive urgency Patient with systolic blood pressure of more than 180 Amlodipine continued Imdur continued Lasix continued Metoprolol continued Add PRN labetalol. CAD status post CABG Per cardiology (Dr. Michelle) notes on 10/05/2019 patient had last heart catheterization on 2017. The heart cath demonstrated patency of POSADAS to the LAD; patency of saphenous vein graft to obtuse marginal; and an occluded saphenous vein graft. Her plan with cardiology is medical therapy. Aspirin continued Eliquis continued Imdur continued DVT prophylaxis Not indicated since patient is on Eliquis for A. fib. Eliquis continued. Inpatient E&M: 62176 Init Hosp L3
--- NOTE | 2019-10-11 03:50 | ECHOCS_ITS ---
Reason For Study: SOB Procedure This was a 2D Doppler, Color Flow transthoracic echocardiogram. The study was technically difficult. Patient was scanned sitting up due to SOB. Exam performed portable in patient room. Left Ventricle Normal LV size. Moderate concentric left ventricular hypertrophy. The estimated ejection fraction is 50 %. Stage 2 diastolic dysfunction. Septal [place] : Akinetic. Inferior [place] : Akinetic. Lateral [place] : Hypokinetic. Anterior [place] : Hypokinetic. The rest of the wall segments are normal. Right Ventricle Normal RV size. Normal systolic function. Atria The left atrium is moderately enlarged. Normal right atrium. Mitral Valve Normal mitral valve. Mild (1+) eccentric mitral valve insufficiency. Tricuspid Valve Normal tricuspid valve. Mild (1+) tricuspid valve insufficiency. Pulmonary artery systolic pressure is 33 mmHg. Aortic Valve Trisinus/trileaflet aortic valve. Mild focal aortic valve calcification. Mild (1+) aortic valve insufficiency. Medication Diluted definity 2ml given slow IV push to enhance endocardial definition. MMode/2D Measurements & Calculations LVIDd: 5.6 cm IVSd: 1.7 cm LVOT diam: 2.3 cm LVIDs: 3.7 cm LVPWd: 1.6 cm LVOT area: 4.1 cm2 RVDd: 4.0 cm FS: 34.3 % Ao root diam: 3.4 cm LAV(MOD-bp): 114.5 ml LA A4 area: 32.8 cm2 LAV(MOD-bp) Indexed: 60.4 ml/m2 LAV(MOD-sp2): 100.2 ml LAV(MOD-sp4): 125.6 ml LA dimension(2D): 5.3 cm RA A4 area: 18.4 cm2 Doppler Measurements & Calculations MV E max galileo: 143.8 cm/sec Lat Peak E' Galileo: 6.4 cm/sec Med Peak E' Galileo: 4.7 cm/sec MV A max galileo: 124.0 cm/sec E/E' lat: 22.5 E/E' med: 30.5 MV E/A: 1.2 Ao V2 max: 181.2 cm/sec LV V1 max: 123.7 cm/sec SV(LVOT): 107.6 ml Ao max P.1 mmHg LV V1 max P.1 mmHg Ao V2 mean: 117.6 cm/sec LV V1 mean P.1 mmHg Ao mean P.3 mmHg LV V1 mean: 82.0 cm/sec Ao V2 VTI: 36.7 cm LV V1 VTI: 26.2 cm GIL(I,D): 2.9 cm2 GIL(V,D): 2.8 cm2 PA V2 max: 165.7 cm/sec TR max galileo: 279.4 cm/sec TR max P.3 mmHg Interpretation Summary Normal LV size. The estimated ejection fraction is 50 %. Moderate concentric left ventricular hypertrophy. Stage 2 diastolic dysfunction. Contrast injection was performed. Compared to previous study, the left ventricular systolic function has improved.. Ordering Physician: Koby Cunha Referring Physician: Eliot Loja M.D. Performed By: Marisela Nails RDCS
[2019-10-11] MEDS: 0.9% Saline Lock 10 ML Syringe IV ×6 (05:02→22:12)
[2019-10-11] MEDS: levoFLOXacin IV 750 MG/150 ML BAG 100 MG IV (05:02)
[2019-10-11 07:06] LABS: Bedside Glucose 209 mg/dL (70-110)
--- NOTE | 2019-10-11 07:26 | CPS ---
pt decreased to 4lpm...96%. Charge nurse,Collette aware of change.
[2019-10-11] MEDS: Insulin Lispro 100 UNIT/ML INSULN.PEN SC ×7 (08:43→22:04)
[2019-10-11 08:51] LABS: Bedside Glucose 295 mg/dL (70-110)
[2019-10-11] MEDS: Aspirin E.C. 81 MG Tablet PO (09:19)
[2019-10-11] MEDS: Docusate Sodium 100 MG Capsule PO ×2 (09:19→21:58)
[2019-10-11] MEDS: Calcium Carb/Vitamin D 1 TABLET Tablet PO ×2 (09:19→16:12)
[2019-10-11] MEDS: APIXABAN 2.5 MG TABLET PO ×2 (09:19→21:58)
[2019-10-11] MEDS: Nystatin Powder 15gm Bottle 1 APPLIC TOPICAL ×2 (09:19→21:59)
[2019-10-11] MEDS: Pantoprazole Sodium 40 MG Tablet PO (09:20)
[2019-10-11] MEDS: Isosorbide Mononitrate 60 MG Tablet PO (09:20)
[2019-10-11] MEDS: Metoprolol Tartrate 25 MG Tablet PO ×2 (09:20→21:58)
[2019-10-11] MEDS: amLODIPine 10 MG Tablet PO (09:20)
--- NOTE | 2019-10-11 09:37 | CT_ITS ---
STUDY: CT CHEST WITHOUT CONTRAST REASON FOR EXAM: Female, 84 years old. POSSIBLE HCAP RADIATION DOSAGE (If Supplied By Facility): CTDIvol = ( 19.77 ) mGy, DLP = ( 612.53 ) mGycm TECHNIQUE: Transaxial imaging was performed without the administration of intravenous contrast material. Multiplanar coronal and sagittal images were reformatted. Individualized dose optimization techniques were used for this CT. COMPARISON: Comparison is made with prior study dated August 30, 2015. FINDINGS: Mild heterogeneity of the thyroid gland. Small bilateral pleural effusions right than left with increased interstitial markings with areas of groundglass appearance in both lungs. This is suggestive of a mild degree of the CHF. There is no demonstrated pleural abnormality. There are calcifications of the coronary arteries. Moderate cardiomegaly with enlargement of the left ventricle. Prior CABG. There are multiple small lymph nodes within the mediastinum, which are normal in size and morphology most compatible with reactive lymph hyperplasia. Normal hilar regions. Normal unenhanced pulmonary arteries. There is atherosclerotic calcification of the aortic arch with tortuosity and elongation of the aortic arch and descending thoracic aorta. There are multi-level degenerative changes of the thoracic spine. There is no demonstrated abnormality of the visualized upper abdomen. CT/Chest without Contrast IMPRESSION: Findings suggestive of small bilateral effusions with bilateral groundglass appearance of the lungs with a mild degree of CHF. Follow-up is recommended. Moderate sized cardiomegaly with enlargement of the left ventricle. Electronically Signed: Sergio Leon, at 14:29 EDT , Service support ,
--- NOTE | 2019-10-11 09:40 | CON.PCM_ITS ---
Reason for Consult Date of Consultation: 10/11/19 Reason for Consultation: Acute on chronic respiratory failure History of Present Illness: The patient is an 84-year-old female, with a history as outlined below, who presented from [facility] on October 10 with complaints of shortn ess of breath. The patient has a known history of obstructive sleep apnea, coronary artery disease status post CABG, paroxysmal atrial fibrillation, congestive heart failure and pulmonary hypertension. She is currently followed by Dr. Michelle in the cardiology clinic. The patient was seen in the pulmonary medicine clinic in November 2017 over concerns for sleep apnea. A split-night sleep study was then completed, for which nocturnal CPAP therapy was recommended. The patient was supposed to follow-up but failed to do so. She then once again presented to the pulmonary clinic for an acute visit in September 2018 due to shortness of breath. Subsequent work-up revealed that the patient was in a state of decompensated heart failure. In addition to the aforementioned, the patient also apparently tested positive for coronavirus during the first half of August. On presentation to the emergency department, the patient was noted to be afebrile but was hypertensive with a blood pressure of 197/74. The patient was tachypneic and hypoxemic, requiring 5 L/min of supplemental oxygen. Laboratory evaluation revealed a normal white blood cell count. Chemistry profile was notable for a creatinine of 1.13. Troponin was negative. BNP was elevated to 585. Plain film chest x-ray revealed bilateral lower lobe airspace disease, right greater than left. The patient was subsequently admitted to the pr ogressive care unit for further management. Past Medical History Past Medical History (Chronic Problems): Chronic Problems (Last Reviewed 10/11/19 @ 05:[address] 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) I50.43 Paroxysmal atrial fibrillation (Chronic) I48.0 Nonrheumatic mitral (valve) insufficiency (Chronic) I34.0 Non-rheumatic tricuspid valve insufficiency (Chronic) I36.1 Secondary pulmonary arterial hypertension (Chronic) I27.21 Anemia D64.9 Chronic hypoxemic respiratory failure J96.11 Chronic renal failure, stage 3 (moderate) N18.3 Colon polyp K63.5 Gastric ulcer K25.9 Obesity E66.9 Type 2 diabetes mellitus E11.9 ANA (obstructive sleep apnea) (Inactive) G47.33 Allergies LEANDER Inhibitors Allergy (Verified 10/11/19 08:19) Unknown Home Medications: Ambulatory Orders Medication Instructions Recorded Calcium Carbonate/Vitamin D3 1 ea PO BID 04/19/17 [Calcium 500-Vit D3 600 Tablet] Omeprazole 40 mg PO DAILY 04/19/17 Apixaban [Eliquis] 2.5 mg PO BID tab 10/27/17 Aspirin E.C. [Ecotrin] 81 mg PO DAILY@0800 tab 10/27/17 Magnesium Hydroxide [Milk Of 30 ml PO DAILY PRN PRN udc 10/27/17 Magnesia] Metoprolol Tartrate [Lopressor 25 mg PO BID tab 10/27/17 (beta rah)] nystatin 100,000 unit/gram topical 1 applic TOPICAL BID 02/24/18 powder amlodipine 10 mg tablet 10 mg PO DAILY 09/08/18 atorvastatin 40 mg tablet 40 mg PO QHS 02/25/19 bisacodyl 10 mg rectal suppository 10 mg RC DAILY PRN PRN 02/25/19 clonidine 0.1 mg/24 hr weekly 1 patch TRANSDERMAL QWEEK 02/25/19 transdermal patch furosemide 40 mg tablet 40 mg PO DAILY tab 10/05/19 isosorbide mononitrate 60 mg 60 mg PO DAILY 10/05/19 tablet,extended release 24 hr Acetaminophen [Tylenol Tablet] 650 mg PO Q4H PRN PRN 10/11/19 Acetaminophen [Tylenol] 650 mg RECTAL Q4H PRN PRN 10/11/19 Antacid Suspension PRN 10/11/19 Docusate Sodium [Colace] 100 mg PO BID 10/11/19 Guaifenesin [Robitussin] 10 ml PO Q4H PRN PRN 10/11/19 Insulin Aspart [Novolog Flexpen 10 units SUBCUT TIDCM 10/11/19 ([facility])] Insulin Aspart [Novolog Flexpen See Protocol SUBCUT TIDCM 10/11/19 ([facility])] Insulin Glargine [Lantus SoloStar 60 units SUBCUT QHS 10/11/19 Pen] Ipratropium [place] [Atrovent Hfa] 2 puff IH Q4H PRN PRN 10/11/19 Surgical History: Surgical History (Last Reviewed 10/11/19 @ 05:[address] Koby Cunha MD) H/O coronary artery bypass surgery (Resolved) Z95.1 CABG x 3 POSADAS-LAD, SVG-OM2, SVG-D2 History of appendectomy Z90.49 History of left heart catheterization Onset Date: 10/24/17 Z98.890 Severe diffuse disease involving the [place] right coronary artery, circumflex artery, and with severe hypokinesis to akinesis of the anterior wall and apex and mild hypokinesis of the basal inferior wall Saphenous Vein graft to the 2nd OM is patent Saphenous Vein graft to the 2nd Diagonal is totally occluded POSADAS graft to the Mid LAD is patent EF 40 % History of tonsillectomy and adenoidectomy Z98.890 Hx of cholecystectomy Z90.49 Surgical History: coronary bypass surgery, - - appendectemy, cholecystectemy, tonsil and adenoids, cabg - she cannot having any stents Psychiatric History: Depression SUPERIOR COURT JUSTICE History: No pertinent SUPERIOR COURT JUSTICE history Smoking Status: Never smoker - *Family History Paternal History Items: Diabetes, Heart Disease, Hypertension Maternal History Items: Diabetes, Heart Disease Review of Systems Constitutional: Denies: Chills, Fever Eyes: Denies: Blurred vision, Double vision HEENT: Denies: Head Aches, Sinus Congestion, Sinus Drainage Cardiovascular: Denies: Chest Pain, Palpitations Respiratory: Reports: Shortness of Breath. Denies: Cough, Sputum production Gastrointestinal: Denies: Abdominal Pain, Nausea, Vomiting Genitourinary: Denies: Dysuria Musculoskeletal: Denies: Joint Pain, Joint Tenderness Skin: Denies: Rash, Wounds Neurological: Denies: Numbness, Tingling, Focal weakness Psychiatric: Denies: Anxiety, Depression, Homicidal Ideations, Suicidal Ideations Hematologic/ Lymphatic: Denies: Easy Bruising, Easy Bleeding Patient Problems: Active and Suspected Problems (Last Reviewed 10/11/19 @ 05:[address] Koby uCnha MD) COPD exacerbation (Acute) Objective: The patient's most recent lab work, culture data and imaging studies have all been personally reviewed. Surface echocardiogram from October 2017 revealed a mildly dilated LV with moderate concentric LVH and an ejection fraction of 45%. There was also evidence of moderate pulmonary hypertension. Blood cultures are pending. - Physical Exam Vitals/I&O's: Vital Signs Temp Pulse Resp BP Pulse Ox 98.1 F 88 20 H 158/79 H 95 10/11/19 09:10 10/11/19 09:20 10/11/19 09:10 10/11/19 09:20 10/11/19 09:10 Oxygen Flow Rate (L/min) 4 Oxygen Delivery Method Nasal Cannula Weight: 196 lb 10.437 oz Body Mass Index (BMI) 33.7 Finger Stick Blood Glucose 65 Intake and Output for Last 24 Hours 10/09/19 10/10/19 10/11/19 23:59 23:59 23:59 Intake Total 150 / 150 Balance 150 / 150 General: Alert, Cooperative, No apparent distress, - - Hard of hearing HEENT: Atraumatic, Normocephalic Oral: No Gingival or Mucosal Lesions/ Ulcerations Neck: Supple, No Nodes, Trachea Midline Lungs: Diminished Cardiovascular: Regular rate, Regular Rhythm Abdomen: Bowel Sounds Present, Soft, Non Tender Extremities: No clubbing, No cyanosis, No edema Skin: No breakdown Musculoskeletal: No Muscle Wasting Lymphatic: No Cervical, Supraclavicular, or Inguinal Adenopathy Neurological: - - No focal neurological deficits. Psych/Mental Status: Normal Affect Labs (Last 48 Hours) 10/11/19 10/11/19 10/11/19 00:40 00:40 00:40 WBC 9.7 RBC 3.88 L Hgb 12.2 Hct 38.7 MCV 99.7 H MCH 31.4 MCHC 31.5 L RDW Std Deviation 51.2 H RDW Coeff of Deepali 14.1 Plt Count 168 MPV 11.1 Immature Gran % (Auto) 0.300 Neut % (Auto) 73.9 H Lymph % (Auto) 14.8 L [place] % (Auto) 7.8 Eos % (Auto) 2.9 Baso % (Auto) 0.3 Absolute Neuts (auto) 7.2 Absolute Lymphs (auto) 1.44 Nucleated RBC % 0 Sodium 143 Potassium 5.0 Chloride 111 H Carbon Dioxide 27.0 Anion Gap 5 BUN 26 H Creatinine 1.13 H Estim Creat Clear Calc 29.83 Est GFR (MDRD) Af Amer 59 L Est GFR (MDRD) Non-Af 49 L BUN/Creatinine Ratio 23.0 H Glucose 149 H Calcium 8.8 Troponin I < 0.015 B-Natriuretic Peptide 585.6 H POC Glucose 10/11/19 10/11/19 06:55 08:38 WBC RBC Hgb Hct MCV MCH MCHC RDW Std Deviation RDW Coeff of Deepali Plt Count MPV Immature Gran % (Auto) Neut % (Auto) Lymph % (Auto) [place] % (Auto) Eos % (Auto) Baso % (Auto) Absolute Neuts (auto) Absolute Lymphs (auto) Nucleated RBC % Sodium Potassium Chloride Carbon Dioxide Anion Gap BUN Creatinine Estim Creat Clear Calc Est GFR (MDRD) Af Amer Est GFR (MDRD) Non-Af BUN/Creatinine Ratio Glucose Calcium Troponin I B-Natriuretic Peptide POC Glucose 209 H 295 H Clinical Impression(s) from Imaging Studies Chest X-Ray 10/11/19 00:43 IMPRESSION: Persistent bilateral lower lung airspace disease to a lesser degree of severity than the previous study of October 20, 2017. at 0212 Reported and signed by: Jimenez Pretty MD Electronically Signed: Jimenez Pretty MD at 2:11 EDT Tel , Service support , Current Medications Acetaminophen (Tylenol) 650 mg PO Q6H PRN PRN PRN Reason: Pain Score 1-10/Temp > 100.7 F Albuterol Sulfate (Ventolin Aerosols) 2.5 mg INHALATION Q2H PRN PRN PRN Reason: SOB/Wheezing Albuterol/Ipratropium (Duoneb) 3 ml INHALATION Q4HWA.RT [facility] Last Admin: 10/11/19 06:48 Dose: 3 ml Documented by: Amlodipine Besylate (Norvasc) 10 mg PO DAILY [facility] Last Admin: 10/11/19 09:20 Dose: 10 mg Documented by: Apixaban (Eliquis) 2.5 mg PO BID [facility] Last Admin: 10/11/19 09:19 Dose: 2.5 mg Documented by: Aspirin (Ecotrin) 81 mg PO DAILY@0800 [facility] Last Admin: 10/11/19 09:19 Dose: 81 mg Documented by: Atorvastatin Calcium (Lipitor) 40 mg PO DAILY@2200 [facility] Bisacodyl (Dulcolax) 10 mg RECTAL DAILY PRN PRN PRN Reason: Constipation Calcium/Vitamin D ([place] 500mg + D) 1 tablet PO BIDCM [facility] Last Admin: 10/11/19 09:19 Dose: 1 tablet Documented by: Clonidine HCl (Catapres-Tts1) mg TRANSDERM. QWEEK [facility] Dextrose (D50w Syringe) 0 gm IV X1 PRN; Protocol PRN Reason: Hypoglycemia Docusate Sodium (Colace) 100 mg PO BID [facility] Last Admin: 10/11/19 09:19 Dose: 100 mg Documented by: Furosemide (Lasix) 40 mg IV BID@1000,1800 [facility] Glucagon () 1 mg IM .X1 PRN PRN Reason: Hypoglycemia Levofloxacin (Levaquin Iv) 750 mg in 150 mls @ 100 mls/hr IV Q48@2200 [facility] Last Infusion: 10/11/19 08:40 Dose: Infused Documented by: Sodium Chloride () 250 mls @ 15 mls/hr IV .[id number] PRN PRN Reason: Saline Flush Sodium Chloride () 250 mls @ 15 mls/hr IV .[id number] PRN PRN Reason: Additional IVPB Infusion Insulin Glargine (Lantus (Bkc)) 30 units SC QHS [facility] Insulin Human Lispro (Humalog Kwikpen (Bkc)) 0 unit SC ACHS [facility]; Protocol Last Admin: 10/11/19 08:43 Dose: 1 unit Documented by: Insulin Human Lispro (Humalog Kwikpen (Bkc)) 4 unit SC TIDAC [facility] Last Admin: 10/11/19 08:46 Dose: 4 units Documented by: Isosorbide Mononitrate (Imdur) 60 mg PO DAILY [facility] Last Admin: 10/11/19 09:20 Dose: 60 mg Documented by: Labetalol HCl (Trandate) 10 mg IV Q4H PRN PRN PRN Reason: SBP > 160;or DBP > 120 Magnesium Hydroxide (Milk Of Magnesia) 30 ml PO DAILY PRN PRN PRN Reason: Constipation Melatonin (Melatonin) 3 mg PO QHS PRN PRN PRN Reason: INSOMNIA Methylprednisolone (Solu-Medrol) 40 mg IV Q8 [facility] Last Admin: 10/11/19 06:52 Dose: 40 mg Documented by: Metoprolol Tartrate (Lopressor (Beta Rah)) 25 mg PO BID [facility] Last Admin: 10/11/19 09:20 Dose: 25 mg Documented by: Nystatin (Mycostatin Powder) 1 applic TOPICAL BID [facility]; Protocol Last Admin: 10/11/19 09:19 Dose: 1 applicatio Documented by: Ondansetron HCl (Zofran) 4 mg IV Q8H PRN PRN PRN Reason: NAUSEA/VOMITING Pantoprazole Sodium (Protonix) 40 mg PO DAILY [facility] Last Admin: 10/11/19 09:20 Dose: 40 mg Documented by: Sodium Chloride () 10 - 40 ml IV UD PRN PRN Reason: SALINE FLUSH Last Admin: 10/11/19 06:52 Dose: 20 ml Documented by: Assessment/Plan All Active Problems (Last Reviewed 10/11/19 @ 05:[address] Koby Cunha MD) COPD exacerbation (Acute) NSTEMI (non-ST elevated myocardial infarction) (Resolved 10/20/17) H/O coronary artery bypass surgery (Resolved) LANDRY (acute kidney injury) (Resolved) Acute kidney injury superimposed on chronic kidney disease (Resolved) Acute on chronic respiratory failure with hypoxia and hypercapnia (Resolved) Acute respiratory failure with hypoxia (Resolved) CAP (community acquired pneumonia) (Resolved) COPD exacerbation (Resolved) Chest pain (Resolved) Fall (Resolved) Hyperkalemia (Resolved) Orthopnea (Resolved) RECOMMENDATIONS: 1. Agree with continuing IV diuretics as tolerated by hemodynamics and renal function. 2. Obtain noncontrasted chest CT. 3. Wean supplemental oxygen to maintain saturations at or above 90%. 4. Encourage incentive spirometer use and mobilize patient as tolerated. IMPRESSIONS: 1. Acute on chronic hypoxemic respiratory failure The patient has apparently been on supplemental oxygen since she was diagnosed with coronavirus during the first half of August. I do suspect that the etiology for her shortness of breath on presentation is likely secondary to decompensated heart failure in the setting of hypertensive urgency. However, for further clarification of the patient's pulmonary status, will obtain CT chest. However, given the patient's lack of sputum production or anything to suggest a systemic infection, would hold off on antibiotics for now. Agree with continuing IV diuretic therapy. Repeat echocardiogram is pending. 2. History of ischemic cardiomyopathy/paroxysmal atrial fibrillation/congestive heart failure Continue current medical management. Consider placing cardiology consultation for further management. 3. Obstructive sleep apnea The patient did previously complete a split-night sleep study, for which nocturnal CPAP therapy was recommended. However, the patient has been lost to routine follow-up in the pulmonary medicine clinic. Orders for nocturnal Pap therapy have been placed while the patient is admitted to the hospital. This note was generated with [employer] dictation software. It may contain incorrect words, spelling, and punctuation that were not noted in checking the note before signing. Inpatient E&M: 20254 Init Hosp L3
[2019-10-11] MEDS: Furosemide 40 MG/4 ML Vial IV ×2 (10:03→17:28)
--- NOTE | 2019-10-11 11:09 | CASEMGMT ---
Patient is from [facility]. SW faxed them updates. Physician ordered a COVID test as this is required before patient can return. Nikki LEDESMA MSW
--- NOTE | 2019-10-11 11:13 | CASEMGMT ---
SEDA called [facility] and spoke with Trista. Patient does not need a pre-cert to return as she is long-term. SW faxed updates to [facility]. SW to follow for d/c back to [facility] when ready. Nikki LEDESMA MSW
[2019-10-11] MEDS: cloNIDine HCl 0.1 MG Patch TRANSDERM. (11:34)
[2019-10-11 11:50] LABS: Bedside Glucose 411 mg/dL (70-110)
[2019-10-11 16:21] LABS: Bedside Glucose 325 mg/dL (70-110)
--- NOTE | 2019-10-11 16:33 | PCM.HOSP.N ---
Hospitalist Note She was seen and examined today, I had pulmonary medicine see the patient because I am not convinced that what she currently has is a COPD exacerbation, CT of the chest was ordered which showed evidence of CHF along with some areas of groundglass appearance, pulmonary medicine did not feel the patient needed to be maintained on IV antibiotics. When I examined the patient today, she had absolutely no wheezing, her blood sugars have elevated since she has been placed on Solu-Medrol, I have decided at this point to keep her off Solu-Medrol and treat the patient for suspected congestive heart failure with IV Lasix. Patient's echocardiogram today showed an intermediate ejection fraction of 50%. Patient had mild pulmonary hypertension. I will repeat patient's chest x-ray tomorrow morning, patient is currently on 4 L via nasal cannula. COVID test was ordered on the patient due to the fact that this will have to be resulted before the patient can return to her senior living facility.
[2019-10-11] MEDS: Atorvastatin Calcium 40 MG Tablet PO (21:58)
[2019-10-11 22:36] LABS: Bedside Glucose 317 mg/dL (70-110)
[2019-10-12] VITALS (20 sets, daily range): BP systolic 141–165; BP diastolic 55–75; PULSE 39–80; RESP 12–20; TEMP 36.6–36.9; O2SAT 30–99
[2019-10-12 06:40] LABS: Absolute Lymphocyte Count 0.94 X10^3/uL (0.83-4.51); Absolute Neutrophil Count 11.4 X10^3/uL (2.0-7.7); Basophil# 0.01 X10^3/uL; Basophil% 0.1 % (0-1); Hematocrit 35.8 % (37-47); Hemoglobin 11.2 g/dL (12.0-15.0); Lymphocyte # 0.94 X10^3/ul (4.0); Mean Corp Hgb Conc 31.3 g/dL (32-36); Mean Corpuscular Hgb 31.5 pg (27.0-32.0); Mean Corpuscular Volume 100.8 fL (81-99); Mean Platelet Vol. 11.4 fl (6.2-12.0); Monocyte% 7.4 % (0-10); NRBC Flagged by Analyzer 0 % (0-5); Neutrophil # 11.43 X10^3/uL (2.7-7.7); Neutrophil % 85.1 % (47-70); Platelet Count 178 K/mm3 (150-450); RBC Distribution Width CV 14.5 % (11.6-14.6); RBC Distribution Width SD 52.2 fl (35.1-43.9); Red Blood Count 3.55 M/mm3 (4.2-5.4); White Blood Count 13.4 K/mm3 (4.4-11.0)
[2019-10-12] MEDS: Ipratropium/Albuterol Sulfate 3 ML AMPUL.NEB INHALATION ×4 (06:48→18:43)
[2019-10-12 07:20] LABS: Anion Gap 6 (5-15); BUN 35 mg/dL (7-18); BUN/Creat Ratio 25.2 RATIO (10-20); Calcium,Total 8.7 mg/dL (8.5-10.1); Chloride 111 mmol/L (98-107); Creatinine, Serum 1.39 mg/dL (0.55-1.02); EST Glomerular Filtration Rate 38 mL/min (>60); Est Glom Filt Rate - Afr Amer 47 mL/min (>60); Estimated Creatinine Clearance 26.48 ml/min; Glucose 215 mg/dL (74-106); Potassium 5.7 mmol/L (3.5-5.1); Sodium Level 142 mmol/L (136-145)
--- NOTE | 2019-10-12 07:39 | CPS ---
pt offered to be placed back on Bipap post aerosol rx. pt refused and remains on nasal cannula at 3 lpm....98%
[2019-10-12] MEDS: Aspirin E.C. 81 MG Tablet PO (07:53)
[2019-10-12] MEDS: Insulin Lispro 100 UNIT/ML INSULN.PEN SC ×6 (07:53→21:17)
[2019-10-12] MEDS: Calcium Carb/Vitamin D 1 TABLET Tablet PO ×2 (07:53→16:05)
[2019-10-12 08:15] LABS: Bedside Glucose 176 mg/dL (70-110)
--- NOTE | 2019-10-12 09:03 | RAD_ITS ---
STUDY: X-RAY CHEST REASON FOR EXAM: Female, 84 years old. SHORTNESS OF BREATH, HX PULMONARY HTN TECHNIQUE: Single frontal view of the chest. COMPARISON: 10/11/2019 FINDINGS: Median sternotomy wires and CABG clips. Improving alveolar disease on the right. Stable alveolar disease on the left. There is no demonstrated pleural abnormality. Stable cardiomediastinal silhouette. Normal mediastinum and damian. Normal visualized pulmonary arteries. Normal visualized aortic arch and descending thoracic aorta. Normal visualized thoracic spine. Normal visualized ribs, clavicles, and shoulders. There is no demonstrated abnormality of the visualized soft tissue structures of the upper abdomen. RAD/Chest 1 View (Portable) IMPRESSION: Improving alveolar disease on the right. Stable alveolar disease on the left. Electronically Signed: Noah Pickens MD at 14:27 EDT Tel , Service support ,
[2019-10-12] MEDS: APIXABAN 2.5 MG TABLET PO ×2 (09:19→21:17)
[2019-10-12] MEDS: amLODIPine 10 MG Tablet PO (09:19)
[2019-10-12] MEDS: Docusate Sodium 100 MG Capsule PO ×2 (09:19→21:17)
[2019-10-12] MEDS: Pantoprazole Sodium 40 MG Tablet PO (09:19)
[2019-10-12] MEDS: Isosorbide Mononitrate 60 MG Tablet PO (09:19)
[2019-10-12] MEDS: Metoprolol Tartrate 25 MG Tablet PO ×2 (09:19→21:19)
[2019-10-12] MEDS: Nystatin Powder 15gm Bottle 1 APPLIC TOPICAL ×2 (09:20→21:19)
--- NOTE | 2019-10-12 11:23 | PCM.PN.PUL ---
Patient Problems: Active and Suspected Problems (Last Reviewed 10/11/19 @ 05:[address] Koby Cunha MD) COPD exacerbation (Acute) Subjective: The patient was seen and examined at the bedside this morning. Events from the last 24 hours have been reviewed. The patient is currently afebrile, hemodynamically stable and maintaining appropriate oxygen saturations on 3 L/min. Some improvement in breathing quality has been noted. However, the patient is currently receiving an aerosol treatment. She remains on twice daily scheduled IV Lasix. Objective: The patient's most recent lab work, culture data and imaging studies have all been personally reviewed. Noncontrasted chest CT revealed evidence of bilateral pleural effusions along with scattered groundglass changes. Surface echocardiogram revealed moderate concentric LVH with an ejection fraction of 50% and stage II diastolic dysfunction. - Physical Exam Vitals/I&O's: Vital Signs Temp Pulse Resp BP Pulse Ox 98.3 F 63 18 165/74 H 97 10/12/19 09:10 10/12/19 10:40 10/12/19 10:40 10/12/19 09:19 10/12/19 09:10 Oxygen Flow Rate (L/min) 3 Oxygen Delivery Method Nasal Cannula Weight: 201 lb 11.567 oz Body Mass Index (BMI) 33.7 Finger Stick Blood Glucose 65 Intake and Output for Last 24 Hours 10/10/19 10/11/19 10/12/19 23:59 23:59 23:59 Intake Total 740 / 740 0 / 0 Output Total 700 / 700 250 / 250 Balance 40 / 40 -250 / -250 General: Alert, Cooperative, No apparent distress, - - Sitting in bedside recliner. HEENT: Atraumatic, PERRLA, Normocephalic Oral: No Gingival or Mucosal Lesions/ Ulcerations Neck: Supple, No Nodes, Trachea Midline Lungs: Diminished, - - Currently receiving aerosol treatment Cardiovascular: Regular rate, Regular Rhythm Abdomen: Bowel Sounds Present, Soft Extremities: No clubbing, No cyanosis, No edema Skin: No breakdown Musculoskeletal: No Tenderness to Palpation of Joints or Extremities Lymphatic: No Cervical, Supraclavicular, or Inguinal Adenopathy Neurological: Neuro grossly intact Psych/Mental Status: Normal Affect, Appropriate Labs (Last 48 Hours) 10/11/19 10/11/19 10/11/19 00:40 00:40 00:40 WBC 9.7 RBC 3.88 L Hgb 12.2 Hct 38.7 MCV 99.7 H MCH 31.4 MCHC 31.5 L RDW Std Deviation 51.2 H RDW Coeff of Deepali 14.1 Plt Count 168 MPV 11.1 Immature Gran % (Auto) 0.300 Neut % (Auto) 73.9 H Lymph % (Auto) 14.8 L Dixie % (Auto) 7.8 Eos % (Auto) 2.9 Baso % (Auto) 0.3 Absolute Neuts (auto) 7.2 Absolute Lymphs (auto) 1.44 Nucleated RBC % 0 Sodium 143 Potassium 5.0 Chloride 111 H Carbon Dioxide 27.0 Anion Gap 5 BUN 26 H Creatinine 1.13 H Estim Creat Clear Calc 29.83 Est GFR (MDRD) Af Amer 59 L Est GFR (MDRD) Non-Af 49 L BUN/Creatinine Ratio 23.0 H Glucose 149 H Calcium 8.8 Troponin I < 0.015 B-Natriuretic Peptide 585.6 H COVID-19 (ELISE) POC Glucose 10/11/19 10/11/19 10/11/19 06:55 08:38 10:37 WBC RBC Hgb Hct MCV MCH MCHC RDW Std Deviation RDW Coeff of Deepali Plt Count MPV Immature Gran % (Auto) Neut % (Auto) Lymph % (Auto) Dixie % (Auto) Eos % (Auto) Baso % (Auto) Absolute Neuts (auto) Absolute Lymphs (auto) Nucleated RBC % Sodium Potassium Chloride Carbon Dioxide Anion Gap BUN Creatinine Estim Creat Clear Calc Est GFR (MDRD) Af Amer Est GFR (MDRD) Non-Af BUN/Creatinine Ratio Glucose Calcium Troponin I B-Natriuretic Peptide COVID-19 (LEISE) Pending POC Glucose 209 H 295 H 10/11/19 10/11/19 10/11/19 10:37 11:31 16:09 WBC RBC Hgb Hct MCV MCH MCHC RDW Std Deviation RDW Coeff of Deepali Plt Count MPV Immature Gran % (Auto) Neut % (Auto) Lymph % (Auto) Dixie % (Auto) Eos % (Auto) Baso % (Auto) Absolute Neuts (auto) Absolute Lymphs (auto) Nucleated RBC % Sodium Potassium Chloride Carbon Dioxide Anion Gap BUN Creatinine Estim Creat Clear Calc Est GFR (MDRD) Af Amer Est GFR (MDRD) Non-Af BUN/Creatinine Ratio Glucose Calcium Troponin I B-Natriuretic Peptide COVID-19 (ELISE) Pending POC Glucose 411 H 325 H 10/11/19 10/12/19 10/12/19 22:02 05:37 05:37 WBC 13.4 H RBC 3.55 L Hgb 11.2 L Hct 35.8 L MCV 100.8 H MCH 31.5 MCHC 31.3 L RDW Std Deviation 52.2 H RDW Coeff of Deepali 14.5 Plt Count 178 MPV 11.4 Immature Gran % (Auto) 0.400 Neut % (Auto) 85.1 H Lymph % (Auto) 7.0 L Dixie % (Auto) 7.4 Eos % (Auto) 0.0 Baso % (Auto) 0.1 Absolute Neuts (auto) 11.4 H Absolute Lymphs (auto) 0.94 Nucleated RBC % 0 Sodium 142 Potassium 5.7 H Chloride 111 H Carbon Dioxide 25.0 Anion Gap 6 BUN 35 H Creatinine 1.39 H Estim Creat Clear Calc 26.48 Est GFR (MDRD) Af Amer 47 L Est GFR (MDRD) Non-Af 38 L BUN/Creatinine Ratio 25.2 H Glucose 215 H Calcium 8.7 Troponin I B-Natriuretic Peptide COVID-19 (ELISE) POC Glucose 317 H 10/12/19 07:47 WBC RBC Hgb Hct MCV MCH MCHC RDW Std Deviation RDW Coeff of Deepali Plt Count MPV Immature Gran % (Auto) Neut % (Auto) Lymph % (Auto) Dixie % (Auto) Eos % (Auto) Baso % (Auto) Absolute Neuts (auto) Absolute Lymphs (auto) Nucleated RBC % Sodium Potassium Chloride Carbon Dioxide Anion Gap BUN Creatinine Estim Creat Clear Calc Est GFR (MDRD) Af Amer Est GFR (MDRD) Non-Af BUN/Creatinine Ratio Glucose Calcium Troponin I B-Natriuretic Peptide COVID-19 (ELISE) POC Glucose 176 H Clinical Impression(s) from Imaging Studies Chest X-Ray 10/11/19 00:43 IMPRESSION: Persistent bilateral lower lung airspace disease to a lesser degree of severity than the previous study of October 20, 2017. at 0212 Reported and signed by: Jimenez Pretty MD Electronically Signed: Jimenez Pretty MD at 2:11 EDT Tel , Service support , Chest CT 10/11/19 09:37 IMPRESSION: Findings suggestive of small bilateral effusions with bilateral groundglass appearance of the lungs with a mild degree of CHF. Follow-up is recommended. Moderate sized cardiomegaly with enlargement of the left ventricle. Electronically Signed: Sergio Leon, at 14:29 EDT , Service support , Current Medications Acetaminophen (Tylenol) 650 mg PO Q6H PRN PRN PRN Reason: Pain Score 1-10/Temp > 100.7 F Albuterol Sulfate (Ventolin Aerosols) 2.5 mg INHALATION Q2H PRN PRN PRN Reason: SOB/Wheezing Albuterol/Ipratropium (Duoneb) 3 ml INHALATION Q4HWA.RT [facility] [place] Last Admin: 10/12/19 10:42 Dose: 3 ml Documented by: Amlodipine Besylate (Norvasc) 10 mg PO DAILY [facility] [place] Last Admin: 10/12/19 09:19 Dose: 10 mg Documented by: Apixaban (Eliquis) 2.5 mg PO BID [facility] [place] Last Admin: 10/12/19 09:19 Dose: 2.5 mg Documented by: Aspirin (Ecotrin) 81 mg PO DAILY@0800 [facility] [place] Last Admin: 10/12/19 07:53 Dose: 81 mg Documented by: Atorvastatin Calcium (Lipitor) 40 mg PO DAILY@2200 [facility] [place] Last Admin: 10/11/19 21:58 Dose: 40 mg Documented by: Bisacodyl (Dulcolax) 10 mg RECTAL DAILY PRN PRN PRN Reason: Constipation Calcium/Vitamin D (Os-West 500mg + D) 1 tablet PO BIDCM [facility] [place] Last Admin: 10/12/19 07:53 Dose: 1 tablet Documented by: Clonidine HCl (Catapres-Tts1) 0.1 mg TRANSDERM. QWEEK [facility] [place] Last Admin: 10/11/19 11:34 Dose: 0.1 mg Documented by: Dextrose (D50w Syringe) 0 gm IV X1 PRN; Protocol PRN Reason: Hypoglycemia Docusate Sodium (Colace) 100 mg PO BID [facility] [place] Last Admin: 10/12/19 09:19 Dose: 100 mg Documented by: Furosemide (Lasix) 40 mg IV BID@1000,1800 [facility] [place] Last Admin: 10/11/19 17:28 Dose: 40 mg Documented by: Glucagon () 1 mg IM .X1 PRN PRN Reason: Hypoglycemia Sodium Chloride () 250 mls @ 15 mls/hr IV .[id number] PRN PRN Reason: Saline Flush Sodium Chloride () 250 mls @ 15 mls/hr IV .[id number] PRN PRN Reason: Additional IVPB Infusion Insulin Glargine (Lantus (Bkc)) 30 units SC QHS [facility] [place] Last Admin: 10/11/19 21:59 Dose: 30 units Documented by: Insulin Human Lispro (Humalog Kwikpen (Bkc)) 0 unit SC ACHS [facility] [place]; Protocol Last Admin: 10/12/19 07:53 Dose: 3 unit Documented by: Insulin Human Lispro (Humalog Kwikpen (Bkc)) 4 unit SC TIDAC [facility] [place] Last Admin: 10/12/19 07:53 Dose: 4 units Documented by: Isosorbide Mononitrate (Imdur) 60 mg PO DAILY [facility] [place] Last Admin: 10/12/19 09:19 Dose: 60 mg Documented by: Labetalol HCl (Trandate) 10 mg IV Q4H PRN PRN PRN Reason: SBP > 160;or DBP > 120 Magnesium Hydroxide (Milk Of Magnesia) 30 ml PO DAILY PRN PRN PRN Reason: Constipation Melatonin (Melatonin) 3 mg PO QHS PRN PRN PRN Reason: INSOMNIA Metoprolol Tartrate (Lopressor (Beta Rah)) 25 mg PO BID [facility] [place] Last Admin: 10/12/19 09:19 Dose: 25 mg Documented by: Nystatin (Mycostatin Powder) 1 applic TOPICAL BID [facility] [place]; Protocol Last Admin: 10/12/19 09:20 Dose: 1 applicatio Documented by: Ondansetron HCl (Zofran) 4 mg IV Q8H PRN PRN PRN Reason: NAUSEA/VOMITING Pantoprazole Sodium (Protonix) 40 mg PO DAILY [facility] [place] Last Admin: 10/12/19 09:19 Dose: 40 mg Documented by: Sodium Chloride () 10 - 40 ml IV UD PRN PRN Reason: SALINE FLUSH Last Admin: 10/11/19 22:12 Dose: 10 ml Documented by: Medical Necessity - Tobacco Use Smoking Status: Never smoker Assessment/Plan All Active Problems (Last Reviewed 10/11/19 @ 05:[address] Koby Cunha MD) COPD exacerbation (Acute) NSTEMI (non-ST elevated myocardial infarction) (Resolved 10/20/17) H/O coronary artery bypass surgery (Resolved) LANDRY (acute kidney injury) (Resolved) Acute kidney injury superimposed on chronic kidney disease (Resolved) Acute on chronic respiratory failure with hypoxia and hypercapnia (Resolved) Acute respiratory failure with hypoxia (Resolved) CAP (community acquired pneumonia) (Resolved) COPD exacerbation (Resolved) Chest pain (Resolved) Fall (Resolved) Hyperkalemia (Resolved) Orthopnea (Resolved) RECOMMENDATIONS: 1. Agree with continuing IV diuretics as tolerated by hemodynamics and renal function. 2. Wean supplemental oxygen to maintain saturations at or above 90%. 3. Encourage incentive spirometer use and mobilize patient as tolerated. IMPRESSIONS: 1. Acute on chronic hypoxemic respiratory failure The patient has apparently been on supplemental oxygen since she was diagnosed with coronavirus during the first half of August. I do suspect that the etiology for her shortness of breath on presentation is likely secondary to decompensated heart failure in the setting of hypertensive urgency. Given the patient's lack of sputum production or anything to suggest a systemic infection, I do not see medication for antimicrobials. Agree with continuing IV diuretic therapy. Wean supplemental oxygen as tolerated to maintain saturations at or above 90%. Encourage incentive spirometer use and mobilize patient as tolerated. 2. History of ischemic cardiomyopathy/paroxysmal atrial fibrillation/congestive heart failure Continue current medical management. Consider placing cardiology consultation for further management. 3. Obstructive sleep apnea The patient did previously complete a split-night sleep study, for which nocturnal CPAP therapy was recommended. However, the patient has been lost to routine follow-up in the pulmonary medicine clinic. Orders for nocturnal Pap therapy have been placed while the patient is admitted to the hospital. This note was generated with [email or web address] dictation software. It may contain incorrect words, spelling, and punctuation that were not noted in checking the note before signing. Inpatient E&M: 31599 Subs Hosp L2
[2019-10-12] MEDS: Furosemide 40 MG/4 ML Vial IV ×2 (11:29→17:51)
[2019-10-12] MEDS: 0.9% Saline Lock 10 ML Syringe IV ×2 (11:30→17:52)
[2019-10-12 11:39] LABS: Anion Gap 8 (5-15); BUN 37 mg/dL (7-18); BUN/Creat Ratio 26.8 RATIO (10-20); Calcium,Total 8.9 mg/dL (8.5-10.1); Chloride 109 mmol/L (98-107); Creatinine, Serum 1.38 mg/dL (0.55-1.02); EST Glomerular Filtration Rate 39 mL/min (>60); Est Glom Filt Rate - Afr Amer 47 mL/min (>60); Estimated Creatinine Clearance 26.67 ml/min; Glucose 175 mg/dL (74-106); Potassium 4.8 mmol/L (3.5-5.1); Sodium Level 143 mmol/L (136-145)
[2019-10-12 11:40] LABS: Bedside Glucose 168 mg/dL (70-110)
[2019-10-12 16:21] LABS: Bedside Glucose 137 mg/dL (70-110)
[2019-10-12] MEDS: Metolazone 2.5 MG Tablet PO (16:41)
--- NOTE | 2019-10-12 17:25 | PCM.PROGNOTE ---
Patient Problems: Active and Suspected Problems (Last Reviewed 10/11/19 @ 05:[address] Koby Cunha MD) COPD exacerbation (Acute) Subjective: Patient was seen and examined today, she states she is breathing better, she remains on nasal cannula O2, chest x-ray was repeated this morning and showed improved infiltrates in the right lung field. Patient remains afebrile, creatinine is 1.39 today, her first potassium was elevated at 5.7, this was repeated and came back normal at 4.8. Patient's white count today was slightly elevated but I suspect this was secondary to IV corticosteroids administered when she was admitted. - Physical Exam Vitals/I&O's: Vital Signs Temp Pulse Resp BP Pulse Ox 98.4 F 72 18 141/55 H 97 10/12/19 15:55 10/12/19 15:55 10/12/19 15:55 10/12/19 15:55 10/12/19 15:55 Oxygen Flow Rate (L/min) 3 Oxygen Delivery Method Nasal Cannula Weight: 91.5 kg Body Mass Index (BMI) 33.7 Finger Stick Blood Glucose 65 Intake and Output for Last 24 Hours 10/10/19 10/11/19 10/12/19 23:59 23:59 23:59 Intake Total 740 / 740 290 / 290 Output Total 700 / 700 450 / 450 Balance 40 / 40 -160 / -160 General: Alert, Oriented x3, Cooperative, No apparent distress, Well developed, Well nourished HEENT: Atraumatic, PERRLA, EOMI, Normocephalic Oral: Moist Mucosa Neck: Supple, Trachea Midline, Thyroid Normal Size and Texture Lungs: Clear to auscultation, Normal air movement, No rhonchi, No wheeze, Rales - Inspiratory rales at the lung bases bilaterally Cardiovascular: Regular rate, Regular Rhythm, Normal S1, Normal S2, No murmurs, PMI Normal, No rub noted, No Gallop Abdomen: Bowel Sounds Present, Soft, Non Tender, Non-Distended, No hernias noted Extremities: No clubbing, No cyanosis, No edema, Capillary Refill Less than 3 Seconds Skin: No rashes, No breakdown Neurological: Cranial nerves II-XII grossly intact, Neuro grossly intact, Sensory exam intact to light touch and pain, Coordination normal Psych/Mental Status: Normal Affect, Appropriate, Alert and oriented to time, place, person, mood and affect Laboratory Results 10/11/19 22:02: POC Glucose 317 H 10/12/19 05:37: WBC 13.4 H, RBC 3.55 L, Hgb 11.2 L, Hct 35.8 L, MCV 100.8 H, MCH 31.5, MCHC 31.3 L, RDW Std Deviation 52.2 H, RDW Coeff of Deepali 14.5, Plt Count 178, MPV 11.4, Immature Gran % (Auto) 0.400, Neut % (Auto) 85.1 H, Lymph % (Auto) 7.0 L, Morris % (Auto) 7.4, Eos % (Auto) 0.0, Baso % (Auto) 0.1, Absolute Neuts (auto) 11.4 H, Absolute Lymphs (auto) 0.94, Nucleated RBC % 0 10/12/19 05:37: Sodium 142, Potassium 5.7 H, Chloride 111 H, Carbon Dioxide 25.0, Anion Gap 6, BUN 35 H, Creatinine 1.39 H, Estim Creat Clear Calc 26.48, Est GFR (MDRD) Af Amer 47 L, Est GFR (MDRD) Non-Af 38 L, BUN/Creatinine Ratio 25.2 H, Glucose 215 H, Calcium 8.7 10/12/19 07:47: POC Glucose 176 H 10/12/19 11:20: Sodium 143, Potassium 4.8, Chloride 109 H, Carbon Dioxide 26.0, Anion Gap 8, BUN 37 H, Creatinine 1.38 H, Estim Creat Clear Calc 26.67, Est GFR (MDRD) Af Amer 47 L, Est GFR (MDRD) Non-Af 39 L, BUN/Creatinine Ratio 26.8 H, Glucose 175 H, Calcium 8.9 10/12/19 11:28: POC Glucose 168 H 10/12/19 15:59: POC Glucose 137 H Current Medications Acetaminophen (Tylenol) 650 mg PO Q6H PRN PRN PRN Reason: Pain Score 1-10/Temp > 100.7 F Albuterol Sulfate (Ventolin Aerosols) 2.5 mg INHALATION Q2H PRN PRN PRN Reason: SOB/Wheezing Albuterol/Ipratropium (Duoneb) 3 ml INHALATION Q4HWA.RT [facility] Last Admin: 10/12/19 13:41 Dose: 3 ml Documented by: Amlodipine Besylate (Norvasc) 10 mg PO DAILY [facility] Last Admin: 10/12/19 09:19 Dose: 10 mg Documented by: Apixaban (Eliquis) 2.5 mg PO BID [facility] Last Admin: 10/12/19 09:19 Dose: 2.5 mg Documented by: Aspirin (Ecotrin) 81 mg PO DAILY@0800 [facility] Last Admin: 10/12/19 07:53 Dose: 81 mg Documented by: Atorvastatin Calcium (Lipitor) 40 mg PO DAILY@2200 [facility] Last Admin: 10/11/19 21:58 Dose: 40 mg Documented by: Bisacodyl (Dulcolax) 10 mg RECTAL DAILY PRN PRN PRN Reason: Constipation Calcium/Vitamin D (Os-West 500mg + D[facility] Admin: 10/12/19 16:05 Dose: 1 tablet Documented by: Clonidine HCl (Catapres-Tts1) 0.1 mg TRANSDERM. QWEEK [facility] Last Admin: 10/11/19 11:34 Dose: 0.1 mg Documented by: Dextrose (D50w Syringe) 0 gm IV X1 PRN; Protocol PRN Reason: Hypoglycemia Docusate Sodium (Colace) 100 mg PO BID [facility] Last Admin: 10/12/19 09:19 Dose: 100 mg Documented by: Furosemide (Lasix) 40 mg IV BID@1000,1800 [facility] Last Admin: 10/12/19 11:29 Dose: 40 mg Documented by: Glucagon () 1 mg IM .X1 PRN PRN Reason: Hypoglycemia Sodium Chloride () 250 mls @ 15 mls/hr IV .[id number] PRN PRN Reason: Saline Flush Sodium Chloride () 250 mls @ 15 mls/hr IV .[id number] PRN PRN Reason: Additional IVPB Infusion Insulin Glargine (Lantus (Bkc)) 30 units SC QHS [facility] Last Admin: 10/11/19 21:59 Dose: 30 units Documented by: Insulin Human Lispro (Humalog Kwikpen (Bkc)) 0 unit SC ACHS [facility]; Protocol Last Admin: 10/12/19 16:05 Dose: Not Given Documented by: Insulin Human Lispro (Humalog Kwikpen (Bkc)) 4 unit SC TIDAC [facility] Last Admin: 10/12/19 16:05 Dose: 4 units Documented by: Isosorbide Mononitrate (Imdur) 60 mg PO DAILY [facility] Last Admin: 10/12/19 09:19 Dose: 60 mg Documented by: Labetalol HCl (Trandate) 10 mg IV Q4H PRN PRN PRN Reason: SBP > 160;or DBP > 120 Magnesium Hydroxide (Milk Of Magnesia) 30 ml PO DAILY PRN PRN PRN Reason: Constipation Melatonin (Melatonin) 3 mg PO QHS PRN PRN PRN Reason: INSOMNIA Metoprolol Tartrate (Lopressor (Beta Rah)) 25 mg PO BID [facility] Last Admin: 10/12/19 09:19 Dose: 25 mg Documented by: Nystatin (Mycostatin Powder) 1 applic TOPICAL BID [facility]; Protocol Last Admin: 10/12/19 09:20 Dose: 1 applicatio Documented by: Ondansetron HCl (Zofran) 4 mg IV Q8H PRN PRN PRN Reason: NAUSEA/VOMITING Pantoprazole Sodium (Protonix) 40 mg PO DAILY [facility] Last Admin: 10/12/19 09:19 Dose: 40 mg Documented by: Sodium Chloride () 10 - 40 ml IV UD PRN PRN Reason: SALINE FLUSH Last Admin: 10/12/19 11:30 Dose: 10 ml Documented by: Medical Necessity - Tobacco Use Smoking Status: Never smoker Assessment/Plan All Active Problems (Last Reviewed 10/11/19 @ 05:[address] Koby Cunha MD) COPD exacerbation (Acute) NSTEMI (non-ST elevated myocardial infarction) (Resolved 10/20/17) H/O coronary artery bypass surgery (Resolved) LANDRY (acute kidney injury) (Resolved) Acute kidney injury superimposed on chronic kidney disease (Resolved) Acute on chronic respiratory failure with hypoxia and hypercapnia (Resolved) Acute respiratory failure with hypoxia (Resolved) CAP (community acquired pneumonia) (Resolved) COPD exacerbation (Resolved) Chest pain (Resolved) Fall (Resolved) Hyperkalemia (Resolved) Orthopnea (Resolved) #1 acute on chronic diastolic congestive heart failure-patient's echocardiogram showed an intermediate ejection fraction at 50%, continue IV Lasix, I gave the patient 1 dose of Zaroxolyn today to augment diuresis. #2 acute on chronic hypoxic respiratory failure-probably secondary to chronic diastolic congestive heart failure-oxygen will be weaned if possible #3 mild pulmonary hypertension #4 coronary artery disease #5 paroxysmal atrial fibrillation #6 obstructive sleep apnea #7 stage III chronic kidney disease-secondary to type 2 diabetes #8 type 2 diabetes-continue to monitor blood sugars and cover with sliding scale insulin Inpatient E&M: 32254 Subs Hosp L2
[2019-10-12] MEDS: Atorvastatin Calcium 40 MG Tablet PO (21:19)
[2019-10-12 22:16] LABS: Bedside Glucose 178 mg/dL (70-110)
[2019-10-13] VITALS (9 sets, daily range): BP systolic 143–185; BP diastolic 73–81; PULSE 60–71; RESP 16–17; TEMP 36.6–36.7; O2SAT 30–99
[2019-10-13 05:59] LABS: Anion Gap 6 (5-15); BUN 47 mg/dL (7-18); BUN/Creat Ratio 32.6 RATIO (10-20); Calcium,Total 9.2 mg/dL (8.5-10.1); Chloride 104 mmol/L (98-107); Creatinine, Serum 1.44 mg/dL (0.55-1.02); EST Glomerular Filtration Rate 37 mL/min (>60); Est Glom Filt Rate - Afr Amer 45 mL/min (>60); Estimated Creatinine Clearance 25.56 ml/min; Glucose 165 mg/dL (74-106); Potassium 4.6 mmol/L (3.5-5.1); Sodium Level 138 mmol/L (136-145)
[2019-10-13] MEDS: Ipratropium/Albuterol Sulfate 3 ML AMPUL.NEB INHALATION (06:57)
[2019-10-13] MEDS: Insulin Lispro 100 UNIT/ML INSULN.PEN SC ×3 (07:54→11:52)
[2019-10-13 08:01] LABS: Bedside Glucose 143 mg/dL (70-110)
[2019-10-13] MEDS: Aspirin E.C. 81 MG Tablet PO (09:31)
[2019-10-13] MEDS: Isosorbide Mononitrate 60 MG Tablet PO (09:31)
[2019-10-13] MEDS: Calcium Carb/Vitamin D 1 TABLET Tablet PO (09:31)
[2019-10-13] MEDS: Metoprolol Tartrate 25 MG Tablet PO (09:31)
[2019-10-13] MEDS: Docusate Sodium 100 MG Capsule PO (09:31)
[2019-10-13] MEDS: Pantoprazole Sodium 40 MG Tablet PO (09:32)
[2019-10-13] MEDS: APIXABAN 2.5 MG TABLET PO (09:32)
[2019-10-13] MEDS: amLODIPine 10 MG Tablet PO (09:32)
[2019-10-13] MEDS: Nystatin Powder 15gm Bottle 1 APPLIC TOPICAL (09:32)
--- NOTE | 2019-10-13 09:50 | RAD_ITS ---
STUDY: X-RAY CHEST REASON FOR EXAM: Female, 84 years old. CHF.INCREASE SOB TECHNIQUE: AP and lateral views of the chest. COMPARISON: Comparison is made with prior examination dated October 12, 2019. FINDINGS: EKG electrodes are seen. Since prior study, there has been improved aeration of both lungs especially the left lung base. Residual mild changes persist as well as mild degree of vascular congestion. There is no demonstrated pleural abnormality. Sternal cerclage wires and vascular clips are present from a prior sternotomy and coronary artery bypass graft procedure (CABG). Moderate cardiomegaly. Normal mediastinum and damian. Normal visualized pulmonary arteries. There is atherosclerotic calcification of the aortic arch with tortuosity. Normal visualized thoracic spine. Normal visualized ribs, clavicles, and shoulders. There is no demonstrated abnormality of the visualized soft tissue structures of the upper abdomen. RAD/Chest PA and Lateral IMPRESSION: Interval improvement in aeration of both lungs with residual changes present. Electronically Signed: Sergio Leon, at 10:25 EDT , Service support ,
[2019-10-13] MEDS: Furosemide 40 MG/4 ML Vial IV (10:30)
--- NOTE | 2019-10-13 11:09 | PCM.EXTCARCO ---
- Diet 10/11/19 11:46 Diet: Cardiac: Calorie-Controlled Food consistency:: Mechanical Soft/Ground Liquid Consistency:: Regular/Thin Dietary Modifications:: Fluid Restricted Diet Is pt able to select menu?: No Diet Comments: 120 ml grape juice BID; 1500 ml fluid restriction; low sodium How many daily calories?: 1800 calorie - Routine Orders/Code Status Suppository Type: Dulcolax 10mg Routine Lab Work: CBC - 1 week, BMP - 3 days Code Status: Full Code - Therapies Physical Therapy: Eval and Treat Occupational Therapy: Eval and Treat - Problem/Diagnosis (1) Acute on chronic diastolic (congestive) heart failure Status: Acute Current Visit: Yes (2) Chronic respiratory failure with hypoxia Status: Chronic Current Visit: Yes (3) ANA (obstructive sleep apnea) Status: Chronic Current Visit: Yes (4) Paroxysmal atrial fibrillation Status: Chronic Current Visit: No (5) Secondary pulmonary arterial hypertension Status: Chronic Current Visit: No - Allergies/Procedures Done in Hospital Allergies/Adverse Reactions: Allergies LEANDER Inhibitors Allergy (Verified 10/11/19 08:19) Unknown Procedures: 2-D Echocardiogram - Type of Care/Length of Stay Estimated LOS: Convalescent Care Less Than 30 days Type of Care Needed: Skilled Rehab Potential: Fair Prognosis: Fair - Additional Orders/Day of Discharge Day of Discharge: 10/13/19 - Dietary and Speech Recommendations Dietitian Recommendations/Changes: Will change diet to 1800 calorie/cardiac; low sodium with 1500 ml fluid restriction & will change texture to mech soft/ground per pt request with continued thin liquids. - Follow Up Care Primary Care Physician: Eliot Loja MD [Primary Care Provider] - Please follow up with your Primary Care Physician in: 1-2 weeks Please Follow Up With: Elana Bowles NP-C When: 2 weeks Please Follow Up With: Ángel Michelle MD When: 3-4 weeks
--- NOTE | 2019-10-13 11:27 | PCM.PN.PUL ---
Patient Problems: Active and Suspected Problems (Last Reviewed 10/11/19 @ 05:[address] Koby Cunha MD) COPD exacerbation (Acute) Acute on chronic diastolic (congestive) heart failure (Acute) Subjective: The patient was seen and examined at the bedside this morning. Events from the last 24 hours have been reviewed. The patient is currently afebrile, hemodynamically stable and maintaining appropriate oxygen saturations on 3 L/min via nasal cannula. The patient remains on twice daily scheduled IV Lasix. Creatinine is stable. The patient is currently documented to be overall net -3.5 L for the hospital admission. Repeat chest x-ray from this morning revealed overall improvement. Objective: The patient's most recent lab work, culture data and imaging studies have all been personally reviewed. Noncontrasted chest CT revealed evidence of bilateral pleural effusions along with scattered groundglass changes. Surface echocardiogram revealed moderate concentric LVH with an ejection fraction of 50% and stage II diastolic dysfunction. - Physical Exam Vitals/I&O's: Vital Signs Temp Pulse Resp BP Pulse Ox 98.0 F 60 16 185/77 H 97 10/13/19 09:29 10/13/19 09:31 10/13/19 09:29 10/13/19 09:29 10/13/19 09:29 Oxygen Flow Rate (L/min) 3 Oxygen Delivery Method Nasal Cannula Weight: 195 lb 12.328 oz Body Mass Index (BMI) 33.7 Finger Stick Blood Glucose 65 Intake and Output for Last 24 Hours 10/11/19 10/12/19 10/13/19 23:59 23:59 23:59 Intake Total 740 / 740 780 / 780 0 / 0 Output Total 700 / 700 2500 / 2500 1300 / 1300 Balance 40 / 40 -1720 / -1720 -1300 / -1300 General: Alert, No apparent distress HEENT: Atraumatic, Normocephalic Oral: No Gingival or Mucosal Lesions/ Ulcerations Neck: Supple, No Nodes, Trachea Midline Lungs: No rhonchi, No wheeze, No rales, Diminished Cardiovascular: Regular rate, Regular Rhythm Abdomen: Bowel Sounds Present, Soft, Non Tender Extremities: No clubbing, No cyanosis, No edema Skin: No breakdown Musculoskeletal: No Tenderness to Palpation of Joints or Extremities Lymphatic: No Cervical, Supraclavicular, or Inguinal Adenopathy Neurological: Cranial nerves II-XII grossly intact, Neuro grossly intact Psych/Mental Status: Normal Affect, Appropriate Labs (Last 48 Hours) 10/11/19 10/11/19 10/11/19 10:37 10:37 11:31 WBC RBC Hgb Hct MCV MCH MCHC RDW Std Deviation RDW Coeff of Deepali Plt Count MPV Immature Gran % (Auto) Neut % (Auto) Lymph % (Auto) [place] % (Auto) Eos % (Auto) Baso % (Auto) Absolute Neuts (auto) Absolute Lymphs (auto) Nucleated RBC % Sodium Potassium Chloride Carbon Dioxide Anion Gap BUN Creatinine Estim Creat Clear Calc Est GFR (MDRD) Af Amer Est GFR (MDRD) Non-Af BUN/Creatinine Ratio Glucose Calcium COVID-19 (ELISE) Not Detected Not Reportable POC Glucose 411 H 10/11/19 10/11/19 10/12/19 16:09 22:02 05:37 WBC 13.4 H RBC 3.55 L Hgb 11.2 L Hct 35.8 L MCV 100.8 H MCH 31.5 MCHC 31.3 L RDW Std Deviation 52.2 H RDW Coeff of Deepali 14.5 Plt Count 178 MPV 11.4 Immature Gran % (Auto) 0.400 Neut % (Auto) 85.1 H Lymph % (Auto) 7.0 L [place] % (Auto) 7.4 Eos % (Auto) 0.0 Baso % (Auto) 0.1 Absolute Neuts (auto) 11.4 H Absolute Lymphs (auto) 0.94 Nucleated RBC % 0 Sodium Potassium Chloride Carbon Dioxide Anion Gap BUN Creatinine Estim Creat Clear Calc Est GFR (MDRD) Af Amer Est GFR (MDRD) Non-Af BUN/Creatinine Ratio Glucose Calcium COVID-19 (ELISE) POC Glucose 325 H 317 H 10/12/19 10/12/19 10/12/19 05:37 07:47 11:20 WBC RBC Hgb Hct MCV MCH MCHC RDW Std Deviation RDW Coeff of Deepali Plt Count MPV Immature Gran % (Auto) Neut % (Auto) Lymph % (Auto) [place] % (Auto) Eos % (Auto) Baso % (Auto) Absolute Neuts (auto) Absolute Lymphs (auto) Nucleated RBC % Sodium 142 143 Potassium 5.7 H 4.8 Chloride 111 H 109 H Carbon Dioxide 25.0 26.0 Anion Gap 6 8 BUN 35 H 37 H Creatinine 1.39 H 1.38 H Estim Creat Clear Calc 26.48 26.67 Est GFR (MDRD) Af Amer 47 L 47 L Est GFR (MDRD) Non-Af 38 L 39 L BUN/Creatinine Ratio 25.2 H 26.8 H Glucose 215 H 175 H Calcium 8.7 8.9 COVID-19 (ELISE) POC Glucose 176 H 10/12/19 10/12/19 10/12/19 11:28 15:59 21:15 WBC RBC Hgb Hct MCV MCH MCHC RDW Std Deviation RDW Coeff of Deepali Plt Count MPV Immature Gran % (Auto) Neut % (Auto) Lymph % (Auto) [place] % (Auto) Eos % (Auto) Baso % (Auto) Absolute Neuts (auto) Absolute Lymphs (auto) Nucleated RBC % Sodium Potassium Chloride Carbon Dioxide Anion Gap BUN Creatinine Estim Creat Clear Calc Est GFR (MDRD) Af Amer Est GFR (MDRD) Non-Af BUN/Creatinine Ratio Glucose Calcium COVID-19 (ELISE) POC Glucose 168 H 137 H 178 H 10/13/19 10/13/19 05:06 07:51 WBC RBC Hgb Hct MCV MCH MCHC RDW Std Deviation RDW Coeff of Deepali Plt Count MPV Immature Gran % (Auto) Neut % (Auto) Lymph % (Auto) [place] % (Auto) Eos % (Auto) Baso % (Auto) Absolute Neuts (auto) Absolute Lymphs (auto) Nucleated RBC % Sodium 138 Potassium 4.6 Chloride 104 Carbon Dioxide 28.0 Anion Gap 6 BUN 47 H Creatinine 1.44 H Estim Creat Clear Calc 25.56 Est GFR (MDRD) Af Amer 45 L Est GFR (MDRD) Non-Af 37 L BUN/Creatinine Ratio 32.6 H Glucose 165 H Calcium 9.2 COVID-19 (ELISE) POC Glucose 143 H Microbiology 10/11/19 00:55 Blood Culture (Wb) - Left Hand Blood Culture - Preliminary No growth in 48 hours. 10/11/19 00:40 Blood Culture (Wb) - Anticubital Left Blood Culture - Preliminary No growth in 48 hours. Clinical Impression(s) from Imaging Studies Chest X-Ray 10/11/19 00:43 IMPRESSION: Persistent bilateral lower lung airspace disease to a lesser degree of severity than the previous study of October 20, 2017. at 0212 Reported and signed by: Jimenez Pretty MD Electronically Signed: Jimenez Pretty MD at 2:11 EDT Tel , Service support , Chest CT 10/11/19 09:37 IMPRESSION: Findings suggestive of small bilateral effusions with bilateral groundglass appearance of the lungs with a mild degree of CHF. Follow-up is recommended. Moderate sized cardiomegaly with enlargement of the left ventricle. Electronically Signed: Sergio Leon, at 14:29 EDT , Service support , Chest X-Ray 10/12/19 09:03 IMPRESSION: Improving alveolar disease on the right. Stable alveolar disease on the left. Electronically Signed: Noah Pickens MD at 14:27 EDT Tel , Service support , Chest X-Ray 10/13/19 09:50 IMPRESSION: Interval improvement in aeration of both lungs with residual changes present. Electronically Signed: Sergio Leon, at 10:25 EDT , Service support , Current Medications Acetaminophen (Tylenol) 650 mg PO Q6H PRN PRN PRN Reason: Pain Score 1-10/Temp > 100.7 F Albuterol Sulfate (Ventolin Aerosols) 2.5 mg INHALATION Q2H PRN PRN PRN Reason: SOB/Wheezing Albuterol/Ipratropium (Duoneb) 3 ml INHALATION Q4HWA.RT KAITLYNN Last Admin: 10/13/19 10:39 Dose: Not Given Documented by: Amlodipine Besylate (Norvasc) 10 mg PO DAILY KAITLYNN Last Admin: 10/13/19 09:32 Dose: 10 mg Documented by: Apixaban (Eliquis) 2.5 mg PO BID [facility] Last Admin: 10/13/19 09:32 Dose: 2.5 mg Documented by: Aspirin (Ecotrin) 81 mg PO DAILY@0800 [facility] Last Admin: 10/13/19 09:31 Dose: 81 mg Documented by: Atorvastatin Calcium (Lipitor) 40 mg PO DAILY@2200 [facility] Last Admin: 10/12/19 21:19 Dose: 40 mg Documented by: Bisacodyl (Dulcolax) 10 mg RECTAL DAILY PRN PRN PRN Reason: Constipation Calcium/Vitamin D (Os-West 500mg + D) 1 tablet PO BIDCM [facility] Last Admin: 10/13/19 09:31 Dose: 1 tablet Documented by: Clonidine HCl (Catapres-Tts1) 0.1 mg TRANSDERM. QWEEK [facility] Last Admin: 10/11/19 11:34 Dose: 0.1 mg Documented by: Dextrose (D50w Syringe) 0 gm IV X1 PRN; Protocol PRN Reason: Hypoglycemia Docusate Sodium (Colace) 100 mg PO BID [facility] Last Admin: 10/13/19 09:31 Dose: 100 mg Documented by: Furosemide (Lasix) 40 mg IV BID@1000,1800 [facility] Last Admin: 10/13/19 10:30 Dose: 40 mg Documented by: Glucagon () 1 mg IM .X1 PRN PRN Reason: Hypoglycemia Sodium Chloride () 250 mls @ 15 mls/hr IV .[id number] PRN PRN Reason: Saline Flush Sodium Chloride () 250 mls @ 15 mls/hr IV .[id number] PRN PRN Reason: Additional IVPB Infusion Insulin Glargine (Lantus (Bkc)) 30 units SC QHS [facility] Last Admin: 10/12/19 21:18 Dose: 30 units Documented by: Insulin Human Lispro (Humalog Kwikpen (Bkc)) 0 unit SC ACHS [facility]; Protocol Last Admin: 10/13/19 07:53 Dose: Not Given Documented by: Insulin Human Lispro (Humalog Kwikpen (Bkc)) 4 unit SC TIDAC [facility] Last Admin: 10/13/19 07:54 Dose: 4 units Documented by: Isosorbide Mononitrate (Imdur) 60 mg PO DAILY [facility] Last Admin: 10/13/19 09:31 Dose: 60 mg Documented by: Labetalol HCl (Trandate) 10 mg IV Q4H PRN PRN PRN Reason: SBP > 160;or DBP > 120 Magnesium Hydroxide (Milk Of Magnesia) 30 ml PO DAILY PRN PRN PRN Reason: Constipation Melatonin (Melatonin) 3 mg PO QHS PRN PRN PRN Reason: INSOMNIA Metoprolol Tartrate (Lopressor (Beta Rah)) 25 mg PO BID [facility] Last Admin: 10/13/19 09:31 Dose: 25 mg Documented by: Nystatin (Mycostatin Powder) 1 applic TOPICAL BID [facility]; Protocol Last Admin: 10/13/19 09:32 Dose: 1 applicatio Documented by: Ondansetron HCl (Zofran) 4 mg IV Q8H PRN PRN PRN Reason: NAUSEA/VOMITING Pantoprazole Sodium (Protonix) 40 mg PO DAILY [facility] Last Admin: 10/13/19 09:32 Dose: 40 mg Documented by: Sodium Chloride () 10 - 40 ml IV UD PRN PRN Reason: SALINE FLUSH Last Admin: 10/12/19 17:52 Dose: 10 ml Documented by: Medical Necessity - Tobacco Use Smoking Status: Never smoker Assessment/Plan All Active Problems (Last Reviewed 10/11/19 @ 05:[address] Koby Cunha MD) COPD exacerbation (Acute) Acute on chronic diastolic (congestive) heart failure (Acute) NSTEMI (non-ST elevated myocardial infarction) (Resolved 10/20/17) H/O coronary artery bypass surgery (Resolved) LANDRY (acute kidney injury) (Resolved) Acute kidney injury superimposed on chronic kidney disease (Resolved) Acute on chronic respiratory failure with hypoxia and hypercapnia (Resolved) Acute respiratory failure with hypoxia (Resolved) CAP (community acquired pneumonia) (Resolved) COPD exacerbation (Resolved) Chest pain (Resolved) Fall (Resolved) Hyperkalemia (Resolved) Orthopnea (Resolved) RECOMMENDATIONS: 1. Agree with continuing diuretics as tolerated by hemodynamics and renal function. 2. Wean supplemental oxygen to maintain saturations at or above 90%. 3. Encourage incentive spirometer use and mobilize patient as tolerated. 4. Perform walking oximetry study prior to consideration for discharge home. 5. Continue nocturnal CPAP therapy as ordered. 6. Outpatient pulmonary follow-up within 2 weeks of discharge is recommended. IMPRESSIONS: 1. Acute on chronic hypoxemic respiratory failure The patient has apparently been on supplemental oxygen since she was diagnosed with coronavirus during the first half of August. I do suspect that the etiology for her shortness of breath on presentation is likely secondary to decompensated heart failure in the setting of hypertensive urgency. Given the patient's lack of sputum production or anything to suggest a systemic infection, I do not see medication for antimicrobials. Agree with continuing diuretic therapy. Wean supplemental oxygen as tolerated to maintain saturations at or above 90%. Encourage incentive spirometer use and mobilize patient as tolerated. 2. History of ischemic cardiomyopathy/paroxysmal atrial fibrillation/congestive heart failure Continue current medical management. Consider placing cardiology consultation for further management. 3. Obstructive sleep apnea The patient did previously complete a split-night sleep study, for which nocturnal CPAP therapy was recommended. However, the patient has been lost to routine follow-up in the pulmonary medicine clinic. Orders for nocturnal Pap therapy have been placed while the patient is admitted to the hospital. This note was generated with [employer] dictation software. It may contain incorrect words, spelling, and punctuation that were not noted in checking the note before signing. Inpatient E&M: 42111 Subs Hosp L2
[2019-10-13 11:55] LABS: Bedside Glucose 202 mg/dL (70-110)
--- NOTE | 2019-10-13 12:03 | NURSING ---
Coughing while eating lunch. Pulse ox 95% on 3l oxygen. Lunch removed, speech therapy consulted.
--- NOTE | 2019-10-13 12:38 | PHA.DC.MR ---
Pharmacy Service has performed discharge medication reconciliation for this patient. The patient's discharge medication list was reviewed for discrepancies and discrepancies were resolved. Home Medications Calcium Carbonate/Vitamin D3 [Calcium 500-Vit D3 600 Tablet] 1 ea PO BID 04/19/17 Omeprazole 40 mg PO DAILY 04/19/17 Apixaban [Eliquis] 2.5 mg PO BID tab 10/27/17 Aspirin E.C. [Ecotrin] 81 mg PO DAILY@0800 tab 10/27/17 Magnesium Hydroxide [Milk Of Magnesia] 30 ml PO DAILY PRN PRN udc 10/27/17 Metoprolol Tartrate [Lopressor (beta joan)] 25 mg PO BID tab 10/27/17 nystatin 100,000 unit/gram topical powder 1 applic TOPICAL BID 02/24/18 amlodipine 10 mg tablet 10 mg PO DAILY 09/08/18 atorvastatin 40 mg tablet 40 mg PO QHS 02/25/19 bisacodyl 10 mg rectal suppository 10 mg RC DAILY PRN PRN 02/25/19 clonidine 0.1 mg/24 hr weekly transdermal patch 1 patch TRANSDERMAL QWEEK 02/25/19 isosorbide mononitrate 60 mg tablet,extended release 24 hr 60 mg PO DAILY 10/05/19 Acetaminophen [Tylenol Tablet] 650 mg PO Q4H PRN PRN 10/11/19 Docusate Sodium [Colace] 100 mg PO BID 10/11/19 Guaifenesin [Robitussin] 10 ml PO Q4H PRN PRN 10/11/19 Ipratropium Soquel [Atrovent Hfa] 2 puff IH Q4H PRN PRN 10/11/19 Albuterol Aerosols [Ventolin Aerosols] 2.5 mg INHALATION Q2H PRN PRN vial.neb. 10/13/19 Furosemide 40 mg PO BID #0 tab 10/13/19 Insulin Glargine [Lantus SoloStar Pen] 30 units SUBCUT QHS pen 10/13/19 Insulin Lispro [Humalog KwikPen] 4 unit SUBCUT TIDAC insuln.pen 10/13/19
--- NOTE | 2019-10-13 13:13 | CASEMGMT ---
Patient is ready for discharge back to [facility]. SEDA faxed orders. SEDA called [facility] and arranged for patient to get picked up at 2p via cot. SEDA called Trista at [facility] and notified her of pick up and delivery driver time. SEDA notified RN, charge entry specialist, and corporate legal secretary. SW will notify patient and family if she would like. Plan: d/c back to [facility] under intermediate level of care. [facility] transported her via cot. Nikki LEDESMA MSW
--- NOTE | 2019-10-13 13:34 | CASEMGMT ---
RN is notifying patient's family and patient of d/c time. Nikki LEDESMA MSW
--- NOTE | 2019-10-13 14:17 | PCM.DC.SUM ---
Discharge Date and Diagnosis - Problem List Patient Problems: Active and Suspected Problems (Last Reviewed 10/11/19 @ 05:[address] Koby Cunha MD) COPD exacerbation (Acute) Acute on chronic diastolic (congestive) heart failure (Acute) Date of Admission: 10/11/19 Date of Discharge: 10/13/19 - Primary Discharge Diagnosis Acute Problems: Active Problems (Last Reviewed 10/11/19 @ 05:[address] Koby Cunha MD) Acute on chronic diastolic (congestive) heart failure (Acute) Acute on chronic hypoxic resp failure COPD exacerbation ruled out Dysphagia mild pulm htn pAFib ANA CKDIII T2DM - Secondary Discharge Diagnosis Chronic Problems: Chronic Problems (Last Reviewed 10/11/19 @ 05:[address] 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 CT/Chest without Contrast IMPRESSION: Findings suggestive of small bilateral effusions with bilateral groundglass appearance of the lungs with a mild degree of CHF. Follow-up is recommended. Moderate sized cardiomegaly with enlargement of the left ventricle. RAD/Chest 1 View (Portable) IMPRESSION: Improving alveolar disease on the right. Stable alveolar disease on the left. 2D TTE: Interpretation Summary Normal LV size. The estimated ejection fraction is 50 %. Moderate concentric left ventricular hypertrophy. Stage 2 diastolic dysfunction. Contrast injection was performed. Compared to previous study, the left ventricular systolic function has improved.. RAD/Chest PA and Lateral IMPRESSION: Interval improvement in aeration of both lungs with residual changes present. Consults: Randy - Pulmonology Operations: None Procedures: 2-D Echocardiogram Summary of Care Provided: Hospital course: The patient is a 84 year old F with pmhx as above who presented to the ER from [facility] with c/o progressively worsening SOB and increased LE edema. She had covid 19 approx 4 weeks prior. She had been on 2-4 lpm o2 via NC since having covid. She had a cxr c/w chronic disease, elevated BNP, orthopnea, PND, and wheezing on exam. Initially she was felt to have COPD exacerbation and given steroidsm levaqauin and aerosols. Pulmonology was consulted and the patient was felt to be having CHF exacerbation rather than COPD. She was placed on IV diuretics and had good response. She also had ANA but had failed to complete a sleep study so had not been using CPAP. She was placed on CPAP at night here with good response. A CT chest was obtained which was c/w CHF. An echo was obtained showing improved EF 50% st 2 diastolic dysfunction and improved LV systolic function. The patient was transitioned to PO lasix. Steroids and abx were discontinued. She continued to improve. Prior to dc she had difficulty swallowing lunch and choked without an acute change in her respiratory status. We obtained a speech therapy consult which did indeed show some swallowing difficulties and will need a modified diet as per speech therapy, ongoing speech therapy at the SNF, and will need an outpatient swallow study. She was discharged back to the SNF in stable condition. She may continue CPAP as ordered here at the SNF. 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 This patient was seen by Flaco Minor PA-C under the supervision of Doctor Rawls. [] Patient Problems: Active and Suspected Problems (Last Reviewed 10/11/19 @ 05:[address] Koby Cunha MD) COPD exacerbation (Acute) Acute on chronic diastolic (congestive) heart failure (Acute) - Physical Exam Vitals/I&O's: Vital Signs Temp Pulse Resp BP Pulse Ox 98.0 F 69 16 143/73 H 97 10/13/19 09:29 10/13/19 13:43 10/13/19 09:29 10/13/19 13:43 10/13/19 09:29 Oxygen Flow Rate (L/min) 3 Oxygen Delivery Method Nasal Cannula Weight: 195 lb 12.328 oz Body Mass Index (BMI) 33.7 Finger Stick Blood Glucose 65 Intake and Output for Last 24 Hours 10/11/19 10/12/19 10/13/19 23:59 23:59 23:59 Intake Total 740 / 740 780 / 780 0 / 0 Output Total 700 / 700 2500 / 2500 1900 / 1900 Balance 40 / 40 -1720 / -1720 -1900 / -1900 General: Alert, Oriented x3, Cooperative HEENT: Atraumatic, PERRLA, EOMI, Normocephalic Neck: Supple, No JVD, Negative Carotid Bruits Lungs: Clear to auscultation, Normal air movement Cardiovascular: Regular rate, No murmurs Abdomen: Bowel Sounds Present, Soft, Non Tender Extremities: No edema, Capillary Refill Less than 3 Seconds Skin: No rashes, No breakdown Musculoskeletal: No Tenderness to Palpation of Joints or Extremities Neurological: Cranial nerves II-XII grossly intact Psych/Mental Status: Normal Affect, Appropriate, Alert and oriented to time, place, person, mood and affect Microbiology Past 72 Hours 10/11/19 00:55 Blood Culture (Wb) - Left Hand Blood Culture - Preliminary No growth in 48 hours. 10/11/19 00:40 Blood Culture (Wb) - Anticubital Left Blood Culture - Preliminary No growth in 48 hours. Laboratory Results 10/11/19 10:37: COVID-19 (ELISE) Not Detected 10/11/19 10:37: COVID-19 (ELISE) Not Reportable 10/12/19 15:59: POC Glucose 137 H 10/12/19 21:15: POC Glucose 178 H 10/13/19 05:06: Sodium 138, Potassium 4.6, Chloride 104, Carbon Dioxide 28.0, Anion Gap 6, BUN 47 H, Creatinine 1.44 H, Estim Creat Clear Calc 25.56, Est GFR (MDRD) Af Amer 45 L, Est GFR (MDRD) Non-Af 37 L, BUN/Creatinine Ratio 32.6 H, Glucose 165 H, Calcium 9.2 10/13/19 07:51: POC Glucose 143 H 10/13/19 11:51: POC Glucose 202 H Current Medications Acetaminophen (Tylenol) 650 mg PO Q6H PRN PRN PRN Reason: Pain Score 1-10/Temp > 100.7 F Albuterol Sulfate (Ventolin Aerosols) 2.5 mg INHALATION Q2H PRN PRN PRN Reason: SOB/Wheezing Albuterol/Ipratropium (Duoneb) 3 ml INHALATION Q4HWA.RT [facility] Last Admin: 10/13/19 10:39 Dose: Not Given Documented by: Amlodipine Besylate (Norvasc) 10 mg PO DAILY [facility] Last Admin: 10/13/19 09:32 Dose: 10 mg Documented by: Apixaban (Eliquis) 2.5 mg PO BID [facility] Last Admin: 10/13/19 09:32 Dose: 2.5 mg Documented by: Aspirin (Ecotrin) 81 mg PO DAILY@0800 [facility] Last Admin: 10/13/19 09:31 Dose: 81 mg Documented by: Atorvastatin Calcium (Lipitor) 40 mg PO DAILY@2200 [facility] Last Admin: 10/12/19 21:19 Dose: 40 mg Documented by: Bisacodyl (Dulcolax) 10 mg RECTAL DAILY PRN PRN PRN Reason: Constipation Calcium/Vitamin D (Os-West 500mg + D) 1 tablet PO BIDCM [facility] Last Admin: 10/13/19 09:31 Dose: 1 tablet Documented by: Clonidine HCl (Catapres-Tts1) 0.1 mg TRANSDERM. QWEEK [facility] Last Admin: 10/11/19 11:34 Dose: 0.1 mg Documented by: Dextrose (D50w Syringe) 0 gm IV X1 PRN; Protocol PRN Reason: Hypoglycemia Docusate Sodium (Colace) 100 mg PO BID [facility] Last Admin: 10/13/19 09:31 Dose: 100 mg Documented by: Furosemide (Lasix) 40 mg IV BID@1000,1800 [facility] Last Admin: 10/13/19 10:30 Dose: 40 mg Documented by: Glucagon () 1 mg IM .X1 PRN PRN Reason: Hypoglycemia Sodium Chloride () 250 mls @ 15 mls/hr IV .[id number] PRN PRN Reason: Saline Flush Sodium Chloride () 250 mls @ 15 mls/hr IV .[id number] PRN PRN Reason: Additional IVPB Infusion Insulin Glargine (Lantus ([facility])) 30 units SC QHS [facility] Last Admin: 10/12/19 21:18 Dose: 30 units Documented by: Insulin Human Lispro (Humalog Kwikpen ([facility])) 0 unit SC ACHS [facility]; Protocol Last Admin: 10/13/19 11:52 Dose: 3 unit Documented by: Insulin Human Lispro (Humalog [place] ([facility])) 4 unit SC TIDAC [facility] Last Admin: 10/13/19 11:52 Dose: 4 units Documented by: Isosorbide Mononitrate (Imdur) 60 mg PO DAILY [facility] Last Admin: 10/13/19 09:31 Dose: 60 mg Documented by: Labetalol HCl (Trandate) 10 mg IV Q4H PRN PRN PRN Reason: SBP > 160;or DBP > 120 Magnesium Hydroxide (Milk Of Magnesia) 30 ml PO DAILY PRN PRN PRN Reason: Constipation Melatonin (Melatonin) 3 mg PO QHS PRN PRN PRN Reason: INSOMNIA Metoprolol Tartrate (Lopressor (Beta Rah)) 25 mg PO BID [facility] Last Admin: 10/13/19 09:31 Dose: 25 mg Documented by: Nystatin (Mycostatin Powder) 1 applic TOPICAL BID [facility]; Protocol Last Admin: 10/13/19 09:32 Dose: 1 applicatio Documented by: Ondansetron HCl (Zofran) 4 mg IV Q8H PRN PRN PRN Reason: NAUSEA/VOMITING Pantoprazole Sodium (Protonix) 40 mg PO DAILY [facility] Last Admin: 10/13/19 09:32 Dose: 40 mg Documented by: Sodium Chloride () 10 - 40 ml IV UD PRN PRN Reason: SALINE FLUSH Last Admin: 10/12/19 17:52 Dose: 10 ml Documented by: Discharge Diet: Low fat/ Low Cholesterol, 2000 mg Sodium Diet Home Medications: Medications to take at Discharge Calcium Carbonate/Vitamin D3 [Calcium 500-Vit D3 600 Tablet] 1 ea PO BID 04/19/17 Omeprazole 40 mg PO DAILY 04/19/17 Apixaban [Eliquis] 2.5 mg PO BID tab 10/27/17 Aspirin E.C. [Ecotrin] 81 mg PO DAILY@0800 tab 10/27/17 Magnesium Hydroxide [Milk Of Magnesia] 30 ml PO DAILY PRN PRN udc 10/27/17 Metoprolol Tartrate [Lopressor (beta rah)] 25 mg PO BID tab 10/27/17 nystatin 100,000 unit/gram topical powder 1 applic TOPICAL BID 02/24/18 amlodipine 10 mg tablet 10 mg PO DAILY 09/08/18 atorvastatin 40 mg tablet 40 mg PO QHS 02/25/19 bisacodyl 10 mg rectal suppository 10 mg RC DAILY PRN PRN 02/25/19 clonidine 0.1 mg/24 hr weekly transdermal patch 1 patch TRANSDERMAL QWEEK 02/25/19 isosorbide mononitrate 60 mg tablet,extended release 24 hr 60 mg PO DAILY 10/05/19 Acetaminophen [Tylenol Tablet] 650 mg PO Q4H PRN PRN 10/11/19 Docusate Sodium [Colace] 100 mg PO BID 10/11/19 Guaifenesin [Robitussin] 10 ml PO Q4H PRN PRN 10/11/19 Ipratropium [place] [Atrovent Hfa] 2 puff IH Q4H PRN PRN 10/11/19 Albuterol Aerosols [Ventolin Aerosols] 2.5 mg INHALATION Q2H PRN PRN vial.neb. 10/13/19 Furosemide 40 mg PO BID #0 tab 10/13/19 Insulin Glargine [Lantus SoloStar Pen] 30 units SUBCUT QHS pen 10/13/19 Insulin Lispro [Humalog KwikPen] 4 unit SUBCUT TIDAC insuln.pen 10/13/19 Primary Care Physician: Eliot Loja MD [Primary Care Provider] - Please follow up with your Primary Care Physician in: 1-2 weeks Please Follow Up With: Elana Bowles NP-C When: 2 weeks Please Follow Up With: Ángel Michelle MD When: 3-4 weeks Disposition: [facility] facility Minutes spent on discharge:: 35 Patient Condition:: Stable Medical Necessity - Tobacco Use Smoking Status: Never smoker Meaningful Use Info Meaningful Use Diagnoses (Choose all that apply): CHF - CHF LEANDER/ARB ordered at discharge?: No Reason LEANDER/ARB not ordered?: Worsening renal disease Documented LVEF (%): 50
--- NOTE | 2019-10-25 01:24 | ED.RN ---
CHART OPENED TO PRINT LABELS FOR [facility]QU[facility] REPORT
== END 2019-10-13 15:30 | disposition skilled nursing facility (03) | DRG 291 ==
LOC: ED 01:03 → PCU 03:48
PROVIDERS: Admitting Provider Hospitalist; Emergency Provider Emergency Medicine; PCP Internal Medicine; Referring Provider Hospitalist; Visit Provider Internal Medicine
DX: I13.0 Hypertensive heart and chronic kidney disease with heart failure and stage 1 through stage 4 chronic kidney disease, or unspecified chronic kidney disease (principal); I50.43 Acute on chronic combined systolic (congestive) and diastolic (congestive) heart failure; J96.21 Acute and chronic respiratory failure with hypoxia; I25.810 Atherosclerosis of coronary artery bypass graft(s) without angina pectoris; J44.9 Chronic obstructive pulmonary disease, unspecified; I48.0 Paroxysmal atrial fibrillation; Z79.01 Long term (current) use of anticoagulants; I25.5 Ischemic cardiomyopathy; I25.10 Atherosclerotic heart disease of native coronary artery without angina pectoris; Z95.1 Presence of aortocoronary bypass graft; N18.3 Chronic kidney disease, stage 3 (moderate); E78.00 Pure hypercholesterolemia, unspecified; E11.22 Type 2 diabetes mellitus with diabetic chronic kidney disease; I25.2 Old myocardial infarction; Z86.19 Personal history of other infectious and parasitic diseases; Z99.81 Dependence on supplemental oxygen; Z79.82 Long term (current) use of aspirin; Z79.899 Other long term (current) drug therapy; Z79.4 Long term (current) use of insulin; Z68.37 Body mass index [BMI] 37.0-37.9, adult; R13.10 Dysphagia, unspecified; E66.9 Obesity, unspecified; I16.0 Hypertensive urgency; I27.21 Secondary pulmonary arterial hypertension; G47.33 Obstructive sleep apnea (adult) (pediatric)
CPT/HCPCS: 36415; 71045; 71046; 71250; 80048; 82962; 83880; 84484; 85025; 87040; 87635; 92610; 93005; 93306; 94003; 94640; 94660; 94667; 94668; 97116; 97162; 97166; 97530; 97535; 97802; 99285; G2023; Q9957; A4216; C8929; J1940; U0003

== ENCOUNTER → 2019-12-01 23:32 | Outpatient (CLI) | payer MEDICARE, MEDICAID, SELFPAY ==
[2019-10-28 08:35] VITALS: BMI 33.7
== END ==
PROVIDERS: PCP Internal Medicine; Referring Provider Nurse Practitioner Acute Care; Visit Provider Nurse Practitioner Acute Care
DX: G47.33 Obstructive sleep apnea (adult) (pediatric) (principal)
CPT/HCPCS: 95811

== ENCOUNTER 2020-10-12 05:47 | Inpatient (IN) | payer MEDICARE, MEDICAID, SELFPAY ==
[2019-12-13 13:43] VITALS: BMI 33.7
[2020-10-12] VITALS (20 sets, daily range): BP systolic 160–205; BP diastolic 56–94; PULSE 57–77; RESP 18–31; TEMP 36–36.9; O2SAT 50–99; BMI 44.1; BMI 37.5
--- NOTE | 2020-10-12 05:49 | EKG12_ITS ---
Test Reason : SOB Blood Pressure : / mmHG Vent. Rate : 066 BPM Atrial Rate : 066 BPM P-R Int : 000 ms QRS Dur : 128 ms QT Int : 406 ms P-R-T Axes : 000 -12 043 degrees QTc Int : 425 ms Atrial fibrillation Right bundle branch block Abnormal ECG Confirmed by LINDY STOVALL, JENNIFER ([id number]), newspaper managing editor LEVON MCCALL ([id number]) on 10/13/2020 1:09:26 PM Referred By: DC Confirmed By:JENNIFER ISRAEL MD
--- NOTE | 2020-10-12 05:49 | RAD_ITS ---
STUDY: X-RAY CHEST REASON FOR EXAM: Female, 85 years old. Dyspnea TECHNIQUE: Single AP portable view of the chest. COMPARISON: 10/13/2019 chest x-ray cxr FINDINGS: There are interval patchy multifocal opacities within the lungs. There is no demonstrated pleural abnormality. Sternal cerclage wires are present from a prior sternotomy. There are persistent few broken sternotomy wires. Normal mediastinum and damian. Normal visualized pulmonary arteries. Normal visualized aortic arch and descending thoracic aorta. There are diffuse degenerative changes of the visualized thoracic spine. Normal visualized ribs, clavicles, and shoulders. There is no demonstrated abnormality of the visualized soft tissue structures of the upper abdomen. RAD/Chest 1 View (Portable) IMPRESSION: Multifocal patchy opacities consider possible diffuse pneumonia cannot entirely exclude underlying pulmonary nodules. There is status post sternotomy. Electronically Signed: Opal Calderón MD at 6:38 EDT Tel , Service support ,
[2020-10-12] MEDS: Ipratropium/Albuterol Sulfate 3 ML AMPUL.NEB INHALATION (05:57)
[2020-10-12] MEDS: MethylPREDNISolone 125 MG/2 ML Vial IV (05:57)
[2020-10-12 06:13] LABS: Absolute Lymphocyte Count 1.63 X10^3/uL (0.83-4.51); Basophil# 0.02 X10^3/uL; Basophil% 0.2 % (0-1); Eosinophil# 0.12 X10^3/uL; Hemoglobin 10.8 g/dL (12.0-15.0); Lymphocyte # 1.63 X10^3/ul (0.83-4.51); Mean Corp Hgb Conc 30.9 g/dL (32-36); Mean Corpuscular Hgb 31.1 pg (27.0-32.0); Mean Corpuscular Volume 100.9 fL (81-99); Mean Platelet Vol. 10.6 fl (6.2-12.0); Monocyte# 0.84 X10^3/uL; Monocyte% 7.2 % (0-10); NRBC Flagged by Analyzer 0.2 % (0-5); Neutrophil # 8.98 X10^3/uL (2.7-7.7); Neutrophil % 77.1 % (47-70); Platelet Count 208 K/mm3 (150-450); RBC Distribution Width CV 14.3 % (11.6-14.6); RBC Distribution Width SD 51.6 fl (35.1-43.9); Red Blood Count 3.47 M/mm3 (4.2-5.4); White Blood Count 11.7 K/mm3 (4.4-11.0)
[2020-10-12 06:35] LABS: Anion Gap 4 (5-15); BUN 25 mg/dL (7-18); Calcium,Total 9.2 mg/dL (8.5-10.1); Chloride 105 mmol/L (98-107); Creatinine, Serum 1.56 mg/dL (0.55-1.02); EST Glomerular Filtration Rate 34 mL/min (>60); Est Glom Filt Rate - Afr Amer 41 mL/min (>60); Estimated Creatinine Clearance 19.28 ml/min; Glucose 178 mg/dL (74-106); Potassium 4.3 mmol/L (3.5-5.1); Sodium Level 141 mmol/L (136-145); Troponin-I HS 51.2 pg/mL (3.0-53.7)
--- NOTE | 2020-10-12 06:48 | EDS_ITS ---
HPI History of Present Illness Chief Complaint: Shortness of Breath Informant: patient and SNF Onset/Context/Timing Onset: Yesterday Context: Gradual Onset Timing: Continuous Current Severity: Moderate Maximum Severity: Severe Associated Symptoms Associated Symptoms: Cough, edema Narrative Narrative: Patient has a history of COPD, CHF, atrial fibrillation, coronary disease/ACS, obstructive sleep apnea. She presents from [facility] [place] for increasing shortness of breath. She is normally on 3 L. EMS started her on a nonrebreather because she appeared to be in distress. She had not received any breathing treatments or other treatments for her symptoms. She denies any other associated symptoms like chest pain or fever. She has a chronic cough and sputum, and both of these are unchanged. Denies any history of DVT or PE. She had Covid last year. She is on aspirin and apixaban. Prior similar symptoms: [facility] Medical History (Updated 10/12/20 @ 06:[address] Melquiades Fitzpatrick MD) Acute on chronic combined systolic and diastolic heart failure Anemia Atherosclerosis of coronary artery bypass graft without angina pectoris Atherosclerosis of coronary artery of [place] heart without angina pectoris Chronic hypoxemic respiratory failure Chronic renal failure, stage 3 (moderate) Colon polyp Gastric ulcer Ischemic cardiomyopathy Non-rheumatic tricuspid valve insufficiency Nonrheumatic mitral (valve) insufficiency NSTEMI (non-ST elevated myocardial infarction) (10/20/17) Obesity Old anterior wall myocardial infarction ANA (obstructive sleep apnea) Paroxysmal atrial fibrillation Secondary pulmonary arterial hypertension Type 2 diabetes mellitus Home Medications calcium carbonate-vitamin D3 1 ea PO BID 04/19/17 [History Last Taken 09/22/17 12:00] omeprazole 40 mg PO DAILY 04/19/17 [History Last Taken 09/22/17 06:30] apixaban 2.5 mg PO BID tab 10/27/17 [Rx Last Taken Unknown] aspirin 81 mg PO DAILY@0800 tab 10/27/17 [Rx Last Taken Unknown] magnesium hydroxide 30 ml PO DAILY PRN PRN udc 10/27/17 [Rx Last Taken Unknown] metoprolol tartrate 25 mg PO BID tab 10/27/17 [Rx Last Taken Unknown] nystatin 100,000 unit/gram topical powder 1 applic TOPICAL BID 02/24/18 [History Last Taken Unknown] amlodipine 10 mg tablet 10 mg PO DAILY 09/08/18 [History Last Taken Unknown] atorvastatin 40 mg tablet 40 mg PO QHS 02/25/19 [History Last Taken Unknown] bisacodyl 10 mg rectal suppository 10 mg RC DAILY PRN PRN 02/25/19 [History Last Taken Unknown] clonidine 0.1 mg/24 hr weekly transdermal patch 1 patch TRANSDERMAL QWEEK 02/25/19 [History Last Taken Unknown] isosorbide mononitrate 60 mg tablet,extended release 24 hr 60 mg PO DAILY 10/05/19 [History Last Taken Unknown] acetaminophen 650 mg PO Q4H PRN PRN 10/11/19 [History Last Taken Unknown] docusate sodium 100 mg PO BID 10/11/19 [History Last Taken Unknown] guaifenesin 10 ml PO Q4H PRN PRN 10/11/19 [History Last Taken Unknown] ipratropium bromide 2 puff IH Q4H PRN PRN 10/11/19 [History Last Taken Unknown] furosemide 40 mg PO BID #0 tab 10/13/19 [Rx Last Taken Unknown] albuterol sulfate 90 mcg/actuation breath activated powder inhaler 2 inh INHALATION Q2H PRN each 08/01/20 [History Last Taken Unknown] dulaglutide 1.5 mg/0.5 mL subcutaneous pen injector 1.5 mg SC QWEEK ml 08/01/20 [History Last Taken Unknown] insulin glargine 100 unit/mL (3 mL) subcutaneous pen 60 unit SUBCUT QHS ml 08/01/20 [History Last Taken Unknown] insulin lispro 100 unit/mL subcutaneous pen See Rx Instructions SUBCUT TIDAC insuln.pen 08/01/20 [History Last Taken Unknown] Allergy/AdvReac Type Severity Reaction Status Date / Time LEANDER Inhibitors Allergy Unknown Verified 08/01/20 11:14 Family History Other No pertinent family history Surgical History H/O coronary artery bypass surgery History of appendectomy History of left heart catheterization (10/24/17) History of tonsillectomy and adenoidectomy Hx of cholecystectomy Social History Smoking Status: Never smoker alcohol intake: never substance use type: does not use ROS ROS ED Constitutional Constitutional ED: Denies chills or fever(s) Eyes Eyes: Denies change in vision ENT ENT ED: Denies ear pain Cardiovascular Cardiovascular: Denies chest pain, palpitations or racing heartbeat Respiratory/Chest Respiratory/Chest: Reports cough and dyspnea; Denies sputum Gastrointestinal Gastrointestinal: Denies abdominal pain, nausea or vomiting Genitourinary Genitourinary ED: Denies dysuria Musculoskeletal Musculoskeletal: Denies myalgias Integumentary Denies rash Neurologic Neurologic: Denies headache(s) Psychiatric Psychiatric: Denies depression Endocrine Endocrinology: Denies polyuria Allergic/Immunologic Allergic/Immunologic ED: Denies urticaria EXAM Physical Exam Const Vital Signs: 10/12/20 05:47 10/12/20 05:50 10/12/20 05:57 Temperature 96.8 F L Temperature Source Temporal Pulse Rate 66 77 75 Respiratory Rate 24 H 24 H 26 H Respiratory Effort Respiratory Pattern Tachypnea Blood Pressure 195/79 H Blood Pressure Mean 117 Pulse Ox 99 Oxygen Delivery Method Non-Rebreather Venturi Mask Oxygen Flow Rate (L/min) Fraction of Inspired Oxygen (FIO2) 50 10/12/20 05:59 10/12/20 06:10 10/12/20 06:38 Temperature 96.8 F L 97.6 F L Temperature Source Temporal Temporal Pulse Rate 77 70 69 Respiratory Rate 24 H 21 H 20 H Respiratory Effort Short of Breath Respiratory Pattern Blood Pressure 195/79 H 201/94 H 192/83 H Blood Pressure Mean 117 129 119 Pulse Ox 99 96 96 Oxygen Delivery Method Venturi Mask Venturi Mask Nasal Cannula Oxygen Flow Rate (L/min) 3.5 Fraction of Inspired Oxygen (FIO2) 50 35 Positive well nourished HEENT Negative for trauma or tenderness Eyes EOMs intact bilaterally Neck supple Resp Resp Narrative: Coarse breath sounds bilaterally Cardio regular rate; Negative for regular rhythm Rate: Negative for bradycardia or tachycardic GI normal to inspection, nondistended, normoactive bowel sounds and non-tender Palpation: soft Extremity General Extremety ED: Yes edema; Negative for tenderness General Extremity: edema Neuro oriented x3 Sensorium / Orientation: alert Psych mental status grossly normal Skin no rashes or lesions noted MDM MDM MDM Narrative Medical decision making narrative: Patient presents from her nursing facility for shortness of breath. She is not having infectious symptoms or chest pain. Her troponin showed atrial fibrillation without any signs of ischemia or infarction. Her troponin was unremarkable. She is on anticoagulation. She did get some relief with breathing treatments and we were able to wean her back down to her baseline oxygen, 3 L. Her x-ray did show bilateral edema versus infiltrates. I do not feel that this is infectious, I suspect this is more likely CHF. She is edematous. Unfortunately the BNP machine is out of service currently. Patient will be treated with additional breathing treatments and Lasix. She will be admitted to PCU. Lab Data Labs: Laboratory Results - last 24 hr 10/12/20 10/12/20 06:05 06:05 WBC 11.7 H RBC 3.47 L Hgb 10.8 L Hct 35.0 L MCV 100.9 H MCH 31.1 MCHC 30.9 L RDW Std Deviation 51.6 H RDW Coeff of Deepali 14.3 Plt Count 208 MPV 10.6 Immature Gran % (Auto) 0.500 Neut % (Auto) 77.1 H Lymph % (Auto) 14.0 L [place] % (Auto) 7.2 Eos % (Auto) 1.0 Baso % (Auto) 0.2 Absolute Neuts (auto) 9.0 H Absolute Lymphs (auto) 1.63 Nucleated RBC % 0.2 Sodium 141 Potassium 4.3 Chloride 105 Carbon Dioxide 32.0 Anion Gap 4 L BUN 25 H Creatinine 1.56 H Estim Creat Clear Calc 19.28 Est GFR (MDRD) Af Amer 41 L Est GFR (MDRD) Non-Af 34 L BUN/Creatinine Ratio 16.0 Glucose 178 H Calcium 9.2 Troponin I High Sens 51.2 Radiography Chest X-Ray - ED: 1 View, Read by ED Physician, Read by Radiologist, Chronic Changes and CHF Diagnostic Testing: Radiology Impression Chest X-Ray 10/12/20 05:49 IMPRESSION: Multifocal patchy opacities consider possible diffuse pneumonia cannot entirely exclude underlying pulmonary nodules. There is status post sternotomy. Electronically Signed: Opal Calderón MD at 6:38 EDT Tel , Service support , EKG Initial EKG: Attestation: I personally reviewed and interpreted this EKG as follows: (Atrial fibrillation at a rate of 66) Discharge Plan Triage Chief Complaint: Shortness of Breath ED Provider: Melquiades Fitzpatrick Dx/Rx/DC Orders Clinical Impression: Acute on chronic combined systolic and diastolic heart failure, COPD exacerbation Prescriptions: No Action nystatin 100,000 unit/gram powder 1 applic TOPICAL BID RF: 0 amlodipine 10 mg tablet 10 mg PO DAILY RF: 0 atorvastatin 40 mg tablet 40 mg PO QHS RF: 0 bisacodyl 10 mg suppository 10 mg RC DAILY PRN PRN (Reason: Constipation) RF: 0 clonidine 0.1 mg/24 hr patch weekly 1 patch transdermal QWEEK RF: 0 isosorbide mononitrate 60 mg tablet extended release 24 hr 60 mg PO DAILY RF: 0 albuterol sulfate 90 mcg/actuation aerosol powdr breath activated 2 inh INHALATION Q2H PRN (Reason: Shortness Of Breath) RF: 0 insulin glargine 100 unit/mL (3 mL) insulin pen 60 unit subcut QHS RF: 0 insulin lispro 100 unit/mL insulin pen See Rx Instructions subcut TIDAC RF: 0 dulaglutide 1.5 mg/0.5 mL pen injector 1.5 mg SC QWEEK RF: 0 omeprazole 40 MG capsule,delayed release(DR/EC) 40 mg PO DAILY RF: 0 calcium carbonate-vitamin D3 1 EACH tablet 1 ea PO BID RF: 0 aspirin 81 MG tablet 81 mg PO DAILY@0800 RF: 0 magnesium hydroxide 30 ML suspension 30 ml PO DAILY PRN PRN (Reason: Constipation) RF: 0 metoprolol tartrate 25 MG tablet 25 mg PO BID RF: 0 apixaban 2.5 MG tablet 2.5 mg PO BID RF: 0 ipratropium bromide 12.9 GM HFA aerosol inhaler 2 puff IH Q4H PRN PRN (Reason: Sob &/Or Wheezing) RF: 0 docusate sodium 100 MG capsule 100 mg PO BID RF: 0 acetaminophen 325 MG tablet 650 mg PO Q4H PRN PRN (Reason: Mild Pain (scale 0-3)/T>100.7) RF: 0 guaifenesin 10 ML liquid 10 ml PO Q4H PRN PRN (Reason: Cough) RF: 0 furosemide 40 mg tablet 40 mg PO BID Qty: 0 RF: 0 Primary Care Provider: Eliot Loja Referrals: Eliot Loja MD [Primary Care Provider] -
[2020-10-12] MEDS: Albuterol 2.5 MG/3 ML VIAL.NEB. INHALATION (07:05)
[2020-10-12] MEDS: Furosemide 40 MG/4 ML Vial IV ×2 (07:05→17:57)
--- NOTE | 2020-10-12 07:21 | NURSING ---
YESENIA CURRIE CHF
--- NOTE | 2020-10-12 07:23 | HP.PCM.HOS_ITS ---
HPI - General General Date of Admission: 10/12/20 HPI Narrative SABRINA GONZALEZ, is a 85 F with an extensive PMH as outlined who presents with a complaint of shortness of breath. She is normally on 3L of oxygen in her SNF, but was noted to be much more short of breath than usual. She admitted to a cough which was not productive, but denied any chest pain, palpitations, dizziness, nausea or vomiting. Review of systems is otherwise negative. Vitals in the ED showed temp of 97.6F, [place] of 69, BP of 192/83, and shew as saturating at 96% on 3.5L of oxygen. Labs showed wbc of 11.7. Hb of 10.8 and platelets of 208. CXR showed bilateral edema vs infiltrates. EKG showed atrial fibrillation, rate controlled. BNP machine is currently out of order. She is being admitted to be managed for acute on chronic combined heart failure. [facility] Medical History (Updated 10/12/20 @ 06:[address] Melquiades Fitzpatrick MD) Acute on chronic combined systolic and diastolic heart failure Anemia Atherosclerosis of coronary artery bypass graft without angina pectoris Atherosclerosis of coronary artery of [place] heart without angina pectoris Chronic hypoxemic respiratory failure Chronic renal failure, stage 3 (moderate) Colon polyp Gastric ulcer Ischemic cardiomyopathy Non-rheumatic tricuspid valve insufficiency Nonrheumatic mitral (valve) insufficiency NSTEMI (non-ST elevated myocardial infarction) (10/20/17) Obesity Old anterior wall myocardial infarction ANA (obstructive sleep apnea) Paroxysmal atrial fibrillation Secondary pulmonary arterial hypertension Type 2 diabetes mellitus Home Medications calcium carbonate-vitamin D3 1 ea PO BID 04/19/17 [History Last Taken 09/22/17 12:00] omeprazole 40 mg PO DAILY 04/19/17 [History Last Taken 09/22/17 06:30] apixaban 2.5 mg PO BID tab 10/27/17 [Rx Last Taken Unknown] aspirin 81 mg PO DAILY@0800 tab 10/27/17 [Rx Last Taken Unknown] magnesium hydroxide 30 ml PO DAILY PRN PRN udc 10/27/17 [Rx Last Taken Unknown] metoprolol tartrate 25 mg PO BID tab 10/27/17 [Rx Last Taken Unknown] nystatin 100,000 unit/gram topical powder 1 applic TOPICAL BID 02/24/18 [History Last Taken Unknown] amlodipine 10 mg tablet 10 mg PO DAILY 09/08/18 [History Last Taken Unknown] atorvastatin 40 mg tablet 40 mg PO QHS 02/25/19 [History Last Taken Unknown] bisacodyl 10 mg rectal suppository 10 mg RC DAILY PRN PRN 02/25/19 [History Last Taken Unknown] clonidine 0.1 mg/24 hr weekly transdermal patch 1 patch TRANSDERMAL QWEEK 02/25/19 [History Last Taken Unknown] isosorbide mononitrate 60 mg tablet,extended release 24 hr 60 mg PO DAILY 10/05/19 [History Last Taken Unknown] acetaminophen 650 mg PO Q4H PRN PRN 10/11/19 [History Last Taken Unknown] docusate sodium 100 mg PO BID 10/11/19 [History Last Taken Unknown] guaifenesin 10 ml PO Q4H PRN PRN 10/11/19 [History Last Taken Unknown] ipratropium bromide 2 puff IH Q4H PRN PRN 10/11/19 [History Last Taken Unknown] furosemide 40 mg PO BID #0 tab 10/13/19 [Rx Last Taken Unknown] albuterol sulfate 90 mcg/actuation breath activated powder inhaler 2 inh INHALATION Q2H PRN each 08/01/20 [History Last Taken Unknown] dulaglutide 1.5 mg/0.5 mL subcutaneous pen injector 1.5 mg SC QWEEK ml 08/01/20 [History Last Taken Unknown] insulin glargine 100 unit/mL (3 mL) subcutaneous pen 60 unit SUBCUT QHS ml 08/01/20 [History Last Taken Unknown] insulin lispro 100 unit/mL subcutaneous pen See Rx Instructions SUBCUT TIDAC insuln.pen 08/01/20 [History Last Taken Unknown] Allergy/AdvReac Type Severity Reaction Status Date / Time LEANDER Inhibitors Allergy Unknown Verified 08/01/20 11:14 Family History Other No pertinent family history Surgical History H/O coronary artery bypass surgery History of appendectomy History of left heart catheterization (10/24/17) History of tonsillectomy and adenoidectomy Hx of cholecystectomy Social History Smoking Status: Never smoker alcohol intake: never substance use type: does not use Vital Signs Vital Signs Vital Signs: 10/12/20 05:47 10/12/20 05:50 10/12/20 05:57 Temperature 96.8 F L Temperature Source Temporal Pulse Rate 66 77 75 Respiratory Rate 24 H 24 H 26 H Respiratory Effort Respiratory Pattern Tachypnea Blood Pressure 195/79 H Blood Pressure Mean 117 Pulse Ox 99 Oxygen Delivery Method Non-Rebreather Venturi Mask Oxygen Flow Rate (L/min) Fraction of Inspired Oxygen (FIO2) 50 10/12/20 05:59 10/12/20 06:10 10/12/20 06:38 Temperature 96.8 F L 97.6 F L Temperature Source Temporal Temporal Pulse Rate 77 70 69 Respiratory Rate 24 H 21 H 20 H Respiratory Effort Short of Breath Respiratory Pattern Blood Pressure 195/79 H 201/94 H 192/83 H Blood Pressure Mean 117 129 119 Pulse Ox 99 96 96 Oxygen Delivery Method Venturi Mask Venturi Mask Nasal Cannula Oxygen Flow Rate (L/min) 3.5 Fraction of Inspired Oxygen (FIO2) 50 35 10/12/20 07:04 Temperature 97.3 F L Temperature Source Temporal Pulse Rate 68 Respiratory Rate 22 H Respiratory Effort Respiratory Pattern Blood Pressure 205/82 H Blood Pressure Mean 123 Pulse Ox 99 Oxygen Delivery Method Nasal Cannula Oxygen Flow Rate (L/min) 3.5 Fraction of Inspired Oxygen (FIO2) Weight Weight: 226 lb 3.108 oz Body Mass Index (BMI) 44.1 Physical Exam Const alert and oriented x3 General Appearance: cooperative HEENT normocephalic, head/scalp atraumatic and hearing grossly normal bilaterally Eyes PERRL, EOMs intact bilaterally and conjunctivae normal Neck no lymphadenopathy, supple and no JVD Resp Resp Narrative: diminished breath sounds bibasally, no wheezes or crackles. on baseline 3L of oxygen Cardio Cardio Narrative: afib, rate controlled GI normal to inspection, nondistended, normoactive bowel sounds, soft to palpation, non-tender and non-distended Extremity normal to inspection, full ROM and no clubbing, cyanosis or edema Peripheral Pulses: Yes pulses 2+ throughout Skin no rashes or lesions noted Neuro oriented x3 Sensorium / Orientation: awake and alert Psych affect normal Results Lab / Micro Data Result Diagrams: 10/12/20 06:05 10/12/20 06:05 Labs: Laboratory Results - last 24 hr 10/12/20 10/12/20 06:05 06:05 WBC 11.7 H RBC 3.47 L Hgb 10.8 L Hct 35.0 L MCV 100.9 H MCH 31.1 MCHC 30.9 L RDW Std Deviation 51.6 H RDW Coeff of Deepali 14.3 Plt Count 208 MPV 10.6 Immature Gran % (Auto) 0.500 Neut % (Auto) 77.1 H Lymph % (Auto) 14.0 L [place] % (Auto) 7.2 Eos % (Auto) 1.0 Baso % (Auto) 0.2 Absolute Neuts (auto) 9.0 H Absolute Lymphs (auto) 1.63 Nucleated RBC % 0.2 Sodium 141 Potassium 4.3 Chloride 105 Carbon Dioxide 32.0 Anion Gap 4 L BUN 25 H Creatinine 1.56 H Estim Creat Clear Calc 19.28 Est GFR (MDRD) Af Amer 41 L Est GFR (MDRD) Non-Af 34 L BUN/Creatinine Ratio 16.0 Glucose 178 H Calcium 9.2 Troponin I High Sens 51.2 Micro: Microbiology 10/12/20 06:05 SARS-CoV-2 Antigen (Rapid) - Final Mucosa - Nose Radiology Impression Chest X-Ray 10/12/20 05:49 IMPRESSION: Multifocal patchy opacities consider possible diffuse pneumonia cannot entirely exclude underlying pulmonary nodules. There is status post sternotomy. Electronically Signed: Opal Calderón MD at 6:38 EDT Tel , Service support , Assessment & Plan Assessment/Plan (1) Acute on chronic diastolic (congestive) heart failure: PLAN: #Acute on chronic HFpEF * admit to PCU * diurese with IV lasix 40mg bid * monitor intake and output chart * fluid restriction to 1500cc daily * * #Chronic hypoxic respiratory failure * patient on 3L of oxygen, and she was on her baseline 3L of oxygen at time of review * titrate oxygen to maintain sats >90% * breathing treatment with bronchodilators * * #CAD s/p CABG * On aspirin, high intensity statin and Imdur as well as metoprolol * #ANA: on CPAP qhs #hypertension; on amlodipine and clonidine as well as metoprolol. #Type 2 diabetes mellitus: On Lantus insulin 60 units nightly and sliding scale. Accu-Cheks AC at bedtime. DVT prophylaxis: On Eliquis CODE STATUS: Full code * Counseled patient about differences between full code, DNR CCA and DNR CCA. Patient tells me that she wants to be full code would want to be intubated and have CPR if needed. * Total ehdl-tq-wfmr time 16 minutes. Charges/Coding Visit Charges Inpatient E&M: 33297 Init Hosp L3 Procedures Hospitalists Procedures: 71158 Advncd Care Plan 30 Min
--- NOTE | 2020-10-12 07:29 | NURSING ---
DR ACOSTA FOR DR JOHNSON
[2020-10-12 07:42] LABS: BNP,B-Type NATRIURETIC PEPTIDE 729.8 pg/mL (0-100)
--- NOTE | 2020-10-12 08:30 | NURSING ---
Called [facility] this AM to request a med req. Informed that patient's nurse will have to call this nurse back. Awaiting phone call to request med rec so can complete our med rec. Pharmacy notified.
[2020-10-12 08:55] LABS: Troponin-I HS 47.6 pg/mL (3.0-53.7)
[2020-10-12] MEDS: Aspirin E.C. 81 MG Tablet PO (09:28)
[2020-10-12] MEDS: Metoprolol Tartrate 25 MG Tablet PO ×2 (09:28→22:04)
[2020-10-12] MEDS: 0.9% Saline Lock 10 ML Syringe IV ×2 (09:28→17:57)
[2020-10-12] MEDS: Docusate Sodium 100 MG Capsule PO ×2 (09:28→22:04)
[2020-10-12] MEDS: amLODIPine 10 MG Tablet PO (09:28)
[2020-10-12] MEDS: Pantoprazole Sodium 40 MG Tablet PO (09:29)
[2020-10-12] MEDS: Isosorbide Mononitrate 60 MG Tablet PO (09:30)
[2020-10-12 11:25] LABS: Bedside Glucose 292 mg/dL (70-110)
[2020-10-12] MEDS: Insulin Lispro 100 UNIT/ML INSULN.PEN SC ×3 (11:39→22:05)
[2020-10-12] MEDS: Insulin Lispro 100 UNIT/ML INSULN.PEN 14 UNIT SC ×2 (11:40→16:41)
[2020-10-12] MEDS: Calcium Carb/Vitamin D 1 TABLET Tablet PO ×2 (12:14→16:41)
[2020-10-12 13:19] LABS: Troponin-I HS 36.8 pg/mL (3.0-53.7)
[2020-10-12] MEDS: APIXABAN 2.5 MG TABLET PO ×2 (13:49→22:04)
[2020-10-12 16:50] LABS: Bedside Glucose 338 mg/dL (70-110)
[2020-10-12] MEDS: Atorvastatin Calcium 40 MG Tablet PO (22:04)
[2020-10-12 22:41] LABS: Bedside Glucose 283 mg/dL (70-110)
[2020-10-13] VITALS (21 sets, daily range): BP systolic 150–192; BP diastolic 53–86; PULSE 62–81; RESP 8–28; TEMP 36.3–36.9; O2SAT 92–98
[2020-10-13 05:57] LABS: Absolute Lymphocyte Count 1.21 X10^3/uL (0.83-4.51); Absolute Neutrophil Count 9.1 X10^3/uL (2.0-7.7); Basophil# 0.02 X10^3/uL; Basophil% 0.2 % (0-1); Eosinophil# 0.01 X10^3/uL; Eosinophils% 0.1 % (0-5); Hematocrit 31.6 % (37-47); Hemoglobin 9.5 g/dL (12.0-15.0); Lymphocyte # 1.21 X10^3/ul (0.83-4.51); Lymphocyte % 10.7 % (19-41); Mean Corp Hgb Conc 30.1 g/dL (32-36); Mean Corpuscular Hgb 30.7 pg (27.0-32.0); Mean Corpuscular Volume 102.3 fL (81-99); Mean Platelet Vol. 11.3 fl (6.2-12.0); Monocyte# 0.92 X10^3/uL; Monocyte% 8.1 % (0-10); NRBC Flagged by Analyzer 0 % (0-5); Neutrophil # 9.07 X10^3/uL (2.7-7.7); Neutrophil % 80.1 % (47-70); Platelet Count 203 K/mm3 (150-450); RBC Distribution Width CV 14.4 % (11.6-14.6); RBC Distribution Width SD 53.3 fl (35.1-43.9); Red Blood Count 3.09 M/mm3 (4.2-5.4); White Blood Count 11.3 K/mm3 (4.4-11.0)
[2020-10-13 06:20] LABS: Anion Gap 5 (5-15); BUN 42 mg/dL (7-18); Chloride 106 mmol/L (98-107); EST Glomerular Filtration Rate 25 mL/min (>60); Est Glom Filt Rate - Afr Amer 31 mL/min (>60); Estimated Creatinine Clearance 18.84 ml/min; Glucose 229 mg/dL (74-106); Sodium Level 141 mmol/L (136-145)
[2020-10-13] MEDS: Ipratropium/Albuterol Sulfate 3 ML AMPUL.NEB INHALATION ×4 (08:11→21:06)
[2020-10-13 09:11] LABS: Bedside Glucose 173 mg/dL (70-110)
--- NOTE | 2020-10-13 09:26 | CASEMGMT ---
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 [facility] faxed updates to [facility]. Green sheet on chart for d/c back to [facility]. Plan: d/c back to [facility] when ready. Nikki LEDESMA
[2020-10-13] MEDS: Insulin Lispro 100 UNIT/ML INSULN.PEN 10 UNIT SC (09:27)
[2020-10-13] MEDS: Insulin Lispro 100 UNIT/ML INSULN.PEN SC ×4 (09:27→21:34)
[2020-10-13] MEDS: Calcium Carb/Vitamin D 1 TABLET Tablet PO ×2 (09:28→18:19)
[2020-10-13] MEDS: Aspirin E.C. 81 MG Tablet PO (09:28)
[2020-10-13] MEDS: Isosorbide Mononitrate 60 MG Tablet PO (09:28)
[2020-10-13] MEDS: 0.9% Saline Lock 10 ML Syringe IV ×3 (09:28→18:20)
[2020-10-13] MEDS: APIXABAN 2.5 MG TABLET PO ×2 (09:28→21:34)
[2020-10-13] MEDS: Furosemide 40 MG/4 ML Vial IV ×2 (09:28→18:19)
[2020-10-13] MEDS: amLODIPine 10 MG Tablet PO (09:28)
[2020-10-13] MEDS: Metoprolol Tartrate 25 MG Tablet PO ×2 (09:28→21:33)
[2020-10-13] MEDS: Pantoprazole Sodium 40 MG Tablet PO (09:28)
[2020-10-13] MEDS: Docusate Sodium 100 MG Capsule PO ×2 (09:28→21:35)
[2020-10-13] MEDS: hydrALAZINE 20 MG/ML Vial 10 MG IV ×2 (10:38→21:33)
[2020-10-13 12:31] LABS: Bedside Glucose 205 mg/dL (70-110)
[2020-10-13] MEDS: Insulin Lispro 100 UNIT/ML INSULN.PEN 14 UNIT SC ×2 (13:29→18:20)
--- NOTE | 2020-10-13 14:32 | PN.HOSP_ITS ---
Subjective Subjective Patient seen and examined. She had an uneventful night and had no complaints this morning. She was audibly wheezing but only kept on asking of her breakfast. She denied any shortness of breath and review of systems otherwise negative. Objective Data Objective Data Vital Signs: Vital Signs Temp Pulse Resp BP Pulse Ox 98.4 F 81 19 H 152/57 H 94 10/13/20 09:26 10/13/20 11:04 10/13/20 11:04 10/13/20 11:16 10/13/20 09:26 Oxygen Flow Rate (L/min) 3 Oxygen Delivery Method Nasal Cannula Weight: 224 lb 3.362 oz Body Mass Index (BMI) 37.5 Intake & Output: Intake and Output for Last 24 Hours 10/11/20 10/12/20 10/13/20 23:59 23:59 23:59 Intake Total 360 / 420 430 / 430 Output Total 500 / 750 900 / 900 Balance -140 / -330 -470 / -470 Lab / Micro Data Result Diagrams: 10/13/20 05:00 10/13/20 05:00 Labs: Laboratory Results - last 24 hr 10/12/20 10/12/20 10/13/20 16:38 22:03 05:00 WBC 11.3 H RBC 3.09 L Hgb 9.5 L Hct 31.6 L MCV 102.3 H MCH 30.7 MCHC 30.1 L RDW Std Deviation 53.3 H RDW Coeff of Deepali 14.4 Plt Count 203 MPV 11.3 Immature Gran % (Auto) 0.800 Neut % (Auto) 80.1 H Lymph % (Auto) 10.7 L [place] % (Auto) 8.1 Eos % (Auto) 0.1 Baso % (Auto) 0.2 Absolute Neuts (auto) 9.1 H Absolute Lymphs (auto) 1.21 Nucleated RBC % 0 Sodium Potassium Chloride Carbon Dioxide Anion Gap BUN Creatinine Estim Creat Clear Calc Est GFR (MDRD) Af Amer Est GFR (MDRD) Non-Af BUN/Creatinine Ratio Glucose Calcium POC Glucose 338 H 283 H 10/13/20 10/13/20 10/13/20 05:00 08:45 12:24 WBC RBC Hgb Hct MCV MCH MCHC RDW Std Deviation RDW Coeff of Deepali Plt Count MPV Immature Gran % (Auto) Neut % (Auto) Lymph % (Auto) [place] % (Auto) Eos % (Auto) Baso % (Auto) Absolute Neuts (auto) Absolute Lymphs (auto) Nucleated RBC % Sodium 141 Potassium 5.0 Chloride 106 Carbon Dioxide 30.0 Anion Gap 5 BUN 42 H Creatinine 2.00 H Estim Creat Clear Calc 18.84 Est GFR (MDRD) Af Amer 31 L Est GFR (MDRD) Non-Af 25 L BUN/Creatinine Ratio 21.0 H Glucose 229 H Calcium 9.0 POC Glucose 173 H 205 H Micro: Microbiology 10/12/20 06:05 Mucosa - Nose SARS-CoV-2 Antigen (Rapid) - Final Physical Exam Const alert, oriented x3 and no apparent distress General Appearance: cooperative Exam Limitations: no limitations HEENT normocephalic, head/scalp atraumatic and hearing grossly normal bilaterally Head and Scalp: normocephalic Eyes PERRL, EOMs intact bilaterally and conjunctivae normal Neck no lymphadenopathy, supple and no JVD Resp Resp Narrative: diminished breath sounds bibasally, no wheezes or crackles. on baseline 3L of oxygen Cardio Cardio Narrative: afib, rate controlled GI normal to inspection, nondistended, normoactive bowel sounds, soft to palpation, non-tender and non-distended Extremity normal to inspection, full ROM and no clubbing, cyanosis or edema Peripheral Pulses: Yes pulses 2+ throughout Skin no rashes or lesions noted Neuro oriented x3 Sensorium / Orientation: awake and alert Psych affect normal Assessment & Plan Assessment/Plan (1) Acute on chronic diastolic (congestive) heart failure: PLAN: #Acute on chronic HFpEF * being diuresed with IV lasix. * in cumulative negative balance by 610mls * monitor intake and output * fluid restriction to 1500cc daily * #Chronic hypoxic respiratory failure * remains on 3L of oxygen, which is her baseline. * titrate oxygen to maintain sats >90% * breathing treatment with bronchodilators * * #CAD s/p CABG * On aspirin, high intensity statin and Imdur as well as metoprolol * #ANA: on CPAP qhs #hypertension; on amlodipine and clonidine as well as metoprolol. #Type 2 diabetes mellitus: On Lantus insulin 60 units nightly and sliding scale. Accu-Cheks AC at bedtime. DVT prophylaxis: On Eliquis CODE STATUS: Full code * Disposition: for likely DC back to her SNF tomorrow Charges/Coding Visit Charges Inpatient E&M: 64941 Subs Hosp L2
[2020-10-13 17:30] LABS: Bedside Glucose 247 mg/dL (70-110)
[2020-10-13] MEDS: Atorvastatin Calcium 40 MG Tablet PO (21:33)
[2020-10-13] MEDS: Acetaminophen 325 MG Tablet 650 MG PO (21:35)
[2020-10-13] MEDS: guaiFENesin 10 ML UDC (200MG/10ML) PO (21:35)
[2020-10-13 23:21] LABS: Bedside Glucose 254 mg/dL (70-110)
[2020-10-14] VITALS (18 sets, daily range): BP systolic 152–187; BP diastolic 53–88; PULSE 52–91; RESP 18–28; TEMP 36.5–36.9; O2SAT 90–97
[2020-10-14] MEDS: Ipratropium/Albuterol Sulfate 3 ML AMPUL.NEB INHALATION ×5 (04:10→22:36)
[2020-10-14] MEDS: guaiFENesin 10 ML UDC (200MG/10ML) PO ×2 (05:35→21:38)
[2020-10-14 06:14] LABS: Absolute Lymphocyte Count 1.29 X10^3/uL (0.83-4.51); Absolute Neutrophil Count 8.5 X10^3/uL (2.0-7.7); Basophil# 0.03 X10^3/uL; Basophil% 0.3 % (0-1); Eosinophil# 0.12 X10^3/uL; Eosinophils% 1.1 % (0-5); Hematocrit 31.5 % (37-47); Hemoglobin 9.5 g/dL (12.0-15.0); Lymphocyte # 1.29 X10^3/ul (0.83-4.51); Mean Corp Hgb Conc 30.2 g/dL (32-36); Mean Corpuscular Hgb 30.9 pg (27.0-32.0); Mean Corpuscular Volume 102.6 fL (81-99); Mean Platelet Vol. 10.9 fl (6.2-12.0); Monocyte% 7.4 % (0-10); NRBC Flagged by Analyzer 0.3 % (0-5); Neutrophil # 8.49 X10^3/uL (2.7-7.7); Neutrophil % 78.6 % (47-70); Platelet Count 219 K/mm3 (150-450); RBC Distribution Width CV 14.7 % (11.6-14.6); RBC Distribution Width SD 54.4 fl (35.1-43.9); Red Blood Count 3.07 M/mm3 (4.2-5.4); White Blood Count 10.8 K/mm3 (4.4-11.0)
[2020-10-14 06:31] LABS: ALB/GLOB Ratio 0.5 RATIO (0.9-2.4); AST(SGOT) 14 U/L (15-37); Alanine Aminotransfer ALT/SGPT 16 U/L (13-56); Albumin, Serum 2.4 g/dL (3.2-5.0); Alkaline Phosphatase 97 U/L (45-117); Anion Gap 7 (5-15); BUN 52 mg/dL (7-18); BUN/Creat Ratio 30.1 RATIO (10-20); Calcium,Total 9.2 mg/dL (8.5-10.1); Chloride 107 mmol/L (98-107); Creatinine, Serum 1.73 mg/dL (0.55-1.02); EST Glomerular Filtration Rate 30 mL/min (>60); Est Glom Filt Rate - Afr Amer 36 mL/min (>60); Estimated Creatinine Clearance 21.78 ml/min; Globulin 4.8 g/dL (2.2-4.2); Glucose 138 mg/dL (74-106); Magnesium 2.1 mg/dL (1.6-2.6); Potassium 4.3 mmol/L (3.5-5.1); Protein, Total 7.2 g/dL (6.4-8.2); Sodium Level 144 mmol/L (136-145)
[2020-10-14 08:45] LABS: Bedside Glucose 161 mg/dL (70-110)
[2020-10-14] MEDS: Insulin Lispro 100 UNIT/ML INSULN.PEN 10 UNIT SC (08:45)
[2020-10-14] MEDS: Insulin Lispro 100 UNIT/ML INSULN.PEN SC ×3 (09:15→20:55)
[2020-10-14] MEDS: Furosemide 40 MG/4 ML Vial IV ×2 (09:15→17:25)
[2020-10-14] MEDS: 0.9% Saline Lock 10 ML Syringe IV ×2 (09:16→17:25)
[2020-10-14] MEDS: Metoprolol Tartrate 25 MG Tablet PO ×2 (09:17→20:55)
[2020-10-14] MEDS: APIXABAN 2.5 MG TABLET PO ×2 (09:18→20:56)
[2020-10-14] MEDS: Aspirin E.C. 81 MG Tablet PO (09:18)
[2020-10-14] MEDS: Isosorbide Mononitrate 60 MG Tablet PO (09:18)
[2020-10-14] MEDS: Pantoprazole Sodium 40 MG Tablet PO (09:18)
[2020-10-14] MEDS: Docusate Sodium 100 MG Capsule PO ×2 (09:18→20:55)
[2020-10-14] MEDS: amLODIPine 10 MG Tablet PO (09:18)
[2020-10-14] MEDS: Calcium Carb/Vitamin D 1 TABLET Tablet PO ×2 (09:18→17:25)
[2020-10-14 12:05] LABS: Bedside Glucose 191 mg/dL (70-110)
[2020-10-14] MEDS: Insulin Lispro 100 UNIT/ML INSULN.PEN 14 UNIT SC ×2 (12:44→17:25)
--- NOTE | 2020-10-14 13:56 | PN.HOSP_ITS ---
Subjective Subjective Feels about the same as she did yesterday. No issues overnight, she is stable on her 3 L nasal cannula Objective Data Objective Data Vital Signs: Vital Signs Temp Pulse Resp BP Pulse Ox 97.7 F L 79 28 H 153/58 H 94 10/14/20 09:10 10/14/20 10:22 10/14/20 09:43 10/14/20 10:22 10/14/20 09:10 Oxygen Flow Rate (L/min) 3 Oxygen Delivery Method Nasal Cannula Weight: 225 lb 15.581 oz Body Mass Index (BMI) 37.5 Intake & Output: Intake and Output for Last 24 Hours 10/13/20 10/14/20 10/15/20 03:59 03:59 03:59 Intake Total 420 / 420 1110 / 1110 600 / 600 Output Total 750 / 750 1325 / 1325 615 / 615 Balance -330 / -330 -215 / -215 -15 / -15 Lab / Micro Data Result Diagrams: 10/14/20 05:31 10/14/20 05:31 Labs: Laboratory Results - last 24 hr 10/13/20 10/13/20 10/14/20 17:27 21:29 05:31 WBC 10.8 RBC 3.07 L Hgb 9.5 L Hct 31.5 L MCV 102.6 H MCH 30.9 MCHC 30.2 L RDW Std Deviation 54.4 H RDW Coeff of Deepali 14.7 H Plt Count 219 MPV 10.9 Immature Gran % (Auto) 0.600 Neut % (Auto) 78.6 H Lymph % (Auto) 12.0 L [place] % (Auto) 7.4 Eos % (Auto) 1.1 Baso % (Auto) 0.3 Absolute Neuts (auto) 8.5 H Absolute Lymphs (auto) 1.29 Nucleated RBC % 0.3 Sodium Potassium Chloride Carbon Dioxide Anion Gap BUN Creatinine Estim Creat Clear Calc Est GFR (MDRD) Af Amer Est GFR (MDRD) Non-Af BUN/Creatinine Ratio Glucose Calcium Magnesium Total Bilirubin AST ALT Alkaline Phosphatase Total Protein Albumin Globulin Albumin/Globulin Ratio POC Glucose 247 H 254 H 10/14/20 10/14/20 10/14/20 05:31 08:41 12:03 WBC RBC Hgb Hct MCV MCH MCHC RDW Std Deviation RDW Coeff of Deepali Plt Count MPV Immature Gran % (Auto) Neut % (Auto) Lymph % (Auto) [place] % (Auto) Eos % (Auto) Baso % (Auto) Absolute Neuts (auto) Absolute Lymphs (auto) Nucleated RBC % Sodium 144 Potassium 4.3 Chloride 107 Carbon Dioxide 30.0 Anion Gap 7 BUN 52 H Creatinine 1.73 H Estim Creat Clear Calc 21.78 Est GFR (MDRD) Af Amer 36 L Est GFR (MDRD) Non-Af 30 L BUN/Creatinine Ratio 30.1 H Glucose 138 H Calcium 9.2 Magnesium 2.1 Total Bilirubin 0.70 AST 14 L ALT 16 Alkaline Phosphatase 97 Total Protein 7.2 Albumin 2.4 L Globulin 4.8 H Albumin/Globulin Ratio 0.5 L POC Glucose 161 H 191 H Micro: Microbiology 10/12/20 06:05 Mucosa - Nose SARS-CoV-2 Antigen (Rapid) - Final Physical Exam Const alert, oriented x3 and no apparent distress General Appearance: cooperative Exam Limitations: no limitations HEENT normocephalic and moist oral mucous membranes Eyes PERRL, EOMs intact bilaterally and conjunctivae normal Neck supple and no JVD Resp normal respiratory effort, no retractions, no use of accessory muscles and clear to auscultation bilaterally Resp Narrative: diminished breath sounds bibasally, no wheezes or crackles. on baseline 3L of oxygen Auscultation: diminished lung sounds; Negative for crackles, rales, rhonchi or wheezes Cardio regular rate, regular rhythm, S1 normal heart sound, S2 normal heart sound and no murmurs Cardio Narrative: afib, rate controlled GI soft to palpation, non-tender and non-distended; Negative for hepatosplenomegaly Extremity normal to inspection, full ROM and no clubbing, cyanosis or edema General Extremity: edema bilateral lower extremity Details: mild; Negative for clubbing or cyanosis Skin no rashes or lesions noted Neuro no focal motor deficits and no sensory deficits noted Sensorium / Orientation: awake and alert Psych affect normal Appearance: appropriate Assessment & Plan Assessment/Plan (1) Acute on chronic diastolic (congestive) heart failure: PLAN: #Acute on chronic HFpEF * being diuresed with IV lasix. * in cumulative negative balance by 610mls * monitor intake and output * fluid restriction to 1500cc daily * 10/14/2020: Continue with IV Lasix twice daily and monitor urine output #Chronic hypoxic respiratory failure * remains on 3L of oxygen, which is her baseline. * titrate oxygen to maintain sats >90% * breathing treatment with bronchodilators * 10/14/2020: Continue with breathing treatments, she is maintained on a 3 L nasal cannula #CAD s/p CABG * On aspirin, high intensity statin and Imdur as well as metoprolol * #ANA: on CPAP qhs #hypertension; on amlodipine and clonidine as well as metoprolol. #Type 2 diabetes mellitus: On Lantus insulin 60 units nightly and sliding scale. Accu-Cheks AC at bedtime. DVT: On Eliquis Charges/Coding Visit Charges Inpatient E&M: 54451 Subs Hosp L2
[2020-10-14 17:16] LABS: Bedside Glucose 117 mg/dL (70-110)
[2020-10-14] MEDS: hydrALAZINE 20 MG/ML Vial 10 MG IV (20:54)
[2020-10-14] MEDS: Atorvastatin Calcium 40 MG Tablet PO (20:55)
[2020-10-14 21:26] LABS: Bedside Glucose 191 mg/dL (70-110)
[2020-10-15] VITALS (13 sets, daily range): BP systolic 136–173; BP diastolic 50–71; PULSE 68–85; RESP 16–20; TEMP 36.4–36.9; O2SAT 92–99
[2020-10-15] MEDS: Ipratropium/Albuterol Sulfate 3 ML AMPUL.NEB INHALATION ×3 (04:09→10:54)
[2020-10-15] MEDS: guaiFENesin 10 ML UDC (200MG/10ML) PO (05:13)
[2020-10-15 06:26] LABS: Anion Gap 5 (5-15); BUN 45 mg/dL (7-18); BUN/Creat Ratio 27.3 RATIO (10-20); Calcium,Total 9.1 mg/dL (8.5-10.1); Chloride 111 mmol/L (98-107); Creatinine, Serum 1.65 mg/dL (0.55-1.02); EST Glomerular Filtration Rate 32 mL/min (>60); Est Glom Filt Rate - Afr Amer 38 mL/min (>60); Estimated Creatinine Clearance 22.84 ml/min; Glucose 110 mg/dL (74-106); Potassium 4.2 mmol/L (3.5-5.1); Sodium Level 146 mmol/L (136-145)
[2020-10-15 06:55] LABS: Bedside Glucose 137 mg/dL (70-110)
[2020-10-15] MEDS: Aspirin E.C. 81 MG Tablet PO (08:41)
[2020-10-15] MEDS: Calcium Carb/Vitamin D 1 TABLET Tablet PO ×2 (08:42→16:57)
[2020-10-15] MEDS: Insulin Lispro 100 UNIT/ML INSULN.PEN 10 UNIT SC (08:42)
[2020-10-15] MEDS: Docusate Sodium 100 MG Capsule PO ×2 (10:38→21:51)
[2020-10-15] MEDS: APIXABAN 2.5 MG TABLET PO ×2 (10:39→21:51)
[2020-10-15] MEDS: Metoprolol Tartrate 25 MG Tablet PO ×2 (10:39→21:51)
[2020-10-15] MEDS: Isosorbide Mononitrate 60 MG Tablet PO (10:39)
[2020-10-15] MEDS: Furosemide 40 MG/4 ML Vial IV ×2 (10:39→18:17)
[2020-10-15] MEDS: amLODIPine 10 MG Tablet PO (10:40)
[2020-10-15] MEDS: 0.9% Saline Lock 10 ML Syringe IV ×2 (10:40→22:03)
[2020-10-15] MEDS: Pantoprazole Sodium 40 MG Tablet PO (10:40)
--- NOTE | 2020-10-15 10:48 | PCM.PN.HOSP ---
Subjective Subjective See paper chart for billing and note Objective Data Objective Data Vital Signs: Vital Signs Temp Pulse Resp BP Pulse Ox 98.1 F 68 17 164/70 H 99 10/15/20 08:38 10/15/20 10:39 10/15/20 08:38 10/15/20 10:39 10/15/20 08:38 Oxygen Flow Rate (L/min) 3 Oxygen Delivery Method Nasal Cannula Weight: 222 lb 7.143 oz Body Mass Index (BMI) 37.5 Intake & Output: Intake and Output for Last 24 Hours 10/14/20 10/15/20 10/16/20 03:59 03:59 03:59 Intake Total 1110 / 1110 1220 / 1220 50 / 50 Output Total 1325 / 1325 1665 / 1665 250 / 250 Balance -215 / -215 -445 / -445 -200 / -200 Lab / Micro Data Result Diagrams: 10/14/20 05:31 10/15/20 05:08 Labs: Laboratory Results - last 24 hr 10/14/20 10/14/20 10/14/20 12:03 17:10 20:47 Sodium Potassium Chloride Carbon Dioxide Anion Gap BUN Creatinine Estim Creat Clear Calc Est GFR (MDRD) Af Amer Est GFR (MDRD) Non-Af BUN/Creatinine Ratio Glucose Calcium POC Glucose 191 H 117 H 191 H 10/15/20 10/15/20 05:08 06:51 Sodium 146 H Potassium 4.2 Chloride 111 H Carbon Dioxide 30.0 Anion Gap 5 BUN 45 H Creatinine 1.65 H Estim Creat Clear Calc 22.84 Est GFR (MDRD) Af Amer 38 L Est GFR (MDRD) Non-Af 32 L BUN/Creatinine Ratio 27.3 H Glucose 110 H Calcium 9.1 POC Glucose 137 H Micro: Microbiology 10/12/20 06:05 Mucosa - Nose SARS-CoV-2 Antigen (Rapid) - Final
[2020-10-15] MEDS: Insulin Lispro 100 UNIT/ML INSULN.PEN 14 UNIT SC ×2 (11:26→16:57)
[2020-10-15] MEDS: Insulin Lispro 100 UNIT/ML INSULN.PEN SC ×2 (11:26→21:49)
[2020-10-15 11:36] LABS: Bedside Glucose 197 mg/dL (70-110)
[2020-10-15 17:05] LABS: Bedside Glucose 99 mg/dL (70-110)
[2020-10-15] MEDS: Atorvastatin Calcium 40 MG Tablet PO (21:51)
[2020-10-15 22:00] LABS: Bedside Glucose 173 mg/dL (70-110)
[2020-10-16] VITALS (9 sets, daily range): BP systolic 151–176; BP diastolic 50–71; PULSE 65–75; RESP 16–18; TEMP 36.5–36.7; O2SAT 90–97
[2020-10-16 06:50] LABS: Bedside Glucose 122 mg/dL (70-110)
[2020-10-16 06:51] LABS: Absolute Lymphocyte Count 0.87 X10^3/uL (0.83-4.51); Absolute Neutrophil Count 6.7 X10^3/uL (2.0-7.7); Basophil# 0.03 X10^3/uL; Basophil% 0.3 % (0-1); Eosinophil# 0.35 X10^3/uL; Eosinophils% 4.1 % (0-5); Hemoglobin 9.6 g/dL (12.0-15.0); Lymphocyte # 0.87 X10^3/ul (0.83-4.51); Lymphocyte % 10.1 % (19-41); Mean Corpuscular Hgb 31.2 pg (27.0-32.0); Mean Corpuscular Volume 103.9 fL (81-99); Monocyte# 0.63 X10^3/uL; Monocyte% 7.3 % (0-10); NRBC Flagged by Analyzer 0 % (0-5); Neutrophil # 6.66 X10^3/uL (2.7-7.7); Neutrophil % 77.7 % (47-70); Platelet Count 234 K/mm3 (150-450); RBC Distribution Width CV 14.8 % (11.6-14.6); RBC Distribution Width SD 55.7 fl (35.1-43.9); Red Blood Count 3.08 M/mm3 (4.2-5.4); White Blood Count 8.6 K/mm3 (4.4-11.0)
[2020-10-16 07:17] LABS: Anion Gap 5 (5-15); BUN 44 mg/dL (7-18); BUN/Creat Ratio 25.1 RATIO (10-20); Calcium,Total 8.9 mg/dL (8.5-10.1); Chloride 108 mmol/L (98-107); Creatinine, Serum 1.75 mg/dL (0.55-1.02); EST Glomerular Filtration Rate 29 mL/min (>60); Est Glom Filt Rate - Afr Amer 36 mL/min (>60); Estimated Creatinine Clearance 21.53 ml/min; Glucose 109 mg/dL (74-106); Potassium 4.5 mmol/L (3.5-5.1); Sodium Level 146 mmol/L (136-145)
[2020-10-16] MEDS: Isosorbide Mononitrate 60 MG Tablet PO (08:26)
[2020-10-16] MEDS: Calcium Carb/Vitamin D 1 TABLET Tablet PO (08:26)
[2020-10-16] MEDS: Docusate Sodium 100 MG Capsule PO (08:27)
[2020-10-16] MEDS: amLODIPine 10 MG Tablet PO (08:27)
[2020-10-16] MEDS: Aspirin E.C. 81 MG Tablet PO (08:27)
[2020-10-16] MEDS: Pantoprazole Sodium 40 MG Tablet PO (08:27)
[2020-10-16] MEDS: Metoprolol Tartrate 25 MG Tablet PO (08:27)
[2020-10-16] MEDS: Insulin Lispro 100 UNIT/ML INSULN.PEN 10 UNIT SC (08:27)
[2020-10-16] MEDS: APIXABAN 2.5 MG TABLET PO (08:28)
[2020-10-16] MEDS: Insulin Lispro 100 UNIT/ML INSULN.PEN 14 UNIT SC (11:22)
[2020-10-16] MEDS: Insulin Lispro 100 UNIT/ML INSULN.PEN SC (11:22)
[2020-10-16 11:56] LABS: Bedside Glucose 158 mg/dL (70-110)
--- NOTE | 2020-10-16 12:22 | PCM.TXEXTCAR ---
Diet 10/12/20 07:53 Diet: Cardiac: Calorie-Controlled Food consistency:: Mechanical (Minced/Moist) Liquid Consistency:: Regular/Thin Diet Comments: sippy cup How many daily calories?: 1800 calorie Routine Orders/Code Status Routine Lab Work: CBC and BMP Therapies Physical Therapy: Eval and Treat Occupational Therapy: Eval and Treat Problem/Diagnosis (1) Acute on chronic diastolic (congestive) heart failure: Status: Acute Allergies/Procedures Done in Hospital Allergies LEANDER Inhibitors Allergy (Verified 08/01/20 11:14) Unknown Dietary and Speech Recommendations Dietitian Recommendations/Changes: continue cardiac, 1800 calorie controlled diet w/ fluid restriction as indicated; will add mechanical soft modification per skilled nursing order- recommend FEED INSPECTION SUPERVISOR consult if further chewing/swallowing issues persist. Discharge Plan Admission Admit Date/Time: 10/12/20 07:35 Attending Provider: Jesse Carmona Primary Care Provider: Eliot Loja Discharge Orders/Prescriptions Prescriptions: No Action nystatin 100,000 unit/gram powder 1 applic TOPICAL BID RF: 0 amlodipine 10 mg tablet 10 mg PO DAILY RF: 0 atorvastatin 40 mg tablet 40 mg PO QHS RF: 0 bisacodyl 10 mg suppository 10 mg RC DAILY PRN PRN (Reason: Constipation) RF: 0 clonidine 0.1 mg/24 hr patch weekly 1 patch transdermal QWEEK RF: 0 isosorbide mononitrate 60 mg tablet extended release 24 hr 60 mg PO DAILY RF: 0 albuterol sulfate 90 mcg/actuation aerosol powdr breath activated 2 inh INHALATION Q2H PRN (Reason: Shortness Of Breath) RF: 0 insulin glargine 100 unit/mL (3 mL) insulin pen 60 unit subcut QHS RF: 0 insulin lispro 100 unit/mL insulin pen See Rx Instructions subcut TIDAC RF: 0 dulaglutide 1.5 mg/0.5 mL pen injector 1.5 mg SC QWEEK RF: 0 omeprazole 40 MG capsule,delayed release(DR/EC) 40 mg PO DAILY RF: 0 calcium carbonate-vitamin D3 1 EACH tablet 1 ea PO BID RF: 0 aspirin 81 MG tablet 81 mg PO DAILY@0800 RF: 0 magnesium hydroxide 30 ML suspension 30 ml PO DAILY PRN PRN (Reason: Constipation) RF: 0 metoprolol tartrate 25 MG tablet 25 mg PO BID RF: 0 apixaban 2.5 MG tablet 2.5 mg PO BID RF: 0 ipratropium bromide 12.9 GM HFA aerosol inhaler 2 puff IH Q4H PRN PRN (Reason: Sob &/Or Wheezing) RF: 0 docusate sodium 100 MG capsule 100 mg PO BID RF: 0 acetaminophen 325 MG tablet 650 mg PO Q4H PRN PRN (Reason: Mild Pain (scale 0-3)/T>100.7) RF: 0 guaifenesin 10 ML liquid 10 ml PO Q4H PRN PRN (Reason: Cough) RF: 0 furosemide 40 mg tablet 40 mg PO BID Qty: 0 RF: 0 Referrals / Follow Up: Eliot Loja MD [Primary Care Provider] -
--- NOTE | 2020-10-16 14:47 | CHAPLAIN ---
Type of Pastoral Visit _x__ Initial Visit ___ Follow-up Visit ___ On-call Visit ___ General Patient Visit ___ Spiritual Assessment ___ Family Conference ___ Bereavement ___ Rapid Response ___ Code Blue ___ Other (describe below) Pastoral Care Referral From _x__ Patient ___ Family ___ Nurse ___ Physician ___ [employer] Advanced Operator Maintainer ___ Portable Track Line Marker ___ Other (describe below) Sacrament/Intervention ___ Active listening ___ Anointing ___ Jew ___ Bereavement ___ Communion ___ Roberta exploration ___ ___ Life review ___ Prayer ___ Reconciliation ___ Sacrament of Sick _x__ Supportive presence ___ Wedding ___ Other (describe below) Pastoral Comments patient states she is ok and declines further support
--- NOTE | 2020-10-16 15:20 | PCA ---
faxed d/c paperwork and COVID results to [facility],
--- NOTE | 2020-10-16 15:38 | NURSING ---
spoke with son notified patient leaving to go back to [facility]
--- NOTE | 2020-10-16 15:43 | NURSING ---
[facility]
--- NOTE | 2020-10-16 16:11 | PCM.DC.SUM ---
Providers Date of Admission: 10/12/20 Primary Care Physician: Dr. Eliot Loja MD Reason For Visit: ACUTE ON CHRONIC HEART FAILURE Diagnosis Discharge Diagnosis (1) Acute on chronic diastolic (congestive) heart failure: Status: Acute Code(s): I50.33 - Acute on chronic diastolic (congestive) heart failure Medications at Discharge Home Medications calcium carbonate-vitamin D3 1 ea PO BID 04/19/17 omeprazole 40 mg PO DAILY 04/19/17 apixaban 2.5 mg PO BID tab 10/27/17 aspirin 81 mg PO DAILY@0800 tab 10/27/17 magnesium hydroxide 30 ml PO DAILY PRN PRN udc 10/27/17 metoprolol tartrate 25 mg PO BID tab 10/27/17 nystatin 100,000 unit/gram topical powder 1 applic TOPICAL BID 02/24/18 amlodipine 10 mg tablet 10 mg PO DAILY 09/08/18 atorvastatin 40 mg tablet 40 mg PO QHS 02/25/19 bisacodyl 10 mg rectal suppository 10 mg RC DAILY PRN PRN 02/25/19 clonidine 0.1 mg/24 hr weekly transdermal patch 1 patch TRANSDERMAL QWEEK 02/25/19 isosorbide mononitrate 60 mg tablet,extended release 24 hr 60 mg PO DAILY 10/05/19 acetaminophen 650 mg PO Q4H PRN PRN 10/11/19 docusate sodium 100 mg PO BID 10/11/19 guaifenesin 10 ml PO Q4H PRN PRN 10/11/19 ipratropium bromide 2 puff IH Q4H PRN PRN 10/11/19 furosemide 40 mg PO BID #0 tab 10/13/19 albuterol sulfate 90 mcg/actuation breath activated powder inhaler 2 inh INHALATION Q2H PRN each 08/01/20 dulaglutide 1.5 mg/0.5 mL subcutaneous pen injector 1.5 mg SC QWEEK ml 08/01/20 insulin glargine 100 unit/mL (3 mL) subcutaneous pen 60 unit SUBCUT QHS ml 08/01/20 insulin lispro 100 unit/mL subcutaneous pen See Rx Instructions SUBCUT TIDAC [email or web address] 08/01/20 Hospital Course Operations None Procedures None Summary of Care Provided Minutes Spent on Discharge: 42 Hospital Course: Per HPI: SABRINA GONZALEZ, is a 85 F with an extensive PMH as outlined who presents with a complaint of shortness of breath. She is normally on 3L of oxygen in her SNF, but was noted to be much more short of breath than usual. She admitted to a cough which was not productive, but denied any chest pain, palpitations, dizziness, nausea or vomiting. Review of systems is otherwise negative. Vitals in the ED showed temp of 97.6F, [place] of 69, BP of 192/83, and shew as saturating at 96% on 3.5L of oxygen. Labs showed wbc of 11.7. Hb of 10.8 and platelets of 208. CXR showed bilateral edema vs infiltrates. EKG showed atrial fibrillation, rate controlled. BNP machine is currently out of order. She is being admitted to be managed for acute on chronic combined heart failure. Hospital Course: #Acute on chronic HFpEF being diuresed with IV lasix. in cumulative negative balance by 610mls monitor intake and output fluid restriction to 1500cc daily 10/14/2020: Continue with IV Lasix twice daily and monitor urine output 10/16/2020: Her creatinine is going between 1.6 and 1.7, it is improved compared to when she came in at around two. I did hold her Lasix for today and recommend holding it for another day or two and then restarting it at the [facility]. I did discuss with her how she felt and she states that she feels much better today than when she came in denies any significant shortness of breath. I discussed with her plan for discharge today back to the retirement and she expressed a desire for discharge today. Do recommend outpatient monitoring of her BMP and CBC. #Chronic hypoxic respiratory failure remains on 3L of oxygen, which is her baseline. titrate oxygen to maintain sats >90% breathing treatment with bronchodilators 10/14/2020: Continue with breathing treatments, she is maintained on a 3 L nasal cannula 10/16/2020: She is on her baseline home O2 of 3 L nasal cannula and has been doing well. #CAD s/p CABG On aspirin, high intensity statin and Imdur as well as metoprolol #ANA: on CPAP qhs #hypertension; on amlodipine and clonidine as well as metoprolol. #Type 2 diabetes mellitus: On Lantus insulin 60 units nightly and sliding scale. Accu-Cheks AC at bedtime. Physical Exam Const alert, oriented x3 and no apparent distress General Appearance: cooperative HEENT normocephalic and moist oral mucous membranes Eyes PERRL, EOMs intact bilaterally and conjunctivae normal Neck supple and no JVD Resp normal respiratory effort, no retractions, no use of accessory muscles and clear to auscultation bilaterally Auscultation: diminished lung sounds; Negative for crackles, rales, rhonchi or wheezes Cardio regular rate, regular rhythm, S1 normal heart sound, S2 normal heart sound and no murmurs GI soft to palpation, non-tender and non-distended; Negative for hepatosplenomegaly Extremity no clubbing, cyanosis or edema Skin no rashes or lesions noted Neuro no focal motor deficits and no sensory deficits noted Psych affect normal Appearance: appropriate Weight / BMI Weight Weight: 222 lb 10.67 oz Body Mass Index (BMI) 37.5 ABG / Lab / Microbiology Data Result Diagrams: 10/16/20 05:57 10/16/20 05:57 Laboratory: Laboratory Results - last 24 hr 10/15/20 10/15/20 10/16/20 16:54 21:45 05:57 WBC 8.6 RBC 3.08 L Hgb 9.6 L Hct 32.0 L MCV 103.9 H MCH 31.2 MCHC 30.0 L RDW Std Deviation 55.7 H RDW Coeff of Deepali 14.8 H Plt Count 234 MPV 11.0 Immature Gran % (Auto) 0.500 Neut % (Auto) 77.7 H Lymph % (Auto) 10.1 L [place] % (Auto) 7.3 Eos % (Auto) 4.1 Baso % (Auto) 0.3 Absolute Neuts (auto) 6.7 Absolute Lymphs (auto) 0.87 Nucleated RBC % 0 Sodium Potassium Chloride Carbon Dioxide Anion Gap BUN Creatinine Estim Creat Clear Calc Est GFR (MDRD) Af Amer Est GFR (MDRD) Non-Af BUN/Creatinine Ratio Glucose Calcium POC Glucose 99 173 H 10/16/20 10/16/20 10/16/20 05:57 06:28 11:20 WBC RBC Hgb Hct MCV MCH MCHC RDW Std Deviation RDW Coeff of Deepali Plt Count MPV Immature Gran % (Auto) Neut % (Auto) Lymph % (Auto) [place] % (Auto) Eos % (Auto) Baso % (Auto) Absolute Neuts (auto) Absolute Lymphs (auto) Nucleated RBC % Sodium 146 H Potassium 4.5 Chloride 108 H Carbon Dioxide 33.0 H Anion Gap 5 BUN 44 H Creatinine 1.75 H Estim Creat Clear Calc 21.53 Est GFR (MDRD) Af Amer 36 L Est GFR (MDRD) Non-Af 29 L BUN/Creatinine Ratio 25.1 H Glucose 109 H Calcium 8.9 POC Glucose 122 H 158 H Microbiology: Microbiology 10/16/20 14:33 SARS-CoV-2 Antigen (Rapid) - Final Mucosa - Nose Microbiology 10/16/20 14:33 Mucosa - Nose SARS-CoV-2 Antigen (Rapid) - Final 10/12/20 06:05 Mucosa - Nose SARS-CoV-2 Antigen (Rapid) - Final Meaningful Use Info Meaningful Use Diagnoses (Choose all that apply): None applicable Discharge Plan Admission Admit Date/Time: 10/12/20 07:35 Attending Provider: Jesse Carmona Primary Care Provider: Eliot Loja Instructions Patient Instructions: ED Chest Pain, Noncardiac Discharge Orders/Prescriptions Prescriptions: Continued nystatin 100,000 unit/gram powder 1 applic TOPICAL BID RF: 0 amlodipine 10 mg tablet 10 mg PO DAILY RF: 0 atorvastatin 40 mg tablet 40 mg PO QHS RF: 0 bisacodyl 10 mg suppository 10 mg RC DAILY PRN PRN (Reason: Constipation) RF: 0 clonidine 0.1 mg/24 hr patch weekly 1 patch transdermal QWEEK RF: 0 isosorbide mononitrate 60 mg tablet extended release 24 hr 60 mg PO DAILY RF: 0 albuterol sulfate 90 mcg/actuation aerosol powdr breath activated 2 inh INHALATION Q2H PRN (Reason: Shortness Of Breath) RF: 0 insulin glargine 100 unit/mL (3 mL) insulin pen 60 unit subcut QHS RF: 0 insulin lispro 100 unit/mL insulin pen See Rx Instructions subcut TIDAC RF: 0 dulaglutide 1.5 mg/0.5 mL pen injector 1.5 mg SC QWEEK RF: 0 omeprazole 40 MG capsule,delayed release(DR/EC) 40 mg PO DAILY RF: 0 calcium carbonate-vitamin D3 1 EACH tablet 1 ea PO BID RF: 0 aspirin 81 MG tablet 81 mg PO DAILY@0800 RF: 0 magnesium hydroxide 30 ML suspension 30 ml PO DAILY PRN PRN (Reason: Constipation) RF: 0 metoprolol tartrate 25 MG tablet 25 mg PO BID RF: 0 apixaban 2.5 MG tablet 2.5 mg PO BID RF: 0 ipratropium bromide 12.9 GM HFA aerosol inhaler 2 puff IH Q4H PRN PRN (Reason: Sob &/Or Wheezing) RF: 0 docusate sodium 100 MG capsule 100 mg PO BID RF: 0 acetaminophen 325 MG tablet 650 mg PO Q4H PRN PRN (Reason: Mild Pain (scale 0-3)/T>100.7) RF: 0 guaifenesin 10 ML liquid 10 ml PO Q4H PRN PRN (Reason: Cough) RF: 0 furosemide 40 mg tablet 40 mg PO BID Qty: 0 RF: 0 Referrals / Follow Up: Eliot Loja MD [Primary Care Provider] - Disposition Discharge Orders: Discharge Patient (Routine); Ordered 10/16/20 Ordered By: Dr. Jesse Carmona Charges/Coding Visit Charges Inpatient E&M: 98026 Disch Hosp
[2020-10-17 08:48] LABS: Vitamin B12 328 pg/mL (211-911)
== END 2020-10-16 16:11 | disposition skilled nursing facility (03) | DRG 292 ==
LOC: ED 07:14 → PCU 07:38
PROVIDERS: Family Medicine; Admitting Provider Student in an Organized Health Care Education/Training Program; Emergency Provider Emergency Medicine; PCP Internal Medicine; Visit Provider Family Medicine
DX: I11.0 Hypertensive heart disease with heart failure (principal); J96.11 Chronic respiratory failure with hypoxia; I50.33 Acute on chronic diastolic (congestive) heart failure; I25.10 Atherosclerotic heart disease of native coronary artery without angina pectoris; Z95.1 Presence of aortocoronary bypass graft; E11.9 Type 2 diabetes mellitus without complications; Z79.4 Long term (current) use of insulin; Z99.81 Dependence on supplemental oxygen; Z79.02 Long term (current) use of antithrombotics/antiplatelets; Z79.51 Long term (current) use of inhaled steroids; Z79.899 Other long term (current) drug therapy; G47.33 Obstructive sleep apnea (adult) (pediatric)
CPT/HCPCS: 36415; 71045; 80048; 80053; 82607; 82962; 83735; 83880; 84484; 85025; 87426; 93005; 94640; 97110; 97162; 97166; 97530; 97535; 99285; A4216; J1940

== ENCOUNTER → 2020-10-17 04:00 | Outpatient (REF) | payer MEDICARE, MEDICAID, SELFPAY ==
[2020-10-12 08:00] VITALS: BMI 37.5
[2020-10-17 07:02] LABS: Hematocrit 32.3 % (37-47); Hemoglobin 9.8 g/dL (12.0-15.0); Mean Corp Hgb Conc 30.3 g/dL (32-36); Mean Corpuscular Hgb 31.1 pg (27.0-32.0); Mean Corpuscular Volume 102.5 fL (81-99); Mean Platelet Vol. 11.2 fl (6.2-12.0); Platelet Count 222 K/mm3 (150-450); RBC Distribution Width CV 14.6 % (11.6-14.6); RBC Distribution Width SD 54.3 fl (35.1-43.9); Red Blood Count 3.15 M/mm3 (4.2-5.4); White Blood Count 7.2 K/mm3 (4.4-11.0)
[2020-10-17 07:29] LABS: Anion Gap 4 (5-15); BUN 40 mg/dL (7-18); BUN/Creat Ratio 26.8 RATIO (10-20); Calcium,Total 8.6 mg/dL (8.5-10.1); Chloride 109 mmol/L (98-107); Creatinine, Serum 1.49 mg/dL (0.55-1.02); EST Glomerular Filtration Rate 35 mL/min (>60); Est Glom Filt Rate - Afr Amer 43 mL/min (>60); Glucose 68 mg/dL (74-106); Potassium 3.9 mmol/L (3.5-5.1); Sodium Level 145 mmol/L (136-145)
[2020-10-26 14:41] VITALS: BMI 36.0
== END ==
LOC: OLS.SW300 04:00
PROVIDERS: PCP Internal Medicine; Visit Provider Family Medicine
DX: I50.9 Heart failure, unspecified (principal); E11.9 Type 2 diabetes mellitus without complications
CPT/HCPCS: 36415; 80048; 85027

== ENCOUNTER 2020-10-21 12:01 | Inpatient (IN) | payer MEDICARE, MEDICAID, SELFPAY ==
[2020-10-12 08:00] VITALS: BMI 37.5
[2020-10-21] VITALS (17 sets, daily range): BP systolic 141–180; BP diastolic 62–73; PULSE 63–85; RESP 17–25; TEMP 36.5–36.6; O2SAT 91–100; BMI 42.5; BMI 44.6
--- NOTE | 2020-10-21 12:50 | EKG12_ITS ---
Test Reason : SOB Blood Pressure : / mmHG Vent. Rate : 060 BPM Atrial Rate : 082 BPM P-R Int : 000 ms QRS Dur : 122 ms QT Int : 450 ms P-R-T Axes : 000 -07 090 degrees QTc Int : 450 ms Atrial fibrillation Right bundle branch block Possible Lateral infarct , age undetermined Abnormal ECG Confirmed by YIMI STOVALL, NICOLE ([id number]), digital editor LEVON MCCALL ([id number]) on 10/25/2020 9:11:37 AM Referred By: KAM Confirmed By:NICOLE GELLER MD
--- NOTE | 2020-10-21 12:50 | RAD_ITS ---
EXAM: XR CHEST, 1 VIEW : 1935 CLINICAL INDICATION: dyspnea TECHNIQUE: Frontal view of the chest. This report was created using [employer] report generation technology. COMPARISON: None. FINDINGS: LUNGS AND PLEURAL SPACES: There is diffuse bilateral airspace disease which has increased from the reference exam. No pneumothorax. No effusion. HEART: Cardiac silhouette is enlarged in size. MEDIASTINUM: Central airways and mediastinal contour are unremarkable. BONES/JOINTS: Unremarkable. SOFT TISSUES: Unremarkable. RAD/Chest 1 View (Portable) IMPRESSION: Cardiomegaly with increasing bilateral airspace disease which may represent worsening edema or pneumonia. at 1426 Reported and signed by: Heladio Alexis MD Electronically Signed: Heladio Alexis MD at 14:25 EDT Tel , Service support ,
--- NOTE | 2020-10-21 12:53 | EDS_ITS ---
HPI History of Present Illness Chief Complaint: Shortness of Breath Narrative Narrative: 85-year-old female presenting with dyspnea. She states that she wears 3 L of oxygen at baseline. She has a history of CHF, ANA, NSTEMI, CABG, ischemic cardiomyopathy, paroxysmal A. fib, pulmonary hypertension. She states that she was discharged home from [facility] a few days ago. She is unsure how much Lasix that she takes. She states that she is more short of breath than usual and that this started about 2 days ago. Patient notes that she has more lower extremity edema. She denies fever, chills, cough. [facility] Medical History Acute on chronic combined systolic and diastolic heart failure Anemia Atherosclerosis of coronary artery bypass graft without angina pectoris Atherosclerosis of coronary artery of [place] heart without angina pectoris Chronic hypoxemic respiratory failure Chronic renal failure, stage 3 (moderate) Colon polyp Gastric ulcer Ischemic cardiomyopathy Non-rheumatic tricuspid valve insufficiency Nonrheumatic mitral (valve) insufficiency NSTEMI (non-ST elevated myocardial infarction) (10/20/17) Obesity Old anterior wall myocardial infarction ANA (obstructive sleep apnea) Paroxysmal atrial fibrillation Secondary pulmonary arterial hypertension Type 2 diabetes mellitus Home Medications calcium carbonate-vitamin D3 1 ea PO BID 04/19/17 [History Last Taken 09/22/17 12:00] omeprazole 40 mg PO DAILY 04/19/17 [History Last Taken 09/22/17 06:30] apixaban 2.5 mg PO BID tab 10/27/17 [Rx Last Taken Unknown] aspirin 81 mg PO DAILY@0800 tab 10/27/17 [Rx Last Taken Unknown] metoprolol tartrate 25 mg PO BID tab 10/27/17 [Rx Last Taken Unknown] nystatin 100,000 unit/gram topical powder 1 applic TOPICAL BID 02/24/18 [History Last Taken Unknown] amlodipine 10 mg tablet 10 mg PO DAILY 09/08/18 [History Last Taken Unknown] atorvastatin 40 mg tablet 40 mg PO QHS 02/25/19 [History Last Taken Unknown] bisacodyl 10 mg rectal suppository 10 mg RC DAILY PRN PRN 02/25/19 [History Last Taken Unknown] clonidine 0.1 mg/24 hr weekly transdermal patch 1 patch TRANSDERMAL QWEEK [History Last Taken Unknown] isosorbide mononitrate 60 mg tablet,extended release 24 hr 60 mg PO DAILY 10/05/19 [History Last Taken Unknown] acetaminophen 650 mg PO Q4H PRN PRN 10/11/19 [History Last Taken Unknown] docusate sodium 100 mg PO BID 10/11/19 [History Last Taken Unknown] guaifenesin 10 ml PO Q4H PRN PRN 10/11/19 [History Last Taken Unknown] ipratropium bromide 2 puff IH Q4H PRN PRN 10/11/19 [History Last Taken Unknown] albuterol sulfate 90 mcg/actuation breath activated powder inhaler 2 inh INHALATION Q2H PRN each 08/01/20 [History Last Taken Unknown] dulaglutide 1.5 mg/0.5 mL subcutaneous pen injector 1.5 mg SC QWEEK ml 08/01/20 [History Last Taken Unknown] insulin glargine 100 unit/mL (3 mL) subcutaneous pen 60 unit SUBCUT QHS ml 08/01/20 [History Last Taken Unknown] insulin lispro 100 unit/mL subcutaneous pen See Rx Instructions SUBCUT TIDAC insuln.pen 08/01/20 [History Last Taken Unknown] furosemide 20 mg PO DAILY 10/21/20 [History Last Taken Unknown] furosemide 40 mg PO BREAKFAST 10/21/20 [History Last Taken Unknown] potassium chloride 20 meq PO DAILY 10/21/20 [History Last Taken Unknown] Allergy/AdvReac Type Severity Reaction Status Date / Time LEANDER Inhibitors Allergy Unknown Verified 10/21/20 12:05 Family History Other No pertinent family history Surgical History H/O coronary artery bypass surgery History of appendectomy History of left heart catheterization (10/24/17) History of tonsillectomy and adenoidectomy Hx of cholecystectomy Social History Smoking Status: Never smoker alcohol intake: never substance use type: does not use ROS ROS ED Constitutional Constitutional ED: Denies chills or fever(s) Eyes Eyes: Denies blurry vision or diplopia ENT ENT ED: Denies rhinorrhea or sore throat Cardiovascular Cardiovascular: Reports orthopnea; Denies chest pain or palpitations Respiratory/Chest Respiratory/Chest: Reports dyspnea, dyspnea on exertion and orthopnea; Denies cough Gastrointestinal Gastrointestinal: Denies abdominal pain, nausea or vomiting Genitourinary Genitourinary ED: Denies dysuria or hematuria Musculoskeletal Musculoskeletal: Denies arthralgias or myalgias Integumentary Denies abscess or rash Neurologic Neurologic: Denies paresthesias or weakness Psychiatric Psychiatric: Denies anxiety or depression EXAM Physical Exam Const Vital Signs: 10/21/20 12:02 10/21/20 12:08 10/21/20 13:10 Temperature 97.7 F L Temperature Source Temporal Pulse Rate 70 Respiratory Rate 19 H Respiratory Effort Short of Breath Respiratory Depth Shallow Respiratory Pattern Tachypnea Blood Pressure 180/62 H Blood Pressure Mean 101 Pulse Ox 100 99 Oxygen Delivery Method Simple Mask Simple Mask Simple Mask Oxygen Flow Rate (L/min) 15 15 15 10/21/20 13:12 10/21/20 13:45 10/21/20 14:04 Temperature Temperature Source Pulse Rate 63 63 Respiratory Rate 20 H Respiratory Effort Respiratory Depth Respiratory Pattern Blood Pressure 167/66 H 178/66 H Blood Pressure Mean 99 Pulse Ox 95 91 Oxygen Delivery Method Nasal Cannula Nasal Cannula Oxygen Flow Rate (L/min) 5 4 10/21/20 14:08 10/21/20 14:15 Temperature Temperature Source Pulse Rate 66 63 Respiratory Rate 17 23 H Respiratory Effort Short of Breath Accessory Muscle Use Respiratory Depth Respiratory Pattern Tachypnea Blood Pressure 178/66 H Blood Pressure Mean 103 Pulse Ox 95 94 Oxygen Delivery Method Nasal Cannula Nasal Cannula Oxygen Flow Rate (L/min) 5 5 Positive obese General Appearance ED: NAD Nutritional Appearance: obese HEENT Reports moist mucous membranes atraumatic Eyes PERRL and EOMs intact bilaterally Neck no lymphadenopathy and supple Resp Resp Narrative: Appears dyspneic with mild accessory muscle use Auscultation: diminished lung sounds Cardio regular rate and regular rhythm GI non-tender Palpation: soft Extremity General Extremety ED: Yes edema; Negative for tenderness General Extremity: edema Neuro oriented x3 Sensorium / Orientation: alert Skin Lesions: no lesions Rashes: no rashes MDM MDM MDM Narrative Medical decision making narrative: Patient presenting with worsening leg swelling and shortness of breath. She has a history of CHF. She does appear to be somewhat confused as she is told 1 nurse that she wears 3 L of oxygen via nasal cannula and she told me she wears 4 L nasal cannula, and later told respiratory therapist that she wears 2 L of nasal cannula. Patient does have lower extremity edema which she states is worse. She had EKG performed on arrival which on my interpretation appears to be atrial fibrillation with ventricular rate of 60 bpm without signs of ST elevation or depression. This does not appear to be significantly changed from her EKG 12 October 2020. Chest x- ray appears to show worsening pulmonary edema on my interpretation. The radiologist did agree however he did state this may be pneumonia. Given that the patient does not have a leukocytosis, cough, fever I believe this is all due to heart failure. Hemoglobin is near baseline. Platelets are normal. Renal function appears to be near baseline as well at with a creatinine of 1.69. Her potassium is elevated at 5.6. She was given Lasix as well as Kayexalate 30 mg in the ED. Patient was weaned down to 5 L via nasal cannula which would still be above either of the baseline oxygen was via nasal cannula she gave. Her blood gas does show her PO2 is low at 63.9, her PCO2 is mildly elevated at 45.5 and pH is 7.414. Patient's BNP is 423.3. Patient did request a breathing treatment and afterwards was wheezing mildly. At this point she was given Solu- Medrol 125 mg. Patient was discussed with hospitalist and will be admitted for further treatment for CHF. Impression: 1. CHF exacerbation 2. COPD exacerbation 3. Hyperkalemia Lab Data Labs: Laboratory Results - last 24 hr 10/21/20 10/21/20 10/21/20 12:24 12:24 12:24 WBC 9.9 RBC 2.97 L Hgb 9.2 L Hct 31.3 L MCV 105.4 H MCH 31.0 MCHC 29.4 L RDW Std Deviation 57.1 H RDW Coeff of Deepali 15.0 H Plt Count 244 MPV 11.0 Immature Gran % (Auto) 0.700 Neut % (Auto) 74.2 H Lymph % (Auto) 14.1 L [place] % (Auto) 7.7 Eos % (Auto) 2.9 Baso % (Auto) 0.4 Absolute Neuts (auto) 7.4 Absolute Lymphs (auto) 1.40 Nucleated RBC % 0.6 Sodium 144 Potassium 5.6 H Chloride 109 H Carbon Dioxide 33.0 H Anion Gap 2 L BUN 33 H Creatinine 1.69 H Estim Creat Clear Calc 19.60 Est GFR (MDRD) Af Amer 37 L Est GFR (MDRD) Non-Af 31 L BUN/Creatinine Ratio 19.5 Glucose 86 Calcium 9.2 Troponin I High Sens 39.7 B-Natriuretic Peptide 423.3 H ABG Data ABG results: ABG 10/21/20 13:35 Specimen Type ART Sample Site R Brach pH 7.41 Bicarbonate Actual 29.1 H Total CO2 31 Base Excess 5 H O2 Saturation 92 L ABG pCO2 45.5 H ABG pO2 64 L O2 Delivery Device Cannula Liter Flow 5.0 Radiography Diagnostic Testing: Radiology Impression Chest X-Ray 10/21/20 12:50 IMPRESSION: Cardiomegaly with increasing bilateral airspace disease which may represent worsening edema or pneumonia. at 1426 Reported and signed by: Heladio Alexis MD Electronically Signed: Heladio Alexis MD at 14:25 EDT Tel , Service support , Discharge Plan Triage Chief Complaint: Shortness of Breath ED Provider: Chidi Forbes Dx/Rx/DC Orders Prescriptions: No Action nystatin 100,000 unit/gram powder 1 applic TOPICAL BID RF: 0 amlodipine 10 mg tablet 10 mg PO DAILY RF: 0 atorvastatin 40 mg tablet 40 mg PO QHS RF: 0 bisacodyl 10 mg suppository 10 mg RC DAILY PRN PRN (Reason: Constipation) RF: 0 clonidine 0.1 mg/24 hr patch weekly 1 patch transdermal QWEEK RF: 0 isosorbide mononitrate 60 mg tablet extended release 24 hr 60 mg PO DAILY RF: 0 albuterol sulfate 90 mcg/actuation aerosol powdr breath activated 2 inh INHALATION Q2H PRN (Reason: Shortness Of Breath) RF: 0 insulin glargine 100 unit/mL (3 mL) insulin pen 60 unit subcut QHS RF: 0 insulin lispro 100 unit/mL insulin pen See Rx Instructions subcut TIDAC RF: 0 dulaglutide 1.5 mg/0.5 mL pen injector 1.5 mg SC QWEEK RF: 0 omeprazole 40 MG capsule,delayed release(DR/EC) 40 mg PO DAILY RF: 0 calcium carbonate-vitamin D3 1 EACH tablet 1 ea PO BID RF: 0 aspirin 81 MG tablet 81 mg PO DAILY@0800 RF: 0 metoprolol tartrate 25 MG tablet 25 mg PO BID RF: 0 apixaban 2.5 MG tablet 2.5 mg PO BID RF: 0 ipratropium bromide 12.9 GM HFA aerosol inhaler 2 puff IH Q4H PRN PRN (Reason: Sob &/Or Wheezing) RF: 0 docusate sodium 100 MG capsule 100 mg PO BID RF: 0 acetaminophen 325 MG tablet 650 mg PO Q4H PRN PRN (Reason: Mild Pain (scale 0-3)/T>100.7) RF: 0 guaifenesin 10 ML liquid 10 ml PO Q4H PRN PRN (Reason: Cough) RF: 0 potassium chloride 20 mEq tablet,ER particles/crystals 20 meq PO DAILY RF: 0 furosemide 20 mg tablet 20 mg PO DAILY RF: 0 furosemide 40 mg tablet 40 mg PO BREAKFAST RF: 0 Primary Care Provider: Eliot Loja
[2020-10-21 13:29] LABS: Absolute Neutrophil Count 7.4 X10^3/uL (2.0-7.7); Basophil# 0.04 X10^3/uL; Basophil% 0.4 % (0-1); Eosinophil# 0.29 X10^3/uL; Eosinophils% 2.9 % (0-5); Hematocrit 31.3 % (37-47); Hemoglobin 9.2 g/dL (12.0-15.0); Lymphocyte % 14.1 % (19-41); Mean Corp Hgb Conc 29.4 g/dL (32-36); Mean Corpuscular Volume 105.4 fL (81-99); Monocyte# 0.76 X10^3/uL; Monocyte% 7.7 % (0-10); NRBC Flagged by Analyzer 0.6 % (0-5); Neutrophil # 7.35 X10^3/uL (2.7-7.7); Neutrophil % 74.2 % (47-70); Platelet Count 244 K/mm3 (150-450); RBC Distribution Width SD 57.1 fl (35.1-43.9); Red Blood Count 2.97 M/mm3 (4.2-5.4); White Blood Count 9.9 K/mm3 (4.4-11.0)
[2020-10-21 13:40] LABS: Anion Gap 2 (5-15); BUN 33 mg/dL (7-18); BUN/Creat Ratio 19.5 RATIO (10-20); Calcium,Total 9.2 mg/dL (8.5-10.1); Chloride 109 mmol/L (98-107); Creatinine, Serum 1.69 mg/dL (0.55-1.02); EST Glomerular Filtration Rate 31 mL/min (>60); Est Glom Filt Rate - Afr Amer 37 mL/min (>60); Glucose 86 mg/dL (74-106); Potassium 5.6 mmol/L (3.5-5.1); Sodium Level 144 mmol/L (136-145); Troponin-I HS 39.7 pg/mL (3.0-53.7)
[2020-10-21 13:41] LABS: Base Excess 5 mmol/L (-2 to +2); Bicarbonate 29.1 mmol/L (22-26); Blood Gas Specimen Type ART; O2 Delivery Device Cannula; PO2 64 mmHG (75-100); SITE R Brach; SO2 92 % (95-99); Total Carbon Dioxide 31 mmol/L; pCO2 45.5 mmHg (35-45); pH 7.41 (7.35-7.45)
[2020-10-21] MEDS: Furosemide 40 MG/4 ML Vial IV ×2 (14:04→17:47)
[2020-10-21] MEDS: Nitroglycerin Oint 1 INCH PACKET TRANSDERM. (14:04)
[2020-10-21 14:06] LABS: BNP,B-Type NATRIURETIC PEPTIDE 423.3 pg/mL (0-100)
[2020-10-21] MEDS: Ipratropium/Albuterol Sulfate 3 ML AMPUL.NEB INHALATION ×3 (14:14→22:40)
[2020-10-21] MEDS: Albuterol 2.5 MG/3 ML VIAL.NEB. INHALATION (14:15)
--- NOTE | 2020-10-21 14:45 | HP.PCM.HOS_ITS ---
HPI - General General Date of Admission: 10/21/20 HPI Narrative SABRINA GONZALEZ, is a 85 F with a PMH as outlined who was admitted via the ED on 10/21/2020 with a complaint of who presents with a complaint of shortness of breath. She was recently admitted here for similar shortness of breath and managed for acute on chronic heart failure. SHe was weaned down to 5L of nasal canula on arrival in [facility] ED, and was wheezing as well. She denied any fever, chills, cough, chest pain, palpitations, dizziness, and had lower extremity edema. Vitals in the ED showed ND of 63, with RR of 23 and she ws saturating at 94%; BP was 178/66. Labs showed sodium of 144, with potassium of 5.6, bicarb of 33 and Cr of 1.69. CBC showed Hb of 9.2, with wbc of 9.9 and platelets of 244. CXR showed doffise bilateral airpsace disease which may represent worsening edema or pneumonia. EKG showed no acute ST changes. She is being admitted to be managed for acute on chronic exacerbation of combined heart failure and acute COPD exacerbation. [facility] Medical History Acute on chronic combined systolic and diastolic heart failure Anemia Atherosclerosis of coronary artery bypass graft without angina pectoris Atherosclerosis of coronary artery of [place] heart without angina pectoris Chronic hypoxemic respiratory failure Chronic renal failure, stage 3 (moderate) Colon polyp Gastric ulcer Ischemic cardiomyopathy Non-rheumatic tricuspid valve insufficiency Nonrheumatic mitral (valve) insufficiency NSTEMI (non-ST elevated myocardial infarction) (10/20/17) Obesity Old anterior wall myocardial infarction ANA (obstructive sleep apnea) Paroxysmal atrial fibrillation Secondary pulmonary arterial hypertension Type 2 diabetes mellitus Home Medications calcium carbonate-vitamin D3 1 ea PO BID 04/19/17 [History Last Taken 09/22/17 12:00] omeprazole 40 mg PO DAILY 04/19/17 [History Last Taken 09/22/17 06:30] apixaban 2.5 mg PO BID tab 10/27/17 [Rx Last Taken Unknown] aspirin 81 mg PO DAILY@0800 tab 10/27/17 [Rx Last Taken Unknown] metoprolol tartrate 25 mg PO BID tab 10/27/17 [Rx Last Taken Unknown] nystatin 100,000 unit/gram topical powder 1 applic TOPICAL BID 02/24/18 [History Last Taken Unknown] amlodipine 10 mg tablet 10 mg PO DAILY 09/08/18 [History Last Taken Unknown] atorvastatin 40 mg tablet 40 mg PO QHS 02/25/19 [History Last Taken Unknown] bisacodyl 10 mg rectal suppository 10 mg RC DAILY PRN PRN 02/25/19 [History Last Taken Unknown] clonidine 0.1 mg/24 hr weekly transdermal patch 1 patch TRANSDERMAL QWEEK 02/25/19 [History Last Taken Unknown] isosorbide mononitrate 60 mg tablet,extended release 24 hr 60 mg PO DAILY 10/05/19 [History Last Taken Unknown] acetaminophen 650 mg PO Q4H PRN PRN 10/11/19 [History Last Taken Unknown] docusate sodium 100 mg PO BID 10/11/19 [History Last Taken Unknown] guaifenesin 10 ml PO Q4H PRN PRN 10/11/19 [History Last Taken Unknown] ipratropium bromide 2 puff IH Q4H PRN PRN 10/11/19 [History Last Taken Unknown] albuterol sulfate 90 mcg/actuation breath activated powder inhaler 2 inh INHALATION Q2H PRN each 08/01/20 [History Last Taken Unknown] dulaglutide 1.5 mg/0.5 mL subcutaneous pen injector 1.5 mg SC QWEEK ml 08/01/20 [History Last Taken Unknown] insulin glargine 100 unit/mL (3 mL) subcutaneous pen 60 unit SUBCUT QHS ml 08/01/20 [History Last Taken Unknown] insulin lispro 100 unit/mL subcutaneous pen See Rx Instructions SUBCUT TIDAC insuln.pen 08/01/20 [History Last Taken Unknown] furosemide 20 mg PO DAILY 10/21/20 [History Last Taken Unknown] furosemide 40 mg PO BREAKFAST 10/21/20 [History Last Taken Unknown] potassium chloride 20 meq PO DAILY 10/21/20 [History Last Taken Unknown] Allergy/AdvReac Type Severity Reaction Status Date / Time LEANDER Inhibitors Allergy Unknown Verified 10/21/20 12:05 Family History Other No pertinent family history Surgical History H/O coronary artery bypass surgery History of appendectomy History of left heart catheterization (10/24/17) History of tonsillectomy and adenoidectomy Hx of cholecystectomy Social History Smoking Status: Never smoker alcohol intake: never substance use type: does not use ROS Constitutional Constitutional: Reports malaise; Denies anorexia, change in weight, chills, fatigue, fever(s) or weakness Eyes Eyes: Denies double vision Cardiovascular Cardiovascular: Reports dyspnea on exertion, edema, orthopnea and paroxysmal nocturnal dyspnea; Denies chest pain, lightheadedness, palpitations or syncope Respiratory/Chest Respiratory/Chest: Reports dyspnea, shortness of breath at rest, shortness of breath with exertion and wheezing; Denies cough, excessive phlegm production, hemoptysis or productive cough Gastrointestinal Gastrointestinal: Denies abdominal pain, constipation or diarrhea Genitourinary Genitourinary: Denies burning urination or dysuria Musculoskeletal Musculoskeletal: Denies arthralgias, joint stiffness or joint swelling Psychiatric Psychiatric: Denies anxiety or depression Endocrine Endocrinology: Denies change in body appearance Hematologic/Lymphatic Hematologic/Lymphatic: Denies anemia Allergic/Immunologic Allergic/Immunologic: Denies asthma Vital Signs Vital Signs Vital Signs: 10/21/20 12:02 10/21/20 12:08 10/21/20 13:10 Temperature 97.7 F L Temperature Source Temporal Pulse Rate 70 Respiratory Rate 19 H Respiratory Effort Short of Breath Respiratory Depth Shallow Respiratory Pattern Tachypnea Blood Pressure 180/62 H Blood Pressure Mean 101 Pulse Ox 100 99 Oxygen Delivery Method Simple Mask Simple Mask Simple Mask Oxygen Flow Rate (L/min) 15 15 15 10/21/20 13:12 10/21/20 13:45 10/21/20 14:04 Temperature Temperature Source Pulse Rate 63 63 Respiratory Rate 20 H Respiratory Effort Respiratory Depth Respiratory Pattern Blood Pressure 167/66 H 178/66 H Blood Pressure Mean 99 Pulse Ox 95 91 Oxygen Delivery Method Nasal Cannula Nasal Cannula Oxygen Flow Rate (L/min) 5 4 10/21/20 14:08 10/21/20 14:15 Temperature Temperature Source Pulse Rate 66 63 Respiratory Rate 17 23 H Respiratory Effort Short of Breath Accessory Muscle Use Respiratory Depth Respiratory Pattern Tachypnea Blood Pressure 178/66 H Blood Pressure Mean 103 Pulse Ox 95 94 Oxygen Delivery Method Nasal Cannula Nasal Cannula Oxygen Flow Rate (L/min) 5 5 Weight Weight: 232 lb 12.93 oz Body Mass Index (BMI) 42.5 Physical Exam Const alert and no apparent distress General Appearance: cooperative Orientation / Consciousness: confused HEENT normocephalic, head/scalp atraumatic and hearing grossly normal bilaterally Eyes PERRL, EOMs intact bilaterally and conjunctivae normal Neck no lymphadenopathy Resp Resp Narrative: diminished breath sounds bibasally, wheezing in all lung johnson. on 5L of oxygen by nasal canula Cardio regular rate, regular rhythm, S1 normal heart sound, S2 normal heart sound and no murmurs GI normal to inspection, nondistended, normoactive bowel sounds, soft to palpation, non-tender and non-distended Extremity normal to inspection Extremity Narrative: bilateral 2+ pitting pedal edema Peripheral Pulses: Yes pulses 2+ throughout Skin no rashes or lesions noted Neuro Sensorium / Orientation: awake and alert Psych affect normal Results Lab / Micro Data Result Diagrams: 10/21/20 12:24 10/21/20 12:24 Labs: Laboratory Results - last 24 hr 10/21/20 10/21/20 10/21/20 12:24 12:24 12:24 WBC 9.9 RBC 2.97 L Hgb 9.2 L Hct 31.3 L MCV 105.4 H MCH 31.0 MCHC 29.4 L RDW Std Deviation 57.1 H RDW Coeff of Deepali 15.0 H Plt Count 244 MPV 11.0 Immature Gran % (Auto) 0.700 Neut % (Auto) 74.2 H Lymph % (Auto) 14.1 L [place] % (Auto) 7.7 Eos % (Auto) 2.9 Baso % (Auto) 0.4 Absolute Neuts (auto) 7.4 Absolute Lymphs (auto) 1.40 Nucleated RBC % 0.6 Sodium 144 Potassium 5.6 H Chloride 109 H Carbon Dioxide 33.0 H Anion Gap 2 L BUN 33 H Creatinine 1.69 H Estim Creat Clear Calc 19.60 Est GFR (MDRD) Af Amer 37 L Est GFR (MDRD) Non-Af 31 L BUN/Creatinine Ratio 19.5 Glucose 86 Calcium 9.2 Troponin I High Sens 39.7 B-Natriuretic Peptide 423.3 H ABG Data ABG results: ABG 10/21/20 13:35 Specimen Type ART Sample Site R Brach pH 7.41 Bicarbonate Actual 29.1 H Total CO2 31 Base Excess 5 H O2 Saturation 92 L ABG pCO2 45.5 H ABG pO2 64 L O2 Delivery Device Cannula Liter Flow 5.0 Radiology Impression Chest X-Ray 10/21/20 12:50 IMPRESSION: Cardiomegaly with increasing bilateral airspace disease which may represent worsening edema or pneumonia. at 1426 Reported and signed by: Heladio Alexis MD Electronically Signed: Heladio Alexis MD at 14:25 EDT Tel , Service support , Assessment & Plan Assessment/Plan (1) Acute on chronic diastolic (congestive) heart failure: PLAN: #Acute on chronic HFpEF * admit to PCU * BNP is elevated int he 400s, though patient appears to have chronically elevated BNP. * diurese with IV lasix 40mg bid * monitor intake and output chart * fluid restriction to 1500cc daily * will initiate palliative care consult as I think patient will benefit from palliative care evaluation * #Acute on Chronic hypoxic respiratory failure due to heart failure and COPD exacerbation * was requiring oxygen by nonrebreather mask on admission. * patient is unable to tell if she has been taking her lasix or not. * weaned down to 5L of oxygen now * titrate oxygen to maintain sats >90% * breathing treatment with bronchodilators * IV solumedrol 40mg q8 * #Acute on chronic COPD exacerbation: as above. #CAD s/p CABG * On aspirin, high intensity statin and Imdur as well as metoprolol * * #ANA: on CPAP qhs #Hypertension; on amlodipine and clonidine as well as metoprolol. #Type 2 diabetes mellitus: On Lantus insulin 60 units nightly and sliding scale. Accu-Cheks AC at bedtime. DVT prophylaxis: On Eliquis CODE STATUS: Full code Counseled patient about differences between full code, DNR CCA and DNR CCA. Patient tells me that she wants to be full code would want to be intubated and have CPR if needed. She also has paperwork from her SNF confirming her full code status. Total [id number] time 16 minutes. Charges/Coding Visit Charges Inpatient E&M: 99952 Init Hosp L3 Procedures Hospitalists Procedures: 74551 Advncd Care Plan 30 Min
[2020-10-21] MEDS: Sodium Polystyrene Sulfonate 15 GM/60 ML UDC 30 GM PO (15:06)
[2020-10-21] MEDS: MethylPREDNISolone 125 MG/2 ML Vial IV (15:06)
[2020-10-21 16:15] LABS: Bedside Glucose 100 mg/dL (70-110)
[2020-10-21 17:03] LABS: Troponin-I HS 41.5 pg/mL (3.0-53.7)
[2020-10-21] MEDS: Insulin Lispro 100 UNIT/ML INSULN.PEN 14 UNIT SC (17:48)
[2020-10-21] MEDS: Acetaminophen 325 MG Tablet 650 MG PO (20:50)
[2020-10-21] MEDS: LORazepam 1 MG Tablet PO (20:51)
[2020-10-21] MEDS: Nystatin Powder 15gm Bottle 1 APPLIC TOPICAL (20:57)
[2020-10-21] MEDS: Atorvastatin Calcium 40 MG Tablet PO (21:00)
[2020-10-21] MEDS: Docusate Sodium 100 MG Capsule PO (21:00)
[2020-10-21] MEDS: APIXABAN 2.5 MG TABLET PO (21:01)
[2020-10-21] MEDS: Metoprolol Tartrate 25 MG Tablet PO (21:01)
[2020-10-21] MEDS: 0.9% Saline Lock 10 ML Syringe IV (21:01)
[2020-10-21 22:20] LABS: Bedside Glucose 148 mg/dL (70-110)
[2020-10-21 23:13] LABS: Troponin-I HS 36.4 pg/mL (3.0-53.7)
[2020-10-22] VITALS (18 sets, daily range): BP systolic 143–175; BP diastolic 52–69; PULSE 57–79; RESP 16–30; TEMP 36.7–37.2; O2SAT 94–97
[2020-10-22] MEDS: Ipratropium/Albuterol Sulfate 3 ML AMPUL.NEB INHALATION ×5 (02:24→22:45)
[2020-10-22 05:38] LABS: Absolute Lymphocyte Count 0.62 X10^3/uL (0.83-4.51); Absolute Neutrophil Count 8.3 X10^3/uL (2.0-7.7); Basophil# 0.01 X10^3/uL; Basophil% 0.1 % (0-1); Hematocrit 29.6 % (37-47); Hemoglobin 8.7 g/dL (12.0-15.0); Lymphocyte # 0.62 X10^3/ul (0.83-4.51); Lymphocyte % 6.7 % (19-41); Mean Corp Hgb Conc 29.4 g/dL (32-36); Mean Corpuscular Hgb 30.7 pg (27.0-32.0); Mean Corpuscular Volume 104.6 fL (81-99); Mean Platelet Vol. 11.2 fl (6.2-12.0); Monocyte# 0.12 X10^3/uL; Monocyte% 1.3 % (0-10); NRBC Flagged by Analyzer 0.4 % (0-5); Neutrophil # 8.33 X10^3/uL (2.7-7.7); Neutrophil % 90.6 % (47-70); POSITIVE MORPHOLOGY YES; Platelet Count 245 K/mm3 (150-450); RBC Distribution Width CV 15.1 % (11.6-14.6); RBC Distribution Width SD 55.9 fl (35.1-43.9); Red Blood Count 2.83 M/mm3 (4.2-5.4); White Blood Count 9.2 K/mm3 (4.4-11.0)
[2020-10-22] MEDS: 0.9% Saline Lock 10 ML Syringe IV ×3 (05:46→21:34)
[2020-10-22 05:51] LABS: Differential Indicated SCAN CRITERIA MET
[2020-10-22 05:59] LABS: Anion Gap 7 (5-15); BUN 41 mg/dL (7-18); BUN/Creat Ratio 21.2 RATIO (10-20); Calcium,Total 8.3 mg/dL (8.5-10.1); Chloride 106 mmol/L (98-107); Creatinine, Serum 1.93 mg/dL (0.55-1.02); EST Glomerular Filtration Rate 26 mL/min (>60); Est Glom Filt Rate - Afr Amer 32 mL/min (>60); Estimated Creatinine Clearance 15.59 ml/min; Glucose 265 mg/dL (74-106); Potassium 5.2 mmol/L (3.5-5.1); Sodium Level 142 mmol/L (136-145)
[2020-10-22 06:19] LABS: Anisocytosis 1+; Differential Comment SCANNED; Macrocytosis 1+; Polychromasia RARE
[2020-10-22] MEDS: Glycerin/Hypromellose/PEG400 15 ml Bottle 1 DRP EACH EYE (06:23)
[2020-10-22] MEDS: LORazepam 1 MG Tablet PO ×2 (06:52→21:34)
--- NOTE | 2020-10-22 08:16 | RAD_ITS ---
STUDY: X-RAY CHEST REASON FOR EXAM: Female, 85 years old. Dyspnea TECHNIQUE: Single AP portable view of the chest. COMPARISON: 10/21/2020 FINDINGS: Status post median sternotomy. The patient is rotated to the left. Poor inspiration with some bibasilar atelectasis. There is no demonstrated pleural abnormality. There is moderate cardiac enlargement. Normal mediastinum and damian. Normal visualized pulmonary arteries. Normal visualized aortic arch and descending thoracic aorta. Normal visualized thoracic spine. Normal visualized ribs, clavicles, and shoulders. There is no demonstrated abnormality of the visualized soft tissue structures of the upper abdomen. RAD/Chest 1 View (Portable) IMPRESSION: No change from 10/21/2020. Electronically Signed: Butch Pfeiffer MD at 10:11 EDT Tel , Service support ,
[2020-10-22] MEDS: Insulin Lispro 100 UNIT/ML INSULN.PEN 10 UNIT SC (08:45)
[2020-10-22] MEDS: Insulin Lispro 100 UNIT/ML INSULN.PEN SC ×4 (08:46→21:38)
[2020-10-22] MEDS: Aspirin E.C. 81 MG Tablet PO (08:47)
[2020-10-22] MEDS: APIXABAN 2.5 MG TABLET PO ×2 (08:50→21:30)
[2020-10-22] MEDS: Docusate Sodium 100 MG Capsule PO ×2 (08:50→21:30)
[2020-10-22] MEDS: Metoprolol Tartrate 25 MG Tablet PO ×2 (08:51→21:34)
[2020-10-22] MEDS: Isosorbide Mononitrate 60 MG Tablet PO (08:51)
[2020-10-22] MEDS: Nystatin Powder 15gm Bottle 1 APPLIC TOPICAL ×2 (08:52→21:35)
[2020-10-22] MEDS: amLODIPine 10 MG Tablet PO (08:54)
[2020-10-22] MEDS: Pantoprazole Sodium 40 MG Tablet PO (08:55)
[2020-10-22 09:06] LABS: Bedside Glucose 230 mg/dL (70-110)
[2020-10-22] MEDS: Furosemide 40 MG/4 ML Vial IV (11:15)
[2020-10-22] MEDS: Insulin Lispro 100 UNIT/ML INSULN.PEN 14 UNIT SC ×2 (11:16→17:21)
[2020-10-22 11:55] LABS: Bedside Glucose 206 mg/dL (70-110)
--- NOTE | 2020-10-22 15:26 | PCM.PN.HOSP ---
Subjective Subjective Patient states her breathing is better today. Per discussion with nursing she had significant anxiety this morning and was dosed with a one-time dose of Ativan with excellent results. It appears that some of her respiratory issues may be exacerbated by her anxiety. Objective Data Objective Data Vital Signs: Vital Signs Temp Pulse Resp BP Pulse Ox 98.4 F 74 20 H 175/60 H 94 10/22/20 11:00 10/22/20 11:30 10/22/20 11:23 10/22/20 11:00 10/22/20 11:00 Oxygen Flow Rate (L/min) 4 Oxygen Delivery Method Nasal Cannula Weight: 103.8 kg Body Mass Index (BMI) 44.6 Intake & Output: Intake and Output for Last 24 Hours 10/20/20 10/21/20 10/22/20 23:59 23:59 23:59 Intake Total 120 / 120 780 / 780 Output Total 950 / 950 375 / 375 Balance -830 / -830 405 / 405 Lab / Micro Data Result Diagrams: 10/22/20 05:15 10/22/20 05:15 Labs: Laboratory Results - last 24 hr 10/21/20 10/21/20 10/21/20 16:10 16:12 18:33 WBC RBC Hgb Hct MCV MCH MCHC RDW Std Deviation RDW Coeff of Deepali Plt Count MPV Immature Gran % (Auto) Neut % (Auto) Lymph % (Auto) [place] % (Auto) Eos % (Auto) Baso % (Auto) Absolute Neuts (auto) Absolute Lymphs (auto) Nucleated RBC % Differential Comment Polychromasia Anisocytosis Macrocytosis Sodium Potassium Chloride Carbon Dioxide Anion Gap BUN Creatinine Estim Creat Clear Calc Est GFR (MDRD) Af Amer Est GFR (MDRD) Non-Af BUN/Creatinine Ratio Glucose Calcium Troponin I High Sens 41.5 40.0 POC Glucose 100 10/21/20 10/21/20 10/22/20 20:49 22:30 05:15 WBC 9.2 RBC 2.83 L Hgb 8.7 L Hct 29.6 L MCV 104.6 H MCH 30.7 MCHC 29.4 L RDW Std Deviation 55.9 H RDW Coeff of Deepali 15.1 H Plt Count 245 MPV 11.2 Immature Gran % (Auto) 1.300 H Neut % (Auto) 90.6 H Lymph % (Auto) 6.7 L [place] % (Auto) 1.3 Eos % (Auto) 0.0 Baso % (Auto) 0.1 Absolute Neuts (auto) 8.3 H Absolute Lymphs (auto) 0.62 L Nucleated RBC % 0.4 Differential Comment SCANNED Polychromasia RARE Anisocytosis 1+ Macrocytosis 1+ Sodium Potassium Chloride Carbon Dioxide Anion Gap BUN Creatinine Estim Creat Clear Calc Est GFR (MDRD) Af Amer Est GFR (MDRD) Non-Af BUN/Creatinine Ratio Glucose Calcium Troponin I High Sens 36.4 POC Glucose 148 H 10/22/20 10/22/20 10/22/20 05:15 08:42 11:10 WBC RBC Hgb Hct MCV MCH MCHC RDW Std Deviation RDW Coeff of Deepali Plt Count MPV Immature Gran % (Auto) Neut % (Auto) Lymph % (Auto) [place] % (Auto) Eos % (Auto) Baso % (Auto) Absolute Neuts (auto) Absolute Lymphs (auto) Nucleated RBC % Differential Comment Polychromasia Anisocytosis Macrocytosis Sodium 142 Potassium 5.2 H Chloride 106 Carbon Dioxide 29.0 Anion Gap 7 BUN 41 H Creatinine 1.93 H Estim Creat Clear Calc 15.59 Est GFR (MDRD) Af Amer 32 L Est GFR (MDRD) Non-Af 26 L BUN/Creatinine Ratio 21.2 H Glucose 265 H Calcium 8.3 L Troponin I High Sens POC Glucose 230 H 206 H Radiography Diagnostic Testing: Radiology Impression Chest X-Ray 10/22/20 08:16 IMPRESSION: No change from 10/21/2020. Electronically Signed: Butch Pfeiffer MD at 10:11 EDT Tel , Service support , Physical Exam Const alert, oriented x3 and no apparent distress Constitutional Narrative: Morbidly obese white female sitting up in a chair watching television, on supplemental oxygen but no signs of respiratory distress, patient appears comfortable Exam Limitations: no limitations HEENT head/scalp atraumatic and moist oral mucous membranes HEENT Narrative: Mallampati 3, no thrush Head and Scalp: normocephalic Mouth: oral and palatal mucosa normal Eyes PERRL, EOMs intact bilaterally and conjunctivae normal Neck no lymphadenopathy, supple and no JVD Neck Narrative: Short thick neck Resp normal respiratory effort, no retractions and no use of accessory muscles Resp Narrative: Diffusely diminished but no adventitious sounds Auscultation: Negative for crackles, rales, rhonchi or wheezes Cardio regular rate, regular rhythm, S1 normal heart sound, S2 normal heart sound, no murmurs, no rub, no gallops, no clicks and no JVD GI normal to inspection, nondistended, normoactive bowel sounds, soft to palpation, non-tender and non-distended GI Narrative: Morbidly obese Extremity normal to inspection and full ROM Extremity Narrative: Trace to 1+ bilateral lower extremity edema General Extremity: edema Peripheral Pulses: Yes pulses 2+ throughout Skin no wounds, skin turgor normal, no jaundice, no petechiae and no mottling Skin Narrative: Multiple seborrheic keratoses Neuro oriented x3, CN's II-XII intact bilaterally, moves all extremities and no focal motor deficits Sensorium / Orientation: awake, alert, oriented to person, oriented to place and oriented to time Psych affect normal Assessment & Plan Assessment/Plan (1) Acute on chronic diastolic (congestive) heart failure: (2) Acute on chronic respiratory failure with hypoxemia: (3) COPD exacerbation: PLAN: Acute on chronic hypoxic respiratory failure secondary to HFpEF/COPD -Last echo was on 10/11/2019 and showed an EF of 50% with moderate LVH and stage II diastolic dysfunction -Repeat echo with recurrent hospitalizations -Patient has been diuresed with Lasix 40 mg IV twice daily -Serum creatinine is starting to climb -We will hold Lasix and monitor clinically -Patient is O2 dependent at baseline and on 2 L nasal cannula -She was on continuous BiPAP and weaned to Ventimask at 8 L this morning and since has been weaned to 4 L nasal cannula with oxygen saturation 94% -Patient does not appear to be chronically hypercapnic at baseline and would recommend keeping oxygen saturations at 92% and greater -Continue fluid restriction -BNP is elevated however its significantly lower than it has been in the last 2 years -Continue methylprednisolone for now and if maintained stability in the next 24 hours weaned to oral prednisone -Continue pulmonary toilet -Per discussion with nursing patient seems to have significant anxiety and this is contributing markedly into a respiratory distress\ -As needed Ativan 1 mg every 8 hours ordered to assist with anxiety -Palliative care has been consulted given her recurrent admissions for the same diagnosis LANDRY on CKD stage IIIb -Serum creatinine is up to 1.9 today -Baseline serum creatinine appears to be 1.5-1.8 -Hold Lasix and reevaluate serum creatinine in the next 24 hours -May be able to restart oral Lasix soon Hyperkalemia -Potassium has trended down -Repeat in a.m. -Could worsen with worsening creatinine so monitor closely -Patient is currently not on potassium supplementation CAD/HTN/HPL/PAF -Blood pressures are markedly elevated likely contributing to her heart failure -Add hydralazine 50 mg 4 times daily--> patient has LEANDER inhibitor allergy -Continue aspirin -Continue amlodipine 10 mg daily -Continue atorvastatin 40 mg nightly -Continue clonidine patch 0.1 mcg per patch weekly -Hold home Lasix dose for now -Continue isosorbide mononitrate 60 mg daily -Continue metoprolol 25 mg twice daily -Patient in normal sinus rhythm -Continue Eliquis GERD -Continue PPI DM-2 -Blood sugars elevated with steroids -We will continue to monitor as her blood sugar should improve with weaning of steroids -No changes in current regimen -Continue Accu-Cheks -Continue carb controlled cardiac diet ANA -Continue CPAP nightly with 13 mmHg and 2 L nasal cannula bleed Morbid obesity -Recommend weight loss -Contributes overall difficulty with treatment and prognosis DVT prophylaxis -Continue apixaban CODE STATUS -Full code Charges/Coding Visit Charges Inpatient E&M: 62850 Subs Hosp L3
--- NOTE | 2020-10-22 15:35 | ECHOD_ITS ---
Reason For Study: CHF Procedure This was a 2D Doppler, Color Flow transthoracic echocardiogram. The study was technically difficult. Exam performed portable in patient room. Left Ventricle Normal LV size. The estimated ejection fraction is 55 %. Mild segmental systolic dysfunction (see wall motion). Stage 3 diastolic dysfunction. Lateral [place] : Hypokinetic. Septal [place] : Akinetic. [place] : Akinetic. The rest of the wall segments are normal. There are regional wall motion abnormalities as specified. Atria The left atrium is moderately enlarged. The right atrium is mildly enlarged. Mitral Valve There is mild to moderate mitral annular calcification. Mild (1+) mitral valve insufficiency. Tricuspid Valve Normal tricuspid valve. Moderate (2+) tricuspid valve insufficiency. Pulmonary artery systolic pressure is 70 mmHg. Severe pulmonary hypertension. Aortic Valve Trisinus/trileaflet aortic valve. Mild focal aortic valve calcification. Trivial aortic valve insufficiency. Pulmonic Valve Normal pulmonic valve. Great Vessels Calcified aortic root. Mildly dilated aortic root. The pulmonary artery is normal size. Normal inferior vena cava. Pericardium/Pleural No pericardial effusion. Medication Defnity deferred d/t elevated PAP. MMode/2D Measurements & Calculations LVIDd: 6.2 cm IVSd: 1.5 cm Ao root diam: 3.8 cm LVIDs: 4.4 cm LVPWd: 1.4 cm RVDd: 4.3 cm FS: 29.4 % LAV(MOD-bp): 109.6 ml LA A4 area: 30.5 cm2 LA dimension(2D): 5.9 cm LAV(MOD-bp) Indexed: 55.7 ml/m2 LAV(MOD-sp2): 95.6 ml LAV(MOD-sp4): 117.1 ml RA A4 area: 22.3 cm2 Time Measurements MV dec time: 0.17 sec Doppler Measurements & Calculations MV E max galileo: 142.3 cm/sec Lat Peak E' Galileo: 6.5 cm/sec Med Peak E' Galileo: 5.2 cm/sec MV A max galileo: 57.6 cm/sec E/E' lat: 22.0 E/E' med: 27.2 MV E/A: 2.5 Ao V2 max: 147.4 cm/sec AI max galileo: 383.1 cm/sec LV V1 max: 88.4 cm/sec Ao max P.7 mmHg AI max P.8 mmHg LV V1 max P.1 mmHg AI dec slope: 315.5 cm/sec2 AI P1/2t: 355.7 msec MR max galileo: 566.2 cm/sec PA V2 max: 151.0 cm/sec PI end-d galileo: 151.6 cm/sec MR max P.3 mmHg MR mean galileo: 426.5 cm/sec MR mean P.9 mmHg MR VTI: 160.3 cm TR max galileo: 404.1 cm/sec TR max P.3 mmHg ECHO/Echo Complete Interpretation Summary Normal LV size. The estimated ejection fraction is 55 %. Mild segmental systolic dysfunction (see wall motion). Stage 3 diastolic dysfunction. There are regional wall motion abnormalities as specified. Pulmonary artery systolic pressure is 70 mmHg. Severe pulmonary hypertension. Ordering Physician: Tiffanie Solomon Referring Physician: JAYCE HILLS Performed By: Francesca Jimenez, JOHNNY, RVT
[2020-10-22 16:41] LABS: Bedside Glucose 174 mg/dL (70-110)
[2020-10-22] MEDS: hydrALAZINE 50 MG Tablet PO ×2 (17:27→21:34)
[2020-10-22] MEDS: Acetaminophen 325 MG Tablet 650 MG PO (21:30)
[2020-10-22] MEDS: Atorvastatin Calcium 40 MG Tablet PO (21:30)
[2020-10-22 22:25] LABS: Bedside Glucose 218 mg/dL (70-110)
[2020-10-23] VITALS (16 sets, daily range): BP systolic 133–169; BP diastolic 49–70; PULSE 60–75; RESP 16–22; TEMP 36.5–36.8; O2SAT 92–98
[2020-10-23] MEDS: 0.9% Saline Lock 10 ML Syringe IV ×2 (05:18→14:24)
[2020-10-23 06:38] LABS: Absolute Lymphocyte Count 0.75 X10^3/uL (0.83-4.51); Absolute Neutrophil Count 10.8 X10^3/uL (2.0-7.7); Basophil# 0.01 X10^3/uL; Basophil% 0.1 % (0-1); Hematocrit 29.2 % (37-47); Hemoglobin 8.5 g/dL (12.0-15.0); Lymphocyte # 0.75 X10^3/ul (0.83-4.51); Lymphocyte % 6.1 % (19-41); Mean Corp Hgb Conc 29.1 g/dL (32-36); Mean Corpuscular Hgb 30.7 pg (27.0-32.0); Mean Corpuscular Volume 105.4 fL (81-99); Mean Platelet Vol. 11.1 fl (6.2-12.0); Monocyte# 0.48 X10^3/uL; Monocyte% 3.9 % (0-10); NRBC Flagged by Analyzer 0.5 % (0-5); Neutrophil # 10.84 X10^3/uL (2.7-7.7); Neutrophil % 88.9 % (47-70); Platelet Count 253 K/mm3 (150-450); RBC Distribution Width CV 15.2 % (11.6-14.6); RBC Distribution Width SD 57.6 fl (35.1-43.9); Red Blood Count 2.77 M/mm3 (4.2-5.4); White Blood Count 12.2 K/mm3 (4.4-11.0)
[2020-10-23] MEDS: Ipratropium/Albuterol Sulfate 3 ML AMPUL.NEB INHALATION ×3 (07:43→15:47)
[2020-10-23 08:28] LABS: Anion Gap 6 (5-15); BUN 63 mg/dL (7-18); Calcium,Total 8.5 mg/dL (8.5-10.1); Chloride 105 mmol/L (98-107); Creatinine, Serum 2.25 mg/dL (0.55-1.02); EST Glomerular Filtration Rate 22 mL/min (>60); Est Glom Filt Rate - Afr Amer 27 mL/min (>60); Estimated Creatinine Clearance 13.37 ml/min; Glucose 245 mg/dL (74-106); Sodium Level 140 mmol/L (136-145)
[2020-10-23] MEDS: Insulin Lispro 100 UNIT/ML INSULN.PEN SC ×2 (08:41→11:24)
[2020-10-23] MEDS: Aspirin E.C. 81 MG Tablet PO (08:42)
[2020-10-23] MEDS: hydrALAZINE 50 MG Tablet PO ×2 (08:42→14:24)
[2020-10-23] MEDS: Insulin Lispro 100 UNIT/ML INSULN.PEN 10 UNIT SC (08:42)
[2020-10-23] MEDS: Isosorbide Mononitrate 60 MG Tablet PO (08:43)
[2020-10-23] MEDS: Docusate Sodium 100 MG Capsule PO (08:43)
[2020-10-23] MEDS: APIXABAN 2.5 MG TABLET PO (08:43)
[2020-10-23] MEDS: cloNIDine HCl 0.1 MG Patch TD (08:43)
[2020-10-23] MEDS: Pantoprazole Sodium 40 MG Tablet PO (08:44)
[2020-10-23 08:50] LABS: Bedside Glucose 241 mg/dL (70-110)
--- NOTE | 2020-10-23 10:18 | CASEMGMT ---
Patient is a terminal [facility] resident from [facility]. [facility] faxed updates to [facility]. Nikki Zarate [employer]
--- NOTE | 2020-10-23 10:39 | CASEMGMT ---
Readmission chart review: Pt was admitted 10/12-10/16/20 for Acute on Chronic HF from [facility] where she is a long-term resident. Pt was discharged back to [facility] with an increase in her lasix dose. Pt is on 3L nc chronically. Pt returned to [facility] ED on 10/21/20 for SOB again from [facility] and admitted for A on C HF. Pt also with hx of anxiety. Palliative c/s was made for pt on 10/21/20. CM to follow for any further discharge planning/needs. Ronel ROWLAND CM
--- NOTE | 2020-10-23 10:55 | DCINST_ITS ---
Discharge Instructions Diet Discharge Diet: No restrictions Activity Discharge Activity: Return to Normal Activity Follow Up Care Please Follow Up With: Primary care provider When: Within the next two weeks. Test Results: Test results from this visit will be discussed in further detail at your follow-up appointment, if applicable. Discharge Plan Admission Admit Date/Time: 10/21/20 15:07 Primary Reason for Your Visit: Shortness of breath Attending Provider: Abdullahi Olea Primary Care Provider: Eliot Loja Consulting Providers: Martha Rivero ; Abdullahi Casillas ; Concha Clarke ; Aura Shaikh ; Savi Jimenez ; Emelina Lai BEHAVIORAL PSYCHOLOGIST Instructions Patient Instructions: ED Chest Pain, Noncardiac Discharge Orders/Prescriptions Prescriptions: Continued amlodipine 10 mg tablet 10 mg PO DAILY RF: 0 atorvastatin 40 mg tablet 40 mg PO QHS RF: 0 bisacodyl 10 mg suppository 10 mg RC DAILY PRN PRN (Reason: Constipation) RF: 0 clonidine 0.1 mg/24 hr patch weekly 1 patch transdermal QWEEK RF: 0 albuterol sulfate 90 mcg/actuation aerosol powdr breath activated 2 inh INHALATION Q2H PRN (Reason: Shortness Of Breath) RF: 0 insulin glargine 100 unit/mL (3 mL) insulin pen 60 unit subcut QHS RF: 0 insulin lispro 100 unit/mL insulin pen See Rx Instructions subcut TIDAC RF: 0 dulaglutide 1.5 mg/0.5 mL pen injector 1.5 mg SC QWEEK RF: 0 calcium carbonate-vitamin D3 1 EACH tablet 1 ea PO BID RF: 0 aspirin 81 MG tablet 81 mg PO DAILY@0800 RF: 0 apixaban 2.5 MG tablet 2.5 mg PO BID RF: 0 docusate sodium 100 MG capsule 100 mg PO BID RF: 0 acetaminophen 325 MG tablet 650 mg PO Q4H PRN PRN (Reason: Mild Pain (scale 0-3)/T>100.7) RF: 0 guaifenesin 10 ML liquid 10 ml PO Q4H PRN PRN (Reason: Cough) RF: 0 potassium chloride 20 mEq tablet,ER particles/crystals 20 meq PO DAILY RF: 0 furosemide 20 mg tablet 20 mg PO DAILY RF: 0 Held furosemide 40 mg tablet 40 mg PO BREAKFAST RF: 0 Hold Instructions: Resume on 11/06/20. Resume after cleared by your Primary care provider. No Action nystatin 100,000 unit/gram powder 1 applic TOPICAL BID RF: 0 isosorbide mononitrate 60 mg tablet extended release 24 hr 60 mg PO DAILY RF: 0 omeprazole 40 MG capsule,delayed release(DR/EC) 40 mg PO DAILY RF: 0 metoprolol tartrate 25 MG tablet 25 mg PO BID RF: 0 ipratropium bromide 12.9 GM HFA aerosol inhaler 2 puff IH Q4H PRN PRN (Reason: Sob &/Or Wheezing) RF: 0 Other Ambulatory Orders: Basic Metabolic Profile (BMP) (Routine) Timeframe: 3 Days Facility: [facility] - Location: Laboratory Ordered By: Ignacio BONILLA Referrals / Follow Up: Eliot Loja MD [Primary Care Provider] -
[2020-10-23 11:20] LABS: Bedside Glucose 215 mg/dL (70-110)
[2020-10-23] MEDS: Metoprolol Tartrate 25 MG Tablet PO (11:21)
[2020-10-23] MEDS: amLODIPine 10 MG Tablet PO (11:21)
[2020-10-23] MEDS: LORazepam 1 MG Tablet PO (11:22)
[2020-10-23] MEDS: Insulin Lispro 100 UNIT/ML INSULN.PEN 14 UNIT SC (11:25)
[2020-10-23] MEDS: Nystatin Powder 15gm Bottle 1 APPLIC TOPICAL (11:28)
--- NOTE | 2020-10-23 13:02 | TREXTCAR_ITS ---
Diet 10/21/20 15:34 Diet: Cardiac: Calorie-Controlled Food consistency:: Mechanical (Minced/Moist) Liquid Consistency:: Regular/Thin Fluid restriction:: 1500 mL How many daily calories?: 1800 calorie Problem/Diagnosis (1) Acute on chronic diastolic (congestive) heart failure: Status: Acute (2) Acute on chronic respiratory failure with hypoxemia: Status: Chronic (3) COPD exacerbation: Status: Acute Allergies/Procedures Done in Hospital Allergies LEANDER Inhibitors Allergy (Verified 10/21/20 12:05) Unknown Type of Care/Length of Stay Estimated LOS: More Than 30 Days Type of Care Needed: Skilled Rehab Potential: Fair Prognosis: Fair Additional Orders/Day of Discharge Day of Discharge: 10/23/20 Dietary and Speech Recommendations Dietitian Recommendations/Changes: continue cardiac, 1800 calorie controlled diet- will add mechanical soft textures per SNF orders; will add 1500mL fluid restriction per Dr. Tavreas. Will monitor need for additional dietary restrictions pending PO intake and renal function. Discharge Plan Admission Admit Date/Time: 10/21/20 15:07 Primary Reason for Your Visit: Shortness of breath Attending Provider: Abdullahi Olea Primary Care Provider: Eliot Loja Consulting Providers: Martha Rivero ; Abdullahi Casillas ; Concha Clarke ; Aura Shaikh ; Savi Jimenez ; Emelina Lai EQUAL OPPORTUNITY COUNSELOR Instructions Patient Instructions: ED Chest Pain, Noncardiac Discharge Orders/Prescriptions Prescriptions: Continued nystatin 100,000 unit/gram powder 1 applic TOPICAL BID RF: 0 amlodipine 10 mg tablet 10 mg PO DAILY RF: 0 atorvastatin 40 mg tablet 40 mg PO QHS RF: 0 bisacodyl 10 mg suppository 10 mg RC DAILY PRN PRN (Reason: Constipation) RF: 0 clonidine 0.1 mg/24 hr patch weekly 1 patch transdermal QWEEK RF: 0 isosorbide mononitrate 60 mg tablet extended release 24 hr 60 mg PO DAILY RF: 0 albuterol sulfate 90 mcg/actuation aerosol powdr breath activated 2 inh INHALATION Q2H PRN (Reason: Shortness Of Breath) RF: 0 insulin glargine 100 unit/mL (3 mL) insulin pen 60 unit subcut QHS RF: 0 insulin lispro 100 unit/mL insulin pen See Rx Instructions subcut TIDAC RF: 0 dulaglutide 1.5 mg/0.5 mL pen injector 1.5 mg SC QWEEK RF: 0 omeprazole 40 MG capsule,delayed release(DR/EC) 40 mg PO DAILY RF: 0 calcium carbonate-vitamin D3 1 EACH tablet 1 ea PO BID RF: 0 aspirin 81 MG tablet 81 mg PO DAILY@0800 RF: 0 metoprolol tartrate 25 MG tablet 25 mg PO BID RF: 0 apixaban 2.5 MG tablet 2.5 mg PO BID RF: 0 ipratropium bromide 12.9 GM HFA aerosol inhaler 2 puff IH Q4H PRN PRN (Reason: Sob &/Or Wheezing) RF: 0 docusate sodium 100 MG capsule 100 mg PO BID RF: 0 acetaminophen 325 MG tablet 650 mg PO Q4H PRN PRN (Reason: Mild Pain (scale 0-3)/T>100.7) RF: 0 guaifenesin 10 ML liquid 10 ml PO Q4H PRN PRN (Reason: Cough) RF: 0 potassium chloride 20 mEq tablet,ER particles/crystals 20 meq PO DAILY RF: 0 furosemide 20 mg tablet 20 mg PO DAILY RF: 0 Held furosemide 40 mg tablet 40 mg PO BREAKFAST RF: 0 Hold Instructions: Resume on 11/06/20. Resume after cleared by your Primary care provider. Other Ambulatory Orders: Basic Metabolic Profile (BMP) (Routine) Timeframe: 3 Days Facility: [facility] - Location: Laboratory Ordered By: Ignacio BONILLA Referrals / Follow Up: Eliot Loja MD [Primary Care Provider] - Within 2 Weeks Disposition Disposition (needs filled in before D/C Order can be placed): Long-Term Facility
--- NOTE | 2020-10-23 13:05 | PCM.DC.SUM ---
Documented by User: Ignacio BONILLA 10/23/20 13:16 Providers Date of Admission: 10/21/20 Primary Care Physician: Dr. Eliot Loja MD Consultations 10/21/20 18:36 Consult: Hospice / Palliative Care Routine Consulting Provider: [facility] Reason for Consult: Recurrent CHF admission EMERGENT Consult: No MD Notified: Yes Date Notified: 10/21/20 Time Notified: 18:36 Method of Notification: Answering Service Reason For Visit: ACUTE ON CHRONIC HEART FAILURE Diagnosis Discharge Diagnosis (1) Acute on chronic diastolic (congestive) heart failure: Status: Acute Code(s): I50.33 - Acute on chronic diastolic (congestive) heart failure (2) Acute on chronic respiratory failure with hypoxemia: Status: Chronic Code(s): J96.21 - Acute and chronic respiratory failure with hypoxia (3) COPD exacerbation: Status: Acute Code(s): J44.1 - Chronic obstructive pulmonary disease with (acute) exacerbation Medications at Discharge Home Medications calcium carbonate-vitamin D3 1 ea PO BID 04/19/17 omeprazole 40 mg PO DAILY 04/19/17 apixaban 2.5 mg PO BID tab 10/27/17 aspirin 81 mg PO DAILY@0800 tab 10/27/17 metoprolol tartrate 25 mg PO BID tab 10/27/17 nystatin 100,000 unit/gram topical powder 1 applic TOPICAL BID 02/24/18 amlodipine 10 mg tablet 10 mg PO DAILY 09/08/18 atorvastatin 40 mg tablet 40 mg PO QHS 02/25/19 bisacodyl 10 mg rectal suppository 10 mg RC DAILY PRN PRN 02/25/19 clonidine 0.1 mg/24 hr weekly transdermal patch 1 patch TRANSDERMAL QWEEK 02/25/19 isosorbide mononitrate 60 mg tablet,extended release 24 hr 60 mg PO DAILY 10/05/19 acetaminophen 650 mg PO Q4H PRN PRN 10/11/19 docusate sodium 100 mg PO BID 10/11/19 guaifenesin 10 ml PO Q4H PRN PRN 10/11/19 ipratropium bromide 2 puff IH Q4H PRN PRN 10/11/19 albuterol sulfate 90 mcg/actuation breath activated powder inhaler 2 inh INHALATION Q2H PRN each 08/01/20 dulaglutide 1.5 mg/0.5 mL subcutaneous pen injector 1.5 mg SC QWEEK ml 08/01/20 insulin glargine 100 unit/mL (3 mL) subcutaneous pen 60 unit SUBCUT QHS ml 08/01/20 insulin lispro 100 unit/mL subcutaneous pen See Rx Instructions SUBCUT TIDAC insuln.pen 08/01/20 furosemide 20 mg PO DAILY 10/21/20 furosemide 40 mg PO BREAKFAST 10/21/20 potassium chloride 20 meq PO DAILY 10/21/20 prednisone 40 mg PO DAILY #10 tab 10/23/20 Hospital Course Summary of Care Provided Minutes Spent on Discharge: 35 Hospital Course: Disposition: Patient to return back to [facility] where she is a long-term resident. 1) acute on chronic hypoxic respiratory failure secondary to HFpEF/COPD exacerbation. Patient currently satting 95% on 4 L via nasal cannula, baseline oxygen requirements between 3 to 4 L/min. Echocardiogram obtained on 10/23 demonstrated normal LV size, mild segmental diastolic dysfunction, an estimated EF of 55%, stage III diastolic dysfunction and severe pulmonary hypertension with a pulmonary artery systolic pressure of 70 mmHg. Plan; Lasix 20 mg continued on discharge, Lasix 40 mg held upon discharge until patient can meet with her primary care provider to determine kidney function, continue metoprolol, continue bronchodilators, prednisone 40 mg x 5 days ordered. 2) LANDRY on CKD 3 Creatinine is currently 2.25, baseline is between 1.5 and 2. Plan; reinitiate home Lasix as above, BMP ordered 3 days from discharge, follow-up with primary care provider within the next 2 weeks. 3) hyperkalemia Resolved 4) CAD/HTN/HPL/PAF Continue aspirin, continue amlodipine, continue statin, continue clonidine, Lasix as above, continue isosorbide mononitrate, continue metoprolol, continue Eliquis per 5) GERD -Continue PPI 6) DM-2 Continue home diabetic regimen. 7) ANA Continue home CPAP. Patient seen by Ignacio Vergara PA-C, under the supervision of Dr. Olea. Physical Exam Narrative Patient is a 85-year-old female resting in a chair, alert and orient x3. Patient reports improvement of her shortness of breath relative to yesterday. Denies chest pain, shortness of breath, palpitations, hemoptysis, sputum production, fever, chills, N/V/D. . Const alert, oriented x3 and no apparent distress HEENT normocephalic, head/scalp atraumatic and hearing grossly normal bilaterally Eyes EOMs intact bilaterally and conjunctivae normal Neck no lymphadenopathy, supple and no JVD Resp normal respiratory effort, no retractions and no use of accessory muscles Auscultation: diminished lung sounds Cardio regular rate, regular rhythm, no murmurs and no JVD GI normal to inspection, nondistended, normoactive bowel sounds, soft to palpation and non-tender Extremity normal to inspection, full ROM and no clubbing, cyanosis or edema Skin no rashes or lesions noted, no wounds and skin turgor normal Neuro CN's II-XII intact bilaterally Psych affect normal Weight / BMI Weight Weight: 227 lb 11.8 oz Body Mass Index (BMI) 44.6 ABG / Lab / Microbiology Data Result Diagrams: 10/23/20 05:51 10/23/20 07:40 Laboratory: Laboratory Results - last 24 hr 10/22/20 16:31: POC Glucose 174 H 10/22/20 21:37: POC Glucose 218 H 10/23/20 05:51: WBC 12.2 H, RBC 2.77 L, Hgb 8.5 L, Hct 29.2 L, MCV 105.4 H, MCH 30.7, MCHC 29.1 L, RDW Std Deviation 57.6 H, RDW Coeff of Deepali 15.2 H, Plt Count 253, MPV 11.1, Immature Gran % (Auto) 1.000 H, Neut % (Auto) 88.9 H, Lymph % (Auto) 6.1 L, Refug[place] % (Auto) 3.9, Eos % (Auto) 0.0, Baso % (Auto) 0.1, Absolute Neuts (auto) 10.8 H, Absolute Lymphs (auto) 0.75 L, Nucleated RBC % 0.5 10/23/20 05:51: Sodium Cancelled, Potassium Cancelled, Chloride Cancelled, Carbon Dioxide Cancelled, Anion Gap Cancelled, BUN Cancelled, Creatinine Cancelled, Estim Creat Clear Calc Cancelled, Est GFR (MDRD) Af Amer Cancelled, Est GFR (MDRD) Non-Af Cancelled, BUN/Creatinine Ratio Cancelled, Glucose Cancelled, Calcium Cancelled 10/23/20 07:40: Sodium 140, Potassium 5.0, Chloride 105, Carbon Dioxide 29.0, Anion Gap 6, BUN 63 H, Creatinine 2.25 H, Estim Creat Clear Calc 13.37, Est GFR (MDRD) Af Amer 27 L, Est GFR (MDRD) Non-Af 22 L, BUN/Creatinine Ratio 28.0 H, Glucose 245 H, Calcium 8.5 10/23/20 08:35: POC Glucose 241 H 10/23/20 11:14: POC Glucose 215 H Radiography Diagnostic Testing: Radiology Impression Echocardiogram 10/22/20 15:35 Interpretation Summary Normal LV size. The estimated ejection fraction is 55 %. Mild segmental systolic dysfunction (see wall motion). Stage 3 diastolic dysfunction. There are regional wall motion abnormalities as specified. Pulmonary artery systolic pressure is 70 mmHg. Severe pulmonary hypertension. Ordering Physician: Tiffanie Solomon Referring Physician: ELIOT HILLS Performed By: Francesca Jimenez RDCS, RVT Meaningful Use Info Meaningful Use Diagnoses (Choose all that apply): CHF CHF LEANDER/ARB ordered at discharge?: No Reason LEANDER/ARB not ordered?: Worsening renal function Documented LVEF (%): 55 Discharge Plan Admission Admit Date/Time: 10/21/20 15:07 Primary Reason for Your Visit: Shortness of breath Attending Provider: Abdullahi Olea Primary Care Provider: Eliot Loja Consulting Providers: Martha Rivero ; Abdullahi Casillas ; Concha Clarke ; Aura Shaikh ; Savi Jimenez ; Emelina Lai FORENSIC ENGINEER Instructions Patient Instructions: ED Chest Pain, Noncardiac Discharge Orders/Prescriptions Prescriptions: New prednisone 20 mg tablet 40 mg PO DAILY Qty: 10 RF: 0 Continued nystatin 100,000 unit/gram powder 1 applic TOPICAL BID RF: 0 amlodipine 10 mg tablet 10 mg PO DAILY RF: 0 atorvastatin 40 mg tablet 40 mg PO QHS RF: 0 bisacodyl 10 mg suppository 10 mg RC DAILY PRN PRN (Reason: Constipation) RF: 0 clonidine 0.1 mg/24 hr patch weekly 1 patch transdermal QWEEK RF: 0 isosorbide mononitrate 60 mg tablet extended release 24 hr 60 mg PO DAILY RF: 0 albuterol sulfate 90 mcg/actuation aerosol powdr breath activated 2 inh INHALATION Q2H PRN (Reason: Shortness Of Breath) RF: 0 insulin glargine 100 unit/mL (3 mL) insulin pen 60 unit subcut QHS RF: 0 insulin lispro 100 unit/mL insulin pen See Rx Instructions subcut TIDAC RF: 0 dulaglutide 1.5 mg/0.5 mL pen injector 1.5 mg SC QWEEK RF: 0 omeprazole 40 MG capsule,delayed release(DR/EC) 40 mg PO DAILY RF: 0 calcium carbonate-vitamin D3 1 EACH tablet 1 ea PO BID RF: 0 aspirin 81 MG tablet 81 mg PO DAILY@0800 RF: 0 metoprolol tartrate 25 MG tablet 25 mg PO BID RF: 0 apixaban 2.5 MG tablet 2.5 mg PO BID RF: 0 ipratropium bromide 12.9 GM HFA aerosol inhaler 2 puff IH Q4H PRN PRN (Reason: Sob &/Or Wheezing) RF: 0 docusate sodium 100 MG capsule 100 mg PO BID RF: 0 acetaminophen 325 MG tablet 650 mg PO Q4H PRN PRN (Reason: Mild Pain (scale 0-3)/T>100.7) RF: 0 guaifenesin 10 ML liquid 10 ml PO Q4H PRN PRN (Reason: Cough) RF: 0 potassium chloride 20 mEq tablet,ER particles/crystals 20 meq PO DAILY RF: 0 furosemide 20 mg tablet 20 mg PO DAILY RF: 0 Held furosemide 40 mg tablet 40 mg PO BREAKFAST RF: 0 Hold Instructions: Resume on 11/06/20. Resume after cleared by your Primary care provider. Other Ambulatory Orders: Basic Metabolic Profile (BMP) (Routine) Timeframe: 3 Days Facility: [facility] - Location: Laboratory Ordered By: Ignacio BONILLA Referrals / Follow Up: Eliot Loja MD [Primary Care Provider] - Within 2 Weeks Disposition Disposition (needs filled in before D/C Order can be placed): [facility] Facility Documented by User: Dr. Abdullahi Olea MD 10/23/20 13:32 Providers Date of Admission: 10/21/20 Reason For Visit: ACUTE ON CHRONIC HEART FAILURE Medications at Discharge Home Medications calcium carbonate-vitamin D3 1 ea PO BID 04/19/17 omeprazole 40 mg PO DAILY 04/19/17 apixaban 2.5 mg PO BID tab 10/27/17 aspirin 81 mg PO DAILY@0800 tab 10/27/17 metoprolol tartrate 25 mg PO BID tab 10/27/17 nystatin 100,000 unit/gram topical powder 1 applic TOPICAL BID 02/24/18 amlodipine 10 mg tablet 10 mg PO DAILY 09/08/18 atorvastatin 40 mg tablet 40 mg PO QHS 02/25/19 bisacodyl 10 mg rectal suppository 10 mg RC DAILY PRN PRN 02/25/19 clonidine 0.1 mg/24 hr weekly transdermal patch 1 patch TRANSDERMAL QWEEK 02/25/19 isosorbide mononitrate 60 mg tablet,extended release 24 hr 60 mg PO DAILY 10/05/19 acetaminophen 650 mg PO Q4H PRN PRN 10/11/19 docusate sodium 100 mg PO BID 10/11/19 guaifenesin 10 ml PO Q4H PRN PRN 10/11/19 ipratropium bromide 2 puff IH Q4H PRN PRN 10/11/19 albuterol sulfate 90 mcg/actuation breath activated powder inhaler 2 inh INHALATION Q2H PRN each 08/01/20 dulaglutide 1.5 mg/0.5 mL subcutaneous pen injector 1.5 mg SC QWEEK ml 08/01/20 insulin glargine 100 unit/mL (3 mL) subcutaneous pen 60 unit SUBCUT QHS ml 08/01/20 insulin lispro 100 unit/mL subcutaneous pen See Rx Instructions SUBCUT TIDAC insuln.pen 08/01/20 furosemide 20 mg PO DAILY 10/21/20 furosemide 40 mg PO BREAKFAST 10/21/20 potassium chloride 20 meq PO DAILY 10/21/20 prednisone 40 mg PO DAILY #10 tab 10/23/20 Hospital Course Operations None Summary of Care Provided Hospital Course: This patient was seen in conjunction with Ignacio Vergara PA-C. I have independently interviewed and examined the patient and reviewed pertinent historical, laboratory, and other data. Please refer to Ignacio Vergara PA-C's note for details of this patient's presentation, findings, and recommendations. I have reviewed Ignacio Vergara PA-C's note and concur with documented findings. In brief, patient is a an 85-year-old lady admitted with progressive shortness of breath managed as a case of acute on chronic hypoxic respiratory failure Hospital course as documented above ABG / Lab / Microbiology Data Result Diagrams: 10/23/20 05:51 10/23/20 07:40 Discharge Plan Admission Admit Date/Time: 10/21/20 15:07 Primary Reason for Your Visit: Shortness of breath Attending Provider: Abdullahi Olea Primary Care Provider: Eliot Loja Consulting Providers: Martha Rivero ; Abdullahi Casillas ; Concha Clarke ; Aura Shaikh ; Savi Jimenez ; Emelina Lai FORENSIC ENGINEER Instructions Patient Instructions: ED Chest Pain, Noncardiac Discharge Orders/Prescriptions Prescriptions: New prednisone 20 mg tablet 40 mg PO DAILY Qty: 10 RF: 0 Continued nystatin 100,000 unit/gram powder 1 applic TOPICAL BID RF: 0 amlodipine 10 mg tablet 10 mg PO DAILY RF: 0 atorvastatin 40 mg tablet 40 mg PO QHS RF: 0 bisacodyl 10 mg suppository 10 mg RC DAILY PRN PRN (Reason: Constipation) RF: 0 clonidine 0.1 mg/24 hr patch weekly 1 patch transdermal QWEEK RF: 0 isosorbide mononitrate 60 mg tablet extended release 24 hr 60 mg PO DAILY RF: 0 albuterol sulfate 90 mcg/actuation aerosol powdr breath activated 2 inh INHALATION Q2H PRN (Reason: Shortness Of Breath) RF: 0 insulin glargine 100 unit/mL (3 mL) insulin pen 60 unit subcut QHS RF: 0 insulin lispro 100 unit/mL insulin pen See Rx Instructions subcut TIDAC RF: 0 dulaglutide 1.5 mg/0.5 mL pen injector 1.5 mg SC QWEEK RF: 0 omeprazole 40 MG capsule,delayed release(DR/EC) 40 mg PO DAILY RF: 0 calcium carbonate-vitamin D3 1 EACH tablet 1 ea PO BID RF: 0 aspirin 81 MG tablet 81 mg PO DAILY@0800 RF: 0 metoprolol tartrate 25 MG tablet 25 mg PO BID RF: 0 apixaban 2.5 MG tablet 2.5 mg PO BID RF: 0 ipratropium bromide 12.9 GM HFA aerosol inhaler 2 puff IH Q4H PRN PRN (Reason: Sob &/Or Wheezing) RF: 0 docusate sodium 100 MG capsule 100 mg PO BID RF: 0 acetaminophen 325 MG tablet 650 mg PO Q4H PRN PRN (Reason: Mild Pain (scale 0-3)/T>100.7) RF: 0 guaifenesin 10 ML liquid 10 ml PO Q4H PRN PRN (Reason: Cough) RF: 0 potassium chloride 20 mEq tablet,ER particles/crystals 20 meq PO DAILY RF: 0 furosemide 20 mg tablet 20 mg PO DAILY RF: 0 Held furosemide 40 mg tablet 40 mg PO BREAKFAST RF: 0 Hold Instructions: Resume on 11/06/20. Resume after cleared by your Primary care provider. Other Ambulatory Orders: Basic Metabolic Profile (BMP) (Routine) Timeframe: 3 Days Facility: [facility] - Location: Laboratory Ordered By: Ignacio BONILLA Referrals / Follow Up: Eliot Loja MD [Primary Care Provider] - Within 2 Weeks Disposition Disposition (needs filled in before D/C Order can be placed): [facility] Facility Charges/Coding Visit Charges Inpatient E&M: 55710 Disch Hosp Hospital Course Consultations Consultations: Consultations 10/21/20 18:36 Consult: Hospice / Palliative Care Routine Consulting Provider: [facility] Reason for Consult: Recurrent CHF admission EMERGENT Consult: No Notified: Yes Date Notified: 10/21/20 Time Notified: 18:36 Method of Notification: Answering Service Operations None
--- NOTE | 2020-10-23 13:37 | PHA.DC.MR ---
Pharmacy Service has performed discharge medication reconciliation for this patient. The patient's discharge medication list was reviewed for discrepancies and discrepancies were resolved. Home Medications calcium carbonate-vitamin D3 1 ea PO BID 04/19/17 omeprazole 40 mg PO DAILY 04/19/17 apixaban 2.5 mg PO BID tab 10/27/17 aspirin 81 mg PO DAILY@0800 tab 10/27/17 metoprolol tartrate 25 mg PO BID tab 10/27/17 nystatin 100,000 unit/gram topical powder 1 applic TOPICAL BID 02/24/18 amlodipine 10 mg tablet 10 mg PO DAILY 09/08/18 atorvastatin 40 mg tablet 40 mg PO QHS 02/25/19 bisacodyl 10 mg rectal suppository 10 mg RC DAILY PRN PRN 02/25/19 clonidine 0.1 mg/24 hr weekly transdermal patch 1 patch TRANSDERMAL QWEEK 02/25/19 isosorbide mononitrate 60 mg tablet,extended release 24 hr 60 mg PO DAILY 10/05/19 acetaminophen 650 mg PO Q4H PRN PRN 10/11/19 docusate sodium 100 mg PO BID 10/11/19 guaifenesin 10 ml PO Q4H PRN PRN 10/11/19 ipratropium bromide 2 puff IH Q4H PRN PRN 10/11/19 albuterol sulfate 90 mcg/actuation breath activated powder inhaler 2 inh INHALATION Q2H PRN each 08/01/20 dulaglutide 1.5 mg/0.5 mL subcutaneous pen injector 1.5 mg SC QWEEK ml 08/01/20 insulin glargine 100 unit/mL (3 mL) subcutaneous pen 60 unit SUBCUT QHS ml 08/01/20 insulin lispro 100 unit/mL subcutaneous pen See Rx Instructions SUBCUT TIDAC insuln.pen 08/01/20 furosemide 20 mg PO DAILY 10/21/20 furosemide 40 mg PO BREAKFAST 10/21/20 potassium chloride 20 meq PO DAILY 10/21/20 prednisone 40 mg PO DAILY #10 tab 10/23/20
--- NOTE | 2020-10-23 14:42 | CASEMGMT ---
Addendum entered by Nikki Zarate 10/23/20 15:16: [facility] faxed negative COVID test to [facility] and also arranged for patient to get picked up at 430 via cot. [facility] notified RN and Abigal at [facility]. Plan: d/c back to [facility] under intermediate level of care. [facility] transported via cot. Nikki LEDESMA Original Note: Patient is ready to return to go back to [facility]. [facility] called and notified Abigal at [facility] as well as faxed orders. [facility] spoke with patient and she did not want anyone called about her discharge. [facility] will fax the negative COVID test to [facility] as soon as it is done. [facility] will also arrange transportation. Nikki LEDESMA
--- NOTE | 2020-10-23 15:17 | CHAPLAIN ---
Type of Pastoral Visit _x__ Initial Visit ___ Follow-up Visit ___ On-call Visit ___ General Patient Visit ___ Spiritual Assessment ___ Family Conference ___ Bereavement ___ Rapid Response ___ Code Blue ___ Other (describe below) Pastoral Care Referral From _x__ Patient ___ Family ___ Nurse ___ Physician ___ Site Identification Specialist ___ Manager Housekeeping ___ Other (describe below) Sacrament/Intervention ___ Active listening ___ Anointing ___ Muslim ___ Bereavement ___ Communion ___ Roberta exploration ___ ___ Life review _x__ Prayer ___ Reconciliation ___ Sacrament of Sick _x__ Supportive presence ___ Wedding ___ Other (describe below) Pastoral Comments patient is pleasant and smiles but does not talk much; pt gives one word answers or simple phrases to questions; pt says that she is better and would welcome the prayers
--- NOTE | 2020-10-23 15:28 | NURSING ---
Returned phone call to Razia, patient's grand daughter and updated her on patient's condition and discharge back to facility.
--- NOTE | 2020-10-23 16:05 | CON.PCM.PA_ITS ---
Assessment & Plan Assessment/Plan (1) Shortness of breath: (2) Anxiety: (3) Acute on chronic respiratory failure with hypoxemia: (4) ANA (obstructive sleep apnea): (5) Atherosclerosis of coronary artery of [place] heart without angina pectoris: QUALIFIERS: Coronary Disease-Associated Artery/Lesion type: [place] artery Qualified Code(s): I25.10 - Atherosclerotic heart disease of [place] coronary artery without angina pectoris (6) Old anterior wall myocardial infarction: (7) NSTEMI (non-ST elevated myocardial infarction): (8) H/O coronary artery bypass surgery: (9) Ischemic cardiomyopathy: (10) Acute on chronic combined systolic and diastolic heart failure: (11) Paroxysmal atrial fibrillation: (12) Nonrheumatic mitral (valve) insufficiency: (13) Non-rheumatic tricuspid valve insufficiency: (14) Secondary pulmonary arterial hypertension: (15) Type 2 diabetes mellitus: QUALIFIERS: Diabetes mellitus turntable engineer insulin use: with turntable engineer use Diabetes mellitus complication status: with kidney complications Diabetes mellitus complication detail: with chronic kidney disease Chronic kidney disease stage 3 subtype: stage 3b (GFR 30-44) PLAN: 85-year-old female with acute on chronic hypoxemic respiratory failure, COPD, and CHF exacerbation, seen today for palliative care consultation for symptom management of shortness of breath and anxiety. 1. Shortness of breath: Multifactorial. Anxiety plays a role as well. She is not on an anxiolytic or antidepressant at baseline. She anxiolytic. She seemed to tolerate Ativan in the hospital as well. She wears CPAP at night. Since she is leaving any minute now from the hospital, we will not start her on any medications at this time, but will follow up with her as an outpatient. In the meantime, she should have close follow-up with her primary care and specialists for management of her chronic conditions. 2. Anxiety: See above 3. CHF: Seems to have recurrent admissions for exacerbations. Would advise evaluating her diet and following closely with cardiology to adjust medications as needed. Palliative care can help with surveillance and collaboration with her other providers. We will follow-up as an outpatient 4. PAF/secondary pulmonary arterial hypertension/T2DM/ischemic cardiomyopathy/CAD s/p NSTEMI and CABG/ANA: Complicates overall care, management, recovery, and prognosis. Attending physician was updated on palliative plan of care. Thank you for the opportunity to participate in this patient's care, please do not hesitate to contact [facility] with any further questions or concerns. Palliative direct line is [phone]. We will follow up after discharge and will discuss palliative services further at that time. She states she does not have a healthcare power of attorney at law, however her granddaughter Razia will need contacted for liaison visit. Greater than 50% of F2F visit dedicated to education and counseling of palliative care services, medications, comorbid conditions and potential assistance with management, and plan of care moving forward. Start time: 1606 End time: 1645 HPI Consult Data Date of Consult: 10/23/20 HPI Narrative HPI Narrative: SABRINA GONZALEZ, is a 85 F who presented from [facility] to [facility] with increased shortness of breath. She was found to have acute on chronic hypoxemic respiratory failure secondary to COPD exacerbation and acute CHF exacerbation. She has a baseline oxygen requirement of 3 to 4 L. Admitted to the progressive care unit for further evaluation and management. Patient was just admitted 10/12 through 10/16/2020 for acute on chronic CHF. There was a palliative consult over the weekend and patient is being seen today prior to her discharge back to [facility] for symptom management of shortness of breath and anxiety. Patient was diuresed. Echocardiogram 10/23 demonstrated normal LV size, mild segmental diastolic dysfunction, estimated EF of 55%, stage III diastolic dysfunction, and severe pulmonary hypertension with an RVSP of 70 mmHg. Plan was to decrease her Lasix from 40 mg to 20 mg upon discharge until she can follow-up with her primary care provider to further assess. Creatinine currently 2.25, her baseline is reported to be between 1.5 and 2. She will have follow-up labs in the [facility]. Nursing reports patient exhibits a lot of anxiety. She feels she cannot breathe however oxygenation remains around 98%. Patient is nonambulatory at baseline. She is able to feed herself but requires assistance with care. She was actually getting IV Ativan as needed at the hospital but does not have an anxiolytic on her home medication list. Patient states she does not have any friends or family, denies having any children or HC POA but according to case management notes, patient's granddaughter Razia Gibbs is contact at [phone]. She also has a brother, Pj Mo as a contact, his number is [phone]. Patient denies any N/V/D. No current shortness of breath or chest pain. No dizziness or syncopal episodes. Denies any constipation. Again, she is nonambulatory at baseline. No chronic pain issues. Says she has edema most of the time but unsure how extensive. No vision changes. No focal deficits. She feels weak all the time. [facility] Medical History (Updated 10/23/20 @ 16:32 by Aura Shaikh NP-C) Acute on chronic combined systolic and diastolic heart failure Anemia Atherosclerosis of coronary artery bypass graft without angina pectoris Atherosclerosis of coronary artery of [place] heart without angina pectoris Chronic hypoxemic respiratory failure Chronic renal failure, stage 3 (moderate) Colon polyp Gastric ulcer Ischemic cardiomyopathy Non-rheumatic tricuspid valve insufficiency Nonrheumatic mitral (valve) insufficiency NSTEMI (non-ST elevated myocardial infarction) (10/20/17) Obesity Old anterior wall myocardial infarction ANA (obstructive sleep apnea) Paroxysmal atrial fibrillation Secondary pulmonary arterial hypertension Type 2 diabetes mellitus Home Medications calcium carbonate-vitamin D3 1 ea PO BID 04/19/17 [History Last Taken 09/22/17 12:00] omeprazole 40 mg PO DAILY 04/19/17 [History Last Taken 09/22/17 06:30] apixaban 2.5 mg PO BID tab 10/27/17 [Rx Last Taken Unknown] aspirin 81 mg PO DAILY@0800 tab 10/27/17 [Rx Last Taken Unknown] metoprolol tartrate 25 mg PO BID tab 10/27/17 [Rx Last Taken Unknown] nystatin 100,000 unit/gram topical powder 1 applic TOPICAL BID 02/24/18 [History Last Taken Unknown] amlodipine 10 mg tablet 10 mg PO DAILY 09/08/18 [History Last Taken Unknown] atorvastatin 40 mg tablet 40 mg PO QHS 02/25/19 [History Last Taken Unknown] bisacodyl 10 mg rectal suppository 10 mg RC DAILY PRN PRN 02/25/19 [History Last Taken Unknown] clonidine 0.1 mg/24 hr weekly transdermal patch 1 patch TRANSDERMAL QWEEK 02/25 [History Last Taken Unknown] isosorbide mononitrate 60 mg tablet,extended release 24 hr 60 mg PO DAILY 10/05/19 [History Last Taken Unknown] acetaminophen 650 mg PO Q4H PRN PRN 10/11/19 [History Last Taken Unknown] docusate sodium 100 mg PO BID 10/11/19 [History Last Taken Unknown] guaifenesin 10 ml PO Q4H PRN PRN 10/11/19 [History Last Taken Unknown] ipratropium bromide 2 puff IH Q4H PRN PRN 10/11/19 [History Last Taken Unknown] albuterol sulfate 90 mcg/actuation breath activated powder inhaler 2 inh INHALATION Q2H PRN each 08/01/20 [History Last Taken Unknown] dulaglutide 1.5 mg/0.5 mL subcutaneous pen injector 1.5 mg SC QWEEK ml 08/01/20 [History Last Taken Unknown] insulin glargine 100 unit/mL (3 mL) subcutaneous pen 60 unit SUBCUT QHS ml 08/01/20 [History Last Taken Unknown] insulin lispro 100 unit/mL subcutaneous pen See Rx Instructions SUBCUT TIDAC insuln.pen 08/01/20 [History Last Taken Unknown] furosemide 20 mg PO DAILY 10/21/20 [History Last Taken Unknown] furosemide 40 mg PO BREAKFAST 10/21/20 [History Last Taken Unknown] potassium chloride 20 meq PO DAILY 10/21/20 [History Last Taken Unknown] prednisone 40 mg PO DAILY #10 tab 10/23/20 [Rx Last Taken Unknown] Allergy/AdvReac Type Severity Reaction Status Date / Time LEANDER Inhibitors Allergy Unknown Verified 10/21/20 12:05 Family History Other No pertinent family history Surgical History H/O coronary artery bypass surgery History of appendectomy History of left heart catheterization (10/24/17) History of tonsillectomy and adenoidectomy Hx of cholecystectomy Social History Smoking Status: Never smoker alcohol intake: never substance use type: does not use Physical Exam Const alert, oriented x3 and no apparent distress General Appearance: cooperative Nutritional Appearance: morbidly obese HEENT normocephalic and head/scalp atraumatic Neck supple General: trachea midline Resp normal respiratory effort Resp Narrative: Speaks 1-2 words at a time. Effort and Inspection: symmetric chest movement Auscultation: rhonchi throughout (Coarse) and diminished lung sounds diffuse; Negative for wheezes Cardio regular rate, S1 normal heart sound and S2 normal heart sound Rhythm: abnormal rhythm GI normal to inspection, nondistended, normoactive bowel sounds GI Narrative: Obesity distention Extremity General Extremity: edema bilateral lower extremity; Negative for clubbing or cyanosis Skin Skin Narrative: No wounds noted. Has a few small scabs on her arms Neuro CN's II-XII intact bilaterally and no focal motor deficits Neuro Narrative: Slow to respond, typically uses 1 or 2 word answers and yes/no Psych Appearance: unkempt Activity / Motor Behavior: appropriate eye contact Speech: slow Mood & Affect: flat affect
--- NOTE | 2020-10-23 16:21 | NURSING ---
Called report to Janice nurse at [facility].
== END 2020-10-23 16:46 | disposition skilled nursing facility (03) | DRG 291 ==
LOC: ED 15:04 → PCU 15:10
PROVIDERS: Internal Medicine; Admitting Provider Student in an Organized Health Care Education/Training Program; Emergency Provider Student in an Organized Health Care Education/Training Program; PCP Internal Medicine; Visit Provider Internal Medicine
DX: I13.0 Hypertensive heart and chronic kidney disease with heart failure and stage 1 through stage 4 chronic kidney disease, or unspecified chronic kidney disease (principal); I50.43 Acute on chronic combined systolic (congestive) and diastolic (congestive) heart failure; J96.21 Acute and chronic respiratory failure with hypoxia; J44.1 Chronic obstructive pulmonary disease with (acute) exacerbation; N17.9 Acute kidney failure, unspecified; I25.810 Atherosclerosis of coronary artery bypass graft(s) without angina pectoris; Z68.41 Body mass index [BMI] 40.0-44.9, adult; E11.22 Type 2 diabetes mellitus with diabetic chronic kidney disease; N18.32 Chronic kidney disease, stage 3b; E87.5 Hyperkalemia; I48.0 Paroxysmal atrial fibrillation; E78.5 Hyperlipidemia, unspecified; K21.9 Gastro-esophageal reflux disease without esophagitis; G47.33 Obstructive sleep apnea (adult) (pediatric); Z99.81 Dependence on supplemental oxygen; E66.01 Morbid (severe) obesity due to excess calories; F41.9 Anxiety disorder, unspecified; Z79.4 Long term (current) use of insulin; Z79.02 Long term (current) use of antithrombotics/antiplatelets; Z79.51 Long term (current) use of inhaled steroids; Z79.899 Other long term (current) drug therapy
CPT/HCPCS: 36415; 36600; 71045; 80048; 82803; 82962; 83880; 84484; 85025; 87426; 93005; 93306; 94640; 94660; 97163; 97166; 97530; 97802; 99251; 99285; Q9957; A4216; G0463; J1940; J3490

== ENCOUNTER → 2020-10-26 05:00 | Outpatient (REF) | payer MEDICARE, MEDICAID, SELFPAY ==
[2020-10-21 15:32] VITALS: BMI 44.6
[2020-10-26 07:23] LABS: Hematocrit 32.4 % (37-47); Hemoglobin 9.4 g/dL (12.0-15.0); Mean Corpuscular Hgb 30.2 pg (27.0-32.0); Mean Corpuscular Volume 104.2 fL (81-99); Mean Platelet Vol. 11.3 fl (6.2-12.0); Platelet Count 249 K/mm3 (150-450); RBC Distribution Width CV 15.2 % (11.6-14.6); RBC Distribution Width SD 57.7 fl (35.1-43.9); Red Blood Count 3.11 M/mm3 (4.2-5.4); White Blood Count 10.7 K/mm3 (4.4-11.0)
[2020-10-26 07:51] LABS: AST(SGOT) 23 U/L (15-37); Alanine Aminotransfer ALT/SGPT 27 U/L (13-56); Albumin, Serum 2.6 g/dL (3.2-5.0); Alkaline Phosphatase 98 U/L (45-117); Anion Gap 5 (5-15); BUN 53 mg/dL (7-18); BUN/Creat Ratio 30.3 RATIO (10-20); Bilirubin, Direct 0.22 mg/dL (0.00-0.30); Calcium,Total 8.5 mg/dL (8.5-10.1); Chloride 109 mmol/L (98-107); Cholesterol 115 mg/dL (200); Creatinine, Serum 1.75 mg/dL (0.55-1.02); EST Glomerular Filtration Rate 29 mL/min (>60); Est Glom Filt Rate - Afr Amer 36 mL/min (>60); Globulin 4.3 g/dL (2.2-4.2); Glucose 65 mg/dL (74-106); High Density Lipoprotein 44 mg/dL; Potassium 4.2 mmol/L (3.5-5.1); Protein, Total 6.9 g/dL (6.4-8.2); Sodium Level 145 mmol/L (136-145); Triglycerides 166 mg/dL; Very Low Density Lipoprotein 33 mg/dL (5-40)
[2020-10-26 08:44] LABS: Hemoglobin A1c 6.5 % (3.8-5.6)
[2020-10-26 14:41] VITALS: BMI 36.0
== END ==
LOC: OLS.SW300 05:00
PROVIDERS: PCP Internal Medicine; Visit Provider Family Medicine
DX: D64.9 Anemia, unspecified (principal)
CPT/HCPCS: 36415; 80048; 80061; 80076; 83036; 85027

== ENCOUNTER 2020-10-26 09:54 | Inpatient (IN) | payer MEDICARE, MEDICAID, SELFPAY ==
[2020-10-21 15:32] VITALS: BMI 44.6
[2020-10-26] VITALS (26 sets, daily range): BP systolic 135–205; BP diastolic 72–91; PULSE 59–104; RESP 12–39; TEMP 36.2–37.3; O2SAT 85–99; BMI 36.7; BMI 36.0
--- NOTE | 2020-10-26 10:06 | EKG12_ITS ---
Test Reason : SOB Blood Pressure : / mmHG Vent. Rate : 080 BPM Atrial Rate : 326 BPM P-R Int : 000 ms QRS Dur : 134 ms QT Int : 408 ms P-R-T Axes : 000 -13 037 degrees QTc Int : 470 ms Atrial fibrillation with premature ventricular or aberrantly conducted complexes Right bundle branch block Possible Lateral infarct , age undetermined Abnormal ECG Confirmed by ELIA STOVALL, PEARL ([id number]), graphics editor LEVON MCCALL ([id number]) on 10/30/2020 9:27:43 AM Referred By: KAM Confirmed By:WILFREDO RODRIGEZ MD
[2020-10-26] MEDS: Aspirin 81 MG TAB.CHEW 324 MG PO (10:20)
[2020-10-26 10:25] LABS: Absolute Lymphocyte Count 0.67 X10^3/uL (0.83-4.51); Absolute Neutrophil Count 9.7 X10^3/uL (2.0-7.7); Basophil# 0.01 X10^3/uL; Basophil% 0.1 % (0-1); Eosinophil# 0.07 X10^3/uL; Eosinophils% 0.6 % (0-5); Hematocrit 33.1 % (37-47); Hemoglobin 9.7 g/dL (12.0-15.0); Lymphocyte # 0.67 X10^3/ul (0.83-4.51); Lymphocyte % 5.8 % (19-41); Mean Corp Hgb Conc 29.3 g/dL (32-36); Mean Corpuscular Hgb 30.6 pg (27.0-32.0); Mean Corpuscular Volume 104.4 fL (81-99); Mean Platelet Vol. 10.8 fl (6.2-12.0); Monocyte# 0.84 X10^3/uL; Monocyte% 7.3 % (0-10); NRBC Flagged by Analyzer 0.6 % (0-5); Neutrophil # 9.69 X10^3/uL (2.7-7.7); Neutrophil % 84.4 % (47-70); Platelet Count 256 K/mm3 (150-450); RBC Distribution Width CV 15.2 % (11.6-14.6); RBC Distribution Width SD 57.4 fl (35.1-43.9); Red Blood Count 3.17 M/mm3 (4.2-5.4); White Blood Count 11.5 K/mm3 (4.4-11.0)
--- NOTE | 2020-10-26 10:40 | RAD_ITS ---
STUDY: X-RAY CHEST REASON FOR EXAM: Female, 85 years old. Dyspnea TECHNIQUE: Single AP portable view of the chest. COMPARISON: Comparison is made with prior study dated 10/22/2020 FINDINGS: EKG electrodes are seen. There is evidence of vascular congestion and CHF. There is no demonstrated pleural abnormality. Sternal cerclage wires and vascular clips are present from a prior sternotomy and coronary artery bypass graft procedure (CABG). Moderate cardiomegaly. Normal mediastinum and damian. Normal visualized pulmonary arteries. There is atherosclerotic calcification of the aortic arch with tortuosity. There are diffuse degenerative changes of the visualized thoracic spine. There is degenerative osteoarthritis of the bilateral shoulders. There is no demonstrated abnormality of the visualized soft tissue structures of the upper abdomen. RAD/Chest 1 View (Portable) IMPRESSION: Cardiomegaly and CHF. Electronically Signed: Sergio Leon MD at 11:03 EDT , Service support ,
[2020-10-26 10:47] LABS: BNP,B-Type NATRIURETIC PEPTIDE 515.6 pg/mL (0-100)
[2020-10-26 10:51] LABS: Base Excess 2 mmol/L (-2 to +2); Bicarbonate 27.6 mmol/L (22-26); Blood Gas Specimen Type ART; FI02 100; O2 Delivery Device NRB; PO2 68 mmHG (75-100); SITE L Brach; SO2 92 % (95-99); Total Carbon Dioxide 29 mmol/L; pCO2 48.2 mmHg (35-45); pH 7.37 (7.35-7.45)
[2020-10-26 10:52] LABS: Anion Gap 8 (5-15); BUN 50 mg/dL (7-18); BUN/Creat Ratio 25.4 RATIO (10-20); Calcium,Total 8.4 mg/dL (8.5-10.1); Chloride 107 mmol/L (98-107); Creatinine, Serum 1.97 mg/dL (0.55-1.02); EST Glomerular Filtration Rate 26 mL/min (>60); Est Glom Filt Rate - Afr Amer 31 mL/min (>60); Estimated Creatinine Clearance 20.67 ml/min; Glucose 212 mg/dL (74-106); Potassium 4.5 mmol/L (3.5-5.1); Sodium Level 142 mmol/L (136-145); Troponin-I HS 69.3 pg/mL (3.0-53.7)
--- NOTE | 2020-10-26 11:48 | ED.VIS.DYS ---
HPI History of Present Illness Chief Complaint: Shortness of Breath Narrative Narrative: 85-year-old female with history of CHF, COPD, ANA, NSTEMI, paroxysmal A. fib presenting with dyspnea. This is an acute on chronic issue. She has lower extremity edema as well. Patient is currently residing at [facility] after her last stay in the hospital for heart failure. She denies any chest pain. She is anticoagulated on Eliquis for history of A. fib. She does admit to some anxiety as well. [facility] Medical History Acute on chronic combined systolic and diastolic heart failure Anemia Atherosclerosis of coronary artery bypass graft without angina pectoris Atherosclerosis of coronary artery of [place] heart without angina pectoris Chronic hypoxemic respiratory failure Chronic renal failure, stage 3 (moderate) Colon polyp Gastric ulcer Ischemic cardiomyopathy Non-rheumatic tricuspid valve insufficiency Nonrheumatic mitral (valve) insufficiency NSTEMI (non-ST elevated myocardial infarction) (10/20/17) Obesity Old anterior wall myocardial infarction ANA (obstructive sleep apnea) Paroxysmal atrial fibrillation Secondary pulmonary arterial hypertension Type 2 diabetes mellitus Home Medications calcium carbonate-vitamin D3 1 ea PO BID 04/19/17 [History Last Taken 09/22/17 12:00] omeprazole 40 mg PO DAILY 04/19/17 [History Last Taken 09/22/17 06:30] apixaban 2.5 mg PO BID tab 10/27/17 [Rx Last Taken Unknown] aspirin 81 mg PO DAILY@0800 tab 10/27/17 [Rx Last Taken Unknown] metoprolol tartrate 25 mg PO BID tab 10/27/17 [Rx Last Taken Unknown] nystatin 100,000 unit/gram topical powder 1 applic TOPICAL BID 02/24/18 [History Last Taken Unknown] amlodipine 10 mg tablet 10 mg PO DAILY 09/08/18 [History Last Taken Unknown] atorvastatin 40 mg tablet 40 mg PO QHS 02/25/19 [History Last Taken Unknown] bisacodyl 10 mg rectal suppository 10 mg RC DAILY PRN PRN 02/25/19 [History Last Taken Unknown] clonidine 0.1 mg/24 hr weekly transdermal patch 1 patch TRANSDERMAL QWEEK 02/25/19 [History Last Taken Unknown] isosorbide mononitrate 60 mg tablet,extended release 24 hr 60 mg PO DAILY 10/05/19 [History Last Taken Unknown] acetaminophen 650 mg PO Q4H PRN PRN 10/11/19 [History Last Taken Unknown] docusate sodium 100 mg PO BID 10/11/19 [History Last Taken Unknown] guaifenesin 10 ml PO Q4H PRN PRN 10/11/19 [History Last Taken Unknown] ipratropium bromide 2 puff IH Q4H PRN PRN 10/11/19 [History Last Taken Unknown] albuterol sulfate 90 mcg/actuation breath activated powder inhaler 2 inh INHALATION Q2H PRN each 08/01/20 [History Last Taken Unknown] dulaglutide 1.5 mg/0.5 mL subcutaneous pen injector 1.5 mg SC QWEEK ml 08/01/20 [History Last Taken Unknown] insulin glargine 100 unit/mL (3 mL) subcutaneous pen 60 unit SUBCUT QHS ml 08/01/20 [History Last Taken Unknown] insulin lispro 100 unit/mL subcutaneous pen See Rx Instructions SUBCUT TIDAC insuln.pen 08/01/20 [History Last Taken Unknown] furosemide 20 mg PO DAILY 10/21/20 [History Last Taken Unknown] furosemide 40 mg PO BREAKFAST 10/21/20 [History Last Taken Unknown] potassium chloride 20 meq PO DAILY 10/21/20 [History Last Taken Unknown] prednisone 40 mg PO DAILY #10 tab 10/23/20 [Rx Last Taken Unknown] Allergy/AdvReac Type Severity Reaction Status Date / Time LEANDER Inhibitors Allergy Unknown Verified 10/26/20 09:56 Family History Other No pertinent family history Surgical History H/O coronary artery bypass surgery History of appendectomy History of left heart catheterization (10/24/17) History of tonsillectomy and adenoidectomy Hx of cholecystectomy Social History Smoking Status: Never smoker alcohol intake: never substance use type: does not use ROS ROS ED Constitutional Constitutional ED: Denies chills or fever(s) Eyes Eyes: Denies blurry vision or diplopia ENT ENT ED: Denies rhinorrhea or sore throat Cardiovascular Cardiovascular: Denies chest pain, palpitations or racing heartbeat Respiratory/Chest Respiratory/Chest: Reports dyspnea and dyspnea on exertion Gastrointestinal Gastrointestinal: Denies abdominal pain, nausea or vomiting Genitourinary Genitourinary ED: Denies dysuria or hematuria Musculoskeletal Musculoskeletal: Denies arthralgias or myalgias Integumentary Denies abscess or rash Neurologic Neurologic: Denies headache(s) or weakness Psychiatric Psychiatric: Denies anxiety or depression EXAM Physical Exam Const Vital Signs: 10/26/20 09:56 10/26/20 10:01 10/26/20 10:02 Temperature 99 F 99 F Temperature Source Temporal Temporal Pulse Rate 89 89 Respiratory Rate 39 H 39 H Respiratory Effort Short of Breath Respiratory Depth Shallow Respiratory Pattern Normal Blood Pressure 191/78 H 191/78 H Blood Pressure Mean 115 115 Pulse Ox 86 86 87 Oxygen Delivery Method Non-Rebreather Non-Rebreather Non-Rebreather Fraction of Inspired Oxygen (FIO2) 10/26/20 10:05 10/26/20 10:14 10/26/20 11:01 Temperature 99 F Temperature Source Temporal Pulse Rate 78 Respiratory Rate 16 Respiratory Effort Respiratory Depth Respiratory Pattern Blood Pressure 179/77 H Blood Pressure Mean 111 Pulse Ox 89 90 93 Oxygen Delivery Method Non-Rebreather Non-Rebreather Non-Rebreather Fraction of Inspired Oxygen (FIO2) 10/26/20 11:46 10/26/20 12:00 10/26/20 12:04 Temperature 99.1 F Temperature Source Temporal Pulse Rate 79 79 79 Respiratory Rate 18 22 H Respiratory Effort Respiratory Depth Respiratory Pattern Normal Blood Pressure 201/78 H 201/78 H Blood Pressure Mean 119 Pulse Ox 97 96 Oxygen Delivery Method Bi-pap Fraction of Inspired Oxygen (FIO2) 85 10/26/20 12:53 10/26/20 13:01 10/26/20 13:24 Temperature 98.9 F Temperature Source Temporal Pulse Rate 77 67 104 H Respiratory Rate 20 H 19 H 26 H Respiratory Effort Respiratory Depth Respiratory Pattern Blood Pressure 205/91 H 167/91 H Blood Pressure Mean 129 116 Pulse Ox 98 97 96 Oxygen Delivery Method Bi-pap Bi-pap Fraction of Inspired Oxygen (FIO2) 40 10/26/20 13:43 Temperature Temperature Source Pulse Rate 93 Respiratory Rate 20 H Respiratory Effort Respiratory Depth Respiratory Pattern Blood Pressure Blood Pressure Mean Pulse Ox 90 Oxygen Delivery Method Fraction of Inspired Oxygen (FIO2) 50 Positive obese General Appearance ED: other Tachypneic and hypoxic Nutritional Appearance: obese HEENT Reports moist mucous membranes Negative for atraumatic Eyes PERRL and EOMs intact bilaterally Neck no lymphadenopathy and supple Resp Auscultation: diminished lung sounds Cardio regular rate Rhythm: abnormal rhythm irregularly irregular GI non-tender Palpation: soft Extremity General Extremety ED: Yes edema; Negative for tenderness General Extremity: edema Neuro CN's II-XII intact bilaterally Sensorium / Orientation: alert Skin Lesions: no lesions Rashes: no rashes MDM MDM MDM Narrative Medical decision making narrative: Patient presented with shortness of breath. She is hypoxic on her baseline oxygen. She was placed on nonrebreather for short while and still remained hypoxic. ABG shows a pH of 7.366, PCO2 of 40.2, PO2 of 67.8. Patient seems to be improved with BiPAP and Nitropaste. Lab work shows her white blood cell count is 11.5, hemoglobin 9.7, hematocrit 33.1. This appears to be at baseline. Creatinine is 1.97 which appears to be near baseline as well. BNP is 515.6 and high-sensitivity troponin is 69.3. Since the patient is not experiencing chest pain this is likely due to heart strain and CHF. Chest x-ray is interpreted by myself shows pulmonary vascular congestion and cardiomegaly and the radiologist does agree. EKG is atrial fibrillation at 80 bpm without signs of ST elevation or depression as interpreted by myself. Patient was given Lasix and Nitropaste was placed on her chest. She was discussed with the hospitalist who is amenable to admission and treatment for CHF. Impression: 1. CHF exacerbation 2. Hypoxic hypercapnic respiratory failure Lab Data Attestation: I reviewed the patient's lab results. Labs: Laboratory Results - last 24 hr 10/26/20 10/26/20 10/26/20 10:15 10:15 10:15 WBC 11.5 H RBC 3.17 L Hgb 9.7 L Hct 33.1 L MCV 104.4 H MCH 30.6 MCHC 29.3 L RDW Std Deviation 57.4 H RDW Coeff of Deepali 15.2 H Plt Count 256 MPV 10.8 Immature Gran % (Auto) 1.800 H Neut % (Auto) 84.4 H Lymph % (Auto) 5.[address] [place] [place] % (Auto) 7.3 Eos % (Auto) 0.6 Baso % (Auto) 0.1 Absolute Neuts (auto) 9.7 H Absolute Lymphs (auto) 0.67 L Nucleated RBC % 0.6 Sodium 142 Potassium 4.5 Chloride 107 Carbon Dioxide 27.0 Anion Gap 8 BUN 50 H Creatinine 1.97 H Estim Creat Clear Calc 20.67 Est GFR (MDRD) Af Amer 31 L Est GFR (MDRD) Non-Af 26 L BUN/Creatinine Ratio 25.4 H Glucose 212 H Calcium 8.4 L Troponin I High Sens 69.3 H* B-Natriuretic Peptide 515.6 H ABG Data ABG results: ABG 10/26/20 10:45 Specimen Type ART Sample Site L Brach pH 7.37 Bicarbonate Actual 27.6 H Total CO2 29 Base Excess 2 O2 Saturation 92 L O2 % 100 ABG pCO2 48.2 H ABG pO2 68 L Skyler Test N/A O2 Delivery Device NRB Radiography Diagnostic Testing: Radiology Impression Chest X-Ray 10/26/20 10:40 IMPRESSION: Cardiomegaly and CHF. Electronically Signed: Sergio Leon MD at 11:03 EDT , Service support , Discharge Plan Triage Chief Complaint: Shortness of Breath ED Provider: Chidi Forbes Dx/Rx/DC Orders Prescriptions: No Action nystatin 100,000 unit/gram powder 1 applic TOPICAL BID RF: 0 amlodipine 10 mg tablet 10 mg PO DAILY RF: 0 atorvastatin 40 mg tablet 40 mg PO QHS RF: 0 bisacodyl 10 mg suppository 10 mg RC DAILY PRN PRN (Reason: Constipation) RF: 0 clonidine 0.1 mg/24 hr patch weekly 1 patch transdermal QWEEK RF: 0 isosorbide mononitrate 60 mg tablet extended release 24 hr 60 mg PO DAILY RF: 0 albuterol sulfate 90 mcg/actuation aerosol powdr breath activated 2 inh INHALATION Q2H PRN (Reason: Shortness Of Breath) RF: 0 insulin glargine 100 unit/mL (3 mL) insulin pen 60 unit subcut QHS RF: 0 insulin lispro 100 unit/mL insulin pen See Rx Instructions subcut TIDAC RF: 0 dulaglutide 1.5 mg/0.5 mL pen injector 1.5 mg SC QWEEK RF: 0 omeprazole 40 MG capsule,delayed release(DR/EC) 40 mg PO DAILY RF: 0 calcium carbonate-vitamin D3 1 EACH tablet 1 ea PO BID RF: 0 aspirin 81 MG tablet 81 mg PO DAILY@0800 RF: 0 metoprolol tartrate 25 MG tablet 25 mg PO BID RF: 0 apixaban 2.5 MG tablet 2.5 mg PO BID RF: 0 ipratropium bromide 12.9 GM HFA aerosol inhaler 2 puff IH Q4H PRN PRN (Reason: Sob &/Or Wheezing) RF: 0 docusate sodium 100 MG capsule 100 mg PO BID RF: 0 acetaminophen 325 MG tablet 650 mg PO Q4H PRN PRN (Reason: Mild Pain (scale 0-3)/T>100.7) RF: 0 guaifenesin 10 ML liquid 10 ml PO Q4H PRN PRN (Reason: Cough) RF: 0 potassium chloride 20 mEq tablet,ER particles/crystals 20 meq PO DAILY RF: 0 furosemide 20 mg tablet 20 mg PO DAILY RF: 0 furosemide 40 mg tablet 40 mg PO BREAKFAST RF: 0 Hold Instructions: Resume on 11/06/20. Resume after cleared by your Primary care provider. prednisone 20 mg tablet 40 mg PO DAILY Qty: 10 RF: 0 Primary Care Provider: Bladimir Orlando
[2020-10-26] MEDS: Nitroglycerin Oint 1 INCH PACKET TD (12:04)
[2020-10-26] MEDS: Furosemide 40 MG/4 ML Vial IV (12:04)
--- NOTE | 2020-10-26 12:20 | HP.PCM.HOS_ITS ---
HPI - General General Date of Admission: 10/26/20 HPI Narrative SABRINA GONZALEZ, is a 85 F who presented to the emergency department at [facility] on 10/26/2020 from [facility] with dyspnea. The patient has had 3 hospitalizations this month all related to acute hypoxic respiratory failure. 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 She had an EF of 55% with stage III diastolic dysfunction and severe pulmonary artery hypertension with a pulmonary artery systolic pressure of 70 mmHg. She seemingly goes to the cycle where she gets admitted here is treated is on nasal cannula and returns [facility] her [facility] and returns fairly soon with acute hypoxic respiratory failure. Upon presentation in the emergency department she was afebrile but hypertensive with systolic pressures anywhere from 190s to 200s tachypneic with respiratory rates in the 30s and hypoxic with an oxygen saturation of 86% on a nonrebreather. She is a mild leukocytosis but this seems to ebb and flow. She has been on steroids. The rest of her CBC remained stable when compared to 10/23/2020. Coagulation studies are within normal limits. An ABG showed a pH of 7.37 with the PCO2 of 48.2 a PO2 of 68 and an oxygen saturation of 92% on a nonrebreather. Her BMP shows mildly worsening creatinine. Her baseline creatinine appears to be 1.5-1.8. Her BNP is elevated although remains lower than she has been previously. And her troponin is elevated at 69.3. Her EKG shows no acute ST-T wave changes. Her chest x-ray shows no infiltrates and only is pertinent for CHF and cardiomegaly although does not look that different from her previous chest x-ray on 10/22/2020. She has not had a recent CT of her chest. She will be admitted to PCU for further work-up. [facility] Medical History (Updated 10/26/20 @ 14:53 by Raya Geller) Acute on chronic combined systolic and diastolic heart failure Acute respiratory failure Acute respiratory failure with hypercapnia Anemia Anemia Angina pectoris Atherosclerosis of coronary artery bypass graft Atherosclerosis of coronary artery bypass graft without angina pectoris Atherosclerosis of coronary artery of [place] heart without angina pectoris Atrial fibrillation CHF (congestive heart failure) Chronic gastric ulcer with bleeding and perforation Chronic hypoxemic respiratory failure Chronic renal failure, stage 3 (moderate) CKD (chronic kidney disease) stage 3, GFR 30-59 ml/min Colon polyp COPD (chronic obstructive pulmonary disease) Diabetes Dysphagia Gastric ulcer HTN (hypertension) Hyperkalemia Ischemic cardiomyopathy Major depressive disorder Muscle weakness Non-rheumatic tricuspid valve insufficiency Non-ST elevation (NSTEMI) myocardial infarction Nonrheumatic mitral (valve) insufficiency NSTEMI (non-ST elevated myocardial infarction) (10/20/17) Obesity Old anterior wall myocardial infarction ANA (obstructive sleep apnea) Paroxysmal atrial fibrillation Secondary pulmonary arterial hypertension Sleep apnea Type 2 diabetes mellitus Unsteady gait Wheezing Home Medications calcium carbonate-vitamin D3 1 ea PO DAILY 04/19/17 [History Last Taken 10/26/20] omeprazole 40 mg PO DAILY 04/19/17 [History Last Taken 10/26/20] aspirin 81 mg PO DAILY@0800 tab 10/27/17 [Rx Last Taken 10/25/20] metoprolol tartrate 25 mg PO BID tab 10/27/17 [Rx Last Taken 10/25/20] amlodipine 10 mg tablet 10 mg PO DAILY 09/08/18 [History Last Taken 10/25/20] atorvastatin 40 mg tablet 40 mg PO QHS 02/25/19 [History Last Taken 10/25/20] clonidine 0.1 mg/24 hr weekly transdermal patch 1 patch TRANSDERMAL WE 02/25/19 [History Last Taken 10/25/20] isosorbide mononitrate 60 mg tablet,extended release 24 hr 60 mg PO DAILY 10/05/19 [History Last Taken 10/25/20] acetaminophen 650 mg PO Q4H PRN PRN 10/11/19 [History Last Taken 10/24/20] docusate sodium 100 mg PO BID 10/11/19 [History Last Taken 10/25/20] albuterol sulfate 90 mcg/actuation breath activated powder inhaler 2 inh INHALATION Q2H PRN each 08/01/20 [History Last Taken 10/25/20] dulaglutide 1.5 mg/0.5 mL subcutaneous pen injector 1.5 mg SC SA ml 08/01/20 [History Last Taken Unknown] insulin glargine 100 unit/mL (3 mL) subcutaneous pen 60 unit SUBCUT QHS ml 08/01/20 [History Last Taken 10/25/20] insulin lispro 100 unit/mL subcutaneous pen See Rx Instructions SUBCUT TIDAC insuln.pen 08/01/20 [History Last Taken 10/25/20] furosemide 20 mg PO DAILY 10/21/20 [History Last Taken 10/25/20] potassium chloride 20 meq PO DAILY 10/21/20 [History Last Taken 10/25/20] prednisone 40 mg PO DAILY #10 tab 10/23/20 [Rx Last Taken 10/25/20] apixaban 2.5 mg PO BID 10/26/20 [History Last Taken 10/25/20] ipratropium-albuterol 3 ml INHALATION Q4H PRN 10/26/20 [History Last Taken 10/26/20] Allergy/AdvReac Type Severity Reaction Status Date / Time LEANDER Inhibitors Allergy Unknown Verified 10/26/20 09:56 Family History Other No pertinent family history Surgical History H/O coronary artery bypass surgery History of appendectomy History of left heart catheterization (10/24/17) History of tonsillectomy and adenoidectomy Hx of cholecystectomy Social History Smoking Status: Never smoker alcohol intake: never substance use type: does not use ROS Review of Systems ROS Unobtainable: other Details: Patient is currently on BiPAP and unable to talk Constitutional Constitutional: Reports other Vital Signs Vital Signs Vital Signs: 10/26/20 09:56 10/26/20 10:01 10/26/20 10:02 Temperature 99 F 99 F Temperature Source Temporal Temporal Pulse Rate 89 89 Respiratory Rate 39 H 39 H Respiratory Effort Short of Breath Respiratory Depth Shallow Respiratory Pattern Normal Blood Pressure 191/78 H 191/78 H Blood Pressure Mean 115 115 Pulse Ox 86 86 87 Oxygen Delivery Method Non-Rebreather Non-Rebreather Non-Rebreather Fraction of Inspired Oxygen (FIO2) 10/26/20 10:05 10/26/20 10:14 10/26/20 11:01 Temperature 99 F Temperature Source Temporal Pulse Rate 78 Respiratory Rate 16 Respiratory Effort Respiratory Depth Respiratory Pattern Blood Pressure 179/77 H Blood Pressure Mean 111 Pulse Ox 89 90 93 Oxygen Delivery Method Non-Rebreather Non-Rebreather Non-Rebreather Fraction of Inspired Oxygen (FIO2) 10/26/20 11:46 10/26/20 12:00 10/26/20 12:04 Temperature 99.1 F Temperature Source Temporal Pulse Rate 79 79 79 Respiratory Rate 18 22 H Respiratory Effort Respiratory Depth Respiratory Pattern Normal Blood Pressure 201/78 H 201/78 H Blood Pressure Mean 119 Pulse Ox 97 96 Oxygen Delivery Method Bi-pap Fraction of Inspired Oxygen (FIO2) 85 Weight Weight: 106.3 kg Body Mass Index (BMI) 36.7 Physical Exam Const Constitutional Narrative: Morbidly obese white female lying in bed, appears calm and currently on noninvasive ventilation HEENT normocephalic and moist oral mucous membranes HEENT Narrative: Markedly SUN'AQ Mouth: oral and palatal mucosa normal Eyes PERRL, EOMs intact bilaterally and conjunctivae normal Neck no lymphadenopathy, supple and no carotid bruits Neck Narrative: Positive JVD Resp no retractions and no use of accessory muscles Resp Narrative: Diffusely diminished, few basilar crackles Auscultation: crackles; Negative for rales, rhonchi or wheezes Cardio regular rate, regular rhythm, S1 normal heart sound, S2 normal heart sound, no murmurs and no rub; Negative for no gallops Cardio Narrative: S4 gallop GI normal to inspection, nondistended, normoactive bowel sounds, soft to palpation, non-tender and non-distended Extremity Extremity Narrative: 2+ bilateral lower extremity pitting, no cyanosis or clubbing Peripheral Pulses: Yes pulses 2+ throughout Skin no rashes or lesions noted, no wounds, skin turgor normal, no jaundice, no petechiae and no mottling Neuro moves all extremities Neuro Narrative: Follows commands but unable to communicate secondary to respiratory status, moves all extremities Sensorium / Orientation: awake and alert Results Lab / Micro Data Result Diagrams: 10/26/20 10:15 10/26/20 10:15 Labs: Laboratory Results - last 24 hr 10/26/20 10:15: WBC 11.5 H, RBC 3.17 L, Hgb 9.7 L, Hct 33.1 L, MCV 104.4 H, MCH 30.6, MCHC 29.3 L, RDW Std Deviation 57.4 H, RDW Coeff of Deepali 15.2 H, Plt Count 256, MPV 10.8, Immature Gran % (Auto) 1.800 H, Neut % (Auto) 84.4 H, Lymph % (Auto) 5.8 L, Mcmullen % (Auto) 7.3, Eos % (Auto) 0.6, Baso % (Auto) 0.1, Absolute Neuts (auto) 9.7 H, Absolute Lymphs (auto) 0.67 L, Nucleated RBC % 0.6 10/26/20 10:15: Sodium 142, Potassium 4.5, Chloride 107, Carbon Dioxide 27.0, Anion Gap 8, BUN 50 H, Creatinine 1.97 H, Estim Creat Clear Calc 20.67, Est GFR (MDRD) Af Amer 31 L, Est GFR (MDRD) Non-Af 26 L, BUN/Creatinine Ratio 25.4 H, Glucose 212 H, Calcium 8.4 L, Troponin I High Sens 69.3 H* 10/26/20 10:15: B-Natriuretic Peptide 515.6 H ABG Data ABG results: ABG 10/26/20 10:45 Specimen Type ART Sample Site L Brach pH 7.37 Bicarbonate Actual 27.6 H Total CO2 29 Base Excess 2 O2 Saturation 92 L O2 % 100 ABG pCO2 48.2 H ABG pO2 68 L Skyler Test N/A O2 Delivery Device NRB Radiology Impression Chest X-Ray 10/26/20 10:40 IMPRESSION: Cardiomegaly and CHF. Electronically Signed: Sergio Leon MD at 11:03 EDT , Service support , Assessment & Plan Assessment/Plan (1) Acute on chronic respiratory failure with hypoxemia: (2) Shortness of breath: (3) Pulmonary artery hypertension: (4) Acute on chronic diastolic (congestive) heart failure: (5) ANA (obstructive sleep apnea): (6) Elevated troponin I level: PLAN: Acute on chronic hypoxic respiratory failure secondary to HFpEF secondary to RV failure/severe PAH -Patient had recent echo on 10/23/2020--> EF 55% with mild segmental systolic dysfunction, stage III diastolic dysfunction, severe pulmonary artery hypertension with a pulmonary artery systolic pressure of 70 mmHg -We will do Lasix 80 mg twice daily to start this evening--> was given 40 mg IV push in the emergency department -BNP is elevated relatively stable and less that it has been in the past -Elevated blood pressures may be playing into this -Will continue home medications and add Nitropaste -Patient is O2 dependent at baseline and on 2 L nasal cannula -She is requiring BiPAP at this time -Patient does not appear to be chronically hypercapnic at baseline and would recommend keeping oxygen saturations at 92% and greater -Continue fluid restriction -Continue prednisone but wean--> doubt any obstructive component -Continue pulmonary toilet -Anxiety does seem to play a role in her shortness of breath -Did well with Ativan at her last admission -Ativan 1 mg 3 times daily scheduled with hold parameters for sedation -Patient may benefit from morphine for symptomatic dyspnea -Reconsult palliative care--> they did see her on the day of discharge Hypertensive emergency -Continue home medications for blood pressure -Start Nitropaste -Monitor blood pressure closely -I suspect if we can improve her respiratory status this may improve as well -Lasix 40 mg IV push given in the emergency department and will start 80 mg twice daily this evening Troponin elevation -Suspect stress-induced ischemia -Patient does have wall motion abnormalities on her echocardiogram but this appe ars chronic -No EKG changes consistent with acute ischemia -Cycle cardiac enzymes -Continue home medication Decompensated HFpEF secondary to severe diastolic dysfunction/PAH -Lasix given in ED -Start Lasix IV push 80 mg twice daily this evening -BiPAP -Blood pressure control -Patient would benefit from a slower heart rate given her severe diastolic dysfunction -We will monitor and consider increasing her beta-joan LANDRY on CKD stage IIIb -Serum creatinine is up to 1.97 today -Baseline serum creatinine appears to be 1.5-1.8 -Monitor closely while on Lasix CAD/HTN/HPL/PAF -Blood pressures are markedly elevated likely contributing to her heart failure -Add hydralazine 50 mg 4 times daily--> patient has LEANDER inhibitor allergy -Continue aspirin -Continue amlodipine 10 mg daily -Continue atorvastatin 40 mg nightly -Continue clonidine patch 0.1 mcg per patch weekly -Continue isosorbide mononitrate 60 mg daily -Continue metoprolol 25 mg twice daily -Hold home Lasix -Patient in normal sinus rhythm -Continue Eliquis GERD -Continue PPI DM-2 -Blood sugars elevated with steroids -We will continue to monitor as her blood sugar should improve with weaning of steroids -No changes in current regimen -Continue Accu-Cheks -Continue carb controlled cardiac diet ANA -BiPAP for now but then transition to CPAP nightly with 13 mmHg and 2 L nasal cannula bleed Morbid obesity -Recommend weight loss -Contributes overall difficulty with treatment and prognosis DVT prophylaxis -Continue apixaban CODE STATUS -Full code Charges/Coding Visit Charges Inpatient E&M: 29511 Init Hosp L3
[2020-10-26] MEDS: Labetalol 100 MG/20 ML Vial 40 MG IV (12:58)
[2020-10-26] MEDS: LORazepam 1 MG Tablet PO ×2 (15:35→22:12)
[2020-10-26 16:50] LABS: Bedside Glucose 107 mg/dL (70-110)
--- NOTE | 2020-10-26 17:04 | CHAPLAIN ---
Type of Pastoral Visit _x__ Initial Visit ___ Follow-up Visit ___ On-call Visit ___ General Patient Visit ___ Spiritual Assessment ___ Family Conference ___ Bereavement ___ Rapid Response ___ Code Blue ___ Other (describe below) Pastoral Care Referral From _x__ Patient ___ Family ___ Nurse ___ Physician ___ Pbx Technician ___ Barratte Operator ___ Other (describe below) Sacrament/Intervention ___ Active listening ___ Anointing ___ Advent ___ Bereavement ___ Communion ___ Roberta exploration ___ ___ Life review _x__ Prayer ___ Reconciliation ___ Sacrament of Sick _x__ Supportive presence ___ Wedding ___ Other (describe below) Pastoral Comments patient is a readmit and has been seen on previous admission; pt welcomes prayer; pt is on Bi-Pap at this time so talking is very limited; however pt states that God has been helping and that she knows God and has given God her life;
[2020-10-26 17:20] LABS: Troponin-I HS 87.6 pg/mL (3.0-53.7)
--- NOTE | 2020-10-26 17:55 | NURSING ---
dr gonzalez aware of 2nd trop of 87.6. order to hold 1800 iv lasix since had 40 in ed.
[2020-10-26 20:31] LABS: Troponin-I HS 82.6 pg/mL (3.0-53.7)
[2020-10-26] MEDS: Calcium Carb/Vitamin D 1 TABLET Tablet PO (22:12)
[2020-10-26] MEDS: Atorvastatin Calcium 40 MG Tablet PO (22:12)
[2020-10-26] MEDS: Metoprolol Tartrate 25 MG Tablet PO (22:12)
[2020-10-26] MEDS: APIXABAN 2.5 MG TABLET PO (22:13)
[2020-10-26] MEDS: Nystatin Powder 15gm Bottle 1 APPLIC TOPICAL (22:17)
[2020-10-26 22:50] LABS: Bedside Glucose 193 mg/dL (70-110)
[2020-10-26] MEDS: Ipratropium/Albuterol Sulfate 3 ML AMPUL.NEB INHALATION (23:05)
[2020-10-27] VITALS (14 sets, daily range): BP systolic 154–167; BP diastolic 61–79; PULSE 56–74; RESP 12–24; TEMP 36.4–36.7; O2SAT 93–98
[2020-10-27] MEDS: LORazepam 1 MG Tablet PO ×2 (06:36→13:19)
[2020-10-27 06:44] LABS: Absolute Lymphocyte Count 0.56 X10^3/uL (0.83-4.51); Absolute Neutrophil Count 10.1 X10^3/uL (2.0-7.7); Basophil# 0.01 X10^3/uL; Basophil% 0.1 % (0-1); Eosinophil# 0.15 X10^3/uL; Eosinophils% 1.3 % (0-5); Hematocrit 30.9 % (37-47); Hemoglobin 8.9 g/dL (12.0-15.0); Lymphocyte # 0.56 X10^3/ul (0.83-4.51); Lymphocyte % 4.8 % (19-41); Mean Corp Hgb Conc 28.8 g/dL (32-36); Mean Platelet Vol. 11.4 fl (6.2-12.0); Monocyte# 0.91 X10^3/uL; Monocyte% 7.7 % (0-10); NRBC Flagged by Analyzer 0.2 % (0-5); Neutrophil # 10.08 X10^3/uL (2.7-7.7); Neutrophil % 85.7 % (47-70); POSITIVE DIFFERENTIAL YES; Platelet Count 195 K/mm3 (150-450); RBC Distribution Width CV 14.9 % (11.6-14.6); RBC Distribution Width SD 57.1 fl (35.1-43.9); Red Blood Count 2.97 M/mm3 (4.2-5.4); White Blood Count 11.8 K/mm3 (4.4-11.0)
[2020-10-27 06:45] LABS: Differential Indicated SCAN CRITERIA MET
[2020-10-27] MEDS: Ipratropium/Albuterol Sulfate 3 ML AMPUL.NEB INHALATION ×3 (06:54→14:23)
[2020-10-27 07:22] LABS: ALB/GLOB Ratio 0.6 RATIO (0.9-2.4); AST(SGOT) 26 U/L (15-37); Alanine Aminotransfer ALT/SGPT 27 U/L (13-56); Albumin, Serum 2.4 g/dL (3.2-5.0); Alkaline Phosphatase 95 U/L (45-117); Anion Gap 5 (5-15); BUN 48 mg/dL (7-18); BUN/Creat Ratio 30.2 RATIO (10-20); Calcium,Total 8.4 mg/dL (8.5-10.1); Chloride 109 mmol/L (98-107); Creatinine, Serum 1.59 mg/dL (0.55-1.02); EST Glomerular Filtration Rate 33 mL/min (>60); Est Glom Filt Rate - Afr Amer 40 mL/min (>60); Estimated Creatinine Clearance 25.61 ml/min; Glucose 118 mg/dL (74-106); Magnesium 2.6 mg/dL (1.6-2.6); Phosphorus 2.8 mg/dL (2.5-4.9); Potassium 4.4 mmol/L (3.5-5.1); Protein, Total 6.4 g/dL (6.4-8.2); Sodium Level 145 mmol/L (136-145); Thyroid Stim Hormone (TSH) 0.85 uIU/mL (0.358-3.74)
--- NOTE | 2020-10-27 07:29 | CON.PCM.CC_ITS ---
Assessment & Plan Assessment/Plan (1) Acute on chronic respiratory failure with hypoxemia: PLAN: RECOMMENDATIONS: 1. Continue diuretic therapy as tolerated by hemodynamics and renal function. 2. Consultation placed to cardiology. 3. Wean supplemental oxygen as tolerated. 4. Recommend nocturnal CPAP therapy with a pressure support of 13 cm of water, per outpatient recommendations. 5. The patient can be scheduled to follow-up in the pulmonary medicine clinic in 2 weeks. 6. Will sign off. Please call with any additional questions. IMPRESSIONS: 1. Acute on chronic hypoxemic respiratory failure Likely secondary to decompensated heart failure with preserved ejection fraction/flash pulmonary edema in the setting of hypertensive urgency. The patient did respond clinically to diuretics and noninvasive positive pressure ventilatory support. She is currently maintaining appropriate oxygen saturations on 3 L/min, which is her baseline requirement. Given that the patient has had recurrent admissions for decompensated heart failure, I have placed a consultation to cardiology for further medical optimization and to facilitate scheduling a follow-up cardiology office visit. 2. Obstructive sleep apnea Continue nocturnal CPAP therapy with a pressure support of 13 cm of water, per outpatient recommendations. 3. History of ischemic cardiomyopathy/paroxysmal atrial fibrillation/congestive heart failure Continue current medical management. Consider placing cardiology consultation for further management. This note was generated with [employer] dictation software. It may contain incorrect words, spelling, and punctuation that were not noted in checking the note before signing. HPI Consult Data Date of Consult: 10/27/20 HPI Narrative Reason for Consultation: Acute on chronic hypoxemic respiratory failure HPI Narrative: The patient is an 85-year-old female, with a history as outlined below, who presented to the emergency department on October 26 from [facility] with worsening dyspnea. The patient was just discharged from the hospital after being admitted for 2 days on October 23 with acute on chronic respiratory failure felt to be secondary to heart failure with preserved eje ction fraction. Surface echocardiogram obtained during that hospitalization revealed an ejection fraction of 55% with mild segmental systolic dysfunction, stage III diastolic dysfunction and a pulmonary artery systolic pressure estimated to be 70 mmHg. The patient has a known history of obstructive sleep apnea, coronary artery disease status post CABG, paroxysmal atrial fibrillation, congestive heart failure and pulmonary hypertension. She is currently followed by Dr. Michelle in the cardiology clinic. The patient was last seen in the pulmonary medicine clinic in November 2019, at which time, she was noted to have recently been placed on nocturnal CPAP with a pressure support of 13 cm of water . However, given that the patient currently resides in a correction facility, there is no way to know for certain how compliant she is with therapy. On presentation to the emergency department, the patient was noted to be hypertensive with a blood pressure of 191/78 mmHg. She was tachypneic and hypoxemic. Initial laboratory evaluation revealed an elevated white blood cell count to 12,000. Chemistry profile revealed a creatinine of 1.97. Chest x-ray revealed stigmata of congestive heart failure. Troponin was elevated to 70. BNP was increased to 515. The patient was placed on Lasix and subsequently admitted to the progressive care unit for further management. [facility] Medical History Acute on chronic combined systolic and diastolic heart failure Acute respiratory failure Acute respiratory failure with hypercapnia Anemia Anemia Angina pectoris Atherosclerosis of coronary artery bypass graft Atherosclerosis of coronary artery bypass graft without angina pectoris Atherosclerosis of coronary artery of [place] heart without angina pectoris Atrial fibrillation CHF (congestive heart failure) Chronic gastric ulcer with bleeding and perforation Chronic hypoxemic respiratory failure Chronic renal failure, stage 3 (moderate) CKD (chronic kidney disease) stage 3, GFR 30-59 ml/min Colon polyp COPD (chronic obstructive pulmonary disease) Diabetes Dysphagia Gastric ulcer HTN (hypertension) Hyperkalemia Ischemic cardiomyopathy Major depressive disorder Muscle weakness Non-rheumatic tricuspid valve insufficiency Non-ST elevation (NSTEMI) myocardial infarction Nonrheumatic mitral (valve) insufficiency NSTEMI (non-ST elevated myocardial infarction) (10/20/17) Obesity Old anterior wall myocardial infarction ANA (obstructive sleep apnea) Paroxysmal atrial fibrillation Secondary pulmonary arterial hypertension Sleep apnea Type 2 diabetes mellitus Unsteady gait Wheezing Home Medications calcium carbonate-vitamin D3 1 ea PO DAILY 04/19/17 [History Last Taken 10/26/20] omeprazole 40 mg PO DAILY 04/19/17 [History Last Taken 10/26/20] aspirin 81 mg PO DAILY@0800 tab 10/27/17 [Rx Last Taken 10/25/20] metoprolol tartrate 25 mg PO BID tab 10/27/17 [Rx Last Taken 10/25/20] amlodipine 10 mg tablet 10 mg PO DAILY 09/08/18 [History Last Taken 10/25/20] atorvastatin 40 mg tablet 40 mg PO QHS 02/25/19 [History Last Taken 10/25/20] clonidine 0.1 mg/24 hr weekly transdermal patch 1 patch TRANSDERMAL WE 02/25/19 [History Last Taken 10/25/20] isosorbide mononitrate 60 mg tablet,extended release 24 hr 60 mg PO DAILY 10/05/19 [History Last Taken 10/25/20] acetaminophen 650 mg PO Q4H PRN PRN 10/11/19 [History Last Taken 10/24/20] docusate sodium 100 mg PO BID 10/11/19 [History Last Taken 10/25/20] albuterol sulfate 90 mcg/actuation breath activated powder inhaler 2 inh INHALATION Q2H PRN each 08/01/20 [History Last Taken 10/25/20] dulaglutide 1.5 mg/0.5 mL subcutaneous pen injector 1.5 mg SC SA ml 08/01/20 [History Last Taken Unknown] insulin glargine 100 unit/mL (3 mL) subcutaneous pen 60 unit SUBCUT QHS ml 08/01/20 [History Last Taken 10/25/20] insulin lispro 100 unit/mL subcutaneous pen See Rx Instructions SUBCUT TIDAC insuln.pen 08/01/20 [History Last Taken 10/25/20] furosemide 20 mg PO DAILY 10/21/20 [History Last Taken 10/25/20] potassium chloride 20 meq PO DAILY 10/21/20 [History Last Taken 10/25/20] prednisone 40 mg PO DAILY #10 tab 10/23/20 [Rx Last Taken 10/25/20] apixaban 2.5 mg PO BID 10/26/20 [History Last Taken 10/25/20] ipratropium-albuterol 3 ml INHALATION Q4H PRN 10/26/20 [History Last Taken 10/26/20] Allergy/AdvReac Type Severity Reaction Status Date / Time LEANDER Inhibitors Allergy Unknown Verified 10/26/20 09:56 Family History Other No pertinent family history Surgical History H/O coronary artery bypass surgery History of appendectomy History of left heart catheterization (10/24/17) History of tonsillectomy and adenoidectomy Hx of cholecystectomy Social History Smoking Status: Never smoker alcohol intake: never substance use type: does not use ROS Constitutional Constitutional: Reports fatigue; Denies chills or fever(s) Eyes Eyes: Denies blurry vision or change in vision ENT HEENT: Denies dizziness, dysphagia, loss taste/smell or nasal congestion Cardiovascular Cardiovascular: Reports dyspnea and edema; Denies chest pain Respiratory/Chest Respiratory/Chest: Reports dyspnea; Denies cough or hemoptysis Gastrointestinal Gastrointestinal: Denies abdominal pain, diarrhea or vomiting Genitourinary Genitourinary: Denies difficulty urinating Musculoskeletal Musculoskeletal: Denies arthralgias or back pain Integumentary Integumentary: Denies lesions, rash or skin ulcer Neurologic Neurologic: Denies abnormal gait Psychiatric Psychiatric: Denies anxiety Endocrine Endocrinology: Reports fatigue Hematologic/Lymphatic Hematologic/Lymphatic: Denies easy bleeding or easy bruising Physical Exam Const alert and no apparent distress Nutritional Appearance: morbidly obese HEENT normocephalic and head/scalp atraumatic General Ear: hearing grossly impaired Eyes PERRL and EOMs intact bilaterally Neck supple General: trachea midline Resp Auscultation: diminished lung sounds; Negative for rales, rhonchi or wheezes Cardio regular rate and regular rhythm GI normal to inspection, nondistended, normoactive bowel sounds Extremity General Extremity: edema bilateral lower extremity; Negative for clubbing Skin no rashes or lesions noted Neuro no focal motor deficits Psych Mood & Affect: flat affect Lab / Micro Data Result Diagrams: 10/27/20 05:25 10/27/20 05:25 Labs: Laboratory Results - last 24 hr 10/26/20 10:15: WBC 11.5 H, RBC 3.17 L, Hgb 9.7 L, Hct 33.1 L, MCV 104.4 H, MCH 30.6, MCHC 29.3 L, RDW Std Deviation 57.4 H, RDW Coeff of Deepali 15.2 H, Plt Count 256, MPV 10.8, Immature Gran % (Auto) 1.800 H, Neut % (Auto) 84.4 H, Lymph % (Auto) 5.8 L, [place] % (Auto) 7.3, Eos % (Auto) 0.6, Baso % (Auto) 0.1, Absolute Neuts (auto) 9.7 H, Absolute Lymphs (auto) 0.67 L, Nucleated RBC % 0.6 10/26/20 10:15: Sodium 142, Potassium 4.5, Chloride 107, Carbon Dioxide 27.0, Anion Gap 8, BUN 50 H, Creatinine 1.97 H, Estim Creat Clear Calc 20.67, Est GFR (MDRD) Af Amer 31 L, Est GFR (MDRD) Non-Af 26 L, BUN/Creatinine Ratio 25.4 H, Glucose 212 H, Calcium 8.4 L, Troponin I High Sens 69.3 H* 10/26/20 10:15: B-Natriuretic Peptide 515.6 H 10/26/20 16:24: Troponin I High Sens 87.6 H* 10/26/20 16:46: POC Glucose 107 10/26/20 19:40: Troponin I High Sens 82.6 H* 10/26/20 22:14: POC Glucose 193 H 10/27/20 05:25: WBC 11.8 H, RBC 2.97 L, Hgb 8.9 L, Hct 30.9 L, MCV 104.0 H, MCH 30.0, MCHC 28.8 L, RDW Std Deviation 57.1 H, RDW Coeff of Deepali 14.9 H, Plt Count 195, MPV 11.4, Immature Gran % (Auto) 0.400, Neut % (Auto) 85.7 H, Lymph % (Auto) 4.8 L, [place] % (Auto) 7.7, Eos % (Auto) 1.3, Baso % (Auto) 0.1, Absolute Neuts (auto) 10.1 H, Absolute Lymphs (auto) 0.56 L, Nucleated RBC % 0.2 10/27/20 05:25: Sodium 145, Potassium 4.4, Chloride 109 H, Carbon Dioxide 31.0, Anion Gap 5, BUN 48 H, Creatinine 1.59 H, Estim Creat Clear Calc 25.61, Est GFR (MDRD) Af Amer 40 L, Est GFR (MDRD) Non-Af 33 L, BUN/Creatinine Ratio 30.2 H, Glucose 118 H, Calcium 8.4 L, Phosphorus 2.8, Magnesium 2.6, Total Bilirubin 0.80, AST 26, ALT 27, Alkaline Phosphatase 95, Total Protein 6.4, Albumin 2.4 L, Globulin 4.0, Albumin/Globulin Ratio 0.6 L, TSH 0.85 ABG Data ABG results: ABG 10/26/20 10:45 Specimen Type ART Sample Site L Brach pH 7.37 Bicarbonate Actual 27.6 H Total CO2 29 Base Excess 2 O2 Saturation 92 L O2 % 100 ABG pCO2 48.2 H ABG pO2 68 L Skyler Test N/A O2 Delivery Device NRB Radiology Impression Chest X-Ray 10/26/20 10:40 IMPRESSION: Cardiomegaly and CHF. Electronically Signed: Sergio Leon MD at 11:03 EDT , Service support , Charges/Coding Visit Charges Inpatient E&M: 76456 Init Hosp L3
[2020-10-27] MEDS: Aspirin E.C. 81 MG Tablet PO (07:43)
[2020-10-27] MEDS: Insulin Lispro 100 UNIT/ML INSULN.PEN 10 UNIT SC (07:43)
[2020-10-27 07:50] LABS: Bedside Glucose 122 mg/dL (70-110)
--- NOTE | 2020-10-27 08:51 | HP.PCM.PAL_ITS ---
HPI - General General Date of Admission: 10/26/20 HPI Narrative SABRINA GONZALEZ, is a 85 F who presents back to the ER from [facility] on 10/26/2020. This is the third hospitalization this month to hypoxic respiratory failure. Continues to be related to heart failure with preserved ejection fraction secondary to failure to pulmonary artery hypertension confirmed by echo on 10/23/2020. EF 55% with diastolic dysfunction and severe pulmonary artery hypertension with pulmonary artery systolic pressure of 70 mmHg. She appears to come into the hospital treated and diuresed and placed on O2, discharged to [facility] and then presents back to the ER acute hypoxic respiratory failure. She presented afebrile with hypertensive pressures 190s/ 200s tachypneic with respiration rates in the 30s and hypoxic with O2 sat of 86% on a nonrebreather. Mild leukocytosis, patient is on steroids, CBC stable compared to 10/23/2020 coagulation studies within normal limits ABG showed a pH of 7.37 and PCO2 of 48.2, PO2 of 68. O2 sat did improve to 92% on nonrebreather. BMP shows worsening creatinine of 1.97 BUN of 50. Troponin of 69.3. BNP was increased to 515. Her EKG shows no acute ST-T wave changes. Her chest x-ray shows no infiltrates and only is pertinent for CHF and cardiomegaly although does not look that different from her previous chest x-ray on 10/22/2020. Seen today in hospital room, attempting to eat breakfast. Repositioned due to choking risk. Noted to be extremely short of breath with conversational dyspnea allowing 1 word to 2 word answers. Alert but very slow with responses. Lungs are full of rhonchi. O2 sat is 93% on 3 liters of oxygen. Discussed hospice services due to frequent hospitalizations and recurrent respiratory failure. Appears open to transitioning to hospice care for comfort care of her symptoms to avoid multiple hospitalizations. Patient is very deconditioned and requires assistance for transfers and bed mobility. Patient is weak and at risk for falls and functional decline. Has been able to walk 3 feet with walker times 2 assist. [facility] Medical History Acute on chronic combined systolic and diastolic heart failure Acute respiratory failure Acute respiratory failure with hypercapnia Anemia Anemia Angina pectoris Atherosclerosis of coronary artery bypass graft Atherosclerosis of coronary artery bypass graft without angina pectoris Atherosclerosis of coronary artery of [place] heart without angina pectoris Atrial fibrillation CHF (congestive heart failure) Chronic gastric ulcer with bleeding and perforation Chronic hypoxemic respiratory failure Chronic renal failure, stage 3 (moderate) CKD (chronic kidney disease) stage 3, GFR 30-59 ml/min Colon polyp COPD (chronic obstructive pulmonary disease) Diabetes Dysphagia Gastric ulcer HTN (hypertension) Hyperkalemia Ischemic cardiomyopathy Major depressive disorder Muscle weakness Non-rheumatic tricuspid valve insufficiency Non-ST elevation (NSTEMI) myocardial infarction Nonrheumatic mitral (valve) insufficiency NSTEMI (non-ST elevated myocardial infarction) (10/20/17) Obesity Old anterior wall myocardial infarction ANA (obstructive sleep apnea) Paroxysmal atrial fibrillation Secondary pulmonary arterial hypertension Sleep apnea Type 2 diabetes mellitus Unsteady gait Wheezing Home Medications calcium carbonate-vitamin D3 1 ea PO DAILY 04/19/17 [History Last Taken 10/26/20] omeprazole 40 mg PO DAILY 04/19/17 [History Last Taken 10/26/20] aspirin 81 mg PO DAILY@0800 tab 10/27/17 [Rx Last Taken 10/25/20] metoprolol tartrate 25 mg PO BID tab 10/27/17 [Rx Last Taken 10/25/20] amlodipine 10 mg tablet 10 mg PO DAILY 09/08/18 [History Last Taken 10/25/20] atorvastatin 40 mg tablet 40 mg PO QHS 02/25/19 [History Last Taken 10/25/20] clonidine 0.1 mg/24 hr weekly transdermal patch 1 patch TRANSDERMAL WE 02/25/19 [History Last Taken 10/25/20] isosorbide mononitrate 60 mg tablet,extended release 24 hr 60 mg PO DAILY 10/05/19 [History Last Taken 10/25/20] acetaminophen 650 mg PO Q4H PRN PRN 10/11/19 [History Last Taken 10/24/20] docusate sodium 100 mg PO BID 10/11/19 [History Last Taken 10/25/20] albuterol sulfate 90 mcg/actuation breath activated powder inhaler 2 inh INHALATION Q2H PRN each 08/01/20 [History Last Taken 10/25/20] dulaglutide 1.5 mg/0.5 mL subcutaneous pen injector 1.5 mg SC SA ml 08/01/20 [History Last Taken Unknown] insulin glargine 100 unit/mL (3 mL) subcutaneous pen 60 unit SUBCUT QHS ml 08/01/20 [History Last Taken 10/25/20] insulin lispro 100 unit/mL subcutaneous pen See Rx Instructions SUBCUT TIDAC insuln.pen 08/01/20 [History Last Taken 10/25/20] furosemide 20 mg PO DAILY 10/21/20 [History Last Taken 10/25/20] potassium chloride 20 meq PO DAILY 10/21/20 [History Last Taken 10/25/20] prednisone 40 mg PO DAILY #10 tab 10/23/20 [Rx Last Taken 10/25/20] apixaban 2.5 mg PO BID 10/26/20 [History Last Taken 10/25/20] ipratropium-albuterol 3 ml INHALATION Q4H PRN 10/26/20 [History Last Taken 10/26/20] Allergy/AdvReac Type Severity Reaction Status Date / Time LEANDER Inhibitors Allergy Unknown Verified 10/26/20 09:56 Family History Other No pertinent family history Surgical History H/O coronary artery bypass surgery History of appendectomy History of left heart catheterization (10/24/17) History of tonsillectomy and adenoidectomy Hx of cholecystectomy Social History Smoking Status: Never smoker alcohol intake: never substance use type: does not use ROS Constitutional Constitutional: Reports fatigue Cardiovascular Cardiovascular: Reports dyspnea at rest Respiratory/Chest Respiratory/Chest: Reports chest congestion, difficulty clearing secretions, dyspnea, dyspnea on exertion and shortness of breath at rest Gastrointestinal Gastrointestinal: Reports none Genitourinary Genitourinary: Reports none Musculoskeletal Musculoskeletal: Reports none Psychiatric Psychiatric: Reports anxiety Physical Exam Const alert General Appearance: cooperative, in distress Positive for moderate and anxious Resp Effort and Inspection: tachypneic and uses accessory muscles Auscultation: rhonchi and wheezes Cardio regular rate, regular rhythm, S1 normal heart sound and S2 normal heart sound GI normal to inspection, nondistended, normoactive bowel sounds Extremity Extremity Narrative: trace edema Neuro Neuro Narrative: Speaks in one word answers. Difficult to assess Assessment & Plan Assessment/Plan (1) COPD exacerbation: (2) Chronic respiratory failure with hypoxia: (3) Acute on chronic diastolic (congestive) heart failure: (4) ANA (obstructive sleep apnea): (5) Shortness of breath: (6) Anxiety: (7) Pulmonary artery hypertension: (8) Type 2 diabetes mellitus: QUALIFIERS: Chronic kidney disease stage 3 subtype: stage 3b (GFR 30-44) Diabetes mellitus complication detail: with chronic kidney disease Diabetes mellitus complication status: with kidney complications (9) Elevated troponin I level: (10) Debility: (11) Restlessness: PLAN: SABRINA GONZALEZ, is a 85 F who presented to the emergency department at [facility] on 10/26/2020 from [facility] for her third admission in the last month with dyspnea. Plan is as follows: 1) Chronic respiratory failure with hypoxia/CHF: Collaborated with Provider, Dr. Solomon after seeing patient this morning that hospice would be the best route for management of comfort, chronic dyspnea, decompensation and functional decline. Spoke with granddaughter, Razia who is responsible for her care and is in agreement to change code to DNRCC and approve hospice care. Agreeable to [facility] transfer if appropriate or initiation of hospice care at [facility]. Titrate Lasix as needed. 2) Anxiety/ Dyspnea/restlessness: Anxiety is a major contributor to dyspnea along with cardiac status and decline. Needs to continue with Ativan routinely and possible PRN. Would benefit from Opioid therapy for shortness of breath. Due to kidney failure, Oxycodone 5mg every 4 hours PRN dyspnea may be a viable option. D/C to [facility] for management of anxiety, dyspnea and fluid overload before transfer back to [facility] or another F. GranddaughterRazia is not sure she wants her transferred back to [facility] and is open to other options. 3) Debility: Fall risk, maintain safety with transfers 4) PAF/secondary pulmonary arterial hypertension/T2DM/ischemic cardiomyopathy/CAD s/p NSTEMI and CABG/ANA: Complicates overall care, management, recovery, and prognosis. Greater than 50% of F visit dedicated to education and counseling of hospice care services, care coordination with attending physician and staff, and plan of care moving forward. Start time: 0830 End time: 7
[2020-10-27] MEDS: Nystatin Powder 15gm Bottle 1 APPLIC TOPICAL (10:02)
[2020-10-27] MEDS: Furosemide 100 MG/10 ML Vial 80 MG IV (10:02)
[2020-10-27] MEDS: Isosorbide Mononitrate 60 MG Tablet PO (10:03)
[2020-10-27] MEDS: APIXABAN 2.5 MG TABLET PO (10:03)
[2020-10-27] MEDS: Calcium Carb/Vitamin D 1 TABLET Tablet PO (10:03)
[2020-10-27] MEDS: Pantoprazole Sodium 40 MG Tablet PO (10:03)
[2020-10-27] MEDS: 0.9% Saline Lock 10 ML Syringe IV (10:03)
[2020-10-27] MEDS: predniSONE 20 MG Tablet 40 MG PO (10:03)
[2020-10-27] MEDS: Umeclidinium Bromide Inhaler 1 PUFF INHALATION (10:03)
[2020-10-27] MEDS: amLODIPine 10 MG Tablet PO (10:03)
[2020-10-27] MEDS: Metoprolol Tartrate 25 MG Tablet PO (10:04)
--- NOTE | 2020-10-27 11:07 | CASEMGMT ---
SEDA spoke with Savi from [facility] and she spoke with patient and her granddaughter. They are going to go with Hospice and she will go to the Hospice Inpatient Unit later today. SEDA faxed information to Hospice. SEDA will also let [facility] know this information. Nikki Zarate [employer] CALLIE
[2020-10-27] MEDS: Insulin Lispro 100 UNIT/ML INSULN.PEN 14 UNIT SC (11:30)
[2020-10-27 12:16] LABS: Bedside Glucose 139 mg/dL (70-110)
--- NOTE | 2020-10-27 13:09 | DS.PCM_ITS ---
Providers Date of Admission: 10/26/20 Primary Care Physician: Dr. 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 Recurrent admission for CHF. Needs medically optimized. EMERGENT Consult: No Notified: Yes Date Notified: 10/27/20 Time Notified: 07:45 Method of Notification: Text Comments:: Needs scheduled for cardiology follow up Reason For Visit: ACUTE HYPOXEMIC RESPIRATORY FAILURE Diagnosis Discharge Diagnosis (1) Acute on chronic respiratory failure with hypoxemia: Status: Chronic Code(s): J96.21 - Acute and chronic respiratory failure with hypoxia Medications at Discharge Home Medications omeprazole 40 mg PO DAILY 04/19/17 metoprolol tartrate 25 mg PO BID tab 10/27/17 amlodipine 10 mg tablet 10 mg PO DAILY 09/08/18 clonidine 0.1 mg/24 hr weekly transdermal patch 1 patch TRANSDERMAL WE 02/25/19 isosorbide mononitrate 60 mg tablet,extended release 24 hr 60 mg PO DAILY 10/05/19 acetaminophen 650 mg PO Q4H PRN PRN 10/11/19 docusate sodium 100 mg PO BID 10/11/19 albuterol sulfate 90 mcg/actuation breath activated powder inhaler 2 inh INHALATION Q2H PRN each 08/01/20 insulin glargine 100 unit/mL (3 mL) subcutaneous pen 60 unit SUBCUT QHS ml 08/01/20 insulin lispro 100 unit/mL subcutaneous pen See Rx Instructions SUBCUT TIDAC insuln.pen 08/01/20 apixaban 2.5 mg PO BID 10/26/20 ipratropium-albuterol 3 ml INHALATION Q4H PRN 10/26/20 furosemide 40 mg PO DAILY #0 tab 10/27/20 lorazepam 1 mg PO Q8 #0 tab 10/27/20 nystatin [Nyamyc] 1 applic TOPICAL BID #0 g 10/27/20 Hospital Course Operations None Procedures None Summary of Care Provided Minutes Spent on Discharge: 45 Hospital Course: SABRINA GONZALEZ, is a 85 F who presented to the emergency department at [facility] on 10/26/2020 from [facility] with dyspnea. The patient has had 3 hospitalizations this month all related to acute hypoxic respiratory failure. 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 She had an EF of 55% with stage III diastolic dysfunction and severe pulmonary artery hypertension with a pulmonary artery systolic pressure of 70 mmHg. She seemingly goes to the cycle where she gets admitted here is treated is on nasal cannula and returns to her longterm facility and returns fairly soon with acute hypoxic respiratory failure. Upon presentation in the emergency department she was afebrile but hypertensive with systolic pressures anywhere from 190s to 200s, tachypneic with respiratory rates in the 30s, and hypoxic with an oxygen saturation of 86% on a nonrebreather. She had a mild leukocytosis but this seems to ebb and flow. She has been on steroids. The rest of her CBC remained stable when compared to 10/23/2020. Coagulation studies are within normal limits. An ABG showed a pH of 7.37 with the PCO2 of 48.2 a PO2 of 68 and an oxygen saturation of 92% on a nonrebreather. Her BMP showed mildly worsening creatinine. Her baseline creatinine appears to be 1.5-1.8. Her BNP was elevated although remains lower than she has been previously. And her troponin was elevated at 69.3. Her EKG showed no acute ST- T wave changes. Her chest x-ray showed no infiltrates and only is pertinent for CHF and cardiomegaly, although does not look that different from her previous chest x-ray on 10/22/2020. She was admitted to PCU and fairly quickly was able to be weaned from noninvasive ventilation to 6 L nasal cannula. She was diuresed and improved blood pressure control was obtained. On the a.m. of 10/27/2020 she was able to be weaned from 6 to 3 L nasal cannula and eventually to 2 L nasal cannula with stable oxygenation. Overall I suspect she has recurring acute hypoxic respiratory failure secondary to her severe pulmonary hypertension, who group 3, her severe diastolic dysfunction, uncontrolled hypertension, and anxiety. Palliative care was consulted and patient and family were agreeable to hospice at discharge. She will be discharged to the inpatient palliative care unit and if able to be stabilized back to [facility] with hospice services. Discharge diagnoses: Acute on chronic hypoxic respiratory failure -Acute issues resolved and patient back to baseline Severe pulmonary artery hypertension-who group 3 Stage III diastolic dysfunction Hypertensive emergency-resolved Troponin elevation CKD stage IIIb CAD Hypertension Hyperlipidemia PAF GERD DM-2 ANA Morbid obesity Physical Exam Const alert and no apparent distress Constitutional Narrative: Morbidly obese white female lying in bed sleeping but awakens easily, appears calm and currently on 2 L nasal cannula General Appearance: cooperative and comfortable Orientation / Consciousness: awake HEENT normocephalic, head/scalp atraumatic and moist oral mucous membranes Eyes PERRL, EOMs intact bilaterally and conjunctivae normal Neck no lymphadenopathy, supple, no JVD and no carotid bruits Resp no retractions and no use of accessory muscles Resp Narrative: Diffusely diminished, distant secondary to body habitus Auscultation: crackles; Negative for rales, rhonchi or wheezes Cardio regular rate, regular rhythm, S1 normal heart sound, S2 normal heart sound, no murmurs, no rub, no gallops, no clicks and no JVD GI normal to inspection, nondistended, normoactive bowel sounds, soft to palpation, non-tender and non-distended Extremity Extremity Narrative: 2+ bilateral lower extremity pitting, no cyanosis or clubbing Skin no rashes or lesions noted, no wounds, skin turgor normal, no jaundice, no petechiae and no mottling Neuro moves all extremities Neuro Narrative: Follows commands, moves all extremities Sensorium / Orientation: awake and alert Psych Psych Narrative: Currently calm appears comfortable Weight / BMI Weight Weight: 104.372 kg Body Mass Index (BMI) 36.0 ABG / Lab / Microbiology Data Result Diagrams: 10/27/20 05:25 10/27/20 05:25 Laboratory: Laboratory Results - last 24 hr 10/26/20 16:24: Troponin I High Sens 87.6 H* 10/26/20 16:46: POC Glucose 107 10/26/20 19:40: Troponin I High Sens 82.6 H* 10/26/20 22:14: POC Glucose 193 H 10/27/20 05:25: WBC 11.8 H, RBC 2.97 L, Hgb 8.9 L, Hct 30.9 L, MCV 104.0 H, MCH 30.0, MCHC 28.8 L, RDW Std Deviation 57.1 H, RDW Coeff of Deepali 14.9 H, Plt Count 195, MPV 11.4, Immature Gran % (Auto) 0.400, Neut % (Auto) 85.7 H, Lymph % (Auto) 4.8 L, [place] % (Auto) 7.7, Eos % (Auto) 1.3, Baso % (Auto) 0.1, Absolute Neuts (auto) 10.1 H, Absolute Lymphs (auto) 0.56 L, Nucleated RBC % 0.2 10/27/20 05:25: Sodium 145, Potassium 4.4, Chloride 109 H, Carbon Dioxide 31.0, Anion Gap 5, BUN 48 H, Creatinine 1.59 H, Estim Creat Clear Calc 25.61, Est GFR (MDRD) Af Amer 40 L, Est GFR (MDRD) Non-Af 33 L, BUN/Creatinine Ratio 30.2 H, Glucose 118 H, Calcium 8.4 L, Phosphorus 2.8, Magnesium 2.6, Total Bilirubin 0.80, AST 26, ALT 27, Alkaline Phosphatase 95, Total Protein 6.4, Albumin 2.4 L, Globulin 4.0, Albumin/Globulin Ratio 0.6 L, TSH 0.85 10/27/20 07:39: POC Glucose 122 H 10/27/20 11:28: POC Glucose 139 H D/C Instructions Discharge Diet: No restrictions Discharge Activity: No Restrictions Meaningful Use Info Meaningful Use Diagnoses (Choose all that apply): None applicable Discharge Plan Admission Admit Date/Time: 10/26/20 12:17 Primary Reason for Your Visit: Acute on chronic hypoxic respiratory failure Attending Provider: Tiffanie Solomon Primary Care Provider: Bladimir Orlando Consulting Providers: Victoriano Ny ; Wai Padilla ; Elana Bowles NP ; Zeinab Ron Instructions Patient Instructions: ED Chest Pain, Noncardiac Discharge Orders/Prescriptions Prescriptions: New nystatin [Nyamyc] 100,000 unit/gram Powder 1 applic topical BID Qty: 0 RF: 0 lorazepam 1 mg Tablet 1 mg PO Q8 Qty: 0 RF: 0 Continued amlodipine 10 mg tablet 10 mg PO DAILY RF: 0 clonidine 0.1 mg/24 hr patch weekly 1 patch transdermal WE RF: 0 isosorbide mononitrate 60 mg tablet extended release 24 hr 60 mg PO DAILY RF: 0 albuterol sulfate 90 mcg/actuation aerosol powdr breath activated 2 inh INHALATION Q2H PRN (Reason: Shortness Of Breath) RF: 0 insulin glargine 100 unit/mL (3 mL) insulin pen 60 unit subcut QHS RF: 0 insulin lispro 100 unit/mL insulin pen See Rx Instructions subcut TIDAC RF: 0 omeprazole 40 MG capsule,delayed release(DR/EC) 40 mg PO DAILY RF: 0 metoprolol tartrate 25 MG tablet 25 mg PO BID RF: 0 docusate sodium 100 MG capsule 100 mg PO BID RF: 0 acetaminophen 325 MG tablet 650 mg PO Q4H PRN PRN (Reason: Mild Pain (scale 0-3)/T>100.7) RF: 0 ipratropium-albuterol 0.5 mg-3 mg(2.5 mg base)/3 mL solution for nebulization 3 ml inhalation Q4H PRN (Reason: SOB) RF: 0 apixaban 2.5 MG tablet 2.5 mg PO BID RF: 0 Changed furosemide 20 mg tablet 40 mg PO DAILY Qty: 0 RF: 0 Discontinued atorvastatin 40 mg tablet 40 mg PO QHS RF: 0 dulaglutide 1.5 mg/0.5 mL pen injector 1.5 mg SC SA RF: 0 calcium carbonate-vitamin D3 1 EACH tablet 1 ea PO DAILY RF: 0 aspirin 81 MG tablet 81 mg PO DAILY@0800 RF: 0 potassium chloride 20 mEq tablet,ER particles/crystals 20 meq PO DAILY RF: 0 prednisone 20 mg tablet 40 mg PO DAILY Qty: 10 RF: 0 Referrals / Follow Up: Bladimir Orlando MD [Primary Care Provider] - Disposition Disposition (needs filled in before D/C Order can be placed): Hospice in Medical Facility Charges/Coding Visit Charges Inpatient E&M: 38721 Disch Hosp
--- NOTE | 2020-10-27 13:24 | CASEMGMT ---
SEDA called Nicolette with [facility] and let her know that patient will be going to the inpatient Hospice Unit today. She thanked SEDA for the update. Nikki LEDESMA
--- NOTE | 2020-10-27 13:42 | PCM.DC ---
Discharge Instructions Diet Discharge Diet: No restrictions Follow Up Care Test Results: Test results from this visit will be discussed in further detail at your follow-up appointment, if applicable. Discharge Plan Admission Admit Date/Time: 10/26/20 12:17 Primary Reason for Your Visit: Acute on chronic hypoxic respiratory failure Attending Provider: Tiffanie Solomon Primary Care Provider: Bladimir Orlando Consulting Providers: Victoriano Ny ; Wai Padilla ; Elana Bowles NP ; Zeinab Ron Instructions Patient Instructions: ED Chest Pain, Noncardiac Discharge Orders/Prescriptions Prescriptions: New nystatin [Nyamyc] 100,000 unit/gram Powder 1 applic topical BID Qty: 0 RF: 0 lorazepam 1 mg Tablet 1 mg PO Q8 Qty: 0 RF: 0 Continued amlodipine 10 mg tablet 10 mg PO DAILY RF: 0 clonidine 0.1 mg/24 hr patch weekly 1 patch transdermal WE RF: 0 isosorbide mononitrate 60 mg tablet extended release 24 hr 60 mg PO DAILY RF: 0 albuterol sulfate 90 mcg/actuation aerosol powdr breath activated 2 inh INHALATION Q2H PRN (Reason: Shortness Of Breath) RF: 0 insulin glargine 100 unit/mL (3 mL) insulin pen 60 unit subcut QHS RF: 0 insulin lispro 100 unit/mL insulin pen See Rx Instructions subcut TIDAC RF: 0 omeprazole 40 MG capsule,delayed release(DR/EC) 40 mg PO DAILY RF: 0 metoprolol tartrate 25 MG tablet 25 mg PO BID RF: 0 docusate sodium 100 MG capsule 100 mg PO BID RF: 0 acetaminophen 325 MG tablet 650 mg PO Q4H PRN PRN (Reason: Mild Pain (scale 0-3)/T>100.7) RF: 0 ipratropium-albuterol 0.5 mg-3 mg(2.5 mg base)/3 mL solution for nebulization 3 ml inhalation Q4H PRN (Reason: SOB) RF: 0 apixaban 2.5 MG tablet 2.5 mg PO BID RF: 0 Changed furosemide 20 mg tablet 40 mg PO DAILY Qty: 0 RF: 0 Discontinued atorvastatin 40 mg tablet 40 mg PO QHS RF: 0 dulaglutide 1.5 mg/0.5 mL pen injector 1.5 mg SC SA RF: 0 calcium carbonate-vitamin D3 1 EACH tablet 1 ea PO DAILY RF: 0 aspirin 81 MG tablet 81 mg PO DAILY@0800 RF: 0 potassium chloride 20 mEq tablet,ER particles/crystals 20 meq PO DAILY RF: 0 prednisone 20 mg tablet 40 mg PO DAILY Qty: 10 RF: 0 Referrals / Follow Up: Bladimir Orlando MD [Primary Care Provider] - Disposition Disposition (needs filled in before D/C Order can be placed): Hospice in Medical Facility
--- NOTE | 2020-10-27 14:05 | CASEMGMT ---
SW called [facility] and they will be meeting with patient and her granddaughter today at 3p. They will then let staff know if transport needs arranged or if Hospice will transport. Nikki Zarate [employer] WORK[employer] LEDESMA
--- NOTE | 2020-10-27 14:06 | PHA.DC.MR ---
Pharmacy Service has performed discharge medication reconciliation for this patient. The patient's discharge medication list was reviewed for discrepancies and discrepancies were resolved. Home Medications omeprazole 40 mg PO DAILY 04/19/17 metoprolol tartrate 25 mg PO BID tab 10/27/17 amlodipine 10 mg tablet 10 mg PO DAILY 09/08/18 clonidine 0.1 mg/24 hr weekly transdermal patch 1 patch TRANSDERMAL WE 02/25/19 isosorbide mononitrate 60 mg tablet,extended release 24 hr 60 mg PO DAILY 10/05/19 acetaminophen 650 mg PO Q4H PRN PRN 10/11/19 docusate sodium 100 mg PO BID 10/11/19 albuterol sulfate 90 mcg/actuation breath activated powder inhaler 2 inh INHALATION Q2H PRN each 08/01/20 insulin glargine 100 unit/mL (3 mL) subcutaneous pen 60 unit SUBCUT QHS ml 08/01/20 insulin lispro 100 unit/mL subcutaneous pen See Rx Instructions SUBCUT TIDAC insuln.pen 08/01/20 apixaban 2.5 mg PO BID 10/26/20 ipratropium-albuterol 3 ml INHALATION Q4H PRN 10/26/20 furosemide 40 mg PO DAILY #0 tab 10/27/20 lorazepam 1 mg PO Q8 #0 tab 10/27/20 nystatin [Nyamyc] 1 applic TOPICAL BID #0 g 10/27/20
--- NOTE | 2020-10-27 15:18 | CASEMGMT ---
Readmission chart review: Pt admitted 10/21-10/23/20 for Acute on chronic HF. Pt has had several visits for same in the last month or so. 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 Palliative was referred and saw pt during last visit. Pt returned to [facility] ED on 10/26/20 for SOB, hypoxia again and was admitted for Acute hypoxemic resp failure. Palliative saw pt this am and pt was referred for [facility] and family is agreeable. Pt to be discharged to [facility] this afternoon for symtom management and then possibly back to [facility] on hospice depending upon course. CM to follow for any further discharge planning/needs. Ronel ROWLAND CM
--- NOTE | 2020-10-27 15:40 | CASEMGMT ---
Patient is ready for discharge to [facility] Inpatient [facility]. SEDA faxed DNR and d/c summary to Hospice. SEDA also called and notified Adonis at Hospice that they can come and case picker patient per Jay (liaison from Hospice) request. Plan: d/c to Inpatient Hospice Unit Nikki LEDESMA
--- NOTE | 2020-10-27 15:59 | NURSING ---
This RN called and gave report to toucher upShobha
== END 2020-10-27 16:30 | disposition hospice, inpatient (51) | DRG 291 ==
LOC: ED 11:08 → PCU 14:19
PROVIDERS: Admitting Provider Internal Medicine; Emergency Provider Student in an Organized Health Care Education/Training Program; PCP Family Medicine; Visit Provider Internal Medicine
DX: I13.0 Hypertensive heart and chronic kidney disease with heart failure and stage 1 through stage 4 chronic kidney disease, or unspecified chronic kidney disease (principal); J96.21 Acute and chronic respiratory failure with hypoxia; I50.33 Acute on chronic diastolic (congestive) heart failure; I16.1 Hypertensive emergency; N17.9 Acute kidney failure, unspecified; I27.23 Pulmonary hypertension due to lung diseases and hypoxia; N18.32 Chronic kidney disease, stage 3b; E11.22 Type 2 diabetes mellitus with diabetic chronic kidney disease; I25.10 Atherosclerotic heart disease of native coronary artery without angina pectoris; E78.5 Hyperlipidemia, unspecified; I48.0 Paroxysmal atrial fibrillation; K21.9 Gastro-esophageal reflux disease without esophagitis; G47.33 Obstructive sleep apnea (adult) (pediatric); E66.01 Morbid (severe) obesity due to excess calories; Z79.02 Long term (current) use of antithrombotics/antiplatelets; Z79.899 Other long term (current) drug therapy; D72.829 Elevated white blood cell count, unspecified; Z68.36 Body mass index [BMI] 36.0-36.9, adult; Z99.81 Dependence on supplemental oxygen; F41.9 Anxiety disorder, unspecified; T38.0X5A Adverse effect of glucocorticoids and synthetic analogues, initial encounter; E11.65 Type 2 diabetes mellitus with hyperglycemia; D63.1 Anemia in chronic kidney disease; D64.9 Anemia, unspecified; I25.709 Atherosclerosis of coronary artery bypass graft(s), unspecified, with unspecified angina pectoris
CPT/HCPCS: 36415; 36600; 71045; 80048; 80053; 80061; 80076; 82803; 82962; 83036; 83735; 83880; 84100; 84443; 84484; 85025; 85027; 93005; 94002; 94003; 94640; 94660; 97163; 99251; 99285; A4216; G0463; J1940